=== PATIENT | female | born 1955 | race American Indian/Alaskan Native ===

== ENCOUNTER 2019-03-10 20:11 | Emergency (ER) | payer MEDICARE ==
--- NOTE | 2019-03-10 21:00 | Event Note ---
ED Screening Note Date of service: 03/10/19 Time: 20:46 ED Screening Note: 64 y/o female comes in detox and having thought of hurting herself. Wants to detox from cocaine and Alcohol. Last used cocaine 22 hours ago. Feeling jitter uses cocaine daily. This initial assessment/diagnostic orders/clinical plan/treatment(s) is/are subject to change based on patients health status, clinical progression and re- assessment by fellow clinical providers in the ED. Further treatment and workup at subsequent clinical providers discretion. Patient/guardian urged not to elope from the ED as their condition may be serious if not clinically assessed and managed. Initial orders include:
--- NOTE | 2019-03-10 21:11 | Emergency Department Report ---
ED Psych HPI - General Chief Complaint: Medical Clearance Stated Complaint: DETOX Time Seen by Provider: 03/10/19 20:45 Source: patient Mode of arrival: Ambulatory Limitations: No Limitations - History of Present Illness Initial Comments: Is a 64-year-old female that presents emergency room with complaints of desiring detox and suicidal ideations. Patient states she started using drugs. Patient states she is cocaine and alcohol regularly. Patient states she is having suicidal thoughts with plan. Patient states her plan is overdose. Patient stat es she feels depressed. Patient states she wants some help. MD Complaint: suicidal ideation, feels depressed -: Sudden Associated Psychiatric Symptoms: depression, suicidal ideation History of same: Yes Quality: constant Improves With: none Worsens With: none Context: recent alcohol abuse, recent drug abuse Associated Symptoms: denies: confusion, headache, shortness of breath, nausea, vomiting, syncope, insomnia If Self Harm: admits thoughts of, has plan - Related Data Home Medications Medication Instructions Recorded Confirmed Last Taken Lisinopril [Zestril] 20 mg PO QDAY 07/11/13 03/10/19 04/06/14 hydroCHLOROthiazide [Hctz] 20 mg PO QDAY 07/11/13 03/10/19 04/06/14 traZODone [Desyrel] 50 mg PO QHS 08/09/13 03/10/19 04/05/14 ARIPiprazole [Abilify TAB] 10 mg PO DAILY 03/23/14 03/10/19 04/06/14 Carvedilol [Coreg] 6.25 mg PO DAILY 04/06/14 03/10/19 04/06/14 Oxybutynin [Ditropan] 5 mg PO DAILY 04/06/14 03/10/19 04/06/14 Allopurinol [Zyloprim] 100 mg PO QDAY 03/10/19 03/10/19 03/10/19 Amiodarone HCl [Amiodarone 100 MG 200 mg PO BID 03/10/19 03/10/19 03/10/19 TAB] Budesonide/Formoterol Fumarate 10.2 gm IH Q4H 03/10/19 03/10/19 03/10/19 [Symbicort 160-4.5 Mcg Inhaler] Chlorpheniramine/Dextromethorp 1 each PO Q6HR 03/10/19 03/10/19 03/10/19 [Cough-Cold Tablet] Citalopram [celeXA] 10 mg PO QDAY 03/10/19 03/10/19 03/10/19 Pantoprazole [Protonix] 40 mg PO QDAY 03/10/19 03/10/19 03/10/19 amLODIPine [Norvasc] 10 mg PO DAILY 03/10/19 03/10/19 03/10/19 Previous Rx's Medication Instructions Recorded Last Taken Type Naproxen [Naprosyn TAB] 500 mg PO BID PRN #30 tablet 04/07/14 Unknown Rx Allergies Allergy/AdvReac Type Severity Reaction Status Date / Time codeine Allergy Rash Verified 07/11/13 09:12 Sulfa (Sulfonamide Allergy Rash Verified 07/11/13 09:12 Antibiotics) ED Review of Systems ROS: Stated complaint: DETOX Other details as noted in HPI Constitutional: denies: chills, fever Eyes: denies: eye pain, eye discharge, vision change ENT: denies: ear pain, throat pain Respiratory: denies: cough, shortness of breath, wheezing Cardiovascular: denies: chest pain, palpitations Endocrine: no symptoms reported Gastrointestinal: denies: abdominal pain, nausea, diarrhea Genitourinary: denies: urgency, dysuria, discharge Musculoskeletal: denies: back pain, joint swelling, arthralgia Skin: denies: rash, lesions Neurological: denies: headache, weakness, paresthesias Psychiatric: depression, suicidal thoughts. denies: anxiety Hematological/Lymphatic: denies: easy bleeding, easy bruising ED Past Medical Hx - Past Medical History Previous Medical History?: Yes Hx Hypertension: Yes Hx Congestive Heart Failure: Yes Hx GERD: Yes Hx Renal Disease: Yes (ckd) Hx Arthritis: Yes Hx Psychiatric Treatment: Yes (SCHIZO-AFFECTIVE) Hx COPD: Yes - Surgical History Past Surgical History?: Yes Hx Cholecystectomy: Yes Additional Surgical History: Cholecystectomy and hysterectomy, rt roary cuff, heart ablation - Family History Family history: no significant - Social History Smoking Status: Current Every Day Smoker Substance Use Type: Alcohol, Cocaine - Medications Home Medications: Home Medications Medication Instructions Recorded Confirmed Last Taken Type Lisinopril [Zestril] 20 mg PO QDAY 07/11/13 03/10/19 04/06/14 History hydroCHLOROthiazide [Hctz] 20 mg PO QDAY 07/11/13 03/10/19 04/06/14 History traZODone [Desyrel] 50 mg PO QHS 08/09/13 03/10/19 04/05/14 History ARIPiprazole [Abilify TAB] 10 mg PO DAILY 03/23/14 03/10/19 04/06/14 History Carvedilol [Coreg] 6.25 mg PO DAILY 04/06/14 03/10/19 04/06/14 History Oxybutynin [Ditropan] 5 mg PO DAILY 04/06/14 03/10/19 04/06/14 History Naproxen [Naprosyn TAB] 500 mg PO BID PRN #30 tablet 04/07/14 03/10/19 Unknown Rx Allopurinol [Zyloprim] 100 mg PO QDAY 03/10/19 03/10/19 03/10/19 History Amiodarone HCl [Amiodarone 100 MG 200 mg PO BID 03/10/19 03/10/19 03/10/19 History TAB] Budesonide/Formoterol Fumarate 10.2 gm IH Q4H 03/10/19 03/10/19 03/10/19 History [Symbicort 160-4.5 Mcg Inhaler] Chlorpheniramine/Dextromethorp 1 each PO Q6HR 03/10/19 03/10/19 03/10/19 History [Cough-Cold Tablet] Citalopram [celeXA] 10 mg PO QDAY 03/10/19 03/10/19 03/10/19 History Pantoprazole [Protonix] 40 mg PO QDAY 03/10/19 03/10/19 03/10/19 History amLODIPine [Norvasc] 10 mg PO DAILY 03/10/19 03/10/19 03/10/19 History ED Physical Exam - General Limitations: No Limitations General appearance: alert, in no apparent distress - Head Head exam: Present: atraumatic, normocephalic - Eye Eye exam: Present: normal appearance - ENT ENT exam: Present: mucous membranes moist - Neck Neck exam: Present: normal inspection - Respiratory Respiratory exam: Present: normal lung sounds bilaterally. Absent: respiratory distress - Cardiovascular Cardiovascular Exam: Present: regular rate, normal rhythm. Absent: systolic murmur, diastolic murmur, rubs, gallop - GI/Abdominal GI/Abdominal exam: Present: soft, normal bowel sounds - Rectal Rectal exam: Present: deferred - Extremities Exam Extremities exam: Present: normal inspection - Back Exam Back exam: Present: normal inspection - Neurological Exam Neurological exam: Present: alert, oriented X3 - Psychiatric Psychiatric exam: Present: depressed, suicidal ideation - Skin Skin exam: Present: warm, dry, intact, normal color. Absent: rash ED Course Vital Signs 03/10/19 03/11/19 03/11/19 20:46 01:57 07:00 Temperature 97.9 F 98.4 F 98.1 F Pulse Rate 80 89 80 Respiratory 16 18 18 Rate Blood Pressure 177/80 Blood Pressure 158/75 161/76 [Left] O2 Sat by Pulse 100 98 99 Oximetry 03/11/19 03/11/19 10:08 10:09 Temperature Pulse Rate 80 80 Respiratory Rate Blood Pressure 161/76 161/76 Blood Pressure [Left] O2 Sat by Pulse Oximetry - Reevaluation(s) Reevaluation #1: I discussed all results with patient. Patient is medically clear. Patient will remain in the ER until she is cleared by psychiatry. 03/11/19 00:09 ED Medical Decision Making - Lab Data Result diagrams: 03/10/19 21:32 03/10/19 21:32 - Medical Decision Making pt is 64-year-old female that presents emergency room with complaints of sore ideations, depression. Patient has a plan to overdose. Patient also came to the ER for detox. Patient is medically clear. Patient's labs are essentially unremarkable except for elevated creatinine acute dehydration. - Differential Diagnosis suicidal ideations. Depression. Critical care attestation.: If time is entered above; I have spent that time in minutes in the direct care of this critically ill patient, excluding procedure time. ED Disposition Clinical Impression: Suicidal ideations, Drug abuse, Alcohol abuse, Desire for detoxification, Medical clearance for psychiatric admission Depression Qualifiers: Depression Type: unspecified Qualified Code(s): F32.9 - Major depressive disorder, single episode, unspecified CKD (chronic kidney disease) Qualifiers: Chronic kidney disease stage: unspecified stage Qualified Code(s): N18.9 - Chronic kidney disease, unspecified Disposition: DC/TX-65 PSY HOSP/PSY UNIT Is pt being admited?: No Does the pt Need Aspirin: No Condition: Stable Time of Disposition: 00:11
[2019-03-10 21:51] LABS: Mean Corpuscular HGB Conc 32 % (30-34); Mean Corpuscular Volume 89 fl (79-97); Platelet Count 412 K/mm3 (140-440); Red Blood Count 4.48 M/mm3 (3.65-5.03)
[2019-03-10 22:07] LABS: Alanine Aminotransferase 7 units/L (7-56); Albumin 3.7 g/dL (3.9-5); BUN/Creatinine Ratio 12; Blood Urea Nitrogen 22 mg/dL (7-17); Hemolysis Index 8
[2019-03-10 22:59] LABS: Basophils % (Manual) 0 % (0.0-1.8); Total Cells Counted 100
[2019-03-10 23:00] LABS: Anisocytosis 1+; Ovalocytes 1+; Platelet Estimate Consistent w Auto
[2019-03-11 00:31] LABS: Bilirubin,Urine NEG (Negative); Blood,Urine NEG (Negative); Color,Urine Yellow (Yellow); Mucus,Urine FEW /HPF; Protein,Urine <15 mg/dL mg/dL (Negative); Urobilinogen,Urine < 2.0 mg/dL (<2.0)
[2019-03-11 00:32] LABS: Amphetamine Screen,Urine PRESUMPTIVE NEGATIVE; Benzodiazepines Screen,Urine PRESUMPTIVE NEGATIVE; Cannabinoid Screen,Urine PRESUMPTIVE NEGATIVE; Methadone Screen,Urine PRESUMPTIVE NEGATIVE; Opiate Screen,Urine PRESUMPTIVE NEGATIVE
[2019-03-11 00:50] LABS: Cocaine Screen,Urine PRESUMPTIVE POSITIVE
[2019-03-11] MEDS: ACETAMINOPHEN 325 MG TAB PO PRN ×2 (03:10→11:41)
[2019-03-11] MEDS ORDERED: amLODIPine 10 MG TAB PO SCH (10:00)
[2019-03-11] MEDS ORDERED: LISINOPRIL 20 MG TAB PO SCH (10:00)
[2019-03-11 10:09] VITALS: BP 161/76
--- NOTE | 2019-03-11 13:04 | Consultation ---
History of Present Illness - Reason for Consult Consult date: 03/11/19 Reason for consult: Mental Health Evaluation Requesting physician: BOY CRUMP III - Chief Complaint Chief complaint: " I can't take it no more" - History of Present Psychiatric Illness Patient is a 64 y/o female that presents for evaluation. Patient presented to the ER with complaints of pain to hip. She reported ongoing pain for the past 4 months that has been diagnosed as either gout or arthritis. She reports the pain has been so significant that she had begun self-medicating. She was smoking crack cocaine to help manage her pain and her depression. She recently lost the love of her life to cancer and that along with the pain made her suicidal. She states she knows it is not her time, but she doesn't want to be here. She denies auditory and visual hallucinations. She denies any homicidal ideation. Medications and Allergies Allergies Allergy/AdvReac Type Severity Reaction Status Date / Time codeine Allergy Rash Verified 07/11/13 09:12 Sulfa (Sulfonamide Allergy Rash Verified 07/11/13 09:12 Antibiotics) Home Medications Medication Instructions Recorded Confirmed Last Taken Type Lisinopril [Zestril] 20 mg PO QDAY 07/11/13 03/10/19 04/06/14 History hydroCHLOROthiazide [Hctz] 20 mg PO QDAY 07/11/13 03/10/19 04/06/14 History traZODone [Desyrel] 50 mg PO QHS 08/09/13 03/10/19 04/05/14 History ARIPiprazole [Abilify TAB] 10 mg PO DAILY 03/23/14 03/10/19 04/06/14 History Carvedilol [Coreg] 6.25 mg PO DAILY 04/06/14 03/10/19 04/06/14 History Oxybutynin [Ditropan] 5 mg PO DAILY 04/06/14 03/10/19 04/06/14 History Naproxen [Naprosyn TAB] 500 mg PO BID PRN #30 tablet 04/07/14 03/10/19 Unknown Rx Allopurinol [Zyloprim] 100 mg PO QDAY 03/10/19 03/10/19 03/10/19 History Amiodarone HCl [Amiodarone 100 MG 200 mg PO BID 10/04/1803/10/19 03/10/19 History TAB] Budesonide/Formoterol Fumarate 10.2 gm IH Q4H 03/10/19 03/10/19 03/10/19 History [Symbicort 160-4.5 Mcg Inhaler] Chlorpheniramine/Dextromethorp 1 each PO Q6HR 03/10/19 03/10/19 03/10/19 History [Cough-Cold Tablet] Citalopram [celeXA] 10 mg PO QDAY 03/10/19 03/10/19 03/10/19 History Pantoprazole [Protonix] 40 mg PO QDAY 03/10/19 03/10/19 03/10/19 History amLODIPine [Norvasc] 10 mg PO DAILY 03/10/19 03/10/19 03/10/19 History Active Meds: Active Medications Acetaminophen (Tylenol) 650 mg PO Q8H PRN PRN Reason: Pain, Mild (1-3) Stop: 03/15/19 02:42 Last Admin: 03/11/19 11:41 Dose: 650 mg Documented by: Amlodipine Besylate (Norvasc) 10 mg PO DAILY [facility] Last Admin: 03/11/19 10:08 Dose: 10 mg Documented by: Lisinopril (Zestril) 20 mg PO QDAY [facility] Last Admin: 03/11/19 10:09 Dose: 20 mg Documented by: Trazodone HCl (Desyrel) 50 mg PO QHS [facility] Past psychiatric history - Past Medical History Past Medical History: hypertension - past Psychiatric treatment and history Psych: Anxiety, Depression - Social History Social history: smoking Mental Status Exam - Vital signs Last Vital Signs Temp 98.1 F 03/11/19 07:00 Pulse 80 03/11/19 10:09 Resp 18 03/11/19 07:00 BP 161/76 03/11/19 10:09 Pulse Ox 99 03/11/19 07:00 - Exam Orientation: time, place, person Affect: depressed, anxious Mood: congruent with affect Thought Process: Circumstantial Perceptions: none Speech: normal rate and pattern Concentration: distractible Motor activity: restless Level of consciousness: alert Memory: Intact Sleep Symptoms: Insomnia Interaction: irritable, guarded Results Result Diagrams: 03/10/19 21:32 03/10/19 21:32 Abnormal lab results 03/10/19 03/10/19 03/10/19 Range/Units 21:32 21:32 21:32 RDW 17.0 H (13.2-15.2) % Lymphocytes % (Manual) 39.0 H (13.4-35.0) % BUN 22 H (7-17) mg/dL Creatinine 1.8 H (0.7-1.2) mg/dL Glucose 149 H (65-100) mg/dL Albumin 3.7 L (3.9-5) g/dL Salicylates < 0.3 L (2.8-20.0) mg/dL Acetaminophen (10.0-30.0) ug/mL 03/10/19 Range/Units 21:32 RDW (13.2-15.2) % Lymphocytes % (Manual) (13.4-35.0) % BUN (7-17) mg/dL Creatinine (0.7-1.2) mg/dL Glucose (65-100) mg/dL Albumin (3.9-5) g/dL Salicylates (2.8-20.0) mg/dL Acetaminophen < 5.0 L (10.0-30.0) ug/mL All other labs normal. Assessment and Plan Assessment and plan: Assessment and Plan MDD and SI Patient to continue abilify. we discussed current meds and side effects. She has been accepted at [facility]. No changes at this time. We will staff with Dr. Cody MD
[2019-03-11] MEDS ORDERED: traZODone 50 MG TAB PO SCH (22:00)
== END 2019-03-11 15:17 ==
LOC: ED 20:11
DX: F32.9 Major depressive disorder, single episode, unspecified (principal); Z88.2 Allergy status to sulfonamides; Z88.6 Allergy status to analgesic agent
CPT/HCPCS: 36415; 80053; 80307; 80320; 81001; 85007; 85025; G0480

== ENCOUNTER 2019-03-24 06:11 | Inpatient (IN) | payer MEDICARE ==
--- NOTE | 2019-03-24 06:45 | XRay Report ---
CHEST 1 VIEW INDICATION / CLINICAL INFORMATION: Chest Pain. COMPARISON: None available. FINDINGS: SUPPORT DEVICES: None. HEART / MEDIASTINUM: No significant abnormality. LUNGS / PLEURA: No significant pulmonary or pleural abnormality. No pneumothorax. ADDITIONAL FINDINGS: No significant additional findings. IMPRESSION: 1. No acute findings. Signer Name: Titus Kaur MD Signed: 03/24/2019 6:41 AM Workstation Name: [email or web address]
--- NOTE | 2019-03-24 08:24 | Emergency Department Report ---
ED Chest Pain HPI - General Chief Complaint: Chest Pain Stated Complaint: VALERIO/FEVER/CP/VISION BLURRED Time Seen by Provider: 03/24/19 08:18 Source: patient Mode of arrival: Wheelchair Limitations: Physical Limitation - History of Present Illness Initial Comments: 64-year-old -[place] female patient with history of hypertension, CKD, and drug and alcohol abuse presents to the ED with complaints of left-sided chest pain this morning. Patient states the pain is stabbing and 8 out of 10 in severity. She denies history of AR/CVA/DVT/PE, recent long travel, or leg pain/swelling. Denies hormonal therapy. She states she is also having some sh ortness of breath. Mom has history of heart disease. Pain worsens with exertion. She also states she is having chills and feels like she has a fever. -: Sudden Onset: during rest Pain Location: left chest Severity scale (0 -10): 8 Quality: sharp Consistency: constant Improves With: nothing Worsens With: inspiration re: denies: sense of impending doom Treatments Prior to Arrival: none - Related Data Home Medications Medication Instructions Recorded Confirmed Last Taken Lisinopril [Zestril] 20 mg PO QDAY 07/11/13 03/10/19 04/06/14 hydroCHLOROthiazide [Hctz] 20 mg PO QDAY 07/11/13 03/10/19 04/06/14 traZODone [Desyrel] 50 mg PO QHS 08/09/13 03/10/19 04/05/14 ARIPiprazole [Abilify TAB] 10 mg PO DAILY 03/23/14 03/10/19 04/06/14 Carvedilol [Coreg] 6.25 mg PO DAILY 04/06/14 03/10/19 04/06/14 Oxybutynin [Ditropan] 5 mg PO DAILY 04/06/14 03/10/19 04/06/14 Allopurinol [Zyloprim] 100 mg PO QDAY 03/10/19 03/10/19 03/10/19 Amiodarone HCl [Amiodarone 100 MG 200 mg PO BID 03/10/19 03/10/19 03/10/19 TAB] Budesonide/Formoterol Fumarate 10.2 gm IH Q4H 03/10/19 03/10/1903/10/19 [Symbicort 160-4.5 Mcg Inhaler] Chlorpheniramine/Dextromethorp 1 each PO Q6HR 03/10/19 03/10/19 03/10/19 [Cough-Cold Tablet] Citalopram [celeXA] 10 mg PO QDAY 03/10/19 03/10/19 03/10/19 Pantoprazole [Protonix] 40 mg PO QDAY 03/10/19 03/10/19 03/10/19 amLODIPine [Norvasc] 10 mg PO DAILY 03/10/19 03/10/19 03/10/19 Previous Rx's Medication Instructions Recorded Last Taken Type Naproxen [Naprosyn TAB] 500 mg PO BID PRN #30 tablet 04/07/14 Unknown Rx Allergies Allergy/AdvReac Type Severity Reaction Status Date / Time codeine Allergy Rash Verified 07/11/13 09:12 Sulfa (Sulfonamide Allergy Rash Verified 07/11/13 09:12 Antibiotics) Heart Score - HEART Score History: Slightly suspicious EKG: Non-specific Age: 45-65 Risk factors: > 3 risk factors or hx of atherosclerotic disease Troponin: < normal limit HEART Score: 4 - Critical Actions Critical Actions: 4-6 pts:12-16.6% risk of adverse cardiac event. Should be admitted ED Review of Systems ROS: Stated complaint: VALERIO/FEVER/CP/VISION BLURRED Other details as noted in HPI Constitutional: no symptoms reported, chills, fever Eyes: denies: vision change ENT: throat pain. denies: ear pain Respiratory: cough (non productive, very mild per pt ), shortness of breath Cardiovascular: chest pain Gastrointestinal: denies: abdominal pain, nausea, vomiting Neurological: denies: headache, weakness, numbness, confusion, abnormal gait ED Past Medical Hx - Past Medical History Previous Medical History?: Yes Hx Hypertension: Yes Hx Congestive Heart Failure: Yes Hx GERD: Yes Hx Renal Disease: Yes (ckd) Hx Arthritis: Yes Hx Psychiatric Treatment: Yes (SCHIZO-AFFECTIVE) Hx COPD: Yes - Surgical History Past Surgical History?: Yes Hx Cholecystectomy: Yes Additional Surgical History: Cholecystectomy and hysterectomy, rt roary cuff, heart ablation - Social History Smoking Status: Current Every Day Smoker Substance Use Type: None - Medications Home Medications: Home Medications Medication Instructions Recorded Confirmed Last Taken Type Lisinopril [Zestril] 20 mg PO QDAY 07/11/13 03/10/19 04/06/14 History hydroCHLOROthiazide [Hctz] 20 mg PO QDAY 07/11/13 03/10/19 04/06/14 History traZODone [Desyrel] 50 mg PO QHS 08/09/13 03/10/19 04/05/14 History ARIPiprazole [Abilify TAB] 10 mg PO DAILY 03/23/14 03/10/19 04/06/14 History Carvedilol [Coreg] 6.25 mg PO DAILY 04/06/14 03/10/19 04/06/14 History Oxybutynin [Ditropan] 5 mg PO DAILY 04/06/14 03/10/19 04/06/14 History Naproxen [Naprosyn TAB] 500 mg PO BID PRN #30 tablet 04/07/14 03/10/19 Unknown Rx Allopurinol [Zyloprim] 100 mg PO QDAY 03/10/19 03/10/19 03/10/19 History Amiodarone HCl [Amiodarone 100 MG 200 mg PO BID 03/10/19 03/10/19 03/10/19 History TAB] Budesonide/Formoterol Fumarate 10.2 gm IH Q4H 03/10/19 03/10/19 03/10/19 History [Symbicort 160-4.5 Mcg Inhaler] Chlorpheniramine/Dextromethorp 1 each PO Q6HR 03/10/19 03/10/19 03/10/19 History [Cough-Cold Tablet] Citalopram [celeXA] 10 mg PO QDAY 03/10/19 03/10/19 03/10/19 History Pantoprazole [Protonix] 40 mg PO QDAY 03/10/19 03/10/19 03/10/19 History amLODIPine [Norvasc] 10 mg PO DAILY 03/10/19 03/10/19 03/10/19 History ED Physical Exam - General Limitations: Physical Limitation - Head Head exam: Present: atraumatic, normocephalic - Eye Eye exam: Present: normal appearance, PERRL - ENT ENT exam: Present: mucous membranes moist, other (minimal erythema noted of oropharynx) - Neck Neck exam: Present: normal inspection. Absent: tenderness, lymphadenopathy - Respiratory Respiratory exam: Present: normal lung sounds bilaterally. Absent: respiratory distress - Cardiovascular Cardiovascular Exam: Present: regular rate, normal rhythm, normal heart sounds - GI/Abdominal GI/Abdominal exam: Present: soft, normal bowel sounds. Absent: tenderness - Extremities Exam Extremities exam: Present: normal inspection. Absent: pedal edema, joint swelling, calf tenderness - Back Exam Back exam: Present: normal inspection - Neurological Exam Neurological exam: Present: alert, oriented X3 - Psychiatric Psychiatric exam: Present: normal affect, normal mood - Skin Skin exam: Present: warm, dry, intact, normal color. Absent: rash ED Course Vital Signs 03/24/19 03/24/19 03/24/19 06:14 08:08 08:30 Temperature 97.7 F Pulse Rate 62 60 62 Respiratory 22 13 10 L Rate Blood Pressure 140/57 163/65 Blood Pressure [Right] O2 Sat by Pulse 98 98 Oximetry 03/24/19 03/24/19 03/24/19 08:40 09:00 09:30 Temperature 98.0 F Pulse Rate 59 L 61 64 Respiratory 15 12 16 Rate Blood Pressure 139/70 157/67 Blood Pressure 132/54 [Right] O2 Sat by Pulse 100 96 97 Oximetry 03/24/19 03/24/19 03/24/19 10:00 10:30 11:00 Temperature Pulse Rate 64 76 70 Respiratory 14 14 22 Rate Blood Pressure 170/67 152/74 152/74 Blood Pressure [Right] O2 Sat by Pulse 97 98 93 Oximetry ED Medical Decision Making - Lab Data Result diagrams: 03/24/19 08:10 03/24/19 08:10 Lab Results 03/24/19 03/24/19 03/24/19 Range/Units 08:10 08:10 08:10 WBC 5.5 (4.5-11.0) K/mm3 RBC 4.26 (3.65-5.03) M/mm3 Hgb 12.1 (10.1-14.3) gm/dl Hct 37.9 (30.3-42.9) % MCV 89 (79-97) fl MCH 28 (28-32) pg MCHC 32 (30-34) % RDW 17.1 H (13.2-15.2) % Plt Count 334 (140-440) K/mm3 Lymph % (Auto) 33.7 (13.4-35.0) % [place] % (Auto) 10.9 H (0.0-7.3) % Eos % (Auto) 1.9 (0.0-4.3) % Baso % (Auto) 0.8 (0.0-1.8) % Lymph # 1.9 (1.2-5.4) K/mm3 [place] # 0.6 (0.0-0.8) K/mm3 Eos # 0.1 (0.0-0.4) K/mm3 Baso # 0.0 (0.0-0.1) K/mm3 Seg Neutrophils % 52.7 (40.0-70.0) % Seg Neutrophils # 2.9 (1.8-7.7) K/mm3 Sodium 143 (137-145) mmol/L Potassium 4.6 (3.6-5.0) mmol/L Chloride 104.4 (98-107) mmol/L Carbon Dioxide 25 (22-30) mmol/L Anion Gap 18 mmol/L BUN 25 H (7-17) mg/dL Creatinine 2.0 H (0.7-1.2) mg/dL Estimated GFR 30 ml/min BUN/Creatinine Ratio 13 % Glucose 81 (65-100) mg/dL Calcium 8.6 (8.4-10.2) mg/dL Total Creatine Kinase 57 (30-135) units/L Troponin T < 0.010 (0.00-0.029) ng/mL - EKG Data Rate: normal - Radiology Data Radiology results: report reviewed CHEST 1 VIEW INDICATION / CLINICAL INFORMATION: Chest Pain. COMPARISON: None available. FINDINGS: SUPPORT DEVICES: None. HEART / MEDIASTINUM: No significant abnormality. LUNGS / PLEURA: No significant pulmonary or pleural abnormality. No pneumothorax. ADDITIONAL FINDINGS: No significant additional findings. IMPRESSION: 1. No acute findings. - Medical Decision Making Patient here were complaints of chest pain and shortness of breath. History of cocaine abuse. Troponin and normal EKG without acute findings. Chest x-ray without acute findings. Heart Score = 4. Patient to be admitted for observation given heart score. Critical care attestation.: If time is entered above; I have spent that time in minutes in the direct care of this critically ill patient, excluding procedure time. ED Disposition Clinical Impression: Chest pain Qualifiers: Chest pain type: other chest pain Qualified Code(s): R07.89 - Other chest pain; R07.8 - Other chest pain Disposition: DC-09 OP ADMIT IP TO THIS HOSP Is pt being admited?: Yes Condition: Stable
[2019-03-24] MEDS ORDERED: ASPIRIN 81 MG TAB CHEW PO ONE (08:26)
[2019-03-24 08:39] LABS: Basophils % (Auto) 0.8 % (0.0-1.8); Eosinophils # (Auto) 0.1 K/mm3 (0.0-0.4); Eosinophils % (Auto) 1.9 % (0.0-4.3); Hematocrit 37.9 % (30.3-42.9); Hemoglobin 12.1 gm/dl (10.1-14.3); Lymphocytes # (Auto) 1.9 K/mm3 (1.2-5.4); Lymphocytes % (Auto) 33.7 % (13.4-35.0); Mean Corpuscular HGB Conc 32 % (30-34); Mean Corpuscular Volume 89 fl (79-97); Monocytes # (Auto) 0.6 K/mm3 (0.0-0.8); Monocytes % (Auto) 10.9 % (0.0-7.3); Platelet Count 334 K/mm3 (140-440); Red Blood Count 4.26 M/mm3 (3.65-5.03); Red Cell Distribution Width 17.1 % (13.2-15.2)
[2019-03-24 09:01] LABS: BUN/Creatinine Ratio 13; Blood Urea Nitrogen 25 mg/dL (7-17); Calcium 8.6 mg/dL (8.4-10.2); Hemolysis Index 2
--- NOTE | 2019-03-24 11:53 | History and Physical Report ---
History of Present Illness Date of examination: 03/24/19 Date of admission: 03/24/19 10:18 Chief complaint: Chest pain History of present illness: Patient is 64-year-old with history of hypertension and hyperlipidemia, CHF and COPD. He presents with chest pain and shortness of breath with generalized weakness. Chest pain is 8 out of 10 left-sided chest. It is a sharp pain with no radiation. Pain gets worse on exertion. She also complains of shortness of breath worse on exertion, and generalized weakness. Patient therefore came to the Emergency Department for Further Evaluation. She was seen and examined in Emergency Department. Initial Troponin Was Normal. Chest X-Ray Was Normal. Will place on Obervation to rule out acute coronary syndrome. Past History Past Medical History: COPD, heart failure, hypertension, hyperlipidemia, renal failure (chronic kidney disease), other (Schizophrenia,bipolar) Past Surgical History: hysterectomy, tonsillectomy, Other (shoulder surgery, cardiac cath) Social history: , smoking, alcohol abuse, full code Family history: CAD, cancer, diabetes, hypertension Medications and Allergies Allergies Allergy/AdvReac Type Severity Reaction Status Date / Time codeine Allergy Rash Verified 07/11/13 09:12 Sulfa (Sulfonamide Allergy Rash Verified 07/11/13 09:12 Antibiotics) Home Medications Medication Instructions Recorded Confirmed Last Taken Type Lisinopril [Zestril] 20 mg PO QDAY 07/11/13 03/10/19 04/06/14 History hydroCHLOROthiazide [Hctz] 20 mg PO QDAY 07/11/13 03/10/19 04/06/14 History traZODone [Desyrel] 50 mg PO QHS 08/09/13 03/10/19 04/05/14 History ARIPiprazole [Abilify TAB] 10 mg PO DAILY 03/23/14 03/10/19 04/06/14 History Carvedilol [Coreg] 6.25 mg PO DAILY 04/06/14 03/10/19 04/06/14 History Oxybutynin [Ditropan] 5 mg PO DAILY 04/06/14 03/10/19 04/06/14 History Naproxen [Naprosyn TAB] 500 mg PO BID PRN #30 tablet 04/07/14 03/10/19 Unknown Rx Allopurinol [Zyloprim] 100 mg PO QDAY 03/10/19 03/10/19 03/10/19 History Amiodarone HCl [Amiodarone 100 MG 200 mg PO BID 03/10/19 03/10/19 03/10/19 History TAB] Budesonide/Formoterol Fumarate 10.2 gm IH Q4H 03/10/19 03/10/19 03/10/19 History [Symbicort 160-4.5 Mcg Inhaler] Chlorpheniramine/Dextromethorp 1 each PO Q6HR 03/10/19 03/10/19 03/10/19 History [Cough-Cold Tablet] Citalopram [celeXA] 10 mg PO QDAY 03/10/19 03/10/19 03/10/19 History Pantoprazole [Protonix] 40 mg PO QDAY 03/10/19 03/10/19 03/10/19 History amLODIPine [Norvasc] 10 mg PO DAILY 03/10/19 03/10/19 03/10/19 History Review of Systems All systems: negative (No fever, No headache, no abd pain. All other systems reviewed and are negative) Exam - Physical Exam Narrative exam: Gen: Not in acute distress, lying in bed, HEENT: Normocephalic, atraumatic Neck: supple, no JVD Heart: S1 and S2 reg, no murmurs, rubs or gallop Lungs: Clear to auscultation, no rhonchi, no wheeze Abd: soft, non tender, non distended, normal BS, Ext: No edema, no clubbing, no cyanosis Neuro: Awake, alert, oriented X 3, no focal neurological signs - Constitutional Vitals: Temp Pulse Resp BP Pulse Ox 98.0 F 70 22 152/74 93 03/24/19 08:40 03/24/19 11:00 03/24/19 11:00 03/24/19 11:00 03/24/19 11:00 Results - Labs CBC & Chem 7: 03/25/19 04:11 03/25/19 04:11 Labs: Abnormal lab results 03/24/19 03/24/19 03/24/19 Range/Units 08:10 08:10 10:33 RDW 17.1 H (13.2-15.2) % Weber % (Auto) 10.9 H (0.0-7.3) % D-Dimer 342.50 H (0-234) ng/mlDDU BUN 25 H (7-17) mg/dL Creatinine 2.0 H (0.7-1.2) mg/dL Assessment and Plan Chest pain and shortness of breath Place on Observation serial Troponin stress test in am Urine drug screen elevated d-dimer. Will get V/Q scan Hypertension Resume home meds Monitor BP Hyperlipidemia chronic CHF Details unclear Will get Echo Chronic kidney disease Cr 2.0 COPD Schizophrenia stable Full code status
--- NOTE | 2019-03-24 13:00 | Nuclear Medicine Report ---
VENTILATION PERFUSION PULMONARY SCINTIGRAPHY HISTORY: Shortness of breath, chest pain COMPARISON: 03/24/2019 chest radiograph. TECHNIQUE: Radiopharmaceutical was inhaled. Tc-99m-MAA was then injected. Ventilation and perfusion images were acquired. RADIOPHARMACEUTICAL: 22 mCi of Xe-133 inhaled 5.3 mCi of Tc-99m-MAA injected FINDINGS: VENTILATION: No significant air trapping or defect. PERFUSION: No significant segmental or non-segmental defect. Additional Findings: None. IMPRESSION: 1. Low probability for pulmonary embolism. Signer Name: Javier Augustine Jr, MD Signed: 03/24/2019 12:56 PM Workstation Name: [id number]
--- NOTE | 2019-03-24 14:06 | Vascular Lab Report ---
DUPLEX DOPPLER LOWER EXTREMITY VEINS, BILATERAL INDICATION: Bilateral leg pain for 3 days. TECHNIQUE: Duplex doppler imaging was performed through the veins of both lower extremities using ve nous compression and other maneuvers. COMPARISON: No relevant prior imaging study available. FINDINGS: Right Common femoral vein: Negative. Right Superficial femoral vein: Negative. Right Popliteal vein: Negative. Right Calf veins: Negative. Left Common femoral vein: Negative. Left Superficial femoral vein: Negative. Left Popliteal vein: Negative. Left Calf veins: Negative. Additional findings: None.. IMPRESSION: No sonographic evidence for DVT in either lower extremity. Signer Name: Javier Augustine Jr, MD Signed: 03/24/2019 2:01 PM Workstation Name: [id number]
[2019-03-24] MEDS ORDERED: ONDANSETRON 4 MG/2 ML INJ IV PRN (14:37)
[2019-03-24] MEDS ORDERED: NITROGLYCERIN 0.4 MG TAB SUBL SL PRN (14:50)
[2019-03-24] MEDS: MORPHINE 2 MG/1 ML INJ IV PRN ×2 (16:27→22:05)
[2019-03-24] MEDS: CARVEDILOL 6.25 MG TAB PO SCH ×2 (16:28→22:03)
[2019-03-24] MEDS: SODIUM CHLORIDE 0.9% 1000 ML 1,000 ML IV SCH (16:28)
[2019-03-24 18:03] LABS: Creatine Kinase MB 1.3 ng/mL (0.0-4.0)
[2019-03-24] MEDS: PANTOPRAZOLE 40 MG TAB PO SCH (18:52)
[2019-03-24] MEDS ORDERED: LORazepam 2 MG/ML VIAL IV PRN (21:00)
[2019-03-24] MEDS: amLODIPine 10 MG TAB PO SCH (22:02)
[2019-03-24] MEDS: traZODone 50 MG TAB PO SCH (22:02)
[2019-03-24] MEDS: FLUTICASONE PROPIONATE NASAL SPRAY 16 GM NS SCH (22:03)
[2019-03-24] MEDS: HEPARIN 5,000 UNIT/1 ML VIAL SUB-Q SCH (22:08)
[2019-03-24] MEDS: ACETAMINOPHEN 325 MG TAB PO PRN (23:55)
[2019-03-25 04:51] LABS: Basophils # (Auto) 0.1 K/mm3 (0.0-0.1); Basophils % (Auto) 0.9 % (0.0-1.8); Eosinophils # (Auto) 0.1 K/mm3 (0.0-0.4); Hematocrit 32.7 % (30.3-42.9); Hemoglobin 10.7 gm/dl (10.1-14.3); Lymphocytes # (Auto) 2.1 K/mm3 (1.2-5.4); Lymphocytes % (Auto) 31.5 % (13.4-35.0); Mean Corpuscular HGB Conc 33 % (30-34); Mean Corpuscular Volume 87 fl (79-97); Monocytes # (Auto) 0.9 K/mm3 (0.0-0.8); Monocytes % (Auto) 14.4 % (0.0-7.3); Platelet Count 298 K/mm3 (140-440); Red Blood Count 3.74 M/mm3 (3.65-5.03); Red Cell Distribution Width 17.3 % (13.2-15.2)
[2019-03-25 05:02] LABS: Calcium 7.8 mg/dL (8.4-10.2)
[2019-03-25] MEDS: SODIUM CHLORIDE 0.9% 1000 ML 1,000 ML IV SCH (06:05)
[2019-03-25] MEDS: PANTOPRAZOLE 40 MG TAB PO SCH (10:21)
[2019-03-25] MEDS: amLODIPine 10 MG TAB PO SCH (10:21)
[2019-03-25] MEDS: CARVEDILOL 6.25 MG TAB PO SCH ×2 (10:21→23:00)
[2019-03-25] MEDS: ASPIRIN EC 325 MG TAB PO SCH (10:22)
[2019-03-25] MEDS: HEPARIN 5,000 UNIT/1 ML VIAL SUB-Q SCH ×2 (10:22→23:00)
[2019-03-25] MEDS: FLUTICASONE PROPIONATE NASAL SPRAY 16 GM NS SCH (10:28)
--- NOTE | 2019-03-25 15:59 | Progress Note ---
Assessment and Plan Assessment and plan: Chest pain and shortness of breath Placed on Observation serial Troponins neg stress test not done because she did V/Q scan and needs 24 hrs. Urine drug screen pending Consult cardiology Hypertension Resume home meds Monitor BP Hyperlipidemia chronic CHF Details unclear Will get Echo Chronic kidney disease Cr 1.9 today COPD Schizophrenia stable Fever 100.9 last night Obtain UA, urinalysis, blood cultures X 2. may start empiric Antibiotics if any more fever Full code status History Interval history: No chest pain currently Fever last night Hospitalist Physical - Physical exam Narrative exam: Gen: Not in acute distress, lying in bed, HEENT: Normocephalic, atraumatic Neck: supple, no JVD Heart: S1 and S2 reg, no murmurs, rubs or gallop Lungs: Clear to auscultation, no rhonchi, no wheeze Abd: soft, non tender, non distended, normal BS, Ext: No edema, no clubbing, no cyanosis Neuro: Awake, alert, oriented X 3, no focal neurological signs - Constitutional Vitals: Temp Pulse Resp BP Pulse Ox 98.9 F 71 22 143/61 94 03/25/19 05:25 03/25/19 10:21 03/25/19 05:25 03/25/19 10:21 03/25/19 05:25 Results - Labs CBC & Chem 7: 03/25/19 04:11 03/25/19 04:11 Labs: Laboratory Last Values WBC 6.5 K/mm3 (4.5-11.0) 03/25/19 04:11 RBC 3.74 M/mm3 (3.65-5.03) 03/25/19 04:11 Hgb 10.7 gm/dl (10.1-14.3) 03/25/19 04:11 Hct 32.7 % (30.3-42.9) 03/25/19 04:11 MCV 87 fl (79-97) 03/25/19 04:11 MCH 29 pg (28-32) 03/25/19 04:11 MCHC 33 % (30-34) 03/25/19 04:11 RDW 17.3 % (13.2-15.2) H 03/25/19 04:11 Plt Count 298 K/mm3 (140-440) 03/25/19 04:11 Lymph % (Auto) 31.5 % (13.4-35.0) 03/25/19 04:11 [place] % (Auto) 14.4 % (0.0-7.3) H 03/25/19 04:11 Eos % (Auto) 1.0 % (0.0-4.3) 03/25/19 04:11 Baso % (Auto) 0.9 % (0.0-1.8) 03/25/19 04:11 Lymph # 2.1 K/mm3 (1.2-5.4) 03/25/19 04:11 [place] # 0.9 K/mm3 (0.0-0.8) H 03/25/19 04:11 Eos # 0.1 K/mm3 (0.0-0.4) 03/25/19 04:11 Baso # 0.1 K/mm3 (0.0-0.1) 03/25/19 04:11 Seg Neutrophils % 52.2 % (40.0-70.0) 03/25/19 04:11 Seg Neutrophils # 3.4 K/mm3 (1.8-7.7) 03/25/19 04:11 D-Dimer 342.50 ng/mlDDU (0-234) H 03/24/19 10:33 Sodium 138 mmol/L (137-145) 03/25/19 04:11 Potassium 4.6 mmol/L (3.6-5.0) 03/25/19 04:11 Chloride 103.5 mmol/L (98-107) 03/25/19 04:11 Carbon Dioxide 24 mmol/L (22-30) 03/25/19 04:11 Anion Gap 15 mmol/L 03/25/19 04:11 BUN 19 mg/dL (7-17) H 03/25/19 04:11 Creatinine 1.9 mg/dL (0.7-1.2) H 03/25/19 04:11 Estimated GFR 32 ml/min 03/25/19 04:11 BUN/Creatinine Ratio 10 % 03/25/19 04:11 Glucose 83 mg/dL (65-100) 03/25/19 04:11 Calcium 7.8 mg/dL (8.4-10.2) L 03/25/19 04:11 Total Creatine Kinase 59 units/L (30-135) 03/24/19 17:20 CK-MB (CK-2) 1.3 ng/mL (0.0-4.0) 03/24/19 17:20 CK-MB (CK-2) Rel Index 2.2 (0-4) 03/24/19 17:20 Troponin T < 0.010 ng/mL (0.00-0.029) 03/24/19 17:20 Active Medications - Current Medications Current Medications: Generic Name Dose Route Start Last Admin Trade Name Freq PRN Reason Stop Dose Admin Acetaminophen 650 mg 03/24/19 14:37 03/24/19 23:55 Tylenol PO 650 mg Q4H PRN Administration Pain MILD(1-3)/Fever >100.5/CARROLL Amlodipine Besylate 10 mg 03/24/19 22:00 03/25/19 10:21 Amlodipine PO 10 mg QDAY MARCIO Administration Aspirin 325 mg 03/25/19 10:00 03/25/19 10:22 Ecotrin PO 325 mg QDAY MARCIO Administration Carvedilol 6.25 mg 03/24/19 15:00 03/25/19 10:21 Coreg PO 6.25 mg BID MARCIO Administration Fluticasone Propionate 100 mcg 03/24/19 22:00 03/25/19 10:28 Flonase NS 100 mcg QDAY MARCIO Administration Heparin Sodium (Porcine) 5,000 unit 03/24/19 22:00 03/25/19 10:22 Heparin SUB-Q 5,000 unit Q12HR MARCIO Administration Sodium Chloride 1,000 mls @ 75 mls/hr 03/24/19 15:00 03/25/19 06:05 Nacl 0.9% 1000 Ml IV 75 mls/hr DIRECT MARCIO Administration Lorazepam 0.5 mg 03/24/19 21:00 03/24/19 20:50 Ativan IV 0.5 mg Q8HR PRN Administration Anxiety Morphine Sulfate 2 mg 03/24/19 14:37 03/24/19 22:05 Morphine IV 2 mg Q4H PRN Administration Pain, Moderate (4-6) Nitroglycerin 0.4 mg 03/24/19 14:50 Nitrostat SL Q5M PRN Chest Pain Ondansetron HCl 4 mg 03/24/19 14:37 Zofran IV Q8H PRN Nausea And Vomiting Pantoprazole Sodium 40 mg 03/24/19 19:00 03/25/19 10:21 Protonix PO 40 mg QDAY MRACIO Administration Sodium Chloride 10 ml 03/24/19 22:00 03/25/19 10:22 Sodium Chloride Flush Syringe 10 Ml IV 10 ml BID MARCIO Administration Sodium Chloride 10 ml 03/24/19 14:37 Sodium Chloride Flush Syringe 10 Ml IV PRN PRN LINE FLUSH Trazodone HCl 50 mg 03/24/19 22:00 03/24/19 22:02 Desyrel PO 50 mg QHS MARCIO Administration
[2019-03-25 18:33] LABS: Bilirubin,Urine NEG (Negative); Blood,Urine NEG (Negative); Color,Urine Straw (Yellow); Hyaline Casts,Urine 1 /LPF; Mucus,Urine FEW /HPF; Protein,Urine <15 mg/dL mg/dL (Negative); Urobilinogen,Urine < 2.0 mg/dL (<2.0)
[2019-03-25 18:39] LABS: Amphetamine Screen,Urine PRESUMPTIVE NEGATIVE; Benzodiazepines Screen,Urine PRESUMPTIVE NEGATIVE; Cannabinoid Screen,Urine PRESUMPTIVE NEGATIVE; Cocaine Screen,Urine PRESUMPTIVE NEGATIVE; Methadone Screen,Urine PRESUMPTIVE NEGATIVE; Opiate Screen,Urine PRESUMPTIVE NEGATIVE
[2019-03-25] MEDS: MORPHINE 2 MG/1 ML INJ IV PRN (20:27)
[2019-03-25] MEDS: traZODone 50 MG TAB PO SCH (23:00)
[2019-03-26 04:53] LABS: Hematocrit 33.8 % (30.3-42.9); Hemoglobin 11.1 gm/dl (10.1-14.3); Mean Corpuscular HGB Conc 33 % (30-34); Mean Corpuscular Volume 88 fl (79-97); Platelet Count 285 K/mm3 (140-440); Red Blood Count 3.86 M/mm3 (3.65-5.03); Red Cell Distribution Width 17.4 % (13.2-15.2)
[2019-03-26 05:02] LABS: Calcium 7.9 mg/dL (8.4-10.2)
[2019-03-26] MEDS: SODIUM CHLORIDE 0.9% 1000 ML 1,000 ML IV SCH ×2 (06:06→22:46)
[2019-03-26] MEDS: FLUTICASONE PROPIONATE NASAL SPRAY 16 GM NS SCH (09:51)
[2019-03-26] MEDS: CARVEDILOL 6.25 MG TAB PO SCH ×2 (09:51→21:45)
[2019-03-26] MEDS: amLODIPine 10 MG TAB PO SCH (09:51)
[2019-03-26] MEDS: ASPIRIN EC 325 MG TAB PO SCH (09:51)
[2019-03-26] MEDS: HEPARIN 5,000 UNIT/1 ML VIAL SUB-Q SCH ×2 (09:51→21:45)
[2019-03-26] MEDS: PANTOPRAZOLE 40 MG TAB PO SCH (09:53)
[2019-03-26] MEDS: MORPHINE 2 MG/1 ML INJ IV PRN (09:59)
--- NOTE | 2019-03-26 13:35 | Consultation ---
History of Present Illness Consult date: 03/26/19 Consult reason: chest pain History of present illness: 64-year-old woman with a history of chronic tobacco abuse who presents with p ersistent symptoms of upper respiratory tract infection, cough and shortness of breath. In addition, there was a poorly characterized chest pain located below her left breast and radiating to the left axilla. Cardiology consultation was requested for chest pain evaluation. The patient has a history of paroxysmal atrial fibrillation. She lived in [facility] until she relocated to the [facility] just recently. 2 months ago while in [place], she underwent atrial fibrillation ablation. Prior to the ablation, she had a negative pharmacologic stress test. She was treated with oral anticoagulation Eliquis, for a short period after the ablation and it was stopped by her doctors prior to her relocation to this area. Currently there are no complaints of palpitations or dizziness. EKG here was in normal sinus rhythm, leftward axis, otherwise normal ECG. There has been no recurrent atrial fibrillation on telemetry monitoring. Chest x-ray reveals normal cardiac silhouette, clear lungs. Echocardiogram done today, shows normal left ventricular systolic function, ejection fraction 60%, mild to moderate concentric left ventricular hypertrophy. We also found mild dilatation of the left atrium, and mild calcific aortic stenosis. Past History Past Medical History: atrial fib, COPD, hypertension, hyperlipidemia, renal failure (chronic kidney disease), other (Schizophrenia,bipolar) Past Surgical History: hysterectomy, tonsillectomy, Other (atrial fibrillation ablation) Social history: , smoking, alcohol abuse, full code Family history: CAD, cancer, diabetes, hypertension Medications and Allergies Allergies Allergy/AdvReac Type Severity Reaction Status Date / Time codeine Allergy Rash Verified 07/11/13 09:12 Sulfa (Sulfonamide Allergy Rash Verified 07/11/13 09:12 Antibiotics) Home Medications Medication Instructions Recorded Confirmed Last Taken Type Lisinopril [Zestril] 20 mg PO QDAY 07/11/13 03/10/19 04/06/14 History hydroCHLOROthiazide [Hctz] 20 mg PO QDAY 07/11/13 03/10/19 04/06/14 History traZODone [Desyrel] 50 mg PO QHS 08/09/13 03/10/19 04/05/14 History ARIPiprazole [Abilify TAB] 10 mg PO DAILY 03/23/14 03/10/19 04/06/14 History Carvedilol [Coreg] 6.25 mg PO DAILY 04/06/14 03/10/19 04/06/14 History Oxybutynin [Ditropan] 5 mg PO DAILY 04/06/14 03/10/19 04/06/14 History Naproxen [Naprosyn TAB] 500 mg PO BID PRN #30 tablet 04/07/14 03/10/19 Unknown Rx Allopurinol [Zyloprim] 100 mg PO QDAY 03/10/19 03/10/19 03/10/19 History Amiodarone HCl [Amiodarone 100 MG 200 mg PO BID 03/10/19 03/10/19 03/10/19 History TAB] Budesonide/Formoterol Fumarate 10.2 gm IH Q4H 03/10/19 03/10/19 03/10/19 History [Symbicort 160-4.5 Mcg Inhaler] Chlorpheniramine/Dextromethorp 1 each PO Q6HR 03/10/19 03/10/19 03/10/19 History [Cough-Cold Tablet] Citalopram [celeXA] 10 mg PO QDAY 03/10/19 03/10/19 03/10/19 History Pantoprazole [Protonix] 40 mg PO QDAY 03/10/19 03/10/19 03/10/19 History amLODIPine [Norvasc] 10 mg PO DAILY 03/10/19 03/10/19 03/10/19 History Active Meds: Active Medications Acetaminophen (Tylenol) 650 mg PO Q4H PRN PRN Reason: Pain MILD(1-3)/Fever >100.5/CARROLL Last Admin: 03/24/19 23:55 Dose: 650 mg Documented by: Amlodipine Besylate (Amlodipine) 10 mg PO QDAY [facility] Last Admin: 03/26/19 09:51 Dose: 10 mg Documented by: Aspirin (Ecotrin) 325 mg PO QDAY [facility] Last Admin: 03/26/19 09:51 Dose: 325 mg Documented by: Carvedilol (Coreg) 6.25 mg PO BID [facility] Last Admin: 03/26/19 09:51 Dose: 6.25 mg Documented by: Fluticasone Propionate (Flonase) 100 mcg NS QDAY [facility] Last Admin: 03/26/19 09:51 Dose: 100 mcg Documented by: Heparin Sodium (Porcine) (Heparin) 5,000 unit SUB-Q Q12HR [facility] Last Admin: 03/26/19 09:51 Dose: 5,000 unit Documented by: Sodium Chloride (Nacl 0.9% 1000 Ml) 1,000 mls @ 75 mls/hr IV DIRECT [facility] Last Admin: 03/26/19 06:06 Dose: 75 mls/hr Documented by: Lorazepam (Ativan) 0.5 mg IV Q8HR PRN PRN Reason: Anxiety Last Admin: 03/24/19 20:50 Dose: 0.5 mg Documented by: Morphine Sulfate (Morphine) 2 mg IV Q4H PRN PRN Reason: Pain, Moderate (4-6) Last Admin: 03/26/19 09:59 Dose: 2 mg Documented by: Nitroglycerin (Nitrostat) 0.4 mg SL Q5M PRN PRN Reason: Chest Pain Ondansetron HCl (Zofran) 4 mg IV Q8H PRN PRN Reason: Nausea And Vomiting Pantoprazole Sodium (Protonix) 40 mg PO QDAY [facility] Last Admin: 03/26/19 09:53 Dose: 40 mg Documented by: Sodium Chloride (Sodium Chloride Flush Syringe 10 Ml) 10 ml IV BID [facility] Last Admin: 03/26/19 09:52 Dose: 10 ml Documented by: Sodium Chloride (Sodium Chloride Flush Syringe 10 Ml) 10 ml IV PRN PRN PRN Reason: LINE FLUSH Trazodone HCl (Desyrel) 50 mg PO QHS [facility] Last Admin: 03/25/19 23:00 Dose: 50 mg Documented by: Review of Systems Cardiovascular: chest pain, shortness of breath, no orthopnea, no palpitations, no rapid/irregular heart beat, no edema, no syncope, no lightheadedness Physical Examination Vital Signs Temp Pulse Resp BP Pulse Ox 97.7 F 62 22 140/57 98 03/24/19 06:14 03/24/19 06:14 03/24/19 06:14 03/24/19 06:14 03/24/19 06:14 General appearance: no acute distress HEENT: Positive: PERRL Neck: Positive: neck supple Cardiac: Positive: Reg Rate and Rhythm Lungs: Positive: Decreased Breath Sounds Neuro: Positive: Grossly Intact Abdomen: Positive: Soft Female genitourinary: deferred Skin: Positive: Clear Extremities: Absent: edema Results 03/26/19 04:09 03/26/19 04:09 CBC 03/26/19 Range/Units 04:09 WBC 4.7 (4.5-11.0) K/mm3 RBC 3.86 (3.65-5.03) M/mm3 Hgb 11.1 (10.1-14.3) gm/dl Hct 33.8 (30.3-42.9) % Plt Count 285 (140-440) K/mm3 Comprehensive Metabolic Panel 03/26/19 Range/Units 04:09 Sodium 137 (137-145) mmol/L Potassium 4.1 (3.6-5.0) mmol/L Chloride 105.6 (98-107) mmol/L Carbon Dioxide 24 (22-30) mmol/L BUN 17 (7-17) mg/dL Creatinine 1.6 H (0.7-1.2) mg/dL Glucose 126 H (65-100) mg/dL Calcium 7.9 L (8.4-10.2) mg/dL EKG interpretations - Telemetry EKG Rhythm: Sinus Rhythm Assessment and Plan - Patient Problems (1) Atypical chest pain Current Visit: Yes Status: Acute Plan to address problem: Patient's chest pain is atypical, appears musculoskeletal. She had a negative thallium stress test just 2 months ago while in [facility]. No further cardiac ischemic workup is indicated. We will defer to internal medicine and pulmonology for further evaluation and management of her upper respiratory tract infection. I have strongly recommended to patient that she should stop sm oking. (2) Paroxysmal atrial fibrillation Current Visit: Yes Status: Acute Plan to address problem: Patient has had successful ablation 2 months ago, and completed the recommended course of oral anticoagulation. No further atrial fibrillation has been demonstrated on this presentation, we will continue to manage conservatively. (3) Aortic stenosis Current Visit: Yes Status: Acute Plan to address problem: Mild asymptomatic calcific aortic stenosis is recommended for conservative management and serial outpatient follow-up with echocardiography.
--- NOTE | 2019-03-26 17:18 | Progress Note ---
Assessment and Plan Chest pain and shortness of breath Placed on Observation serial Troponins neg stress test not done because she did V/Q scan and needs 24 hrs. Urine drug screen negative Consult cardiology Hypertension Controlled on oral antihypertensives Hyperlipidemia On statins chronic CHF Details unclear Echo of 03/26/2019 shows preserved ejection fraction of 60% Acute on Chronic kidney disease secondary to acute to the necrosis Cr 1.9 on admission Schizophrenia stable Fever 100.9 03/25/2019 UA unremarkable, blood cultures X 2 -no growth so far may start empiric Antibiotics if any more fever Full code status DVT prophylaxis with Lovenox and GI with Pepcid discussion and disposition: Patient is lesions in [facility]. Case management to arrange discharge planning. Subjective Date of service: 03/26/19 Principal diagnosis: chest pain, shortness of breath, KARI, Interval history: Patient seen and examined. Chest pain has resolved. Still having shortness of breath. No abdominal pain nausea vomiting. Complains of left hip pain related to the buttock. Objective - Exam Narrative Exam: Constitutional: Well-nourished well-developed. In no distress Head: Normocephalic atraumatic Eyes: Pupils are equal round and reactive to light Nose: No enlarged turbinates, no septal deviation. Mouth: Moist mucous membranes. Neck: Supple no thyromegaly. No bruit. No JVD Heart: Regular rate and rhythm, S1-S2 normal. No rubs murmurs or gallop Lungs: Clear to auscultation bilaterally. no rales or rhonchi Abdomen: Soft, nontender. Bowel sound are present. Extremities: No edema, no cyanosis, no clubbing. Neuro: Alert oriented Oriented x3. No focal sensory or motor deficit. Skin: No rashes or hyperpigmented spots Musculoskeletal system: No joint pain or swelling Hematological: No petechia or subcutanous hemorrhages. Immunological: No multiple septic spots on the skin Lymphatic: No generalized lymphadenopathy Psychiatry: Euthymic. Calm. - Constitutional Vitals: Vital Signs - 12hr 03/26/19 03/26/19 03/26/19 09:51 09:52 11:26 Temperature 99.5 F Pulse Rate 63 66 Respiratory 18 Rate Blood Pressure 143/62 143/62 139/56 O2 Sat by Pulse 96 Oximetry 03/26/19 16:10 Temperature Pulse Rate 66 Respiratory Rate Blood Pressure O2 Sat by Pulse 98 Oximetry - Labs CBC & Chem 7: 03/26/19 04:09 03/26/19 04:09 Labs: Abnormal lab results 03/26/19 03/26/19 Range/Units 04:09 04:09 RDW 17.4 H (13.2-15.2) % Creatinine 1.6 H (0.7-1.2) mg/dL Glucose 126 H (65-100) mg/dL Calcium 7.9 L (8.4-10.2) mg/dL
[2019-03-26] MEDS ORDERED: ALBUTEROL 2.5 MG/3 ML NEBU IH PRN (21:05)
[2019-03-26] MEDS: traZODone 50 MG TAB PO SCH (21:45)
[2019-03-26] MEDS ORDERED: ALBUTEROL 2.5 MG/3 ML NEBU IH SCH (22:30)
[2019-03-27] MEDS: MORPHINE 2 MG/1 ML INJ IV PRN (04:17)
[2019-03-27 04:57] LABS: Alanine Aminotransferase 10 units/L (7-56); Albumin 3.2 g/dL (3.9-5); BUN/Creatinine Ratio 9; Blood Urea Nitrogen 17 mg/dL (7-17); Calcium 8.3 mg/dL (8.4-10.2); Hemolysis Index 0
--- NOTE | 2019-03-27 10:18 | Progress Note ---
Assessment and Plan Upper respiratory tract infection Depression Tobacco abuse Atypical chest pain normal MPI while living in [place] 2 months ago per pt. Hx of paroxysmal atrial fibrillation s/p ablation 2 months ago per pt while living in [place]. no longer on oral anticoagulation. An echocardiogram shows normal LVEF, EF 60%. There was also mild dilatation of the left atrium, and mild calcific aortic stenosis. Conservative cardiac management. Subjective Date of service: 03/27/19 Principal diagnosis: chest pain, shortness of breath, KARI, Interval history: Patient is resting in bed comfortably. Complains of congestion and left hip pain. Stable sinus rhythm on telemetry. Objective Vital Signs Temp Pulse Pulse Resp Resp BP Pulse Ox 03/27/19 04:19 99.0 F 65 19 117/44 95 03/26/19 22:25 110 H 19 03/26/19 22:14 99 03/26/19 21:45 98.3 F 69 28 H 146/54 94 03/26/19 16:10 66 98 03/26/19 11:26 99.5 F 66 18 139/56 96 - Physical Examination General: No Apparent Distress HEENT: Positive: PERRL Neck: Positive: trachea midline Cardiac: Positive: Reg Rate and Rhythm Lungs: Positive: Decreased Breath Sounds Neuro: Positive: Grossly Intact Extremities: Absent: edema - Labs and Meds Cardiac Enzymes 03/27/19 Range/Units 04:08 AST 14 (5-40) units/L Comprehensive Metabolic Panel 03/27/19 Range/Units 04:08 Sodium 139 (137-145) mmol/L Potassium 4.4 (3.6-5.0) mmol/L Chloride 104.3 (98-107) mmol/L Carbon Dioxide 23 (22-30) mmol/L BUN 17 (7-17) mg/dL Creatinine 2.0 H (0.7-1.2) mg/dL Glucose 101 H (65-100) mg/dL Calcium 8.3 L (8.4-10.2) mg/dL AST 14 (5-40) units/L ALT 10 (7-56) units/L Alkaline Phosphatase 69 (35-129) units/L Total Protein 6.3 (6.3-8.2) g/dL Albumin 3.2 L (3.9-5) g/dL
[2019-03-27] MEDS ORDERED: NON-FORMULARY EACH (Atorvastatin 80 MG) PO SCH (11:15)
[2019-03-27] MEDS ORDERED: LASIX 40 MG PO SCH (11:15)
[2019-03-27] MEDS ORDERED: DEPAKOTE 250 MG PO SCH (11:15)
[2019-03-27] MEDS ORDERED: LOPRESSOR 50 MG PO SCH (11:15)
[2019-03-27] MEDS ORDERED: NON-FORMULARY EACH (Budesonide/Formoterol Fumarate [Symbicort 160-4.5 Mcg Inhaler] 10.2 GM IH SCH (11:15)
[2019-03-27] MEDS ORDERED: SUCRALFATE PO SCH (11:15)
--- NOTE | 2019-03-27 11:18 | Progress Note ---
Assessment and Plan Chest pain and shortness of breath serial Troponins neg stress test not done. Had recent cardiac negative stress test 2 months ago in [place] also had VQ scan and cannot have immediate dye test Urine drug screen negative Consult cardiology Hypertension Controlled on oral antihypertensives Hyperlipidemia On statins Chronic CHF Details unclear Echo of 03/26/2019 shows preserved ejection fraction of 60% Acute on Chronic kidney disease secondary to acute to the necrosis Cr 1.9 on admission Nephrology Schizophrenia For psych eval stable Topbacco use d/o couselling on tobacco cessation was done Pain left hip For xray left hip Fever 100.9 03/25/2019 UA unremarkable, blood cultures X 2 -no growth so far may start empiric Antibiotics if any more fever Full code status DVT prophylaxis with Lovenox and GI with Pepcid Discussion and disposition: Psych eval before she can be allowed back to the hotel where she lives per pt. Case management to arrange discharge planning. Subjective Date of service: 03/27/19 Principal diagnosis: chest pain, shortness of breath, KARI, Interval history: Patient seen and examined. Chest pain has resolved. Still having shortness of breath. No abdominal pain nausea vomiting. Complains of left hip pain radiating to the buttock. Objective - Exam Narrative Exam: Constitutional: Well-nourished well-developed. In no distress Head: Normocephalic atraumatic Eyes: Pupils are equal round and reactive to light Nose: No enlarged turbinates, no septal deviation. Mouth: Moist mucous membranes. Neck: Supple no thyromegaly. No bruit. No JVD Heart: Regular rate and rhythm, S1-S2 normal. No rubs murmurs or gallop Lungs: Clear to auscultation bilaterally. no rales or rhonchi Abdomen: Soft, nontender. Bowel sound are present. Extremities: No edema, no cyanosis, no clubbing. Neuro: Alert oriented Oriented x3. No focal sensory or motor deficit. Skin: No rashes or hyperpigmented spots Musculoskeletal system: No joint pain or swelling Hematological: No petechia or subcutanous hemorrhages. Immunological: No multiple septic spots on the skin Lymphatic: No generalized lymphadenopathy Psychiatry: Euthymic. Calm. - Constitutional Vitals: Vital Signs - 12hr 03/27/19 04:19 Temperature 99.0 F Pulse Rate 65 Respiratory 19 Rate Blood Pressure 117/44 O2 Sat by Pulse 95 Oximetry - Labs CBC & Chem 7: 03/26/19 04:09 03/27/19 04:08 Labs: Abnormal lab results 03/27/19 Range/Units 04:08 Creatinine 2.0 H (0.7-1.2) mg/dL Glucose 101 H (65-100) mg/dL Calcium 8.3 L (8.4-10.2) mg/dL Albumin 3.2 L (3.9-5) g/dL
[2019-03-27] MEDS: PANTOPRAZOLE 40 MG TAB PO SCH (11:33)
[2019-03-27] MEDS: amLODIPine 10 MG TAB PO SCH (11:33)
[2019-03-27] MEDS: CARVEDILOL 6.25 MG TAB PO SCH ×2 (11:33→22:12)
[2019-03-27] MEDS: HEPARIN 5,000 UNIT/1 ML VIAL SUB-Q SCH ×2 (11:33→22:13)
[2019-03-27] MEDS: ASPIRIN EC 325 MG TAB PO SCH (11:33)
[2019-03-27] MEDS: FLUTICASONE PROPIONATE NASAL SPRAY 16 GM NS SCH (11:38)
[2019-03-27] MEDS ORDERED: amLODIPine 10 MG TAB PO SCH (12:00)
[2019-03-27] MEDS ORDERED: PANTOPRAZOLE 40 MG TAB PO SCH (12:00)
[2019-03-27] MEDS ORDERED: CARVEDILOL 6.25 MG TAB PO SCH (12:00)
[2019-03-27] MEDS ORDERED: CHLORPHENIRAMINE PO SCH (12:00)
[2019-03-27] MEDS ORDERED: DEXTROMETHORP PO SCH (12:00)
[2019-03-27] MEDS: hydrALAZINE 25 MG TAB PO SCH ×2 (13:55→23:31)
[2019-03-27] MEDS: FUROSEMIDE 40 MG TAB PO SCH (13:57)
[2019-03-27] MEDS: hydroCHLOROthiazide 25 MG TAB PO SCH (13:57)
[2019-03-27] MEDS: LISINOPRIL 40 MG TAB PO SCH (13:57)
--- NOTE | 2019-03-27 13:57 | XRay Report ---
Left hip-2 views INDICATION: left hip pain. COMPARISON: None. IMPRESSION: No acute osseous or soft tissue abnormality. Moderate DJD in both hips. Signer Name: Edward De La Rosa MD Signed: 03/27/2019 1:52 PM Workstation Name: [id number]
[2019-03-27] MEDS: CITALOPRAM 20 MG TAB PO SCH (13:58)
[2019-03-27] MEDS ORDERED: NON-FORMULARY EACH (Hydralazine 25 MG) PO SCH (14:00)
[2019-03-27] MEDS: OXYBUTYNIN 5 MG TAB PO SCH (14:04)
[2019-03-27] MEDS: ARIPiprazole 10 MG TAB PO SCH (14:04)
[2019-03-27] MEDS: SODIUM CHLORIDE 0.9% 1000 ML 1,000 ML IV SCH (14:05)
[2019-03-27] MEDS ORDERED: SUCRALFATE 1 GM TAB PO SCH (17:00)
[2019-03-27] MEDS: DIVALPROEX ER 250 MG TAB PO SCH ×2 (19:19→22:09)
[2019-03-27] MEDS: BUDESONIDE 0.5 MG/2 ML NEBU IH SCH (20:30)
[2019-03-27] MEDS: ARFORMOTEROL 15 MCG/2 ML NEBU IH SCH (20:30)
[2019-03-27] MEDS ORDERED: traZODone 50 MG TAB PO SCH (22:00)
[2019-03-27] MEDS: traZODone 50 MG TAB PO SCH (22:12)
[2019-03-27] MEDS: ACETAMINOPHEN 325 MG TAB PO PRN (22:21)
[2019-03-28] MEDS: SODIUM CHLORIDE 0.9% 1000 ML 1,000 ML IV SCH (02:30)
[2019-03-28] MEDS: ARFORMOTEROL 15 MCG/2 ML NEBU IH SCH (07:46)
[2019-03-28] MEDS: BUDESONIDE 0.5 MG/2 ML NEBU IH SCH (07:46)
[2019-03-28] MEDS: ACETAMINOPHEN 325 MG TAB PO PRN (08:06)
[2019-03-28] MEDS: hydrALAZINE 25 MG TAB PO SCH (08:07)
--- NOTE | 2019-03-28 08:32 | Discharge Summary ---
Providers - Providers Date of Admission: 03/24/19 10:18 Attending physician: CAORL GARIBAY MD 03/24/19 Consult to Cardiac Rehabilitation [CONS] Routine Reason For Exam: Phase I 03/27/19 11:08 Consult to Mental Health [CONS] Urgent Reason For Exam: schizophremnia and bipolar d/o Place consult to:: psych Notified:: no Hospitalization Condition: Stable Hospital course: 64-year-old woman who presents to the hospital with left-sided chest pain. She was diagnosed with upper respiratory tract infection, she received supportive care and improved. Tobacco abuse/dependence Smoking cessation counseling performed for 10 minutes, nicotine patches when necessary History of proximal atrial fibrillation status post ablation 2 months prior. No longer on anticoagulation. Cardiology input appreciated, no active cardiac issues, no further work-up indicated. Patient was reassured, she is advised to take [id number] supportive medications for upper respiratory tract infection. She improved and was discharged -Bilateral hip x-ray showed moderate DJD -Creatinine was stable at her baseline throughout her admission. Diagnosis Chest pain due to upper respiratory tract infection Tobacco abuse/dependence Hypertension Schizophrenia Moderate DJD of both hips Chronic kidney disease stage III Disposition: DC-01 TO HOME OR SELFCARE Time spent for discharge: 33 mins Core Measure Documentation - Palliative Care Palliative Care/ Comfort Measures: Not Applicable - Core Measures Any of the following diagnoses?: none Exam - Constitutional Vitals: Temp Pulse Resp BP Pulse Ox 98.1 F 70 18 148/63 96 03/28/19 05:17 03/28/19 08:07 03/28/19 07:48 03/28/19 08:07 03/28/19 05:17 General appearance: Present: no acute distress, well-nourished - EENT Eyes: Present: PERRL ENT: hearing intact, clear oral mucosa - Neck Neck: Present: supple, normal ROM - Respiratory Respiratory effort: normal Respiratory: bilateral: CTA - Cardiovascular Heart Sounds: Present: S1 & S2. Absent: rub, click - Extremities Extremities: pulses symmetrical, No edema Peripheral Pulses: within normal limits - Abdominal General gastrointestinal: Present: soft, non-tender, non-distended, normal bowel sounds Female genitourinary: Present: normal - Integumentary Integumentary: Present: clear, warm, dry - Musculoskeletal Musculoskeletal: gait normal, strength equal bilaterally - Psychiatric Psychiatric: appropriate mood/affect, intact judgment & insight - Neurologic Neurologic: CNII-XII intact, moves all extremities Plan Follow up with: EAN VELA MD [Other] - 3-5 Days CATRACHITO DAVENPORT MD [Staff Physician] - 7 Days KRISTIN VALVERDE MD [Staff Physician] - 7 Days GIBRAN PEACOCK DPM [Staff Physician] - 7 Days Prescriptions: Aspirin EC 325 mg PO QDAY #30 tablet Fluticasone [Flonase] 100 mcg NS QDAY #1 bottle
[2019-03-28] MEDS: ASPIRIN EC 325 MG TAB PO SCH (11:36)
[2019-03-28] MEDS: FUROSEMIDE 40 MG TAB PO SCH (11:36)
[2019-03-28] MEDS: PANTOPRAZOLE 40 MG TAB PO SCH (11:37)
[2019-03-28] MEDS: CITALOPRAM 20 MG TAB PO SCH (11:39)
[2019-03-28] MEDS: LISINOPRIL 40 MG TAB PO SCH ×2 (11:40→12:03)
[2019-03-28] MEDS: hydroCHLOROthiazide 25 MG TAB PO SCH (11:45)
[2019-03-28] MEDS: amLODIPine 10 MG TAB PO SCH (11:46)
[2019-03-28] MEDS: CARVEDILOL 6.25 MG TAB PO SCH (11:47)
[2019-03-28] MEDS: OXYBUTYNIN 5 MG TAB PO SCH (11:50)
[2019-03-28] MEDS: HEPARIN 5,000 UNIT/1 ML VIAL SUB-Q SCH (11:51)
[2019-03-28] MEDS: FLUTICASONE PROPIONATE NASAL SPRAY 16 GM NS SCH (11:52)
[2019-03-28] MEDS: DIVALPROEX ER 250 MG TAB PO SCH (11:52)
[2019-03-28 11:56] VITALS: BP 155/60
[2019-03-28] MEDS: ARIPiprazole 10 MG TAB PO SCH (12:04)
--- NOTE | 2019-03-28 14:01 | Consultation ---
History of Present Illness - Reason for Consult Consult date: 03/28/19 Reason for consult: Mental Health Evaluation Requesting physician: KRISTI MCCOY - Chief Complaint Chief complaint: "I feel much better" - History of Present Psychiatric Illness 64 y.o. AA female who presented to the ER for chest pain from [facility]. Per the patient, she needed a psy assessment so she can return to [facility]. Today the patient was calm and cooperative during the assessment. She stated that she was a patient at [facility] for "suicidal thoughts" before going to [facility]. She stated that she feel much better and want to return to [facility]) to complete her treatment. She denies SI/HI's and AVH's. She denies erratic sleep and poor appetite. She denies recreational drug use and alcohol consumption (etoh). Medications and Allergies Allergies Allergy/AdvReac Type Severity Reaction Status Date / Time codeine Allergy Rash Verified 07/11/13 09:12 Sulfa (Sulfonamide Allergy Rash Verified 07/11/13 09:12 Antibiotics) Home Medications Medication Instructions Recorded Confirmed Last Taken Type Lisinopril [Zestril] 20 mg PO QDAY 07/11/13 03/10/19 04/06/14 History hydroCHLOROthiazide [HCTZ] 20 mg PO QDAY 07/11/13 03/10/19 04/06/14 History traZODone [Desyrel] 50 mg PO QHS 08/09/13 03/10/19 04/05/14 History ARIPiprazole [Abilify TAB] 10 mg PO DAILY 03/23/14 03/10/19 04/06/14 History Carvedilol [Coreg] 6.25 mg PO DAILY 04/06/14 03/10/19 04/06/14 History Oxybutynin [Ditropan] 5 mg PO DAILY 04/06/14 03/10/19 04/06/14 History Naproxen [Naprosyn TAB] 500 mg PO BID PRN #30 tablet 04/07/14 03/10/19 Unknown Rx Allopurinol [Zyloprim] 100 mg PO QDAY 03/10/19 03/10/19 03/10/19 History Budesonide/Formoterol Fumarate 10.2 gm IH Q4H 03/10/19 03/10/19 03/10/19 History [Symbicort 160-4.5 Mcg Inhaler] Chlorpheniramine/Dextromethorp 1 each PO Q6HR 03/10/19 03/10/19 03/10/19 History [Cough-Cold Tablet] Citalopram [Celexa] 10 mg PO QDAY 03/10/19 03/10/19 03/10/19 History Pantoprazole [Protonix TAB] 40 mg PO QDAY 03/10/19 03/10/19 03/10/19 History amLODIPine 10 mg PO DAILY 03/10/19 03/10/19 03/10/19 History Atorvastatin 80 mg PO DAILY 03/27/19 03/27/19 Unknown History Depakote ER 250 mg PO BID 03/27/19 03/27/19 Unknown History Lasix TAB 40 mg PO DAILY 03/27/19 03/27/19 Unknown History hydrALAZINE 25 mg PO TID 03/27/19 03/27/19 Unknown History methOCARBAMOL 500 mg PO Q6HR PRN 03/27/19 03/27/19 Unknown History Aspirin EC 325 mg PO QDAY #30 tablet 03/28/19 Unknown Rx Fluticasone [Flonase] 100 mcg NS QDAY #1 bottle 03/28/19 Unknown Rx Active Meds: Active Medications Acetaminophen (Tylenol) 650 mg PO Q4H PRN PRN Reason: Pain MILD(1-3)/Fever >100.5/CARROLL Last Admin: 03/28/19 08:06 Dose: 650 mg Documented by: Albuterol (Proventil) 2.5 mg IH Q4HRT PRN PRN Reason: Shortness Of Breath Last Admin: 03/26/19 22:25 Dose: 2.5 mg Documented by: Amlodipine Besylate (Amlodipine) 10 mg PO QDAY [facility] Last Admin: 03/28/19 11:46 Dose: 10 mg Documented by: Arformoterol Tartrate (Brovana Nebu) 15 mcg IH Q12HRT [facility] Last Admin: 03/28/19 07:46 Dose: 15 mcg Documented by: Aripiprazole (Aripiprazole) 10 mg PO DAILY [facility] Last Admin: 03/28/19 12:04 Dose: 10 mg Documented by: Aspirin (Ecotrin) 325 mg PO QDAY [facility] Last Admin: 03/28/19 11:36 Dose: 325 mg Documented by: Atorvastatin Calcium (Lipitor) 80 mg PO QHS [facility] Last Admin: 03/27/19 22:10 Dose: 80 mg Documented by: Budesonide (Pulmicort) 0.5 mg IH Q12HRT [facility] Last Admin: 03/28/19 07:46 Dose: 0.5 mg Documented by: Carvedilol (Coreg) 6.25 mg PO BID [facility] Last Admin: 03/28/19 11:47 Dose: 6.25 mg Documented by: Citalopram Hydrobromide (Celexa) 10 mg PO QDAY [facility] Last Admin: 03/28/19 11:39 Dose: 10 mg Documented by: Divalproex Sodium (Depakote Er) 250 mg PO BID [facility] Last Admin: 03/28/19 11:52 Dose: 250 mg Documented by: Fluticasone Propionate (Flonase) 100 mcg NS QDAY [facility] Last Admin: 03/28/19 11:52 Dose: 100 mcg Documented by: Furosemide (Lasix) 40 mg PO DAILY [facility] Last Admin: 03/28/19 11:36 Dose: 40 mg Documented by: Heparin Sodium (Porcine) (Heparin) 5,000 unit SUB-Q Q12HR [facility] Last Admin: 03/28/19 11:51 Dose: Not Given Documented by: Hydralazine HCl (Apresoline) 25 mg PO TID [facility] Last Admin: 03/28/19 08:07 Dose: 25 mg Documented by: Hydrochlorothiazide (Hctz) 20 mg PO QDAY [facility] Last Admin: 03/28/19 11:45 Dose: 20 mg Documented by: Sodium Chloride (Nacl 0.9% 1000 Ml) 1,000 mls @ 75 mls/hr IV DIRECT [facility] Last Admin: 03/28/19 02:30 Dose: 75 mls/hr Documented by: Lisinopril (Zestril) 20 mg PO QDAY [facility] Last Admin: 03/28/19 12:03 Dose: Not Given Documented by: Lorazepam (Ativan) 0.5 mg IV Q8HR PRN PRN Reason: Anxiety Last Admin: 03/24/19 20:50 Dose: 0.5 mg Documented by: Morphine Sulfate (Morphine) 2 mg IV Q4H PRN PRN Reason: Pain, Moderate (4-6) Last Admin: 03/27/19 04:17 Dose: 2 mg Documented by: Nitroglycerin (Nitrostat) 0.4 mg SL Q5M PRN PRN Reason: Chest Pain Ondansetron HCl (Zofran) 4 mg IV Q8H PRN PRN Reason: Nausea And Vomiting Oxybutynin Chloride (Ditropan) 5 mg PO DAILY [facility] Last Admin: 03/28/19 11:50 Dose: Not Given Documented by: Pantoprazole Sodium (Protonix) 40 mg PO QDAY [facility] Last Admin: 03/28/19 11:37 Dose: 40 mg Documented by: Sodium Chloride (Sodium Chloride Flush Syringe 10 Ml) 10 ml IV BID [facility] Last Admin: 03/28/19 12:04 Dose: 10 ml Documented by: Sodium Chloride (Sodium Chloride Flush Syringe 10 Ml) 10 ml IV PRN PRN PRN Reason: LINE FLUSH Sucralfate (Carafate) 1 gm PO DAILY@1700 [facility] Last Admin: 03/27/19 19:22 Dose: 1 gm Documented by: Trazodone HCl (Desyrel) 50 mg PO QHS [facility] Last Admin: 03/27/19 22:12 Dose: 50 mg Documented by: Past psychiatric history - Past Medical History Past Medical History: GERD, hypertension Past Surgical History: No surgical history - past Psychiatric treatment and history psychiatric treatment history: 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 Denies a fam psy hx. - Social History Social history: lives with family Mental Status Exam - Vital signs Last Vital Signs Temp 98.1 F 03/28/19 05:17 Pulse 69 03/28/19 11:47 Resp 18 03/28/19 07:48 BP 155/60 03/28/19 11:47 Pulse Ox 96 03/28/19 05:17 - Exam Narrative exam: MSE: Appearance: calm, cooperative Behavior: regular eye contact Speech: regular rate and tone Mood: "okay" Affect: congruent to mood Thought Process: linear Thought Content: denies SI/HI's and AVH's Motor Activity: lying in bed Cognition: A/O x 3 Insight: fair Judgment: fair Results Result Diagrams: 03/26/19 04:09 03/27/19 04:08 All other labs normal. Assessment and Plan Assessment and plan: Impression: Hx of Mood DO. Today the patient was calm and cooperative during the assessment. Recommendation/Plan: Continue Abilify 10 mg PO daily for mood and Depakote 250 mg PO BID for mood. Discussed possible metabolic side effects from Abilify with the patient, she verbalized understanding. Dipso: The patient plan to return to [facility] (voluntary) once discharged. Staffed with Dr Laurie Ross.
== END 2019-03-28 15:20 | disposition home or self-care (01) | DRG 153 ==
LOC: ED 06:11 → 3A 10:18 → OBSVTOIN 10:18
PROVIDERS: ADMIT Internal Medicine; ATTEND Internal Medicine
DX: J06.9 Acute upper respiratory infection, unspecified (principal); I13.0 Hypertensive heart and chronic kidney disease with heart failure and stage 1 through stage 4 chronic kidney disease, or unspecified chronic kidney disease; I50.32 Chronic diastolic (congestive) heart failure; N17.9 Acute kidney failure, unspecified; R07.89 Other chest pain; I48.0 Paroxysmal atrial fibrillation; I35.0 Nonrheumatic aortic (valve) stenosis; K21.9 Gastro-esophageal reflux disease without esophagitis; F17.200 Nicotine dependence, unspecified, uncomplicated; F20.9 Schizophrenia, unspecified; M16.0 Bilateral primary osteoarthritis of hip; N18.3 Chronic kidney disease, stage 3 (moderate); E78.5 Hyperlipidemia, unspecified; J44.9 Chronic obstructive pulmonary disease, unspecified; M19.90 Unspecified osteoarthritis, unspecified site; F32.9 Major depressive disorder, single episode, unspecified; Z90.710 Acquired absence of both cervix and uterus; Z82.49 Family history of ischemic heart disease and other diseases of the circulatory system; Z88.5 Allergy status to narcotic agent; Z88.2 Allergy status to sulfonamides; Z79.899 Other long term (current) drug therapy; Z79.82 Long term (current) use of aspirin; Z71.6 Tobacco abuse counseling; Z80.9 Family history of malignant neoplasm, unspecified; Z83.3 Family history of diabetes mellitus
CPT/HCPCS: 36415; 71045; 78582; 80048; 80053; 80307; 81001; 82550; 82553; 84484; 85025; 85027; 85379; 87040; 87086; 87116; 93005; 93010; 93306; 93970; 94640; 96374; 99406; G0378; A9270-GY; A9540; A9558; J1644; J2060; J2270; J7030

== ENCOUNTER 2019-04-05 17:29 | Observation (INO) | payer MEDICARE ==
[2019-04-05] MEDS ORDERED: ASPIRIN 325 MG TAB PO ONE (18:01)
--- NOTE | 2019-04-05 18:02 | Event Note ---
ED Screening Note Date of service: 04/05/19 Time: 17:57 ED Screening Note: This is a 64 y.o. F. that presents to the ER with chest pain and abdominal pain PMH of CKD, HTN, schizoaffective, COPD, and Atrial fib Reports chest pain as stabbing on left side. She reports abdominal pain is on left side with nausea. This initial assessment/diagnostic orders/clinical plan/treatment(s) is/are subject to change based on patients health status, clinical progression and re- assessment by fellow clinical providers in the ED. Further treatment and workup at subsequent clinical providers discretion. Patient/guardian urged not to elope from the ED as their condition may be serious if not clinically assessed and managed. Initial orders include: Labs, EKG, and CXR
[2019-04-05 18:49] LABS: Basophils # (Auto) 0.1 K/mm3 (0.0-0.1); Basophils % (Auto) 1.1 % (0.0-1.8); Eosinophils # (Auto) 0.1 K/mm3 (0.0-0.4); Eosinophils % (Auto) 1.9 % (0.0-4.3); Hematocrit 35.9 % (30.3-42.9); Hemoglobin 11.7 gm/dl (10.1-14.3); Lymphocytes # (Auto) 3.3 K/mm3 (1.2-5.4); Lymphocytes % (Auto) 44.2 % (13.4-35.0); Mean Corpuscular HGB Conc 33 % (30-34); Mean Corpuscular Volume 88 fl (79-97); Monocytes # (Auto) 0.8 K/mm3 (0.0-0.8); Monocytes % (Auto) 10.7 % (0.0-7.3); Platelet Count 382 K/mm3 (140-440); Red Blood Count 4.09 M/mm3 (3.65-5.03); Red Cell Distribution Width 17.4 % (13.2-15.2)
[2019-04-05 18:53] LABS: INR 0.88 (0.87-1.13)
[2019-04-05 18:55] LABS: Partial Thromboplastin Time 27.2 Sec. (24.2-36.6)
--- NOTE | 2019-04-05 19:03 | Emergency Department Report ---
ED Chest Pain HPI - General Chief Complaint: Abdominal Pain Stated Complaint: CHEST PAIN/ABD PAIN Time Seen by Provider: 04/05/19 18:32 Source: patient Mode of arrival: Wheelchair Limitations: No Limitations - History of Present Illness Initial Comments: Patient is a 64-year-old female that presents emergency room with complaints of chest pain. Patient states his chest pain is left chest and radiates to her left arm. Patient is also complaining of epigastric pain. Patient states her chest pain is a 10 out of 10. Patient states it is better with rest and worse with exertion. Patient states that she is having mild shortness of breath. Patient states her shortness respiratory distress and worse with exertion. Patient states her chest pain started today at 7 AM but was intermittent. States her epigastric pain started at noon today. Patient states it is worse with movement and better with rest. Patient denies nausea vomiting. She states she has a past medical history of CAD, [place], congestive heart failure, COPD, GERD, hypertension, arthritis, CKD, A. fib MD Complaint: chest pain Severity: severe Severity scale (0 -10): 10 - Related Data Home Medications Medication Instructions Recorded Confirmed Last Taken traZODone [Desyrel] 50 mg PO QHS 08/09/13 04/05/19 04/05/14 ARIPiprazole [Abilify TAB] 10 mg PO DAILY 03/23/14 04/05/19 04/06/14 Carvedilol [Coreg] 6.25 mg PO DAILY 04/06/14 04/05/19 04/06/14 Oxybutynin [Ditropan] 5 mg PO DAILY 04/06/14 04/05/19 04/06/14 Allopurinol [Zyloprim] 100 mg PO QDAY 03/10/19 04/05/19 03/10/19 Budesonide/Formoterol Fumarate 10.2 gm IH Q4H 03/10/19 04/05/19 03/10/19 [Symbicort 160-4.5 Mcg Inhaler] Chlorpheniramine/Dextromethorp 1 each PO Q6HR 03/10/19 04/05/19 03/10/19 [Cough-Cold Tablet] Citalopram [Celexa] 10 mg PO QDAY 03/10/19 04/05/19 03/10/19 Pantoprazole [Protonix TAB] 40 mg PO QDAY 03/10/19 04/05/19 03/10/19 Depakote ER 250 mg PO BID 03/27/19 04/05/19 Unknown hydrALAZINE 25 mg PO TID 03/27/19 04/05/19 Unknown methOCARBAMOL 500 mg PO Q6HR PRN 03/27/19 04/05/19 Unknown Previous Rx's Medication Instructions Recorded Last Taken Type Naproxen [Naprosyn TAB] 500 mg PO BID PRN #30 tablet 04/07/14 Unknown Rx Fluticasone [Flonase] 100 mcg NS QDAY #1 bottle 03/28/19 Unknown Rx Allergies Allergy/AdvReac Type Severity Reaction Status Date / Time codeine Allergy Rash Verified 07/11/13 09:12 Sulfa (Sulfonamide Allergy Rash Verified 07/11/13 09:12 Antibiotics) lisinopril AdvReac Unknown Verified 04/05/19 18:48 Heart Score - HEART Score History: Moderately suspicious EKG: Non-specific Age: 45-65 Risk factors: > 3 risk factors or hx of atherosclerotic disease Troponin: < normal limit HEART Score: 5 ED Review of Systems ROS: Stated complaint: CHEST PAIN/ABD PAIN Other details as noted in HPI Constitutional: denies: chills, fever Eyes: denies: eye pain, eye discharge, vision change ENT: denies: ear pain, throat pain Respiratory: shortness of breath, SOB with exertion, SOB at rest. denies: cough, wheezing Cardiovascular: chest pain, palpitations, dyspnea on exertion Endocrine: no symptoms reported Gastrointestinal: abdominal pain. denies: nausea, vomiting, diarrhea Genitourinary: denies: urgency, dysuria, discharge Musculoskeletal: denies: back pain, joint swelling, arthralgia Skin: denies: rash, lesions Neurological: denies: headache, weakness, paresthesias Psychiatric: denies: anxiety, depression Hematological/Lymphatic: denies: easy bleeding, easy bruising ED Past Medical Hx - Past Medical History Previous Medical History?: Yes Hx Hypertension: Yes Hx Heart Attack/AMI: Yes Hx Congestive Heart Failure: Yes Hx GERD: Yes Hx Renal Disease: Yes (ckd) Hx Arthritis: Yes Hx Psychiatric Treatment: Yes (SCHIZO-AFFECTIVE) Hx COPD: Yes Additional medical history: AFIB, bells palsy - Surgical History Past Surgical History?: Yes Hx Cholecystectomy: Yes Additional Surgical History: Cholecystectomy and hysterectomy, rt roary cuff, heart ablation - Family History Family history: no significant - Social History Smoking Status: Never Smoker Substance Use Type: None - Medications Home Medications: Home Medications Medication Instructions Recorded Confirmed Last Taken Type traZODone [Desyrel] 50 mg PO QHS 08/09/13 04/05/19 04/05/14 History ARIPiprazole [Abilify TAB] 10 mg PO DAILY 03/23/14 04/05/19 04/06/14 History Carvedilol [Coreg] 6.25 mg PO DAILY 04/06/14 04/05/19 04/06/14 History Oxybutynin [Ditropan] 5 mg PO DAILY 04/06/14 04/05/19 04/06/14 History Naproxen [Naprosyn TAB] 500 mg PO BID PRN #30 tablet 04/07/14 04/05/19 Unknown Rx Allopurinol [Zyloprim] 100 mg PO QDAY 03/10/19 04/05/19 03/10/19 History Budesonide/Formoterol Fumarate 10.2 gm IH Q4H 03/10/19 04/05/19 03/10/19 History [Symbicort 160-4.5 Mcg Inhaler] Chlorpheniramine/Dextromethorp 1 each PO Q6HR 03/10/19 04/05/19 03/10/19 History [Cough-Cold Tablet] Citalopram [Celexa] 10 mg PO QDAY 03/10/19 04/05/19 03/10/19 History Pantoprazole [Protonix TAB] 40 mg PO QDAY 03/10/19 04/05/19 03/10/19 History Depakote ER 250 mg PO BID 03/27/19 04/05/19 Unknown History hydrALAZINE 25 mg PO TID 03/27/19 04/05/19 Unknown History methOCARBAMOL 500 mg PO Q6HR PRN 03/27/19 04/05/19 Unknown History Fluticasone [Flonase] 100 mcg NS QDAY #1 bottle 03/28/19 04/05/19 Unknown Rx ED Physical Exam - General Limitations: No Limitations General appearance: alert, in no apparent distress - Head Head exam: Present: atraumatic, normocephalic - Eye Eye exam: Present: normal appearance - ENT ENT exam: Present: mucous membranes moist - Neck Neck exam: Present: normal inspection - Respiratory Respiratory exam: Present: normal lung sounds bilaterally. Absent: respiratory distress - Cardiovascular Cardiovascular Exam: Present: regular rate, normal rhythm. Absent: systolic murmur, diastolic murmur, rubs, gallop - GI/Abdominal GI/Abdominal exam: Present: soft, tenderness (epigastric tenderness), normal bowel sounds. Absent: distended, guarding, rebound - Extremities Exam Extremities exam: Present: normal inspection - Back Exam Back exam: Present: normal inspection - Neurological Exam Neurological exam: Present: alert, oriented X3 - Psychiatric Psychiatric exam: Present: normal affect, normal mood - Skin Skin exam: Present: warm, dry, intact, normal color. Absent: rash ED Course Vital Signs 04/05/19 04/05/19 04/05/19 17:58 18:42 19:15 Temperature 98 F 97.7 F 98.3 F Pulse Rate 64 67 70 Respiratory 20 18 21 Rate Blood Pressure 139/52 Blood Pressure 132/57 138/58 [Left] O2 Sat by Pulse 100 100 98 Oximetry 04/05/19 04/05/19 04/05/19 19:30 20:00 20:30 Temperature Pulse Rate 76 75 73 Respiratory 20 18 18 Rate Blood Pressure 122/48 136/53 129/50 Blood Pressure [Left] O2 Sat by Pulse 94 94 92 Oximetry 04/05/19 04/05/19 04/05/19 21:00 21:20 21:30 Temperature Pulse Rate 66 64 64 Respiratory 17 16 15 Rate Blood Pressure 127/56 129/50 130/61 Blood Pressure [Left] O2 Sat by Pulse 95 99 98 Oximetry 04/05/19 04/05/19 04/05/19 21:40 21:50 22:00 Temperature Pulse Rate 68 64 70 Respiratory 14 17 18 Rate Blood Pressure 130/61 130/61 130/61 Blood Pressure [Left] O2 Sat by Pulse 77 L 98 98 Oximetry - Reevaluation(s) Reevaluation #1: I discussed all results with patient. I discussed plan of care with patient. Patient agrees with plan of care and admission. Patient will be admitted to the hospital service. 04/05/19 20:17 - Consultations Consultation #1: Hospitalist consult for admission. Hospitalist admit patient. Bridge orders place. 04/05/19 20:17 MAGALYS score - Magalys Score Age > 65: (0) No Aspirin use within the Past 7 Days: (1) Yes 3 or more CAD Risk Factors: (1) Yes 2 or more Angina events in past 24 hrs: (1) Yes Known CAD with more than 50% Stenosis: (0) No Elevated Cardiac Markers: (0) No ST Deviation Greater than 0.5mm: (0) No MAGALYS Score: 3 ED Medical Decision Making - Lab Data Result diagrams: 04/05/19 18:07 04/05/19 21:38 - EKG Data -: EKG Interpreted by Me EKG shows normal: sinus rhythm, axis, intervals, QRS complexes, ST-T waves Rate: normal - Radiology Data Radiology results: report reviewed, image reviewed interpreted by me: No acute findings on chest x-ray. - Medical Decision Making Patient is a 64-year-old female that presents emergency room with complaints of chest pain, shortness of breath, abdominal pain. Patient abdominal pain consistent with gastritis. Patient admitted to the hospital service to rule out ACS and further evaluation treatment. Patient initial cardiac workup negative. Patient's EKG review. Patient's chest x-ray negative. Patient's labs unremarkable except for chronic renal disease. - Differential Diagnosis acs. cp. sob/ abd pain. gastritis Critical Care Time: Yes Critical care time in (mins) excluding proc time.: 35 Critical care attestation.: If time is entered above; I have spent that time in minutes in the direct care of this critically ill patient, excluding procedure time. Critical Care Time: 35 minutes ED Disposition Clinical Impression: SOB (shortness of breath), Epigastric pain CKD (chronic kidney disease) Qualifiers: Chronic kidney disease stage: unspecified stage Qualified Code(s): N18.9 - Chronic kidney disease, unspecified Chest pain Qualifiers: Chest pain type: unspecified Qualified Code(s): R07.9 - Chest pain, unspecified Gastritis Qualifiers: Gastritis type: unspecified gastritis Chronicity: acute Gastritis bleeding: without bleeding Qualified Code(s): K29.00 - Acute gastritis without bleeding Disposition: OP ADMIT IP TO THIS HOSP Is pt being admited?: Yes Does the pt Need Aspirin: No Condition: Fair Time of Disposition: 20:21
--- NOTE | 2019-04-05 19:07 | XRay Report ---
CHEST 1 VIEW INDICATION: Chest Pain. COMPARISON: 03/24/2019 FINDINGS: Support devices: None. Heart: Within normal limits. Lungs/Pleura: No acute air space or interstitial disease. Additional findings: None. IMPRESSION: 1. No acute findings. Signer Name: Edward De La Rosa MD Signed: 04/05/2019 7:03 PM Workstation Name: [id number]
[2019-04-05 19:09] LABS: Alanine Aminotransferase 9 units/L (7-56); Albumin 3.9 g/dL (3.9-5); BUN/Creatinine Ratio 18; Blood Urea Nitrogen 36 mg/dL (7-17); Calcium 8.9 mg/dL (8.4-10.2); Hemolysis Index 1
[2019-04-05] MEDS ORDERED: MORPHINE 2 MG/1 ML INJ IV ONE (20:56)
[2019-04-05] MEDS ORDERED: MORPHINE 2 MG/1 ML INJ ONE (21:00)
[2019-04-05] MEDS ORDERED: NON-FORMULARY EACH (Budesonide/Formoterol Fumarate [Symbicort 160-4.5 Mcg Inhaler] 10.2 GM IH SCH (21:15)
[2019-04-05] MEDS ORDERED: MORPHINE 2 MG/1 ML INJ IV PRN (21:17)
[2019-04-05] MEDS ORDERED: ONDANSETRON 4 MG/2 ML INJ IV PRN (21:17)
[2019-04-05] MEDS ORDERED: ACETAMINOPHEN 325 MG TAB PO PRN (21:17)
[2019-04-05] MEDS ORDERED: NITROGLYCERIN 0.4 MG TAB SUBL SL PRN (21:27)
[2019-04-05 21:35] LABS: Bilirubin,Urine NEG (Negative); Blood,Urine NEG (Negative); Color,Urine Yellow (Yellow); Protein,Urine <15 mg/dL mg/dL (Negative); Urobilinogen,Urine < 2.0 mg/dL (<2.0); WBC,Urine < 1.0 /HPF (0.0-6.0)
[2019-04-05 21:48] LABS: Amphetamine Screen,Urine PRESUMPTIVE NEGATIVE; Benzodiazepines Screen,Urine PRESUMPTIVE NEGATIVE; Cannabinoid Screen,Urine PRESUMPTIVE NEGATIVE; Cocaine Screen,Urine PRESUMPTIVE NEGATIVE; Methadone Screen,Urine PRESUMPTIVE NEGATIVE; Opiate Screen,Urine PRESUMPTIVE NEGATIVE
[2019-04-05 22:12] LABS: Calcium 8.6 mg/dL (8.4-10.2)
[2019-04-05] MEDS ORDERED: LORazepam 2 MG/ML VIAL IV PRN ×2 (22:50)
--- NOTE | 2019-04-05 22:53 | History and Physical Report ---
History of Present Illness Date of examination: 04/05/19 Date of admission: 04/05/19 20:22 Chief complaint: Chest Pain History of present illness: 63-year-old -T[place] female with history of depression, bipolar, schizophrenia, COPD, hypertension, hyperlipidemia, chronic renal failure who presents to [facility] ED with complaints of left-sided chest pain with radiation to left arm. Since 8 AM this morning, patient has been experiencing intermittent left side chest pain with radiation to left arm. She described her pain as dull and achy. The pain varies in intensity's and at its worst it's 8/10. The pain is aggravated with movement and exertion. She admits to feeling nauseous but denies diaphoresis and shortness of breath. Review of medical records shows the patient was admitted on 03/24/19 with similar complaints of chest pain. At [facility] time echocardiogram was performed which showed normal LVEF of 60%. She states that she had an NV approximately a month ago to on previous admission, but was unable to find documentation to support this when reviewing medical records. Past History Past Medical History: arthritis (chronic), COPD, GERD, other (depression, schizophrenia, bipolar, mild dilation of left atrium, mild aortic stenosis) Past Surgical History: hysterectomy, tonsillectomy, Other (shoulder surgery, [facility] 03/25/19) Social history: , lives with family, smoking, alcohol abuse Family history: CAD, cancer, diabetes, hypertension Medications and Allergies Allergies Allergy/AdvReac Type Severity Reaction Status Date / Time codeine Allergy Rash Verified 07/11/13 09:12 Sulfa (Sulfonamide Allergy Rash Verified 07/11/13 09:12 Antibiotics) lisinopril AdvReac Unknown Verified 04/05/19 18:48 Home Medications Medication Instructions Recorded Confirmed Last Taken Type traZODone [Desyrel] 50 mg PO QHS 08/09/13 04/05/19 04/05/14 History ARIPiprazole [Abilify TAB] 10 mg PO DAILY 03/23/14 04/05/19 04/06/14 History Carvedilol [Coreg] 6.25 mg PO DAILY 04/06/14 04/05/19 04/06/14 History Oxybutynin [Ditropan] 5 mg PO DAILY 04/06/14 04/05/19 04/06/14 History Naproxen [Naprosyn TAB] 500 mg PO BID PRN #30 tablet 04/07/14 04/05/19 Unknown Rx Allopurinol [Zyloprim] 100 mg PO QDAY 03/10/19 04/05/19 03/10/19 History Budesonide/Formoterol Fumarate 10.2 gm IH Q4H 03/10/19 04/05/19 03/10/19 History [Symbicort 160-4.5 Mcg Inhaler] Chlorpheniramine/Dextromethorp 1 each PO Q6HR 03/10/19 04/05/19 03/10/19 History [Cough-Cold Tablet] Citalopram [Celexa] 10 mg PO QDAY 03/10/19 04/05/19 03/10/19 History Pantoprazole [Protonix TAB] 40 mg PO QDAY 03/10/19 04/05/19 03/10/19 History Depakote ER 250 mg PO BID 03/27/19 04/05/19 Unknown History hydrALAZINE 25 mg PO TID 03/27/19 04/05/19 Unknown History methOCARBAMOL 500 mg PO Q6HR PRN 03/27/19 04/05/19 Unknown History Fluticasone [Flonase] 100 mcg NS QDAY #1 bottle 03/28/19 04/05/19 Unknown Rx Active Meds: Active Medications Acetaminophen (Tylenol) 650 mg PO Q4H PRN PRN Reason: Pain MILD(1-3)/Fever >100.5/C[place]OLL Allopurinol (Zyloprim) 100 mg PO QDAY [facility] Arformoterol Tartrate (Brovana Nebu) 15 mcg IH Q12HRT [facility] Aripiprazole (Aripiprazole) 10 mg PO DAILY [facility] Aspirin (Baby Aspirin) 81 mg PO QDAY [facility] Atorvastatin Calcium (Lipitor) 40 mg PO QHS [facility] Budesonide (Pulmicort) 0.5 mg IH Q12HRT [facility] Carvedilol (Coreg) 6.25 mg PO DAILY [facility] Citalopram Hydrobromide (Celexa) 10 mg PO QDAY [facility] Divalproex Sodium (Depakote Er) 250 mg PO BID [facility] Docusate Sodium (Colace) 100 mg PO BID [facility] Fluticasone Propionate (Flonase) 100 mcg NS QDAY [facility] Hydralazine HCl (Apresoline) 25 mg PO TID [facility] Morphine Sulfate (Morphine) 2 mg IV Q4H PRN PRN Reason: Pain, Moderate (4-6) Nicotine (Habitrol) 14 mg TD QDAY [facility] Nitroglycerin (Nitrostat) 0.4 mg SL Q5M PRN PRN Reason: Chest Pain Ondansetron HCl (Zofran) 4 mg IV Q6H PRN PRN Reason: Nausea And Vomiting Oxybutynin Chloride (Ditropan) 5 mg PO DAILY [facility] Pantoprazole Sodium (Protonix) 40 mg PO QDAY [facility] Sodium Chloride (Sodium Chloride Flush Syringe 10 Ml) 10 ml IV BID [facility] Sodium Chloride (Sodium Chloride Flush Syringe 10 Ml) 10 ml IV PRN PRN PRN Reason: LINE FLUSH Sodium Chloride (Sodium Chloride Flush Syringe 10 Ml) 10 ml IV PRN PRN PRN Reason: LINE FLUSH Review of Systems All systems: negative Cardiovascular: chest pain (radiation to left upper extremity) Gastrointestinal: other (intermittent epigastric pain) Exam - Physical Exam Narrative exam: General appearance: Present: No acute distress, anxious, alert and oriented 3, older adult female - EENT Eyes: Present: PERRL, EOM intact ENT: hearing intact, missing teeth - Neck Neck: Present: supple, normal ROM - Respiratory Respiratory effort: Non-labored Respiratory: bilateral: CTA with diminished bases bilaterally - Cardiovascular Heart rate:82 (bpm) Rhythm:SR Heart Sounds: Present: S1, S2. - Extremities Extremities: no ischemia, pulses intact - Peripheral Assessment Peripheral Pulses: within normal limits - Abdominal General gastrointestinal: soft, non-tender, normal bowel sounds, - Integumentary Integumentary: Present: warm, dry - Musculoskeletal Musculoskeletal: generalized weakness, ambulates with electric wheelchair due to chronic arthritis -Neurological Neurological: CN II-XII grossly intact - Psychiatric Psychiatric: cooperative - Constitutional Vitals: Temp Pulse Resp BP Pulse Ox 98.3 F 66 17 127/56 95 04/05/19 19:15 04/05/19 21:00 04/05/19 21:00 04/05/19 21:00 04/05/19 21:00 Results - Labs CBC & Chem 7: 04/05/19 18:07 04/05/19 21:38 Labs: Laboratory Last Values WBC 7.4 K/mm3 (4.5-11.0) 11/06/19 18:07 RBC 4.09 M/mm3 (3.65-5.03) 04/05/19 18:07 Hgb 11.7 gm/dl (10.1-14.3) 04/05/19 18:07 Hct 35.9 % (30.3-42.9) 04/05/19 18:07 MCV 88 fl (79-97) 04/05/19 18:07 MCH 29 pg (28-32) 04/05/19 18:07 MCHC 33 % (30-34) 04/05/19 18:07 RDW 17.4 % (13.2-15.2) H 04/05/19 18:07 Plt Count 382 K/mm3 (140-440) 04/05/19 18:07 Lymph % (Auto) 44.2 % (13.4-35.0) H 04/05/19 18:07 [place] % (Auto) 10.7 % (0.0-7.3) H 04/05/19 18:07 Eos % (Auto) 1.9 % (0.0-4.3) 04/05/19 18:07 Baso % (Auto) 1.1 % (0.0-1.8) 04/05/19 18:07 Lymph # 3.3 K/mm3 (1.2-5.4) 04/05/19 18:07 [place] # 0.8 K/mm3 (0.0-0.8) 04/05/19 18:07 Eos # 0.1 K/mm3 (0.0-0.4) 04/05/19 18:07 Baso # 0.1 K/mm3 (0.0-0.1) 04/05/19 18:07 Seg Neutrophils % 42.1 % (40.0-70.0) 04/05/19 18:07 Seg Neutrophils # 3.1 K/mm3 (1.8-7.7) 04/05/19 18:07 PT 11.9 Sec. (12.2-14.9) L 04/05/19 18:07 INR 0.88 (0.87-1.13) 04/05/19 18:07 APTT 27.2 Sec. (24.2-36.6) 04/05/19 18:07 Sodium 140 mmol/L (137-145) 04/05/19 21:38 Potassium 4.5 mmol/L (3.6-5.0) 04/05/19 21:38 Chloride 102.6 mmol/L (98-107) 04/05/19 21:38 Carbon Dioxide 27 mmol/L (22-30) 04/05/19 21:38 Anion Gap 15 mmol/L 04/05/19 21:38 BUN 34 mg/dL (7-17) H 04/05/19 21:38 Creatinine 2.0 mg/dL (0.7-1.2) H 04/05/19 21:38 Estimated GFR 30 ml/min 04/05/19 21:38 BUN/Creatinine Ratio 17 % 04/05/19 21:38 Glucose 88 mg/dL (65-100) 04/05/19 21:38 Calcium 8.6 mg/dL (8.4-10.2) 04/05/19 21:38 Total Bilirubin < 0.20 mg/dL (0.1-1.2) 04/05/19 18:41 AST 12 units/L (5-40) 04/05/19 18:41 ALT 9 units/L (7-56) 04/05/19 18:41 Alkaline Phosphatase 92 units/L (35-129) 04/05/19 18:41 Troponin T < 0.010 ng/mL (0.00-0.029) 04/05/19 20:34 Total Protein 6.7 g/dL (6.3-8.2) 04/05/19 18:41 Albumin 3.9 g/dL (3.9-5) 04/05/19 18:41 Albumin/Globulin Ratio 1.4 % 04/05/19 18:41 Lipase 62 units/L (13-60) H 04/05/19 18:41 Urine Color Yellow (Yellow) 04/05/19 20:45 Urine Turbidity Clear (Clear) 04/05/19 20:45 Urine pH 6.0 (5.0-7.0) 04/05/19 20:45 Ur Specific Jonancy 1.017 (1.003-1.030) 04/05/19 20:45 Urine Protein <15 mg/dl mg/dL (Negative) 04/05/19 20:45 Urine Glucose (UA) Neg mg/dL (Negative) 04/05/19 20:45 Urine Ketones Neg mg/dL (Negative) 04/05/19 20:45 Urine Blood Neg (Negative) 04/05/19 20:45 Urine Nitrite Neg (Negative) 04/05/19 20:45 Urine Bilirubin Neg (Negative) 04/05/19 20:45 Urine Urobilinogen < 2.0 mg/dL (<2.0) 04/05/19 20:45 Ur Leukocyte Esterase Neg (Negative) 04/05/19 20:45 Urine WBC (Auto) < 1.0 /HPF (0.0-6.0) 04/05/19 20:45 Urine RBC (Auto) 1.0 /HPF (0.0-6.0) 04/05/19 20:45 U Epithel Cells (Auto) 1.0 /HPF (0-13.0) 04/05/19 20:45 Urine Opiates Screen Presumptive negative 04/05/19 20:45 Urine Methadone Screen Presumptive negative 04/05/19 20:45 Ur Barbiturates Screen Presumptive negative 04/05/19 20:45 Ur Phencyclidine Scrn Presumptive negative 04/05/19 20:45 Ur Amphetamines Screen Presumptive negative 04/05/19 20:45 U Benzodiazepines Scrn Presumptive negative 04/05/19 20:45 Urine Cocaine Screen Presumptive negative 04/05/19 20:45 U Marijuana (THC) Screen Presumptive negative 04/05/19 20:45 Drugs of Abuse Note Disclamer 04/05/19 20:45 - Imaging and Cardiology Imaging and Cardiology: CXR: FINDINGS: Support devices: None. Heart: Within normal limits. Lungs/Pleura: No acute air space or interstitial disease. Additional findings: None. IMPRESSION: 1. No acute findings. Assessment and Plan Assessment and plan: 63-year-old -T[place] female with history of depression, bipolar, schizophrenia, COPD, hypertension, hyperlipidemia, chronic renal failure who presents to [facility] ED with complaints of left-sided chest pain with radiation to left arm. Anterior and the examination room patient was noted to be resting comfortably in stretcher. As I approach patient and introduced myself patient immediately became anxious, tearful and started complaining of intermittent chest pain. Will admit as OBS, and consult cardiology recommendations appreciated. Acute atypical Chest Pain -CXR negative -EKG unrevealing for acute ischemic abnormalities -Initiate chest pain protocol -Continuous telemetry monitoring -Continue supportive care -Pain mgmt -Troponin neg x2, will continue to trend -Continue ASA and Statin -Echo done 03/25/19 showed: Normal LVEF 60%, mild dilation of left atrium, mild aortic stenosis -Per pt she had MPI stress test done in 12/2018 at a facility in [place] and it was normal -Per Pt history of NV in 02/2019, however no documentation in medical records to support -Cardiology consulted CKD 2 -Cr on admission 2.0 -At Baseline -Avoid nephrotoxin agents -Renal dose all meds -Nephrology consulted Hx Paroxysmal atrial fibrillation -S/p ablation 2 (12/2018) at a facility in [place], [place] -No longer on oral anticoagulation post ablation Tobacco abuse -Current every day smoker -Counseled for cessation -Nicotine patch when necessary Alcohol abuse -Hx alcohol dependence and abuse -Initiate CIWA protocol Hx Depression Hx Bipolar -Continue Abilify, Celexa, Depakote Advance Directives: No VTE prophylaxis?: Chemical Plan of care discussed with patient/family: Yes
[2019-04-05] MEDS: DIVALPROEX ER 250 MG TAB PO SCH (23:19)
[2019-04-05] MEDS: DOCUSATE SODIUM 100 MG CAP PO SCH (23:19)
[2019-04-05] MEDS: NICOTINE 14 MG/24 HR PATCH TD SCH (23:19)
[2019-04-06 05:46] LABS: Basophils % (Auto) 0.5 % (0.0-1.8); Eosinophils # (Auto) 0.1 K/mm3 (0.0-0.4); Hematocrit 34.4 % (30.3-42.9); Hemoglobin 11.2 gm/dl (10.1-14.3); Lymphocytes % (Auto) 44.4 % (13.4-35.0); Mean Corpuscular HGB Conc 33 % (30-34); Mean Corpuscular Volume 88 fl (79-97); Monocytes % (Auto) 14.8 % (0.0-7.3); Platelet Count 325 K/mm3 (140-440); Red Blood Count 3.91 M/mm3 (3.65-5.03); Red Cell Distribution Width 17.4 % (13.2-15.2)
[2019-04-06 06:11] LABS: Calcium 8.3 mg/dL (8.4-10.2)
[2019-04-06] MEDS: ARFORMOTEROL 15 MCG/2 ML NEBU IH SCH ×2 (07:57→19:35)
[2019-04-06] MEDS: BUDESONIDE 0.5 MG/2 ML NEBU IH SCH ×2 (07:57→19:35)
[2019-04-06] MEDS: hydrALAZINE 25 MG TAB PO SCH ×3 (08:08→21:41)
[2019-04-06] MEDS: allopurinoL 100 MG TAB PO SCH (09:44)
[2019-04-06] MEDS: DOCUSATE SODIUM 100 MG CAP PO SCH ×2 (09:44→21:41)
[2019-04-06] MEDS: ASPIRIN 81 MG TAB CHEW PO SCH (09:44)
[2019-04-06] MEDS: ARIPiprazole 10 MG TAB PO SCH (09:44)
[2019-04-06] MEDS: PANTOPRAZOLE 40 MG TAB PO SCH (09:45)
[2019-04-06] MEDS: NICOTINE 14 MG/24 HR PATCH TD SCH (09:45)
[2019-04-06] MEDS: carvediloL 6.25 MG TAB PO SCH (09:45)
[2019-04-06] MEDS: DIVALPROEX ER 250 MG TAB PO SCH ×2 (10:24→21:42)
[2019-04-06] MEDS: OXYBUTYNIN 5 MG TAB PO SCH (10:24)
[2019-04-06] MEDS: FLUTICASONE PROPIONATE NASAL SPRAY 16 GM NS SCH (10:24)
[2019-04-06] MEDS: CITALOPRAM 10 MG TAB PO SCH (10:25)
--- NOTE | 2019-04-06 11:18 | Consultation ---
History of Present Illness Consult date: 04/06/19 Consult reason: chest pain History of present illness: This is a 64-year old woman with chronic tobacco abuse and schizo-affective disorder with depression. She has a history of renal disease and hypertension. She also has a cardiac history of paroxysmal atrial fibrillation. 2 months ago while in [place], she underwent atrial fibrillation ablation. Prior to the ablation, she had a negative pharmacologic stress test. She was treated with oral anticoagulation Eliquis, for a short period after the ablation and it was stopped by her doctors prior to her relocation to this area. Her latest echocardiogram done a month ago, showed normal left ventricular systolic function, ejection fraction 60%, mild to moderate concentric left ventricular hy pertrophy. There was also mild dilatation of the left atrium, and mild calcific aortic stenosis. Patient returns to this hospital with multiple complaints. Patient complained of headaches, abdominal pain and chest pain. There are no complaints of palpitations or dizziness. She denies nausea vomiting. Chest x-ray is negative. Cycled troponins are normal and her EKG is benign, no acute ST or T wave changes. A cardiac consultation has been requested for chest pain evaluation. Past History Past Medical History: other (depression, schizophrenia, bipolar) Past Surgical History: hysterectomy, tonsillectomy, Other (shoulder surgery) Social history: , lives with family, smoking, alcohol abuse Family history: CAD, cancer, diabetes, hypertension Medications and Allergies Allergies Allergy/AdvReac Type Severity Reaction Status Date / Time codeine Allergy Rash Verified 07/11/13 09:12 Sulfa (Sulfonamide Allergy Rash Verified 07/11/13 09:12 Antibiotics) lisinopril AdvReac Unknown Verified 04/05/19 18:48 Home Medications Medication Instructions Recorded Confirmed Last Taken Type traZODone [Desyrel] 50 mg PO QHS 08/09/13 04/05/19 04/05/14 History ARIPiprazole [Abilify TAB] 10 mg PO DAILY 03/23/14 04/05/19 04/06/14 History Carvedilol [Coreg] 6.25 mg PO DAILY 04/06/14 04/05/19 04/06/14 History Oxybutynin [Ditropan] 5 mg PO DAILY 04/06/14 04/05/19 04/06/14 History Naproxen [Naprosyn TAB] 500 mg PO BID PRN #30 tablet 04/07/14 04/05/19 Unknown Rx Allopurinol [Zyloprim] 100 mg PO QDAY 03/10/19 04/05/19 03/10/19 History Budesonide/Formoterol Fumarate 10.2 gm IH Q4H 03/10/19 04/05/19 03/10/19 History [Symbicort 160-4.5 Mcg Inhaler] Chlorpheniramine/Dextromethorp 1 each PO Q6HR 03/10/19 04/05/19 03/10/19 History [Cough-Cold Tablet] Citalopram [Celexa] 10 mg PO QDAY 03/10/19 04/05/19 03/10/19 History Pantoprazole [Protonix TAB] 40 mg PO QDAY 03/10/19 04/05/19 03/10/19 History Depakote ER 250 mg PO BID 03/27/19 04/05/19 Unknown History hydrALAZINE 25 mg PO TID 03/27/19 04/05/19 Unknown History methOCARBAMOL 500 mg PO Q6HR PRN 03/27/19 04/05/19 Unknown History Fluticasone [Flonase] 100 mcg NS QDAY #1 bottle 03/28/19 04/05/19 Unknown Rx Active Meds: Active Medications Acetaminophen (Tylenol) 650 mg PO Q4H PRN PRN Reason: Pain MILD(1-3)/Fever >100.5/[place] Last Admin: 04/06/19 00:34 Dose: 650 mg Documented by: Allopurinol (Zyloprim) 100 mg PO QDAY [facility] Last Admin: 04/06/19 09:44 Dose: 100 mg Documented by: Arformoterol Tartrate (Brovana Nebu) 15 mcg IH Q12HRT [facility] Last Admin: 04/06/19 07:57 Dose: 15 mcg Documented by: Aripiprazole (Aripiprazole) 10 mg PO DAILY [facility] Last Admin: 04/06/19 09:44 Dose: 10 mg Documented by: Aspirin (Baby Aspirin) 81 mg PO QDAY [facility] Last Admin: 04/06/19 09:44 Dose: 81 mg Documented by: Atorvastatin Calcium (Lipitor) 40 mg PO QHS [facility] Last Admin: 04/05/19 23:19 Dose: 40 mg Documented by: Budesonide (Pulmicort) 0.5 mg IH Q12HRT [facility] Last Admin: 04/06/19 07:57 Dose: 0.5 mg Documented by: Carvedilol (Coreg) 6.25 mg PO DAILY [facility] Last Admin: 04/06/19 09:45 Dose: 6.25 mg Documented by: Citalopram Hydrobromide (Celexa) 10 mg PO QDAY [facility] Last Admin: 04/06/19 10:25 Dose: 10 mg Documented by: Divalproex Sodium (Depakote Er) 250 mg PO BID [facility] Last Admin: 04/06/19 10:24 Dose: 250 mg Documented by: Docusate Sodium (Colace) 100 mg PO BID [facility] Last Admin: 04/06/19 09:44 Dose: 100 mg Documented by: Fluticasone Propionate (Flonase) 100 mcg NS QDAY [facility] Last Admin: 04/06/19 10:24 Dose: 100 mcg Documented by: Hydralazine HCl (Apresoline) 25 mg PO TID [facility] Last Admin: 04/06/19 08:08 Dose: 25 mg Documented by: Lorazepam (Ativan) 2 mg IV Q1H PRN PRN Reason: CIWA-Ar 8-15 Lorazepam (Ativan) 4 mg IV Q1H PRN PRN Reason: CIWA-Ar 16-25 Morphine Sulfate (Morphine) 2 mg IV Q4H PRN PRN Reason: Pain, Moderate (4-6) Last Admin: 04/06/19 08:08 Dose: 2 mg Documented by: Nicotine (Habitrol) 14 mg TD QDAY [facility] Last Admin: 04/06/19 09:45 Dose: 14 mg Documented by: Nitroglycerin (Nitrostat) 0.4 mg SL Q5M PRN PRN Reason: Chest Pain Ondansetron HCl (Zofran) 4 mg IV Q6H PRN PRN Reason: Nausea And Vomiting Oxybutynin Chloride (Ditropan) 5 mg PO DAILY [facility] Last Admin: 04/06/19 10:24 Dose: 5 mg Documented by: Pantoprazole Sodium (Protonix) 40 mg PO QDAY [facility] Last Admin: 04/06/19 09:45 Dose: 40 mg Documented by: Sodium Chloride (Sodium Chloride Flush Syringe 10 Ml) 10 ml IV BID [facility] Last Admin: 04/06/19 09:47 Dose: 10 ml Documented by: Sodium Chloride (Sodium Chloride Flush Syringe 10 Ml) 10 ml IV PRN PRN PRN Reason: LINE FLUSH Sodium Chloride (Sodium Chloride Flush Syringe 10 Ml) 10 ml IV PRN PRN PRN Reason: LINE FLUSH Physical Examination Vital Signs Temp Pulse Resp BP Pulse Ox 98 F 64 20 139/52 100 04/05/19 17:58 04/05/19 17:58 04/05/19 17:58 04/05/19 17:58 04/05/19 17:58 General appearance: no acute distress HEENT: Positive: PERRL Neck: Positive: trachea midline Cardiac: Positive: Reg Rate and Rhythm Lungs: Positive: Normal Breath Sounds Neuro: Positive: Grossly Intact Extremities: Absent: edema Results 04/06/19 04:39 04/06/19 04:39 Cardiac Enzymes 04/05/19 Range/Units 18:41 AST 12 (5-40) units/L Coagulation 04/05/19 Range/Units 18:07 PT 11.9 L (12.2-14.9) Sec. INR 0.88 (0.87-1.13) APTT 27.2 (24.2-36.6) Sec. CBC 04/05/19 04/06/19 Range/Units 18:07 04:39 WBC 7.4 6.8 (4.5-11.0) K/mm3 RBC 4.09 3.91 (3.65-5.03) M/mm3 Hgb 11.7 11.2 (10.1-14.3) gm/dl Hct 35.9 34.4 (30.3-42.9) % Plt Count 382 325 (140-440) K/mm3 Lymph # 3.3 3.0 (1.2-5.4) K/mm3 [place] # 0.8 1.0 H (0.0-0.8) K/mm3 Eos # 0.1 0.1 (0.0-0.4) K/mm3 Baso # 0.1 0.0 (0.0-0.1) K/mm3 Comprehensive Metabolic Panel 04/05/19 04/05/19 04/06/19 Range/Units 18:41 21:38 04:39 Sodium 140 140 141 (137-145) mmol/L Potassium 4.2 4.5 4.1 (3.6-5.0) mmol/L Chloride 100.1 102.6 103.0 (98-107) mmol/L Carbon Dioxide 25 27 24 (22-30) mmol/L BUN 36 H 34 H 32 H (7-17) mg/dL Creatinine 2.0 H 2.0 H 1.7 H (0.7-1.2) mg/dL Glucose 116 H 88 88 (65-100) mg/dL Calcium 8.9 8.6 8.3 L (8.4-10.2) mg/dL AST 12 (5-40) units/L ALT 9 (7-56) units/L Alkaline Phosphatase 92 (35-129) units/L Total Protein 6.7 (6.3-8.2) g/dL Albumin 3.9 (3.9-5) g/dL Assessment and Plan Hx of schizo-affective disorder with depression Chronic renal failure Hypertension Tobacco abuse Atypical chest pain normal MPI while living in [place] 2 months ago per pt. Hx of paroxysmal atrial fibrillation s/p ablation 2 months ago per pt while living in [place]. no longer on oral anticoagulation. An echocardiogram done 02/2019 reports normal LVEF, EF 60%. There was also mild dilatation of the left atrium, and mild calcific aortic stenosis.
[2019-04-06] MEDS: KETOROLAC 30 MG/1 ML INJ IV SCH ×2 (12:00→21:42)
--- NOTE | 2019-04-06 15:05 | Progress Note ---
Assessment and Plan Assessment and plan: 63-year-old -Tuval[place] female with history of depression, bipolar, schizophrenia, COPD, hypertension, hyperlipidemia, chronic renal failure who presents to [facility] ED with complaints of left-sided chest pain with radiation to left arm. Anterior and the examination room patient was noted to be resting comfortably in stretcher. As I approach patient and introduced myself patient immediately became anxious, tearful and started complaining of intermittent chest pain. Will admit as OBS, and consult cardiology recommendations appreciated. Acute atypical Chest Pain -CXR negative -EKG unrevealing for acute ischemic abnormalities -Initiate chest pain protocol -Continuous telemetry monitoring -Continue supportive care -Pain mgmt -Troponin neg x2, will continue to trend -Continue ASA and Statin -Echo done 03/25/19 showed: Normal LVEF 60%, mild dilation of left atrium, mild aortic stenosis -stress test 3 months ago in other hospital was negative -Cardiology consulted and recommend no further test recommended CKD 2 -Cr on admission 2.0 -At Baseline -Avoid nephrotoxin agents -Renal dose all meds -Nephrology consulted Hx Paroxysmal atrial fibrillation -S/p ablation 2 (12/2018) at a facility in [place], [place] -No longer on oral anticoagulation post ablation Tobacco abuse -Current every day smoker -Counseled for cessation -Nicotine patch when necessary Alcohol abuse -Hx alcohol dependence and abuse -Initiate CIWA protocol Hx Depression Hx Bipolar -Continue Abilify, Celexa, Depakote -Consult mental health History Interval history: Patient was seen and evaluated this morning. patient complains left sided non specific chest pain. Hospitalist Physical - Physical exam Narrative exam: Not in cardiopulmonary distress. The patient appeared well nourished and normally developed. Vital signs as documented. Head exam is unremarkable. No scleral icterus . Neck is without jugular venous distension, thyromegaly, or carotid bruits. Lungs are clear to auscultation. Cardiac exam reveals regular rate and Rhythm. Abdominal exam reveals normal bowel sounds, nontender, no organomegaly. Extremities are nonedematous and both femoral and pedal pulses are normal. 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 No focal weakness. - Constitutional Vitals: Temp Pulse Resp BP Pulse Ox 98.0 F 69 18 134/58 99 04/06/19 12:35 04/06/19 13:34 04/06/19 12:35 04/06/19 13:34 04/06/19 12:35 General appearance: Present: no acute distress Results - Labs CBC & Chem 7: 04/06/19 04:39 04/06/19 04:39 Labs: Laboratory Last Values WBC 6.8 K/mm3 (4.5-11.0) 04/06/19 04:39 RBC 3.91 M/mm3 (3.65-5.03) 04/06/19 04:39 Hgb 11.2 gm/dl (10.1-14.3) 04/06/19 04:39 Hct 34.4 % (30.3-42.9) 04/06/19 04:39 MCV 88 fl (79-97) 04/06/19 04:39 MCH 29 pg (28-32) 04/06/19 04:39 MCHC 33 % (30-34) 04/06/19 04:39 RDW 17.4 % (13.2-15.2) H 04/06/19 04:39 Plt Count 325 K/mm3 (140-440) 04/06/19 04:39 Lymph % (Auto) 44.4 % (13.4-35.0) H 04/06/19 04:39 [place] % (Auto) 14.8 % (0.0-7.3) H 04/06/19 04:39 Eos % (Auto) 2.0 % (0.0-4.3) 04/06/19 04:39 Baso % (Auto) 0.5 % (0.0-1.8) 04/06/19 04:39 Lymph # 3.0 K/mm3 (1.2-5.4) 04/06/19 04:39 [place] # 1.0 K/mm3 (0.0-0.8) H 04/06/19 04:39 Eos # 0.1 K/mm3 (0.0-0.4) 04/06/19 04:39 Baso # 0.0 K/mm3 (0.0-0.1) 04/06/19 04:39 Seg Neutrophils % 38.3 % (40.0-70.0) L 04/06/19 04:39 Seg Neutrophils # 2.6 K/mm3 (1.8-7.7) 04/06/19 04:39 PT 11.9 Sec. (12.2-14.9) L 04/05/19 18:07 INR 0.88 (0.87-1.13) 04/05/19 18:07 APTT 27.2 Sec. (24.2-36.6) 04/05/19 18:07 Sodium 141 mmol/L (137-145) 04/06/19 04:39 Potassium 4.1 mmol/L (3.6-5.0) 04/06/19 04:39 Chloride 103.0 mmol/L (98-107) 04/06/19 04:39 Carbon Dioxide 24 mmol/L (22-30) 04/06/19 04:39 Anion Gap 18 mmol/L 04/06/19 04:39 BUN 32 mg/dL (7-17) H 04/06/19 04:39 Creatinine 1.7 mg/dL (0.7-1.2) H 04/06/19 04:39 Estimated GFR 37 ml/min 04/06/19 04:39 BUN/Creatinine Ratio 19 % 04/06/19 04:39 Glucose 88 mg/dL (65-100) 04/06/19 04:39 Calcium 8.3 mg/dL (8.4-10.2) L 04/06/19 04:39 Total Bilirubin < 0.20 mg/dL (0.1-1.2) 04/05/19 18:41 AST 12 units/L (5-40) 04/05/19 18:41 ALT 9 units/L (7-56) 04/05/19 18:41 Alkaline Phosphatase 92 units/L (35-129) 04/05/19 18:41 Troponin T < 0.010 ng/mL (0.00-0.029) 04/06/19 00:16 Total Protein 6.7 g/dL (6.3-8.2) 04/05/19 18:41 Albumin 3.9 g/dL (3.9-5) 04/05/19 18:41 Albumin/Globulin Ratio 1.4 % 04/05/19 18:41 Lipase 62 units/L (13-60) H 04/05/19 18:41 Urine Color Yellow (Yellow) 04/05/19 20:45 Urine Turbidity Clear (Clear) 04/05/19 20:45 Urine pH 6.0 (5.0-7.0) 04/05/19 20:45 Ur Specific [place] 1.017 (1.003-1.030) 04/05/19 20:45 Urine Protein <15 mg/dl mg/dL (Negative) 04/05/19 20:45 Urine Glucose (UA) Neg mg/dL (Negative) 04/05/19 20:45 Urine Ketones Neg mg/dL (Negative) 04/05/19 20:45 Urine Blood Neg (Negative) 04/05/19 20:45 Urine Nitrite Neg (Negative) 04/05/19 20:45 Urine Bilirubin Neg (Negative) 04/05/19 20:45 Urine Urobilinogen < 2.0 mg/dL (<2.0) 04/05/19 20:45 Ur Leukocyte Esterase Neg (Negative) 04/05/19 20:45 Urine WBC (Auto) < 1.0 /HPF (0.0-6.0) 04/05/19 20:45 Urine RBC (Auto) 1.0 /HPF (0.0-6.0) 04/05/19 20:45 U Epithel Cells (Auto) 1.0 /HPF (0-13.0) 04/05/19 20:45 Urine Opiates Screen Presumptive negative 04/05/19 20:45 Urine Methadone Screen Presumptive negative 04/05/19 20:45 Ur Barbiturates Screen Presumptive negative 04/05/19 20:45 Ur Phencyclidine Scrn Presumptive negative 04/05/19 20:45 Ur Amphetamines Screen Presumptive negative 04/05/19 20:45 U Benzodiazepines Scrn Presumptive negative 04/05/19 20:45 Urine Cocaine Screen Presumptive negative 04/05/19 20:45 U Marijuana (THC) Screen Presumptive negative 04/05/19 20:45 Drugs of Abuse Note Disclamer 04/05/19 20:45 Active Medications - Current Medications Current Medications: Generic Name Dose Route Start Last Admin Trade Name Freq PRN Reason Stop Dose Admin Acetaminophen 650 mg 04/05/19 21:17 04/06/19 00:34 Tylenol PO 650 mg Q4H PRN Administration Pain MILD(1-3)/Fever >100.5/CARR[place]LL Allopurinol 100 mg 04/06/19 10:00 04/06/19 09:44 Zyloprim PO 100 mg QDAY MARCIO Administration Arformoterol Tartrate 15 mcg 04/06/19 08:00 04/06/19 07:57 Brovana Nebu IH 15 mcg Q12HRT MARCIO Administration Aripiprazole 10 mg 04/06/19 10:00 04/06/19 09:44 Aripiprazole PO 10 mg DAILY MARCIO Administration Aspirin 81 mg 04/06/19 10:00 04/06/19 09:44 Baby Aspirin PO 81 mg QDAY MARCIO Administration Atorvastatin Calcium 40 mg 04/05/19 22:00 04/05/19 23:19 Lipitor PO 40 mg QHS MARCIO Administration Budesonide 0.5 mg 04/06/19 08:00 04/06/19 07:57 Pulmicort IH 0.5 mg Q12HRT MARCIO Administration Carvedilol 6.25 mg 04/06/19 10:00 04/06/19 09:45 Coreg PO 6.25 mg DAILY MARCIO Administration Citalopram Hydrobromide 10 mg 04/06/19 10:00 04/06/19 10:25 Celexa PO 10 mg QDAY MARCIO Administration Divalproex Sodium 250 mg 04/05/19 22:00 04/06/19 10:24 Depakote Er PO 250 mg BID MARCIO Administration Docusate Sodium 100 mg 04/05/19 22:00 04/06/19 09:44 Colace PO 100 mg BID MARCIO Administration Fluticasone Propionate 100 mcg 04/06/19 10:00 04/06/19 10:24 Flonase NS 100 mcg QDAY MARCIO Administration Hydralazine HCl 25 mg 04/06/19 08:00 04/06/19 13:34 Apresoline PO 25 mg TID MARCIO Administration Ketorolac Tromethamine 15 mg 04/06/19 12:00 04/06/19 12:00 Toradol IV 04/08/19 11:59 15 mg Q8H MARCIO Administration Lorazepam 2 mg 04/05/19 22:50 Ativan IV Q1H PRN CIWA-Ar 8-15 Lorazepam 4 mg 04/05/19 22:50 Ativan IV Q1H PRN CIWA-Ar 16-25 Morphine Sulfate 2 mg 04/05/19 21:17 04/06/19 08:08 Morphine IV 2 mg Q4H PRN Administration Pain, Moderate (4-6) Nicotine 14 mg 04/05/19 22:00 04/06/19 09:45 Habitrol TD 14 mg QDAY MARCIO Administration Nitroglycerin 0.4 mg 04/05/19 21:27 Nitrostat SL Q5M PRN Chest Pain Ondansetron HCl 4 mg 04/05/19 21:17 Zofran IV Q6H PRN Nausea And Vomiting Oxybutynin Chloride 5 mg 04/06/19 10:00 04/06/19 10:24 Ditropan PO 5 mg DAILY MARCIO Administration Pantoprazole Sodium 40 mg 04/06/19 10:00 04/06/19 09:45 Protonix PO 40 mg QDAY MARCIO Administration Sodium Chloride 10 ml 04/05/19 22:00 04/06/19 09:47 Sodium Chloride Flush Syringe 10 Ml IV 10 ml BID MARCIO Administration Sodium Chloride 10 ml 04/05/19 21:17 Sodium Chloride Flush Syringe 10 Ml IV PRN PRN LINE FLUSH Sodium Chloride 10 ml 04/05/19 21:27 Sodium Chloride Flush Syringe 10 Ml IV PRN PRN LINE FLUSH
[2019-04-07 04:45] LABS: Calcium 8.5 mg/dL (8.4-10.2)
[2019-04-07] MEDS: KETOROLAC 30 MG/1 ML INJ IV SCH ×2 (05:37→11:08)
--- NOTE | 2019-04-07 07:20 | Event Note ---
Date: 04/07/19 Patient is medically stable for DC need assessment by psych if she need to go back to [facility] or any other psych facility.
[2019-04-07] MEDS: ARFORMOTEROL 15 MCG/2 ML NEBU IH SCH (07:50)
[2019-04-07] MEDS: BUDESONIDE 0.5 MG/2 ML NEBU IH SCH (07:50)
--- NOTE | 2019-04-07 08:38 | Progress Note ---
Assessment and Plan Hx of schizo-affective disorder with depression Chronic renal failure Hypertension Tobacco abuse Atypical chest pain, appears likely musculoskeletal normal MPI while living in [place] 2 months ago per pt. Hx of paroxysmal atrial fibrillation s/p ablation 2 months ago per pt while living in [place]. no longer on oral anticoagulation. An echocardiogram done 02/2019 reports normal LVEF, EF 60%. There was also mild dilatation of the left atrium, and mild calcific aortic stenosis. No further cardiac workup is indicated. Conservative cardiac management. Subjective Date of service: 04/07/19 Interval history: Patient reports she is feeling better. She denies chest pain and shortness of breath. Objective Vital Signs Temp Pulse Pulse Pulse Pulse Pulse Pulse 04/07/19 08:12 66 04/07/19 05:13 98.3 F 04/07/19 05:00 98.3 F 65 04/07/19 01:00 72 04/06/19 19:35 71 04/06/19 19:25 98.0 F 67 04/06/19 17:00 68 04/06/19 16:24 97.9 F 62 04/06/19 13:34 69 04/06/19 12:35 98.0 F 68 04/06/19 12:00 67 04/06/19 10:42 70 04/06/19 10:00 69 69 69 04/06/19 09:45 69 Resp Resp Resp BP BP Pulse Ox 04/07/19 08:12 20 04/07/19 05:13 20 137/58 04/07/19 05:00 20 137/58 04/07/19 01:00 04/06/19 19:35 18 04/06/19 19:25 18 131/58 97 04/06/19 17:00 04/06/19 16:24 18 138/61 100 04/06/19 13:34 134/58 04/06/19 12:35 18 142/51 99 04/06/19 12:00 04/06/19 10:42 124/67 100 04/06/19 10:00 19 99 04/06/19 09:45 124/67 - Physical Examination General: No Apparent Distress HEENT: Positive: PERRL Neck: Positive: trachea midline Cardiac: Positive: Reg Rate and Rhythm Lungs: Positive: Normal Breath Sounds Neuro: Positive: Grossly Intact Extremities: Absent: edema - Labs and Meds Comprehensive Metabolic Panel 11/08/19 Range/Units 03:30 Sodium 142 (137-145) mmol/L Potassium 4.7 (3.6-5.0) mmol/L Chloride 105.1 (98-107) mmol/L Carbon Dioxide 24 (22-30) mmol/L BUN 34 H (7-17) mg/dL Creatinine 1.8 H (0.7-1.2) mg/dL Glucose 110 H (65-100) mg/dL Calcium 8.5 (8.4-10.2) mg/dL
[2019-04-07] MEDS: carvediloL 6.25 MG TAB PO SCH (09:50)
[2019-04-07] MEDS: ARIPiprazole 10 MG TAB PO SCH (09:50)
[2019-04-07] MEDS: PANTOPRAZOLE 40 MG TAB PO SCH (09:51)
[2019-04-07] MEDS: CITALOPRAM 10 MG TAB PO SCH (09:51)
[2019-04-07] MEDS: OXYBUTYNIN 5 MG TAB PO SCH (09:51)
[2019-04-07] MEDS: ASPIRIN 81 MG TAB CHEW PO SCH (09:51)
[2019-04-07] MEDS: DOCUSATE SODIUM 100 MG CAP PO SCH (09:51)
[2019-04-07] MEDS: DIVALPROEX ER 250 MG TAB PO SCH (09:51)
[2019-04-07] MEDS: allopurinoL 100 MG TAB PO SCH (09:51)
[2019-04-07] MEDS: hydrALAZINE 25 MG TAB PO SCH (09:51)
[2019-04-07] MEDS: NICOTINE 14 MG/24 HR PATCH TD SCH (09:54)
--- NOTE | 2019-04-07 10:09 | Discharge Summary ---
Providers - Providers Date of Admission: 04/05/19 20:22 Attending physician: KANCHAN CERON MD 04/05/19 21:17 Consult to Physician [CONS] Routine Comment: Consulting Provider: CATRACHITO DAVENPORT Physician Instructions: Reason For Exam: est pt c/o cp; 04/06/19 14:36 Consult to Mental Health [CONS] Routine Reason For Exam: bipolar disorder, MDD Place consult to:: mental health Notified:: Nora FUCHS Phone number called:: Ext. 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 Anterior and the examination room patient was noted to be resting comfortably in stretcher. As I approach patient and introduced myself patient immediately became anxious, tearful and started complaining of intermittent karina [address] pain. Will admit as OBS, and consult cardiology recommendations appreciated. Patient was admitted to the floor and cardiology evaluated her and, no further workup. Agent had recent negative stress test and echo. Patient's atypical chest pain resolved. Patient was hemodynamically stable. I consulted meantime his for disposition and cleared her medically. Disposition is per mental health either to send to [facility] her home.. Disposition: DC- TO HOME OR SELFCARE Time spent for discharge: 32 minutes - Discharge Diagnoses (1) CKD (chronic kidney disease) Status: Acute Qualifiers: Chronic kidney disease stage: unspecified stage Qualified Code(s): N18.9 - Chronic kidney disease, unspecified (2) Chest pain Status: Acute Qualifiers: Chest pain type: unspecified Qualified Code(s): R07.9 - Chest pain, unspecified (3) Alcohol abuse Status: Acute (4) Depression Status: Acute Qualifiers: Depression Type: unspecified Qualified Code(s): F32.9 - Major depressive disorder, single episode, unspecified (5) Paroxysmal atrial fibrillation Status: Acute Core Measure Documentation - Palliative Care Palliative Care/ Comfort Measures: Not Applicable - Core Measures Any of the following diagnoses?: none Exam - Physical Exam Narrative exam: Not in cardiopulmonary distress. The patient appeared well nourished and normally developed. Vital signs as documented. Head exam is unremarkable. No scleral icterus . Neck is without jugular venous distension, thyromegaly, or carotid bruits. Lungs are clear to auscultation. Cardiac exam reveals regular rate and Rhythm. Abdominal exam reveals normal bowel sounds, nontender, no organomegaly. Extremities are nonedematous and both femoral and pedal pulses are normal. 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 No focal weakness. - Constitutional Vitals: Temp Pulse Resp BP Pulse Ox 98.3 F 66 20 137/58 97 04/07/19 05:13 04/07/19 08:12 04/07/19 08:12 04/07/19 05:13 04/06/19 19:25 Plan Activity: no restrictions Weight Bearing Status: Full Weight Bearing Diet: low salt Follow up with: PRIMARY CARE, [Primary Care Provider] - 3-5 Days Forms: Discharge Signature Page Prescriptions: AtorvaSTATin [Lipitor] 40 mg PO QHS #30 tablet
[2019-04-07] MEDS: FLUTICASONE PROPIONATE NASAL SPRAY 16 GM NS SCH (11:09)
[2019-04-07 11:38] VITALS: BP 127/65
== END 2019-04-07 12:57 | disposition home or self-care (01) ==
LOC: ED 17:29 → 4A 20:22 → INTOOBSV 20:22
PROVIDERS: ADMIT Internal Medicine; ATTEND Internal Medicine
DX: R07.89 Other chest pain (principal); I48.0 Paroxysmal atrial fibrillation; I12.9 Hypertensive chronic kidney disease with stage 1 through stage 4 chronic kidney disease, or unspecified chronic kidney disease; N18.2 Chronic kidney disease, stage 2 (mild); F10.10 Alcohol abuse, uncomplicated; F31.9 Bipolar disorder, unspecified; F20.9 Schizophrenia, unspecified; J44.9 Chronic obstructive pulmonary disease, unspecified; E78.5 Hyperlipidemia, unspecified; I25.2 Old myocardial infarction; M19.90 Unspecified osteoarthritis, unspecified site; K21.9 Gastro-esophageal reflux disease without esophagitis; I35.0 Nonrheumatic aortic (valve) stenosis; F17.200 Nicotine dependence, unspecified, uncomplicated; Z90.710 Acquired absence of both cervix and uterus; Z90.89 Acquired absence of other organs; Z71.6 Tobacco abuse counseling; Z79.51 Long term (current) use of inhaled steroids; Z79.899 Other long term (current) drug therapy; Z79.82 Long term (current) use of aspirin; Z88.5 Allergy status to narcotic agent; Z88.2 Allergy status to sulfonamides; Z88.8 Allergy status to other drugs, medicaments and biological substances
CPT/HCPCS: 36415; 71045; 80048; 80053; 80307; 81001; 83690; 84484; 85025; 85610; 85730; 93005; 93010; 94640; 96374; 96375; 96376; 99291; 99406; A9270; G0378; J1885; J2270; 96360

== ENCOUNTER 2019-04-22 02:29 | Emergency (ER) | payer MEDICARE ==
[2019-04-22] MEDS ORDERED: KETOROLAC 30 MG/1 ML INJ IM ONE (05:53)
[2019-04-22] MEDS ORDERED: predniSONE 20 MG TAB PO ONE (05:57)
--- NOTE | 2019-04-22 06:03 | Emergency Department Report ---
ED Back Pain/Injury HPI - General Chief Complaint: Back Pain/Injury Stated Complaint: BACK PAIN Time Seen by Provider: 04/22/19 05:51 Source: patient Limitations: No Limitations - History of Present Illness Initial Comments: Ms. Constantino is a 64 y/o aaf who presents for low back pain radiating to left hip x 2 days, pt has hx chronic low back pain for past several yrs. pt deneis fall injury, or trauma. pt state she have accupuncture 2 days ago but no improvement in symptoms. Pain is described as 5/10 aching, there is no numbness, no tingling, no weakness, no loss or decrease in bowel or bladder function. Pt deneis dysuria , frequency , urgency, or hematuria. Pt remian ambulatory to baseline per patient. MD Complaint: back pain Onset/Timin -: days(s), unknown (5 yrs chronic ) Similar Symptoms Previously: Yes Place: home Radiation: left leg Severity: moderate Severity scale (0 -10): 5 Quality: aching Consistency: constant Improves With: none Worsens With: movement, sitting upright Context: unknown Associated Symptoms: denies: weakness, difficulty walking, difficulty urinating, incontinence, fever/chills, constipation, headaches - Related Data Home Medications Medication Instructions Recorded Confirmed Last Taken traZODone [Desyrel] 50 mg PO QHS 08/09/13 04/05/19 04/05/14 ARIPiprazole [Abilify TAB] 10 mg PO DAILY 03/23/14 04/05/19 04/06/14 Oxybutynin [Ditropan] 5 mg PO DAILY 04/06/14 04/05/19 04/06/14 carvediloL [Coreg] 6.25 mg PO DAILY 04/06/14 04/05/19 04/06/14 Allopurinol [Zyloprim] 100 mg PO QDAY 03/10/19 04/05/19 03/10/19 Budesonide/Formoterol Fumarate 10.2 gm IH Q4H 03/10/19 04/05/19 03/10/19 [Symbicort 160-4.5 Mcg Inhaler] Chlorpheniramine/Dextromethorp 1 each PO Q6HR 03/10/19 04/05/19 03/10/19 [Cough-Cold Tablet] Citalopram [Celexa] 10 mg PO QDAY 03/10/19 04/05/19 03/10/19 Pantoprazole [Protonix TAB] 40 mg PO QDAY 03/10/19 04/05/19 03/10/19 Depakote ER 250 mg PO BID 03/27/19 04/05/19 Unknown hydrALAZINE 25 mg PO TID 03/27/19 04/05/19 Unknown methOCARBAMOL 500 mg PO Q6HR PRN 03/27/19 04/05/19 Unknown Previous Rx's Medication Instructions Recorded Last Taken Type Fluticasone [Flonase] 100 mcg NS QDAY #1 bottle 03/28/19 Unknown Rx AtorvaSTATin [Lipitor] 40 mg PO QHS #30 tablet 04/07/19 Unknown Rx traMADoL [Ultram] 50 mg PO Q6HR PRN #12 tablet 04/22/19 Unknown Rx Allergies Allergy/AdvReac Type Severity Reaction Status Date / Time codeine Allergy Rash Verified 07/11/13 09:12 Sulfa (Sulfonamide Allergy Rash Verified 07/11/13 09:12 Antibiotics) lisinopril AdvReac Unknown Verified 04/05/19 18:48 ED Review of Systems ROS: Stated complaint: BACK PAIN Other details as noted in HPI Constitutional: denies: chills, fever Eyes: denies: eye pain, eye discharge, vision change ENT: denies: ear pain, throat pain Respiratory: denies: cough, shortness of breath, wheezing Cardiovascular: denies: chest pain, palpitations Endocrine: no symptoms reported Gastrointestinal: as per HPI. denies: abdominal pain, nausea, vomiting Genitourinary: frequency. denies: urgency, dysuria, hematuria, discharge Musculoskeletal: back pain, arthralgia, myalgia Skin: denies: rash, lesions Neurological: denies: headache, weakness, paresthesias Psychiatric: denies: anxiety, depression Hematological/Lymphatic: denies: easy bleeding, easy bruising ED Past Medical Hx - Past Medical History Previous Medical History?: Yes Hx Hypertension: Yes Hx Heart Attack/AMI: Yes Hx Congestive Heart Failure: Yes Hx GERD: Yes Hx Renal Disease: Yes (ckd) Hx Arthritis: Yes (Osteo) Hx Psychiatric Treatment: Yes (SCHIZO-AFFECTIVE) Hx COPD: Yes Additional medical history: AFIB, bells palsy, back pain - Surgical History Hx Cholecystectomy: Yes Additional Surgical History: Cholecystectomy and hysterectomy, rt roary cuff, heart ablation - Social History Smoking Status: Current Every Day Smoker Substance Use Type: None - Medications Home Medications: Home Medications Medication Instructions Recorded Confirmed Last Taken Type traZODone [Desyrel] 50 mg PO QHS 08/09/13 04/05/19 04/05/14 History ARIPiprazole [Abilify TAB] 10 mg PO DAILY 03/23/14 04/05/19 04/06/14 History Oxybutynin [Ditropan] 5 mg PO DAILY 04/06/14 04/05/19 04/06/14 History carvediloL [Coreg] 6.25 mg PO DAILY 04/06/14 04/05/19 04/06/14 History Allopurinol [Zyloprim] 100 mg PO QDAY 03/10/19 04/05/19 03/10/19 History Budesonide/Formoterol Fumarate 10.2 gm IH Q4H 03/10/19 04/05/19 03/10/19 History [Symbicort 160-4.5 Mcg Inhaler] Chlorpheniramine/Dextromethorp 1 each PO Q6HR 03/10/19 04/05/19 03/10/19 History [Cough-Cold Tablet] Citalopram [Celexa] 10 mg PO QDAY 03/10/19 04/05/19 03/10/19 History Pantoprazole [Protonix TAB] 40 mg PO QDAY 03/10/19 04/05/19 03/10/19 History Depakote ER 250 mg PO BID 03/27/19 04/05/19 Unknown History hydrALAZINE 25 mg PO TID 03/27/19 04/05/19 Unknown History methOCARBAMOL 500 mg PO Q6HR PRN 03/27/19 04/05/19 Unknown History Fluticasone [Flonase] 100 mcg NS QDAY #1 bottle 03/28/19 04/05/19 Unknown Rx AtorvaSTATin [Lipitor] 40 mg PO QHS #30 tablet 04/07/19 Unknown Rx traMADoL [Ultram] 50 mg PO Q6HR PRN #12 tablet 04/22/19 Unknown Rx ED Physical Exam - General Limitations: No Limitations General appearance: alert, in no apparent distress - Head Head exam: Present: atraumatic, normocephalic - Eye Eye exam: Present: normal appearance, PERRL, EOMI Pupils: Present: normal accommodation - ENT ENT exam: Present: mucous membranes moist - Neck Neck exam: Present: normal inspection, full ROM. Absent: tenderness, meningismus, lymphadenopathy, thyromegaly - Respiratory Respiratory exam: Present: normal lung sounds bilaterally. Absent: respiratory distress, wheezes, stridor - Cardiovascular Cardiovascular Exam: Present: regular rate, normal rhythm, normal heart sounds. Absent: systolic murmur, diastolic murmur, rubs, gallop - GI/Abdominal GI/Abdominal exam: Present: soft, normal bowel sounds. Absent: distended, tenderness, guarding, rebound, rigid, bruit, hernia - Rectal Rectal exam: Present: deferred - Extremities Exam Extremities exam: Present: normal inspection, full ROM, normal capillary refill. Absent: tenderness, pedal edema, joint swelling - Back Exam Back exam: Present: normal inspection, full ROM, tenderness (mild paraspinus muscle tenderness to deep palpation, no posterior vertebral point tenderness), muscle spasm, paraspinal tenderness. Absent: CVA tenderness (R), CVA tenderness (L), vertebral tenderness, rash noted - Expanded Back Exam Expanded Back exam: Absent: saddle anesthesia Back exam: Sciatic Notch Tenderness: Left, Positive Straight Leg Raise: Left, Negative Straight Leg Raising: Right - Neurological Exam Neurological exam: Present: alert, oriented X3, CN II-XII intact, normal gait, reflexes normal. Absent: motor sensory deficit - Psychiatric Psychiatric exam: Present: normal affect, normal mood - Skin Skin exam: Present: warm, dry, intact, normal color. Absent: rash ED Course Vital Signs 04/22/19 04/22/19 02:47 06:11 Temperature 97.7 F Pulse Rate 70 Respiratory 23 18 Rate Blood Pressure 146/71 O2 Sat by Pulse 100 Oximetry ED Medical Decision Making - Medical Decision Making This is an acute on chronic flare , there has been no new fall , injury, or trauma, pt denies numbness no tingling , loss or decrease in bowel or bladder function. Pain is improved with medications given in ed. pt is ambulatory with steady gait at this time. plan: improved, to 07/10 plan dc to home with rx for ultram, pt will follow up with pcp on wednesday as scheduled, pt is curently a/o x 3 ambulatory with steady gait. Critical care attestation.: If time is entered above; I have spent that time in minutes in the direct care of this critically ill patient, excluding procedure time. ED Disposition Clinical Impression: Back pain Qualifiers: Back pain location: low back pain Chronicity: acute Back pain laterality: left Sciatica presence: with sciatica Sciatica laterality: sciatica of left side Qualified Code(s): M54.42 - Lumbago with sciatica, left side Disposition: TO HOME OR SELFCARE Is pt being admited?: No Does the pt Need Aspirin: No Condition: Stable Instructions: Low Back Strain (ED), Chronic Back Pain (ED) Prescriptions: traMADoL [Ultram] 50 mg PO Q6HR PRN #12 tablet PRN Reason: Pain Referrals: JOHN WHELAN MD [Staff Physician] - 3-5 Days Forms: Work/School Release Form(ED) Time of Disposition: 07:08
[2019-04-22 07:16] VITALS: BP 147/67
== END 2019-04-22 07:15 | disposition home or self-care (01) ==
LOC: ED 02:29
DX: M54.42 Lumbago with sciatica, left side (principal); G89.29 Other chronic pain; I13.0 Hypertensive heart and chronic kidney disease with heart failure and stage 1 through stage 4 chronic kidney disease, or unspecified chronic kidney disease; I50.9 Heart failure, unspecified; N18.9 Chronic kidney disease, unspecified; K21.9 Gastro-esophageal reflux disease without esophagitis; J44.9 Chronic obstructive pulmonary disease, unspecified; F25.9 Schizoaffective disorder, unspecified; I48.91 Unspecified atrial fibrillation; F17.200 Nicotine dependence, unspecified, uncomplicated; Z88.5 Allergy status to narcotic agent; Z88.2 Allergy status to sulfonamides; Z79.899 Other long term (current) drug therapy; Z79.1 Long term (current) use of non-steroidal anti-inflammatories (NSAID); Z90.49 Acquired absence of other specified parts of digestive tract; Z90.710 Acquired absence of both cervix and uterus
CPT/HCPCS: 96372; 99282; J1885; J7512

== ENCOUNTER 2019-05-24 13:41 | Emergency (ER) | payer MEDICARE ==
[2019-05-24] MEDS ORDERED: ASPIRIN 325 MG TAB PO ONE (13:59)
--- NOTE | 2019-05-24 14:18 | XRay Report ---
CHEST 2 VIEWS INDICATION: Chest Pain. COMPARISON: 04/05/2019. FINDINGS: Support devices: None. Heart: Within normal limits. Lungs/Pleura: Stable mild interstitial thickening. No significant pleural effusion. IMPRESSION: No acute findings. Signer Name: Barrett Laura MD Signed: 05/24/2019 2:13 PM Workstation Name: [id number]
[2019-05-24 15:51] LABS: Basophils % (Auto) 0.7 % (0.0-1.8); Eosinophils # (Auto) 0.2 K/mm3 (0.0-0.4); Eosinophils % (Auto) 2.7 % (0.0-4.3); Hematocrit 35.7 % (30.3-42.9); Hemoglobin 11.8 gm/dl (10.1-14.3); Lymphocytes # (Auto) 2.4 K/mm3 (1.2-5.4); Lymphocytes % (Auto) 39.6 % (13.4-35.0); Mean Corpuscular HGB Conc 33 % (30-34); Mean Corpuscular Volume 89 fl (79-97); Monocytes # (Auto) 0.6 K/mm3 (0.0-0.8); Monocytes % (Auto) 9.5 % (0.0-7.3); Platelet Count 335 K/mm3 (140-440); Red Blood Count 4.02 M/mm3 (3.65-5.03); Red Cell Distribution Width 16.6 % (13.2-15.2)
[2019-05-24 16:13] LABS: BUN/Creatinine Ratio 12; Blood Urea Nitrogen 24 mg/dL (7-17); Hemolysis Index 6
[2019-05-24 21:15] VITALS: BP 181/60
[2019-05-24] MEDS ORDERED: ACETAMINOPHEN 325 MG TAB PO ONE (21:37)
[2019-05-24] MEDS ORDERED: FAMOTIDINE 20 MG TAB PO ONE (21:37)
--- NOTE | 2019-05-24 21:41 | Emergency Department Report ---
ED General Adult HPI - General Chief complaint: Chest Pain Stated complaint: CHEST PAIN Time Seen by Provider: 05/24/19 20:48 Source: patient, RN notes reviewed, old records reviewed Mode of arrival: Wheelchair Limitations: No Limitations - History of Present Illness Initial comments: Cardiology: Dr Davenport Past medical history: Bipolar disease, chronic tobacco abuse, chronic depression, history of systemic atrial fibrillation, status post ablation per formed in [facility] earlier on this year, currently not on systemic anticoagulation. No history of heart disease or cardiomyopathy, had a negative nuclear stress test performed in [place] earlier on this year, negative for acute disease. Has occasional admissions to this hospital for chest wall pain. Seen by her private broadcast operations director last month, Dr. Davenport who after by weight and the patient recommended that the chest pain is atypical, likely musculoskeletal, and no further cardiac workup is indicated. The patient is a 64-year-old female presenting with the complaint of central and left-sided chest wall pain, that moves up to her throat, similar to prior episodes of pain. The pain lasted for 4 hours. The pain did not radiate to the back, arms and neck. There is no vomiting or diaphoresis. The patient denies headache, posterior neck pain, lower abdominal pain, recent travel, recent surgery, recent immobilization. Patient has had multiple evaluations at this hospital for similar symptoms, had a low probability nuclear medicine study February 2019, had negative DVT study [place] [id number]. In addition, she was admitted last month for chest wall pain, and conservative cardiac management was recommended by her broadcast operations director of record. -: Gradual Location: chest Radiation: other Severity scale (0 -10): 6 Quality: aching Consistency: now resolved Improves with: rest Worsens with: other (palpation) - Related Data Home Medications Medication Instructions Recorded Confirmed Last Taken traZODone [Desyrel] 50 mg PO QHS 08/09/13 04/05/19 04/05/14 ARIPiprazole [Abilify TAB] 10 mg PO DAILY 03/23/14 04/05/19 04/06/14 Oxybutynin [Ditropan] 5 mg PO DAILY 04/06/14 04/05/19 04/06/14 carvediloL [Coreg] 6.25 mg PO DAILY 04/06/14 04/05/19 04/06/14 Budesonide/Formoterol Fumarate 10.2 gm IH Q4H 03/10/19 04/05/19 03/10/19 [Symbicort 160-4.5 Mcg Inhaler] Chlorpheniramine/Dextromethorp 1 each PO Q6HR 03/10/19 04/05/19 03/10/19 [Cough-Cold Tablet] Citalopram [Celexa] 10 mg PO QDAY 03/10/19 04/05/19 03/10/19 Pantoprazole [Protonix TAB] 40 mg PO QDAY 03/10/19 04/05/19 03/10/19 allopurinoL [Zyloprim] 100 mg PO QDAY 03/10/19 04/05/19 03/10/19 Depakote ER 250 mg PO BID 03/27/19 04/05/19 Unknown hydrALAZINE 25 mg PO TID 03/27/19 04/05/19 Unknown methOCARBAMOL 500 mg PO Q6HR PRN 03/27/19 04/05/19 Unknown Previous Rx's Medication Instructions Recorded Last Taken Type Fluticasone [Flonase] 100 mcg NS QDAY #1 bottle 03/28/19 Unknown Rx AtorvaSTATin [Lipitor] 40 mg PO QHS #30 tablet 04/07/19 Unknown Rx traMADoL [Ultram] 50 mg PO Q6HR PRN #12 tablet 04/22/19 Unknown Rx Allergies Allergy/AdvReac Type Severity Reaction Status Date / Time codeine Allergy Rash Verified 07/11/13 09:12 Sulfa (Sulfonamide Allergy Rash Verified 07/11/13 09:12 Antibiotics) lisinopril AdvReac Unknown Verified 04/05/19 18:48 ED Review of Systems ROS: Stated complaint: CHEST PAIN Other details as noted in HPI Constitutional: denies: fever Eyes: denies: eye discharge ENT: denies: congestion Respiratory: denies: wheezing Cardiovascular: chest pain. denies: syncope Gastrointestinal: denies: vomiting Musculoskeletal: myalgia Skin: denies: lesions Neurological: denies: confusion Hematological/Lymphatic: denies: easy bleeding ED Past Medical Hx - Past Medical History Hx Hypertension: Yes Hx Heart Attack/AMI: Yes Hx Congestive Heart Failure: Yes Hx GERD: Yes Hx Renal Disease: Yes (ckd) Hx Arthritis: Yes (Osteo) Hx Psychiatric Treatment: Yes (SCHIZO-AFFECTIVE) Hx COPD: Yes Additional medical history: AFIB, bells palsy, back pain - Surgical History Hx Cholecystectomy: Yes Additional Surgical History: Cholecystectomy and hysterectomy, rt roary cuff, heart ablation - Social History Smoking Status: Current Some Day Smoker Substance Use Type: None - Medications Home Medications: Home Medications Medication Instructions Recorded Confirmed Last Taken Type traZODone [Desyrel] 50 mg PO QHS 08/09/13 04/05/19 04/05/14 History ARIPiprazole [Abilify TAB] 10 mg PO DAILY 03/23/14 04/05/19 04/06/14 History Oxybutynin [Ditropan] 5 mg PO DAILY 04/06/14 04/05/19 04/06/14 History carvediloL [Coreg] 6.25 mg PO DAILY 04/06/14 04/05/19 04/06/14 History Budesonide/Formoterol Fumarate 10.2 gm IH Q4H 03/10/19 04/05/19 03/10/19 History [Symbicort 160-4.5 Mcg Inhaler] Chlorpheniramine/Dextromethorp 1 each PO Q6HR 03/10/19 04/05/19 03/10/19 History [Cough-Cold Tablet] Citalopram [Celexa] 10 mg PO QDAY 03/10/19 04/05/19 03/10/19 History Pantoprazole [Protonix TAB] 40 mg PO QDAY 03/10/19 04/05/19 03/10/19 History allopurinoL [Zyloprim] 100 mg PO QDAY 03/10/19 04/05/19 03/10/19 History Depakote ER 250 mg PO BID 03/27/19 04/05/19 Unknown History hydrALAZINE 25 mg PO TID 03/27/19 04/05/19 Unknown History methOCARBAMOL 500 mg PO Q6HR PRN 03/27/19 04/05/19 Unknown History Fluticasone [Flonase] 100 mcg NS QDAY #1 bottle 03/28/19 04/05/19 Unknown Rx AtorvaSTATin [Lipitor] 40 mg PO QHS #30 tablet 04/07/19 Unknown Rx traMADoL [Ultram] 50 mg PO Q6HR PRN #12 tablet 04/22/19 Unknown Rx ED Physical Exam - General Limitations: No Limitations, Other (chaperoned by ER electronic bench technician Carol Condon) General appearance: alert, in no apparent distress - Head Head exam: Present: atraumatic, normocephalic - Eye Eye exam: Present: normal appearance, EOMI. Absent: nystagmus - ENT ENT exam: Present: normal exam, normal orophraynx, mucous membranes moist, normal external ear exam - Neck Neck exam: Present: normal inspection, full ROM. Absent: tenderness, meningismus - Respiratory Respiratory exam: Present: normal lung sounds bilaterally, chest wall tenderness. Absent: respiratory distress - Cardiovascular Cardiovascular Exam: Present: regular rate, normal rhythm, normal heart sounds. Absent: bradycardia, tachycardia, irregular rhythm, systolic murmur, diastolic murmur, rubs, gallop - GI/Abdominal GI/Abdominal exam: Present: soft. Absent: distended, tenderness, guarding, rebound, rigid, pulsatile mass - Extremities Exam Extremities exam: Present: normal inspection, full ROM, other (2+ pulses noted in the bilateral upper and lower extremities. The pelvis is stable. There is no long bony tenderness. The muscular compartments are soft. There is no redness, pus, streaking or erythema.). Absent: calf tenderness - Back Exam Back exam: Present: normal inspection, full ROM. Absent: tenderness, CVA tenderness (R), CVA tenderness (L), paraspinal tenderness, vertebral tenderness - Neurological Exam Neurological exam: Present: alert, oriented X3, normal gait, other (there is no facial droop. The tongue is midline. Extraocular movements are intact bilaterally. Speaking in full sentences. Hearing is grossly intact. 5 out of 5 strength bilateral upper and lower extremities. Sensation is intact to light touch bilateral upper and lower extremities.). Absent: motor sensory deficit - Psychiatric Psychiatric exam: Present: anxious - Skin Skin exam: Present: warm, dry, intact, normal color. Absent: rash ED Course Vital Signs 05/24/19 05/24/19 05/24/19 13:56 21:13 21:14 Temperature 97.5 F L 97.9 F Pulse Rate 72 67 Respiratory 16 18 22 Rate Blood Pressure 197/68 Blood Pressure 181/60 [Right] O2 Sat by Pulse 100 98 Oximetry ED Medical Decision Making - Lab Data Result diagrams: 05/24/19 15:30 05/24/19 15:30 Vital Signs 05/24/19 05/24/19 05/24/19 13:56 21:13 21:14 Temperature 97.5 F L 97.9 F Pulse Rate 72 67 Respiratory 16 18 22 Rate Blood Pressure 197/68 Blood Pressure 181/60 [Right] O2 Sat by Pulse 100 98 Oximetry Lab Results 05/24/19 05/24/19 05/24/19 Range/Units 15:30 15:30 17:01 WBC 6.0 (4.5-11.0) K/mm3 RBC 4.02 (3.65-5.03) M/mm3 Hgb 11.8 (10.1-14.3) gm/dl Hct 35.7 (30.3-42.9) % MCV 89 (79-97) fl MCH 29 (28-32) pg MCHC 33 (30-34) % RDW 16.6 H (13.2-15.2) % Plt Count 335 (140-440) K/mm3 Lymph % (Auto) 39.6 H (13.4-35.0) % [place] % (Auto) 9.5 H (0.0-7.3) % Eos % (Auto) 2.7 (0.0-4.3) % Baso % (Auto) 0.7 (0.0-1.8) % Lymph # 2.4 (1.2-5.4) K/mm3 [place] # 0.6 (0.0-0.8) K/mm3 Eos # 0.2 (0.0-0.4) K/mm3 Baso # 0.0 (0.0-0.1) K/mm3 Seg Neutrophils % 47.5 (40.0-70.0) % Seg Neutrophils # 2.9 (1.8-7.7) K/mm3 Sodium 141 (137-145) mmol/L Potassium 4.3 (3.6-5.0) mmol/L Chloride 104.4 (98-107) mmol/L Carbon Dioxide 21 L (22-30) mmol/L Anion Gap 20 mmol/L BUN 24 H (7-17) mg/dL Creatinine 2.0 H (0.7-1.2) mg/dL Estimated GFR 30 ml/min BUN/Creatinine Ratio 12 % Glucose 97 (65-100) mg/dL Calcium 9.0 (8.4-10.2) mg/dL Troponin T < 0.010 < 0.010 (0.00-0.029) ng/mL - EKG Data -: EKG Interpreted by Me EKG shows normal: sinus rhythm - EKG Data 05/24/19 21:40 Both EKGs today are unchanged from prior EKG from March 2019. Today's EKG shows a sinus rhythm, 68 bpm, there is a left axis deviation, there is a left anterior fascicular block, there is poor R-wave progression, the EKG is not consistent with ST elevation myocardial infarction. EKG #2 is unchanged from prior. Both EKGs unchanged from prior EKG. - Radiology Data Radiology results: pending, report reviewed, image reviewed Print Report Referring Physician: RACHEL GARZON Patient Name: FRANCIA COATS Date of : 1955 Sex: Female Report Date: 2019-05-24 Report Status: [place] [address] XRay Report Signed Patient: FRANCIA COATS MR#: [id number] : 1955 Acct:[id number] Age/Sex: 64 / F ADM Date: 05/24/19 Loc: ED Attending Dr: Ordering Physician: RACHEL GARZON MD Date of Service: 05/24/19 Procedure(s): XR chest routine 2V Accession Number(s): [id number] cc: RACHEL GARZON MD Fluoro Time In Minutes: CHEST 2 VIEWS INDICATION: Chest Pain. COMPARISON: 04/05/2019. FINDINGS: Support devices: None. Heart: Within normal limits. Lungs/Pleura: Stable mild interstitial thickening. No significant pleural effusion. IMPRESSION: No acute findings. Signer Name: Barrett Laura MD Signed: 05/24/2019 2:13 PM Workstation Name: [id number] Transcribed By: JUDI Dictated By: Barrett Laura MD Electronically Authenticated By: Barrett Laura MD Signed Date/Time: 05/24/19 1413 - Medical Decision Making Differential diagnosis, including but not limited to: GERD, gastritis, hiatal hernia, costochondritis\ Assessment and plan: 64-year-old female with reproducible chest wall pain, EKG unchanged 2, troponin negative 2, recent negative nuclear cardiac stress test, seen by cardiology last month, who did not recommend any further ischemic workup. Patient is afebrile with reassuring vital signs with the exception of chronic hypertension. She was recently evaluated for possible DVT and pulmonary embolism in February. She is not tachycardic, tachypneic or hypoxic, I find her to be low risk by well's criteria. The patient has been observed in this department for hours without clinical decompensation. She is resting comfortably, and while occasionally anxious, otherwise does not appear to be in any acute distress. Does not meet criteria for hospitalization, she can closely follow up with her outpatient primary care doctor or broadcast operations director. Renal insufficiency is chronic when compared to baseline. Critical care attestation.: If time is entered above; I have spent that time in minutes in the direct care of this critically ill patient, excluding procedure time. ED Disposition Clinical Impression: Chest wall pain, CKD (chronic kidney disease) Disposition: TO HOME OR SELFCARE Is pt being admited?: No Does the pt Need Aspirin: No Condition: Stable Instructions: Chest Pain (ED) Additional Instructions: Rest, avoid heavy lifting, and avoid strenuous physical activities. Patient may take [id number] Tylenol, 650 mg by mouth, every 4-6 hours as needed for pain, alternating with Pepcid, 20 mg by mouth, every 12 hours as needed for pain. Avoid consumption of Motrin, ibuprofen, Naprosyn, Aleve, heavy and spicy foods. Follow-up with the primary care doctor or broadcast operations director within the next week. Follow up with the primary care doctor or kidney doctor for chronic renal insufficiency within the next month. Return to the emergency room right away with new, worsened or different symptoms, or symptoms not present on initial emergency room evaluation. Referrals: GRISEL RUBY MD [Staff Physician] - 7-10 days CATRACHITO DAVENPORT MD [Staff Physician] - as needed
== END 2019-05-24 22:01 | disposition home or self-care (01) ==
LOC: ED 13:41
DX: I12.9 Hypertensive chronic kidney disease with stage 1 through stage 4 chronic kidney disease, or unspecified chronic kidney disease (principal); N18.9 Chronic kidney disease, unspecified; I21.9 Acute myocardial infarction, unspecified; I50.9 Heart failure, unspecified; K21.9 Gastro-esophageal reflux disease without esophagitis; M19.90 Unspecified osteoarthritis, unspecified site; F20.9 Schizophrenia, unspecified; J44.9 Chronic obstructive pulmonary disease, unspecified; F17.200 Nicotine dependence, unspecified, uncomplicated; Z97.10 Presence of artificial limb (complete) (partial), unspecified; Z90.49 Acquired absence of other specified parts of digestive tract; Z98.890 Other specified postprocedural states; Z79.899 Other long term (current) drug therapy; Z88.4 Allergy status to anesthetic agent; Z88.2 Allergy status to sulfonamides; Z88.8 Allergy status to other drugs, medicaments and biological substances
CPT/HCPCS: 36415; 71046; 80048; 84484; 85025; 93005; 93010

== ENCOUNTER 2019-07-17 03:11 | Inpatient (IN) | payer MEDICARE ==
[2019-07-17] MEDS ORDERED: ASPIRIN 325 MG TAB PO ONE (03:28)
--- NOTE | 2019-07-17 04:11 | XRay Report ---
CHEST 2 VIEWS INDICATION / CLINICAL INFORMATION: Chest Pain. COMPARISON: 05/24/2019 FINDINGS: SUPPORT DEVICES: None. HEART / MEDIASTINUM: No significant abnormality. LUNGS / PLEURA: There is mild increase in the interstitial markings bilaterally suggesting mild edema . .No pneumothorax. ADDITIONAL FINDINGS: No significant additional findings. IMPRESSION: 1. Mild increase in interstitial markings suggesting mild edema. Signer Name: Varnu Dunne MD Signed: 07/17/2019 4:07 AM Workstation Name: [id number]
[2019-07-17 04:15] LABS: Basophils # (Auto) 0.1 K/mm3 (0.0-0.1); Basophils % (Auto) 0.8 % (0.0-1.8); Eosinophils # (Auto) 0.3 K/mm3 (0.0-0.4); Eosinophils % (Auto) 4.1 % (0.0-4.3); Hematocrit 34.6 % (30.3-42.9); Hemoglobin 11.1 gm/dl (10.1-14.3); Lymphocytes # (Auto) 3.1 K/mm3 (1.2-5.4); Lymphocytes % (Auto) 45.2 % (13.4-35.0); Mean Corpuscular HGB Conc 32 % (30-34); Mean Corpuscular Volume 89 fl (79-97); Monocytes # (Auto) 0.7 K/mm3 (0.0-0.8); Monocytes % (Auto) 10.3 % (0.0-7.3); Platelet Count 311 K/mm3 (140-440); Red Blood Count 3.87 M/mm3 (3.65-5.03); Red Cell Distribution Width 15.1 % (13.2-15.2)
[2019-07-17 04:33] LABS: BUN/Creatinine Ratio 11; Blood Urea Nitrogen 21 mg/dL (7-17); Calcium 8.4 mg/dL (8.4-10.2); Hemolysis Index 1
[2019-07-17] MEDS ORDERED: FUROSEMIDE 40 MG/4 ML INJ IV ONE (06:24)
[2019-07-17] MEDS ORDERED: IPRATROPIUM/ALBUTEROL SULFATE 3 ML AMPUL.NEB IH ONE (06:24)
[2019-07-17] MEDS ORDERED: methylPREDNISolone Sod Succinate 125 MG/2 ML INJ IV ONE (06:24)
--- NOTE | 2019-07-17 06:46 | Emergency Department Report ---
ED Shortness of Breath HPI - General Chief Complaint: Dyspnea/Respdistress Stated Complaint: VALERIO Time Seen by Provider: 07/17/19 06:13 Source: patient, EMS, old records reviewed (Echo 03/25/2090 EF of 60 to 65%. Neg stress test in [place] 01/2019 as per med record) Mode of arrival: Ambulatory Limitations: No Limitations - History of Present Illness Initial Comments: 64-year-old female with a past medical history of chronic kidney disease, schizoaffective disorder, paroxysmal atrial fibrillation currently on Eliquis, CHF, COPD, GERD, and hypertension presents to the hospital with complaints of shortness of breath for the past week worsening today. Patient states she had cough and cold symptoms with subjective fever last week. She continues to have a dry cough but today shortness of breath worsened and was not improved with 4 nebulizer treatments prior to arrival. Patient endorses worsening in her baseline 3 pillow orthopnea. Patient also complains of chest pressure while lying supine. No calf tenderness or leg edema reported. Translator: Dr. Richards - Related Data Home Medications Medication Instructions Recorded Confirmed Last Taken traZODone [Desyrel] 50 mg PO QHS 08/09/13 04/05/19 04/05/14 ARIPiprazole [Abilify TAB] 10 mg PO DAILY 03/23/14 04/05/19 04/06/14 Oxybutynin [Ditropan] 5 mg PO DAILY 04/06/14 04/05/19 04/06/14 carvediloL [Coreg] 6.25 mg PO DAILY 04/06/14 04/05/19 04/06/14 Budesonide/Formoterol Fumarate 10.2 gm IH Q4H 03/10/19 04/05/19 03/10/19 [Symbicort 160-4.5 Mcg Inhaler] Chlorpheniramine/Dextromethorp 1 each PO Q6HR 03/10/19 04/05/19 03/10/19 [Cough-Cold Tablet] Citalopram [Celexa] 10 mg PO QDAY 03/10/19 04/05/19 03/10/19 Pantoprazole [Protonix TAB] 40 mg PO QDAY 03/10/19 04/05/19 03/10/19 allopurinoL [Zyloprim] 100 mg PO QDAY 03/10/19 04/05/19 03/10/19 Depakote ER 250 mg PO BID 03/27/19 04/05/19 Unknown hydrALAZINE 25 mg PO TID 03/27/19 04/05/19 Unknown methOCARBAMOL 500 mg PO Q6HR PRN 03/27/19 04/05/19 Unknown Previous Rx's Medication Instructions Recorded Last Taken Type Fluticasone [Flonase] 100 mcg NS QDAY #1 bottle 03/28/19 Unknown Rx AtorvaSTATin [Lipitor] 40 mg PO QHS #30 tablet 04/07/19 Unknown Rx traMADoL [Ultram] 50 mg PO Q6HR PRN #12 tablet 04/22/19 Unknown Rx Allergies Allergy/AdvReac Type Severity Reaction Status Date / Time codeine Allergy Rash Verified 07/11/13 09:12 Sulfa (Sulfonamide Allergy Rash Verified 07/11/13 09:12 Antibiotics) lisinopril AdvReac Unknown Verified 04/05/19 18:48 ED Review of Systems ROS: Stated complaint: VALERIO Other details as noted in HPI Comment: All other systems reviewed and negative ED Past Medical Hx - Past Medical History Previous Medical History?: Yes Hx Hypertension: Yes Hx Heart Attack/AMI: Yes Hx Congestive Heart Failure: Yes Hx GERD: Yes Hx Renal Disease: Yes (ckd) Hx Arthritis: Yes (Osteo) Hx Psychiatric Treatment: Yes (SCHIZO-AFFECTIVE) Hx COPD: Yes Additional medical history: AFIB, bells palsy, back pain - Surgical History Past Surgical History?: Yes Hx Cholecystectomy: Yes Additional Surgical History: Cholecystectomy and hysterectomy, rt roary cuff, heart ablation - Social History Smoking Status: Former Smoker Substance Use Type: None - Medications Home Medications: Home Medications Medication Instructions Recorded Confirmed Last Taken Type traZODone [Desyrel] 50 mg PO QHS 08/09/13 04/05/19 04/05/14 History ARIPiprazole [Abilify TAB] 10 mg PO DAILY 03/23/14 04/05/19 04/06/14 History Oxybutynin [Ditropan] 5 mg PO DAILY 04/06/14 04/05/19 04/06/14 History carvediloL [Coreg] 6.25 mg PO DAILY 04/06/14 04/05/19 04/06/14 History Budesonide/Formoterol Fumarate 10.2 gm IH Q4H 03/10/19 04/05/19 03/10/19 History [Symbicort 160-4.5 Mcg Inhaler] Chlorpheniramine/Dextromethorp 1 each PO Q6HR 03/10/19 04/05/19 03/10/19 History [Cough-Cold Tablet] Citalopram [Celexa] 10 mg PO QDAY 03/10/19 04/05/19 03/10/19 History Pantoprazole [Protonix TAB] 40 mg PO QDAY 03/10/19 04/05/19 03/10/19 History allopurinoL [Zyloprim] 100 mg PO QDAY 03/10/19 04/05/19 03/10/19 History Depakote ER 250 mg PO BID 03/27/19 04/05/19 Unknown History hydrALAZINE 25 mg PO TID 03/27/19 04/05/19 Unknown History methOCARBAMOL 500 mg PO Q6HR PRN 03/27/19 04/05/19 Unknown History Fluticasone [Flonase] 100 mcg NS QDAY #1 bottle 03/28/19 04/05/19 Unknown Rx AtorvaSTATin [Lipitor] 40 mg PO QHS #30 tablet 04/07/19 Unknown Rx traMADoL [Ultram] 50 mg PO Q6HR PRN #12 tablet 04/22/19 Unknown Rx ED Physical Exam - General Limitations: No Limitations - Other Other exam information: General: No acute distress Head: Atraumatic Eyes: normal appearance ENT: Moist mucous membranes Neck: Normal appearance, no midline tenderness Chest: Clear to auscultation bilaterally, no tachypnea or accessory muscle use CV: Regular rate and rhythm Abdomen: Soft, normal bowel sounds, nontender, nondistended, no rebound or guarding Back: Normal inspection Extremity: Normal inspection, full range of motion, no calf tenderness or leg edema Neuro: Alert O x 3, no facial asymmetry, speech clear, no gross motor sensory deficit Psych: Appropriate behavior Skin: No rash ED Course Vital Signs 07/17/19 07/17/19 07/17/19 03:14 04:37 06:30 Temperature 97.9 F Pulse Rate 76 74 Pulse Rate [ 63 Anterior Bilateral Throughout] Respiratory 18 16 Rate Respiratory 19 Rate [Anterior Bilateral Throughout] Blood Pressure 158/78 Blood Pressure 140/77 [Left] O2 Sat by Pulse 98 97 Oximetry - Reevaluation(s) Reevaluation #1: 07/17/19 06:49 Patient has clear breath sounds without wheezing on exam or signs of respiratory distress. Patient complains of feel like her chest is tight and has some mild shortness of breath reports continued orthopnea. Patient will be treated with Lasix 40 mg IV based on mild edema chest x-ray and provided DuoNeb and steroids. ED Medical Decision Making - Lab Data Result diagrams: 07/17/19 03:37 07/17/19 03:37 Lab Results 07/17/19 07/17/19 07/17/19 Range/Units 03:37 03:37 06:09 WBC 6.9 (4.5-11.0) K/mm3 RBC 3.87 (3.65-5.03) M/mm3 Hgb 11.1 (10.1-14.3) gm/dl Hct 34.6 (30.3-42.9) % MCV 89 (79-97) fl MCH 29 (28-32) pg MCHC 32 (30-34) % RDW 15.1 (13.2-15.2) % Plt Count 311 (140-440) K/mm3 Lymph % (Auto) 45.2 H (13.4-35.0) % [place] % (Auto) 10.3 H (0.0-7.3) % Eos % (Auto) 4.1 (0.0-4.3) % Baso % (Auto) 0.8 (0.0-1.8) % Lymph # 3.1 (1.2-5.4) K/mm3 [place] # 0.7 (0.0-0.8) K/mm3 Eos # 0.3 (0.0-0.4) K/mm3 Baso # 0.1 (0.0-0.1) K/mm3 Seg Neutrophils % 39.6 L (40.0-70.0) % Seg Neutrophils # 2.7 (1.8-7.7) K/mm3 Sodium 141 (137-145) mmol/L Potassium 4.1 (3.6-5.0) mmol/L Chloride 106.9 (98-107) mmol/L Carbon Dioxide 19 L (22-30) mmol/L Anion Gap 19 mmol/L BUN 21 H (7-17) mg/dL Creatinine 1.9 H (0.7-1.2) mg/dL Estimated GFR 32 ml/min BUN/Creatinine Ratio 11 % Glucose 99 (65-100) mg/dL Calcium 8.4 (8.4-10.2) mg/dL Troponin T < 0.010 < 0.010 (0.00-0.029) ng/mL NT-Pro-B Natriuret Pep (0-900) pg/mL 07/17/19 Range/Units 06:09 WBC (4.5-11.0) K/mm3 RBC (3.65-5.03) M/mm3 Hgb (10.1-14.3) gm/dl Hct (30.3-42.9) % MCV (79-97) fl MCH (28-32) pg MCHC (30-34) % RDW (13.2-15.2) % Plt Count (140-440) K/mm3 Lymph % (Auto) (13.4-35.0) % [place] % (Auto) (0.0-7.3) % Eos % (Auto) (0.0-4.3) % Baso % (Auto) (0.0-1.8) % Lymph # (1.2-5.4) K/mm3 [place] # (0.0-0.8) K/mm3 Eos # (0.0-0.4) K/mm3 Baso # (0.0-0.1) K/mm3 Seg Neutrophils % (40.0-70.0) % Seg Neutrophils # (1.8-7.7) K/mm3 Sodium (137-145) mmol/L Potassium (3.6-5.0) mmol/L Chloride (98-107) mmol/L Carbon Dioxide (22-30) mmol/L Anion Gap mmol/L BUN (7-17) mg/dL Creatinine (0.7-1.2) mg/dL Estimated GFR ml/min BUN/Creatinine Ratio % Glucose (65-100) mg/dL Calcium (8.4-10.2) mg/dL Troponin T (0.00-0.029) ng/mL NT-Pro-B Natriuret Pep 6517 H (0-900) pg/mL - EKG Data -: EKG Interpreted by Mi EKG shows normal: sinus rhythm, ST-T waves (no stemi) Rate: normal (73) - EKG Data When compared to previous EKG there are: no significant change - Radiology Data Radiology results: report reviewed CHEST 2 VIEWS INDICATION / CLINICAL INFORMATION: Chest Pain. COMPARISON: 05/24/2019 FINDINGS: SUPPORT DEVICES: None. HEART / MEDIASTINUM: No significant abnormality. LUNGS / PLEURA: There is mild increase in the interstitial markings bilaterally suggesting mild edema. .No pneumothorax. ADDITIONAL FINDINGS: No significant additional findings. IMPRESSION: 1. Mild increase in interstitial markings suggesting mild edema. - Medical Decision Making Patient presents to the hospital with shortness of breath with signs and symptoms of CHF exacerbation. Patient provided bronchodilators and steroids in the ED for COPD and Lasix IV with urine output in the ED. Patient reports a hi story of CHF however, previous chest x-rays were negative for pulmonary edema and last echo in February showed an EF of 60 to 65% and patient also has aortic stenosis patient also complains of chest pain with negative stress test last year, unchanged EKG today, and troponin negative x2. Patient states she is compliant with her Eliquis for paroxysmal atrial fibrillation and is currently in sinus rhythm. Case discussed with inspector screen printing Dr. Richards who will consult during admission. Hospitalist informed for admission As per medical record patient has a history of alcohol and drug abuse. UDS has been ordered and pending at dispo - Differential Diagnosis CHF, COPD, pneumonia, bronchitis Critical Care Time: No Critical care attestation.: If time is entered above; I have spent that time in minutes in the direct care of this critically ill patient, excluding procedure time. ED Disposition Clinical Impression: CHF exacerbation, COPD (chronic obstructive pulmonary disease), Chest pain, Anticoagulant long-term use, Paroxysmal atrial fibrillation, CKD (chronic kidney disease) Disposition: 09 OP ADMIT IP TO THIS HOSP Is pt being admited?: Yes Does the pt Need Aspirin: No (on eliquis) Time of Disposition: 07:48 (Dr Ferrara/jori/[facility])
[2019-07-17] MEDS ORDERED: ASPIRIN 325 MG TAB ONE (08:40)
--- NOTE | 2019-07-17 10:14 | History and Physical Report ---
History of Present Illness Date of examination: 07/17/19 Date of admission: 07/17/19 07:53 Chief complaint: Worsening shortness of breath History of present illness: 64-year-old female patient with significant past medical history of chronic kidney disease, schizoaffective disorder, paroxysmal atrial fibrillation currently on Eliquis, CHF, COPD, GERD, and hypertension presents to the hospital with worsening shortness of breath for 1 week duration Patient claims compliance with medications. Patient also complains of upper respiratory symptoms and cough nonproductive, wheezing did not improve with nebulizer treatments Patient also complains of orthopnea and worsening effort tolerance At the time of my evaluation patient feels slightly better after treatment in the emergency room Patient denies chest pain nausea vomiting or abdominal pain Past History Past Medical History: atrial fib, heart failure, hypertension, hyperlipidemia, renal failure, other (Schizoaffective disorder) Past Surgical History: Other (Ablation paroxysmal atrial fibrillation) Social history: lives with family, smoking. denies: alcohol abuse, prescription drug abuse Family history: hypertension Medications and Allergies Allergies Allergy/AdvReac Type Severity Reaction Status Date / Time codeine Allergy Rash Verified 07/11/13 09:12 Sulfa (Sulfonamide Allergy Rash Verified 07/11/13 09:12 Antibiotics) lisinopril AdvReac Unknown Verified 04/05/19 18:48 Home Medications Medication Instructions Recorded Confirmed Last Taken Type traZODone [Desyrel] 50 mg PO QHS 08/09/13 07/17/19 04/05/14 History ARIPiprazole [Abilify TAB] 10 mg PO DAILY 03/23/14 07/17/19 04/06/14 History Oxybutynin [Ditropan] 5 mg PO DAILY 04/06/14 07/17/19 04/06/14 History carvediloL [Coreg] 6.25 mg PO DAILY 04/06/14 07/17/19 04/06/14 History Budesonide/Formoterol Fumarate 10.2 gm IH Q4H 03/10/19 07/17/19 03/10/19 History [Symbicort 160-4.5 Mcg Inhaler] Chlorpheniramine/Dextromethorp 1 each PO Q6HR 03/10/19 07/17/19 03/10/19 History [Cough-Cold Tablet] Citalopram [Celexa] 10 mg PO QDAY 03/10/19 07/17/19 03/10/19 History Pantoprazole [Protonix TAB] 40 mg PO QDAY 03/10/19 07/17/19 03/10/19 History allopurinoL [Zyloprim] 100 mg PO QDAY 03/10/19 07/17/19 03/10/19 History Depakote ER 250 mg PO BID 03/27/19 07/17/19 Unknown History hydrALAZINE 25 mg PO TID 03/27/19 07/17/19 Unknown History methOCARBAMOL 500 mg PO Q6HR PRN 03/27/19 07/17/19 Unknown History Fluticasone [Flonase] 100 mcg NS QDAY #1 bottle 03/28/19 07/17/19 Unknown Rx AtorvaSTATin [Lipitor] 40 mg PO QHS #30 tablet 04/07/19 07/17/19 Unknown Rx traMADoL [Ultram] 50 mg PO Q6HR PRN #12 tablet 04/22/19 07/17/19 Unknown Rx Review of Systems Constitutional: fatigue, weakness, no weight loss, no weight gain Ears, nose, mouth and throat: no nasal congestion, no nasal discharge Cardiovascular: orthopnea, shortness of breath, no chest pain Respiratory: cough, shortness of breath, dyspnea on exertion Gastrointestinal: no abdominal pain, no nausea, no vomiting Musculoskeletal: no myalgias, no arthritis Integumentary: no rash, no lesions Neurological: no parathesias, no numbness, no tingling, no seizures Psychiatric: depression, other (Schizoaffective disorder), no anxiety Endocrine: no cold intolerance, no heat intolerance Hematologic/Lymphatic: no easy bruising, no easy bleeding Allergic/Immunologic: no urticaria, no allergic rhinitis Exam - Constitutional Vitals: Temp Pulse Resp BP Pulse Ox 97.9 F 74 15 185/79 96 07/17/19 03:14 07/17/19 09:16 07/17/19 09:16 07/17/19 09:28 07/17/19 09:16 General appearance: Present: mild distress, well-nourished - EENT Eyes: Present: PERRL, EOM intact - Neck Neck: Present: supple, normal ROM - Respiratory Respiratory effort: normal Respiratory: bilateral: diminished, rales, negative: rhonchi, wheezing - Cardiovascular Rhythm: regular Heart Sounds: Present: S1 & S2 - Extremities Extremities: no ischemia Extremity abnormal: edema - Abdominal General gastrointestinal: Present: soft, non-tender, non-distended, normal bowel sounds - Integumentary Integumentary: Present: clear, warm - Musculoskeletal Musculoskeletal: strength equal bilaterally, generalized weakness - Psychiatric Psychiatric: appropriate mood/affect, cooperative - Neurologic Neurologic: CNII-XII intact, moves all extremities Results - Labs CBC & Chem 7: 07/17/19 03:37 07/17/19 03:37 Labs: Abnormal lab results 07/17/19 07/17/19 07/17/19 Range/Units 03:37 03:37 06:09 Lymph % (Auto) 45.2 H (13.4-35.0) % [place] % (Auto) 10.3 H (0.0-7.3) % Seg Neutrophils % 39.6 L (40.0-70.0) % Carbon Dioxide 19 L (22-30) mmol/L BUN 21 H (7-17) mg/dL Creatinine 1.9 H (0.7-1.2) mg/dL NT-Pro-B Natriuret Pep 6517 H (0-900) pg/mL Assessment and Plan --Acute diastolic congestive heart failure[Heart failure with preserved LV function] IV diuretics, input output monitoring; beta-blockers Low-sodium diet, fluid restriction, cardiology evaluation Echocardiogram last 6 months EF 60%, mild aortic stenosis --History of paroxysmal atrial fibrillation; status post ablation Patient no longer on anticoagulation Continue current management cardiology following --Chronic kidney disease stage III; Monitor renal function, avoid nephrotoxins, nephrology evaluation if needed --Hypertension; moderate control Continue current antihypertensives and PRN medications --History of schizoaffective disorder; With depression, continue psych medications psych consult if needed --Ongoing tobacco use; smoking cessation counseling Nicotine patch as needed --DVT prophylaxis; Lovenox Monitor closely and adjust management as needed Follow cardiology evaluation and recommendations Disposition; follow clinically Discharge when medically stable
[2019-07-17] MEDS ORDERED: NON-FORMULARY EACH (Budesonide/Formoterol Fumarate [Symbicort 160-4.5 Mcg Inhaler] 10.2 GM IH SCH (10:30)
[2019-07-17 10:37] LABS: Amphetamine Screen,Urine PRESUMPTIVE NEGATIVE; Benzodiazepines Screen,Urine PRESUMPTIVE NEGATIVE; Cannabinoid Screen,Urine PRESUMPTIVE NEGATIVE; Methadone Screen,Urine PRESUMPTIVE NEGATIVE; Opiate Screen,Urine PRESUMPTIVE NEGATIVE
[2019-07-17 10:49] LABS: Cocaine Screen,Urine PRESUMPTIVE POSITIVE
[2019-07-17] MEDS: hydrALAZINE 25 MG TAB PO SCH ×2 (14:02→22:36)
--- NOTE | 2019-07-17 15:31 | Consultation ---
History of Present Illness Consult date: 07/17/19 Consult reason: congestive heart failure History of present illness: This is a 64-year old woman with chronic tobacco abuse and schizo-affective disorder with depression. She has a history of renal disease and hypertension. She also has a cardiac history of paroxysmal atrial fibrillation status post ablation, no longer on anticoagulation. There is no history of coronary artery disease. 6 months ago while in [place], she had a negative stress test. Her latest echocardiogram showed normal left ventricular systolic function, ejection fraction 60%, mild to moderate concentric left ventricular hypertrophy. There was also mild dilatation of the left atrium, and mild calcific aortic stenosis. Patient presents to the hospital with complaints of shortness of breath, coughs and congestion. There is no lower extremity edema. A chest x-ray reports mild interstitial edema. Labs shows an elevated BNP. ECG is in normal sinus rhythm, no acute ischemic changes. A cardiac consultation has been requested for CHF evaluation. Medications and Allergies Allergies Allergy/AdvReac Type Severity Reaction Status Date / Time codeine Allergy Rash Verified 07/11/13 09:12 Sulfa (Sulfonamide Allergy Rash Verified 07/11/13 09:12 Antibiotics) lisinopril AdvReac Unknown Verified 04/05/19 18:48 Home Medications Medication Instructions Recorded Confirmed Last Taken Type traZODone [Desyrel] 50 mg PO QHS 08/09/13 04/05/19 04/05/14 History ARIPiprazole [Abilify TAB] 10 mg PO DAILY 03/23/14 04/05/19 04/06/14 History Oxybutynin [Ditropan] 5 mg PO DAILY 04/06/14 04/05/19 04/06/14 History carvediloL [Coreg] 6.25 mg PO DAILY 04/06/14 04/05/19 04/06/14 History Budesonide/Formoterol Fumarate 10.2 gm IH Q4H 03/10/19 04/05/19 03/10/19 History [Symbicort 160-4.5 Mcg Inhaler] Chlorpheniramine/Dextromethorp 1 each PO Q6HR 03/10/19 04/05/19 03/10/19 History [Cough-Cold Tablet] Citalopram [Celexa] 10 mg PO QDAY 03/10/19 04/05/19 03/10/19 History Pantoprazole [Protonix TAB] 40 mg PO QDAY 03/10/19 04/05/19 03/10/19 History allopurinoL [Zyloprim] 100 mg PO QDAY 03/10/19 04/05/19 03/10/19 History Depakote ER 250 mg PO BID 03/27/19 04/05/19 Unknown History hydrALAZINE 25 mg PO TID 03/27/19 04/05/19 Unknown History methOCARBAMOL 500 mg PO Q6HR PRN 03/27/19 04/05/19 Unknown History Fluticasone [Flonase] 100 mcg NS QDAY #1 bottle 03/28/19 04/05/19 Unknown Rx AtorvaSTATin [Lipitor] 40 mg PO QHS #30 tablet 04/07/19 Unknown Rx traMADoL [Ultram] 50 mg PO Q6HR PRN #12 tablet 04/22/19 Unknown Rx Active Meds: Active Medications Allopurinol (Zyloprim) 100 mg PO QDAY [facility] Arformoterol Tartrate (Brovana Nebu) 15 mcg IH Q12HRT [facility] Aripiprazole (Aripiprazole) 10 mg PO DAILY [facility] Atorvastatin Calcium (Lipitor) 40 mg PO QHS [facility] Budesonide (Pulmicort) 1 mg IH Q12HRT [facility] Carvedilol (Coreg) 6.25 mg PO DAILY [facility] Citalopram Hydrobromide (Celexa) 10 mg PO QDAY [facility] Divalproex Sodium (Depakote Er) 250 mg PO BID [facility] Fluticasone Propionate (Flonase) 100 mcg NS QDAY [facility] Hydralazine HCl (Apresoline) 25 mg PO TID [facility] Last Admin: 07/17/19 14:02 Dose: 25 mg Documented by: Oxybutynin Chloride (Ditropan) 5 mg PO DAILY [facility] Pantoprazole Sodium (Protonix) 40 mg PO QDAY [facility] Tramadol HCl (Ultram) 50 mg PO Q6HR PRN PRN Reason: PAIN Trazodone HCl (Desyrel) 50 mg PO QHS [facility] Physical Examination Vital Signs Temp Pulse Resp BP Pulse Ox 97.9 F 76 18 158/78 98 07/17/19 03:14 07/17/19 03:14 07/17/19 03:14 07/17/19 03:14 07/17/19 03:14 General appearance: no acute distress HEENT: Positive: PERRL Neck: Positive: trachea midline Cardiac: Positive: Reg Rate and Rhythm Lungs: Positive: Decreased Breath Sounds Neuro: Positive: Grossly Intact Extremities: Absent: edema Results 07/17/19 03:37 07/17/19 03:37 CBC 07/17/19 Range/Units 03:37 WBC 6.9 (4.5-11.0) K/mm3 RBC 3.87 (3.65-5.03) M/mm3 Hgb 11.1 (10.1-14.3) gm/dl Hct 34.6 (30.3-42.9) % Plt Count 311 (140-440) K/mm3 Lymph # 3.1 (1.2-5.4) K/mm3 [place] # 0.7 (0.0-0.8) K/mm3 Eos # 0.3 (0.0-0.4) K/mm3 Baso # 0.1 (0.0-0.1) K/mm3 Comprehensive Metabolic Panel 07/17/19 Range/Units 03:37 Sodium 141 (137-145) mmol/L Potassium 4.1 (3.6-5.0) mmol/L Chloride 106.9 (98-107) mmol/L Carbon Dioxide 19 L (22-30) mmol/L BUN 21 H (7-17) mg/dL Creatinine 1.9 H (0.7-1.2) mg/dL Glucose 99 (65-100) mg/dL Calcium 8.4 (8.4-10.2) mg/dL Assessment and Plan Shortness of breath Hx of schizo-affective disorder with depression Chronic renal failure Hypertension Tobacco abuse Hx of paroxysmal atrial fibrillation s/p ablation per pt while living in [place]; no longer on oral anticoagulation. normal MPI while living in [place] 6 months ago per pt. An echocardiogram done 02/2019 reports normal LVEF, EF 60%. There was also mild dilatation of the left atrium, and mild calcific aortic stenosis.
[2019-07-17] MEDS: traMADol 50 MG TAB PO PRN (16:49)
[2019-07-17] MEDS: GABAPENTIN 300 MG CAP PO SCH ×2 (18:16→22:32)
[2019-07-17] MEDS: BUDESONIDE 0.5 MG/2 ML NEBU IH SCH (21:06)
[2019-07-17] MEDS: ARFORMOTEROL 15 MCG/2 ML NEBU IH SCH (21:06)
[2019-07-17] MEDS: traZODone 50 MG TAB PO SCH (22:35)
[2019-07-17] MEDS: DIVALPROEX ER 250 MG TAB PO SCH (22:36)
[2019-07-18] MEDS: hydrALAZINE 25 MG TAB PO SCH ×3 (08:00→22:20)
[2019-07-18] MEDS: GABAPENTIN 300 MG CAP PO SCH ×3 (08:00→22:20)
[2019-07-18] MEDS: ARFORMOTEROL 15 MCG/2 ML NEBU IH SCH ×2 (09:02→21:53)
[2019-07-18] MEDS: BUDESONIDE 0.5 MG/2 ML NEBU IH SCH ×2 (09:02→21:53)
[2019-07-18] MEDS: PANTOPRAZOLE 40 MG TAB PO SCH (09:41)
[2019-07-18] MEDS: CITALOPRAM 20 MG TAB PO SCH (09:42)
[2019-07-18] MEDS: carvediloL 6.25 MG TAB PO SCH (09:42)
[2019-07-18] MEDS: FLUTICASONE PROPIONATE NASAL SPRAY 16 GM NS SCH (09:43)
[2019-07-18] MEDS: OXYBUTYNIN 5 MG TAB PO SCH (09:43)
[2019-07-18] MEDS: DIVALPROEX ER 250 MG TAB PO SCH ×2 (09:44→22:20)
[2019-07-18] MEDS: ARIPiprazole 10 MG TAB PO SCH (09:44)
[2019-07-18] MEDS: allopurinoL 100 MG TAB PO SCH (09:45)
--- NOTE | 2019-07-18 10:07 | Progress Note ---
Assessment and Plan Heart failure with a preserved ejection fraction Hx of schizo-affective disorder with depression Chronic renal failure Hypertension Tobacco abuse Hx of paroxysmal atrial fibrillation s/p ablation per pt while living in [place]; no longer on oral anticoagulation. normal MPI while living in [place] 6 months ago per pt. Substance abuse An echocardiogram done 02/2019 reports normal LVEF, EF 60%. There was also mild dilatation of the left atrium, and mild calcific aortic stenosis. Subjective Date of service: 07/18/19 Interval history: Patient is resting in bed comfortably. She reports her breathing is better. Objective Vital Signs Temp Pulse Pulse Resp Resp BP Pulse Ox 07/18/19 09:42 86 155/63 07/18/19 09:03 68 18 07/18/19 09:01 99 07/18/19 07:40 97.9 F 77 18 186/77 95 07/18/19 04:16 97.4 F L 72 16 149/61 94 07/17/19 22:36 169/66 07/17/19 21:05 90 20 169/66 96 07/17/19 18:19 97.7 F 87 20 168/61 100 07/17/19 17:23 76 07/17/19 16:22 87 170/65 94 07/17/19 14:02 77 178/76 07/17/19 12:49 100 07/17/19 12:20 87 178/76 98 07/17/19 10:19 72 158/52 100 - Physical Examination General: No Apparent Distress HEENT: Positive: PERRL Neck: Positive: trachea midline Cardiac: Positive: Reg Rate and Rhythm Lungs: Positive: Decreased Breath Sounds Neuro: Positive: Grossly Intact Extremities: Absent: edema
--- NOTE | 2019-07-18 16:52 | Progress Note ---
Assessment and Plan /Acute diastolic congestive heart failure[Heart failure with preserved LV function] IV diuretics, input output monitoring; beta-blockers Low-sodium diet, fluid restriction, cardiology evaluation Echocardiogram last 6 months EF 60%, mild aortic stenosis plan for cardiac cath to further assess for aortic stenosis /Respiratory distress vs dyspnea on exertion -Complains of dyspnea on ambulation but maintaining O2 sat greater than 92% on p ulse ox -Per 2D echo patient has mild aortic stenosis -Cardiology decided for right and left heart cath to further revealed a possible cause for dyspnea /History of paroxysmal atrial fibrillation; status post ablation Patient no longer on anticoagulation Continue current management cardiology following /Chronic kidney disease stage III; Monitor renal function, avoid nephrotoxins, nephrology evaluation for possible cardiac cath /Hypertension; moderate control Continue current antihypertensives and PRN medications /History of schizoaffective disorder; With depression, continue psych medications psych consult if needed /Ongoing tobacco use; smoking cessation counseling Nicotine patch as needed /Cocaine abuse, counselled, UDS is positive for cocaine --DVT prophylaxis; Lovenox Monitor closely and adjust management as needed Follow cardiology evaluation and recommendations Physical exam: GENERAL: well-developed and well-nourished white female lying on bed appeared to be in no discomfort. HEENT: Normocephalic. Atraumatic. No conjunctival congestion or icterus. Patient has moist mucous membranes. NECK: Supple. Trachea midline. CHEST/LUNGS: Clear to auscultated bilaterally, breathing nonlabored. No wheezes crackles or rhonchi. HEART/CARDIOVASCULAR: Regular in rate and rhythm. S1 and S2 positive. ABDOMEN: Abdomen is soft, nontender. Patient has normal bowel sounds. SKIN: There is no rash. Warm and dry. NEURO: No focal motor deficit. Follows command. MUSCULOSKELETAL: No joint effusion or tenderness. EXTRIMITY: No edema, no cyanosis or clubbing. PSYCH: Cooperative. Subjective Date of service: 07/18/19 Interval history: Patient seen and examined. Medical records and medication list reviewed. No acute event overnight noted by the RN. Patient denies any chest pain but complains of difficulty breathing on exertion. Patient is tolerating diet. Discussed plan of care at bedside with patient. Objective - Constitutional Vitals: Vital Signs - 12hr 07/18/19 07/18/19 07/18/19 07:40 09:00 09:01 Temperature 97.9 F Pulse Rate 77 90 Pulse Rate [ 76 Apical] Pulse Rate [ 76 Left Radial] Pulse Rate [ Posterior Bilateral Throughout] Pulse Rate [ 76 Right Radial] Respiratory 18 19 Rate Respiratory Rate [Posterior Bilateral Throughout] Blood Pressure 186/77 O2 Sat by Pulse 95 99 99 Oximetry 07/18/19 07/18/19 07/18/19 09:03 09:42 10:38 Temperature Pulse Rate 86 75 Pulse Rate [ Apical] Pulse Rate [ Left Radial] Pulse Rate [ 68 Posterior Bilateral Throughout] Pulse Rate [ Right Radial] Respiratory Rate Respiratory 18 Rate [Posterior Bilateral Throughout] Blood Pressure 155/63 155/63 O2 Sat by Pulse 96 Oximetry 07/18/19 07/18/19 07/18/19 11:02 12:00 13:23 Temperature 97.9 F Pulse Rate 76 91 H 86 Pulse Rate [ Apical] Pulse Rate [ Left Radial] Pulse Rate [ Posterior Bilateral Throughout] Pulse Rate [ Right Radial] Respiratory 18 Rate Respiratory Rate [Posterior Bilateral Throughout] Blood Pressure 161/60 161/68 O2 Sat by Pulse 99 Oximetry 07/18/19 16:12 Temperature 98.3 F Pulse Rate 77 Pulse Rate [ Apical] Pulse Rate [ Left Radial] Pulse Rate [ Posterior Bilateral Throughout] Pulse Rate [ Right Radial] Respiratory 18 Rate Respiratory Rate [Posterior Bilateral Throughout] Blood Pressure 164/63 O2 Sat by Pulse 96 Oximetry - Labs CBC & Chem 7: 07/17/19 03:37 07/21/19 06:02
[2019-07-18] MEDS: traZODone 50 MG TAB PO SCH (22:20)
[2019-07-19 06:35] LABS: Calcium 8.5 mg/dL (8.4-10.2)
--- NOTE | 2019-07-19 07:37 | Consultation ---
History of Present Illness - Reason for Consult Consult date: 07/19/19 - History of Present Illness This is a 64 year old female with pmh significant for CKD, schizoaffective disorder, paroxysmal atrial fibrillation (on Eliquis), CHF, COPD, GERD, and hypertension who presented to the ED with complaints of worsening shortness of breath over 1 week duration. She also complained of nonproductive cough and wheezing. She states she is compliant with all prescribed medications. At time of consultation she stated she was feeling better and breathing had improved. She denies chest pain, nausea, vomiting, diarrhea, rash, fevers, or chills. She denies use of NSAIDs. Although it appears she has CKD, patient not aware of any history of this and denies outpatient nephrology. She follows cardiac diet but admits that she does not follow fluid restrictions for her CHF. She indulges in occasional alcohol, 6 cigarettes per day, and smokes cocaine a few times per month. She denies family history of kidney disease. Denies personal history of hematuria, kidney stones, frequent urinary tract infections, pain or burning with urination. She does report seeing cardiology regularly on outpatient basis. Nephrology was consulted for further evaluation and treatment of CKD and clearance for angiogram. Past History Past Medical History: atrial fib, heart failure, hypertension, hyperlipidemia, renal failure, other (Schizoaffective disorder) Past Surgical History: Other (Ablation paroxysmal atrial fibrillation) Social history: lives with family, smoking. denies: alcohol abuse, prescription drug abuse Family history: hypertension Medications and Allergies Allergies Allergy/AdvReac Type Severity Reaction Status Date / Time codeine Allergy Rash Verified 07/11/13 09:12 Sulfa (Sulfonamide Allergy Rash Verified 07/11/13 09:12 Antibiotics) lisinopril AdvReac Unknown Verified 04/05/19 18:48 Home Medications Medication Instructions Recorded Confirmed Last Taken Type traZODone [Desyrel] 50 mg PO QHS 08/09/13 07/17/19 04/05/14 History Budesonide/Formoterol Fumarate 10.2 gm IH Q4H 03/10/19 07/17/19 03/10/19 History [Symbicort 160-4.5 Mcg Inhaler] Chlorpheniramine/Dextromethorp 1 each PO Q6HR 10/11/19 02/17/20 10/11/19 History [Cough-Cold Tablet] allopurinoL [Zyloprim] 100 mg PO QDAY 03/10/19 07/17/19 03/10/19 History methOCARBAMOL 500 mg PO Q6HR PRN 03/27/19 07/17/19 Unknown History AtorvaSTATin [Lipitor] 40 mg PO QHS #30 tablet 04/07/19 07/17/19 Unknown Rx traMADoL [Ultram 50 MG tab] 50 mg PO Q6HR PRN #12 tablet 04/22/19 07/17/19 Unknown Rx ARIPiprazole [Abilify TAB] 10 mg PO DAILY #7 07/18/19 Unknown Rx Aspirin EC [Halfprin EC] 81 mg PO DAILY #30 tablet. 07/18/19 Unknown Rx Citalopram [Celexa] 10 mg PO QDAY #7 07/18/19 Unknown Rx Depakote ER 250 mg PO BID #14 07/18/19 Unknown Rx Fluticasone [Flonase] 100 mcg NS QDAY #1 bottle 07/18/19 Unknown Rx Oxybutynin [Ditropan] 5 mg PO DAILY #7 07/18/19 Unknown Rx Pantoprazole [Protonix TAB] 40 mg PO QDAY #30 07/18/19 Unknown Rx carvediloL [Coreg] 6.25 mg PO DAILY #60 07/18/19 Unknown Rx hydrALAZINE 25 mg PO TID #90 07/18/19 Unknown Rx Active Meds: Active Medications Allopurinol (Zyloprim) 100 mg PO QDAY [facility] Last Admin: 07/18/19 09:45 Dose: 100 mg Documented by: Arformoterol Tartrate (Brovana Nebu) 15 mcg IH Q12HRT [facility] Last Admin: 07/18/19 21:53 Dose: 15 mcg Documented by: Aripiprazole (Aripiprazole) 10 mg PO DAILY [facility] Last Admin: 07/18/19 09:44 Dose: 10 mg Documented by: Atorvastatin Calcium (Lipitor) 40 mg PO QHS [facility] Last Admin: 07/18/19 22:20 Dose: 40 mg Documented by: Budesonide (Pulmicort) 0.5 mg IH Q12HRT [facility] Carvedilol (Coreg) 6.25 mg PO DAILY [facility] Last Admin: 07/18/19 09:42 Dose: 6.25 mg Documented by: Citalopram Hydrobromide (Celexa) 10 mg PO QDAY [facility] Last Admin: 07/18/19 09:42 Dose: 10 mg Documented by: Divalproex Sodium (Depakote Er) 250 mg PO BID [facility] Last Admin: 07/18/19 22:20 Dose: 250 mg Documented by: Fluticasone Propionate (Flonase) 100 mcg NS QDAY [facility] Last Admin: 07/18/19 09:43 Dose: 100 mcg Documented by: Gabapentin (Gabapentin) 600 mg PO TID [facility] Last Admin: 07/18/19 22:20 Dose: 600 mg Documented by: Hydralazine HCl (Apresoline) 25 mg PO TID [facility] Last Admin: 07/18/19 22:20 Dose: 25 mg Documented by: Oxybutynin Chloride (Ditropan) 5 mg PO DAILY [facility] Last Admin: 07/18/19 09:43 Dose: 5 mg Documented by: Pantoprazole Sodium (Protonix) 40 mg PO QDAY [facility] Last Admin: 07/18/19 09:41 Dose: 40 mg Documented by: Tramadol HCl (Ultram) 50 mg PO Q6HR PRN PRN Reason: PAIN Last Admin: 07/17/19 16:49 Dose: 50 mg Documented by: Trazodone HCl (Desyrel) 50 mg PO QHS [facility] Last Admin: 07/18/19 22:20 Dose: 50 mg Documented by: Review of Systems Constitutional: no weight loss, no weight gain, no fever, no chills, no sweats, no weakness Ears, nose, mouth and throat: no nasal discharge, no epistaxis Cardiovascular: shortness of breath, no chest pain, no lightheadedness Respiratory: cough (nonproductive), shortness of breath, dyspnea on exertion Gastrointestinal: no abdominal pain, no nausea, no vomiting, no diarrhea Musculoskeletal: no muscle weakness, no muscle cramps Integumentary: no rash, no pruritis, no wounds Neurological: no head injury Exam - Vital Signs Vital signs: Vital Signs Temp Pulse Resp BP Pulse Ox 97.9 F 76 18 158/78 98 07/17/19 03:14 07/17/19 03:14 07/17/19 03:14 07/17/19 03:14 07/17/19 03:14 - General Appearance General appearance: well-developed, well-nourished, appears stated age EENT: ATNC, PERRL, mucous membranes moist Neck: Present: neck supple, trachea midline Respiratory: Decreased Breath Sounds (bilateral lung pierer) Heart: regular, normal heart rate, S1S2, no murmurs Gastrointestinal: Present: normal, normoactive bowel sounds. Absent: tenderness, masses, organomegaly Integumentary: no rash, warm and dry Neurologic: alert and oriented x3 Musculoskeletal: Present: other (FROM all extremities) Psychiatric: mood/affect appropriate, cooperative Results - Lab Results 07/17/19 03:37 07/19/19 05:37 Most recent lab results Calcium 8.5 mg/dL (8.4-10.2) 07/19/19 05:37 Assessment and Plan 1. Chronic kidney disease: Unclear what baseline is as patient does not recall being diagnosed CKD. Creatinine appears stable at this time 1.8. Avoid nephrotoxic agents. Meds dosage based on GFR. Cards planning R/L cath on 07/20. Patient at high risk for contrast nephropathy. Explained risks of using contrast and patient elected to proceed with cardiology plan of gentle IV hydration and cath. Will monitor creatinine level closely. 2. Heart failure: Strict I&O. R/L cath planned 07/20. Last EF 6 months ago, EF 60%. 3. H/o schizoaffective disorder with depression: 4. Hypertension: Monitor BP. 5. Substance abuse: 6. Tobacco abuse: 7. H/o Afib: Cards following. s/p ablation in [place]. Not currently on oral anticoag.
[2019-07-19] MEDS: BUDESONIDE 0.5 MG/2 ML NEBU IH SCH ×2 (07:50→20:08)
[2019-07-19] MEDS: ARFORMOTEROL 15 MCG/2 ML NEBU IH SCH ×2 (07:50→20:08)
--- NOTE | 2019-07-19 10:11 | Progress Note ---
Assessment and Plan Heart failure with a preserved ejection fraction Hx of schizo-affective disorder with depression Chronic renal failure Hypertension Tobacco abuse Hx of paroxysmal atrial fibrillation s/p ablation per pt while living in [place]; no longer on oral anticoagulation. normal MPI while living in [place] 6 months ago per pt. Substance abuse An echocardiogram done 02/2019 reports normal LVEF, EF 60%. There was also mild dilatation of the left atrium, and mild calcific aortic stenosis. Patient has been recommended a right/left heart catheterization for further assessment of heart failure and aortic stenosis. Due to chronic kidney disease, patient informed she will be a high risk for contrast nephropathy. Patient understands and wishes to proceed. We will initiate normal saline for gentle hydration and plan for a cardiac cath on . Subjective Date of service: 07/19/19 Interval history: Patient is resting in bed comfortably. She has no complaints Objective Vital Signs Temp Pulse Pulse Resp Resp BP BP 07/19/19 08:40 18 07/19/19 08:14 97.6 F 67 20 137/65 07/19/19 07:52 72 18 07/19/19 06:18 97.7 F 72 18 152/55 07/19/19 05:07 72 07/19/19 04:00 82 07/18/19 23:36 85 07/18/19 23:35 98.5 F 88 18 150/63 07/18/19 22:20 70 166/61 07/18/19 21:58 07/18/19 21:53 80 14 07/18/19 20:10 98.4 F 69 18 166/61 07/18/19 20:00 70 07/18/19 16:12 98.3 F 77 18 164/63 07/18/19 13:23 86 161/68 07/18/19 12:00 91 H 07/18/19 11:02 97.9 F 76 18 161/60 07/18/19 10:38 75 155/63 Pulse Ox 07/19/19 08:40 07/19/19 08:14 98 07/19/19 07:52 99 07/19/19 06:18 100 07/19/19 05:07 98 07/19/19 04:00 07/18/19 23:36 95 07/18/19 23:35 95 07/18/19 22:20 07/18/19 21:58 97 07/18/19 21:53 07/18/19 20:10 93 07/18/19 20:00 07/18/19 16:12 96 07/18/19 13:23 07/18/19 12:00 07/18/19 11:02 99 07/18/19 10:38 96 - Physical Examination General: No Apparent Distress HEENT: Positive: PERRL Neck: Positive: trachea midline Cardiac: Positive: Reg Rate and Rhythm Lungs: Positive: Decreased Breath Sounds Neuro: Positive: Grossly Intact Extremities: Absent: edema - Labs and Meds Comprehensive Metabolic Panel 07/19/19 Range/Units 05:37 Sodium 142 (137-145) mmol/L Potassium 4.1 (3.6-5.0) mmol/L Chloride 106.4 (98-107) mmol/L Carbon Dioxide 21 L (22-30) mmol/L BUN 29 H (7-17) mg/dL Creatinine 1.8 H (0.7-1.2) mg/dL Glucose 98 (65-100) mg/dL Calcium 8.5 (8.4-10.2) mg/dL
[2019-07-19] MEDS: hydrALAZINE 25 MG TAB PO SCH ×3 (10:32→20:36)
[2019-07-19] MEDS: GABAPENTIN 300 MG CAP PO SCH ×3 (10:33→20:37)
[2019-07-19] MEDS: OXYBUTYNIN 5 MG TAB PO SCH (10:51)
[2019-07-19] MEDS: carvediloL 6.25 MG TAB PO SCH (10:54)
[2019-07-19] MEDS: ARIPiprazole 10 MG TAB PO SCH (10:54)
[2019-07-19] MEDS: PANTOPRAZOLE 40 MG TAB PO SCH (10:55)
[2019-07-19] MEDS: CITALOPRAM 20 MG TAB PO SCH (10:55)
[2019-07-19] MEDS: DIVALPROEX ER 250 MG TAB PO SCH ×2 (10:56→21:01)
[2019-07-19] MEDS: allopurinoL 100 MG TAB PO SCH (10:56)
[2019-07-19] MEDS: FLUTICASONE PROPIONATE NASAL SPRAY 16 GM NS SCH (10:57)
[2019-07-19] MEDS: SODIUM CHLORIDE 0.9% 1000 ML 1,000 ML IV SCH (10:59)
--- NOTE | 2019-07-19 15:50 | Progress Note ---
Assessment and Plan /Acute diastolic congestive heart failure[Heart failure with preserved LV function] IV diuretics, input output monitoring; beta-blockers Low-sodium diet, fluid restriction, cardiology evaluation Echocardiogram last 6 months EF 60%, mild aortic stenosis /Aortic stenosis -mild plan for cardiac cath tomorrow to further assess for aortic stenosis in light of patient's complaints of dyspnea /Respiratory distress vs dyspnea on exertion -Complains of dyspnea on ambulation but maintaining O2 sat greater than 92% on pulse ox -Per 2D echo patient has mild aortic stenosis -Cardiology decided for right and left heart cath to further revealed a possible cause for dyspnea /History of paroxysmal atrial fibrillation; status post ablation Patient no longer on anticoagulation Continue current management cardiology following /Chronic kidney disease stage III; Monitor renal function, avoid nephrotoxins, nephrology consulted for further management as patient is going for cardiac cath tomorrow Continue mild IV fluid for now /Hypertension; moderate control Continue current antihypertensives and PRN medications /History of schizoaffective disorder; With depression, continue psych medications psych consult if needed /Ongoing tobacco use; smoking cessation counseling Nicotine patch as needed /Cocaine abuse, counselled, UDS is positive for cocaine --DVT prophylaxis; Lovenox Monitor closely and adjust management as needed Follow cardiology evaluation and recommendations -cardiac cath tomorrow, monitor renal function Physical exam: GENERAL: well-developed and well-nourished white female lying on bed appeared to be in no discomfort. HEENT: Normocephalic. Atraumatic. No conjunctival congestion or icterus. Patient has moist mucous membranes. NECK: Supple. Trachea midline. CHEST/LUNGS: Clear to auscultated bilaterally, breathing nonlabored. No wheezes crackles or rhonchi. HEART/CARDIOVASCULAR: Regular in rate and rhythm. S1 and S2 positive. ABDOMEN: Abdomen is soft, nontender. Patient has normal bowel sounds. SKIN: There is no rash. Warm and dry. NEURO: No focal motor deficit. Follows command. MUSCULOSKELETAL: No joint effusion or tenderness. EXTRIMITY: No edema, no cyanosis or clubbing. PSYCH: Cooperative. Subjective Date of service: 07/19/19 Interval history: Patient seen and examined. Medical records and medication list reviewed. No acute event overnight noted by the RN. Patient denies any chest pain but complains of difficulty breathing on exertion. Patient is tolerating diet. Discussed plan of care at bedside with patient. Plan for cardiac cath tomorrow Objective - Constitutional Vitals: Vital Signs - 12hr 07/19/19 07/19/19 07/19/19 04:00 05:07 06:18 Temperature 97.7 F Pulse Rate 82 72 72 Pulse Rate [ Posterior Bilateral Throughout] Respiratory 18 Rate Respiratory Rate [Posterior Bilateral Throughout] Blood Pressure Blood Pressure 152/55 [Left] O2 Sat by Pulse 98 100 Oximetry 07/19/19 07/19/19 07/19/19 07:52 08:14 08:40 Temperature 97.6 F Pulse Rate 67 Pulse Rate [ 72 Posterior Bilateral Throughout] Respiratory 20 18 Rate Respiratory 18 Rate [Posterior Bilateral Throughout] Blood Pressure Blood Pressure 137/65 [Left] O2 Sat by Pulse 99 98 Oximetry 07/19/19 07/19/19 10:54 13:28 Temperature Pulse Rate 67 68 Pulse Rate [ Posterior Bilateral Throughout] Respiratory Rate Respiratory Rate [Posterior Bilateral Throughout] Blood Pressure 137/65 167/49 Blood Pressure [Left] O2 Sat by Pulse Oximetry - Labs CBC & Chem 7: 07/17/19 03:37 07/21/19 06:02 Labs: Abnormal lab results 07/19/19 Range/Units 05:37 Carbon Dioxide 21 L (22-30) mmol/L BUN 29 H (7-17) mg/dL Creatinine 1.8 H (0.7-1.2) mg/dL
[2019-07-19] MEDS: traMADol 50 MG TAB PO PRN (19:31)
[2019-07-19] MEDS: traZODone 50 MG TAB PO SCH (21:01)
[2019-07-20 06:50] LABS: INR 1.02 (0.87-1.13)
[2019-07-20 07:02] LABS: Calcium 8.2 mg/dL (8.4-10.2)
--- NOTE | 2019-07-20 07:22 | Progress Note ---
Assessment and Plan 1. Chronic kidney disease: Unclear what baseline is as patient does not recall being diagnosed CKD. Creatinine appears stable at this time 1.8. Avoid nephrotoxic agents. Meds dosage based on GFR. Cards planning R/L cath on 07/20. Patient at high risk for contrast nephropathy. Explained risks of using contrast and patient elected to proceed with cardiology plan of gentle IV hydration and cath. Will monitor creatinine level closely after cath today. 2. Heart failure: Strict I&O. R/L cath planned today, 07/20. Last EF 6 months ago, EF 60%. 3. H/o schizoaffective disorder with depression: 4. Hypertension: Monitor BP. 5. Substance abuse: 6. Tobacco abuse: 7. H/o Afib: Cards following. s/p ablation in [place]. Not currently on oral anticoag. Subjective Date of service: 07/20/19 Interval history: Patient was seen and examined at the bedside. She is sleeping but easily aroused and cooperative with exam. No acute events overnight. Objective - Exam Narrative Exam: General appearance: well-developed, well-nourished, appears stated age EENT: ATNC, PERRL, mucous membranes moist Neck: Present: neck supple, trachea midline Respiratory: Decreased Breath Sounds (bilateral lung pierre) Heart: regular, normal heart rate, S1S2, no murmurs Gastrointestinal: Present: normal, normoactive bowel sounds. Absent: tenderness, masses, organomegaly Integumentary: no rash, warm and dry Neurologic: alert and oriented x3 Musculoskeletal: Present: other (FROM all extremities) Psychiatric: mood/affect appropriate, cooperative - Vital Signs Vital signs: Vital Signs - 12hr 07/19/19 07/19/19 07/19/19 19:34 20:10 20:36 Temperature 98.5 F Pulse Rate 79 78 78 Pulse Rate [ 78 Anterior Bilateral Throughout] Pulse Rate [ 77 Posterior Bilateral Throughout] Respiratory 20 Rate Respiratory 18 Rate [Anterior Bilateral Throughout] Respiratory 18 Rate [Posterior Bilateral Throughout] Blood Pressure 165/74 165/74 O2 Sat by Pulse 96 Oximetry 07/19/19 07/20/19 07/20/19 23:25 00:27 04:00 Temperature 122.0 F H 98.2 F Pulse Rate 72 75 Pulse Rate [ Anterior Bilateral Throughout] Pulse Rate [ Posterior Bilateral Throughout] Respiratory 12 Rate Respiratory Rate [Anterior Bilateral Throughout] Respiratory Rate [Posterior Bilateral Throughout] Blood Pressure 165/60 O2 Sat by Pulse 95 Oximetry 07/20/19 04:17 Temperature 98.9 F Pulse Rate 75 Pulse Rate [ Anterior Bilateral Throughout] Pulse Rate [ Posterior Bilateral Throughout] Respiratory 16 Rate Respiratory Rate [Anterior Bilateral Throughout] Respiratory Rate [Posterior Bilateral Throughout] Blood Pressure 142/50 O2 Sat by Pulse 96 Oximetry - Lab 07/17/19 03:37 07/20/19 06:07 Most recent lab results Calcium 8.2 mg/dL (8.4-10.2) L 07/20/19 06:07 Medications & Allergies - Medications Allergies/Adverse Reactions: Allergies codeine Allergy (Verified 07/11/13 09:12) Rash Sulfa (Sulfonamide Antibiotics) Allergy (Verified 07/11/13 09:12) Rash lisinopril Adverse Reaction (Verified 04/05/19 18:48) Unknown Cough Home Medications: Home Medications Medication Instructions Recorded Confirmed Last Taken Type traZODone [Desyrel] 50 mg PO QHS 08/09/13 07/17/19 04/05/14 History Budesonide/Formoterol Fumarate 10.2 gm IH Q4H 03/10/19 07/17/19 03/10/19 History [Symbicort 160-4.5 Mcg Inhaler] Chlorpheniramine/Dextromethorp 1 each PO Q6HR 03/10/19 07/17/19 03/10/19 History [Cough-Cold Tablet] allopurinoL [Zyloprim] 100 mg PO QDAY 03/10/19 07/17/19 03/10/19 History methOCARBAMOL 500 mg PO Q6HR PRN 03/27/19 07/17/19 Unknown History AtorvaSTATin [Lipitor] 40 mg PO QHS #30 tablet 04/07/19 07/17/19 Unknown Rx traMADoL [Ultram 50 MG tab] 50 mg PO Q6HR PRN #12 tablet 04/22/19 07/17/19 Unknown Rx ARIPiprazole [Abilify TAB] 10 mg PO DAILY #7 07/18/19 Unknown Rx Aspirin EC [Halfprin EC] 81 mg PO DAILY #30 tablet. 07/18/19 Unknown Rx Citalopram [Celexa] 10 mg PO QDAY #7 07/18/19 Unknown Rx Depakote ER 250 mg PO BID #14 07/18/19 Unknown Rx Fluticasone [Flonase] 100 mcg NS QDAY #1 bottle 07/18/19 Unknown Rx Oxybutynin [Ditropan] 5 mg PO DAILY #7 07/18/19 Unknown Rx Pantoprazole [Protonix TAB] 40 mg PO QDAY #30 07/18/19 Unknown Rx carvediloL [Coreg] 6.25 mg PO DAILY #60 07/18/19 Unknown Rx hydrALAZINE 25 mg PO TID #90 07/18/19 Unknown Rx Active Medications: Generic Name Dose Route Start Last Admin Trade Name Freq PRN Reason Stop Dose Admin Allopurinol 100 mg 07/18/19 10:00 07/19/19 10:56 Zyloprim PO 100 mg QDAY MARCIO Administration Arformoterol Tartrate 15 mcg 07/17/19 20:00 07/19/19 20:08 Brovana Nebu IH 15 mcg Q12HRT MARCIO Administration Aripiprazole 10 mg 07/18/19 10:00 07/19/19 10:54 Aripiprazole PO 10 mg DAILY MARCIO Administration Atorvastatin Calcium 40 mg 07/17/19 22:00 07/19/19 21:01 Lipitor PO 40 mg QHS MARCIO Administration Budesonide 0.5 mg 07/19/19 08:00 07/19/19 20:08 Pulmicort IH 0.5 mg Q12HRT MARCIO Administration Carvedilol 6.25 mg 07/18/19 10:00 07/19/19 10:54 Coreg PO 6.25 mg DAILY MARCIO Administration Citalopram Hydrobromide 10 mg 07/18/19 10:00 07/19/19 10:55 Celexa PO 10 mg QDAY MARCIO Administration Divalproex Sodium 250 mg 07/17/19 22:00 07/19/19 21:01 Depakote Er PO 250 mg BID MARCIO Administration Fluticasone Propionate 100 mcg 07/18/19 10:00 07/19/19 10:57 Flonase NS 100 mcg QDAY MARCIO Administration Gabapentin 600 mg 07/17/19 18:00 07/19/19 20:37 Gabapentin PO 600 mg TID MARCIO Administration Hydralazine HCl 25 mg 07/17/19 14:00 07/19/19 20:36 Apresoline PO 25 mg TID MARCIO Administration Sodium Chloride 1,000 mls @ 42 mls/hr 07/19/19 10:15 07/19/19 10:59 Nacl 0.9% 1000 Ml IV 42 mls/hr DIRECT MARCIO Administration Oxybutynin Chloride 5 mg 07/18/19 10:00 07/19/19 10:51 Ditropan PO 5 mg DAILY MARCIO Administration Pantoprazole Sodium 40 mg 07/18/19 10:00 07/19/19 10:55 Protonix PO 40 mg QDAY MARCIO Administration Tramadol HCl 50 mg 07/17/19 10:19 07/19/19 19:31 Ultram PO 50 mg Q6HR PRN Administration PAIN Trazodone HCl 50 mg 07/17/19 22:00 07/19/19 21:01 Desyrel PO 50 mg QHS MARCIO Administration
[2019-07-20] MEDS: BUDESONIDE 0.5 MG/2 ML NEBU IH SCH ×2 (08:56→19:40)
[2019-07-20] MEDS: ARFORMOTEROL 15 MCG/2 ML NEBU IH SCH ×2 (08:56→19:40)
[2019-07-20] MEDS ORDERED: SODIUM CHLORIDE 0.9% 500 ML 500 ML ONE (11:30)
[2019-07-20] MEDS ORDERED: HEPARIN 10,000 UNITS/10 ML VIAL ONE (11:47)
[2019-07-20] MEDS ORDERED: HEPARIN/NS 5000 UNIT/500ML 1,000 ML IR ONE (11:47)
[2019-07-20] MEDS ORDERED: VERAPAMIL 5 MG/2 ML INJ ONE (11:47)
[2019-07-20] MEDS ORDERED: NITROGLYCERIN SYRINGE 0 ML ONE (11:48)
[2019-07-20] MEDS: MIDAZOLAM 2 MG/2 ML INJ ONE ×2 (12:20→12:31)
[2019-07-20] MEDS: LIDOCAINE (2%) 20 MG/1 ML VIAL 20 ML MDV INFILTRATI ONE ×2 (12:20→12:32)
[2019-07-20] MEDS: fentaNYL 100 MCG/2 ML INJ ONE ×2 (12:20→12:31)
[2019-07-20] MEDS ORDERED: hydrALAZINE 20 MG/1 ML INJ ONE (12:55)
--- NOTE | 2019-07-20 13:16 | Event Note ---
Date: 07/20/19 R/L heart cath completed, no complications. Total contrast 30cc of visipaque. Findings: Moderate-severe pulm hypertension, PASP 60. No significant aortic stenosis. Normal coronaries. LVEF 45%. Recommend: Medical therapy as outlined for HFpEF. Outpatient pulmonary evaluation for pHTN. Overnight observation/gentle hydration. Discharge tomorrow if Cr stable.
--- NOTE | 2019-07-20 13:26 | Progress Note ---
Assessment and Plan /Acute diastolic congestive heart failure[Heart failure with preserved LV function] s/p diuretics, input output monitoring; beta-blockers Low-sodium diet, fluid restriction, cardiology following Echocardiogram last 6 months EF 60%, mild aortic stenosis /Aortic stenosis -mild, need medical Mx Status post cardiac cath today to further assess for aortic stenosis in light of patient's complaints of dyspnea R/L heart cath: Moderate-severe pulm hypertension, PASP 60. No significant aortic stenosis. Normal coronaries. LVEF 45%. /Respiratory distress vs dyspnea on exertion -due to pHTN -Complains of dyspnea on ambulation but maintaining O2 sat greater than 92% on pulse ox -Per 2D echo patient has mild aortic stenosis, cardiac cath today showed moderate to severe pulmonary hypertension - PASP 60. -Patient needs further outpatient follow-up with wallpape[facility] for evaluation of pHTN /History of paroxysmal atrial fibrillation; status post ablation Patient no longer on anticoagulation Continue current management cardiology following /Chronic kidney disease stage III; Monitor renal function, avoid nephrotoxins, nephrology consulted for further management as patient required cardiac cath Continue mild IV fluid for now, creatinine remains stable /Hypertension; moderate control Continue current antihypertensives and PRN medications /History of schizoaffective disorder; With depression, continue psych medications psych consult if needed /Ongoing tobacco use; smoking cessation counseling Nicotine patch as needed /Cocaine abuse, counselled, UDS is positive for cocaine --DVT prophylaxis; Lovenox Monitor closely and adjust management as needed Possible DC tomorrow if renal function remains stable, monitor BMP Physical exam: GENERAL: well-developed and well-nourished white female lying on bed appeared to be in no discomfort. HEENT: Normocephalic. Atraumatic. No conjunctival congestion or icterus. Patient has moist mucous membranes. NECK: Supple. Trachea midline. CHEST/LUNGS: Clear to auscultated bilaterally, breathing nonlabored. No wheezes crackles or rhonchi. HEART/CARDIOVASCULAR: Regular in rate and rhythm. S1 and S2 positive. ABDOMEN: Abdomen is soft, nontender. Patient has normal bowel sounds. SKIN: There is no rash. Warm and dry. NEURO: No focal motor deficit. Follows command. MUSCULOSKELETAL: No joint effusion or tenderness. EXTRIMITY: No edema, no cyanosis or clubbing. PSYCH: Cooperative. Subjective Date of service: 07/20/19 Interval history: Patient seen and examined. Medical records and medication list reviewed. No acute event overnight noted by the RN. Patient denies any chest pain but complains of difficulty breathing on exertion. Patient is tolerating diet. Discussed plan of care at bedside with patient. Status post cardiac cath today Objective - Constitutional Vitals: Vital Signs - 12hr 07/20/19 07/20/19 07/20/19 04:00 04:17 08:00 Temperature 98.9 F Pulse Rate 75 75 74 Pulse Rate [ Anterior Bilateral Throughout] Pulse Rate [ Posterior Bilateral Throughout] Respiratory 16 Rate Respiratory Rate [Anterior Bilateral Throughout] Respiratory Rate [Posterior Bilateral Throughout] Blood Pressure 142/50 O2 Sat by Pulse 96 Oximetry 07/20/19 07/20/19 07/20/19 08:56 09:54 11:10 Temperature 98.5 F Pulse Rate 71 Pulse Rate [ 84 Anterior Bilateral Throughout] Pulse Rate [ 84 Posterior Bilateral Throughout] Respiratory 18 Rate Respiratory 18 Rate [Anterior Bilateral Throughout] Respiratory 18 Rate [Posterior Bilateral Throughout] Blood Pressure 179/58 O2 Sat by Pulse 95 97 Oximetry - Labs CBC & Chem 7: 07/17/19 03:37 07/21/19 06:02 Labs: Abnormal lab results 07/20/19 Range/Units 06:07 Chloride 108.3 H (98-107) mmol/L Carbon Dioxide 21 L (22-30) mmol/L BUN 29 H (7-17) mg/dL Creatinine 1.8 H (0.7-1.2) mg/dL Calcium 8.2 L (8.4-10.2) mg/dL
[2019-07-20] MEDS: NIFEdipine XL 60 MG TAB PO SCH (13:56)
[2019-07-20] MEDS: traMADol 50 MG TAB PO PRN ×2 (13:56→19:51)
[2019-07-20] MEDS: ARIPiprazole 10 MG TAB PO SCH (13:57)
[2019-07-20] MEDS: PANTOPRAZOLE 40 MG TAB PO SCH (13:57)
[2019-07-20] MEDS: hydrALAZINE 25 MG TAB PO SCH ×3 (13:57→21:46)
[2019-07-20] MEDS: GABAPENTIN 300 MG CAP PO SCH ×3 (13:57→19:52)
[2019-07-20] MEDS: OXYBUTYNIN 5 MG TAB PO SCH (13:58)
[2019-07-20] MEDS: DIVALPROEX ER 250 MG TAB PO SCH (13:58)
[2019-07-20] MEDS: allopurinoL 100 MG TAB PO SCH (13:58)
[2019-07-20] MEDS: CITALOPRAM 20 MG TAB PO SCH (13:58)
[2019-07-20] MEDS: carvediloL 6.25 MG TAB PO SCH (13:58)
[2019-07-20] MEDS: FLUTICASONE PROPIONATE NASAL SPRAY 16 GM NS SCH (13:59)
[2019-07-20] MEDS: traZODone 50 MG TAB PO SCH (21:46)
[2019-07-20] MEDS: SODIUM CHLORIDE 0.9% 1000 ML 1,000 ML IV SCH (21:53)
[2019-07-21] MEDS: NIFEdipine XL 60 MG TAB PO SCH ×3 (01:13→22:36)
[2019-07-21] MEDS: DIVALPROEX ER 250 MG TAB PO SCH (01:15)
[2019-07-21] MEDS: DIVALPROEX ER 500 MG TAB PO SCH ×3 (01:16→22:54)
[2019-07-21] MEDS: hydrALAZINE 25 MG TAB PO SCH ×3 (05:31→22:37)
[2019-07-21 06:54] LABS: Calcium 8.7 mg/dL (8.4-10.2)
--- NOTE | 2019-07-21 07:39 | Progress Note ---
Assessment and Plan 1. Chronic kidney disease: Unclear what baseline is as patient does not recall being diagnosed CKD. Creatinine appears stable at this time 1.7 s/p cardiac cath on 07/20. Avoid nephrotoxic agents. Meds dosage based on GFR.. Advised patient to f/u in our office in 1 week for CKD. 2. Heart failure: Strict I&O. S/p R/L cath 07/20. Last EF 6 months ago, EF 60%. 3. H/o schizoaffective disorder with depression: 4. Hypertension: Monitor BP. 5. Substance abuse: 6. Tobacco abuse: 7. H/o Afib: Cards following. s/p ablation in [place]. Not currently on oral anticoag. Subjective Date of service: 07/21/19 Interval history: Patient was seen and examined at the bedside. She is awake and ambulating in room. No acute events overnight. She states she feels well after cath 07/20. Objective - Exam Narrative Exam: General appearance: well-developed, well-nourished, appears stated age EENT: ATNC, PERRL, mucous membranes moist Neck: Present: neck supple, trachea midline Respiratory: Decreased Breath Sounds (bibasilar) Heart: regular, normal heart rate, S1S2, no murmurs Gastrointestinal: Present: normal, normoactive bowel sounds. Absent: tenderness, masses, organomegaly Integumentary: no rash, warm and dry Neurologic: alert and oriented x3 Musculoskeletal: Present: other (FROM all extremities) Psychiatric: mood/affect appropriate, cooperative - Vital Signs Vital signs: Vital Signs - 12hr 07/20/19 07/20/19 07/20/19 19:40 19:42 19:46 Temperature 97.3 F L Pulse Rate 63 Pulse Rate [ 69 Anterior Bilateral Throughout] Pulse Rate [ 71 Posterior Bilateral Throughout] Respiratory 18 Rate Respiratory 18 Rate [Anterior Bilateral Throughout] Respiratory 18 Rate [Posterior Bilateral Throughout] Blood Pressure 163/78 Blood Pressure [Left] O2 Sat by Pulse 98 95 Oximetry 07/20/19 07/20/19 07/21/19 19:51 23:24 04:56 Temperature 97.6 F 98.0 F Pulse Rate 64 83 Pulse Rate [ Anterior Bilateral Throughout] Pulse Rate [ Posterior Bilateral Throughout] Respiratory 18 16 18 Rate Respiratory Rate [Anterior Bilateral Throughout] Respiratory Rate [Posterior Bilateral Throughout] Blood Pressure 182/69 Blood Pressure 176/88 [Left] O2 Sat by Pulse 96 90 Oximetry - Lab 07/17/19 03:37 07/21/19 06:02 Most recent lab results Calcium 8.7 mg/dL (8.4-10.2) 07/21/19 06:02 Medications & Allergies - Medications Allergies/Adverse Reactions: Allergies codeine Allergy (Verified 07/11/13 09:12) Rash Sulfa (Sulfonamide Antibiotics) Allergy (Verified 07/11/13 09:12) Rash lisinopril Adverse Reaction (Verified 04/05/19 18:48) Unknown Cough Home Medications: Home Medications Medication Instructions Recorded Confirmed Last Taken Type traZODone [Desyrel] 50 mg PO QHS 08/09/13 07/17/19 04/05/14 History Budesonide/Formoterol Fumarate 10.2 gm IH Q4H 03/10/19 07/17/19 03/10/19 History [Symbicort 160-4.5 Mcg Inhaler] Chlorpheniramine/Dextromethorp 1 each PO Q6HR 03/10/19 07/17/19 03/10/19 History [Cough-Cold Tablet] allopurinoL [Zyloprim] 100 mg PO QDAY 03/10/19 07/17/19 03/10/19 History methOCARBAMOL 500 mg PO Q6HR PRN 03/27/19 07/17/19 Unknown History AtorvaSTATin [Lipitor] 40 mg PO QHS #30 tablet 04/07/19 07/17/19 Unknown Rx traMADoL [Ultram 50 MG tab] 50 mg PO Q6HR PRN #12 tablet 04/22/19 07/17/19 Unknown Rx ARIPiprazole [Abilify TAB] 10 mg PO DAILY #7 07/18/19 Unknown Rx Aspirin EC [Halfprin EC] 81 mg PO DAILY #30 tablet. 07/18/19 Unknown Rx Citalopram [Celexa] 10 mg PO QDAY #7 07/18/19 Unknown Rx Depakote ER 250 mg PO BID #14 07/18/19 Unknown Rx Fluticasone [Flonase] 100 mcg NS QDAY #1 bottle 07/18/19 Unknown Rx Oxybutynin [Ditropan] 5 mg PO DAILY #7 07/18/19 Unknown Rx Pantoprazole [Protonix TAB] 40 mg PO QDAY #30 07/18/19 Unknown Rx carvediloL [Coreg] 6.25 mg PO DAILY #60 07/18/19 Unknown Rx hydrALAZINE 25 mg PO TID #90 07/18/19 Unknown Rx Active Medications: Generic Name Dose Route Start Last Admin Trade Name Josiahq PRN Reason Stop Dose Admin Allopurinol 100 mg 07/18/19 10:00 07/20/19 13:58 Zyloprim PO 100 mg QDAY MARCIO Administration Arformoterol Tartrate 15 mcg 07/17/19 20:00 07/20/19 19:40 Brovana Nebu IH 15 mcg Q12HRT MARCIO Administration Aripiprazole 10 mg 07/18/19 10:00 07/20/19 13:57 Aripiprazole PO 10 mg DAILY MARCIO Administration Atorvastatin Calcium 40 mg 07/17/19 22:00 07/20/19 21:45 Lipitor PO 40 mg QHS MARCIO Administration Budesonide 0.5 mg 07/19/19 08:00 07/20/19 19:40 Pulmicort IH 0.5 mg Q12HRT MARCIO Administration Carvedilol 6.25 mg 07/18/19 10:00 07/20/19 13:58 Coreg PO 6.25 mg DAILY MARCIO Administration Citalopram Hydrobromide 10 mg 07/18/19 10:00 07/20/19 13:58 Celexa PO 10 mg QDAY MRACIO Administration Divalproex Sodium 250 mg 07/20/19 23:45 07/21/19 01:16 Depakote Er PO 250 mg BID MARCIO Administration Fluticasone Propionate 100 mcg 07/18/19 10:00 07/20/19 13:59 Flonase NS 100 mcg QDAY MARCIO Administration Gabapentin 600 mg 07/17/19 18:00 07/20/19 19:52 Gabapentin PO 600 mg TID MARCIO Administration Hydralazine HCl 50 mg 07/20/19 14:00 07/21/19 05:31 Apresoline PO 50 mg Q8HR MARCIO Administration Nifedipine 60 mg 07/20/19 14:00 07/21/19 01:13 Procardia Xl PO 60 mg Q12HR MARCIO Administration Oxybutynin Chloride 5 mg 07/18/19 10:00 07/20/19 13:58 Ditropan PO 5 mg DAILY MARCIO Administration Pantoprazole Sodium 40 mg 07/18/19 10:00 07/20/19 13:57 Protonix PO 40 mg QDAY MARCIO Administration Tramadol HCl 50 mg 07/17/19 10:19 07/20/19 19:51 Ultram PO 50 mg Q6HR PRN Administration PAIN Trazodone HCl 50 mg 07/17/19 22:00 07/20/19 21:46 Desyrel PO 50 mg QHS MARCIO Administration
[2019-07-21] MEDS: ARFORMOTEROL 15 MCG/2 ML NEBU IH SCH ×2 (07:53→20:05)
[2019-07-21] MEDS: BUDESONIDE 0.5 MG/2 ML NEBU IH SCH ×2 (07:53→20:05)
--- NOTE | 2019-07-21 09:41 | Discharge Summary ---
Providers - Providers Date of Admission: 07/17/19 07:53 Date of discharge: 07/21/19 Attending physician: CAMERON HARDY 07/17/19 07:45 Consult to Physician [CONS] Urgent Comment: Consulting Provider: CATRACHITO DAVENPORT Physician Instructions: Reason For Exam: chf exacerbation 07/18/19 16:46 Consult to Physician [CONS] Routine Comment: Consulting Provider: GRISEL RUBY Physician Instructions: Reason For Exam: CKD need angiogram 07/20/19 13:16 Consult to Cardiac Rehabilitation [CONS] Routine Reason For Exam: Cardiac Rehab Evaluation Hospitalization Condition: Stable Hospital course: Discharge diagnosis: Acute diastolic congestive heart failure[Heart failure with preserved LV function] s/p diuretics, input output monitoring; beta-blockers Low-sodium diet, fluid restriction, cardiology following Echocardiogram last 6 months EF 60%, mild aortic stenosis /Aortic stenosis -mild, need medical Mx Status post cardiac cath today to further assess for aortic stenosis in light of patient's complaints of dyspnea R/L heart cath: Moderate-severe pulm hypertension, PASP 60. No significant aortic stenosis. Normal coronaries. LVEF 45%. /Respiratory distress vs dyspnea on exertion -due to pHTN -Complains of dyspnea on ambulation but maintaining O2 sat greater than 92% on pulse ox -Per 2D echo patient has mild aortic stenosis, cardiac cath today showed moderate to severe pulmonary hypertension - PASP 60. -Patient needs further outpatient follow-up with stock feeder for evaluation of pHTN /History of paroxysmal atrial fibrillation; status post ablation Patient no longer on anticoagulation Continue current management cardiology following /Chronic kidney disease stage III; Monitor renal function, avoid nephrotoxins, nephrology consulted for further management as patient required cardiac cath Continue mild IV fluid for now, creatinine remains stable /Hypertension; moderate control Continue current antihypertensives and PRN medications /History of schizoaffective disorder; With depression, continue psych medications psych consult if needed /Ongoing tobacco use; smoking cessation counseling Nicotine patch as needed /Cocaine abuse, counselled, UDS is positive for cocaine --DVT prophylaxis; Lovenox Monitor closely and adjust management as needed Possible DC tomorrow if renal function remains stable, monitor BMP Physical exam: GENERAL: well-developed and well-nourished white female lying on bed appeared to be in no discomfort. HEENT: Normocephalic. Atraumatic. No conjunctival congestion or icterus. Patient has moist mucous membranes. NECK: Supple. Trachea midline. CHEST/LUNGS: Clear to auscultated bilaterally, breathing nonlabored. No wheezes crackles or rhonchi. HEART/CARDIOVASCULAR: Regular in rate and rhythm. S1 and S2 positive. ABDOMEN: Abdomen is soft, nontender. Patient has normal bowel sounds. SKIN: There is no rash. Warm and dry. NEURO: No focal motor deficit. Follows command. MUSCULOSKELETAL: No joint effusion or tenderness. EXTRIMITY: No edema, no cyanosis or clubbing. PSYCH: Cooperative. Disposition: DC-01 TO HOME OR SELFCARE Time spent for discharge: 34 minutes Core Measure Documentation - Palliative Care Palliative Care/ Comfort Measures: Not Applicable - Core Measures Any of the following diagnoses?: heart failure - Heart Failure Discharge Requirements LISBETH/ARB for LVSD if EF <40%: No Reason for no LISBETH/ARB: Renal impairment Beta calderon at discharge: Yes Exam - Constitutional Vitals: Temp Pulse Resp BP Pulse Ox 97.4 F L 88 16 116/59 96 07/21/19 09:01 07/21/19 09:01 07/21/19 09:01 07/21/19 09:01 07/21/19 09:01 Plan Activity: advance as tolerated Weight Bearing Status: Non-Weight Bearing Diet: low fat, low salt Special Instructions: record daily BP diary, smoking cessation Additional Instructions: Advised patient to f/u in nephrology office in 1 week for CKD. Follow up with: EAN VELA [Other] - 3-5 Days SAEID LYNN MD [Staff Physician] - 7 Days Prescriptions: ARIPiprazole [Abilify TAB] 10 mg PO DAILY #7 Citalopram [Celexa] 10 mg PO QDAY #7 carvediloL [Coreg] 6.25 mg PO DAILY #60 Depakote ER 250 mg PO BID #14 Oxybutynin [Ditropan] 5 mg PO DAILY #7 Fluticasone [Flonase] 100 mcg NS QDAY #1 bottle Aspirin EC [Halfprin EC] 81 mg PO DAILY #30 tablet. hydrALAZINE 25 mg PO TID #90 Pantoprazole [Protonix TAB] 40 mg PO QDAY #30
--- NOTE | 2019-07-21 09:52 | Cardiac Catherization Report ---
CARDIAC CATHETERIZATION REPORT. REASON FOR PROCEDURE: Congestive heart failure. The patient is a 64-year-old woman who presented with congestive heart failure and pulmonary edema. Cardiac catheterization was recommended. 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 The patient understands the risks and wishes to proceed. PROCEDURE: 1. Right heart catheterization. 2. Left heart catheterization. 3. Selective left and right coronary angiography. 4. Left ventricular angiography. 5. Sedation time, start 12:31, end 12:55. PROCEDURES: The patient was prepped and draped in a sterile fashion after informed consent. Right femoral artery and vein were both entered using Seldinger technique followed by placement of a 6-Polish sheath in the artery and an 8-Polish sheath in the vein. A [place]Mary catheter was then advanced to the pulmonary artery position. Cardiac output was measured by thermodilution method. A dual lumen pigtail catheter was then advanced into the left ventricle. Simultaneous right and left heart filling pressures were then recorded following which the [place]-Mary was withdrawn and right heart pressures recorded on pullback. Simultaneous transaortic pressures were measured using the dual lumen pigtail catheter. Following this, left ventricular angiography was performed and the pigtail catheter was then withdrawn. We then performed selective left and right coronary angiography. The catheters were then withdrawn, sheath withdrawn and hemostasis achieved using an Angio-Seal device over the arterial site and manual compression over the venous site. The patient was returned to the postprocedure unit in stable condition. There were no complications. FINDINGS: HEMODYNAMICS: The mean right atrial pressure was 15. Right ventricular pressure was 60/20. Pulmonary artery systolic pressure was 60/40. The mean pulmonary artery wedge pressure was 25. Left ventricular end-diastolic pressure was 25. Ascending aortic pressure was 227/99. There was no significant transaortic pressure gradient measured using the dual lumen pigtail catheter. A cardiac output was 5.1 liters per minute. CORONARY ANGIOGRAPHY: The left main coronary artery was angiographically normal. The left anterior descending artery and its diagonal branches were angiographically normal. The circumflex artery and its obtuse marginal branches were angiographically normal. The right coronary artery was dominant and contained mild luminal irregularities. There was a very mild left ventricular systolic dysfunction with left ventricular ejection fraction estimated at 45%. The total contrast used for the entire procedure was 30 mL of Visipaque. CONCLUSION: 1. Moderate to severe elevation of the right and left heart filling pressures. 2. Moderately severe pulmonary hypertension with pulmonary artery systolic pressure of 60. 3. There is no significant aortic stenosis detected. No significant gradient across the aortic valve using a dual lumen pigtail catheter. 4. No significant coronary artery disease, essentially angiographically normal coronary arteries. 5. Very mild nonischemic cardiomyopathy with ejection fraction 45%. RECOMMENDATIONS: 1. Risk factor modification. 2. Medical therapy including blood pressure management for heart failure with preserved ejection fraction. 3. Pulmonary evaluation as indicated for pulmonary hypertension. JOB# [id number] RADHAMES/BERENICE
[2019-07-21] MEDS: allopurinoL 100 MG TAB PO SCH (10:01)
[2019-07-21] MEDS: CITALOPRAM 20 MG TAB PO SCH (10:01)
[2019-07-21] MEDS: GABAPENTIN 300 MG CAP PO SCH ×3 (10:01→22:38)
[2019-07-21] MEDS: PANTOPRAZOLE 40 MG TAB PO SCH (10:01)
[2019-07-21] MEDS: ARIPiprazole 10 MG TAB PO SCH (10:01)
[2019-07-21] MEDS: FLUTICASONE PROPIONATE NASAL SPRAY 16 GM NS SCH (10:02)
[2019-07-21] MEDS: OXYBUTYNIN 5 MG TAB PO SCH (10:03)
[2019-07-21] MEDS: carvediloL 6.25 MG TAB PO SCH (10:20)
--- NOTE | 2019-07-21 10:37 | Progress Note ---
Assessment and Plan Heart failure with a preserved ejection fraction Hx of schizo-affective disorder with depression Chronic renal failure Hypertension Tobacco abuse Hx of paroxysmal atrial fibrillation s/p ablation per pt while living in [place]; no longer on oral anticoagulation. normal MPI while living in [place] 6 months ago per pt. Substance abuse An echocardiogram done 02/2019 reports normal LVEF, EF 60%. There was also mild dilatation of the left atrium, and mild calcific aortic stenosis R/LHC this admission, findings: Moderate-severe pulm hypertension, PASP 60. No significant aortic stenosis. Normal coronaries. LVEF 45%. Recommend: Continue medical therapy for heart failure with a preserve ejection fraction. Outpatient pulmonary evaluation for pHTN. Stable cardiac alcantar for discharge. Patient will follow up in our office as scheduled . Subjective Date of service: 07/21/19 Interval history: Patient is resting in bed comfortably. She has no complaints. Objective Vital Signs Temp Pulse Pulse Pulse Resp Resp Resp 07/21/19 09:01 97.4 F L 88 16 07/21/19 04:56 98.0 F 83 18 07/20/19 23:24 97.6 F 64 16 07/20/19 19:51 18 07/20/19 19:46 97.3 F L 63 18 07/20/19 19:42 07/20/19 19:40 69 71 18 18 07/20/19 19:30 69 07/20/19 17:05 07/20/19 17:00 69 07/20/19 16:45 71 07/20/19 16:31 75 07/20/19 16:16 72 07/20/19 16:00 76 07/20/19 15:45 86 07/20/19 15:30 71 07/20/19 11:10 BP BP Pulse Ox 07/21/19 09:01 116/59 96 07/21/19 04:56 176/88 90 07/20/19 23:24 182/69 96 07/20/19 19:51 07/20/19 19:46 163/78 95 07/20/19 19:42 98 07/20/19 19:40 07/20/19 19:30 07/20/19 17:05 151/60 07/20/19 17:00 151/60 94 07/20/19 16:45 165/66 97 07/20/19 16:31 173/70 95 07/20/19 16:16 157/82 96 07/20/19 16:00 167/62 98 07/20/19 15:45 195/81 97 07/20/19 15:30 100 07/20/19 11:10 97 - Physical Examination General: No Apparent Distress HEENT: Positive: PERRL Neck: Positive: trachea midline Cardiac: Positive: Reg Rate and Rhythm Lungs: Positive: Decreased Breath Sounds Neuro: Positive: Grossly Intact Extremities: Absent: edema - Labs and Meds Comprehensive Metabolic Panel 07/21/19 Range/Units 06:02 Sodium 139 (137-145) mmol/L Potassium 4.2 (3.6-5.0) mmol/L Chloride 102.4 (98-107) mmol/L Carbon Dioxide 23 (22-30) mmol/L BUN 21 H (7-17) mg/dL Creatinine 1.7 H (0.7-1.2) mg/dL Glucose 126 H (65-100) mg/dL Calcium 8.7 (8.4-10.2) mg/dL
--- NOTE | 2019-07-21 12:55 | Cat Scan Report ---
CT head without contrast INDICATION : code stroke. TECHNIQUE: Axial imaging performed from the skull apex through the skull base without the use of con trast. All CT scans at this location are performed using CT dose reduction for ALARA by means of aut omated exposure control. COMPARISON: CT head from 03/23/2014 FINDINGS: Parenchyma: No acute intracranial hemorrhage or parenchymal abnormality. Ventricles: Ventricles are normal in size and appear symmetric. Soft tissues: Soft tissues including the orbits appear normal. Bones: No acute osseous abnormality. Sinuses: Sinuses and mastoid air cells are clear. IMPRESSION: No acute abnormality. COMMUNICATION: Time of Communication (LINK MACHINE OPERATOR/CDT): 11:51 AM Licensed Practitioner Receiving Report: environmental coordinator Susi Signer Name: Edward De La Rosa MD Signed: 07/21/2019 12:51 PM Workstation Name: [id number]
[2019-07-21] MEDS ORDERED: SODIUM CHLORIDE 0.9% 50 ML IVPB IV ONE (12:58)
[2019-07-21] MEDS ORDERED: ALTEPLASE 100 MG INJ KIT IV ONE ×2 (12:58)
--- NOTE | 2019-07-21 13:04 | Event Note ---
Date: 07/21/19 Patient became lethargic and developed leftsided weakness while sitting over the commode code stroke called, patient taken to the CT head, teleneurology consulted, plan to give tPA transfer the pt to ICU, ordered for MRI brain
--- NOTE | 2019-07-21 13:42 | Consultation ---
History of Present Illness Consult date: 07/21/19 Reason for Consult: Stroke Alert Chief complaint: Syncope and left sided weakness History of present illness: [facility] TeleStroke Metrics: LKW: 1200 Door Time: N/A [facility] Contacted: 1235 [facility] at Bedside: 1243 NIHSS (assessment time): 1249 Interventional Candidate: Likely not a candidate as symptoms are not consistent with a large vessel proximal occlusion. Stat MRI brain/MRA's are pending. Chief Complaint: Syncope with left-sided weakness HPI: Asked to see this patient in emergent telemedicine consultation utilizing interactive audio and video technologies. Consultation was performed with assistance of ancillary / medical staff at bedside. 64-year-old -[place] female with a history of paroxysmal atrial fibrillation status post ablation, schizoaffective disorder, tobacco abuse, and cocaine abuse who was originally admitted on 07/17 for acute diastolic congestive heart failure and shortness of breath. She had a left heart catheterization yesterday, and was noted to have an ejection fraction of around 45%. Patient currently is only on an aspirin. Patient did come in positive for cocaine as w natalie. It appears the patient was going to be discharged today. Nursing reports that the patient was completely fine at 12 PM this afternoon prior to walking to the bathroom. She ambulated to the bathroom on her own. Then staff found her on the toilet and she appeared passed out. She also was noted to have drooling on the left side of her mouth and had left-sided weakness. Therefore, an inpatient stroke alert was initiated. Patient also had complained of chest pain and double vision. Currently on examination, the patient is asleep and somewhat arousable. She keeps going in and out of consciousness. She is able to tell us that it is 2020 and her name. However, she quickly falls back to sleep. At one point, she sat up and had some vomiting. She denied any headaches. Patient was following intermittent commands. She was globally weak but appeared to have more weakness on the left side. Head CT was negative. Blood sugar was stable at 99. Patient was normotensive with blood pressures in the 140s. No evidence of atrial fibrillation per staff. I tried to attempt a call the patient's brother ([phone]), but no one picked up the phone. Given her last known well time being less than 3 hours from discovery of her neurologic symptoms and she is still having significant altered mental status and left-sided weakness, it was decided to give the patient IV alteplase under emergent consent. Alteplase (tPA) Administration: Risk and benefit of IV Alteplase were attempted to be discussed with the patient. Risk includes a 6% chance of symptomatic intracranial hemorrhage. Benefit includes an approximate 30% chance of improving at 3 months with the medication versus a 20% chance of improving at 3 months without the medication. Inclusion criteria were reviewed. Exclusion criteria were reviewed and are all negative. No recent issues with internal bleeding. No recent surgeries. Alteplase Ordered: 1301 Alteplase Total Dose: 75.1 (weight 83.4 kg) Alteplase IV Bolus Dose: 7.5 mg given at 1317 Alteplase IV Infusion Dose: 67.6 mg started at 1320 Vial of Alteplase was visually confirmed by myself. Dosing of IV Alteplase was reviewed by myself and with the wedding day coordinator prior to Alteplase administration. Blood pressure Pre-Alteplase Administration: 121/49 at 1314 PMH: Paroxysmal atrial fibrillation status post ablation; chronic diastolic congestive heart failure; schizoaffective disorder; COPD; pulmonary hypertension; chronic kidney disease; and hypertension. SOC: Positive for tobacco and cocaine abuse. No alcohol abuse. She lives with family. FMH: Significant for hypertension. ROS: 13 point review of systems were reviewed with the patient, and are all negative with the exception of the aforementioned in the history of present illness. VS: Temperature 97.4 F, pulse 88, respirations 16, blood pressure 141/77 Exam: Patient is in no apparent distress. Patient appears as stated age. No obvious acute respiratory or cardiac distress. Patient is well groomed and well-nourished. 1a- LOC: Not keenly responsive - 1 1b- LOC questions: Answers both questions correctly - 0 1c- LOC commands- Performs 1 task correctly- 1 2- Gaze: Normal; no gaze paresis or gaze deviation - 0 3- Visual Gaffney: normal, no Visual field deficit - 0 4- Facial movements: no facial palsy - 0 5- Upper limb motor left greater than right arm drifts - 3 6- Lower limb motor left greater than right leg drifts - 6 7- Limb Coordination: absent ataxia - 0 8- Sensory: no sensory loss - 0 9- Language - Possible aphasia - 1 10- Speech - moderate dysarthria - 1 11- Neglect / Extinction - none found - 0 NIHSS score: 13 Diagnostic Data: CT of the head showed no acute intracranial process Blood glucose 99, PT 13.5, INR 1.02, sodium 139, potassium 4.2, BUN 18, creatinine 1.7 Medical Data Reviewed: 1.Data?reviewed include clinical labs, radiology,?and medical tests; 2.Tests?results discussed w/performing or interpreting physician; 3.Obtaining/reviewing old medical records; 4.Obtaining?case history from another source; 5.Independent?review of image, tracing, or specimen. Medical Decision Making: - Extensive number of diagnosis or management options are considered below. - Extensive amount of complex data reviewed. - High risk of complication and/or morbidity or mortality are associated with differential diagnostic considerations below. - There may be?uncertain?outcome and increased probability of prolonged functional impairment or high probability of severe prolonged functional impairment associated with some of these differential diagnosis. Differential Diagnosis for Stroke: 1.?Cardioembolic?stroke 2. Small vessel disease/lacune 3. Thromboembolic, [id number] mechanism 4.?Hypercoagulable?state-related infarct 5. Transient ischemic attack 6. Thrombotic mechanism, large artery disease Assessment: 1. Altered mental status with left-sided weakness. Possible right hemisphere stroke status post IV alteplase. 2. Syncope with possible vasovagal syncope. 3. Chest pain 4. Paroxysmal atrial fibrillation status post ablation 5. Acute on chronic diastolic congestive heart failure 6. Cocaine and tobacco abuse 7. Pulmonary hypertension 8. Chronic kidney disease 9. Hypertension 10. Schizoaffective disorder Recommendations: Patient should be monitored in the ICU. Further chest pain work-up per primary team. Monitor and document vital signs/blood pressure with neuro checks/NIHSS for the first 24 hours after receiving IV Alteplase using the following parameters: -Check every 15 minutes for 2 hours following IV Alteplase administration -Then check every 30 minutes for 6 hours -Then check every 1 hour for 16 hours Allow permissive hypertension. If SBP > 180 or DBP > 105 on 2 consecutive checks, then administer PRN IV anti- hypertensive medication (Labetalol 10-20 mg IV over 1-2 minutes or start Nicardipine drip at 5 mg/hr and can titrate up every 2.5 mg/hr until parameters are achieved) and notify MD. No anti-platelets or Lovenox for 24 hours s/p IV Alteplase per protocol. Place SCDs for DVT prevention. Repeat head CT in 24 hours s/p IV Alteplase per protocol. Obtain STAT head CT for any new acute headache or new neurological deficits Continue telemetry monitoring to look for paroxysmal atrial fibrillation. Check echocardiogram. Check STAT brain MRI and STAT MRA head and neck without contrast. Consult PT, OT, and ST. Check hemoglobin A1c and lipid panel. Would recommend to consult local Neurology provider to see patient in follow-up consultation on the floor. Thank you for allowing [facility] to participate in the care of your patient. Please call me, Dr. Andre, with any questions at [phone]. Case discussed with the RN and ICU staff. Attempts were made to speak with the primary attending, but she did not pick and shovel worker the phone and voicemail was full. Critical Care notation: I was called to see this critical patient emergently. I personally evaluated this critical patient for acute stroke evaluation, and determining their eligibility for IV Alteplase and interventional therapies. I have spent approximately 41 minutes with the patient, including time at bedside, time discussing the case with other physicians, reviewing plan of care, and time independently reviewing the records and scans. Past History Past Medical History: atrial fib, heart failure, hypertension, hyperlipidemia, renal failure, other (Schizoaffective disorder) Past Surgical History: Other (Ablation paroxysmal atrial fibrillation) Social history: lives with family, smoking. denies: alcohol abuse, prescription drug abuse Family history: hypertension Medications and Allergies Allergies Allergy/AdvReac Type Severity Reaction Status Date / Time codeine Allergy Rash Verified 07/11/13 09:12 Sulfa (Sulfonamide Allergy Rash Verified 07/11/13 09:12 Antibiotics) lisinopril AdvReac Unknown Verified 04/05/19 18:48 Home Medications Medication Instructions Recorded Confirmed Last Taken Type traZODone [Desyrel] 50 mg PO QHS 08/09/13 07/17/19 04/05/14 History Budesonide/Formoterol Fumarate 10.2 gm IH Q4H 03/10/19 07/17/19 03/10/19 History [Symbicort 160-4.5 Mcg Inhaler] Chlorpheniramine/Dextromethorp 1 each PO Q6HR 03/10/19 07/17/19 03/10/19 History [Cough-Cold Tablet] allopurinoL [Zyloprim] 100 mg PO QDAY 03/10/19 07/17/19 03/10/19 History methOCARBAMOL 500 mg PO Q6HR PRN 03/27/19 07/17/19 Unknown History AtorvaSTATin [Lipitor] 40 mg PO QHS #30 tablet 04/07/19 07/17/19 Unknown Rx traMADoL [Ultram 50 MG tab] 50 mg PO Q6HR PRN #12 tablet 04/22/19 07/17/19 Unknown Rx ARIPiprazole [Abilify TAB] 10 mg PO DAILY #7 07/18/19 Unknown Rx Aspirin EC [Halfprin EC] 81 mg PO DAILY #30 tablet. 07/18/19 Unknown Rx Citalopram [Celexa] 10 mg PO QDAY #7 07/18/19 Unknown Rx Depakote ER 250 mg PO BID #14 07/18/19 Unknown Rx Fluticasone [Flonase] 100 mcg NS QDAY #1 bottle 07/18/19 Unknown Rx Oxybutynin [Ditropan] 5 mg PO DAILY #7 07/18/19 Unknown Rx Pantoprazole [Protonix TAB] 40 mg PO QDAY #30 07/18/19 Unknown Rx carvediloL [Coreg] 6.25 mg PO DAILY #60 07/18/19 Unknown Rx hydrALAZINE 25 mg PO TID #90 07/18/19 Unknown Rx Active Meds: Active Medications Allopurinol (Zyloprim) 100 mg PO QDAY [facility] Last Admin: 07/21/19 10:01 Dose: 100 mg Documented by: Arformoterol Tartrate (Brovana Nebu) 15 mcg IH Q12HRT [facility] Last Admin: 07/21/19 07:53 Dose: 15 mcg Documented by: Aripiprazole (Aripiprazole) 10 mg PO DAILY [facility] Last Admin: 07/21/19 10:01 Dose: 10 mg Documented by: Atorvastatin Calcium (Lipitor) 40 mg PO QHS [facility] Last Admin: 07/20/19 21:45 Dose: 40 mg Documented by: Budesonide (Pulmicort) 0.5 mg IH Q12HRT [facility] Last Admin: 07/21/19 07:53 Dose: 0.5 mg Documented by: Carvedilol (Coreg) 6.25 mg PO DAILY [facility] Last Admin: 07/20/19 13:58 Dose: 6.25 mg Documented by: Divalproex Sodium (Depakote Er) 250 mg PO BID [facility] Last Admin: 07/21/19 01:16 Dose: 250 mg Documented by: Fluticasone Propionate (Flonase) 100 mcg NS QDAY [facility] Last Admin: 07/21/19 10:02 Dose: 100 mcg Documented by: Gabapentin (Gabapentin) 600 mg PO TID [facility] Last Admin: 07/21/19 10:01 Dose: 600 mg Documented by: Hydralazine HCl (Apresoline) 50 mg PO Q8HR [facility] Last Admin: 07/21/19 05:31 Dose: 50 mg Documented by: Nifedipine (Procardia Xl) 60 mg PO Q12HR [facility] Last Admin: 07/21/19 10:02 Dose: 60 mg Documented by: Ondansetron HCl (Zofran) 4 mg IV Q8H PRN PRN Reason: Nausea And Vomiting Oxybutynin Chloride (Ditropan) 5 mg PO DAILY [facility] Last Admin: 07/21/19 10:03 Dose: 5 mg Documented by: Pantoprazole Sodium (Protonix) 40 mg PO QDAY [facility] Last Admin: 07/21/19 10:01 Dose: 40 mg Documented by: Tramadol HCl (Ultram) 50 mg PO Q6HR PRN PRN Reason: PAIN Last Admin: 07/20/19 19:51 Dose: 50 mg Documented by: Trazodone HCl (Desyrel) 50 mg PO QHS [facility] Last Admin: 07/20/19 21:46 Dose: 50 mg Documented by: Physical Examination - Vital Signs Vital Signs: Vital Signs Temp Pulse Resp BP Pulse Ox 97.9 F 76 18 158/78 98 07/17/19 03:14 07/17/19 03:14 07/17/19 03:14 07/17/19 03:14 07/17/19 03:14 Results - Laboratory Findings CBC and BMP: 07/17/19 03:37 07/21/19 06:02 Abnormal Lab Findings: Abnormal Labs 07/17/19 07/17/19 07/17/19 03:37 03:37 06:09 Lymph % (Auto) 45.2 H [place] % (Auto) 10.3 H Seg Neutrophils % 39.6 L Chloride Carbon Dioxide 19 L BUN 21 H Creatinine 1.9 H Glucose Calcium NT-Pro-B Natriuret Pep 6517 H 07/19/19 07/20/19 07/21/19 05:37 06:07 06:02 Lymph % (Auto) [place] % (Auto) Seg Neutrophils % Chloride 108.3 H Carbon Dioxide 21 L 21 L BUN 29 H 29 H 21 H Creatinine 1.8 H 1.8 H 1.7 H Glucose 126 H Calcium 8.2 L NT-Pro-B Natriuret Pep
--- NOTE | 2019-07-21 16:02 | Progress Note ---
Assessment and Plan / Acute CVA ? - called stroke ángel today, s/p tPA - transfer to ICU /Acute diastolic congestive heart failure[Heart failure with preserved LV function] s/p diuretics, input output monitoring; beta-blockers Low-sodium diet, fluid restriction, cardiology following Echocardiogram last 6 months EF 60%, mild aortic stenosis /Aortic stenosis -mild, need medical Mx Status post cardiac cath today to further assess for aortic stenosis in light of patient's complaints of dyspnea R/L heart cath: Moderate-severe pulm hypertension, PASP 60. No significant aortic stenosis. Normal coronaries. LVEF 45%. /Respiratory distress vs dyspnea on exertion -due to pHTN -Complains of dyspnea on ambulation but maintaining O2 sat greater than 92% on pulse ox -Per 2D echo patient has mild aortic stenosis, cardiac cath today showed moderate to severe pulmonary hypertension - PASP 60. -Patient needs further outpatient follow-up with welding process specialist for evaluation of pHTN /History of paroxysmal atrial fibrillation; status post ablation Patient no longer on anticoagulation Continue current management cardiology following /Chronic kidney disease stage III; Monitor renal function, avoid nephrotoxins, nephrology consulted for further management as patient required cardiac cath Continue mild IV fluid for now, creatinine remains stable /Hypertension; moderate control Continue current antihypertensives and PRN medications /History of schizoaffective disorder; With depression, continue psych medications psych consult if needed /Ongoing tobacco use; smoking cessation counseling Nicotine patch as needed /Cocaine abuse, counselled, UDS is positive for cocaine --DVT prophylaxis; Lovenox Monitor closely and adjust management as needed Monitor at ICU, f/u MRI and neuro eval Physical exam: GENERAL: white female lying on bed appeared to be in no discomfort. HEENT: Normocephalic. Atraumatic. No conjunctival congestion or icterus. Patient has moist mucous membranes. NECK: Supple. Trachea midline. CHEST/LUNGS: Clear to auscultated bilaterally, breathing nonlabored. No wheezes crackles or rhonchi. HEART/CARDIOVASCULAR: Regular in rate and rhythm. S1 and S2 positive. ABDOMEN: Abdomen is soft, nontender. Patient has normal bowel sounds. SKIN: There is no rash. Warm and dry. NEURO: left sided weakness with reduce reflexes on the left. Follows command. MUSCULOSKELETAL: No joint effusion or tenderness. EXTRIMITY: No edema, no cyanosis or clubbing. PSYCH: Cooperative. Subjective Date of service: 07/21/19 Interval history: Patient seen and examined. Medical records and medication list reviewed. Patient had code stroke today, transferred to ICU, c/o left sided weakness Objective - Constitutional Vitals: Vital Signs - 12hr 07/21/19 07/21/19 07/21/19 04:56 07:53 09:01 Temperature 98.0 F 97.4 F L Pulse Rate 83 88 Pulse Rate [ 70 Anterior Bilateral Throughout] Respiratory 18 16 Rate Respiratory 20 Rate [Anterior Bilateral Throughout] Blood Pressure 116/59 Blood Pressure 176/88 [Left] O2 Sat by Pulse 90 98 96 Oximetry 07/21/19 07/21/19 10:20 13:20 Temperature Pulse Rate 75 74 Pulse Rate [ Anterior Bilateral Throughout] Respiratory 18 Rate Respiratory Rate [Anterior Bilateral Throughout] Blood Pressure 140/70 129/60 Blood Pressure 117/46 [Left] O2 Sat by Pulse Oximetry - Labs CBC & Chem 7: 07/22/19 04:29 07/23/19 07:15 Labs: Abnormal lab results 07/21/19 Range/Units 06:02 BUN 21 H (7-17) mg/dL Creatinine 1.7 H (0.7-1.2) mg/dL Glucose 126 H (65-100) mg/dL
--- NOTE | 2019-07-21 18:08 | Magnetic Resonance Report ---
MR MRA/MRV head wo con INDICATION / CLINICAL INFORMATION: 64 years Female; stroke alert. TECHNIQUE: 3-D time of flight. NASCET type criteria used to evaluate stenoses. COMPARISON: None available. FINDINGS: INTERNAL CAROTID ARTERIES: The motion significantly degrades the image quality. However, there is no clear evidence of significant focal stenosis involving the ICAs by NASCET criteria. VERTEBROBASILAR SYSTEM: There is developmental origin of the right CONFERENCE CENTER MANAGER. There is hypoplasia of the vertebral basilar system which appears reflect associated developmental finding. DISTAL BRANCHES: The distal left CONFER[employer] CENTER MANAGER is not well visualized on this exam which appears to be exacerba darcy by the degree of motion. There is no significant narrowing or large vessel occlusion involving th e proximal middle or anterior cerebral arteries. ANEURYSM: There is a small outpouching along the medial aspect of the anterior genu of the distal rig ht ICA measuring 2-3 mm. This finding would be indicative of a small aneurysm and appears to arise ju st proximal to the origin of the right ophthalmic artery. 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 The motion degrades image quality. However, there is developmental origin of the right CONFERENCE CENTER MANAGER and hypoplasia of the vertebral basilar system as described. There is no clear evidence of significant focal stenosis involving anterior circulation vessels. Signer Name: Herbert Nova MD Signed: 07/21/2019 6:04 PM Workstation Name: [id number]
--- NOTE | 2019-07-21 18:21 | Magnetic Resonance Report ---
MRI BRAIN WITHOUT CONTRAST INDICATION / CLINICAL INFORMATION: stroke alert. Weakness TECHNIQUE: Multiplanar, multisequence MR images of the brain were obtained. COMPARISON: Head CT 07/21/2019 and 03/23/2014 FINDINGS: BRAIN / INTRACRANIAL CONTENTS: Ventricles and cortical sulci are normal in size and configuration. Th ere is no mass effect. No evidence of intracranial hemorrhage or extra-axial fluid collection is seen . Bilaterally symmetrical T2 and FLAIR hyperintensities are observed in the anterior body of the ted us callosum. Smaller foci of white matter hyperintensity are present in the deep and subcortical whit e matter of both cerebral hemispheres. These could represent microvascular ischemic changes. The call osal lesions suggests the possibility of demyelinating disease. Marchiafava-Bignami disease could be considered. In retrospect, similar but more subtle findings can be identified on head CT dated 020. No comparable abnormalities are observed on 03/23/2014. Dilated perivascular spaces are present in the white matter of both cerebral hemispheres. No additional areas of abnormal brain parenchymal s ignal intensity are identified. There is no indication of remote cortical infarction. Diffusion weigh darcy scans are negative. There is no indication of acute ischemic injury. The brainstem and cerebellum have an unremarkable appearance. CRANIOCERVICAL JUNCTION: No abnormalities are identified at the craniocervical junction. VASCULAR FLOW-VOIDS: Normal flow-voids are present within the major intracranial vessels. ORBITS: The orbits have an unremarkable appearance. SINUSES / MASTOIDS: There is no indication of inflammatory disease in the paranasal sinuses or mastoi d air cells. ADDITIONAL FINDINGS: None. IMPRESSION: 1. No indication of recent infarction, mass or hemorrhage. 2. White matter disease as described above. Signer Name: Mike Darby MD Signed: 07/21/2019 6:16 PM Workstation Name: [id number]
--- NOTE | 2019-07-21 18:24 | Magnetic Resonance Report ---
MRA NECK WITHOUT CONTRAST HISTORY: Weakness. Cerebrovascular accident. COMPARISON: none TECHNIQUE: Routine MRA neck performed. 3-D/MIP reformats postprocessed. Percentage stenosis is dete rmined by direct quantitative measurements of distal internal carotid artery diameter compared with n ormal reference segments or by criteria similar to NASCET where applicable. CONTRAST: none FINDINGS: MRA NECK: Limitations: Patient motion artifact degrades image quality. Unfortunately, this is most problematic in the region of the carotid bifurcations. Aortic arch: Thoracic aorta is largely excluded from this examination. Vertebral arteries: No significant abnormality. Signal dropout in the region of the V3 segments likel y secondary to tortuosity of these vessels. Common carotid arteries: No significant abnormality. Right carotid artery:Right common carotid artery, the carotid bifurcation and cervical portions of th e right internal carotid arteries all have an unremarkable appearance. Carotid bifurcation analysis i s limited secondary to patient motion artifact. Left carotid artery:The left common carotid artery, left carotid bifurcation and cervical portions of the left internal carotid artery all have an unremarkable appearance. Evaluation of the carotid bifu rcation is limited by patient motion artifact. SUMMARY:The degree of stenosis, if any, is determined utilizing NASCET like criteria. In this case th ere is no indication of stenosis at the carotid bifurcations or elsewhere. As noted above evaluation of the carotid bifurcations is limited secondary to patient motion artifact. Consider correlation wit h carotid Doppler. Additional findings: None. IMPRESSION: 1. Evaluation of the carotid bifurcations is limited by patient motion artifact. 2. No definite abnormalities are identified on this limited MRA examination of the neck without contr ast. Signer Name: Mike Darby MD Signed: 07/21/2019 6:20 PM Workstation Name: [id number]
--- NOTE | 2019-07-21 20:14 | Event Note ---
Consultation was placed for nephrology, I reviewed the chart and found out that patient is already being followed by nephrology I did speak with the nurse to check with the hospital medicine service and let them know patient is already being followed by nephrology, and if still our services requested to let us know
[2019-07-21] MEDS: traZODone 50 MG TAB PO SCH (22:36)
[2019-07-22 05:31] LABS: Basophils % (Auto) 0.1 % (0.0-1.8); Eosinophils # (Auto) 0.1 K/mm3 (0.0-0.4); Eosinophils % (Auto) 0.5 % (0.0-4.3); Hematocrit 35.9 % (30.3-42.9); Hemoglobin 11.7 gm/dl (10.1-14.3); Lymphocytes # (Auto) 1.9 K/mm3 (1.2-5.4); Lymphocytes % (Auto) 13.6 % (13.4-35.0); Mean Corpuscular HGB Conc 33 % (30-34); Mean Corpuscular Volume 88 fl (79-97); Monocytes % (Auto) 7.3 % (0.0-7.3); Platelet Count 305 K/mm3 (140-440); Red Blood Count 4.07 M/mm3 (3.65-5.03); Red Cell Distribution Width 14.7 % (13.2-15.2)
[2019-07-22 05:50] LABS: Calcium 8.4 mg/dL (8.4-10.2)
[2019-07-22] MEDS: hydrALAZINE 25 MG TAB PO SCH ×3 (07:39→22:19)
[2019-07-22] MEDS: ARFORMOTEROL 15 MCG/2 ML NEBU IH SCH ×2 (08:10→20:45)
[2019-07-22] MEDS: BUDESONIDE 0.5 MG/2 ML NEBU IH SCH ×2 (08:10→20:45)
[2019-07-22] MEDS: GABAPENTIN 300 MG CAP PO SCH ×2 (08:55→22:16)
[2019-07-22] MEDS: traMADol 50 MG TAB PO PRN ×2 (08:55→22:17)
[2019-07-22] MEDS: allopurinoL 100 MG TAB PO SCH (10:59)
[2019-07-22] MEDS: DIVALPROEX ER 500 MG TAB PO SCH (10:59)
[2019-07-22] MEDS: NIFEdipine XL 60 MG TAB PO SCH (10:59)
[2019-07-22] MEDS: PANTOPRAZOLE 40 MG TAB PO SCH (10:59)
[2019-07-22] MEDS: carvediloL 6.25 MG TAB PO SCH (10:59)
[2019-07-22] MEDS: ARIPiprazole 10 MG TAB PO SCH (11:07)
[2019-07-22] MEDS: FLUTICASONE PROPIONATE NASAL SPRAY 16 GM NS SCH (11:08)
--- NOTE | 2019-07-22 11:25 | Progress Note ---
Assessment and Plan 1. Acute kidney injury: Acute kidney injury superimposed on CKD stage 3 in the setting of contrast induced nephropathy. No hypotension. She was on IV fluids until yesterday. Urine studies and Renal US ordered. Start on IV fluids. Monitor renal function. Avoid nephrotoxic agents. Meds dosage based on GFR. 2. FEN: Monitor lytes. 3. HFpEF: S/p R/L cath 07/20. Compensated. 4. Suspected acute CVA: Code stroke was called 07/21. P/p tPA. MRI negative for acute finding, but showed white matter disease. In ICU. 5. H/o schizoaffective disorder with depression. 6. Hypertension: Monitor BP. 7. Substance abuse: 8. Tobacco abuse: 9. H/o Afib: Cards following. S/p ablation in [place]. Subjective Date of service: 07/21/19 Interval history: Patient was seen and examined at the bedside. Transferred to ICU due to suspected CVA. Objective - Exam General appearance: well-developed, well-nourished, appears stated age EENT: ATNC, SHAE, mucous membranes moist Neck: neck supple, trachea midline Respiratory: CTAB Heart: regular, normal heart rate, S1S2, no murmur Gastrointestinal: soft, normoactive bowel sounds, not tender Integumentary: no rash, warm and dry Neurologic: alert and oriented x3 Ext: No edema Psychiatric: mood/affect appropriate, cooperative Subjective Date of service: 07/22/19 Objective - Vital Signs Vital signs: Vital Signs - 12hr 07/21/19 07/21/19 07/21/19 23:30 23:41 23:51 Temperature Pulse Rate 79 78 80 Pulse Rate [ Posterior Bilateral Throughout] Pulse Rate [ Right Arm] Respiratory 15 14 14 Rate Respiratory Rate [Posterior Bilateral Throughout] Respiratory Rate [Right Arm ] Blood Pressure 110/37 110/37 118/45 Blood Pressure [Right Arm] O2 Sat by Pulse 96 96 96 Oximetry O2 Sat by Pulse Oximetry [ Right Arm] 07/22/19 07/22/19 07/22/19 00:00 00:07 00:11 Temperature 98.8 F Pulse Rate 79 80 Pulse Rate [ Posterior Bilateral Throughout] Pulse Rate [ 78 Right Arm] Respiratory 14 13 Rate Respiratory Rate [Posterior Bilateral Throughout] Respiratory 17 Rate [Right Arm ] Blood Pressure 122/51 122/51 Blood Pressure 122/51 [Right Arm] O2 Sat by Pulse 96 95 Oximetry O2 Sat by Pulse 98 Oximetry [ Right Arm] 07/22/19 07/22/19 07/22/19 00:21 00:30 00:41 Temperature Pulse Rate 81 80 80 Pulse Rate [ Posterior Bilateral Throughout] Pulse Rate [ Right Arm] Respiratory 19 21 14 Rate Respiratory Rate [Posterior Bilateral Throughout] Respiratory Rate [Right Arm ] Blood Pressure 120/44 126/46 126/46 Blood Pressure [Right Arm] O2 Sat by Pulse 97 97 96 Oximetry O2 Sat by Pulse Oximetry [ Right Arm] 07/22/19 07/22/19 07/22/19 00:51 01:00 01:07 Temperature Pulse Rate 79 79 Pulse Rate [ Posterior Bilateral Throughout] Pulse Rate [ 80 Right Arm] Respiratory 14 15 Rate Respiratory Rate [Posterior Bilateral Throughout] Respiratory 17 Rate [Right Arm ] Blood Pressure 123/46 118/41 Blood Pressure 118/41 [Right Arm] O2 Sat by Pulse 96 97 Oximetry O2 Sat by Pulse 98 Oximetry [ Right Arm] 07/22/19 07/22/19 07/22/19 01:11 01:30 01:45 Temperature Pulse Rate 78 79 75 Pulse Rate [ Posterior Bilateral Throughout] Pulse Rate [ Right Arm] Respiratory 15 14 14 Rate Respiratory Rate [Posterior Bilateral Throughout] Respiratory Rate [Right Arm ] Blood Pressure 118/41 121/40 121/38 Blood Pressure [Right Arm] O2 Sat by Pulse 96 96 96 Oximetry O2 Sat by Pulse Oximetry [ Right Arm] 07/22/19 07/22/19 07/22/19 02:00 02:15 02:30 Temperature Pulse Rate 79 78 84 Pulse Rate [ Posterior Bilateral Throughout] Pulse Rate [ 80 Right Arm] Respiratory 18 13 14 Rate Respiratory Rate [Posterior Bilateral Throughout] Respiratory 17 Rate [Right Arm ] Blood Pressure 125/38 117/43 132/48 Blood Pressure 121/86 [Right Arm] O2 Sat by Pulse 95 94 96 Oximetry O2 Sat by Pulse 98 Oximetry [ Right Arm] 07/22/19 07/22/19 07/22/19 02:45 03:00 03:15 Temperature Pulse Rate 77 78 77 Pulse Rate [ Posterior Bilateral Throughout] Pulse Rate [ 80 Right Arm] Respiratory 15 13 13 Rate Respiratory Rate [Posterior Bilateral Throughout] Respiratory 17 Rate [Right Arm ] Blood Pressure 120/45 120/47 109/46 Blood Pressure 170/47 [Right Arm] O2 Sat by Pulse 95 96 96 Oximetry O2 Sat by Pulse 98 Oximetry [ Right Arm] 07/22/19 07/22/19 07/22/19 03:31 03:45 03:47 Temperature 98.5 F Pulse Rate 75 75 Pulse Rate [ Posterior Bilateral Throughout] Pulse Rate [ Right Arm] Respiratory 14 13 Rate Respiratory Rate [Posterior Bilateral Throughout] Respiratory Rate [Right Arm ] Blood Pressure 112/58 106/54 Blood Pressure [Right Arm] O2 Sat by Pulse 94 94 Oximetry O2 Sat by Pulse Oximetry [ Right Arm] 07/22/19 07/22/19 07/22/19 04:00 04:01 04:15 Temperature Pulse Rate 77 78 Pulse Rate [ Posterior Bilateral Throughout] Pulse Rate [ 80 Right Arm] Respiratory 15 13 Rate Respiratory Rate [Posterior Bilateral Throughout] Respiratory 17 Rate [Right Arm ] Blood Pressure 111/51 118/48 Blood Pressure 111/51 [Right Arm] O2 Sat by Pulse 96 97 Oximetry O2 Sat by Pulse 98 Oximetry [ Right Arm] 07/22/19 07/22/19 07/22/19 04:31 04:45 05:00 Temperature Pulse Rate 81 98 H Pulse Rate [ Posterior Bilateral Throughout] Pulse Rate [ 80 Right Arm] Respiratory 19 18 Rate Respiratory Rate [Posterior Bilateral Throughout] Respiratory 17 Rate [Right Arm ] Blood Pressure 118/48 106/69 109/76 Blood Pressure 109/69 [Right Arm] O2 Sat by Pulse 95 96 98 Oximetry O2 Sat by Pulse 98 Oximetry [ Right Arm] 07/22/19 07/22/19 07/22/19 05:15 05:31 05:45 Temperature Pulse Rate 98 H 86 79 Pulse Rate [ Posterior Bilateral Throughout] Pulse Rate [ Right Arm] Respiratory 20 23 20 Rate Respiratory Rate [Posterior Bilateral Throughout] Respiratory Rate [Right Arm ] Blood Pressure 123/75 136/56 131/61 Blood Pressure [Right Arm] O2 Sat by Pulse 96 97 95 Oximetry O2 Sat by Pulse Oximetry [ Right Arm] 07/22/19 07/22/19 07/22/19 06:00 06:01 06:15 Temperature Pulse Rate 76 78 Pulse Rate [ Posterior Bilateral Throughout] Pulse Rate [ 80 Right Arm] Respiratory 22 16 Rate Respiratory Rate [Posterior Bilateral Throughout] Respiratory 17 Rate [Right Arm ] Blood Pressure 142/60 116/40 Blood Pressure 142/60 [Right Arm] O2 Sat by Pulse 95 93 Oximetry O2 Sat by Pulse 98 Oximetry [ Right Arm] 07/22/19 07/22/19 07/22/19 06:30 06:45 07:00 Temperature Pulse Rate 79 78 Pulse Rate [ Posterior Bilateral Throughout] Pulse Rate [ 80 Right Arm] Respiratory 15 13 Rate Respiratory Rate [Posterior Bilateral Throughout] Respiratory 17 Rate [Right Arm ] Blood Pressure 113/40 122/47 Blood Pressure 119/57 [Right Arm] O2 Sat by Pulse 96 94 Oximetry O2 Sat by Pulse 98 Oximetry [ Right Arm] 07/22/19 07/22/19 07/22/19 07:01 07:15 07:30 Temperature Pulse Rate 92 H 87 78 Pulse Rate [ Posterior Bilateral Throughout] Pulse Rate [ Right Arm] Respiratory 18 21 28 H Rate Respiratory Rate [Posterior Bilateral Throughout] Respiratory Rate [Right Arm ] Blood Pressure 119/57 119/57 135/54 Blood Pressure [Right Arm] O2 Sat by Pulse 94 98 97 Oximetry O2 Sat by Pulse Oximetry [ Right Arm] 07/22/19 07/22/19 07/22/19 07:45 08:00 08:11 Temperature 98.2 F Pulse Rate 82 78 Pulse Rate [ Posterior Bilateral Throughout] Pulse Rate [ Right Arm] Respiratory 18 22 Rate Respiratory Rate [Posterior Bilateral Throughout] Respiratory Rate [Right Arm ] Blood Pressure 145/52 131/48 Blood Pressure [Right Arm] O2 Sat by Pulse 98 97 95 Oximetry O2 Sat by Pulse Oximetry [ Right Arm] 07/22/19 07/22/19 07/22/19 08:15 08:31 08:45 Temperature Pulse Rate 79 80 89 Pulse Rate [ 81 Posterior Bilateral Throughout] Pulse Rate [ Right Arm] Respiratory 20 21 20 Rate Respiratory 20 Rate [Posterior Bilateral Throughout] Respiratory Rate [Right Arm ] Blood Pressure 126/48 130/48 130/48 Blood Pressure [Right Arm] O2 Sat by Pulse 100 97 97 Oximetry O2 Sat by Pulse Oximetry [ Right Arm] 07/22/19 07/22/19 07/22/19 09:00 09:15 09:31 Temperature Pulse Rate 80 101 H 87 Pulse Rate [ Posterior Bilateral Throughout] Pulse Rate [ Right Arm] Respiratory 24 20 16 Rate Respiratory Rate [Posterior Bilateral Throughout] Respiratory Rate [Right Arm ] Blood Pressure 150/51 171/63 135/67 Blood Pressure [Right Arm] O2 Sat by Pulse 97 96 96 Oximetry O2 Sat by Pulse Oximetry [ Right Arm] 07/22/19 07/22/19 09:45 10:00 Temperature Pulse Rate 80 80 Pulse Rate [ Posterior Bilateral Throughout] Pulse Rate [ Right Arm] Respiratory 26 H 25 H Rate Respiratory Rate [Posterior Bilateral Throughout] Respiratory Rate [Right Arm ] Blood Pressure 140/51 138/53 Blood Pressure [Right Arm] O2 Sat by Pulse 93 96 Oximetry O2 Sat by Pulse Oximetry [ Right Arm] - Lab 07/22/19 04:29 07/22/19 04:29 Most recent lab results Calcium 8.4 mg/dL (8.4-10.2) 07/22/19 04:29 Phosphorus 4.90 mg/dL (2.5-4.5) H 07/22/19 04:29 Magnesium 2.20 mg/dL (1.7-2.3) 07/22/19 04:29 Medications & Allergies - Medications Allergies/Adverse Reactions: Allergies codeine Allergy (Verified 07/11/13 09:12) Rash Sulfa (Sulfonamide Antibiotics) Allergy (Verified 07/11/13 09:12) Rash lisinopril Adverse Reaction (Verified 04/05/19 18:48) Unknown Cough Home Medications: Home Medications Medication Instructions Recorded Confirmed Last Taken Type traZODone [Desyrel] 50 mg PO QHS 08/09/13 07/17/19 04/05/14 History Budesonide/Formoterol Fumarate 10.2 gm IH Q4H 03/10/19 07/17/19 03/10/19 History [Symbicort 160-4.5 Mcg Inhaler] Chlorpheniramine/Dextromethorp 1 each PO Q6HR 03/10/19 07/17/19 03/10/19 History [Cough-Cold Tablet] allopurinoL [Zyloprim] 100 mg PO QDAY 03/10/19 07/17/19 03/10/19 History methOCARBAMOL 500 mg PO Q6HR PRN 03/27/19 07/17/19 Unknown History AtorvaSTATin [Lipitor] 40 mg PO QHS #30 tablet 04/07/19 07/17/19 Unknown Rx traMADoL [Ultram 50 MG tab] 50 mg PO Q6HR PRN #12 tablet 04/22/19 07/17/19 Unknown Rx ARIPiprazole [Abilify TAB] 10 mg PO DAILY #7 02/18/20 Unknown Rx Aspirin EC [Halfprin EC] 81 mg PO DAILY #30 tablet. 07/18/19 Unknown Rx Citalopram [Celexa] 10 mg PO QDAY #7 07/18/19 Unknown Rx Depakote ER 250 mg PO BID #14 07/18/19 Unknown Rx Fluticasone [Flonase] 100 mcg NS QDAY #1 bottle 07/18/19 Unknown Rx Oxybutynin [Ditropan] 5 mg PO DAILY #7 07/18/19 Unknown Rx Pantoprazole [Protonix TAB] 40 mg PO QDAY #30 07/18/19 Unknown Rx carvediloL [Coreg] 6.25 mg PO DAILY #60 07/18/19 Unknown Rx hydrALAZINE 25 mg PO TID #90 07/18/19 Unknown Rx Active Medications: Generic Name Dose Route Start Last Admin Trade Name Freq PRN Reason Stop Dose Admin Allopurinol 100 mg 07/18/19 10:00 07/22/19 10:59 Zyloprim PO 100 mg QDAY MARCIO Administration Arformoterol Tartrate 15 mcg 07/17/19 20:00 07/22/19 08:10 Brovana Nebu IH 15 mcg Q12HRT MARCIO Administration Aripiprazole 10 mg 07/18/19 10:00 07/22/19 11:07 Aripiprazole PO Not Given DAILY MARCIO Atorvastatin Calcium 40 mg 07/17/19 22:00 07/21/19 22:36 Lipitor PO 40 mg QHS MARCIO Administration Budesonide 0.5 mg 07/19/19 08:00 07/22/19 08:10 Pulmicort IH 0.5 mg Q12HRT MARCIO Administration Carvedilol 6.25 mg 07/18/19 10:00 07/22/19 10:59 Coreg PO 6.25 mg DAILY MARCIO Administration Divalproex Sodium 250 mg 07/20/19 23:45 07/22/19 10:59 Depakote Er PO 250 mg BID MARCIO Administration Fluticasone Propionate 100 mcg 07/18/19 10:00 07/22/19 11:08 Flonase NS Not Given QDAY MARCIO Gabapentin 600 mg 07/17/19 18:00 07/22/19 08:55 Gabapentin PO 600 mg TID MARCIO Administration Hydralazine HCl 50 mg 07/20/19 14:00 07/22/19 07:39 Apresoline PO 50 mg Q8HR MARCIO Administration Sodium Chloride 1,000 mls @ 100 mls/hr 07/22/19 10:45 Nacl 0.9% 1000 Ml IV DIRECT MARCIO Nifedipine 60 mg 07/20/19 14:00 07/22/19 10:59 Procardia Xl PO 60 mg Q12HR MARCIO Administration Ondansetron HCl 4 mg 07/21/19 11:27 Zofran IV Q8H PRN Nausea And Vomiting Oxybutynin Chloride 5 mg 07/18/19 10:00 07/21/19 10:03 Ditropan PO 5 mg DAILY MARCIO Administration Pantoprazole Sodium 40 mg 07/18/19 10:00 07/22/19 10:59 Protonix PO 40 mg QDAY MARCIO Administration Tramadol HCl 50 mg 07/17/19 10:19 07/22/19 08:55 Ultram PO 50 mg Q6HR PRN Administration PAIN Trazodone HCl 50 mg 07/17/19 22:00 07/21/19 22:36 Desyrel PO 50 mg QHS MARCIO Administration
[2019-07-22] MEDS: SODIUM CHLORIDE 0.9% 1000 ML 1,000 ML IV SCH ×3 (11:27→22:11)
[2019-07-22] MEDS: OXYBUTYNIN 5 MG TAB PO SCH (11:29)
--- NOTE | 2019-07-22 15:03 | Progress Note ---
Assessment and Plan / Acute TIA - called stroke alert 07/21, s/p tPA - transferred to ICU - MRI brain showed white matter disease /Hypertension; normotensive now Had low BP this am - readjust medications gentle iv fluid /KARI on Chronic kidney disease stage III; not POA - likely due to due to low BP Monitor renal function, avoid nephrotoxins, nephrology following Continue mild IV fluid for now, creatinine slightly trended up today /Acute systolic congestive heart failure [Heart failure with reduced LV function] s/p diuretics, input output monitoring; cont beta-blockers with reduce dose Low-sodium diet, fluid restriction, cardiology following cardiac cath showed Ef of 45% /Aortic stenosis -mild, need medical Mx Status post cardiac cath today to further assess for aortic stenosis in light of patient's complaints of dyspnea R/L heart cath: Moderate-severe pulm hypertension, PASP 60. No significant aortic stenosis. Normal coronaries. LVEF 45%. /Respiratory distress vs dyspnea on exertion -due to pHTN -Complains of dyspnea on ambulation but maintaining O2 sat greater than 92% on pulse ox -Per 2D echo patient has mild aortic stenosis, cardiac cath today showed moderate to severe pulmonary hypertension - PASP 60. -Patient needs further outpatient follow-up with budget technician for evaluation of pHTN /History of paroxysmal atrial fibrillation; status post ablation Patient no longer on anticoagulation Continue current management cardiology following /History of schizoaffective disorder; With depression, continue psych medications psych consult if needed /Ongoing tobacco use; smoking cessation counseling Nicotine patch as needed /Cocaine abuse, counselled, UDS is positive for cocaine --DVT prophylaxis; Lovenox Monitor closely and adjust management as needed Possible DC tomorrow if renal function remains stable, monitor BMP Physical exam: GENERAL: well-developed and well-nourished white female lying on bed appeared to be in no discomfort. HEENT: Normocephalic. Atraumatic. No conjunctival congestion or icterus. Patient has moist mucous membranes. NECK: Supple. Trachea midline. CHEST/LUNGS: Clear to auscultated bilaterally, breathing nonlabored. No wheezes crackles or rhonchi. HEART/CARDIOVASCULAR: Regular in rate and rhythm. S1 and S2 positive. ABDOMEN: Abdomen is soft, nontender. Patient has normal bowel sounds. SKIN: There is no rash. Warm and dry. NEURO: No focal motor deficit. Follows command. MUSCULOSKELETAL: No joint effusion or tenderness. EXTRIMITY: No edema, no cyanosis or clubbing. PSYCH: Cooperative. Subjective Date of service: 07/22/19 Interval history: Patient seen and examined. Medical records and medication list reviewed. Patient developed low BP this am as low as SBP at 80s, cr also 2.4 transfer our of ICU, c/o lightheadedness from low BP Objective - Constitutional Vitals: Vital Signs - 12hr 07/22/19 07/22/19 07/22/19 03:15 03:31 03:45 Temperature Pulse Rate 77 75 75 Pulse Rate [ Posterior Bilateral Throughout] Pulse Rate [ Right Arm] Respiratory 13 14 13 Rate Respiratory Rate [Posterior Bilateral Throughout] Respiratory Rate [Right Arm ] Blood Pressure 109/46 112/58 106/54 Blood Pressure [Right Arm] O2 Sat by Pulse 96 94 94 Oximetry O2 Sat by Pulse Oximetry [ Right Arm] 07/22/19 07/22/19 07/22/19 03:47 04:00 04:01 Temperature 98.5 F Pulse Rate 77 Pulse Rate [ Posterior Bilateral Throughout] Pulse Rate [ 80 Right Arm] Respiratory 15 Rate Respiratory Rate [Posterior Bilateral Throughout] Respiratory 17 Rate [Right Arm ] Blood Pressure 111/51 Blood Pressure 111/51 [Right Arm] O2 Sat by Pulse 96 Oximetry O2 Sat by Pulse 98 Oximetry [ Right Arm] 07/22/19 07/22/19 07/22/19 04:15 04:31 04:45 Temperature Pulse Rate 78 81 98 H Pulse Rate [ Posterior Bilateral Throughout] Pulse Rate [ Right Arm] Respiratory 13 19 18 Rate Respiratory Rate [Posterior Bilateral Throughout] Respiratory Rate [Right Arm ] Blood Pressure 118/48 118/48 106/69 Blood Pressure [Right Arm] O2 Sat by Pulse 97 95 96 Oximetry O2 Sat by Pulse Oximetry [ Right Arm] 07/22/19 07/22/19 07/22/19 05:00 05:15 05:31 Temperature Pulse Rate 98 H 86 Pulse Rate [ Posterior Bilateral Throughout] Pulse Rate [ 80 Right Arm] Respiratory 20 23 Rate Respiratory Rate [Posterior Bilateral Throughout] Respiratory 17 Rate [Right Arm ] Blood Pressure 109/76 123/75 136/56 Blood Pressure 109/69 [Right Arm] O2 Sat by Pulse 98 96 97 Oximetry O2 Sat by Pulse 98 Oximetry [ Right Arm] 07/22/19 07/22/19 07/22/19 05:45 06:00 06:01 Temperature Pulse Rate 79 76 Pulse Rate [ Posterior Bilateral Throughout] Pulse Rate [ 80 Right Arm] Respiratory 20 22 Rate Respiratory Rate [Posterior Bilateral Throughout] Respiratory 17 Rate [Right Arm ] Blood Pressure 131/61 142/60 Blood Pressure 142/60 [Right Arm] O2 Sat by Pulse 95 95 Oximetry O2 Sat by Pulse 98 Oximetry [ Right Arm] 07/22/19 07/22/19 07/22/19 06:15 06:30 06:45 Temperature Pulse Rate 78 79 78 Pulse Rate [ Posterior Bilateral Throughout] Pulse Rate [ Right Arm] Respiratory 16 15 13 Rate Respiratory Rate [Posterior Bilateral Throughout] Respiratory Rate [Right Arm ] Blood Pressure 116/40 113/40 122/47 Blood Pressure [Right Arm] O2 Sat by Pulse 93 96 94 Oximetry O2 Sat by Pulse Oximetry [ Right Arm] 07/22/19 07/22/19 07/22/19 07:00 07:01 07:15 Temperature Pulse Rate 92 H 87 Pulse Rate [ Posterior Bilateral Throughout] Pulse Rate [ 80 Right Arm] Respiratory 18 21 Rate Respiratory Rate [Posterior Bilateral Throughout] Respiratory 17 Rate [Right Arm ] Blood Pressure 119/57 119/57 Blood Pressure 119/57 [Right Arm] O2 Sat by Pulse 94 98 Oximetry O2 Sat by Pulse 98 Oximetry [ Right Arm] 07/22/19 07/22/19 07/22/19 07:30 07:45 08:00 Temperature 98.2 F Pulse Rate 78 82 78 Pulse Rate [ Posterior Bilateral Throughout] Pulse Rate [ Right Arm] Respiratory 28 H 18 22 Rate Respiratory Rate [Posterior Bilateral Throughout] Respiratory Rate [Right Arm ] Blood Pressure 135/54 145/52 131/48 Blood Pressure [Right Arm] O2 Sat by Pulse 97 98 97 Oximetry O2 Sat by Pulse Oximetry [ Right Arm] 07/22/19 07/22/19 07/22/19 08:11 08:15 08:31 Temperature Pulse Rate 79 80 Pulse Rate [ 81 Posterior Bilateral Throughout] Pulse Rate [ Right Arm] Respiratory 20 21 Rate Respiratory 20 Rate [Posterior Bilateral Throughout] Respiratory Rate [Right Arm ] Blood Pressure 126/48 130/48 Blood Pressure [Right Arm] O2 Sat by Pulse 95 100 97 Oximetry O2 Sat by Pulse Oximetry [ Right Arm] 07/22/19 07/22/19 07/22/19 08:45 09:00 09:15 Temperature Pulse Rate 89 80 101 H Pulse Rate [ Posterior Bilateral Throughout] Pulse Rate [ Right Arm] Respiratory 20 24 20 Rate Respiratory Rate [Posterior Bilateral Throughout] Respiratory Rate [Right Arm ] Blood Pressure 130/48 150/51 171/63 Blood Pressure [Right Arm] O2 Sat by Pulse 97 97 96 Oximetry O2 Sat by Pulse Oximetry [ Right Arm] 07/22/19 07/22/19 07/22/19 09:31 09:45 10:00 Temperature Pulse Rate 87 80 80 Pulse Rate [ Posterior Bilateral Throughout] Pulse Rate [ Right Arm] Respiratory 16 26 H 25 H Rate Respiratory Rate [Posterior Bilateral Throughout] Respiratory Rate [Right Arm ] Blood Pressure 135/67 140/51 138/53 Blood Pressure [Right Arm] O2 Sat by Pulse 96 93 96 Oximetry O2 Sat by Pulse Oximetry [ Right Arm] 07/22/19 07/22/19 07/22/19 10:15 10:30 10:45 Temperature Pulse Rate 79 84 83 Pulse Rate [ Posterior Bilateral Throughout] Pulse Rate [ Right Arm] Respiratory 18 19 18 Rate Respiratory Rate [Posterior Bilateral Throughout] Respiratory Rate [Right Arm ] Blood Pressure 142/49 132/60 136/58 Blood Pressure [Right Arm] O2 Sat by Pulse 94 94 92 Oximetry O2 Sat by Pulse Oximetry [ Right Arm] 07/22/19 07/22/19 07/22/19 11:01 11:15 11:31 Temperature Pulse Rate 83 80 81 Pulse Rate [ Posterior Bilateral Throughout] Pulse Rate [ Right Arm] Respiratory 17 19 23 Rate Respiratory Rate [Posterior Bilateral Throughout] Respiratory Rate [Right Arm ] Blood Pressure 136/58 44/21 108/56 Blood Pressure [Right Arm] O2 Sat by Pulse 94 96 96 Oximetry O2 Sat by Pulse Oximetry [ Right Arm] 07/22/19 07/22/19 07/22/19 11:45 12:00 12:03 Temperature 98 F Pulse Rate 87 84 Pulse Rate [ Posterior Bilateral Throughout] Pulse Rate [ Right Arm] Respiratory 18 30 H Rate Respiratory Rate [Posterior Bilateral Throughout] Respiratory Rate [Right Arm ] Blood Pressure 146/63 112/56 Blood Pressure [Right Arm] O2 Sat by Pulse 95 97 Oximetry O2 Sat by Pulse Oximetry [ Right Arm] 07/22/19 07/22/19 07/22/19 12:15 12:30 12:45 Temperature Pulse Rate 83 84 88 Pulse Rate [ Posterior Bilateral Throughout] Pulse Rate [ Right Arm] Respiratory 22 20 20 Rate Respiratory Rate [Posterior Bilateral Throughout] Respiratory Rate [Right Arm ] Blood Pressure 112/56 141/52 141/54 Blood Pressure [Right Arm] O2 Sat by Pulse 95 96 97 Oximetry O2 Sat by Pulse Oximetry [ Right Arm] 07/22/19 07/22/19 07/22/19 13:00 13:15 13:30 Temperature Pulse Rate 87 92 H 94 H Pulse Rate [ Posterior Bilateral Throughout] Pulse Rate [ Right Arm] Respiratory 16 18 18 Rate Respiratory Rate [Posterior Bilateral Throughout] Respiratory Rate [Right Arm ] Blood Pressure 149/58 143/59 139/56 Blood Pressure [Right Arm] O2 Sat by Pulse 95 94 93 Oximetry O2 Sat by Pulse Oximetry [ Right Arm] - Labs CBC & Chem 7: 07/22/19 04:29 07/23/19 07:15 Labs: Abnormal lab results 07/22/19 07/22/19 Range/Units 04:29 04:29 WBC 13.7 H (4.5-11.0) K/mm3 [place] # 1.0 H (0.0-0.8) K/mm3 Seg Neutrophils % 78.5 H (40.0-70.0) % Seg Neutrophils # 10.8 H (1.8-7.7) K/mm3 BUN 34 H (7-17) mg/dL Creatinine 2.4 H (0.7-1.2) mg/dL Phosphorus 4.90 H (2.5-4.5) mg/dL
--- NOTE | 2019-07-22 15:41 | Progress Note ---
Subjective Date of service: 07/22/19 Interval history: Events from yesterday with possible TIA vs CVA noted. Objective Vital Signs Temp Pulse Pulse Pulse Pulse Resp Resp 07/22/19 15:15 81 29 H 07/22/19 15:00 88 19 07/22/19 14:45 88 23 07/22/19 14:30 92 H 26 H 07/22/19 14:15 93 H 18 07/22/19 14:00 92 H 14 07/22/19 13:45 95 H 17 07/22/19 13:30 94 H 18 07/22/19 13:15 92 H 18 07/22/19 13:00 87 16 07/22/19 12:45 88 20 07/22/19 12:30 84 20 07/22/19 12:15 83 22 07/22/19 12:03 98 F 07/22/19 12:00 84 30 H 07/22/19 11:45 87 18 07/22/19 11:31 81 23 07/22/19 11:15 80 19 07/22/19 11:01 83 17 07/22/19 10:45 83 18 07/22/19 10:30 84 19 07/22/19 10:15 79 18 07/22/19 10:00 80 25 H 07/22/19 09:45 80 26 H 07/22/19 09:31 87 16 07/22/19 09:15 101 H 20 07/22/19 09:00 80 24 07/22/19 08:45 89 20 07/22/19 08:31 80 81 21 07/22/19 08:15 79 20 07/22/19 08:11 07/22/19 08:00 98.2 F 78 22 07/22/19 07:45 82 18 07/22/19 07:30 78 28 H 07/22/19 07:15 87 21 07/22/19 07:01 92 H 18 07/22/19 07:00 80 07/22/19 06:45 78 13 07/22/19 06:30 79 15 07/22/19 06:15 78 16 07/22/19 06:01 76 22 07/22/19 06:00 80 07/22/19 05:45 79 20 07/22/19 05:31 86 23 07/22/19 05:15 98 H 20 07/22/19 05:00 80 07/22/19 04:45 98 H 18 07/22/19 04:31 81 19 07/22/19 04:15 78 13 07/22/19 04:01 77 15 07/22/19 04:00 80 07/22/19 03:47 98.5 F 07/22/19 03:45 75 13 07/22/19 03:31 75 14 07/22/19 03:15 77 13 07/22/19 03:00 78 80 13 07/22/19 02:45 77 15 07/22/19 02:30 84 14 07/22/19 02:15 78 13 07/22/19 02:00 79 80 18 07/22/19 01:45 75 14 07/22/19 01:30 79 14 07/22/19 01:11 78 15 07/22/19 01:07 80 07/22/19 01:00 79 15 07/22/19 00:51 79 14 07/22/19 00:41 80 14 07/22/19 00:30 80 21 07/22/19 00:21 81 19 07/22/19 00:11 80 13 07/22/19 00:07 78 07/22/19 00:00 98.8 F 79 14 07/21/19 23:51 80 14 07/21/19 23:41 78 14 07/21/19 23:30 79 15 07/21/19 23:21 77 14 07/21/19 23:11 79 15 07/21/19 23:07 79 07/21/19 23:00 80 15 07/21/19 22:51 78 14 07/21/19 22:41 79 16 07/21/19 22:37 79 20 22:30 79 16 07/21/19 22:21 83 19 20 22:10 79 15 07/21/19 22:07 81 07/21/19 22:00 77 13 07/21/19 21:50 81 17 20 21:40 76 14 20 21:30 77 15 20 21:20 77 14 20 21:10 81 20 07/21/19 21:00 77 14 20 20:50 76 12 20 20:40 76 14 07/21/19 20:30 78 15 07/21/19 20:20 75 14 07/21/19 20:10 72 13 07/21/19 20:09 07/21/19 20:05 78 78 16 07/21/19 20:00 98.6 F 80 14 07/21/19 19:50 79 15 07/21/19 19:46 77 14 07/21/19 19:40 78 16 07/21/19 19:37 78 07/21/19 19:30 78 13 07/21/19 19:26 80 15 07/21/19 19:20 81 15 07/21/19 19:10 82 16 07/21/19 19:07 80 07/21/19 19:00 80 16 07/21/19 18:50 81 17 07/21/19 18:40 81 14 07/21/19 18:37 86 07/21/19 18:30 87 12 07/21/19 18:20 85 18 07/21/19 18:10 88 14 07/21/19 18:07 90 07/21/19 18:00 92 H 18 07/21/19 17:55 85 07/21/19 17:50 85 30 H 07/21/19 17:40 80 22 07/21/19 17:37 84 07/21/19 17:07 84 07/21/19 16:37 84 07/21/19 16:10 84 18 07/21/19 16:07 84 07/21/19 16:00 98.3 F 84 21 07/21/19 15:50 83 28 H Resp Resp BP BP Pulse Ox Pulse Ox 07/22/19 15:15 132/56 97 07/22/19 15:00 134/55 97 07/22/19 14:45 145/56 98 07/22/19 14:30 144/65 97 07/22/19 14:15 117/47 95 07/22/19 14:00 127/47 92 07/22/19 13:45 137/53 93 07/22/19 13:30 139/56 93 07/22/19 13:15 143/59 94 07/22/19 13:00 149/58 95 07/22/19 12:45 141/54 97 07/22/19 12:30 141/52 96 07/22/19 12:15 112/56 95 07/22/19 12:03 07/22/19 12:00 112/56 97 07/22/19 11:45 146/63 95 07/22/19 11:31 108/56 96 07/22/19 11:15 44/21 96 07/22/19 11:01 136/58 94 07/22/19 10:45 136/58 92 07/22/19 10:30 132/60 94 07/22/19 10:15 142/49 94 07/22/19 10:00 138/53 96 07/22/19 09:45 140/51 93 07/22/19 09:31 135/67 96 07/22/19 09:15 171/63 96 07/22/19 09:00 150/51 97 07/22/19 08:45 130/48 97 07/22/19 08:31 20 130/48 97 07/22/19 08:15 126/48 100 07/22/19 08:11 95 07/22/19 08:00 131/48 97 07/22/19 07:45 145/52 98 07/22/19 07:30 135/54 97 07/22/19 07:15 119/57 98 07/22/19 07:01 119/57 94 07/22/19 07:00 17 119/57 98 07/22/19 06:45 122/47 94 07/22/19 06:30 113/40 96 07/22/19 06:15 116/40 93 07/22/19 06:01 142/60 95 07/22/19 06:00 17 142/60 98 07/22/19 05:45 131/61 95 07/22/19 05:31 136/56 97 07/22/19 05:15 123/75 96 07/22/19 05:00 17 109/76 109/69 98 98 07/22/19 04:45 106/69 96 07/22/19 04:31 118/48 95 07/22/19 04:15 118/48 97 07/22/19 04:01 111/51 96 07/22/19 04:00 17 111/51 98 07/22/19 03:47 02 03:45 106/54 94 07/22/19 03:31 112/58 94 02/22/20 03:15 109/46 96 20 03:00 17 120/47 170/47 96 98 20 02:45 120/45 95 0220 02:30 132/48 96 0220 02:15 117/43 94 20 02:00 17 125/38 121/86 95 98 20 01:45 121/38 96 20 01:30 121/40 96 20 01:11 118/41 96 07/22/19 01:07 17 118/41 98 07/22/19 01:00 118/41 97 20 00:51 123/46 96 20 00:41 126/46 96 07/22/19 00:30 126/46 97 07/22/19 00:21 120/44 97 07/22/19 00:11 122/51 95 20 00:07 17 122/51 98 07/22/19 00:00 122/51 96 20 23:51 118/45 96 0220 23:41 110/37 96 0220 23:30 110/37 96 022120 23:21 110/44 95 0220 23:11 116/49 95 022120 23:07 17 118/47 98 0220 23:00 118/47 95 0220 22:51 119/45 95 0221/20 22:41 113/44 94 022120 22:37 113/44 022120 22:30 118/48 95 0221/20 22:21 123/43 96 022120 22:10 120/42 96 022120 22:07 17 116/42 98 022120 22:00 116/42 95 0221/20 21:50 107/39 95 0221/20 21:40 114/39 94 0221/20 21:30 111/40 95 0221/20 21:20 113/41 95 0221/20 21:10 107/43 93 0221/20 21:00 113/42 95 0221/20 20:50 88/46 96 022120 20:40 103/36 100 022120 20:30 113/36 100 20 20:20 113/40 100 07/21/19 20:10 106/41 99 07/21/19 20:09 98 07/21/19 20:05 16 07/21/19 20:00 113/45 98 07/21/19 19:50 109/42 98 20 19:46 109/42 98 07/21/19 19:40 118/43 98 07/21/19 19:37 17 113/43 98 07/21/19 19:30 113/43 98 07/21/19 19:26 113/45 99 07/21/19 19:20 118/46 99 07/21/19 19:10 124/45 98 07/21/19 19:07 17 121/49 98 07/21/19 19:00 133/47 99 07/21/19 18:50 126/50 98 07/21/19 18:40 135/47 97 07/21/19 18:37 19 135/47 97 07/21/19 18:30 117/44 97 07/21/19 18:20 134/50 98 07/21/19 18:10 132/49 97 07/21/19 18:07 15 149/53 95 07/21/19 18:00 138/59 94 07/21/19 17:55 133/57 07/21/19 17:50 133/57 95 07/21/19 17:40 125/54 95 07/21/19 17:37 21 117/44 97 07/21/19 17:07 21 117/44 97 07/21/19 16:37 21 117/44 97 07/21/19 16:10 133/51 96 07/21/19 16:07 19 133/51 96 07/21/19 16:00 132/49 97 07/21/19 15:50 69/32 98 - Physical Examination General: No Apparent Distress HEENT: Positive: PERRL Neck: Positive: trachea midline Neuro: Positive: Grossly Intact Extremities: Absent: edema - Labs and Meds CBC 07/22/19 Range/Units 04:29 WBC 13.7 H (4.5-11.0) K/mm3 RBC 4.07 (3.65-5.03) M/mm3 Hgb 11.7 (10.1-14.3) gm/dl Hct 35.9 (30.3-42.9) % Plt Count 305 (140-440) K/mm3 Lymph # 1.9 (1.2-5.4) K/mm3 [place] # 1.0 H (0.0-0.8) K/mm3 Eos # 0.1 (0.0-0.4) K/mm3 Baso # 0.0 (0.0-0.1) K/mm3 Comprehensive Metabolic Panel 07/22/19 Range/Units 04:29 Sodium 140 (137-145) mmol/L Potassium 4.6 (3.6-5.0) mmol/L Chloride 102.0 (98-107) mmol/L Carbon Dioxide 22 (22-30) mmol/L BUN 34 H (7-17) mg/dL Creatinine 2.4 H (0.7-1.2) mg/dL Glucose 97 (65-100) mg/dL Calcium 8.4 (8.4-10.2) mg/dL
--- NOTE | 2019-07-22 15:45 | Progress Note ---
Assessment and Plan Heart failure with mildly depressed ejection fraction Hx of schizo-affective disorder with depression Chronic renal failure Hypertension Tobacco abuse Hx of paroxysmal atrial fibrillation s/p ablation per pt while living in [place]; no longer on oral anticoagulation. Normal MPI while living in [place] 6 months ago per pt. Substance abuse: UDS positive for cocaine Possible TIA vs. CVA An echocardiogram done 02/2019 reports normal LVEF, EF 60%. There was also mild dilatation of the left atrium, and mild calcific aortic stenosis R/LHC this admission, findings: Moderate-severe pulm hypertension, PASP 60. No significant aortic stenosis. Normal coronaries. LVEF 45%. Recommend: Continue medical therapy for heart failure Outpatient pulmonary evaluation for pHTN. Patient extensively counseled to refrain from substance abuse Patient will follow up in our office as scheduled . Subjective Date of service: 07/22/19 Interval history: Events from yesterday with possible TIA vs CVA noted. Objective Vital Signs Temp Pulse Pulse Pulse Pulse Resp Resp 07/22/19 15:15 81 29 H 07/22/19 15:00 88 19 07/22/19 14:45 88 23 07/22/19 14:30 92 H 26 H 07/22/19 14:15 93 H 18 07/22/19 14:00 92 H 14 07/22/19 13:45 95 H 17 07/22/19 13:30 94 H 18 07/22/19 13:15 92 H 18 07/22/19 13:00 87 16 07/22/19 12:45 88 20 07/22/19 12:30 84 20 07/22/19 12:15 83 22 07/22/19 12:03 98 F 07/22/19 12:00 84 30 H 07/22/19 11:45 87 18 07/22/19 11:31 81 23 07/22/19 11:15 80 19 07/22/19 11:01 83 17 07/22/19 10:45 83 18 07/22/19 10:30 84 19 07/22/19 10:15 79 18 07/22/19 10:00 80 25 H 07/22/19 09:45 80 26 H 07/22/19 09:31 87 16 07/22/19 09:15 101 H 20 07/22/19 09:00 80 24 07/22/19 08:45 89 20 07/22/19 08:31 80 81 21 07/22/19 08:15 79 20 07/22/19 08:11 07/22/19 08:00 98.2 F 78 22 07/22/19 07:45 82 18 07/22/19 07:30 78 28 H 07/22/19 07:15 87 21 07/22/19 07:01 92 H 18 07/22/19 07:00 80 07/22/19 06:45 78 13 07/22/19 06:30 79 15 07/22/19 06:15 78 16 07/22/19 06:01 76 22 07/22/19 06:00 80 07/22/19 05:45 79 20 07/22/19 05:31 86 23 07/22/19 05:15 98 H 20 07/22/19 05:00 80 07/22/19 04:45 98 H 18 07/22/19 04:31 81 19 07/22/19 04:15 78 13 07/22/19 04:01 77 15 07/22/19 04:00 80 07/22/19 03:47 98.5 F 07/22/19 03:45 75 13 07/22/19 03:31 75 14 07/22/19 03:15 77 13 07/22/19 03:00 78 80 13 07/22/19 02:45 77 15 07/22/19 02:30 84 14 07/22/19 02:15 78 13 07/22/19 02:00 79 80 18 07/22/19 01:45 75 14 07/22/19 01:30 79 14 07/22/19 01:11 78 15 07/22/19 01:07 80 07/22/19 01:00 79 15 07/22/19 00:51 79 14 07/22/19 00:41 80 14 07/22/19 00:30 80 21 07/22/19 00:21 81 19 07/22/19 00:11 80 13 07/22/19 00:07 78 07/22/19 00:00 98.8 F 79 14 07/21/19 23:51 80 14 07/21/19 23:41 78 14 07/21/19 23:30 79 15 07/21/19 23:21 77 14 07/21/19 23:11 79 15 02/21/20 23:07 79 07/21/19 23:00 80 15 07/21/19 22:51 78 14 07/21/19 22:41 79 16 07/21/19 22:37 79 07/21/19 22:30 79 16 07/21/19 22:21 83 19 07/21/19 22:10 79 15 07/21/19 22:07 81 07/21/19 22:00 77 13 07/21/19 21:50 81 17 07/21/19 21:40 76 14 07/21/19 21:30 77 15 07/21/19 21:20 77 14 07/21/19 21:10 81 20 07/21/19 21:00 77 14 07/21/19 20:50 76 12 07/21/19 20:40 76 14 07/21/19 20:30 78 15 07/21/19 20:20 75 14 07/21/19 20:10 72 13 07/21/19 20:09 07/21/19 20:05 78 78 16 07/21/19 20:00 98.6 F 80 14 07/21/19 19:50 79 15 07/21/19 19:46 77 14 07/21/19 19:40 78 16 07/21/19 19:37 78 07/21/19 19:30 78 13 07/21/19 19:26 80 15 07/21/19 19:20 81 15 07/21/19 19:10 82 16 07/21/19 19:07 80 07/21/19 19:00 80 16 07/21/19 18:50 81 17 07/21/19 18:40 81 14 07/21/19 18:37 86 07/21/19 18:30 87 12 07/21/19 18:20 85 18 07/21/19 18:10 88 14 07/21/19 18:07 90 07/21/19 18:00 92 H 18 07/21/19 17:55 85 07/21/19 17:50 85 30 H 07/21/19 17:40 80 22 07/21/19 17:37 84 07/21/19 17:07 84 07/21/19 16:37 84 07/21/19 16:10 84 18 07/21/19 16:07 84 07/21/19 16:00 98.3 F 84 21 07/21/19 15:50 83 28 H Resp Resp BP BP Pulse Ox Pulse Ox 07/22/19 15:15 132/56 97 07/22/19 15:00 134/55 97 07/22/19 14:45 145/56 98 07/22/19 14:30 144/65 97 07/22/19 14:15 117/47 95 07/22/19 14:00 127/47 92 07/22/19 13:45 137/53 93 07/22/19 13:30 139/56 93 07/22/19 13:15 143/59 94 07/22/19 13:00 149/58 95 07/22/19 12:45 141/54 97 07/22/19 12:30 141/52 96 07/22/19 12:15 112/56 95 07/22/19 12:03 07/22/19 12:00 112/56 97 07/22/19 11:45 146/63 95 07/22/19 11:31 108/56 96 07/22/19 11:15 44/21 96 07/22/19 11:01 136/58 94 07/22/19 10:45 136/58 92 07/22/19 10:30 132/60 94 07/22/19 10:15 142/49 94 07/22/19 10:00 138/53 96 07/22/19 09:45 140/51 93 07/22/19 09:31 135/67 96 07/22/19 09:15 171/63 96 07/22/19 09:00 150/51 97 07/22/19 08:45 130/48 97 07/22/19 08:31 20 130/48 97 07/22/19 08:15 126/48 100 07/22/19 08:11 95 07/22/19 08:00 131/48 97 07/22/19 07:45 145/52 98 07/22/19 07:30 135/54 97 07/22/19 07:15 119/57 98 07/22/19 07:01 119/57 94 07/22/19 07:00 17 119/57 98 07/22/19 06:45 122/47 94 07/22/19 06:30 113/40 96 07/22/19 06:15 116/40 93 07/22/19 06:01 142/60 95 07/22/19 06:00 17 142/60 98 07/22/19 05:45 131/61 95 07/22/19 05:31 136/56 97 07/22/19 05:15 123/75 96 07/22/19 05:00 17 109/76 109/69 98 98 07/22/19 04:45 106/69 96 07/22/19 04:31 118/48 95 07/22/19 04:15 118/48 97 07/22/19 04:01 111/51 96 07/22/19 04:00 17 111/51 98 07/22/19 03:47 07/22/19 03:45 106/54 94 07/22/19 03:31 112/58 94 07/22/19 03:15 109/46 96 07/22/19 03:00 17 120/47 170/47 96 98 07/22/19 02:45 120/45 95 07/22/19 02:30 132/48 96 07/22/19 02:15 117/43 94 07/22/19 02:00 17 125/38 121/86 95 98 07/22/19 01:45 121/38 96 07/22/19 01:30 121/40 96 07/22/19 01:11 118/41 96 07/22/19 01:07 17 118/41 98 07/22/19 01:00 118/41 97 07/22/19 00:51 123/46 96 07/22/19 00:41 126/46 96 07/22/19 00:30 126/46 97 07/22/19 00:21 120/44 97 20 00:11 122/51 95 07/22/19 00:07 17 122/51 98 20 00:00 122/51 96 20 23:51 118/45 96 0220 23:41 110/37 96 0220 23:30 110/37 96 0220 23:21 110/44 95 0220 23:11 116/49 95 0220 23:07 17 118/47 98 0220 23:00 118/47 95 20 22:51 119/45 95 02/21/20 22:41 113/44 94 02/21/20 22:37 113/44 02/21/20 22:30 118/48 95 02/21/20 22:21 123/43 96 02/21/20 22:10 120/42 96 02/21/20 22:07 17 116/42 98 02/21/20 22:00 116/42 95 02/21/20 21:50 107/39 95 02/21/20 21:40 114/39 94 02/21/20 21:30 111/40 95 02/21/20 21:20 113/41 95 02/21/20 21:10 107/43 93 02/21/20 21:00 113/42 95 02/21/20 20:50 88/46 96 02/21/20 20:40 103/36 100 02/21/20 20:30 113/36 100 02/21/20 20:20 113/40 100 02/21/20 20:10 106/41 99 02/21/20 20:09 98 02/21/20 20:05 16 0221/20 20:00 113/45 98 02/21/20 19:50 109/42 98 02/21/20 19:46 109/42 98 02/21/20 19:40 118/43 98 02/21/20 19:37 17 113/43 98 02/21/20 19:30 113/43 98 02/21/20 19:26 113/45 99 02/21/20 19:20 118/46 99 02/21/20 19:10 124/45 98 02/21/20 19:07 17 121/49 98 02/21/20 19:00 133/47 99 02/21/20 18:50 126/50 98 02/21/20 18:40 135/47 97 02/21/20 18:37 19 135/47 97 02/21/20 18:30 117/44 97 02/21/20 18:20 134/50 98 02/21/20 18:10 132/49 97 02/21/20 18:07 15 149/53 95 02/21/20 18:00 138/59 94 02/21/20 17:55 133/57 02/21/20 17:50 133/57 95 02/21/20 17:40 125/54 95 02/21/20 17:37 21 117/44 97 07/21/19 17:07 21 117/44 97 07/21/19 16:37 21 117/44 97 07/21/19 16:10 133/51 96 07/21/19 16:07 19 133/51 96 07/21/19 16:00 132/49 97 07/21/19 15:50 69/32 98 - Physical Examination General: No Apparent Distress HEENT: Positive: PERRL Neck: Positive: trachea midline Cardiac: Positive: Reg Rate and Rhythm, Systolic Murmur Lungs: Positive: clear to auscultation Neuro: Positive: Grossly Intact Extremities: Absent: edema - Labs and Meds CBC 07/22/19 Range/Units 04:29 WBC 13.7 H (4.5-11.0) K/mm3 RBC 4.07 (3.65-5.03) M/mm3 Hgb 11.7 (10.1-14.3) gm/dl Hct 35.9 (30.3-42.9) % Plt Count 305 (140-440) K/mm3 Lymph # 1.9 (1.2-5.4) K/mm3 [place] # 1.0 H (0.0-0.8) K/mm3 Eos # 0.1 (0.0-0.4) K/mm3 Baso # 0.0 (0.0-0.1) K/mm3 Comprehensive Metabolic Panel 07/22/19 Range/Units 04:29 Sodium 140 (137-145) mmol/L Potassium 4.6 (3.6-5.0) mmol/L Chloride 102.0 (98-107) mmol/L Carbon Dioxide 22 (22-30) mmol/L BUN 34 H (7-17) mg/dL Creatinine 2.4 H (0.7-1.2) mg/dL Glucose 97 (65-100) mg/dL Calcium 8.4 (8.4-10.2) mg/dL
--- NOTE | 2019-07-22 16:52 | Consultation ---
History of Present Illness Consult date: 07/22/19 Requesting physician: CAMERON HARDY History of present illness: PULMONARY/CCM CONSULT NOTE (Full dictation # [id number]) Please see dictated notes for full details Past History Past Medical History: atrial fib, heart failure, hypertension, hyperlipidemia, renal failure, other (Schizoaffective disorder) Past Surgical History: Other (Ablation paroxysmal atrial fibrillation) Social history: lives with family, smoking. denies: alcohol abuse, prescription drug abuse Family history: hypertension Medications and Allergies Allergies Allergy/AdvReac Type Severity Reaction Status Date / Time codeine Allergy Rash Verified 07/11/13 09:12 Sulfa (Sulfonamide Allergy Rash Verified 07/11/13 09:12 Antibiotics) lisinopril AdvReac Unknown Verified 04/05/19 18:48 Home Medications Medication Instructions Recorded Confirmed Last Taken Type RX: traZODone [Desyrel] 50 mg PO QHS 08/09/13 07/17/19 04/05/14 History RX: Budesonide/Formoterol Fumarate 10.2 gm IH Q4H 03/10/19 07/17/19 03/10/19 History [Symbicort 160-4.5 Mcg Inhaler] RX: Chlorpheniramine/Dextromethorp 1 each PO Q6HR 03/10/19 07/17/19 03/10/19 History [Cough-Cold Tablet] RX: allopurinoL [Zyloprim] 100 mg PO QDAY 03/10/19 07/17/19 03/10/19 History methOCARBAMOL 500 mg PO Q6HR PRN 03/27/19 07/17/19 Unknown History RX: AtorvaSTATin [Lipitor] 40 mg PO QHS #30 tablet 04/07/19 07/17/19 Unknown Rx RX: traMADoL [Ultram 50 MG tab] 50 mg PO Q6HR PRN #12 tablet 04/22/19 07/17/19 Unknown Rx Depakote ER 250 mg PO BID #14 07/18/19 Unknown Rx RX: Aspirin EC [Halfprin EC] 81 mg PO DAILY #30 tablet. 07/18/19 Unknown Rx RX: Fluticasone [Flonase] 100 mcg NS QDAY #1 bottle 07/18/19 Unknown Rx RX: Oxybutynin [Ditropan] 5 mg PO DAILY #7 07/18/19 Unknown Rx RX: Pantoprazole [Protonix TAB] 40 mg PO QDAY #30 07/18/19 Unknown Rx RX: carvediloL [Coreg] 6.25 mg PO DAILY #60 07/18/19 Unknown Rx RX: Aspirin [Aspirin BABY CHEW TAB] 81 mg PO QDAY #30 tab.chew 07/23/19 Unknown Rx RX: Azithromycin [Zithromax TAB] 500 mg PO QDAY #5 tablet 07/23/19 Unknown Rx Active Meds: Active Medications Allopurinol (Zyloprim) 100 mg PO QDAY [facility] Last Admin: 07/22/19 10:59 Dose: 100 mg Documented by: Arformoterol Tartrate (Brovana Nebu) 15 mcg IH Q12HRT [facility] Last Admin: 07/22/19 08:10 Dose: 15 mcg Documented by: Aripiprazole (Aripiprazole) 10 mg PO DAILY [facility] Last Admin: 07/22/19 11:07 Dose: Not Given Documented by: Atorvastatin Calcium (Lipitor) 40 mg PO QHS [facility] Last Admin: 07/21/19 22:36 Dose: 40 mg Documented by: Budesonide (Pulmicort) 0.5 mg IH Q12HRT [facility] Last Admin: 07/22/19 08:10 Dose: 0.5 mg Documented by: Carvedilol (Coreg) 3.125 mg PO BID [facility] Divalproex Sodium (Depakote Er) 250 mg PO BID [facility] Fluticasone Propionate (Flonase) 100 mcg NS QDAY [facility] Last Admin: 07/22/19 11:08 Dose: Not Given Documented by: Gabapentin (Gabapentin) 300 mg PO BID [facility] Hydralazine HCl (Apresoline) 25 mg PO Q8HR [facility] Sodium Chloride (Nacl 0.9% 1000 Ml) 1,000 mls @ 100 mls/hr IV DIRECT [facility] Last Admin: 07/22/19 11:27 Dose: 100 mls/hr Documented by: Ondansetron HCl (Zofran) 4 mg IV Q8H PRN PRN Reason: Nausea And Vomiting Oxybutynin Chloride (Ditropan) 5 mg PO DAILY [facility] Last Admin: 07/22/19 11:29 Dose: 5 mg Documented by: Pantoprazole Sodium (Protonix) 40 mg PO QDAY [facility] Last Admin: 07/22/19 10:59 Dose: 40 mg Documented by: Tramadol HCl (Ultram) 50 mg PO Q6HR PRN PRN Reason: PAIN Last Admin: 07/22/19 08:55 Dose: 50 mg Documented by: Trazodone HCl (Desyrel) 50 mg PO QHS [facility] Last Admin: 07/21/19 22:36 Dose: 50 mg Documented by: Physical Examination Vital signs: Vital Signs Temp Pulse Resp BP Pulse Ox 97.9 F 76 18 158/78 98 07/17/19 03:14 07/17/19 03:14 07/17/19 03:14 07/17/19 03:14 07/17/19 03:14 Results - Laboratory Findings CBC and BMP: 07/22/19 04:29 07/23/19 07:15 PT/INR, D-dimer PT 13.5 Sec. (12.2-14.9) 07/20/19 06:07 INR 1.02 (0.87-1.13) 07/20/19 06:07 Abnormal lab findings: Abnormal Labs 07/17/19 07/17/19 07/17/19 03:37 03:37 06:09 WBC Lymph % (Auto) 45.2 H [place] % (Auto) 10.3 H [place] # Seg Neutrophils % 39.6 L Seg Neutrophils # Chloride Carbon Dioxide 19 L BUN 21 H Creatinine 1.9 H Glucose Calcium Phosphorus NT-Pro-B Natriuret Pep 6517 H 07/19/19 07/20/19 07/21/19 05:37 06:07 06:02 WBC Lymph % (Auto) [place] % (Auto) [place] # Seg Neutrophils % Seg Neutrophils # Chloride 108.3 H Carbon Dioxide 21 L 21 L BUN 29 H 29 H 21 H Creatinine 1.8 H 1.8 H 1.7 H Glucose 126 H Calcium 8.2 L Phosphorus NT-Pro-B Natriuret Pep 07/22/19 07/22/19 04:29 04:29 WBC 13.7 H Lymph % (Auto) [place] % (Auto) [place] # 1.0 H Seg Neutrophils % 78.5 H Seg Neutrophils # 10.8 H Chloride Carbon Dioxide BUN 34 H Creatinine 2.4 H Glucose Calcium Phosphorus 4.90 H NT-Pro-B Natriuret Pep
[2019-07-22] MEDS: ASPIRIN 81 MG TAB CHEW PO SCH (17:30)
[2019-07-22] MEDS ORDERED: carvediloL 6.25 MG TAB PO SCH (22:00)
[2019-07-22] MEDS: traZODone 50 MG TAB PO SCH (22:11)
[2019-07-22] MEDS: ONDANSETRON 4 MG/2 ML INJ IV PRN (22:11)
[2019-07-22] MEDS: carvediloL 3.125 MG TAB PO SCH (22:20)
[2019-07-22] MEDS: DIVALPROEX ER 250 MG TAB PO SCH (22:55)
[2019-07-22 23:02] LABS: Bacteria,Urine 2+ /HPF (Negative); Bilirubin,Urine NEG (Negative); Blood,Urine NEG (Negative); Color,Urine Yellow (Yellow); Mucus,Urine FEW /HPF; Urobilinogen,Urine < 2.0 mg/dL (<2.0)
[2019-07-22 23:03] LABS: Creatinine,Urine 143.6 mg/dL (0.1-20.0)
[2019-07-23] MEDS: ONDANSETRON 4 MG/2 ML INJ IV PRN (06:39)
[2019-07-23] MEDS: hydrALAZINE 25 MG TAB PO SCH (06:39)
[2019-07-23] MEDS: traMADol 50 MG TAB PO PRN (06:39)
[2019-07-23] MEDS: BUDESONIDE 0.5 MG/2 ML NEBU IH SCH (08:02)
[2019-07-23] MEDS: ARFORMOTEROL 15 MCG/2 ML NEBU IH SCH (08:02)
[2019-07-23 08:17] LABS: Calcium 8.2 mg/dL (8.4-10.2)
[2019-07-23] MEDS: DIVALPROEX ER 250 MG TAB PO SCH (10:09)
[2019-07-23] MEDS: OXYBUTYNIN 5 MG TAB PO SCH (10:09)
[2019-07-23] MEDS: PANTOPRAZOLE 40 MG TAB PO SCH (10:10)
[2019-07-23] MEDS: ASPIRIN 81 MG TAB CHEW PO SCH (10:10)
[2019-07-23] MEDS: ARIPiprazole 10 MG TAB PO SCH (10:10)
[2019-07-23] MEDS: GABAPENTIN 300 MG CAP PO SCH (10:10)
[2019-07-23] MEDS: carvediloL 3.125 MG TAB PO SCH (10:10)
[2019-07-23] MEDS: allopurinoL 100 MG TAB PO SCH (10:10)
[2019-07-23] MEDS: FLUTICASONE PROPIONATE NASAL SPRAY 16 GM NS SCH (10:12)
--- NOTE | 2019-07-23 10:26 | Progress Note ---
Assessment and Plan 1. Acute kidney injury: Acute kidney injury superimposed on CKD stage 3 in the setting of contrast induced nephropathy. No hypotension. UA appears bland and Renal US was negative. Continue IV fluids. Renal function is improving. Monitor renal function. Avoid nephrotoxic agents. Meds dosage based on GFR. 2. FEN: Monitor lytes. 3. HFpEF: S/p R/L cath 07/20. Compensated. 4. Suspected acute CVA: Code stroke was called 07/21. P/p tPA. MRI negative for acute finding, but showed white matter disease. 5. H/o schizoaffective disorder with depression. 6. Hypertension: Monitor BP. 7. Substance abuse: 8. Tobacco abuse: 9. H/o Afib: Cards following. S/p ablation in [place]. F/u with me in 1-2 weeks. Subjective Interval history: Patient was seen and examined at the bedside. Transferred to the floor. Doing ok. Objective - Exam General appearance: well-developed, well-nourished, appears stated age EENT: ATNC, SHAE, mucous membranes moist Neck: neck supple, trachea midline Respiratory: CTAB Heart: regular, normal heart rate, S1S2, no murmur Gastrointestinal: soft, normoactive bowel sounds, not tender Integumentary: no rash, warm and dry Neurologic: alert and oriented x3 Ext: No edema Psychiatric: mood/affect appropriate, cooperative Subjective Date of service: 07/23/19 Objective - Vital Signs Vital signs: Vital Signs - 12hr 07/23/19 07/23/19 07/23/19 00:00 04:56 06:39 Temperature 98.7 F 99.1 F Pulse Rate 91 H 90 90 Pulse Rate [ Anterior Bilateral Throughout] Pulse Rate [ Posterior Bilateral Throughout] Respiratory 18 18 18 Rate Respiratory Rate [Anterior Bilateral Throughout] Respiratory Rate [Posterior Bilateral Throughout] Blood Pressure 162/67 136/53 136/53 O2 Sat by Pulse 92 94 Oximetry 07/23/19 07/23/19 07/23/19 07:49 08:00 08:01 Temperature 99.8 F H Pulse Rate 90 Pulse Rate [ 93 H Anterior Bilateral Throughout] Pulse Rate [ 93 H Posterior Bilateral Throughout] Respiratory 18 18 Rate Respiratory 18 Rate [Anterior Bilateral Throughout] Respiratory 18 Rate [Posterior Bilateral Throughout] Blood Pressure 112/77 O2 Sat by Pulse 94 99 Oximetry 07/23/19 10:10 Temperature Pulse Rate 93 H Pulse Rate [ Anterior Bilateral Throughout] Pulse Rate [ Posterior Bilateral Throughout] Respiratory Rate Respiratory Rate [Anterior Bilateral Throughout] Respiratory Rate [Posterior Bilateral Throughout] Blood Pressure 122/77 O2 Sat by Pulse Oximetry - Lab 07/22/19 04:29 07/23/19 07:15 Most recent lab results Calcium 8.2 mg/dL (8.4-10.2) L 07/23/19 07:15 Phosphorus 4.90 mg/dL (2.5-4.5) H 07/22/19 04:29 Magnesium 2.20 mg/dL (1.7-2.3) 07/22/19 04:29 Urine Creatinine 143.6 mg/dL (0.1-20.0) H 07/22/19 22:42 Urine Sodium 111 mmol/L 07/22/19 22:42 Medications & Allergies - Medications Allergies/Adverse Reactions: Allergies codeine Allergy (Verified 07/11/13 09:12) Rash Sulfa (Sulfonamide Antibiotics) Allergy (Verified 07/11/13 09:12) Rash lisinopril Adverse Reaction (Verified 04/05/19 18:48) Unknown Cough Home Medications: Home Medications Medication Instructions Recorded Confirmed Last Taken Type traZODone [Desyrel] 50 mg PO QHS 08/09/13 07/17/19 04/05/14 History Budesonide/Formoterol Fumarate 10.2 gm IH Q4H 03/10/19 07/17/19 03/10/19 History [Symbicort 160-4.5 Mcg Inhaler] Chlorpheniramine/Dextromethorp 1 each PO Q6HR 03/10/19 07/17/19 03/10/19 History [Cough-Cold Tablet] allopurinoL [Zyloprim] 100 mg PO QDAY 03/10/19 07/17/19 03/10/19 History methOCARBAMOL 500 mg PO Q6HR PRN 03/27/19 07/17/19 Unknown History AtorvaSTATin [Lipitor] 40 mg PO QHS #30 tablet 04/07/19 07/17/19 Unknown Rx traMADoL [Ultram 50 MG tab] 50 mg PO Q6HR PRN #12 tablet 04/22/19 07/17/19 Unknown Rx Aspirin EC [Halfprin EC] 81 mg PO DAILY #30 tablet. 07/18/19 Unknown Rx Depakote ER 250 mg PO BID #14 07/18/19 Unknown Rx Fluticasone [Flonase] 100 mcg NS QDAY #1 bottle 07/18/19 Unknown Rx Oxybutynin [Ditropan] 5 mg PO DAILY #7 07/18/19 Unknown Rx Pantoprazole [Protonix TAB] 40 mg PO QDAY #30 07/18/19 Unknown Rx carvediloL [Coreg] 6.25 mg PO DAILY #60 07/18/19 Unknown Rx Aspirin [Aspirin BABY CHEW TAB] 81 mg PO QDAY #30 tab.chew 07/23/19 Unknown Rx Azithromycin [Zithromax TAB] 500 mg PO QDAY #5 tablet 07/23/19 Unknown Rx Active Medications: Generic Name Dose Route Start Last Admin Trade Name Freq PRN Reason Stop Dose Admin Allopurinol 100 mg 07/18/19 10:00 07/23/19 10:10 Zyloprim PO 100 mg QDAY MARCIO Administration Arformoterol Tartrate 15 mcg 07/17/19 20:00 07/23/19 08:02 Brovana Nebu IH 15 mcg Q12HRT MARCIO Administration Aripiprazole 10 mg 07/18/19 10:00 07/23/19 10:10 Aripiprazole PO 10 mg DAILY MARCIO Administration Aspirin 81 mg 07/22/19 17:02 07/23/19 10:10 Baby Aspirin PO 81 mg QDAY MARCIO Administration Atorvastatin Calcium 40 mg 07/17/19 22:00 07/22/19 22:16 Lipitor PO 40 mg QHS MARCIO Administration Budesonide 0.5 mg 07/19/19 08:00 07/23/19 08:02 Pulmicort IH 0.5 mg Q12HRT MARCIO Administration Carvedilol 3.125 mg 07/22/19 22:00 07/23/19 10:10 Coreg PO 3.125 mg BID MARCIO Administration Divalproex Sodium 250 mg 07/22/19 22:00 07/23/19 10:09 Depakote Er PO 250 mg BID MARCIO Administration Fluticasone Propionate 100 mcg 07/18/19 10:00 07/23/19 10:12 Flonase NS 100 mcg QDAY MARCIO Administration Gabapentin 300 mg 07/22/19 22:00 07/23/19 10:10 Gabapentin PO 300 mg BID MARCIO Administration Hydralazine HCl 25 mg 07/22/19 15:00 07/23/19 06:39 Apresoline PO 25 mg Q8HR MARCIO Administration Sodium Chloride 1,000 mls @ 100 mls/hr 07/22/19 10:45 07/22/19 22:11 Nacl 0.9% 1000 Ml IV 100 mls/hr DIRECT MARCIO Administration Ondansetron HCl 4 mg 07/21/19 11:27 07/23/19 06:39 Zofran IV 4 mg Q8H PRN Administration Nausea And Vomiting Oxybutynin Chloride 5 mg 07/18/19 10:00 07/23/19 10:09 Ditropan PO 5 mg DAILY MARCIO Administration Pantoprazole Sodium 40 mg 07/18/19 10:00 07/23/19 10:10 Protonix PO 40 mg QDAY MARCIO Administration Tramadol HCl 50 mg 07/17/19 10:19 07/23/19 06:39 Ultram PO 50 mg Q6HR PRN Administration PAIN Trazodone HCl 50 mg 07/17/19 22:00 07/22/19 22:11 Desyrel PO 50 mg QHS MARCIO Administration
--- NOTE | 2019-07-23 10:38 | Ultrasound Report ---
ULTRASOUND RENAL INDICATION: Acute renal failure. COMPARISON: No relevant prior imaging study available. FINDINGS: RIGHT KIDNEY: Size: 9.1 cm. Echogenicity: Mildly increased. Cortical thickness: Normal. Stones: None. Hydronephrosis: None. Cyst or mass: None. LEFT KIDNEY: Size: 9.2 cm. Echogenicity: Mildly increased. Cortical thickness: Normal. Stones: None. Hydronephrosis: None. Cyst or mass: A 2.8 cm simple cyst is seen from the midportion. Urinary Bladder: No significant abnormality. Free Fluid: None. Additional Findings: None. IMPRESSION: No acute sonographic abnormality of the kidneys Signer Name: Tyree Sales MD Signed: 07/23/2019 10:34 AM Workstation Name: [id number]
[2019-07-23] MEDS ORDERED: carvediloL 3.125 MG TAB PO SCH (11:00)
--- NOTE | 2019-07-23 12:12 | Discharge Summary ---
Providers - Providers Date of Admission: 07/21/19 13:05 Date of discharge: 07/23/19 Attending physician: CAMERON HARDY 07/17/19 07:45 Consult to Physician [CONS] Urgent Comment: Consulting Provider: CATRACHITO DAVENPORT Physician Instructions: Reason For Exam: chf exacerbation 07/18/19 16:46 Consult to Physician [CONS] Routine Comment: Consulting Provider: GRISEL RUBY Physician Instructions: Reason For Exam: CKD need angiogram 07/20/19 13:16 Consult to Cardiac Rehabilitation [CONS] Routine Reason For Exam: Cardiac Rehab Evaluation 07/22/19 08:55 Consult to Physician [CONS] Routine Comment: Consulting Provider: JOSH BINGHAM Physician Instructions: Reason For Exam: critical care management 07/22/19 15:04 Physical Therapy Evaluation and Treat [CONS] Routine Comment: Reason For Exam: placement Hospitalization Condition: Stable Hospital course: Discharge Diagnosis; / Acute TIA - called stroke alert 07/21, s/p tPA - transferred to ICU - MRI brain showed white matter disease /Hypertension; normotensive now Had episodes of low BP - readjusted medications with gentle iv fluid /KARI on Chronic kidney disease stage III; not POA - likely due to due to low BP Monitor renal function, avoid nephrotoxins, nephrology following Continue mild IV fluid for now, creatinine slightly trended up today /Acute systolic congestive heart failure [Heart failure with reduced LV function] s/p diuretics, input output monitoring; cont beta-blockers with reduce dose Low-sodium diet, fluid restriction, cardiology following cardiac cath showed Ef of 45% /Aortic stenosis -mild, need medical Mx Status post cardiac cath to further assess for aortic stenosis in light of patient's complaints of dyspnea R/L heart cath: Moderate-severe pulm hypertension, PASP 60. No significant aortic stenosis. Normal coronaries. LVEF 45%. /Respiratory distress vs dyspnea on exertion -due to pHTN -Complains of dyspnea on ambulation but maintaining O2 sat greater than 92% on pulse ox -Per 2D echo patient has mild aortic stenosis, cardiac cath today showed moderate to severe pulmonary hypertension - PASP 60. -Patient needs further outpatient follow-up with [facility] for evaluation of pHTN /History of paroxysmal atrial fibrillation; status post ablation Patient no longer on anticoagulation Continue current management cardiology following /History of schizoaffective disorder; With depression, continue psych medications psych consult if needed /Ongoing tobacco use; smoking cessation counseling Nicotine patch as needed /Cocaine abuse, counselled, UDS is positive for cocaine --DVT prophylaxis; Lovenox d/c home with outpt f/u Physical exam: GENERAL: well-developed and well-nourished white female lying on bed appeared to be in no discomfort. HEENT: Normocephalic. Atraumatic. No conjunctival congestion or icterus. Patient has moist mucous membranes. NECK: Supple. Trachea midline. CHEST/LUNGS: Clear to auscultated bilaterally, breathing nonlabored. No wheezes crackles or rhonchi. HEART/CARDIOVASCULAR: Regular in rate and rhythm. S1 and S2 positive. ABDOMEN: Abdomen is soft, nontender. Patient has normal bowel sounds. SKIN: There is no rash. Warm and dry. NEURO: No focal motor deficit. Follows command. MUSCULOSKELETAL: No joint effusion or tenderness. EXTRIMITY: No edema, no cyanosis or clubbing. PSYCH: Cooperative. Disposition: DC-01 TO HOME OR SELFCARE Time spent for discharge: 34 minutes Core Measure Documentation - Palliative Care Palliative Care/ Comfort Measures: Not Applicable - Core Measures Any of the following diagnoses?: heart failure, stroke - Heart Failure Discharge Requirements LISBETH/ARB for LVSD if EF <40%: Not Applicable Reason for no LISBETH/ARB: Renal impairment Beta calderon at discharge: Yes - Stroke Discharge Requirements Statin for LDL = or >70 mg/dl on DC: Yes Anticoag for atrial fib/atrial flutter: Not Applicable Antithrombotic for ischemic stroke: Yes Exam - Constitutional Vitals: Temp Pulse Resp BP Pulse Ox 99.8 F H 93 H 18 122/77 99 07/23/19 07:49 07/23/19 10:10 07/23/19 08:00 07/23/19 10:10 07/23/19 08:01 Plan Activity: advance as tolerated, fall precautions Weight Bearing Status: Weight Bear as Tolerated Diet: low fat, low salt Special Instructions: record daily BP diary Follow up with: EAN VELA [Other] - 3-5 Days CATRACHITO DAVENPORT MD [Staff Physician] - 7 Days SAEID LYNN MD [Staff Physician] - 7 Days Prescriptions: Aspirin [Aspirin BABY CHEW TAB] 81 mg PO QDAY #30 tab.chew carvediloL [Coreg] 6.25 mg PO DAILY #60 Depakote ER 250 mg PO BID #14 Oxybutynin [Ditropan] 5 mg PO DAILY #7 Fluticasone [Flonase] 100 mcg NS QDAY #1 bottle Aspirin EC [Halfprin EC] 81 mg PO DAILY #30 tablet. Pantoprazole [Protonix TAB] 40 mg PO QDAY #30 Azithromycin [Zithromax TAB] 500 mg PO QDAY #5 tablet
[2019-07-23 12:45] VITALS: BP 137/55
[2019-07-23] MEDS ORDERED: AZITHROMYCIN 250 MG TAB PO SCH (13:00)
--- NOTE | 2019-07-23 14:49 | Progress Note ---
Subjective Date of service: 07/23/19 Interval history: Patient is seen today for: Seen and examined at bedside; 24hour events reviewed; nursing and respiratory care staff consulted; no adverse overnight events reported to me; Objective Vital Signs - 12hr 07/23/19 07/23/19 07/23/19 04:56 06:39 07:49 Temperature 99.1 F 99.8 F H Pulse Rate 90 90 90 Pulse Rate [ Anterior Bilateral Throughout] Pulse Rate [ Posterior Bilateral Throughout] Respiratory 18 18 18 Rate Respiratory Rate [Anterior Bilateral Throughout] Respiratory Rate [Posterior Bilateral Throughout] Blood Pressure 136/53 136/53 112/77 O2 Sat by Pulse 94 94 Oximetry 07/23/19 07/23/19 07/23/19 08:00 08:01 10:10 Temperature Pulse Rate 93 H Pulse Rate [ 93 H Anterior Bilateral Throughout] Pulse Rate [ 93 H Posterior Bilateral Throughout] Respiratory 18 Rate Respiratory 18 Rate [Anterior Bilateral Throughout] Respiratory 18 Rate [Posterior Bilateral Throughout] Blood Pressure 122/77 O2 Sat by Pulse 99 Oximetry 07/23/19 12:12 Temperature 98.5 F Pulse Rate 87 Pulse Rate [ Anterior Bilateral Throughout] Pulse Rate [ Posterior Bilateral Throughout] Respiratory 18 Rate Respiratory Rate [Anterior Bilateral Throughout] Respiratory Rate [Posterior Bilateral Throughout] Blood Pressure 137/55 O2 Sat by Pulse 93 Oximetry CBC and BMP: 07/22/19 04:29 07/23/19 07:15 ABG, PT/INR, D-dimer: PT/INR, D-dimer PT 13.5 Sec. (12.2-14.9) 07/20/19 06:07 INR 1.02 (0.87-1.13) 07/20/19 06:07 Abnormal lab findings: Abnormal Labs 07/17/19 07/17/19 07/17/19 03:37 03:37 06:09 WBC Lymph % (Auto) 45.2 H Daggett % (Auto) 10.3 H Daggett # Seg Neutrophils % 39.6 L Seg Neutrophils # Chloride Carbon Dioxide 19 L BUN 21 H Creatinine 1.9 H Glucose Calcium Phosphorus NT-Pro-B Natriuret Pep 6517 H Urine Creatinine 07/19/19 07/20/19 07/21/19 05:37 06:07 06:02 WBC Lymph % (Auto) Daggett % (Auto) Daggett # Seg Neutrophils % Seg Neutrophils # Chloride 108.3 H Carbon Dioxide 21 L 21 L BUN 29 H 29 H 21 H Creatinine 1.8 H 1.8 H 1.7 H Glucose 126 H Calcium 8.2 L Phosphorus NT-Pro-B Natriuret Pep Urine Creatinine 07/22/19 07/22/19 07/22/19 04:29 04:29 22:42 WBC 13.7 H Lymph % (Auto) Daggett % (Auto) Daggett # 1.0 H Seg Neutrophils % 78.5 H Seg Neutrophils # 10.8 H Chloride Carbon Dioxide BUN 34 H Creatinine 2.4 H Glucose Calcium Phosphorus 4.90 H NT-Pro-B Natriuret Pep Urine Creatinine 143.6 H 07/23/19 07:15 WBC Lymph % (Auto) Daggett % (Auto) Daggett # Seg Neutrophils % Seg Neutrophils # Chloride Carbon Dioxide BUN 25 H Creatinine 1.9 H Glucose Calcium 8.2 L Phosphorus NT-Pro-B Natriuret Pep Urine Creatinine
--- NOTE | 2019-07-23 18:38 | Consultation ---
CONSULTING PHYSICIAN: Dr. Ramos. REASON FOR CONSULT: Acute TIA versus acute CVA. CHIEF COMPLAINT AND HISTORY OF PRESENT ILLNESS: The patient is a 64-year-old -[place] female with past medical history significant amongst other things for a diagnosis of paroxysmal atrial fibrillation, on Eliquis, and chronic obstructive lung disease, came to the Emergency Room complaining of worsening shortness of breath, has been going on for about a week. She also complains of orthopnea and dyspnea on exertion. She denied any gross or streaky hemoptysis. She was admitted to the hospital with diagnosis of acute diastolic CHF exacerbation, paroxysmal atrial fibrillation, admitted to the medical floor. She does have 10+ pack year tobacco smoking history. She admitted to continuing to smoke in the ER, but denied that to me. Yesterday, she started to complain of lightheadedness. She was a little bit hypotensive. She showed some signs of a possible TIA versus stroke. She was transferred to the Emergency Room after a Stroke Alert was called and she received tPA. When I stopped by to see her, she was resting in bed, feeling perhaps a little bit better. No vomiting or overt aspiration, no fevers or chills, no witnessed seizures, no bleeding. This really is as much of the history of presentation as I have. PAST MEDICAL HISTORY: According to the records significant amongst other things for a diagnosis of chronic obstructive lung disease. Paroxysmal atrial fibrillation. Chronic kidney disease. Schizoaffective disorder. Congestive heart failure. Gastroesophageal reflux disease. Hypertension. Hyperlipidemia. Aortic stenosis. Tobacco use disorder. Cocaine abuse. PAST SURGICAL HISTORY: She has had an ablation for paroxysmal atrial fibrillation. MEDICATIONS: She was on at the time I stopped by to see her were reviewed. Pertinent medications included the following: She was on allopurinol 100 mg p.o. daily, Brovana 15 mcg nebulized q. 12 hours, aripiprazole 10 mg p.o. daily, Lipitor 40 mg p.o. at bedtime, Pulmicort 0.5 mg nebulized q. 12 hours, carvedilol 3.125 mg p.o. b.i.d., Depakote ER 250 mg p.o. b.i.d., Flonase 100 mcg each nostril daily, Neurontin 300 mg p.o. b.i.d., Apresoline 25 mg p.o. q. 8 hours, Zofran 4 mg IV q. 8 hours p.r.n. nausea and vomiting, Ditropan 5 mg p.o. daily, Protonix 40 mg p.o. daily, tramadol 50 mg p.o. q. 6 hours p.r.n. pain and trazodone 50 mg p.o. at bedtime. ALLERGIES: TO CODEINE, SULFA DRUGS, LISINOPRIL, nature of this allergy is unknown. DIET: Well-built, slightly obese female. Denies acute weight loss or gain in the preceding few weeks to months. FAMILY AND SOCIAL HISTORY: Lives in the community, has about a [id number] tobacco smoking history. Denied alcohol or prescription drug use. She has cocaine abuse. There is a family history of hypertension. REVIEW OF SYSTEMS: No loss of consciousness. No new onset seizures. She has had the near syncope. Denies gross hematochezia or melena. Denies gross hematuria or dysuria. No hematemesis, no hemoptysis, no palpitations. Denies heat or cold intolerance. Complete 13-system review of systems obtained. Pertinent positives and/or negatives as in body of history above, otherwise noncontributory. PHYSICAL EXAMINATION: VITAL SIGNS: At presentation in the Emergency Room, she was afebrile, temperature 97.9 degrees Fahrenheit with a pulse of 76, respiratory rate of 18, blood pressure 158/78, O2 sats were 98%, inspired oxygen concentration at that time was not recorded. When I stopped by to see her, O2 sats were 95% on room air. GENERAL: She is elderly looking obese -[place] female, normocephalic, atraumatic, talking to me in slow sentences, but uninterrupted with normal respiratory effort at rest. HEAD, EYES, EARS, NOSE AND THROAT: She is anicteric. No conjunctival erythema. Oropharynx was moist. Mallampati #2 oropharynx. No gross jugular venous distention, no thyromegaly. NECK: Grossly, there were no palpable lymph nodes in the supraclavicular or submandibular lymph node chains. LUNGS: Auscultation of both lung pierre significant initially for diminished bilateral breath sounds, slightly prolonged expiratory phase, inspiratory crackles in the left lower lobe region. No wheezing. HEART: Heart sounds 1 and 2 are heard. They were regular in rate and rhythm at the time of my evaluation without overt rubs or murmurs. ABDOMEN: Soft, full, bowel sounds are positive, nontender, no palpable hepatosplenomegaly. EXTREMITIES: Without overt digital clubbing or cyanosis. No pedal edema. Pedal pulses were 2+. NEUROLOGIC: Pupils were equal, round, about 3 mm, reactive to light. Extraocular muscle movements were intact. Her tongue protruded centrally. Power was symmetric in both extremities and 4-5/5. No focal deficits. No spasticity. No obvious fasciculations. SKIN: Normal turgor in the areas examined without overt cellulitis or rash. PSYCHIATRIC: Her mood was depressed. Affect was anxious. LABORATORY DATA: From my review are as follows: Admission white cell count 6900, hemoglobin 11.1, hematocrit 34.6, platelet count was 311. Serum sodium 141, potassium 4.1, chloride 107, bicarb 19, BUN 21, creatinine 1.9, glucose was 99. Urine drug screen at presentation was presumptive positive for cocaine. White count is now 13,700 today, BUN 34, creatinine 2.9. Urinalysis done today is unremarkable. No blood cultures for my review. DIAGNOSTIC DATA: An MRI was done yesterday really and it did not show any acute process. It showed some white matter disease. MRA was done also of the head and neck, about 2-3 mm small aneurysm; however, no obvious stenosis or cut-off sign. ASSESSMENT: 1. Possible acute transient ischemic attack, status post tissue plasminogen activator. 2. Chronic obstructive pulmonary disease. 3. History of diastolic heart failure. 4. History of atrial fibrillation. 5. Acute on chronic kidney disease. 6. Schizoaffective disorder. 7. Cocaine abuse. 8. Tobacco use disorder. 7. Leukocytosis. PLAN: We will observe her, make sure that there is no complication from the tPA, otherwise I will defer to the neurologist for further management. Tobacco abuse cessation has been strongly counseled for up to 10 minutes at the bedside. We will continue long and short-acting bronchodilators as well as inhaled corticosteroids for her COPD. Supplemental oxygen as necessary will be given to keep sats greater than or equal to about 90%. She will be placed on GI and DVT prophylaxis. I will defer to the attending her chronic home medications should be continued. Flu and pneumonia vaccination will be addressed per protocol. Thank you very much for the consult. We will follow along and make further recommendations as picture progresses/becomes clearer. JOB# [id number] NATHALIA/BERENICE
[2019-07-23] MEDS ORDERED: carvediloL 6.25 MG TAB PO SCH (22:00)
== END 2019-07-23 15:24 | disposition home or self-care (01) | DRG 61 ==
LOC: ED 03:11 → 4A 07:53 → OBSVTOIN 07-21 13:05 → CC1 07-21 13:06 → 4A 07-22 16:46
PROVIDERS: ADMIT Internal Medicine; ATTEND Internal Medicine
PROC: 4A023N8 Measurement of Cardiac Sampling and Pressure, Bilateral, Percutaneous Approach (ICD-10-PCS; 2019-07-20)
PROC: B2111ZZ Fluoroscopy of Multiple Coronary Arteries using Low Osmolar Contrast (ICD-10-PCS; 2019-07-20)
PROC: B2151ZZ Fluoroscopy of Left Heart using Low Osmolar Contrast (ICD-10-PCS; 2019-07-20)
PROC: 3E03317 Introduction of Other Thrombolytic into Peripheral Vein, Percutaneous Approach (ICD-10-PCS; principal; 2019-07-21)
DX: G45.9 Transient cerebral ischemic attack, unspecified (principal); I50.41 Acute combined systolic (congestive) and diastolic (congestive) heart failure; I13.0 Hypertensive heart and chronic kidney disease with heart failure and stage 1 through stage 4 chronic kidney disease, or unspecified chronic kidney disease; N17.9 Acute kidney failure, unspecified; J81.1 Chronic pulmonary edema; I42.8 Other cardiomyopathies; F25.9 Schizoaffective disorder, unspecified; I48.0 Paroxysmal atrial fibrillation; J44.9 Chronic obstructive pulmonary disease, unspecified; K21.9 Gastro-esophageal reflux disease without esophagitis; M19.90 Unspecified osteoarthritis, unspecified site; E78.5 Hyperlipidemia, unspecified; F14.10 Cocaine abuse, uncomplicated; F17.210 Nicotine dependence, cigarettes, uncomplicated; N18.3 Chronic kidney disease, stage 3 (moderate); I25.10 Atherosclerotic heart disease of native coronary artery without angina pectoris; F32.9 Major depressive disorder, single episode, unspecified; I35.0 Nonrheumatic aortic (valve) stenosis; R06.03 Acute respiratory distress; I27.20 Pulmonary hypertension, unspecified; R55 Syncope and collapse; Z79.01 Long term (current) use of anticoagulants; Z88.5 Allergy status to narcotic agent; Z88.2 Allergy status to sulfonamides; I25.2 Old myocardial infarction; Z90.49 Acquired absence of other specified parts of digestive tract; Z90.710 Acquired absence of both cervix and uterus; Z82.49 Family history of ischemic heart disease and other diseases of the circulatory system; Z71.6 Tobacco abuse counseling
CPT/HCPCS: 36415; 70450; 70544; 70547; 70551; 71046; 76770; 80048; 80307; 81001; 82570; 82962; 83735; 83880; 84100; 84300; 84484; 85025; 85610; 87116; 93005; 93010; 93460; 94640; 94644; 94760; G0378; A9270-GY; C1751; C1760; C1894; J0360; J1644; J1940; J2250; J2405; J2930; J2997; J3010; J7030; J7040; Q9967

== ENCOUNTER 2019-08-05 18:03 | Emergency (ER) | payer MEDICARE ==
[2019-08-05] MEDS ORDERED: LORazepam 2 MG/ML VIAL IV STA (20:36)
[2019-08-05] MEDS ORDERED: ONDANSETRON 4 MG/2 ML INJ IV ONE (20:36)
[2019-08-05] MEDS ORDERED: FAMOTIDINE 20 MG/2 ML INJ IV ONE (20:36)
[2019-08-05] MEDS ORDERED: SODIUM CHLORIDE 0.9% 250ML 250 ML IV ONE (20:37)
--- NOTE | 2019-08-05 20:38 | Emergency Department Report ---
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 I have evaluated this patient in the past. Her glue mixer that she will be seeing shortly is Dr. Mercer Her past medical history includes hypertension, renal insufficiency, nonischemic cardiomyopathy, ejection fraction 45%, pulmonary hypertension, had a cardiac catheterization performed at this hospital last month, showing no evidence of aortic stenosis, basically normal coronary arteries, and moderately severe pulmonary hypertension. Abdominal surgical history includes total abdominal hysterectomy, bilateral oophorectomy, history of paroxysmal A. fib, status post ablation, not currently on anticoagulation, also has a history of cocaine use, and depression as well as psychiatric disease. She is brought to the hospital by emergency medical services with a complaint of multiple episodes green emesis, nausea and vomiting, and a few episodes of nonbloody, nonbilious clear watery yellow diarrhea. She denies irritative and obstructive urinary symptoms. She also has diffuse abdominal cramping and retching. There is no complaint of headache, neck pain, chest pain, new or different shortness of breath, focal extremity weakness and or numbness. While in the emergency room, she is having generalized twitching. Her symptoms are much improved with antiemetic medication, nonnarcotic pain medication, and Ativan. At the moment, the patient is sleeping comfortably, on her stretcher, and she is in no acute distress. -: days(s) Radiation: abdomen Quality: other Consistency: now resolved Improves with: medication Worsens with: eating - Related Data Home Medications Medication Instructions Recorded Confirmed Last Taken traZODone [Desyrel] 50 mg PO QHS 08/09/13 07/17/19 04/05/14 Budesonide/Formoterol Fumarate 10.2 gm IH Q4H 03/10/19 07/17/19 03/10/19 [Symbicort 160-4.5 Mcg Inhaler] Chlorpheniramine/Dextromethorp 1 each PO Q6HR 03/10/19 07/17/19 03/10/19 [Cough-Cold Tablet] allopurinoL [Zyloprim] 100 mg PO QDAY 03/10/19 07/17/19 03/10/19 methOCARBAMOL 500 mg PO Q6HR PRN 03/27/19 07/17/19 Unknown Previous Rx's Medication Instructions Recorded Last Taken Type AtorvaSTATin [Lipitor] 40 mg PO QHS #30 tablet 04/07/19 Unknown Rx Aspirin EC [Halfprin EC] 81 mg PO DAILY #30 tablet. 07/18/19 Unknown Rx Depakote ER 250 mg PO BID #14 07/18/19 Unknown Rx Fluticasone [Flonase] 100 mcg NS QDAY #1 bottle 07/18/19 Unknown Rx Oxybutynin [Ditropan] 5 mg PO DAILY #7 07/18/19 Unknown Rx Pantoprazole [Protonix TAB] 40 mg PO QDAY #30 07/18/19 Unknown Rx carvediloL [Coreg] 6.25 mg PO DAILY #60 07/18/19 Unknown Rx Aspirin [Aspirin BABY CHEW TAB] 81 mg PO QDAY #30 tab.chew 07/23/19 Unknown Rx Acetaminophen [Non-Aspirin Extra 500 mg PO Q6HR PRN #30 tablet 08/05/19 Unknown Rx Strength] Agnieszka Root [Agnieszka] 250 mg PO QID PRN #30 capsule 08/05/19 Unknown Rx Metoclopramide [Reglan] 10 mg PO QID PRN #30 tablet 08/05/19 Unknown Rx Allergies Allergy/AdvReac Type Severity Reaction Status Date / Time codeine Allergy Rash Verified 08/05/19 18:06 Sulfa (Sulfonamide Allergy Rash Verified 08/05/19 18:06 Antibiotics) lisinopril AdvReac Unknown Verified 08/05/19 18:06 ED Review of Systems ROS: Stated complaint: N/V Other details as noted in HPI Constitutional: malaise. denies: fever Eyes: denies: eye discharge ENT: denies: congestion Respiratory: denies: wheezing Cardiovascular: denies: syncope Gastrointestinal: abdominal pain, nausea, vomiting, diarrhea Genitourinary: as per HPI Musculoskeletal: as per HPI Skin: as per HPI Neurological: as per HPI Psychiatric: as per HPI Hematological/Lymphatic: as per HPI ED Past Medical Hx - Past Medical History Previous Medical History?: Yes Hx Hypertension: Yes Hx Heart Attack/AMI: Yes Hx Congestive Heart Failure: Yes Hx GERD: Yes Hx Renal Disease: Yes (stage 3) Hx Arthritis: Yes (Osteo) Hx Psychiatric Treatment: Yes (SCHIZO-AFFECTIVE) Hx COPD: Yes Additional medical history: AFIB, bells palsy, back pain - Surgical History Hx Cholecystectomy: Yes Additional Surgical History: Cholecystectomy and hysterectomy, rt roary cuff, heart ablation - Social History Smoking Status: Current Every Day Smoker - Medications Home Medications: Home Medications Medication Instructions Recorded Confirmed Last Taken Type traZODone [Desyrel] 50 mg PO QHS 08/09/13 07/17/19 04/05/14 History Budesonide/Formoterol Fumarate 10.2 gm IH Q4H 03/10/19 07/17/19 03/10/19 History [Symbicort 160-4.5 Mcg Inhaler] Chlorpheniramine/Dextromethorp 1 each PO Q6HR 03/10/19 07/17/19 03/10/19 History [Cough-Cold Tablet] allopurinoL [Zyloprim] 100 mg PO QDAY 03/10/19 07/17/19 03/10/19 History methOCARBAMOL 500 mg PO Q6HR PRN 03/27/19 07/17/19 Unknown History AtorvaSTATin [Lipitor] 40 mg PO QHS #30 tablet 04/07/19 07/17/19 Unknown Rx Aspirin EC [Halfprin EC] 81 mg PO DAILY #30 tablet. 07/18/19 Unknown Rx Depakote ER 250 mg PO BID #14 07/18/19 Unknown Rx Fluticasone [Flonase] 100 mcg NS QDAY #1 bottle 07/18/19 Unknown Rx Oxybutynin [Ditropan] 5 mg PO DAILY #7 07/18/19 Unknown Rx Pantoprazole [Protonix TAB] 40 mg PO QDAY #30 07/18/19 Unknown Rx carvediloL [Coreg] 6.25 mg PO DAILY #60 07/18/19 Unknown Rx Aspirin [Aspirin BABY CHEW TAB] 81 mg PO QDAY #30 tab.chew 07/23/19 Unknown Rx Acetaminophen [Non-Aspirin Extra 500 mg PO Q6HR PRN #30 tablet 08/05/19 Unknown Rx Strength] Agnieszka Root [Agnieszka] 250 mg PO QID PRN #30 capsule 08/05/19 Unknown Rx Metoclopramide [Reglan] 10 mg PO QID PRN #30 tablet 08/05/19 Unknown Rx ED Physical Exam - General Limitations: No Limitations General appearance: alert, anxious, in distress, obese - Head Head exam: Present: atraumatic, normocephalic - Eye Eye exam: Present: normal appearance, EOMI. Absent: nystagmus - ENT ENT exam: Present: normal exam, normal orophraynx, mucous membranes moist, normal external ear exam - Neck Neck exam: Present: normal inspection, full ROM. Absent: tenderness, meningismus - Respiratory Respiratory exam: Present: normal lung sounds bilaterally. Absent: respiratory distress - Cardiovascular Cardiovascular Exam: Present: regular rate, normal rhythm, normal heart sounds. Absent: bradycardia, tachycardia, irregular rhythm, systolic murmur, diastolic murmur, rubs, gallop - GI/Abdominal GI/Abdominal exam: Present: soft, normal bowel sounds. Absent: distended, tenderness, guarding, rebound, rigid, pulsatile mass - Extremities Exam Extremities exam: Present: normal inspection, full ROM, other (2+ pulses noted in the bilateral upper and lower extremities. There is no palpable cord. negative Homans sign. Muscular compartments are soft. The pelvis is stable.). Absent: pedal edema, calf tenderness - Back Exam Back exam: Present: normal inspection, full ROM. Absent: tenderness, CVA tenderness (R), CVA tenderness (L), paraspinal tenderness, vertebral tenderness - Neurological Exam Neurological exam: Present: alert, other (There is no facial droop. The tongue is midline. Extraocular movements are intact bilaterally. There is 5 out of 5 strength in bilateral upper and lower extremities. Sensation is intact to light touch bilateral upper and lower extremities. There is a normal gait.). Absent: motor sensory deficit - Psychiatric Psychiatric exam: Present: anxious - Skin Skin exam: Present: warm, dry, intact, normal color. Absent: rash ED Course Vital Signs 08/05/19 08/05/19 08/05/19 18:11 20:25 20:30 Temperature 98.9 F Pulse Rate 77 71 Respiratory 18 22 36 H Rate Blood Pressure 181/68 O2 Sat by Pulse 98 99 99 Oximetry 08/05/19 08/05/19 08/05/19 20:31 20:45 21:00 Temperature Pulse Rate 71 69 Respiratory 34 H 19 46 H Rate Blood Pressure 155/68 155/68 129/69 O2 Sat by Pulse 98 98 96 Oximetry 08/05/19 08/05/19 08/05/19 21:31 22:08 23:00 Temperature Pulse Rate 74 75 74 Respiratory 24 22 25 H Rate Blood Pressure 155/68 157/51 O2 Sat by Pulse 97 98 95 Oximetry 08/05/19 08/06/19 08/06/19 23:15 00:00 01:00 Temperature Pulse Rate 72 75 71 Respiratory 24 24 21 Rate Blood Pressure 157/51 157/51 O2 Sat by Pulse 99 92 95 Oximetry 08/06/19 03:00 Temperature Pulse Rate 77 Respiratory 21 Rate Blood Pressure O2 Sat by Pulse 96 Oximetry ED Medical Decision Making - Lab Data Result diagrams: 08/05/19 20:48 08/05/19 20:48 Vital Signs 08/05/19 08/05/19 08/05/19 18:11 20:25 20:31 Temperature 98.9 F Pulse Rate 77 71 71 Respiratory 18 22 34 H Rate Blood Pressure 181/68 155/68 O2 Sat by Pulse 98 99 98 Oximetry 08/05/19 08/05/19 20:45 21:00 Temperature Pulse Rate 69 Respiratory 19 46 H Rate Blood Pressure 155/68 129/69 O2 Sat by Pulse 98 96 Oximetry Lab Results 08/05/19 08/05/19 08/05/19 Range/Units 20:48 20:48 20:48 Hgb 11.4 (10.1-14.3) gm/dl Hct 35.6 (30.3-42.9) % Plt Count 405 (140-440) K/mm3 Sodium 140 (137-145) mmol/L Potassium 3.9 (3.6-5.0) mmol/L Chloride 104.0 (98-107) mmol/L Carbon Dioxide 19 L (22-30) mmol/L Anion Gap 21 mmol/L BUN 19 H (7-17) mg/dL Creatinine 1.8 H (0.7-1.2) mg/dL Estimated GFR 34 ml/min BUN/Creatinine Ratio 11 % Glucose 84 (65-100) mg/dL Calcium 8.9 (8.4-10.2) mg/dL Magnesium 1.80 (1.7-2.3) mg/dL Total Bilirubin 0.30 (0.1-1.2) mg/dL AST 21 (5-40) units/L ALT 17 (7-56) units/L Alkaline Phosphatase 90 (35-129) units/L Total Creatine Kinase 91 (30-135) units/L Total Protein 7.0 (6.3-8.2) g/dL Albumin 3.6 L (3.9-5) g/dL Albumin/Globulin Ratio 1.1 % Lipase 30 (13-60) units/L - EKG Data -: EKG Interpreted by Il - EKG Data Interpretation: unchanged when compared t (07/21/2011) 08/05/19 21:39 Sinus rhythm, 67 bpm, left axis deviation, left ventricular hypertrophy, left anterior fascicular block, atrial enlargement, poor R wave progression. The EKG is abnormal, it is not consistent with ST elevation myocardial infarction. - Radiology Data Radiology results: report reviewed, image reviewed Print Report Referring Physician: BRAYAN DOE Patient Name: FRANCIA COATS Date of : 1955 Sex: Female Report Date: 2019-08-05 Report Status: Finalized Findings [facility] [address] [place] [address] Cat Scan Report Signed Patient: FRANCIA COATS MR#: [id number] : 1955 Acct:[id number] Age/Sex: 64 / F ADM Date: 08/05/19 Loc: ED Attending Dr: Ordering Physician: BRAYAN DOE MD Date of Service: 08/05/19 Procedure(s): CT abdomen pelvis wo con Accession Number(s): [id number] cc: BRAYAN DOE MD CT abdomen pelvis wo con INDICATION: MAIN: MID abd pain. NAUSEA, VOMITING, DIARRHEA. . TECHNIQUE: All CT scans at this location are performed using CT dose reduction for ALARA by means of automated exposure control. COMPARISON: None available. FINDINGS: No acute disease in the lung bases. Mild cardiomegaly. Cholecystectomy. Liver, spleen, pancreas appear unremarkable. Benign-appearing left renal cyst and benign-appearing right adrenal nodule. Kidneys and adrenals are otherwise negative. Abdominal aorta is atherosclerotic and slightly ectatic, maximum diameter 2.6 cm. No significant retroperitoneal adenopathy. Pelvis Appendix cannot be identified. No free fluid or inflammation. Urinary bladder is mostly collapsed but grossly negative. Uterus is absent. Mild sigmoid diverticulosis but no evidence of diverticulitis or other acute bowel abnormality. No acute skeletal lesions. IMPRESSION: 1. No acute abnormalities. Signer Name: Chu Silva MD Signed: 08/05/2019 9:24 PM Workstation Name: [id number] Transcribed By: TM Dictated By: Chu Silva MD Electronically Authenticated By: Chu Silva MD Signed Date/Time: 08/05/192123 DD/ 19 TD/TT: - Medical Decision Making Differential diagnosis, including but not limited to: Colitis, diverticulitis, enteritis, gastroenteritis, dehydration, anxiety Assessment and plan: 64-year-old female with a complaint of abdominal pain, nausea, vomiting and diarrhea. While I am speaking to the patient, she appears to be quite anxious, and has generalized abdominal contractions. However, her abdomen is nontender. She is treated with appropriate medications and all of her symptoms have resolved. Her objective testing is unremarkable. Her EKG is unchanged from prior. She did not endorse any urinary symptoms. She is sleeping comfortably at this time, and in no acute distress. Neither myself nor the nurse caring for the patient have witnessed any episodes of nausea, vomiting or diarrhea. Decreased bicarbonate is likely secondary to history of GI losses. The patient does not appear to have an emergent medical condition at this time, and she is suitable for discharge as an outpatient. She did not endorse any urinary symptoms. Critical care attestation.: If time is entered above; I have spent that time in minutes in the direct care of this critically ill patient, excluding procedure time. ED Disposition Clinical Impression: CKD (chronic kidney disease), History of nausea and vomiting, History of diarrhea, History of abdominal pain Disposition: -01 TO HOME OR SELFCARE Is pt being admited?: No Does the pt Need Aspirin: No Condition: Stable Additional Instructions: Advance diet as tolerated. Avoid consumption of Motrin, ibuprofen, Naprosyn, Aleve, heavy and/or spicy foods. Avoid consumption of alcohol, and cocaine/recreational drugs. Take the pain medication, nausea medication as needed/directed, patient may start to consume fiber, such as Metamucil, oatmeal, apples, bread, rice, toast, squash or pumpkin. Please drink 4 cups of water per day. Follow-up with a primary care doctor within the next 7 to 10 days. Follow-up with a glue mixer within the next [address] Mercer is a local glue mixer. Follow-up with a kidney doctor/nephrology specialist within the next [address] ruby is a local nephrology specialist. Please return to the emergency room right away with new, worsened or different symptoms, or symptoms not present on the initial emergency room evaluation. Prescriptions: Agnieszka Root [Agnieszka] 250 mg PO QID PRN #30 capsule PRN Reason: Nausea Acetaminophen [Non-Aspirin Extra Strength] 500 mg PO Q6HR PRN #30 tablet PRN Reason: Pain , Severe (7-10) Metoclopramide [Reglan] 10 mg PO QID PRN #30 tablet PRN Reason: Nausea Referrals: GRISEL RUBY MD [Staff Physician] - as needed LIEN MERCER MD [Staff Physician] - as needed FRANDY SAMUELS MD [Staff Physician] - 7-10 days
[2019-08-05 21:12] LABS: Hematocrit 35.6 % (30.3-42.9); Hemoglobin 11.4 gm/dl (10.1-14.3)
--- NOTE | 2019-08-05 21:28 | Cat Scan Report ---
CT abdomen pelvis wo con INDICATION: MAIN: MID abd pain. NAUSEA, VOMITING, DIARRHEA. . TECHNIQUE: All CT scans at this location are performed using CT dose reduction for ALARA by means of automated e xposure control. COMPARISON: None available. FINDINGS: No acute disease in the lung bases. Mild cardiomegaly. Cholecystectomy. Liver, spleen, pancreas appea r unremarkable. Benign-appearing left renal cyst and benign-appearing right adrenal nodule. Kidneys a nd adrenals are otherwise negative. Abdominal aorta is atherosclerotic and slightly ectatic, maximum diameter 2.6 cm. No significant retroperitoneal adenopathy. Pelvis Appendix cannot be identified. No free fluid or inflammation. Urinary bladder is mostly collapsed but grossly negative. Uterus is absent. Mild sigmoid diverticulosis but no evidence of diverticulitis or other acute bowel abnormality. No acute skeletal lesions. IMPRESSION: 1. No acute abnormalities. Signer Name: Chu Silva MD Signed: 08/05/2019 9:24 PM Workstation Name: [id number]
[2019-08-05 21:29] LABS: Albumin 3.6 g/dL (3.9-5); Calcium 8.9 mg/dL (8.4-10.2)
[2019-08-05 23:21] VITALS: BP 157/51
== END 2019-08-06 07:56 | disposition home or self-care (01) ==
LOC: ED 18:03
DX: I13.0 Hypertensive heart and chronic kidney disease with heart failure and stage 1 through stage 4 chronic kidney disease, or unspecified chronic kidney disease (principal); I50.9 Heart failure, unspecified; N18.6 End stage renal disease; R11.2 Nausea with vomiting, unspecified; R10.9 Unspecified abdominal pain; R19.7 Diarrhea, unspecified; I25.2 Old myocardial infarction; K21.9 Gastro-esophageal reflux disease without esophagitis; J44.9 Chronic obstructive pulmonary disease, unspecified; F20.9 Schizophrenia, unspecified; M19.90 Unspecified osteoarthritis, unspecified site; I48.91 Unspecified atrial fibrillation; F17.200 Nicotine dependence, unspecified, uncomplicated; Z88.2 Allergy status to sulfonamides; Z88.6 Allergy status to analgesic agent; Z79.899 Other long term (current) drug therapy; Z90.49 Acquired absence of other specified parts of digestive tract; Z90.710 Acquired absence of both cervix and uterus
CPT/HCPCS: 36415; 74176; 80053; 80164; 82550; 83690; 83735; 85014; 85018; 85049; 93005; 93010; 96374; 96375; 99284; J2060; J2405; J7050

== ENCOUNTER 2019-09-27 11:36 | Emergency (ER) | payer MEDICARE ==
[2019-09-27] MEDS ORDERED: KETOROLAC 30 MG/1 ML INJ IM ONE (13:36)
[2019-09-27 13:41] LABS: Basophils % (Auto) 0.2 % (0.0-1.8); Eosinophils # (Auto) 0.1 K/mm3 (0.0-0.4); Eosinophils % (Auto) 1.1 % (0.0-4.3); Hematocrit 39.4 % (30.3-42.9); Hemoglobin 12.6 gm/dl (10.1-14.3); Lymphocytes # (Auto) 1.6 K/mm3 (1.2-5.4); Lymphocytes % (Auto) 15.4 % (13.4-35.0); Mean Corpuscular HGB Conc 32 % (30-34); Mean Corpuscular Volume 86 fl (79-97); Monocytes # (Auto) 1.1 K/mm3 (0.0-0.8); Monocytes % (Auto) 10.2 % (0.0-7.3); Platelet Count 344 K/mm3 (140-440); Red Blood Count 4.61 M/mm3 (3.65-5.03); Red Cell Distribution Width 16.6 % (13.2-15.2)
[2019-09-27 13:59] LABS: Bilirubin,Urine NEG (Negative); Blood,Urine NEG (Negative); Color,Urine Yellow (Yellow); Mucus,Urine FEW /HPF; Protein,Urine <15 mg/dL mg/dL (Negative)
--- NOTE | 2019-09-27 14:03 | XRay Report ---
CHEST 1 VIEW INDICATION: posterior CP. COMPARISON: 07/17/2019 FINDINGS: Support devices: None. Heart: Within normal limits. Pulmonary vessels: Normal. Lungs/Pleura: No acute air space or interstitial disease. Bilateral interstitial markings are less pr ominent than on the last exam. Additional findings: None. IMPRESSION: 1. No acute findings. Signer Name: Miki Simpson MD Signed: 09/27/2019 1:58 PM Workstation Name: [id number]
[2019-09-27 14:04] LABS: Alanine Aminotransferase 9 units/L (7-56); Albumin 3.8 g/dL (3.9-5); BUN/Creatinine Ratio 12; Bilirubin,Direct < 0.2 mg/dL (0-0.2); Blood Urea Nitrogen 33 mg/dL (7-17); Calcium 9.2 mg/dL (8.4-10.2); Hemolysis Index 1
[2019-09-27 14:35] VITALS: BP 149/65
--- NOTE | 2019-09-27 14:40 | Emergency Department Report ---
ED General Adult HPI - General Chief complaint: Back Pain/Injury Stated complaint: NAUSEA,VOMITING,DIARRHEA/BACK PAIN Time Seen by Provider: 09/27/19 12:24 Source: patient, EMS Mode of arrival: Stretcher Limitations: No Limitations - History of Present Illness Initial comments: This is a 64-year-old female with multiple comorbidities who has been seen at this facility with significant regularity. She presents today with bilateral posterior chest pain above her flank area. She states that this is painful when she moves or bends. She does not endorse recent cough, fever, pleuritic pain or chills. She denies any recent travel. She is not on an anticoagulant. She denies a history of venous thromboembolism. She also denies any leg pain or swelling. She has a history of a psychiatric disorder and cocaine abuse. Last discharge summary 220 is indicative of the following: Discharge Diagnosis; / Acute TIA - called stroke alert 07/21, s/p tPA - transferred to ICU - MRI brain showed white matter disease /Hypertension; normotensive now Had episodes of low BP - readjusted medications with gentle iv fluid /KARI on Chronic kidney disease stage III; not POA - likely due to due to low BP Monitor renal function, avoid nephrotoxins, nephrology following Continue mild IV fluid for now, creatinine slightly trended up today /Acute systolic congestive heart failure [Heart failure with reduced LV function] s/p diuretics, input output monitoring; cont beta-blockers with reduce dose Low-sodium diet, fluid restriction, cardiology following cardiac cath showed Ef of 45% /Aortic stenosis -mild, need medical Mx Status post cardiac cath to further assess for aortic stenosis in light of patient's complaints of dyspnea R/L heart cath: Moderate-severe pulm hypertension, PASP 60. No significant aortic stenosis. Normal coronaries. LVEF 45%. /Respiratory distress vs dyspnea on exertion -due to pHTN -Complains of dyspnea on ambulation but maintaining O2 sat greater than 92% on pulse ox -Per 2D echo patient has mild aortic stenosis, cardiac cath today showed moderate to severe pulmonary hypertension - PASP 60. 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 evaluation of pHTN /History of paroxysmal atrial fibrillation; status post ablation Patient no longer on anticoagulation Continue current management cardiology following /History of schizoaffective disorder; With depression, continue psych medications psych consult if needed /Ongoing tobacco use; smoking cessation counseling Nicotine patch as needed /Cocaine abuse, counselled, UDS is positive for cocaine --DVT prophylaxis; Lovenox d/c home with outpt f/u -: Gradual, hour(s) Location: back Radiation: non-radiation Severity scale (0 -10): 7 Quality: aching Consistency: constant Improves with: none Worsens with: movement Associated Symptoms: denies other symptoms Treatments Prior to Arrival: none - Related Data Home Medications Medication Instructions Recorded Confirmed Last Taken traZODone [Desyrel] 50 mg PO QHS 08/09/13 07/17/19 04/05/14 Budesonide/Formoterol Fumarate 10.2 gm IH Q4H 03/10/19 07/17/19 03/10/19 [Symbicort 160-4.5 Mcg Inhaler] Chlorpheniramine/Dextromethorp 1 each PO Q6HR 03/10/19 07/17/19 03/10/19 [Cough-Cold Tablet] allopurinoL [Zyloprim] 100 mg PO QDAY 03/10/19 07/17/19 03/10/19 methOCARBAMOL 500 mg PO Q6HR PRN 03/27/19 07/17/19 Unknown Previous Rx's Medication Instructions Recorded Last Taken Type AtorvaSTATin [Lipitor] 40 mg PO QHS #30 tablet 04/07/19 Unknown Rx Aspirin EC [Halfprin EC] 81 mg PO DAILY #30 tablet. 07/18/19 Unknown Rx Depakote ER 250 mg PO BID #14 07/18/19 Unknown Rx Fluticasone [Flonase] 100 mcg NS QDAY #1 bottle 07/18/19 Unknown Rx Oxybutynin [Ditropan] 5 mg PO DAILY #7 07/18/19 Unknown Rx Pantoprazole [Protonix TAB] 40 mg PO QDAY #30 07/18/19 Unknown Rx carvediloL [Coreg] 6.25 mg PO DAILY #60 07/18/19 Unknown Rx Aspirin [Aspirin BABY CHEW TAB] 81 mg PO QDAY #30 tab.chew 07/23/19 Unknown Rx Acetaminophen [Non-Aspirin Extra 500 mg PO Q6HR PRN #30 tablet 08/05/19 Unknown Rx Strength] Agnieszka Root [Agnieszka] 250 mg PO QID PRN #30 capsule 08/05/19 Unknown Rx Metoclopramide [Reglan] 10 mg PO QID PRN #30 tablet 08/05/19 Unknown Rx traMADoL [Ultram 50 MG tab] 50 mg PO Q6HR PRN #7 tablet 09/27/19 Unknown Rx Allergies Allergy/AdvReac Type Severity Reaction Status Date / Time codeine Allergy Rash Verified 08/05/19 18:06 Sulfa (Sulfonamide Allergy Rash Verified 08/05/19 18:06 Antibiotics) lisinopril AdvReac Unknown Verified 08/05/19 18:06 ED Review of Systems ROS: Stated complaint: NAUSEA,VOMITING,DIARRHEA/BACK PAIN Other details as noted in HPI Constitutional: denies: chills, fever Eyes: denies: eye pain, eye discharge, vision change ENT: denies: ear pain, throat pain Respiratory: denies: cough, shortness of breath, wheezing Cardiovascular: chest pain. denies: palpitations Endocrine: no symptoms reported Gastrointestinal: denies: abdominal pain, nausea, diarrhea Genitourinary: denies: urgency, dysuria, discharge Musculoskeletal: as per HPI. denies: back pain, joint swelling, arthralgia Skin: denies: rash, lesions Neurological: denies: headache, weakness, paresthesias Psychiatric: denies: anxiety, depression Hematological/Lymphatic: denies: easy bleeding, easy bruising ED Past Medical Hx - Past Medical History Previous Medical History?: Yes Hx Hypertension: Yes Hx Heart Attack/AMI: Yes Hx Congestive Heart Failure: Yes Hx GERD: Yes Hx Renal Disease: Yes (stage 3) Hx Arthritis: Yes (Osteo) Hx Psychiatric Treatment: Yes (SCHIZO-AFFECTIVE) Hx COPD: Yes Additional medical history: AFIB, bells palsy, back pain - Surgical History Past Surgical History?: No Hx Cholecystectomy: Yes Additional Surgical History: Cholecystectomy and hysterectomy, rt roary cuff, heart ablation - Social History Smoking Status: Current Every Day Smoker Substance Use Type: None - Medications Home Medications: Home Medications Medication Instructions Recorded Confirmed Last Taken Type traZODone [Desyrel] 50 mg PO QHS 08/09/13 07/17/19 04/05/14 History Budesonide/Formoterol Fumarate 10.2 gm IH Q4H 03/10/19 07/17/19 03/10/19 History [Symbicort 160-4.5 Mcg Inhaler] Chlorpheniramine/Dextromethorp 1 each PO Q6HR 03/10/19 07/17/19 03/10/19 History [Cough-Cold Tablet] allopurinoL [Zyloprim] 100 mg PO QDAY 03/10/19 07/17/19 03/10/19 History methOCARBAMOL 500 mg PO Q6HR PRN 03/27/19 07/17/19 Unknown History AtorvaSTATin [Lipitor] 40 mg PO QHS #30 tablet 04/07/19 07/17/19 Unknown Rx Aspirin EC [Halfprin EC] 81 mg PO DAILY #30 tablet. 07/18/19 Unknown Rx Depakote ER 250 mg PO BID #14 07/18/19 Unknown Rx Fluticasone [Flonase] 100 mcg NS QDAY #1 bottle 07/18/19 Unknown Rx Oxybutynin [Ditropan] 5 mg PO DAILY #7 07/18/19 Unknown Rx Pantoprazole [Protonix TAB] 40 mg PO QDAY #30 07/18/19 Unknown Rx carvediloL [Coreg] 6.25 mg PO DAILY #60 07/18/19 Unknown Rx Aspirin [Aspirin BABY CHEW TAB] 81 mg PO QDAY #30 tab.chew 07/23/19 Unknown Rx Acetaminophen [Non-Aspirin Extra 500 mg PO Q6HR PRN #30 tablet 08/05/19 Unknown Rx Strength] Agnieszka Root [Agnieszka] 250 mg PO QID PRN #30 capsule 08/05/19 Unknown Rx Metoclopramide [Reglan] 10 mg PO QID PRN #30 tablet 08/05/19 Unknown Rx traMADoL [Ultram 50 MG tab] 50 mg PO Q6HR PRN #7 tablet 09/27/19 Unknown Rx ED Physical Exam - General Limitations: Other (Consistent with psychiatric disorder) General appearance: other (Somewhat agitated) - Head Head exam: Present: atraumatic, normocephalic - Eye Eye exam: Present: normal appearance. Absent: scleral icterus - ENT ENT exam: Present: mucous membranes moist - Neck Neck exam: Present: normal inspection. Absent: tenderness, meningismus - Respiratory Respiratory exam: Present: normal lung sounds bilaterally, chest wall tenderness. Absent: respiratory distress - Cardiovascular Cardiovascular Exam: Present: regular rate, normal rhythm. Absent: systolic murmur, diastolic murmur, rubs, gallop - GI/Abdominal GI/Abdominal exam: Present: soft, normal bowel sounds. Absent: distended, tenderness, guarding, rebound, rigid - Extremities Exam Extremities exam: Present: normal inspection. Absent: tenderness, pedal edema, joint swelling, calf tenderness - Back Exam Back exam: Present: normal inspection. Absent: CVA tenderness (R), CVA tenderness (L), muscle spasm, paraspinal tenderness, vertebral tenderness - Neurological Exam Neurological exam: Present: alert, oriented X3, CN II-XII intact. Absent: motor sensory deficit - Psychiatric Psychiatric exam: Present: agitated, flat affect - Skin Skin exam: Present: warm, dry, intact, normal color. Absent: rash ED Course Vital Signs 09/27/19 09/27/19 09/27/19 11:48 11:53 12:00 Temperature 98.1 F Pulse Rate 74 73 Respiratory 15 22 Rate Blood Pressure 152/69 Blood Pressure 149/59 [Right] O2 Sat by Pulse 100 100 98 Oximetry 09/27/19 09/27/19 09/27/19 12:15 12:30 12:45 Temperature Pulse Rate 75 78 80 Respiratory 20 17 24 Rate Blood Pressure 168/71 160/72 157/73 Blood Pressure [Right] O2 Sat by Pulse 100 98 99 Oximetry 09/27/19 09/27/19 09/27/19 13:00 13:15 13:54 Temperature Pulse Rate 77 78 Respiratory 20 18 16 Rate Blood Pressure 140/59 149/65 Blood Pressure [Right] O2 Sat by Pulse 98 99 Oximetry - Reevaluation(s) Reevaluation #1: On reexamination the patient is asymptomatic. She is resting comfortably. We have discussed her findings. She states she will follow-up with her usual physicians. 09/27/19 14:45 ED Medical Decision Making - Lab Data Result diagrams: 09/27/19 13:02 09/27/19 13:02 Laboratory Results - last 24 hr 09/27/19 09/27/19 09/27/19 13:02 13:02 13:32 WBC 10.4 RBC 4.61 Hgb 12.6 Hct 39.4 MCV 86 MCH 27 L MCHC 32 RDW 16.6 H Plt Count 344 Lymph % (Auto) 15.4 [place] % (Auto) 10.2 H Eos % (Auto) 1.1 Baso % (Auto) 0.2 Lymph # 1.6 [place] # 1.1 H Eos # 0.1 Baso # 0.0 Seg Neutrophils % 73.1 H Seg Neutrophils # 7.6 Sodium 138 Potassium 4.5 Chloride 101.5 Carbon Dioxide 24 Anion Gap 17 BUN 33 H Creatinine 2.7 H Estimated GFR 22 BUN/Creatinine Ratio 12 Glucose 97 Calcium 9.2 Magnesium 2.50 H Total Bilirubin 0.20 Direct Bilirubin < 0.2 Indirect Bilirubin 0.0 AST 14 ALT 9 Alkaline Phosphatase 95 Total Protein 6.7 Albumin 3.8 L Albumin/Globulin Ratio 1.3 Urine Color Yellow Urine Turbidity Clear Urine pH 6.0 Ur Specific [place] 1.023 Urine Protein <15 mg/dl Urine Glucose (UA) Neg Urine Ketones Neg Urine Blood Neg Urine Nitrite Neg Urine Bilirubin Neg Urine Urobilinogen 2.0 Ur Leukocyte Esterase Neg Urine WBC (Auto) 1.0 Urine RBC (Auto) 2.0 U Epithel Cells (Auto) 2.0 Urine Mucus Few - Radiology Data Radiology results: report reviewed (No acute finding), image reviewed Critical care attestation.: If time is entered above; I have spent that time in minutes in the direct care of this critically ill patient, excluding procedure time. ED Disposition Clinical Impression: Musculoskeletal pain, Chronic renal insufficiency, stage III (moderate) Schizoaffective disorder Qualifiers: Schizoaffective disorder type: unspecified Qualified Code(s): F25.9 - Schizoaffective disorder, unspecified Disposition: DC- TO HOME OR SELFCARE Is pt being admited?: No Does the pt Need Aspirin: No Condition: Stable Instructions: Chest Pain (ED), Chronic Kidney Disease (ED), Back Pain (ED) Additional Instructions: Return any acute change or problem. Follow-up with primary care and your kidney doctor, Dr. Ruby. Return to the emergency department any acute change or p roblem. Also follow-up with your mental health provider. Prescriptions: traMADoL [Ultram 50 MG tab] 50 mg PO Q6HR PRN #7 tablet PRN Reason: Pain Referrals: GRISEL RUBY MD [Staff Physician] - 3-5 Days LYRIC SIBLEY [Other] - 2-3 Days Time of Disposition: 14:48
== END 2019-09-27 15:10 | disposition home or self-care (01) ==
LOC: ED 11:36
DX: M79.18 Myalgia, other site (principal); F25.9 Schizoaffective disorder, unspecified; I13.0 Hypertensive heart and chronic kidney disease with heart failure and stage 1 through stage 4 chronic kidney disease, or unspecified chronic kidney disease; N18.3 Chronic kidney disease, stage 3 (moderate); I50.9 Heart failure, unspecified; I25.2 Old myocardial infarction; M13.88 Other specified arthritis, other site; J44.9 Chronic obstructive pulmonary disease, unspecified; G51.0 Bell's palsy; F17.200 Nicotine dependence, unspecified, uncomplicated; Z90.49 Acquired absence of other specified parts of digestive tract; Z88.6 Allergy status to analgesic agent; Z88.2 Allergy status to sulfonamides
CPT/HCPCS: 36415; 71045; 80048; 80076; 81001; 83735; 85025; 96372; 99284; J1885

== ENCOUNTER 2019-10-28 03:01 | Inpatient (IN) | payer MEDICARE ==
[2019-10-28] MEDS ORDERED: IPRATROPIUM 0.02% NEBU 2.5 ML IH ONE ×2 (03:48→03:51)
[2019-10-28] MEDS ORDERED: ALBUTEROL 2.5 MG/3 ML NEBU IH ONE ×2 (03:49→03:51)
[2019-10-28] MEDS ORDERED: methylPREDNISolone Sod Succinate 125 MG/2 ML INJ IV ONE (03:51)
[2019-10-28] MEDS ORDERED: MAGNESIUM SULFATE 2 GM/50 ML BAG IV ONE (03:51)
[2019-10-28] MEDS ORDERED: AZITHROMYCIN 500 MG in SODIUM CHLORIDE 0.9% 250ML 250 ML IV ONE (03:51)
--- NOTE | 2019-10-28 03:59 | Emergency Department Report ---
ED General Adult HPI - General Chief complaint: Dyspnea/Respdistress Stated complaint: DIFFICULTY BREATHING PUI?: Yes Time Seen by Provider: 10/28/19 03:10 Source: patient, EMS (Verbal report received from emergency medical services. EMS documentation not available at time of chart dictation ), RN notes reviewed, old records reviewed Mode of arrival: Stretcher Limitations: Physical Limitation - History of Present Illness Initial comments: Patient is a 64-year-old female. I have evaluated her in the past. Her tree inspector is Dr. Awad. Her past medical history includes hypertension, renal insufficiency, nonischemic cardiomyopathy, EF of 45%, pulmonary hypertension, had a cardiac catheterization performed at this hospital a few months ago which was negative for coronary artery disease, also ruling out aortic stenosis, also known to have moderate to severe pulmonary hypertension, also has a history of paroxysmal A. fib, reports that she is currently on systemic anticoagulation, also has history of hysterectomy, oophorectomy, cocaine use, depression, and psychiatric disease. She also has a history of COPD. She is brought to the hospital by emergency medical services. She complains of chest tightness, cough, shortness of breath, wheezing. The patient indicates her symptoms have been going on for about a day to a day and a half. The patient endorses compliance with her medications. She denies fever. Positive cough. Positive shortness of breath. Positive chest tightness. Emergency medical services were contacted. It is not clear what medications or interventions they performed in the field. In the emergency room, patient in moderate respiratory distress, with accessory muscle use, and tachypneic. She is saturating at 91%. This is on room air. She is placed on isolation precautions, BiPAP therapy, albuterol, Atrovent, steroids ordered. Patient was very anxious with BiPAP mask, and required Ativan to facilitate positive pressure ventilation. The patient has difficulty describing exacerbating, with relieving factors, or qualitative nature of her symptoms secondary to her acute respiratory distress -: days(s) Location: chest Quality: other Consistency: other Improves with: other Worsens with: other Associated Symptoms: chest pain, cough, shortness of breath, weakness - Related Data Home Medications Medication Instructions Recorded Confirmed Last Taken traZODone [Desyrel] 50 mg PO QHS 08/09/13 07/17/19 04/05/14 Budesonide/Formoterol Fumarate 10.2 gm IH Q4H 03/10/19 07/17/19 03/10/19 [Symbicort 160-4.5 Mcg Inhaler] Chlorpheniramine/Dextromethorp 1 each PO Q6HR 03/10/19 07/17/19 03/10/19 [Cough-Cold Tablet] allopurinoL [Zyloprim] 100 mg PO QDAY 03/10/19 07/17/19 03/10/19 methOCARBAMOL 500 mg PO Q6HR PRN 03/27/19 07/17/19 Unknown Previous Rx's Medication Instructions Recorded Last Taken Type AtorvaSTATin [Lipitor] 40 mg PO QHS #30 tablet 04/07/19 Unknown Rx Aspirin EC [Halfprin EC] 81 mg PO DAILY #30 tablet. 07/18/19 Unknown Rx Depakote ER 250 mg PO BID #14 07/18/19 Unknown Rx Fluticasone [Flonase] 100 mcg NS QDAY #1 bottle 07/18/19 Unknown Rx Oxybutynin [Ditropan] 5 mg PO DAILY #7 07/18/19 Unknown Rx Pantoprazole [Protonix TAB] 40 mg PO QDAY #30 07/18/19 Unknown Rx carvediloL [Coreg] 6.25 mg PO DAILY #60 07/18/19 Unknown Rx Aspirin [Aspirin BABY CHEW TAB] 81 mg PO QDAY #30 tab.chew 07/23/19 Unknown Rx Acetaminophen [Non-Aspirin Extra 500 mg PO Q6HR PRN #30 tablet 08/05/19 Unknown Rx Strength] Agnieszka Root [Agnieszka] 250 mg PO QID PRN #30 capsule 08/05/19 Unknown Rx Metoclopramide [Reglan] 10 mg PO QID PRN #30 tablet 08/05/19 Unknown Rx traMADoL [Ultram 50 MG tab] 50 mg PO Q6HR PRN #7 tablet 09/27/19 Unknown Rx Allergies Allergy/AdvReac Type Severity Reaction Status Date / Time codeine Allergy Rash Verified 08/05/19 18:06 Sulfa (Sulfonamide Allergy Rash Verified 08/05/19 18:06 Antibiotics) lisinopril AdvReac Unknown Verified 08/05/19 18:06 ED Review of Systems ROS: Stated complaint: DIFFICULTY BREATHING Other details as noted in HPI Comment: Unobtainable due to pts medical conditions Constitutional: malaise Respiratory: cough, shortness of breath Cardiovascular: chest pain Psychiatric: anxiety ED Past Medical Hx - Past Medical History Hx Hypertension: Yes Hx Heart Attack/AMI: Yes Hx Congestive Heart Failure: Yes Hx GERD: Yes Hx Renal Disease: Yes (stage 3) Hx Arthritis: Yes (Osteo) Hx Psychiatric Treatment: Yes (SCHIZO-AFFECTIVE) Hx COPD: Yes Additional medical history: AFIB, bells palsy, back pain - Surgical History Hx Cholecystectomy: Yes Additional Surgical History: Cholecystectomy and hysterectomy, rt roary cuff, heart ablation - Social History Smoking Status: Former Smoker Substance Use Type: Alcohol - Medications Home Medications: Home Medications Medication Instructions Recorded Confirmed Last Taken Type traZODone [Desyrel] 50 mg PO QHS 08/09/13 07/17/19 04/05/14 History Budesonide/Formoterol Fumarate 10.2 gm IH Q4H 03/10/19 07/17/19 03/10/19 History [Symbicort 160-4.5 Mcg Inhaler] Chlorpheniramine/Dextromethorp 1 each PO Q6HR 03/10/19 07/17/19 03/10/19 History [Cough-Cold Tablet] allopurinoL [Zyloprim] 100 mg PO QDAY 03/10/19 07/17/19 03/10/19 History methOCARBAMOL 500 mg PO Q6HR PRN 03/27/19 07/17/19 Unknown History AtorvaSTATin [Lipitor] 40 mg PO QHS #30 tablet 04/07/19 07/17/19 Unknown Rx Aspirin EC [Halfprin EC] 81 mg PO DAILY #30 tablet. 07/18/19 Unknown Rx Depakote ER 250 mg PO BID #14 07/18/19 Unknown Rx Fluticasone [Flonase] 100 mcg NS QDAY #1 bottle 07/18/19 Unknown Rx Oxybutynin [Ditropan] 5 mg PO DAILY #7 07/18/19 Unknown Rx Pantoprazole [Protonix TAB] 40 mg PO QDAY #30 07/18/19 Unknown Rx carvediloL [Coreg] 6.25 mg PO DAILY #60 07/18/19 Unknown Rx Aspirin [Aspirin BABY CHEW TAB] 81 mg PO QDAY #30 tab.chew 07/23/19 Unknown Rx Acetaminophen [Non-Aspirin Extra 500 mg PO Q6HR PRN #30 tablet 08/05/19 Unknown Rx Strength] Agnieszka Root [Agnieszka] 250 mg PO QID PRN #30 capsule 08/05/19 Unknown Rx Metoclopramide [Reglan] 10 mg PO QID PRN #30 tablet 08/05/19 Unknown Rx traMADoL [Ultram 50 MG tab] 50 mg PO Q6HR PRN #7 tablet 09/27/19 Unknown Rx ED Physical Exam - General Limitations: Physical Limitation General appearance: alert, anxious, in distress, obese - Head Head exam: Present: atraumatic, normocephalic - Eye Eye exam: Present: normal appearance - ENT ENT exam: Present: normal exam, normal orophraynx, mucous membranes moist, normal external ear exam - Neck Neck exam: Present: normal inspection, full ROM. Absent: tenderness, meningismus - Respiratory Respiratory exam: Present: respiratory distress, wheezes, rales, rhonchi, accessory muscle use - Cardiovascular Cardiovascular Exam: Present: regular rate, normal rhythm, normal heart sounds. Absent: tachycardia, irregular rhythm, systolic murmur, diastolic murmur, rubs, gallop - GI/Abdominal GI/Abdominal exam: Present: soft. Absent: distended, tenderness, guarding, rebound, rigid, pulsatile mass - Extremities Exam Extremities exam: Present: normal inspection, full ROM, other (2+ pulses noted in the bilateral upper and lower extremities. There is no palpable cord. negative Homans sign. Muscular compartments are soft. The pelvis is stable.). Absent: pedal edema (No significant edema is noted), calf tenderness - Back Exam Back exam: Present: normal inspection, full ROM. Absent: tenderness, CVA tenderness (R), CVA tenderness (L), paraspinal tenderness, vertebral tenderness - Neurological Exam Neurological exam: Present: alert, other (No facial droop. Tongue midline. Extraocular movements intact bilaterally. Facial sensation intact to light touch in V1, V2, V3 distribution bilaterally. 5 and a 5 strength in 4 extremities. Sensation intact to light touch in 4 extremities.). Absent: motor sensory deficit - Psychiatric Psychiatric exam: Present: anxious - Skin Skin exam: Present: warm, dry, intact, normal color. Absent: rash ED Course Vital Signs 10/28/19 10/28/19 10/28/19 03:16 03:32 03:46 Temperature 98.4 F Pulse Rate 71 78 Pulse Rate [ Bilateral] Respiratory 22 19 Rate Respiratory Rate [Bilateral ] Blood Pressure 186/71 Blood Pressure 165/63 [Right] O2 Sat by Pulse 95 93 92 Oximetry 10/28/19 10/28/19 04:24 04:59 Temperature Pulse Rate 71 Pulse Rate [ 77 Bilateral] Respiratory Rate Respiratory 30 H Rate [Bilateral ] Blood Pressure 105/52 Blood Pressure [Right] O2 Sat by Pulse 94 Oximetry - Reevaluation(s) Reevaluation #1: 10/28/19 04:20 Differential diagnosis, including but not limited to: COPD exacerbation, CHF exacerbation, pneumonia, suspected coronavirus infection, multifactorial respiratory failure Assessment and plan: 64-year-old female with known pulmonary hypertension, COPD, cardiomyopathy, recently ruled out for ischemic heart disease at this hospital, reports compliance with systemic anticoagulation, presenting with acute respiratory distress. We will treat her with albuterol, Atrovent, steroids, magnesium, antibiotics, and respiratory support. We will strive to avoid invasive ventilation strategies. Highly suspect multi factorial contributing factors. Laboratory studies pending. Anticipate admission once initial diagnostics are back. During the entire history and physical examination, I had on complete personal protective equipment. 10/28/19 05:00 Patient continued to become more agitated during her stay in the emergency room. She continued to take off her BiPAP support, and we informed the patient that she would likely require intubation and/or mechanical ventilation if she continue to do this. Patient continued to become more agitated, pulled out her IV, pulled off her cardiac leads, and pulled off her mask. X-ray of the chest was reviewed by myself, suspicious for pulmonary edema, and I emergently ordered nitroglycerin drip. Unfortunately, the patient deteriorated, and at this point in time is not a candidate for noninvasive ventilation. Patient then lost pulses, and received approximately 2 minutes of high-quality CPR, and was intubated by myself using a glide scope, with 1 attempt, and no difficulty. We have regained return of spontaneous circulation. She will be ventilated on a lung protective strategy. Blood pressure rather elevated, likely multifactorial, including probable flash pulmonary edema, hypertensive urgency, as well as ketamine induction agent. This hospital does not have a postarrest hypothermia protocol. Case was presented to critical care physician, Dr. Luis, who agrees with placement into the intensive care unit. Laboratory studies still pending. Care will be transferred to the oncoming physician, Dr. Le to arrange admission to the intensive care unit. ornamenter hand physician is not accepting any admissions at this time I suspect that the patient's arrest is secondary to acute respiratory failure, secondary to underlying COPD, CHF, and possible pneumonia. 10/28/19 05:15 10/28/19 05:44 - Intubation Time Out Performed: No (Emergency situation) Sedative: Ketamine Mg Given: 200 Assist Device Used: fiberoptic device ET Tube Size: 7.5 Tube Secured Location: teeth Tube Placement Confirmation: visualized tube passing t, equal breath sounds bilat, no breath sounds over epi, confirmation by capnometr Patient Tolerated Procedure: well Intubation Complications: none ED Medical Decision Making - Lab Data Result diagrams: 10/28/19 03:56 10/28/19 05:11 Vital Signs 10/28/19 10/28/19 10/28/19 03:16 03:32 03:46 Temperature 98.4 F Pulse Rate 71 78 Respiratory 22 19 Rate Blood Pressure 186/71 Blood Pressure 165/63 [Right] O2 Sat by Pulse 95 93 92 Oximetry Lab Results 10/28/19 10/28/19 10/28/19 Range/Units 03:56 03:56 03:56 WBC 8.8 (4.5-11.0) K/mm3 RBC 3.89 (3.65-5.03) M/mm3 Hgb 11.3 (10.1-14.3) gm/dl Hct 33.6 (30.3-42.9) % MCV 86 (79-97) fl MCH 29 (28-32) pg MCHC 34 (30-34) % RDW 18.2 H (13.2-15.2) % Plt Count 338 (140-440) K/mm3 PT 14.7 (12.2-14.9) Sec. INR 1.14 H (0.87-1.13) D-Dimer 386.89 H (0-234) ng/mlDDU ABG pH (7.350-7.450) pH Units ABG pCO2 mm Hg ABG pO2 (80.0-90.0) mm Hg ABG HCO3 (20.0-26.0) mmol/L ABG O2 Saturation (95.0-99.0) % ABG O2 Content (0.0-44) ABG Base Excess (-2.0-3.0) mmol/L ABG Hemoglobin (12.0-16.0) gm/dl ABG Carboxyhemoglobin (0.0-5.0) % ABG Methemoglobin (0.0-1.5) % Oxyhemoglobin (95.0-99.0) % FiO2 % Sodium (137-145) mmol/L Potassium (3.6-5.0) mmol/L Chloride (98-107) mmol/L Carbon Dioxide (22-30) mmol/L Anion Gap mmol/L BUN (7-17) mg/dL Creatinine (0.7-1.2) mg/dL Estimated GFR ml/min BUN/Creatinine Ratio % Glucose (65-100) mg/dL Lactic Acid (0.7-2.0) mmol/L Calcium (8.4-10.2) mg/dL Magnesium (1.7-2.3) mg/dL Total Bilirubin (0.1-1.2) mg/dL AST (5-40) units/L ALT (7-56) units/L Alkaline Phosphatase (35-129) units/L Lactate Dehydrogenase (91-180) units/L Troponin T < 0.010 (0.00-0.029) ng/mL C-Reactive Protein (0.00-1.30) mg/dL NT-Pro-B Natriuret Pep (0-900) pg/mL Total Protein (6.3-8.2) g/dL Albumin (3.9-5) g/dL Albumin/Globulin Ratio % 10/28/19 10/28/19 10/28/19 Range/Units 04:19 05:11 05:11 WBC (4.5-11.0) K/mm3 RBC (3.65-5.03) M/mm3 Hgb (10.1-14.3) gm/dl Hct (30.3-42.9) % MCV (79-97) fl MCH (28-32) pg MCHC (30-34) % RDW (13.2-15.2) % Plt Count (140-440) K/mm3 PT (12.2-14.9) Sec. INR (0.87-1.13) D-Dimer (0-234) ng/mlDDU ABG pH 7.368 (7.350-7.450) pH Units ABG pCO2 36.8 mm Hg ABG pO2 135.7 H (80.0-90.0) mm Hg ABG HCO3 20.7 (20.0-26.0) mmol/L ABG O2 Saturation 98.6 (95.0-99.0) % ABG O2 Content 14.3 (0.0-44) ABG Base Excess -4.1 L (-2.0-3.0) mmol/L ABG Hemoglobin 10.4 L (12.0-16.0) gm/dl ABG Carboxyhemoglobin 2.2 (0.0-5.0) % ABG Methemoglobin 0.5 (0.0-1.5) % Oxyhemoglobin 96.0 (95.0-99.0) % FiO2 40 % Sodium 138 (137-145) mmol/L Potassium 4.9 (3.6-5.0) mmol/L Chloride 102.6 (98-107) mmol/L Carbon Dioxide 16 L (22-30) mmol/L Anion Gap 24 mmol/L BUN 27 H (7-17) mg/dL Creatinine 2.7 H (0.7-1.2) mg/dL Estimated GFR 22 ml/min BUN/Creatinine Ratio 10 % Glucose 229 H (65-100) mg/dL Lactic Acid 7.20 H* (0.7-2.0) mmol/L Calcium 8.8 (8.4-10.2) mg/dL Magnesium 3.20 H (1.7-2.3) mg/dL Total Bilirubin 0.20 (0.1-1.2) mg/dL AST 169 H (5-40) units/L ALT 83 H (7-56) units/L Alkaline Phosphatase 210 H (35-129) units/L Lactate Dehydrogenase 353 H (91-180) units/L Troponin T (0.00-0.029) ng/mL C-Reactive Protein 1.80 H (0.00-1.30) mg/dL NT-Pro-B Natriuret Pep 36705 H (0-900) pg/mL Total Protein 7.1 (6.3-8.2) g/dL Albumin 3.7 L (3.9-5) g/dL Albumin/Globulin Ratio 1.1 % - EKG Data -: EKG Interpreted by Me EKG shows normal: sinus rhythm Rate: normal - EKG Data When compared to previous EKG there are: no significant change Interpretation: unchanged when compared t (July 2019) 10/28/19 04:22 Sinus rhythm, 74 bpm, left axis deviation, borderline left anterior fascicular block, left ventricular hypertrophy, T wave abnormality, atrial enlargement. Motion artifact. This is not a STEMI. - Radiology Data Radiology results: pending, report reviewed, image reviewed interpreted by me: X-ray of the chest shows cardiomegaly, pulmonary edema, lower lobe infiltrates. Post intubation x-ray shows appropriate endotracheal tube placement, pulmonary vascular congestion, and bilateral pulmonary infiltrates. Print Report Referring Physician: BRAYAN DOE Patient Name: FRANCIA COATS Date of : 1955 Sex: Female Report Date: 2019-10-28 Report Status: Finalized Findings [facility] [address] [place] [address] XRay Report Signed Patient: FRANCIA COATS MR#: [id number] : 1955 Acct:[id number] Age/Sex: 64 / F ADM Date: 10/28/19 Loc: ED Attending Dr: Ordering Physician: BRAYAN DOE MD Date of Service: 10/28/19 Procedure(s): XR chest 1V ap Accession Number(s): [id number] cc: BRAYAN DOE MD Fluoro Time In Minutes: Chest single view INDICATION: Chest pain with dyspnea IMPRESSION: Endotracheal tube terminates about 4 cm above the emily. Severe bilateral airspace disease has worsened since earlier today Signer Name: Titus Kaur MD Signed: 10/28/2019 5:38 AM Workstation Name: [id number] Transcribed By: BC Dictated By: Titus Kaur MD Electronically Authenticated By: Titus Kaur MD Signed Date/Time: 10/28/19537 DD/ 7 Critical Care Time: Yes Critical care time in (mins) excluding proc time.: 120 Critical care attestation.: If time is entered above; I have spent that time in minutes in the direct care of this critically ill patient, excluding procedure time. ED Disposition Clinical Impression: Acute respiratory failure, Suspected 2019 novel coronavirus infection, Flash pulmonary edema Disposition: DC09 OP ADMIT IP TO THIS HOSP Is pt being admited?: Yes Condition: Critical Instructions: Pulmonary Edema (ED) Referrals: PRIMARY CARE, [Primary Care Provider] - 3-5 Days
[2019-10-28] MEDS ORDERED: LORazepam 2 MG/ML VIAL IV STA (04:13)
[2019-10-28] MEDS ORDERED: LORazepam 2 MG/ML VIAL ONE (04:15)
[2019-10-28 04:23] LABS: Hematocrit 33.6 % (30.3-42.9); Hemoglobin 11.3 gm/dl (10.1-14.3); Mean Corpuscular HGB Conc 34 % (30-34); Mean Corpuscular Volume 86 fl (79-97); Platelet Count 338 K/mm3 (140-440); Red Blood Count 3.89 M/mm3 (3.65-5.03); Red Cell Distribution Width 18.2 % (13.2-15.2)
[2019-10-28 04:32] LABS: ABG Base Excess -4.1 mmol/L (-2.0-3.0); ABG HCO3 20.7 mmol/L (20.0-26.0); ABG Methemoglobin 0.5 % (0.0-1.5); ABG Oxygen Saturation 98.6 % (95.0-99.0); ABG PCO2 36.8 mm Hg; ABG PH 7.368 pH Units (7.350-7.450); ABG PO2 135.7 mm Hg (80.0-90.0)
[2019-10-28 04:39] LABS: INR 1.14 (0.87-1.13)
[2019-10-28] MEDS ORDERED: MIDAZOLAM 2 MG/2 ML INJ IV PRN (04:57)
[2019-10-28] MEDS ORDERED: fentaNYL 100 MCG/2 ML INJ IV PRN (04:57)
[2019-10-28] MEDS ORDERED: MINERAL OIL/PETROLATUM, WHITE OPHTH OINT 3.5 GM OU PRN (04:57)
[2019-10-28] MEDS ORDERED: LIP THERAPY VASELINE TP PRN (04:57)
[2019-10-28] MEDS ORDERED: NITROGLYCERIN DRIP 50 MG/250 ML BOTTLE IV SCH (05:00)
[2019-10-28] MEDS ORDERED: MIDAZOLAM 100 MG in SODIUM CHLORIDE 0.9% 80 ML IV SCH (05:00)
--- NOTE | 2019-10-28 05:12 | XRay Report ---
Chest single view INDICATION: Chest pain IMPRESSION: Large right pleural effusion with patchy consolidation of both lower lungs. The endotrach eal tube terminates about 5 cm above the emily. Signer Name: Titus Kaur MD Signed: 10/28/2019 5:07 AM Workstation Name: [id number]
[2019-10-28] MEDS: fentaNYL DRIP Premix 2,000 MCG/100 ML BAG IV SCH ×4 (05:15→21:26)
[2019-10-28 05:35] LABS: Albumin 3.7 g/dL (3.9-5); C-Reactive Protein 1.8 mg/dL (0.00-1.30); Calcium 8.8 mg/dL (8.4-10.2)
[2019-10-28] MEDS ORDERED: FUROSEMIDE 40 MG/4 ML INJ IV ONE ×2 (05:40→15:47)
[2019-10-28 05:43] LABS: Total Cells Counted 100
--- NOTE | 2019-10-28 05:43 | XRay Report ---
Chest single view INDICATION: Chest pain with dyspnea IMPRESSION: Endotracheal tube terminates about 4 cm above the emily. Severe bilateral airspace disea se has worsened since earlier today Signer Name: Titus Kaur MD Signed: 10/28/2019 5:38 AM Workstation Name: [id number]
[2019-10-28 05:44] LABS: Platelet Estimate Consistent w Auto
[2019-10-28 06:30] LABS: ABG Base Excess -9.6 mmol/L (-2.0-3.0); ABG HCO3 17.8 mmol/L (20.0-26.0); ABG PCO2 45.5 mm Hg; ABG PO2 96.5 mm Hg (80.0-90.0)
[2019-10-28 09:38] LABS: ABG Base Excess -5.5 mmol/L (-2.0-3.0); ABG HCO3 19.8 mmol/L (20.0-26.0); ABG PCO2 37.5 mm Hg; ABG PH 7.34 pH Units (7.350-7.450); ABG PO2 80.6 mm Hg (80.0-90.0)
[2019-10-28 09:56] LABS: ABG Oxygen Saturation 96.7 % (95.0-99.0)
[2019-10-28] MEDS ORDERED: EPINEPHrine 1 MG/10 ML SYRINGE ONE (10:31)
[2019-10-28] MEDS ORDERED: fentaNYL DRIP Premix 2,000 MCG/100 ML BAG IV ONE (11:04)
[2019-10-28] MEDS ORDERED: fentaNYL 100 MCG/2 ML INJ ONE (11:20)
[2019-10-28 11:29] LABS: Bilirubin,Urine NEG (Negative); Blood,Urine NEG (Negative); Color,Urine Straw (Yellow); Mucus,Urine FEW /HPF; Protein,Urine <15 mg/dL mg/dL (Negative); RBC,Urine < 1.0 /HPF (0.0-6.0); Urobilinogen,Urine < 2.0 mg/dL (<2.0)
--- NOTE | 2019-10-28 11:33 | History and Physical Report ---
History of Present Illness Date of examination: 10/28/19 Date of admission: 10/28/19 09:02 Chief complaint: Respiratory failure History of present illness: 64-year-old female with past medical history of hypertension, chronic kidney disease stage III, nonischemic cardiomyopathy, EF of 45%, pulmonary hypertension, moderate to severe pulmonary hypertension, paroxysmal A. fib, (on systemic anticoagulation) hysterectomy, oophorectomy, cocaine use, depression, schizoaffective disorder with depression and COPD who presents to the emergency department with complaints of chest tightness, cough, shortness of breath, wheezing.the patient had a cardiac catheterization performed at this hospital a few months ago which was negative for coronary artery disease, also ruling out aortic stenosis. Patient reportedly had the symptoms for approximately 2 days with associated cough. While in the emergency room, patient was noted to have moderate respiratory distress with accessory muscle use, and tachypnea. BiPAP was attempted but patient failed and thus ER physician made decision to intubate. All the history was obtained from the ER record due to patient being on mechanical ventilation and unable to provide history. Past History Past Medical History: atrial fib, heart failure, hypertension, renal failure Past Surgical History: Other (Unable to obtain due to ventilator) Social history: smoking, other (Cocaine abuse) Family history: other (Unable to obtain due to ventilator) Medications and Allergies Allergies Allergy/AdvReac Type Severity Reaction Status Date / Time codeine Allergy Rash Verified 08/05/19 18:06 Sulfa (Sulfonamide Allergy Rash Verified 08/05/19 18:06 Antibiotics) lisinopril AdvReac Unknown Verified 08/05/19 18:06 Home Medications Medication Instructions Recorded Confirmed Last Taken Type traZODone [Desyrel] 50 mg PO QHS 08/09/13 07/17/19 04/05/14 History Budesonide/Formoterol Fumarate 10.2 gm IH Q4H 03/10/19 07/17/19 03/10/19 History [Symbicort 160-4.5 Mcg Inhaler] Chlorpheniramine/Dextromethorp 1 each PO Q6HR 03/10/19 07/17/19 03/10/19 History [Cough-Cold Tablet] allopurinoL [Zyloprim] 100 mg PO QDAY 03/10/19 07/17/19 03/10/19 History methOCARBAMOL 500 mg PO Q6HR PRN 03/27/19 07/17/19 Unknown History AtorvaSTATin [Lipitor] 40 mg PO QHS #30 tablet 04/07/19 07/17/19 Unknown Rx Aspirin EC [Halfprin EC] 81 mg PO DAILY #30 tablet.dr 07/18/19 Unknown Rx Depakote ER 250 mg PO BID #14 07/18/19 Unknown Rx Fluticasone [Flonase] 100 mcg NS QDAY #1 bottle 07/18/19 Unknown Rx Oxybutynin [Ditropan] 5 mg PO DAILY #7 07/18/19 Unknown Rx Pantoprazole [Protonix TAB] 40 mg PO QDAY #30 07/18/19 Unknown Rx carvediloL [Coreg] 6.25 mg PO DAILY #60 07/18/19 Unknown Rx Aspirin [Aspirin BABY CHEW TAB] 81 mg PO QDAY #30 tab.chew 07/23/19 Unknown Rx Acetaminophen [Non-Aspirin Extra 500 mg PO Q6HR PRN #30 tablet 08/05/19 Unknown Rx Strength] Agnieszka Root [Agnieszka] 250 mg PO QID PRN #30 capsule 08/05/19 Unknown Rx Metoclopramide [Reglan] 10 mg PO QID PRN #30 tablet 08/05/19 Unknown Rx traMADoL [Ultram 50 MG tab] 50 mg PO Q6HR PRN #7 tablet 09/27/19 Unknown Rx Active Meds: Active Medications Allopurinol (Zyloprim) 100 mg PO QDAY [facility] Aspirin (Baby Aspirin) 81 mg PO QDAY [facility] Atorvastatin Calcium (Lipitor) 40 mg PO QHS [facility] Carvedilol (Coreg) 6.25 mg PO DAILY [facility] Divalproex Sodium (Depakote Dr) 250 mg PO BID [facility] Fentanyl (Sublimaze) 50 mcg IV Q10MIN PRN PRN Reason: ANALGESIA Hydrophilic Ointment (Vaseline Lip Therapy) 1 applic TP Q2HR PRN PRN Reason: Dry Lips Nitroglycerin/Dextrose (Tridil Drip 50mg/250ml) 50 mg in 250 mls @ 3 mls/hr IV TITR [facility]; Protocol Last Titration: 10/28/19 07:24 Dose: Infused Documented by: Fentanyl Citrate (Fentanyl Drip Premix) 2,000 mcg in 100 mls @ 3.493 mls/hr IV TITR [facility]; Protocol Last Titration: 10/28/19 08:00 Dose: 4 mcg/kg/hr, 13.971 mls/hr Documented by: Midazolam HCl 100 mg/ Sodium (Chloride) 100 mls @ 2 mls/hr IV TITR [facility]; Protocol Last Titration: 10/28/19 07:30 Dose: 1 mg/hr, 1 mls/hr Documented by: Midazolam HCl (Versed) 2 mg IV Q10MIN PRN PRN Reason: Sedation Multi-Ingred Cream/Lotion/Oil/Oint (Artificial Tears Ophth Oint) 1 applic OU Q4HR PRN PRN Reason: Dry Eye(s) Oxybutynin Chloride (Ditropan) 5 mg PO DAILY [facility] Review of Systems ROS unobtainable: due to endotracheal tube, due to mental status Exam - Constitutional Vitals: Temp Pulse Resp BP Pulse Ox 97.9 F 55 L 20 142/59 99 10/28/19 07:15 10/28/19 09:36 10/28/19 07:15 10/28/19 09:36 10/28/19 09:36 General appearance: Present: severe distress, well-nourished, other (Intubated on mechanical ventilation) - EENT Eyes: Present: PERRL ENT: hearing intact, clear oral mucosa - Neck Neck: Present: supple, normal ROM - Respiratory Respiratory effort: normal Respiratory: bilateral: diminished, rhonchi - Cardiovascular Heart Sounds: Present: S1 & S2. Absent: rub, click - Extremities Extremities: pulses symmetrical, No edema Peripheral Pulses: within normal limits - Abdominal General gastrointestinal: Present: soft, non-tender, non-distended, normal bowel sounds Female genitourinary: Present: normal - Integumentary Integumentary: Present: clear, warm, dry - Musculoskeletal Musculoskeletal: gait normal, strength equal bilaterally - Psychiatric Psychiatric: appropriate mood/affect, intact judgment & insight - Neurologic Neurologic: CNII-XII intact, moves all extremities HEART Score - HEART Score Troponin: Troponin T < 0.010 ng/mL (0.00-0.029) 10/28/19 03:56 Results - Labs CBC & Chem 7: 10/28/19 03:56 10/28/19 05:11 Labs: Laboratory Last Values WBC 8.8 K/mm3 (4.5-11.0) 10/28/19 03:56 RBC 3.89 M/mm3 (3.65-5.03) 10/28/19 03:56 Hgb 11.3 gm/dl (10.1-14.3) 10/28/19 03:56 Hct 33.6 % (30.3-42.9) 10/28/19 03:56 MCV 86 fl (79-97) 10/28/19 03:56 MCH 29 pg (28-32) 10/28/19 03:56 MCHC 34 % (30-34) 10/28/19 03:56 RDW 18.2 % (13.2-15.2) H 10/28/19 03:56 Plt Count 338 K/mm3 (140-440) 10/28/19 03:56 Add Manual Diff Complete 10/28/19 03:56 Total Counted 100 10/28/19 03:56 Seg Neuts % (Manual) 59.0 % (40.0-70.0) 10/28/19 03:56 Band Neutrophils % 0 % 10/28/19 03:56 Lymphocytes % (Manual) 30.0 % (13.4-35.0) 10/28/19 03:56 Reactive Lymphs % (Man) 0 % 10/28/19 03:56 Monocytes % (Manual) 5.0 % (0.0-7.3) 10/28/19 03:56 Eosinophils % (Manual) 5.0 % (0.0-4.3) H 10/28/19 03:56 Basophils % (Manual) 1.0 % (0.0-1.8) 10/28/19 03:56 Metamyelocytes % 0 % 10/28/19 03:56 Myelocytes % 0 % 10/28/19 03:56 Promyelocytes % 0 % 10/28/19 03:56 Blast Cells % 0 % 10/28/19 03:56 Nucleated RBC % Not Reportable 10/28/19 03:56 Seg Neutrophils # Man 5.2 K/mm3 (1.8-7.7) 10/28/19 03:56 Band Neutrophils # 0.0 K/mm3 10/28/19 03:56 Lymphocytes # (Manual) 2.6 K/mm3 (1.2-5.4) 10/28/19 03:56 Abs React Lymphs (Man) 0.0 K/mm3 10/28/19 03:56 Monocytes # (Manual) 0.4 K/mm3 (0.0-0.8) 10/28/19 03:56 Eosinophils # (Manual) 0.4 K/mm3 (0.0-0.4) 10/28/19 03:56 Basophils # (Manual) 0.1 K/mm3 (0.0-0.1) 10/28/19 03:56 Metamyelocytes # 0.0 K/mm3 10/28/19 03:56 Myelocytes # 0.0 K/mm3 10/28/19 03:56 Promyelocytes # 0.0 K/mm3 10/28/19 03:56 Blast Cells # 0.0 K/mm3 10/28/19 03:56 WBC Morphology Not Reportable 10/28/19 03:56 Hypersegmented Neuts Not Reportable 10/28/19 03:56 Hyposegmented Neuts Not Reportable 10/28/19 03:56 Hypogranular Neuts Not Reportable 10/28/19 03:56 Smudge Cells Not Reportable 10/28/19 03:56 Toxic Granulation Not Reportable 10/28/19 03:56 Toxic Vacuolation Not Reportable 10/28/19 03:56 Dohle Bodies Not Reportable 10/28/19 03:56 Pelger-Huet Anomaly Not Reportable 10/28/19 03:56 Guy Rods Not Reportable 10/28/19 03:56 Platelet Estimate Consistent w auto 10/28/19 03:56 Clumped Platelets Not Reportable 10/28/19 03:56 Plt Clumps, EDTA Not Reportable 10/28/19 03:56 Large Platelets Not Reportable 10/28/19 03:56 Giant Platelets Not Reportable 10/28/19 03:56 Platelet Satelliting Not Reportable 10/28/19 03:56 Plt Morphology Comment Not Reportable 10/28/19 03:56 RBC Morphology Not Reportable 10/28/19 03:56 Dimorphic RBCs Not Reportable 10/28/19 03:56 Polychromasia Not Reportable 10/28/19 03:56 Hypochromasia Not Reportable 10/28/19 03:56 Poikilocytosis Not Reportable 10/28/19 03:56 Anisocytosis Not Reportable 10/28/19 03:56 Microcytosis Not Reportable 10/28/19 03:56 Macrocytosis Not Reportable 10/28/19 03:56 Spherocytes Not Reportable 10/28/19 03:56 Pappenheimer Bodies Not Reportable 10/28/19 03:56 Sickle Cells Not Reportable 10/28/19 03:56 Target Cells Not Reportable 10/28/19 03:56 Tear Drop Cells Not Reportable 10/28/19 03:56 Ovalocytes Not Reportable 10/28/19 03:56 Helmet Cells Not Reportable 10/28/19 03:56 Barclay-Ossun Bodies Not Reportable 10/28/19 03:56 [place] Rings Not Reportable 10/28/19 03:56 Whit Cells Not Reportable 10/28/19 03:56 Bite Cells Not Reportable 10/28/19 03:56 Crenated Cell Not Reportable 10/28/19 03:56 Elliptocytes Not Reportable 10/28/19 03:56 Acanthocytes (Spur) Not Reportable 10/28/19 03:56 Rouleaux Not Reportable 10/28/19 03:56 Hemoglobin C Crystals Not Reportable 10/28/19 03:56 Schistocytes Not Reportable 10/28/19 03:56 Malaria parasites Not Reportable 10/28/19 03:56 Stefan Bodies Not Reportable 10/28/19 03:56 Hem Pathologist Commnt No 10/28/19 03:56 PT 14.7 Sec. (12.2-14.9) 10/28/19 03:56 INR 1.14 (0.87-1.13) H 10/28/19 03:56 D-Dimer 386.89 ng/mlDDU (0-234) H 10/28/19 03:56 ABG pH 7.340 pH Units (7.350-7.450) L 10/28/19 09:15 ABG pCO2 37.5 mm Hg 10/28/19 09:15 ABG pO2 80.6 mm Hg (80.0-90.0) 10/28/19 09:15 ABG HCO3 19.8 mmol/L (20.0-26.0) L 10/28/19 09:15 ABG O2 Saturation 96.7 % (95.0-99.0) 10/28/19 09:15 ABG O2 Content 13.9 (0.0-44) 10/28/19 09:15 ABG Base Excess -5.5 mmol/L (-2.0-3.0) L 10/28/19 09:15 ABG Hemoglobin 10.4 gm/dl (12.0-16.0) L 10/28/19 09:15 ABG Carboxyhemoglobin 2.3 % (0.0-5.0) 10/28/19 09:15 ABG Methemoglobin 0.0 % (0.0-1.5) 10/28/19 09:15 Oxyhemoglobin 94.4 % (95.0-99.0) L 10/28/19 09:15 FiO2 60 % 10/28/19 09:15 Sodium 138 mmol/L (137-145) 10/28/19 05:11 Potassium 4.9 mmol/L (3.6-5.0) 10/28/19 05:11 Chloride 102.6 mmol/L (98-107) 10/28/19 05:11 Carbon Dioxide 16 mmol/L (22-30) L 10/28/19 05:11 Anion Gap 24 mmol/L 10/28/19 05:11 BUN 27 mg/dL (7-17) H 10/28/19 05:11 Creatinine 2.7 mg/dL (0.7-1.2) H 10/28/19 05:11 Estimated GFR 22 ml/min 10/28/19 05:11 BUN/Creatinine Ratio 10 % 10/28/19 05:11 Glucose 229 mg/dL (65-100) H 10/28/19 05:11 Lactic Acid 1.50 mmol/L (0.7-2.0) 10/28/19 08:08 Calcium 8.8 mg/dL (8.4-10.2) 10/28/19 05:11 Magnesium 3.20 mg/dL (1.7-2.3) H 10/28/19 05:11 Ferritin 51.3 ng/mL (13.0-400.0) 10/28/19 05:11 Total Bilirubin 0.20 mg/dL (0.1-1.2) 10/28/19 05:11 AST 169 units/L (5-40) H 10/28/19 05:11 ALT 83 units/L (7-56) H 10/28/19 05:11 Alkaline Phosphatase 210 units/L (35-129) H 10/28/19 05:11 Lactate Dehydrogenase 353 units/L (91-180) H 10/28/19 05:11 Troponin T < 0.010 ng/mL (0.00-0.029) 10/28/19 03:56 C-Reactive Protein 1.80 mg/dL (0.00-1.30) H 10/28/19 05:11 NT-Pro-B Natriuret Pep 69705 pg/mL (0-900) H 10/28/19 05:11 Total Protein 7.1 g/dL (6.3-8.2) 10/28/19 05:11 Albumin 3.7 g/dL (3.9-5) L 10/28/19 05:11 Albumin/Globulin Ratio 1.1 % 10/28/19 05:11 Procalcitonin 0.11 ng/mL (<0.15) 10/28/19 05:11 Coronavirus (PCR) Negative (Negative) 10/28/19 08:24 Microbiology: Microbiology 10/28/19 05:11 Peripheral/Venous Blood Culture - Preliminary Culture in Progress 10/28/19 05:11 Peripheral/Venous Blood Culture - Preliminary Culture in Progress Stauffer/IV: IV Catheter Type [Right INT / Saline Lock Antecubital] Assessment and Plan Assessment and plan: Acute hypoxemic respiratory failure. Etiology is multifactorial secondary to bilateral pneumonia, heart failure and pulmonary hypertension. Bilateral pneumonia. R/O COVID-19 infection. Check inflammatory markers. Sepsis. Patient meets criteria given the tachycardia, tachypnea and diagnosis of pneumonia. Patient also had elevated lactic acid on admission greater than 7. IV antibiotics and ID consultation. Acute systolic heart failure. Echocardiogram completed 02/2019 revealed normal EF 60% with mild dilatation of the left atrium, and mild calcific aortic stenosis R/LHC 07/2019 revealed moderate severe pulmonary hypertension, PASP 60. No s ignificant aortic stenosis, normal coronary arteries and LVEF of 45%. Paroxysmal atrial fibrillation. Consult cardiology for further evaluation. Chronic kidney disease III. consult nephrology for further evaluation. Hypertension. Resume antihypertensive medications as needed. Patient was actua lly hypotensive on admission Schizoaffective disorder with depression. The high probability of a clinically significant, sudden or life threatening deterioration of the [cardiac and respiratory] system(s) required my full and direct attention, intervention and personal management. The aggregate critical care time was [74] minutes. This time is in addition to time spent performing reported procedures but includes the following: [x] Data Review and interpretation [x] Patient assessment and monitoring of vital signs [x] Documentation [x] Medication orders and management
[2019-10-28 13:40] LABS: C-Reactive Protein 2.6 mg/dL (0.00-1.30)
--- NOTE | 2019-10-28 14:00 | Consultation ---
History of Present Illness Consult date: 10/28/19 Requesting physician: BRAYAN DOE Reason for consult: other (Acute Hypoxemic Respiratory Failure) History of present illness: PULMONARY/CCM CONSULT NOTE (Full dictation # [id number]) Please see dictated notes for full details Past History Past Medical History: atrial fib, heart failure, hypertension, renal failure Past Surgical History: Other (Unable to obtain due to ventilator) Social history: smoking, other (Cocaine abuse) Family history: other (Unable to obtain due to ventilator) Medications and Allergies Allergies Allergy/AdvReac Type Severity Reaction Status Date / Time codeine Allergy Rash Verified 08/05/19 18:06 Sulfa (Sulfonamide Allergy Rash Verified 08/05/19 18:06 Antibiotics) lisinopril AdvReac Unknown Verified 08/05/19 18:06 Home Medications Medication Instructions Recorded Confirmed Last Taken Type traZODone [Desyrel] 50 mg PO QHS 08/09/13 07/17/19 04/05/14 History Budesonide/Formoterol Fumarate 10.2 gm IH Q4H 03/10/19 07/17/19 03/10/19 History [Symbicort 160-4.5 Mcg Inhaler] Chlorpheniramine/Dextromethorp 1 each PO Q6HR 03/10/19 07/17/19 03/10/19 History [Cough-Cold Tablet] allopurinoL [Zyloprim] 100 mg PO QDAY 03/10/19 07/17/19 03/10/19 History methOCARBAMOL 500 mg PO Q6HR PRN 03/27/19 07/17/19 Unknown History AtorvaSTATin [Lipitor] 40 mg PO QHS #30 tablet 04/07/19 07/17/19 Unknown Rx Aspirin EC [Halfprin EC] 81 mg PO DAILY #30 tablet. 07/18/19 Unknown Rx Depakote ER 250 mg PO BID #14 07/18/19 Unknown Rx Fluticasone [Flonase] 100 mcg NS QDAY #1 bottle 07/18/19 Unknown Rx Oxybutynin [Ditropan] 5 mg PO DAILY #7 07/18/19 Unknown Rx Pantoprazole [Protonix TAB] 40 mg PO QDAY #30 07/18/19 Unknown Rx carvediloL [Coreg] 6.25 mg PO DAILY #60 07/18/19 Unknown Rx Aspirin [Aspirin BABY CHEW TAB] 81 mg PO QDAY #30 tab.chew 07/23/19 Unknown Rx Acetaminophen [Non-Aspirin Extra 500 mg PO Q6HR PRN #30 tablet 08/05/19 Unknown Rx Strength] Agnieszka Root [Agnieszka] 250 mg PO QID PRN #30 capsule 08/05/19 Unknown Rx Metoclopramide [Reglan] 10 mg PO QID PRN #30 tablet 08/05/19 Unknown Rx traMADoL [Ultram 50 MG tab] 50 mg PO Q6HR PRN #7 tablet 09/27/19 Unknown Rx Active Meds: Active Medications Allopurinol (Zyloprim) 100 mg PO QDAY [facility] Aspirin (Baby Aspirin) 81 mg PO QDAY [facility] Atorvastatin Calcium (Lipitor) 40 mg PO QHS [facility] Carvedilol (Coreg) 6.25 mg PO DAILY [facility] Divalproex Sodium (Depakote Dr) 250 mg PO BID [facility] Enoxaparin Sodium (Enoxaparin) 30 mg SUB-Q QDAY [facility] Fentanyl (Sublimaze) 50 mcg IV Q10MIN PRN PRN Reason: ANALGESIA Hydrophilic Ointment (Vaseline Lip Therapy) 1 applic TP Q2HR PRN PRN Reason: Dry Lips Nitroglycerin/Dextrose (Tridil Drip 50mg/250ml) 50 mg in 250 mls @ 3 mls/hr IV TITR MARCIO; Protocol Last Titration: 10/28/19 07:24 Dose: Infused Documented by: Fentanyl Citrate (Fentanyl Drip Premix) 2,000 mcg in 100 mls @ 3.493 mls/hr IV TITR [facility]; Protocol Last Titration: 10/28/19 11:20 Dose: 4 mcg/kg/hr, 13.971 mls/hr Documented by: Midazolam HCl 100 mg/ Sodium (Chloride) 100 mls @ 2 mls/hr IV TITR MARCIO; Prot ocol Last Titration: 10/28/19 11:49 Dose: 1 mg/hr, 1 mls/hr Documented by: Ceftriaxone Sodium (Rocephin/Ns 2 Gm/100 Ml) 2 gm in 100 mls @ 200 mls/hr IV Q24HR [facility]; Protocol Azithromycin 500 mg/ Sodium (Chloride) 250 mls @ 250 mls/hr IV Q24HR [facility]; Protocol Midazolam HCl (Versed) 2 mg IV Q10MIN PRN PRN Reason: Sedation Multi-Ingred Cream/Lotion/Oil/Oint (Artificial Tears Ophth Oint) 1 applic OU Q4HR PRN PRN Reason: Dry Eye(s) Oxybutynin Chloride (Ditropan) 5 mg PO DAILY [facility] Sodium Chloride (Sodium Chloride Flush Syringe 10 Ml) 10 ml IV BID [facility] Sodium Chloride (Sodium Chloride Flush Syringe 10 Ml) 10 ml IV PRN PRN PRN Reason: LINE FLUSH Physical Examination Vital signs: Vital Signs Temp Pulse Resp BP Pulse Ox 98.4 F 71 22 165/63 95 10/28/19 03:16 10/28/19 03:16 10/28/19 03:16 10/28/19 03:16 10/28/19 03:16 Results - Laboratory Findings CBC and BMP: 10/28/19 03:56 10/28/19 12:41 ABG ABG pH 7.340 pH Units (7.350-7.450) L 10/28/19 09:15 ABG pCO2 37.5 mm Hg 10/28/19 09:15 ABG pO2 80.6 mm Hg (80.0-90.0) 10/28/19 09:15 ABG O2 Saturation 96.7 % (95.0-99.0) 10/28/19 09:15 PT/INR, D-dimer PT 14.7 Sec. (12.2-14.9) 10/28/19 03:56 INR 1.14 (0.87-1.13) H 10/28/19 03:56 D-Dimer 966.63 ng/mlDDU (0-234) H 10/28/19 12:41 Abnormal lab findings: Abnormal Labs 10/28/19 10/28/19 10/28/19 03:56 03:56 04:19 RDW 18.2 H Eosinophils % (Manual) 5.0 H INR 1.14 H D-Dimer 386.89 H ABG pH ABG pO2 135.7 H ABG HCO3 ABG Base Excess -4.1 L ABG Hemoglobin 10.4 L Oxyhemoglobin Carbon Dioxide BUN Creatinine Glucose Lactic Acid Magnesium AST ALT Alkaline Phosphatase Lactate Dehydrogenase C-Reactive Protein NT-Pro-B Natriuret Pep Albumin 10/28/19 10/28/19 10/28/19 05:11 05:11 06:20 RDW Eosinophils % (Manual) INR D-Dimer ABG pH 7.210 L ABG pO2 96.5 H ABG HCO3 17.8 L ABG Base Excess -9.6 L ABG Hemoglobin 9.4 L Oxyhemoglobin Carbon Dioxide 16 L BUN 27 H Creatinine 2.7 H Glucose 229 H Lactic Acid 7.20 H* Magnesium 3.20 H AST 169 H ALT 83 H Alkaline Phosphatase 210 H Lactate Dehydrogenase 353 H C-Reactive Protein 1.80 H NT-Pro-B Natriuret Pep 49406 H Albumin 3.7 L 10/28/19 10/28/19 10/28/19 09:15 12:41 12:41 RDW Eosinophils % (Manual) INR D-Dimer 966.63 H ABG pH 7.340 L ABG pO2 ABG HCO3 19.8 L ABG Base Excess -5.5 L ABG Hemoglobin 10.4 L Oxyhemoglobin 94.4 L Carbon Dioxide BUN Creatinine Glucose 130 H Lactic Acid Magnesium AST ALT Alkaline Phosphatase Lactate Dehydrogenase 307 H C-Reactive Protein 2.60 H NT-Pro-B Natriuret Pep Albumin
[2019-10-28] MEDS: ARFORMOTEROL 15 MCG/2 ML NEBU IH SCH (19:44)
[2019-10-28] MEDS: BUDESONIDE 0.5 MG/2 ML NEBU IH SCH (19:45)
[2019-10-28] MEDS: DIVALPROEX DR 250 MG TAB PO SCH (21:26)
[2019-10-28] MEDS ORDERED: DEPAKOTE 250 MG PO SCH (22:00)
--- NOTE | 2019-10-28 22:33 | Consultation ---
PULMONARY CRITICAL CARE CONSULT CONSULTING PHYSICIAN: Dr. Farias. REASON FOR CONSULTATION: Acute hypoxemic respiratory failure, on mechanical ventilatory support. CHIEF COMPLAINT AND HISTORY OF PRESENT ILLNESS: As follows, the patient is a 64-year-old -Gabonese female with past medical history significant according to the records for the diagnosis of congestive heart failure and COPD, who was brought into the Emergency Room yesterday by EMS complaining of chest tightness, cough, shortness of breath and wheezing that had been going on for about a couple of days. She continued with increased work of breathing, accessory muscle use, failed BiPAP and ultimately got intubated in the Emergency Room. I believe as part of the workup, a COVID-19 screen was done. We are asked to assist with management. When I stopped by to see her, she was on mechanical ventilation, sedated. She was on Versed and fentanyl, not responding to my prompts but taking some spontaneous breaths on the mechanical ventilator. I do not have any history of vomiting or overt aspiration. With regards to the patient's tobacco use/abuse history, she is described as a former smoker. This really is as much of the history of presentation as I have. PAST MEDICAL HISTORY: Hypertension, coronary artery disease, congestive heart failure, ejection fraction reported as 40%, gastroesophageal reflux disease, chronic kidney disease stage III, osteoarthritis, schizoaffective disorder, COPD, atrial fibrillation, Smiley's palsy and chronic back pain. PAST SURGICAL HISTORY: She has had a cholecystectomy. She has had a hysterectomy. She has had right rotator cuff surgery and ablation for I believe treatment of atrial fibrillation. MEDICATIONS: She was on at the time I stopped by to see were reviewed. Pertinent medications include the following: Allopurinol 100 mg p.o. daily, baby aspirin 81 mg p.o. daily, Lipitor 40 mg p.o. at bedtime, azithromycin 500 mg IV daily, Coreg 6.25 mg p.o. daily, Rocephin 2 g IV q. 24 hours, Depakote 250 mg p.o. b.i.d., Lovenox 30 mg subcutaneous daily, fentanyl drip was going at 4 mcg/kg per hour, Versed was going at 1 mg per hour. Nitroglycerin drip, Tridil drip had been going at 10 mcg per minute, Ditropan 5 mg p.o. daily. ALLERGIES: CODEINE, SULFA DRUGS, LISINOPRIL. Nature of this allergy is unknown. DIET: Well-built lady. Acute weight loss. Again history is unknown. FAMILY AND SOCIAL HISTORY: Apparently lives in the community, described as a former smoker. Also, uses alcohol or illicit drug use or abuse history is unknown. Family history is otherwise unknown. REVIEW OF SYSTEMS: Unobtainable secondary to patient's medical and mental condition. Since she has been here, no gross hematochezia or melena, no gross hematuria, no hematemesis, no bloody tracheal secretions, no witnessed seizures. Review of systems otherwise unobtainable or as in body of history above. PHYSICAL EXAMINATION: VITAL SIGNS: At presentation over here, she was afebrile, temperature 98.4 degrees Fahrenheit, pulse of 71, respiratory rate of 22, blood pressure 165/63, got as high as 194/95, O2 sats were 95%, inspired oxygen concentration at that time was not recorded. When I stopped by to see her, O2 sats were 100% that was on the assist control mode of ventilation, tidal volumes 500, I believe the rate was set at 20. The PEEP was set at 6 and the FiO2 was 60%. GENERAL: Elderly looking thin -Gabonese female, normocephalic, atraumatic with mildly increased respiratory effort on the mechanical ventilator. HEAD, EYES, EARS, NOSE AND THROAT: She was anicteric, no conjunctival erythema. Oropharynx was moist. ET tube was in place, taped around 24 cm at the left. No gross jugular venous distention, no thyromegaly. NECK: Grossly, there were no palpable lymph nodes in the supraclavicular or submandibular lymph node chains. LUNGS: Auscultation of both lung pierre significant for diminished bilateral breath sounds, prolonged expiratory phase. She has a barrel chest. No wheezing. HEART: Heart sounds 1 and 2 are heard at the time of my evaluation, regular rate and rhythm without overt rubs or murmurs. ABDOMEN: Soft, flat. Bowel sounds are positive, nontender, no palpable hepatosplenomegaly. EXTREMITIES: Without overt digital clubbing or cyanosis. No pedal edema. Pedal pulses are 2+ bilaterally. NEUROLOGIC: Pupils were equal, round, about 2 mm, sluggishly reactive to light. Extraocular muscle movements could not be assessed. She did have spontaneous movements to all extremities. SKIN: Normal turgor without overt cellulitis or rash in the areas examined. Please see the wound care nurse's notes for full description of her skin as appropriate. Mood and affect could not be evaluated. She was sedated. LABORATORY DATA: From my review are as follows: Admission white cell count 8800, hemoglobin 11.3, hematocrit 33.6, platelet count 338. No band neutrophils reported. INR was 1.14. D-dimer was 387. Arterial blood gas at presentation showed a pH of 7.21, pCO2 of 46, pO2 of 97 that was on 60% FiO2. Most recent gas, pH is 7.34, pCO2 is down to 38, pO2 is 81 that was on 60% on the above-mentioned ventilator settings. Serum sodium 138, potassium 4.9, chloride 103, bicarbonate 16, BUN 27, and creatinine 2.7. Lactic acid level was 7.2 at presentation, is now down to 1.50, glucose was 229 at presentation. AST up at 169, ALT 83, CRP 1.8. Procalcitonin essentially normal. Urinalysis was negative for nitrites and leukocyte esterase and essentially bland. Coronavirus PCR testing was negative. Two sets of blood cultures are no growth to date. Chest x-ray was done at presentation. I have reviewed the chest x-ray. It essentially shows gross cardiomegaly with increased interstitial markings and alveolar type infiltrates consistent with pulmonary edema. The most recent x-ray reveals an endotracheal tube with the tip at the level of the clavicular heads and persistent bilateral increased interstitial markings with some cephalization. No gross pneumothorax, no gross bony fracture. She does have an element of scoliosis. ASSESSMENT: 1. Acute hypoxemic respiratory failure, on mechanical ventilatory support. 2. Acute congestive heart failure exacerbation. 3. Acute chronic obstructive pulmonary disease exacerbation. 4. History of hypertension with hypertensive urgency at presentation. 5. Acute on chronic kidney disease. 6. History of gastroesophageal reflux disease. 7. Osteoarthritis. 8. Schizoaffective disorder. 9. Atrial fibrillation by history. 10. Chronic back pain. 11. Metabolic acidosis. 12. Lactic acidosis. 13. Elevated serum transaminases. 14. Oropharyngeal dysphagia. PLAN: I do feel like pulmonary edema is a major player here. However, in the setting of the renal injury, it is unclear if she is going to be responsive to diuresis. Her home medications also do not appear to include any diuretic. At this point, she is coming down on her breathing treatments in her oxygenation. I have dropped the FiO2 to 50%. Ventilator-associated pneumonia bundle has been instituted. Oxygen will be weaned to keep sats greater than or equal to about 90%. Daily sedation assessment trials and spontaneous breathing trials will be done. I will discontinue the Versed drip in a bit to reduce the occurrence of delirium and continue fentanyl. She probably could be weaned from the fentanyl. We will target RASS scale of 0 to -1 in the short time. Psychoactive medications can be introduced as necessary. I will give her a one-time dose of Lasix 40 mg IV and see how she responds to it. Nephrology evaluation will certainly be in order and I believe Nephrology consultation has been placed. I will order urine electrolytes though to assist with evaluation of the renal injury. Urine sodium, urine creatinine will be ordered. Lactic acid level is now within normal limits. In this lady with severe COPD and barrel chest, I agree with empiric antibiotic treatment for community-acquired pneumonia coverage. A tracheal aspirate has been sent for Gram stain, cultures and sensitivities. She is appropriately on DVT prophylaxis. She will be placed on GI prophylaxis, especially being on positive pressure ventilation. Chronic disease medications will be reintroduced by the attending physician. Again, enteral nutrition will be the feeding modality of choice. Flu and pneumonia vaccination will be addressed per protocol. Thank you very much for the consult. We will follow along and make further recommendations as picture progresses/becomes clearer. In further review, it seems like this patient is seeing Dr. Awad and I would request that she would be consulted and the patient will be transferred to her services. I have seen her today and they can begin to see the patient in the morning. At this time, I have spent about 30-35 minutes of critical care time. She is critically ill on life-sustaining interventions including mechanical ventilatory support at high risk of from cardiopulmonary and renal function deterioration. JOB# [id number] NATHALIA/BERENICE
[2019-10-29 04:16] LABS: ABG Base Excess -4.9 mmol/L (-2.0-3.0); ABG HCO3 19.9 mmol/L (20.0-26.0); ABG Methemoglobin 0.3 % (0.0-1.5); ABG Oxygen Saturation 99.3 % (95.0-99.0); ABG PCO2 35.5 mm Hg; ABG PH 7.366 pH Units (7.350-7.450); ABG PO2 215.8 mm Hg (80.0-90.0)
[2019-10-29] MEDS: fentaNYL DRIP Premix 2,000 MCG/100 ML BAG IV SCH ×3 (04:22→21:28)
--- NOTE | 2019-10-29 05:49 | XRay Report ---
Chest single view INDICATION: Respiratory distress IMPRESSION: Heart size is normal. The endotracheal tube and esophagogastric tube project in good posi tion. No acute airspace disease. Signer Name: Titus Kaur MD Signed: 10/29/2019 5:45 AM Workstation Name: [id number]
[2019-10-29 05:53] LABS: Basophils % (Auto) 0.1 % (0.0-1.8); Eosinophils % (Auto) 0.1 % (0.0-4.3); Hematocrit 31.3 % (30.3-42.9); Hemoglobin 10.2 gm/dl (10.1-14.3); Lymphocytes # (Auto) 1.6 K/mm3 (1.2-5.4); Lymphocytes % (Auto) 16.2 % (13.4-35.0); Mean Corpuscular HGB Conc 33 % (30-34); Mean Corpuscular Volume 87 fl (79-97); Monocytes # (Auto) 0.8 K/mm3 (0.0-0.8); Monocytes % (Auto) 8.8 % (0.0-7.3); Platelet Count 272 K/mm3 (140-440); Red Blood Count 3.62 M/mm3 (3.65-5.03); Red Cell Distribution Width 17.2 % (13.2-15.2)
[2019-10-29] MEDS ORDERED: ROCURONIUM 50 MG/5 ML INJ IV ONE (06:05)
[2019-10-29] MEDS ORDERED: KETAMINE 500 MG/5 ML VIAL MDV ONE (06:05)
[2019-10-29 06:18] LABS: Calcium 8.4 mg/dL (8.4-10.2)
[2019-10-29 06:54] LABS: Creatinine,Urine 137.7 mg/dL (0.1-20.0)
[2019-10-29] MEDS: BUDESONIDE 0.5 MG/2 ML NEBU IH SCH ×2 (07:58→19:46)
[2019-10-29] MEDS: ARFORMOTEROL 15 MCG/2 ML NEBU IH SCH ×2 (07:58→19:46)
[2019-10-29] MEDS ORDERED: SIMPLE SYRUP 15 ML FEEDTUBE PRN ×2 (08:06)
[2019-10-29] MEDS ORDERED: SODIUM BICARBONATE 325 MG TAB FEEDTUBE PRN (08:06)
[2019-10-29] MEDS ORDERED: LIPASE 10,500/PROTEASE 25,000/AMYLASE 43,750 (UNITS) DR CAP FEEDTUBE PRN (08:06)
--- NOTE | 2019-10-29 09:00 | Consultation ---
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 Echo pending Past History Past Medical History: atrial fib, heart failure, hypertension, renal failure Past Surgical History: Other (Unable to obtain due to ventilator) Social history: smoking, other (Cocaine abuse) Family history: other (Unable to obtain due to ventilator) Medications and Allergies Allergies Allergy/AdvReac Type Severity Reaction Status Date / Time codeine Allergy Rash Verified 08/05/19 18:06 Sulfa (Sulfonamide Allergy Rash Verified 08/05/19 18:06 Antibiotics) lisinopril AdvReac Unknown Verified 08/05/19 18:06 Home Medications Medication Instructions Recorded Confirmed Last Taken Type traZODone [Desyrel] 50 mg PO QHS 08/09/13 10/29/19 04/05/14 History Budesonide/Formoterol Fumarate 10.2 gm IH Q4H 03/10/19 10/29/19 03/10/19 History [Symbicort 160-4.5 Mcg Inhaler] Chlorpheniramine/Dextromethorp 1 each PO Q6HR 03/10/19 10/29/19 03/10/19 History [Cough-Cold Tablet] allopurinoL [Zyloprim] 100 mg PO QDAY 03/10/19 10/29/19 03/10/19 History methOCARBAMOL 500 mg PO Q6HR PRN 03/27/19 10/29/19 Unknown History AtorvaSTATin [Lipitor] 40 mg PO QHS #30 tablet 04/07/19 10/29/19 Unknown Rx Aspirin EC [Halfprin EC] 81 mg PO DAILY #30 tablet. 07/18/19 10/29/19 Unknown Rx Depakote ER 250 mg PO BID #14 07/18/19 10/29/19 Unknown Rx Fluticasone [Flonase] 100 mcg NS QDAY #1 bottle 07/18/19 10/29/19 Unknown Rx Oxybutynin [Ditropan] 5 mg PO DAILY #7 07/18/19 10/29/19 Unknown Rx Pantoprazole [Protonix TAB] 40 mg PO QDAY #30 07/18/19 10/29/19 Unknown Rx carvediloL [Coreg] 6.25 mg PO DAILY #60 07/18/19 10/29/19 Unknown Rx Aspirin [Aspirin BABY CHEW TAB] 81 mg PO QDAY #30 tab.chew 07/23/19 10/29/19 Unknown Rx Acetaminophen [Non-Aspirin Extra 500 mg PO Q6HR PRN #30 tablet 08/05/19 10/29/19 Unknown Rx Strength] Agnieskza Root [Agnieszka] 250 mg PO QID PRN #30 capsule 08/05/19 10/29/19 Unknown Rx Metoclopramide [Reglan] 10 mg PO QID PRN #30 tablet 08/05/19 10/29/19 Unknown Rx traMADoL [Ultram 50 MG tab] 50 mg PO Q6HR PRN #7 tablet 09/27/19 10/29/19 Unknown Rx Active Meds: Active Medications Allopurinol (Zyloprim) 100 mg PO QDAY [facility] Lipase/Protease/Amylase (Pancrecollins [place] 10,500 Unit) 1 each FEEDTUBE PRN PRN PRN Reason: For Clogged Feeding Tube Arformoterol Tartrate (Brovana Nebu) 15 mcg IH Q12HRT [facility] Last Admin: 10/29/19 07:58 Dose: 15 mcg Documented by: Aspirin (Baby Aspirin) 81 mg PO QDAY [facility] Atorvastatin Calcium (Lipitor) 40 mg PO QHS [facility] Last Admin: 10/28/19 21:26 Dose: 40 mg Documented by: Budesonide (Pulmicort) 0.5 mg IH Q12HRT [facility] Last Admin: 10/29/19 07:58 Dose: 0.5 mg Documented by: Carvedilol (Coreg) 6.25 mg PO DAILY [facility] Divalproex Sodium (Depakote Dr) 250 mg PO BID [facility] Last Admin: 10/28/19 21:26 Dose: 250 mg Documented by: Enoxaparin Sodium (Enoxaparin) 30 mg SUB-Q QDAY [facility] Fentanyl (Sublimaze) 50 mcg IV Q10MIN PRN PRN Reason: ANALGESIA Last Admin: 10/28/19 11:15 Dose: 50 mcg Documented by: Hydrophilic Ointment (Vaseline Lip Therapy) 1 applic TP Q2HR PRN PRN Reason: Dry Lips Nitroglycerin/Dextrose (Tridil Drip 50mg/250ml) 50 mg in 250 mls @ 3 mls/hr IV TITR MARCIO; Protocol Last Titration: 10/28/19 07:24 Dose: Infused Documented by: Fentanyl Citrate (Fentanyl Drip Premix) 2,000 mcg in 100 mls @ 3.493 mls/hr IV TITR MARCIO; Protocol Last Admin: 10/29/19 04:22 Dose: 4 mcg/kg/hr, 13.971 mls/hr Documented by: Midazolam HCl 100 mg/ Sodium (Chloride) 100 mls @ 2 mls/hr IV TITR MARCIO; Protocol Last Titration: 10/28/19 11:49 Dose: 1 mg/hr, 1 mls/hr Documented by: Ceftriaxone Sodium (Rocephin/Ns 2 Gm/100 Ml) 2 gm in 100 mls @ 200 mls/hr IV Q24HR MARCIO; Protocol Azithromycin 500 mg/ Sodium (Chloride) 250 mls @ 250 mls/hr IV Q24HR MARCIO; Protocol Midazolam HCl (Versed) 2 mg IV Q10MIN PRN PRN Reason: Sedation Multi-Ingred Cream/Lotion/Oil/Oint (Artificial Tears Ophth Oint) 1 applic OU Q4HR PRN PRN Reason: Dry Eye(s) Oxybutynin Chloride (Ditropan) 5 mg PO DAILY MARCIO Simple Syrup (Simple Syrup) 15 ml FEEDTUBE PRN PRN PRN Reason: Hypoglycemia Simple Syrup (Simple Syrup) 30 ml FEEDTUBE PRN PRN PRN Reason: Hypoglycemia Sodium Bicarbonate (Sodium Bicarbonate) 325 mg FEEDTUBE PRN PRN PRN Reason: For Clogged Feeding Tube Sodium Chloride (Sodium Chloride Flush Syringe 10 Ml) 10 ml IV BID [facility] Last Admin: 10/28/19 21:26 Dose: 10 ml Documented by: Sodium Chloride (Sodium Chloride Flush Syringe 10 Ml) 10 ml IV PRN PRN PRN Reason: LINE FLUSH Review of Systems ROS unobtainable: due to endotracheal tube Physical Examination Vital Signs Temp Pulse Resp BP Pulse Ox 98.4 F 71 22 165/63 95 10/28/19 03:16 10/28/19 03:16 10/28/19 03:16 10/28/19 03:16 10/28/19 03:16 General appearance: no acute distress, other (on vent) HEENT: Positive: PERRL Neck: Positive: neck supple Cardiac: Positive: Reg Rate and Rhythm, S1/S2 Lungs: Positive: Normal Exam Neuro: Positive: Grossly Intact Abdomen: Positive: Soft Extremities: Absent: edema Results 10/29/19 04:35 10/29/19 04:35 Cardiac Enzymes 10/28/19 Range/Units 12:41 Lactate Dehydrogenase 307 H (91-180) units/L CBC 10/29/19 Range/Units 04:35 WBC 9.5 (4.5-11.0) K/mm3 RBC 3.62 L (3.65-5.03) M/mm3 Hgb 10.2 (10.1-14.3) gm/dl Hct 31.3 (30.3-42.9) % Plt Count 272 (140-440) K/mm3 Lymph # 1.6 (1.2-5.4) K/mm3 [place] # 0.8 (0.0-0.8) K/mm3 Eos # 0.0 (0.0-0.4) K/mm3 Baso # 0.0 (0.0-0.1) K/mm3 Comprehensive Metabolic Panel 10/28/19 10/29/19 Range/Units 12:41 04:35 Sodium 142 (137-145) mmol/L Potassium 4.3 (3.6-5.0) mmol/L Chloride 105.4 (98-107) mmol/L Carbon Dioxide 18 L (22-30) mmol/L BUN 41 H (7-17) mg/dL Creatinine 3.2 H (0.7-1.2) mg/dL Glucose 130 H 88 (65-100) mg/dL Calcium 8.4 (8.4-10.2) mg/dL
--- NOTE | 2019-10-29 09:35 | Progress Note ---
Assessment and Plan Assessment and plan: Acute hypoxemic respiratory failure. Etiology is multifactorial secondary to bilateral pneumonia, heart failure and pulmonary hypertension. Bilateral pneumonia. COVID-19 negative on 10/28/2019. Sepsis. Patient meets criteria given the tachycardia, tachypnea and diagnosis of pneumonia. Patient also had elevated lactic acid on admission greater than 7. IV antibiotics and ID consultation. Acute systolic heart failure. Echocardiogram completed 02/2019 revealed normal EF 60% with mild dilatation of the left atrium, and mild calcific aortic stenosis R/LHC 07/2019 revealed moderate severe pulmonary hypertension, PASP 60. No significant aortic stenosis, normal coronary arteries and LVEF of 45%. Paroxysmal atrial fibrillation. Cardiology following Chronic kidney disease III. Nephrology consulted Hypertension. Resume antihypertensive medications as needed. Schizoaffective disorder with depression. 10/29/2019. Patient currently with AC/PRVC mode ventilation with rate 20, tidal volume 450, FiO2 28% and PEEP of 6. Continue SBT per pulmonary. Continue bronchodilators/nebulizers. Continue IV antibiotics. Patient currently with Versed for sedation. Continue diuresis per cardiology/nephrology recommendations. Echocardiogram pending. The high probability of a clinically significant, sudden or life threatening deterioration of the [cardiac and respiratory] system(s) required my full and direct attention, intervention and personal management. The aggregate critical care time was [32] minutes. This time is in addition to time spent performing reported procedures but includes the following: [x] Data Review and interpretation [x] Patient assessment and monitoring of vital signs [x] Documentation [x] Medication orders and management History Interval history: No new issues overnight. Hospitalist Physical - Constitutional Vitals: Temp Pulse Resp BP Pulse Ox 97.5 F L 57 L 20 124/41 97 10/29/19 07:54 10/29/19 08:08 10/29/19 07:58 10/29/19 08:08 10/29/19 08:08 General appearance: Present: no acute distress, other (on vent) - EENT Eyes: Present: PERRL, EOM intact ENT: hearing intact, clear oral mucosa, dentition normal - Neck Neck: Present: supple, normal ROM - Respiratory Respiratory effort: normal Respiratory: bilateral: CTA - Cardiovascular Rhythm: regular Heart Sounds: Present: S1 & S2. Absent: gallop, rub - Extremities Extremities: no ischemia, No edema, Full ROM - Abdominal General gastrointestinal: soft, non-tender, non-distended, normal bowel sounds - Integumentary Integumentary: Present: clear, warm, dry - Neurologic Neurologic: CNII-XII intact, moves all extremities HEART Score - HEART Score Troponin: Troponin T < 0.010 ng/mL (0.00-0.029) 10/28/19 03:56 Results - Labs CBC & Chem 7: 10/29/19 04:35 10/29/19 04:35 Labs: Laboratory Last Values WBC 9.5 K/mm3 (4.5-11.0) 10/29/19 04:35 RBC 3.62 M/mm3 (3.65-5.03) L 10/29/19 04:35 Hgb 10.2 gm/dl (10.1-14.3) 10/29/19 04:35 Hct 31.3 % (30.3-42.9) 10/29/19 04:35 MCV 87 fl (79-97) 10/29/19 04:35 MCH 28 pg (28-32) 10/29/19 04:35 MCHC 33 % (30-34) 10/29/19 04:35 RDW 17.2 % (13.2-15.2) H 10/29/19 04:35 Plt Count 272 K/mm3 (140-440) 10/29/19 04:35 Lymph % (Auto) 16.2 % (13.4-35.0) 10/29/19 04:35 [place] % (Auto) 8.8 % (0.0-7.3) H 10/29/19 04:35 Eos % (Auto) 0.1 % (0.0-4.3) 10/29/19 04:35 Baso % (Auto) 0.1 % (0.0-1.8) 10/29/19 04:35 Lymph # 1.6 K/mm3 (1.2-5.4) 10/29/19 04:35 [place] # 0.8 K/mm3 (0.0-0.8) 10/29/19 04:35 Eos # 0.0 K/mm3 (0.0-0.4) 10/29/19 04:35 Baso # 0.0 K/mm3 (0.0-0.1) 10/29/19 04:35 Add Manual Diff Complete 10/28/19 03:56 Total Counted 100 10/28/19 03:56 Seg Neutrophils % 74.8 % (40.0-70.0) H 10/29/19 04:35 Seg Neuts % (Manual) 59.0 % (40.0-70.0) 10/28/19 03:56 Band Neutrophils % 0 % 10/28/19 03:56 Lymphocytes % (Manual) 30.0 % (13.4-35.0) 10/28/19 03:56 Reactive Lymphs % (Man) 0 % 10/28/19 03:56 Monocytes % (Manual) 5.0 % (0.0-7.3) 10/28/19 03:56 Eosinophils % (Manual) 5.0 % (0.0-4.3) H 10/28/19 03:56 Basophils % (Manual) 1.0 % (0.0-1.8) 10/28/19 03:56 Metamyelocytes % 0 % 10/28/19 03:56 Myelocytes % 0 % 10/28/19 03:56 Promyelocytes % 0 % 10/28/19 03:56 Blast Cells % 0 % 10/28/19 03:56 Nucleated RBC % Not Reportable 10/28/19 03:56 Seg Neutrophils # 7.1 K/mm3 (1.8-7.7) 10/29/19 04:35 Seg Neutrophils # Man 5.2 K/mm3 (1.8-7.7) 10/28/19 03:56 Band Neutrophils # 0.0 K/mm3 10/28/19 03:56 Lymphocytes # (Manual) 2.6 K/mm3 (1.2-5.4) 10/28/19 03:56 Abs React Lymphs (Man) 0.0 K/mm3 10/28/19 03:56 Monocytes # (Manual) 0.4 K/mm3 (0.0-0.8) 10/28/19 03:56 Eosinophils # (Manual) 0.4 K/mm3 (0.0-0.4) 10/28/19 03:56 Basophils # (Manual) 0.1 K/mm3 (0.0-0.1) 10/28/19 03:56 Metamyelocytes # 0.0 K/mm3 10/28/19 03:56 Myelocytes # 0.0 K/mm3 10/28/19 03:56 Promyelocytes # 0.0 K/mm3 10/28/19 03:56 Blast Cells # 0.0 K/mm3 10/28/19 03:56 WBC Morphology Not Reportable 10/28/19 03:56 Hypersegmented Neuts Not Reportable 10/28/19 03:56 Hyposegmented Neuts Not Reportable 10/28/19 03:56 Hypogranular Neuts Not Reportable 10/28/19 03:56 Smudge Cells Not Reportable 10/28/19 03:56 Toxic Granulation Not Reportable 10/28/19 03:56 Toxic Vacuolation Not Reportable 10/28/19 03:56 Dohle Bodies Not Reportable 10/28/19 03:56 Pelger-Huet Anomaly Not Reportable 10/28/19 03:56 Guy Rods Not Reportable 10/28/19 03:56 Platelet Estimate Consistent w auto 10/28/19 03:56 Clumped Platelets Not Reportable 10/28/19 03:56 Plt Clumps, EDTA Not Reportable 10/28/19 03:56 Large Platelets Not Reportable 10/28/19 03:56 Giant Platelets Not Reportable 10/28/19 03:56 Platelet Satelliting Not Reportable 10/28/19 03:56 Plt Morphology Comment Not Reportable 10/28/19 03:56 RBC Morphology Not Reportable 10/28/19 03:56 Dimorphic RBCs Not Reportable 10/28/19 03:56 Polychromasia Not Reportable 10/28/19 03:56 Hypochromasia Not Reportable 10/28/19 03:56 Poikilocytosis Not Reportable 10/28/19 03:56 Anisocytosis Not Reportable 10/28/19 03:56 Microcytosis Not Reportable 10/28/19 03:56 Macrocytosis Not Reportable 10/28/19 03:56 Spherocytes Not Reportable 10/28/19 03:56 Pappenheimer Bodies Not Reportable 10/28/19 03:56 Sickle Cells Not Reportable 10/28/19 03:56 Target Cells Not Reportable 10/28/19 03:56 Tear Drop Cells Not Reportable 10/28/19 03:56 Ovalocytes Not Reportable 10/28/19 03:56 Helmet Cells Not Reportable 10/28/19 03:56 Barclay-Cicero Bodies Not Reportable 10/28/19 03:56 Bagley Rings Not Reportable 10/28/19 03:56 Whit Cells Not Reportable 10/28/19 03:56 Bite Cells Not Reportable 10/28/19 03:56 Crenated Cell Not Reportable 10/28/19 03:56 Elliptocytes Not Reportable 10/28/19 03:56 Acanthocytes (Spur) Not Reportable 10/28/19 03:56 Rouleaux Not Reportable 10/28/19 03:56 Hemoglobin C Crystals Not Reportable 10/28/19 03:56 Schistocytes Not Reportable 10/28/19 03:56 Malaria parasites Not Reportable 10/28/19 03:56 Stefan Bodies Not Reportable 10/28/19 03:56 Hem Pathologist Commnt No 10/28/19 03:56 PT 14.7 Sec. (12.2-14.9) 10/28/19 03:56 INR 1.14 (0.87-1.13) H 10/28/19 03:56 D-Dimer 966.63 ng/mlDDU (0-234) H 10/28/19 12:41 ABG pH 7.366 pH Units (7.350-7.450) 10/29/19 04:05 ABG pCO2 35.5 mm Hg 10/29/19 04:05 ABG pO2 215.8 mm Hg (80.0-90.0) H 10/29/19 04:05 ABG HCO3 19.9 mmol/L (20.0-26.0) L 10/29/19 04:05 ABG O2 Saturation 99.3 % (95.0-99.0) H 10/29/19 04:05 ABG O2 Content 13.9 (0.0-44) 10/29/19 04:05 ABG Base Excess -4.9 mmol/L (-2.0-3.0) L 10/29/19 04:05 ABG Hemoglobin 9.8 gm/dl (12.0-16.0) L 10/29/19 04:05 ABG Carboxyhemoglobin 1.7 % (0.0-5.0) 10/29/19 04:05 ABG Methemoglobin 0.3 % (0.0-1.5) 10/29/19 04:05 Oxyhemoglobin 97.3 % (95.0-99.0) 10/29/19 04:05 FiO2 50 % 10/29/19 04:05 Sodium 142 mmol/L (137-145) 10/29/19 04:35 Potassium 4.3 mmol/L (3.6-5.0) 10/29/19 04:35 Chloride 105.4 mmol/L (98-107) 10/29/19 04:35 Carbon Dioxide 18 mmol/L (22-30) L 10/29/19 04:35 Anion Gap 23 mmol/L 10/29/19 04:35 BUN 41 mg/dL (7-17) H 10/29/19 04:35 Creatinine 3.2 mg/dL (0.7-1.2) H 10/29/19 04:35 Estimated GFR 18 ml/min 10/29/19 04:35 BUN/Creatinine Ratio 13 % 10/29/19 04:35 Glucose 88 mg/dL (65-100) 10/29/19 04:35 POC Glucose 89 (70-105) 10/28/19 22:55 Lactic Acid 1.50 mmol/L (0.7-2.0) 10/28/19 08:08 Calcium 8.4 mg/dL (8.4-10.2) 10/29/19 04:35 Magnesium 3.20 mg/dL (1.7-2.3) H 10/28/19 05:11 Ferritin 34.3 ng/mL (13.0-400.0) 10/28/19 12:41 Total Bilirubin 0.20 mg/dL (0.1-1.2) 10/28/19 05:11 AST 169 units/L (5-40) H 10/28/19 05:11 ALT 83 units/L (7-56) H 10/28/19 05:11 Alkaline Phosphatase 210 units/L (35-129) H 10/28/19 05:11 Lactate Dehydrogenase 307 units/L (91-180) H 10/28/19 12:41 Troponin T < 0.010 ng/mL (0.00-0.029) 10/28/19 03:56 C-Reactive Protein 2.60 mg/dL (0.00-1.30) H 10/28/19 12:41 NT-Pro-B Natriuret Pep 34951 pg/mL (0-900) H 10/28/19 05:11 Total Protein 7.1 g/dL (6.3-8.2) 10/28/19 05:11 Albumin 3.7 g/dL (3.9-5) L 10/28/19 05:11 Albumin/Globulin Ratio 1.1 % 10/28/19 05:11 Procalcitonin 0.63 ng/mL (<0.15) 10/28/19 12:41 Urine Color Straw (Yellow) 10/28/19 10:56 Urine Turbidity Slightly-cloudy (Clear) 10/28/19 10:56 Urine pH 5.0 (5.0-7.0) 10/28/19 10:56 Ur Specific [place] 1.008 (1.003-1.030) 10/28/19 10:56 Urine Protein <15 mg/dl mg/dL (Negative) 10/28/19 10:56 Urine Glucose (UA) Neg mg/dL (Negative) 10/28/19 10:56 Urine Ketones Neg mg/dL (Negative) 10/28/19 10:56 Urine Blood Neg (Negative) 10/28/19 10:56 Urine Nitrite Neg (Negative) 10/28/19 10:56 Urine Bilirubin Neg (Negative) 10/28/19 10:56 Urine Urobilinogen < 2.0 mg/dL (<2.0) 10/28/19 10:56 Ur Leukocyte Esterase Neg (Negative) 10/28/19 10:56 Urine WBC (Auto) 2.0 /HPF (0.0-6.0) 10/28/19 10:56 Urine RBC (Auto) < 1.0 /HPF (0.0-6.0) 10/28/19 10:56 U Epithel Cells (Auto) 1.0 /HPF (0-13.0) 10/28/19 10:56 Urine Mucus Few /HPF 10/28/19 10:56 Urine Creatinine 137.7 mg/dL (0.1-20.0) H 10/29/19 06:00 Urine Sodium 51 mmol/L 10/29/19 06:00 Coronavirus (PCR) Negative (Negative) 10/28/19 08:24 Microbiology: Microbiology 10/28/19 05:11 Peripheral/Venous Blood Culture - Preliminary NO GROWTH AFTER 24 HOURS 10/28/19 05:11 Peripheral/Venous Blood Culture - Preliminary NO GROWTH AFTER 24 HOURS Stauffer/IV: Voiding Method Indwelling Catheter IV Catheter Type [Left Hand] INT / Saline Lock IV Catheter Type [Right Hand] INT / Saline Lock IV Catheter Type [Right Peripheral IV Antecubital] Active Medications - Current Medications Current Medications: Generic Name Dose Route Start Last Admin Trade Name Freq PRN Reason Stop Dose Admin Allopurinol 100 mg 10/29/19 10:00 Zyloprim PO QDAY MARCIO Lipase/Protease/Amylase 1 each 10/29/19 08:[address] 10,500 Unit FEEDTUBE PRN PRN For Clogged Feeding Tube Arformoterol Tartrate 15 mcg 10/28/19 20:00 10/29/19 07:58 Brovana Nebu IH 15 mcg Q12HRT MARCIO Administration Aspirin 81 mg 10/29/19 10:00 Baby Aspirin PO QDAY [facility] Atorvastatin Calcium 40 mg 10/28/19 22:00 10/28/19 21:26 Lipitor PO 40 mg QHS MARCIO Administration Budesonide 0.5 mg 10/28/19 20:00 10/29/19 07:58 Pulmicort IH 0.5 mg Q12HRT MARCIO Administration Carvedilol 6.25 mg 10/29/19 10:00 Coreg PO DAILY [facility] Divalproex Sodium 250 mg 10/28/19 22:00 10/28/19 21:[address] PO 250 mg BID MARCIO Administration Enoxaparin Sodium 30 mg 10/29/19 10:00 Enoxaparin SUB-Q QDAY [facility] Fentanyl 50 mcg 10/28/19 04:57 10/28/19 11:15 Sublimaze IV 50 mcg Q10MIN PRN Administration ANALGESIA Hydrophilic Ointment 1 applic 10/28/19 04:57 Vaseline Lip Therapy TP Q2HR PRN Dry Lips Nitroglycerin/Dextrose 50 mg in 250 mls @ 3 mls/hr 10/28/19 05:00 10/28/19 07:24 Tridil Drip 50mg/250ml IV Infused TITR MARCIO Titration Protocol 10 MCG/MIN Fentanyl Citrate 2,000 mcg in 100 mls @ 3.493 mls/hr 10/28/19 05:00 10/29/19 04:22 Fentanyl Drip Premix IV 4 mcg/kg/hr TITR MARCIO 13.971 mls/hr Administration Protocol 1 MCG/KG/HR Midazolam HCl 100 mg/ Sodium 100 mls @ 2 mls/hr 10/28/19 05:00 10/28/19 11:49 Chloride IV 1 mg/hr TITR MARCIO 1 mls/hr Titration Protocol 2 MG/HR Ceftriaxone Sodium 2 gm in 100 mls @ 200 mls/hr 10/29/19 10:00 Rocephin/Ns 2 Gm/100 Ml IV Q24HR MARCIO Protocol Azithromycin 500 mg/ Sodium 250 mls @ 250 mls/hr 10/29/19 10:00 Chloride IV Q24HR MARCIO Protocol Midazolam HCl 2 mg 10/28/19 04:57 Versed IV Q10MIN PRN Sedation Multi-Ingred Cream/Lotion/Oil/Oint 1 applic 10/28/19 04:57 Artificial Tears Ophth Oint OU Q4HR PRN Dry Eye(s) Oxybutynin Chloride 5 mg 10/29/19 10:00 Ditropan PO DAILY MARCIO Simple Syrup 15 ml 10/29/19 08:06 Simple Syrup FEEDTUBE PRN PRN Hypoglycemia Simple Syrup 30 ml 10/29/19 08:06 Simple Syrup FEEDTUBE PRN PRN Hypoglycemia Sodium Bicarbonate 325 mg 10/29/19 08:06 Sodium Bicarbonate FEEDTUBE PRN PRN For Clogged Feeding Tube Sodium Chloride 10 ml 10/28/19 22:00 10/28/19 21:26 Sodium Chloride Flush Syringe 10 Ml IV 10 ml BID MARCIO Administration Sodium Chloride 10 ml 10/28/19 11:46 Sodium Chloride Flush Syringe 10 Ml IV PRN PRN LINE FLUSH Nutrition/Malnutrition Assess - Dietary Evaluation Nutrition/Malnutrition Findings: Nutrition Notes Start: 10/29/19 07:58 Freq: Status: Active Protocol: Document 10/29/19 07:58 LM (Rec: 10/29/19 08:06 LM [email or web address]) Nutrition Notes Need for Assessment generated from: MD Order Initial or Follow up Assessment Current Diagnosis CKD(stage I-IV),COPD, Hypertension,Heart Failure Other Pertinent Diagnosis R/O COVID-19, pneu, tobacco/ cocaine dependence, schizophrenia, depression Current Diet no diet Labs/Tests BUN 41 Cr 3.2 Pertinent Medications Reviewed Height 5 ft 4 in Weight 69.8 kg [place] Body Weight (kg) 54.54 BMI 26.4 Weight Status Overweight Subjective/Other Information MD consult to evaluate nutritional intake and for TF. RN screen for MST. Pt is on the vent. Burn Absent Trauma Absent Current % PO Negligible Minimum of two criteria No physical signs of malnutrition #1 Nutrition Diagnosis Inadequate oral intake Etiology mechanical vent As Evidenced by Signs and Symptoms Pt unable to consume PO Is patient on ventilator? Yes Is Patient Ambulatory and/or Out of Bed No REE-([place]-confined to bed) 1490.807 Calculation Used for Recommendations [place] Additional Notes Protein: 84-140g (1.2-2g/kg) Fluid: 1ml/kcal Nutrition Intervention Change Diet Order: TF Nutrition Support: Osmolite 1.5 at 40ml/hr Flush 120ml q4h Kcal 1,440 Protein (gm) 60 Fluid (mL) 732 Goal #1 TF start/tolerance Anticipated Discharge Needs: unable to determine at this time Follow-Up By: 10/31/19 Additional Comments F/U for TF start/tolerance
[2019-10-29] MEDS: cefTRIAXone/NS 2 GM/100 ML 2 GM/100 ML BAG IV SCH (10:08)
[2019-10-29] MEDS: allopurinoL 100 MG TAB PO SCH (10:10)
[2019-10-29] MEDS: ASPIRIN 81 MG TAB CHEW PO SCH (10:10)
[2019-10-29] MEDS: ENOXAPARIN 30 MG/0.3 ML INJ SUB-Q SCH (10:10)
[2019-10-29] MEDS: DIVALPROEX DR 250 MG TAB PO SCH ×2 (10:12→22:45)
[2019-10-29] MEDS: OXYBUTYNIN 5 MG TAB PO SCH (10:12)
[2019-10-29] MEDS: AZITHROMYCIN 500 MG in SODIUM CHLORIDE 0.9% 250ML 250 ML IV SCH (10:13)
[2019-10-29] MEDS: carvediloL 6.25 MG TAB PO SCH (10:14)
--- NOTE | 2019-10-29 10:53 | Consultation ---
History of Present Illness - Reason for Consult Consult date: 10/29/19 Sepsis Requesting physician: FATUMA ROBIN - History of Present Illness The patient is a 64-year-old female with hypertension, CKD, cardiomyopathy, pulmonary hypertension, paroxysmal atrial fibrillation on anticoagulation, history of substance abuse, depression, schizoaffective disorder was admitted to the hospital with complaints of chest tightness, cough and shortness of breath. She was noted to have respiratory distress and failed BiPAP in the ER and was subsequently intubated. Chest x-ray was suggestive of patchy bilateral airspace disease. Infectious diseases was consulted due to concerns for sepsis and infection. She has remained afebrile. Still on the vent but minimal settings. Review of Systems: Unable to obtain, patient intubated Past History Past Medical History: atrial fib, heart failure, hypertension, renal failure Past Surgical History: Other (Unable to obtain due to ventilator) Social history: smoking, other (Cocaine abuse) Family history: other (Unable to obtain due to ventilator) Medications and Allergies Allergies Allergy/AdvReac Type Severity Reaction Status Date / Time codeine Allergy Rash Verified 08/05/19 18:06 Sulfa (Sulfonamide Allergy Rash Verified 08/05/19 18:06 Antibiotics) lisinopril AdvReac Unknown Verified 08/05/19 18:06 Home Medications Medication Instructions Recorded Confirmed Last Taken Type traZODone [Desyrel] 50 mg PO QHS 08/09/13 10/29/19 04/05/14 History Budesonide/Formoterol Fumarate 10.2 gm IH Q4H 03/10/19 10/29/19 03/10/19 History [Symbicort 160-4.5 Mcg Inhaler] Chlorpheniramine/Dextromethorp 1 each PO Q6HR 03/10/19 10/29/19 03/10/19 History [Cough-Cold Tablet] allopurinoL [Zyloprim] 100 mg PO QDAY 03/10/19 10/29/19 03/10/19 History methOCARBAMOL 500 mg PO Q6HR PRN 03/27/19 10/29/19 Unknown History AtorvaSTATin [Lipitor] 40 mg PO QHS #30 tablet 04/07/19 10/29/19 Unknown Rx Aspirin EC [Halfprin EC] 81 mg PO DAILY #30 tablet. 07/18/19 10/29/19 Unknown Rx Depakote ER 250 mg PO BID #14 07/18/19 10/29/19 Unknown Rx Fluticasone [Flonase] 100 mcg NS QDAY #1 bottle 07/18/19 10/29/19 Unknown Rx Oxybutynin [Ditropan] 5 mg PO DAILY #7 07/18/19 10/29/19 Unknown Rx Pantoprazole [Protonix TAB] 40 mg PO QDAY #30 07/18/19 10/29/19 Unknown Rx carvediloL [Coreg] 6.25 mg PO DAILY #60 07/18/19 10/29/19 Unknown Rx Aspirin [Aspirin BABY CHEW TAB] 81 mg PO QDAY #30 tab.chew 07/23/19 10/29/19 Unknown Rx Acetaminophen [Non-Aspirin Extra 500 mg PO Q6HR PRN #30 tablet 08/05/19 10/29/19 Unknown Rx Strength] Agnieszka Root [Agnieszka] 250 mg PO QID PRN #30 capsule 08/05/19 10/29/19 Unknown Rx Metoclopramide [Reglan] 10 mg PO QID PRN #30 tablet 08/05/19 10/29/19 Unknown Rx traMADoL [Ultram 50 MG tab] 50 mg PO Q6HR PRN #7 tablet 09/27/19 10/29/19 Unknown Rx Active Meds: Active Medications Allopurinol (Zyloprim) 100 mg PO QDAY [facility] Last Admin: 10/29/19 10:10 Dose: 100 mg Documented by: Lipase/Protease/Amylase (Devin Grissom 10,500 Unit) 1 each FEEDTUBE PRN PRN PRN Reason: For Clogged Feeding Tube Arformoterol Tartrate (Brovana Nebu) 15 mcg IH Q12HRT [facility] Last Admin: 10/29/19 07:58 Dose: 15 mcg Documented by: Aspirin (Baby Aspirin) 81 mg PO QDAY [facility] Last Admin: 10/29/19 10:10 Dose: 81 mg Documented by: Atorvastatin Calcium (Lipitor) 40 mg PO QHS [facility] Last Admin: 10/28/19 21:26 Dose: 40 mg Documented by: Budesonide (Pulmicort) 0.5 mg IH Q12HRT [facility] Last Admin: 10/29/19 07:58 Dose: 0.5 mg Documented by: Carvedilol (Coreg) 6.25 mg PO DAILY [facility] Last Admin: 10/29/19 10:14 Dose: 6.25 mg Documented by: Divalproex Sodium (Depakote Dr) 250 mg PO BID [facility] Last Admin: 10/29/19 10:12 Dose: 250 mg Documented by: Enoxaparin Sodium (Enoxaparin) 30 mg SUB-Q QDAY [facility] Last Admin: 10/29/19 10:10 Dose: 30 mg Documented by: Fentanyl (Sublimaze) 50 mcg IV Q10MIN PRN PRN Reason: ANALGESIA Last Admin: 10/28/19 11:15 Dose: 50 mcg Documented by: Hydrophilic Ointment (Vaseline Lip Therapy) 1 applic TP Q2HR PRN PRN Reason: Dry Lips Nitroglycerin/Dextrose (Tridil Drip 50mg/250ml) 50 mg in 250 mls @ 3 mls/hr IV TITR MARCIO; Protocol Last Titration: 10/28/19 07:24 Dose: Infused Documented by: Fentanyl Citrate (Fentanyl Drip Premix) 2,000 mcg in 100 mls @ 3.493 mls/hr IV TITR MARCIO; Protocol Last Admin: 10/29/19 04:22 Dose: 4 mcg/kg/hr, 13.971 mls/hr Documented by: Midazolam HCl 100 mg/ Sodium (Chloride) 100 mls @ 2 mls/hr IV TITR MARCIO; Protocol Last Titration: 10/28/19 11:49 Dose: 1 mg/hr, 1 mls/hr Documented by: Ceftriaxone Sodium (Rocephin/Ns 2 Gm/100 Ml) 2 gm in 100 mls @ 200 mls/hr IV Q24HR MARCIO; Protocol Last Admin: 10/29/19 10:08 Dose: 200 mls/hr Documented by: Azithromycin 500 mg/ Sodium (Chloride) 250 mls @ 250 mls/hr IV Q24HR MARCIO; Protocol Last Admin: 10/29/19 10:13 Dose: 250 mls/hr Documented by: Midazolam HCl (Versed) 2 mg IV Q10MIN PRN PRN Reason: Sedation Multi-Ingred Cream/Lotion/Oil/Oint (Artificial Tears Ophth Oint) 1 applic OU Q4HR PRN PRN Reason: Dry Eye(s) Oxybutynin Chloride (Ditropan) 5 mg PO DAILY [facility] Last Admin: 05/31/20 10:12 Dose: 5 mg Documented by: Simple Syrup (Simple Syrup) 15 ml FEEDTUBE PRN PRN PRN Reason: Hypoglycemia Simple Syrup (Simple Syrup) 30 ml FEEDTUBE PRN PRN PRN Reason: Hypoglycemia Sodium Bicarbonate (Sodium Bicarbonate) 325 mg FEEDTUBE PRN PRN PRN Reason: For Clogged Feeding Tube Sodium Chloride (Sodium Chloride Flush Syringe 10 Ml) 10 ml IV BID MARCIO Last Admin: 10/29/19 10:13 Dose: 10 ml Documented by: Sodium Chloride (Sodium Chloride Flush Syringe 10 Ml) 10 ml IV PRN PRN PRN Reason: LINE FLUSH Physical Examination - Physical Exam Narrative exam: Physical Exam: Constitutional: sedated, intubated, on the vent Head, Ears, Nose: Normocephalic, atraumatic. External ears, nose normal Eyes: Conjunctivae/corneas clear. No icterus. No ptosis. Neck: intubated Oral: intubated Cardiovascular: S1, S2 + Respiratory: AE fair bilaterally and equal GI: Soft, bowel sounds + Musculoskeletal: No pedal edema, no cyanosis. Skin: No rash or abscess Hem/Lymphatic: No palpable cervical or supraclavicular nodes. No lymphangitis Psych: no agitation Neurological: sedated, intubated, on the vent, exam limited - Constitutional Vitals: Vital Signs Temp Pulse Resp BP Pulse Ox 97.5 F L 65 20 125/45 97 10/29/19 07:54 10/29/19 10:14 10/29/19 07:58 10/29/19 10:14 10/29/19 08:08 Temperature -Last 24 Hours Temperature 97.5 F Temperature 98.9 F Temperature 98.7 F Temperature 98.3 F Temperature 98.3 F Temperature 97.3 F Temperature 97.9 F Results - Labs CBC & Chem 7: 10/29/19 04:35 10/29/19 04:35 Labs: Abnormal lab results 10/28/19 10/28/19 10/29/19 Range/Units 12:41 12:41 04:05 RBC (3.65-5.03) M/mm3 RDW (13.2-15.2) % Brown % (Auto) (0.0-7.3) % Seg Neutrophils % (40.0-70.0) % D-Dimer 966.63 H (0-234) ng/mlDDU ABG pO2 215.8 H (80.0-90.0) mm Hg ABG HCO3 19.9 L (20.0-26.0) mmol/L ABG O2 Saturation 99.3 H (95.0-99.0) % ABG Base Excess -4.9 L (-2.0-3.0) mmol/L ABG Hemoglobin 9.8 L (12.0-16.0) gm/dl Carbon Dioxide (22-30) mmol/L BUN (7-17) mg/dL Creatinine (0.7-1.2) mg/dL Glucose 130 H (65-100) mg/dL Lactate Dehydrogenase 307 H (91-180) units/L C-Reactive Protein 2.60 H (0.00-1.30) mg/dL Urine Creatinine (0.1-20.0) mg/dL 10/29/19 10/29/19 10/29/19 Range/Units 04:35 04:35 06:00 RBC 3.62 L (3.65-5.03) M/mm3 RDW 17.2 H (13.2-15.2) % Brown % (Auto) 8.8 H (0.0-7.3) % Seg Neutrophils % 74.8 H (40.0-70.0) % D-Dimer (0-234) ng/mlDDU ABG pO2 (80.0-90.0) mm Hg ABG HCO3 (20.0-26.0) mmol/L ABG O2 Saturation (95.0-99.0) % ABG Base Excess (-2.0-3.0) mmol/L ABG Hemoglobin (12.0-16.0) gm/dl Carbon Dioxide 18 L (22-30) mmol/L BUN 41 H (7-17) mg/dL Creatinine 3.2 H (0.7-1.2) mg/dL Glucose (65-100) mg/dL Lactate Dehydrogenase (91-180) units/L C-Reactive Protein (0.00-1.30) mg/dL Urine Creatinine 137.7 H (0.1-20.0) mg/dL - Imaging and Cardiology Chest x-ray: report reviewed, image reviewed (rapid interval improvement) Assessment and Plan Cultures: 10/28/2019 blood culture: No growth 10/28/2019 coronavirus PCR: Negative Procalcitonin 0.11 and 0.63 A/P: 64-year-old female with hypertension, CKD, cardiomyopathy, pulmonary hype rtension, paroxysmal atrial fibrillation on anticoagulation, history of substance abuse, depression, schizoaffective disorder was admitted to the hospital with complaints of chest tightness, cough and shortness of breath: #Bilateral airspace disease on chest x-ray: CXR with rapid interval improvement. No fever, no leukocytosis. COVID-19 PCR is negative. proBNP elevated. Procalcitonin mild elevation could be related to renal dysfunction. Very low suspicion for pneumonia. Suspect CHF. #Acute respiratory failure: On mechanical ventilation #CKD stage III Recs: will d/c abx if cultures remain negative d/c isolation, COVID-19 PCR is negative Aguila Jordan MD, FACP [facility] ([facility] C: [phone] O: [phone] F: [phone]
--- NOTE | 2019-10-29 11:08 | Consultation ---
History of Present Illness - Reason for Consult Consult date: 10/29/19 acute renal failure, chronic renal failure - History of Present Illness The patient is a 64 YO female with history significant for HTN, CKD stage 3, Schizoaffective disorder, Cocaine use, Tobacco use, cardiomyopathy with EF 45%, moderate to severe pulmonary hypertension, Paroxysmal atrial fibrillation (on Eliquis), COPD and GERD who presented to [facility] ED 10/27 with complaints of chest tightness, cough, shortness of breath, wheezing. Unable to obtain any history from patient at this time as she in intubated and on mechanical ventilation. Patient reportedly had the symptoms for approximately 2 days with associated cough. While in the emergency room, patient was noted to have moderate respiratory distress with accessory muscle use, and tachypnea. BiPAP was tried intially but subsequently got intubated. The patient had a cardiac catheterization performed at this hospital a few months ago which was negative for coronary artery disease. On arrival to ED her BP was high but dropped SBP to 90s. Labs significant for Creat 3.2, BUN 41 and bicar 18. Nephrology was consulted for further evaluation and treatment of KARI superimposed on CKD. Past History Past Medical History: atrial fib, heart failure, hypertension, renal failure, other (See HPI.) Past Surgical History: Other (Unable to obtain due to ventilator) Social history: smoking, other (Cocaine abuse) Family history: other (Unable to obtain due to ventilator) Medications and Allergies Allergies Allergy/AdvReac Type Severity Reaction Status Date / Time codeine Allergy Rash Verified 08/05/19 18:06 Sulfa (Sulfonamide Allergy Rash Verified 08/05/19 18:06 Antibiotics) lisinopril AdvReac Unknown Verified 08/05/19 18:06 Home Medications Medication Instructions Recorded Confirmed Last Taken Type traZODone [Desyrel] 50 mg PO QHS 08/09/13 10/29/19 04/05/14 History Budesonide/Formoterol Fumarate 10.2 gm IH Q4H 03/10/19 10/29/19 03/10/19 History [Symbicort 160-4.5 Mcg Inhaler] Chlorpheniramine/Dextromethorp 1 each PO Q6HR 03/10/19 10/29/19 03/10/19 History [Cough-Cold Tablet] allopurinoL [Zyloprim] 100 mg PO QDAY 03/10/19 10/29/19 03/10/19 History methOCARBAMOL 500 mg PO Q6HR PRN 03/27/19 10/29/19 Unknown History AtorvaSTATin [Lipitor] 40 mg PO QHS #30 tablet 04/07/19 10/29/19 Unknown Rx Aspirin EC [Halfprin EC] 81 mg PO DAILY #30 tablet. 07/18/19 10/29/19 Unknown Rx Depakote ER 250 mg PO BID #14 07/18/19 10/29/19 Unknown Rx Fluticasone [Flonase] 100 mcg NS QDAY #1 bottle 07/18/19 10/29/19 Unknown Rx Oxybutynin [Ditropan] 5 mg PO DAILY #7 07/18/19 10/29/19 Unknown Rx Pantoprazole [Protonix TAB] 40 mg PO QDAY #30 07/18/19 10/29/19 Unknown Rx carvediloL [Coreg] 6.25 mg PO DAILY #60 07/18/19 10/29/19 Unknown Rx Aspirin [Aspirin BABY CHEW TAB] 81 mg PO QDAY #30 tab.chew 07/23/19 10/29/19 Un known Rx Acetaminophen [Non-Aspirin Extra 500 mg PO Q6HR PRN #30 tablet 08/05/19 10/29/19 Unknown Rx Strength] Agnieszka Root [Agnieszka] 250 mg PO QID PRN #30 capsule 08/05/19 10/29/19 Unknown Rx Metoclopramide [Reglan] 10 mg PO QID PRN #30 tablet 08/05/19 10/29/19 Unknown Rx traMADoL [Ultram 50 MG tab] 50 mg PO Q6HR PRN #7 tablet 09/27/19 10/29/19 Unknown Rx Active Meds: Active Medications Allopurinol (Zyloprim) 100 mg PO QDAY [facility] Last Admin: 10/29/19 10:10 Dose: 100 mg Documented by: Lipase/Protease/Amylase (Devin Grissom 10,500 Unit) 1 each FEEDTUBE PRN PRN PRN Reason: For Clogged Feeding Tube Arformoterol Tartrate (Brovana Nebu) 15 mcg IH Q12HRT [facility] Last Admin: 10/29/19 07:58 Dose: 15 mcg Documented by: Aspirin (Baby Aspirin) 81 mg PO QDAY [facility] Last Admin: 10/29/19 10:10 Dose: 81 mg Documented by: Atorvastatin Calcium (Lipitor) 40 mg PO QHS [facility] Last Admin: 10/28/19 21:26 Dose: 40 mg Documented by: Budesonide (Pulmicort) 0.5 mg IH Q12HRT [facility] Last Admin: 10/29/19 07:58 Dose: 0.5 mg Documented by: Carvedilol (Coreg) 6.25 mg PO DAILY [facility] Last Admin: 10/29/19 10:14 Dose: 6.25 mg Documented by: Divalproex Sodium (Depakote Dr) 250 mg PO BID [facility] Last Admin: 10/29/19 10:12 Dose: 250 mg Documented by: Enoxaparin Sodium (Enoxaparin) 30 mg SUB-Q QDAY [facility] Last Admin: 10/29/19 10:10 Dose: 30 mg Documented by: Fentanyl (Sublimaze) 50 mcg IV Q10MIN PRN PRN Reason: ANALGESIA Last Admin: 10/28/19 11:15 Dose: 50 mcg Documented by: Hydrophilic Ointment (Vaseline Lip Therapy) 1 applic TP Q2HR PRN PRN Reason: Dry Lips Nitroglycerin/Dextrose (Tridil Drip 50mg/250ml) 50 mg in 250 mls @ 3 mls/hr IV TITR [facility]; Protocol Last Titration: 10/28/19 07:24 Dose: Infused Documented by: Fentanyl Citrate (Fentanyl Drip Premix) 2,000 mcg in 100 mls @ 3.493 mls/hr IV TITR [facility]; Protocol Last Admin: 10/29/19 11:04 Dose: 4 mcg/kg/hr, 13.971 mls/hr Documented by: Midazolam HCl 100 mg/ Sodium (Chloride) 100 mls @ 2 mls/hr IV TITR [facility]; Protocol Last Titration: 10/28/19 11:49 Dose: 1 mg/hr, 1 mls/hr Documented by: Ceftriaxone Sodium (Rocephin/Ns 2 Gm/100 Ml) 2 gm in 100 mls @ 200 mls/hr IV Q24HR [facility]; Protocol Last Admin: 10/29/19 10:08 Dose: 200 mls/hr Documented by: Azithromycin 500 mg/ Sodium (Chloride) 250 mls @ 250 mls/hr IV Q24HR [facility]; Protocol Last Admin: 10/29/19 10:13 Dose: 250 mls/hr Documented by: Midazolam HCl (Versed) 2 mg IV Q10MIN PRN PRN Reason: Sedation Multi-Ingred Cream/Lotion/Oil/Oint (Artificial Tears Ophth Oint) 1 applic OU Q4HR PRN PRN Reason: Dry Eye(s) Oxybutynin Chloride (Ditropan) 5 mg PO DAILY [facility] Last Admin: 10/29/19 10:12 Dose: 5 mg Documented by: Simple Syrup (Simple Syrup) 15 ml FEEDTUBE PRN PRN PRN Reason: Hypoglycemia Simple Syrup (Simple Syrup) 30 ml FEEDTUBE PRN PRN PRN Reason: Hypoglycemia Sodium Bicarbonate (Sodium Bicarbonate) 325 mg FEEDTUBE PRN PRN PRN Reason: For Clogged Feeding Tube Sodium Chloride (Sodium Chloride Flush Syringe 10 Ml) 10 ml IV BID [facility] Last Admin: 10/29/19 10:13 Dose: 10 ml Documented by: Sodium Chloride (Sodium Chloride Flush Syringe 10 Ml) 10 ml IV PRN PRN PRN Reason: LINE FLUSH Review of Systems ROS unobtainable: due to endotracheal tube Exam - Vital Signs Vital signs: Vital Signs Temp Pulse Resp BP Pulse Ox 98.4 F 71 22 165/63 95 10/28/19 03:16 10/28/19 03:16 10/28/19 03:16 10/28/19 03:16 10/28/19 03:16 - General Appearance General appearance: well-developed, well-nourished, appears stated age, intubated, other (on vent, OG tube noted) EENT: ATNC, PERRL, hearing intact Neck: Present: neck supple, trachea midline Respiratory: Clear to Ascultation Heart: regular, S1S2, no murmurs Gastrointestinal: Present: normoactive bowel sounds. Absent: tenderness, distended Integumentary: no rash, warm and dry Neurologic: other (pt is able to move all 4 extremities) Musculoskeletal: Present: other (no edema) Psychiatric: cooperative Results - Lab Results 10/29/19 04:35 10/29/19 04:35 Most recent lab results ABG pH 7.366 pH Units (7.350-7.450) 10/29/19 04:05 ABG pCO2 35.5 mm Hg 10/29/19 04:05 ABG pO2 215.8 mm Hg (80.0-90.0) H 10/29/19 04:05 ABG HCO3 19.9 mmol/L (20.0-26.0) L 10/29/19 04:05 ABG O2 Saturation 99.3 % (95.0-99.0) H 10/29/19 04:05 Calcium 8.4 mg/dL (8.4-10.2) 10/29/19 04:35 Magnesium 3.20 mg/dL (1.7-2.3) H 10/28/19 05:11 Urine Creatinine 137.7 mg/dL (0.1-20.0) H 10/29/19 06:00 Urine Sodium 51 mmol/L 10/29/19 06:00 - Image Kidney/bladder ultrasound: pending Assessment and Plan 1. Acute kidney injury: Likely vasomotor Acute kidney injury superimposed on CKD stage 3 in the setting of hypotension and respiratory failure. UA is bland. Renal US ordered. Creatinine level increasing. Started on IV fluids 9d/w Intensivisit). Monitor renal function. Avoid nephrotoxic agents. Meds dosage based on GFR. 2. FEN: Metabolic acidosis, monitor. Monitor lytes. 3. Acute hypoxic respiratory failure: Multifactorial etiology secondary to bilateral pneumonia, heart failure and pulmonary hypertension. Currently intubated and on vent. Pulmonary following. 4. Bilateral pneumonia.: COVID-19 negative on 10/28/2019. 5. H/o HFpEF: S/p R & L cath 07/20. Appears compensated. 6. H/o schizoaffective disorder with depression. 7. Hypertension: Monitor BP. 8. Substance abuse. 9. Tobacco abuse. 10. H/o Afib: Cards following. S/p ablation in the past.
[2019-10-29] MEDS ORDERED: SODIUM CHLORIDE 0.45% 1000 ML 1,000 ML IV SCH (13:00)
[2019-10-29 18:34] LABS: Amphetamine Screen,Urine PRESUMPTIVE NEGATIVE; Cannabinoid Screen,Urine PRESUMPTIVE NEGATIVE; Methadone Screen,Urine PRESUMPTIVE NEGATIVE; Opiate Screen,Urine PRESUMPTIVE NEGATIVE
[2019-10-29 18:57] LABS: Benzodiazepines Screen,Urine PRESUMPTIVE POSITIVE; Cocaine Screen,Urine PRESUMPTIVE POSITIVE
--- NOTE | 2019-10-29 18:57 | Ultrasound Report ---
ULTRASOUND RENAL INDICATION: Acute renal failure.. COMPARISON: No relevant prior imaging study available. FINDINGS: RIGHT KIDNEY: Size: 8.4 cm. Echogenicity: Normal. Cortical thickness: Normal. Stones: None. Hydronephrosis: None. Cyst or mass: None. LEFT KIDNEY: Size: 8.4 cm. Echogenicity: Normal. Cortical thickness: Normal. Stones: None. Hydronephrosis: None. Cyst or mass: 3 cm left renal cyst. Urinary Bladder: Stauffer in place. Free Fluid: None. Additional Findings: None. IMPRESSION 1. No acute sonographic abnormality of the kidneys. Signer Name: Edu Cordero MD Signed: 10/29/2019 6:52 PM Workstation Name: [id number]
--- NOTE | 2019-10-29 20:18 | Consultation ---
History of Present Illness Consult date: 10/29/19 Requesting physician: FATUMA ROBIN Reason for consult: dyspnea History of present illness: 64-year-old female with hypertension, CKD, cardiomyopathy, pulmonary hypertension, paroxysmal atrial fibrillation on anticoagulation, history of substance abuse, depression, schizoaffective disorder was admitted to the hospital with complaints of chest tightness, cough and shortness of breath. She was noted to have respiratory distress and failed BiPAP in the ER and was subsequently intubated. Chest x-ray was suggestive of patchy bilateral airspace disease. No fevers, chills, hemoptysis. Patient admits to using cocaine of late. Care transferred to us b/c apparently she has seen Dr. Awad at some point. Active Medications Allopurinol (Zyloprim) 100 mg PO QDAY [facility] Last Admin: 10/29/19 10:10 Dose: 100 mg Documented by: Lipase/Protease/Amylase (Devin Grissom 10,500 Unit) 1 each FEEDTUBE PRN PRN PRN Reason: For Clogged Feeding Tube Arformoterol Tartrate (Brovana Nebu) 15 mcg IH Q12HRT [facility] Last Admin: 10/29/19 19:46 Dose: 15 mcg Documented by: Aspirin (Baby Aspirin) 81 mg PO QDAY [facility] Last Admin: 10/29/19 10:10 Dose: 81 mg Documented by: Atorvastatin Calcium (Lipitor) 40 mg PO QHS [facility] Last Admin: 10/28/19 21:26 Dose: 40 mg Documented by: Budesonide (Pulmicort) 0.5 mg IH Q12HRT [facility] Last Admin: 10/29/19 19:46 Dose: 0.5 mg Documented by: Carvedilol (Coreg) 6.25 mg PO DAILY [facility] Last Admin: 10/29/19 10:14 Dose: 6.25 mg Documented by: Divalproex Sodium (Depakote Dr) 250 mg PO BID [facility] Last Admin: 10/29/19 10:12 Dose: 250 mg Documented by: Enoxaparin Sodium (Enoxaparin) 30 mg SUB-Q QDAY [facility] Last Admin: 10/29/19 10:10 Dose: 30 mg Documented by: Fentanyl (Sublimaze) 50 mcg IV Q10MIN PRN PRN Reason: ANALGESIA Last Admin: 10/28/19 11:15 Dose: 50 mcg Documented by: Hydrophilic Ointment (Vaseline Lip Therapy) 1 applic TP Q2HR PRN PRN Reason: Dry Lips Nitroglycerin/Dextrose (Tridil Drip 50mg/250ml) 50 mg in 250 mls @ 3 mls/hr IV TITR [facility]; Protocol Last Titration: 10/28/19 07:24 Dose: Infused Documented by: Fentanyl Citrate (Fentanyl Drip Premix) 2,000 mcg in 100 mls @ 3.493 mls/hr IV TITR [facility]; Protocol Last Admin: 10/29/19 11:04 Dose: 4 mcg/kg/hr, 13.971 mls/hr Documented by: Midazolam HCl 100 mg/ Sodium (Chloride) 100 mls @ 2 mls/hr IV TITR MARCIO; Protocol Last Titration: 10/28/19 11:49 Dose: 1 mg/hr, 1 mls/hr Documented by: Ceftriaxone Sodium (Rocephin/Ns 2 Gm/100 Ml) 2 gm in 100 mls @ 200 mls/hr IV Q24HR [facility]; Protocol Last Infusion: 10/29/19 10:40 Dose: Infused Documented by: Azithromycin 500 mg/ Sodium (Chloride) 250 mls @ 250 mls/hr IV Q24HR [facility]; Protocol Last Infusion: 10/29/19 11:30 Dose: Infused Documented by: Sodium Chloride (Nacl 0.45% 1000 Ml) 1,000 mls @ 75 mls/hr IV DIRECT [facility] Midazolam HCl (Versed) 2 mg IV Q10MIN PRN PRN Reason: Sedation Multi-Ingred Cream/Lotion/Oil/Oint (Artificial Tears Ophth Oint) 1 applic OU Q4HR PRN PRN Reason: Dry Eye(s) Oxybutynin Chloride (Ditropan) 5 mg PO DAILY [facility] Last Admin: 10/29/19 10:12 Dose: 5 mg Documented by: Simple Syrup (Simple Syrup) 15 ml FEEDTUBE PRN PRN PRN Reason: Hypoglycemia Simple Syrup (Simple Syrup) 30 ml FEEDTUBE PRN PRN PRN Reason: Hypoglycemia Sodium Bicarbonate (Sodium Bicarbonate) 325 mg FEEDTUBE PRN PRN PRN Reason: For Clogged Feeding Tube Sodium Chloride (Sodium Chloride Flush Syringe 10 Ml) 10 ml IV BID [facility] Last Admin: 10/29/19 10:13 Dose: 10 ml Documented by: Sodium Chloride (Sodium Chloride Flush Syringe 10 Ml) 10 ml IV PRN PRN PRN Reason: LINE FLUSH Past History Past Medical History: atrial fib, heart failure, hypertension, renal failure, other (See HPI.) Past Surgical History: Other (Unable to obtain due to ventilator) Social history: smoking, other (Cocaine abuse). denies: alcohol abuse, prescription drug abuse Family history: other (Unable to obtain due to ventilator) Medications and Allergies Allergies Allergy/AdvReac Type Severity Reaction Status Date / Time codeine Allergy Rash Verified 08/05/19 18:06 Sulfa (Sulfonamide Allergy Rash Verified 08/05/19 18:06 Antibiotics) lisinopril AdvReac Unknown Verified 08/05/19 18:06 Home Medications Medication Instructions Recorded Confirmed Last Taken Type traZODone [Desyrel] 50 mg PO QHS 08/09/13 10/29/19 04/05/14 History Budesonide/Formoterol Fumarate 10.2 gm IH Q4H 03/10/19 10/29/19 03/10/19 History [Symbicort 160-4.5 Mcg Inhaler] Chlorpheniramine/Dextromethorp 1 each PO Q6HR 03/10/19 10/29/19 03/10/19 History [Cough-Cold Tablet] allopurinoL [Zyloprim] 100 mg PO QDAY 03/10/19 10/29/19 03/10/19 History methOCARBAMOL 500 mg PO Q6HR PRN 03/27/19 10/29/19 Unknown History AtorvaSTATin [Lipitor] 40 mg PO QHS #30 tablet 04/07/19 10/29/19 Unknown Rx Aspirin EC [Halfprin EC] 81 mg PO DAILY #30 tablet. 07/18/19 10/29/19 Unknown Rx Depakote ER 250 mg PO BID #14 07/18/19 10/29/19 Unknown Rx Fluticasone [Flonase] 100 mcg NS QDAY #1 bottle 07/18/19 10/29/19 Unknown Rx Oxybutynin [Ditropan] 5 mg PO DAILY #7 07/18/19 10/29/19 Unknown Rx Pantoprazole [Protonix TAB] 40 mg PO QDAY #30 07/18/19 10/29/19 Unknown Rx carvediloL [Coreg] 6.25 mg PO DAILY #60 07/18/19 10/29/19 Unknown Rx Aspirin [Aspirin BABY CHEW TAB] 81 mg PO QDAY #30 tab.chew 07/23/19 10/29/19 Unknown Rx Acetaminophen [Non-Aspirin Extra 500 mg PO Q6HR PRN #30 tablet 08/05/19 10/29/19 Unknown Rx Strength] Agnieszka Root [Agnieszka] 250 mg PO QID PRN #30 capsule 08/05/19 10/29/19 Unknown Rx Metoclopramide [Reglan] 10 mg PO QID PRN #30 tablet 08/05/19 10/29/19 Unknown Rx traMADoL [Ultram 50 MG tab] 50 mg PO Q6HR PRN #7 tablet 09/27/19 10/29/19 Unknown Rx Active Meds: Active Medications Allopurinol (Zyloprim) 100 mg PO QDAY [facility] Last Admin: 10/29/19 10:10 Dose: 100 mg Documented by: Lipase/Protease/Amylase (Devin Grissom 10,500 Unit) 1 each FEEDTUBE PRN PRN PRN Reason: For Clogged Feeding Tube Arformoterol Tartrate (Brovana Nebu) 15 mcg IH Q12HRT [facility] Last Admin: 10/29/19 19:46 Dose: 15 mcg Documented by: Aspirin (Baby Aspirin) 81 mg PO QDAY [facility] Last Admin: 10/29/19 10:10 Dose: 81 mg Documented by: Atorvastatin Calcium (Lipitor) 40 mg PO QHS [facility] Last Admin: 10/28/19 21:26 Dose: 40 mg Documented by: Budesonide (Pulmicort) 0.5 mg IH Q12HRT [facility] Last Admin: 10/29/19 19:46 Dose: 0.5 mg Documented by: Carvedilol (Coreg) 6.25 mg PO DAILY [facility] Last Admin: 10/29/19 10:14 Dose: 6.25 mg Documented by: Divalproex Sodium (Depakote Dr) 250 mg PO BID [facility] Last Admin: 10/29/19 10:12 Dose: 250 mg Documented by: Enoxaparin Sodium (Enoxaparin) 30 mg SUB-Q QDAY [facility] Last Admin: 10/29/19 10:10 Dose: 30 mg Documented by: Fentanyl (Sublimaze) 50 mcg IV Q10MIN PRN PRN Reason: ANALGESIA Last Admin: 10/28/19 11:15 Dose: 50 mcg Documented by: Hydrophilic Ointment (Vaseline Lip Therapy) 1 applic TP Q2HR PRN PRN Reason: Dry Lips Nitroglycerin/Dextrose (Tridil Drip 50mg/250ml) 50 mg in 250 mls @ 3 mls/hr IV TITR MARCIO; Protocol Last Titration: 10/28/19 07:24 Dose: Infused Documented by: Fentanyl Citrate (Fentanyl Drip Premix) 2,000 mcg in 100 mls @ 3.493 mls/hr IV TITR [facility]; Protocol Last Admin: 10/29/19 11:04 Dose: 4 mcg/kg/hr, 13.971 mls/hr Documented by: Midazolam HCl 100 mg/ Sodium (Chloride) 100 mls @ 2 mls/hr IV TITR [facility]; Protocol Last Titration: 10/28/19 11:49 Dose: 1 mg/hr, 1 mls/hr Documented by: Ceftriaxone Sodium (Rocephin/Ns 2 Gm/100 Ml) 2 gm in 100 mls @ 200 mls/hr IV Q24HR [facility]; Protocol Last Infusion: 10/29/19 10:40 Dose: Infused Documented by: Azithromycin 500 mg/ Sodium (Chloride) 250 mls @ 250 mls/hr IV Q24HR [facility]; Protocol Last Infusion: 10/29/19 11:30 Dose: Infused Documented by: Sodium Chloride (Nacl 0.45% 1000 Ml) 1,000 mls @ 75 mls/hr IV DIRECT [facility] Midazolam HCl (Versed) 2 mg IV Q10MIN PRN PRN Reason: Sedation Multi-Ingred Cream/Lotion/Oil/Oint (Artificial Tears Ophth Oint) 1 applic OU Q4HR PRN PRN Reason: Dry Eye(s) Oxybutynin Chloride (Ditropan) 5 mg PO DAILY [facility] Last Admin: 10/29/19 10:12 Dose: 5 mg Documented by: Simple Syrup (Simple Syrup) 15 ml FEEDTUBE PRN PRN PRN Reason: Hypoglycemia Simple Syrup (Simple Syrup) 30 ml FEEDTUBE PRN PRN PRN Reason: Hypoglycemia Sodium Bicarbonate (Sodium Bicarbonate) 325 mg FEEDTUBE PRN PRN PRN Reason: For Clogged Feeding Tube Sodium Chloride (Sodium Chloride Flush Syringe 10 Ml) 10 ml IV BID [facility] Last Admin: 05/31/20 10:13 Dose: 10 ml Documented by: Sodium Chloride (Sodium Chloride Flush Syringe 10 Ml) 10 ml IV PRN PRN PRN Reason: LINE FLUSH Review of Systems ROS unobtainable: due to endotracheal tube Physical Examination Vital signs: Vital Signs Temp Pulse Resp BP Pulse Ox 98.4 F 71 22 165/63 95 10/28/19 03:16 10/28/19 03:16 10/28/19 03:16 10/28/19 03:16 10/28/19 03:16 Vital Signs - 24 hr 10/28/19 10/28/19 10/28/19 20:30 20:40 20:50 Temperature Pulse Rate 63 56 L 61 Pulse Rate [ Bilateral] Pulse Rate [ From Monitor] Respiratory 19 17 20 Rate Respiratory Rate [Bilateral ] Blood Pressure 145/53 160/58 145/53 O2 Sat by Pulse 100 100 100 Oximetry 10/28/19 10/28/19 10/28/19 21:00 21:10 21:20 Temperature Pulse Rate 57 L 57 L 58 L Pulse Rate [ Bilateral] Pulse Rate [ From Monitor] Respiratory 20 17 20 Rate Respiratory Rate [Bilateral ] Blood Pressure 145/53 150/58 150/58 O2 Sat by Pulse 100 99 100 Oximetry 10/28/19 10/28/19 10/28/19 21:30 21:40 21:50 Temperature Pulse Rate 61 62 72 Pulse Rate [ Bilateral] Pulse Rate [ From Monitor] Respiratory 17 20 15 Rate Respiratory Rate [Bilateral ] Blood Pressure 150/58 158/62 150/58 O2 Sat by Pulse 100 100 99 Oximetry 10/28/19 10/28/19 10/28/19 22:00 22:10 22:20 Temperature Pulse Rate 64 61 61 Pulse Rate [ Bilateral] Pulse Rate [ From Monitor] Respiratory 18 21 19 Rate Respiratory Rate [Bilateral ] Blood Pressure 150/58 152/58 152/58 O2 Sat by Pulse 99 99 99 Oximetry 10/28/19 10/28/19 10/28/19 22:30 22:40 22:50 Temperature Pulse Rate 61 60 57 L Pulse Rate [ Bilateral] Pulse Rate [ From Monitor] Respiratory 20 19 17 Rate Respiratory Rate [Bilateral ] Blood Pressure 152/58 153/64 153/64 O2 Sat by Pulse 99 100 99 Oximetry 10/28/19 10/28/19 10/28/19 23:00 23:02 23:30 Temperature Pulse Rate 62 63 58 L Pulse Rate [ Bilateral] Pulse Rate [ From Monitor] Respiratory 11 L 17 20 Rate Respiratory Rate [Bilateral ] Blood Pressure 153/64 148/62 148/62 O2 Sat by Pulse 100 99 99 Oximetry 10/28/19 10/28/19 10/29/19 23:35 23:55 00:00 Temperature 98.7 F Pulse Rate 55 L 57 L Pulse Rate [ Bilateral] Pulse Rate [ From Monitor] Respiratory 17 Rate Respiratory Rate [Bilateral ] Blood Pressure 130/49 130/49 O2 Sat by Pulse 99 99 Oximetry 10/29/19 10/29/19 10/29/19 00:30 01:00 01:30 Temperature Pulse Rate 59 L 57 L 60 Pulse Rate [ Bilateral] Pulse Rate [ From Monitor] Respiratory 13 13 19 Rate Respiratory Rate [Bilateral ] Blood Pressure 127/48 132/49 122/43 O2 Sat by Pulse 100 99 100 Oximetry 10/29/19 10/29/19 10/29/19 02:00 02:30 03:00 Temperature Pulse Rate 56 L 56 L 56 L Pulse Rate [ Bilateral] Pulse Rate [ From Monitor] Respiratory 17 18 16 Rate Respiratory Rate [Bilateral ] Blood Pressure 122/43 116/43 126/47 O2 Sat by Pulse 100 100 100 Oximetry 10/29/19 10/29/19 10/29/19 03:30 04:00 04:02 Temperature 98.9 F Pulse Rate 59 L 66 62 Pulse Rate [ Bilateral] Pulse Rate [ From Monitor] Respiratory 17 15 Rate Respiratory Rate [Bilateral ] Blood Pressure 129/50 137/54 127/47 O2 Sat by Pulse 100 100 100 Oximetry 10/29/19 10/29/19 10/29/19 04:27 04:30 05:00 Temperature Pulse Rate 59 L 57 L 59 L Pulse Rate [ Bilateral] Pulse Rate [ From Monitor] Respiratory 16 20 Rate Respiratory Rate [Bilateral ] Blood Pressure 134/53 134/53 O2 Sat by Pulse 95 100 Oximetry 10/29/19 10/29/19 10/29/19 05:30 06:00 06:30 Temperature Pulse Rate 55 L 57 L 60 Pulse Rate [ Bilateral] Pulse Rate [ From Monitor] Respiratory 20 20 15 Rate Respiratory Rate [Bilateral ] Blood Pressure 129/45 124/41 116/35 O2 Sat by Pulse 98 97 97 Oximetry 10/29/19 10/29/19 10/29/19 07:00 07:30 07:54 Temperature 97.5 F L Pulse Rate 55 L 57 L Pulse Rate [ Bilateral] Pulse Rate [ From Monitor] Respiratory 18 16 Rate Respiratory Rate [Bilateral ] Blood Pressure 125/36 121/42 O2 Sat by Pulse 99 98 Oximetry 10/29/19 10/29/19 10/29/19 07:58 08:00 08:08 Temperature Pulse Rate 58 L 57 L Pulse Rate [ 62 Bilateral] Pulse Rate [ 58 L From Monitor] Respiratory 20 Rate Respiratory 20 Rate [Bilateral ] Blood Pressure 130/40 124/41 O2 Sat by Pulse 98 97 Oximetry 10/29/19 10/29/19 10/29/19 08:30 09:00 09:30 Temperature Pulse Rate 57 L 57 L 59 L Pulse Rate [ Bilateral] Pulse Rate [ From Monitor] Respiratory 20 20 14 Rate Respiratory Rate [Bilateral ] Blood Pressure 129/44 122/42 131/46 O2 Sat by Pulse 98 98 100 Oximetry 10/29/19 10/29/19 10/29/19 10:00 10:14 10:30 Temperature Pulse Rate 59 L 65 60 Pulse Rate [ Bilateral] Pulse Rate [ From Monitor] Respiratory 20 17 Rate Respiratory Rate [Bilateral ] Blood Pressure 131/46 125/45 125/45 O2 Sat by Pulse 99 100 Oximetry 10/29/19 10/29/19 10/29/19 11:00 11:30 11:31 Temperature Pulse Rate 67 62 65 Pulse Rate [ Bilateral] Pulse Rate [ From Monitor] Respiratory 16 15 Rate Respiratory Rate [Bilateral ] Blood Pressure 125/45 143/56 125/45 O2 Sat by Pulse 97 Oximetry 10/29/19 10/29/19 10/29/19 12:00 12:30 13:00 Temperature 97.4 F L Pulse Rate 63 61 55 L Pulse Rate [ Bilateral] Pulse Rate [ 63 From Monitor] Respiratory 20 9 L 17 Rate Respiratory Rate [Bilateral ] Blood Pressure 124/46 119/55 119/55 O2 Sat by Pulse 100 100 Oximetry 10/29/19 10/29/19 10/29/19 13:30 14:00 14:30 Temperature Pulse Rate 58 L 55 L 56 L Pulse Rate [ Bilateral] Pulse Rate [ From Monitor] Respiratory 15 19 20 Rate Respiratory Rate [Bilateral ] Blood Pressure 123/51 128/46 134/43 O2 Sat by Pulse 100 100 100 Oximetry 10/29/19 10/29/19 10/29/19 15:00 15:30 16:00 Temperature 97.9 F Pulse Rate 57 L 59 L 57 L Pulse Rate [ Bilateral] Pulse Rate [ 57 L From Monitor] Respiratory 14 20 19 Rate Respiratory Rate [Bilateral ] Blood Pressure 128/46 134/43 128/46 O2 Sat by Pulse 100 100 100 Oximetry 10/29/19 10/29/19 10/29/19 16:30 16:53 17:01 Temperature Pulse Rate 73 57 L 62 Pulse Rate [ Bilateral] Pulse Rate [ From Monitor] Respiratory 25 H 19 Rate Respiratory Rate [Bilateral ] Blood Pressure 117/48 128/46 119/50 O2 Sat by Pulse 100 100 100 Oximetry 10/29/19 10/29/19 10/29/19 17:31 18:00 18:31 Temperature Pulse Rate 60 62 Pulse Rate [ Bilateral] Pulse Rate [ From Monitor] Respiratory 20 20 Rate Respiratory Rate [Bilateral ] Blood Pressure 138/47 144/46 129/47 O2 Sat by Pulse 98 97 99 Oximetry 10/29/19 19:47 Temperature Pulse Rate 63 Pulse Rate [ 64 Bilateral] Pulse Rate [ From Monitor] Respiratory Rate Respiratory 19 Rate [Bilateral ] Blood Pressure 128/45 O2 Sat by Pulse 98 Oximetry General appearance: other (critically ill on vent, awake, alert) Eyes: non-icteric ENT: oropharynx moist Neck: supple Effort: normal Ascultation: Bilateral: other (coarse BS bilaterally) Cardiovascular: regular rate and rhythm (no mrg) Gastrointestinal: normoactive bowel sounds, soft, non-tender, non-distended Integumentary: normal normal mental status, non-focal exam, pupils equal and round, CN II-XII normal mood appropriate, affect normal Results - Laboratory Findings CBC and BMP: 10/29/19 04:35 10/29/19 04:35 ABG ABG pH 7.366 pH Units (7.350-7.450) 10/29/19 04:05 ABG pCO2 35.5 mm Hg 10/29/19 04:05 ABG pO2 215.8 mm Hg (80.0-90.0) H 10/29/19 04:05 ABG O2 Saturation 99.3 % (95.0-99.0) H 10/29/19 04:05 PT/INR, D-dimer PT 14.7 Sec. (12.2-14.9) 10/28/19 03:56 INR 1.14 (0.87-1.13) H 10/28/19 03:56 D-Dimer 966.63 ng/mlDDU (0-234) H 10/28/19 12:41 Abnormal lab findings: Abnormal Labs 10/28/19 10/28/19 10/28/19 03:56 03:56 04:19 RBC RDW 18.2 H Mcintosh % (Auto) Seg Neutrophils % Eosinophils % (Manual) 5.0 H INR 1.14 H D-Dimer 386.89 H ABG pH ABG pO2 135.7 H ABG HCO3 ABG O2 Saturation ABG Base Excess -4.1 L ABG Hemoglobin 10.4 L Oxyhemoglobin Carbon Dioxide BUN Creatinine Glucose Lactic Acid Magnesium AST ALT Alkaline Phosphatase Lactate Dehydrogenase C-Reactive Protein NT-Pro-B Natriuret Pep Albumin Urine Creatinine 10/28/19 10/28/19 10/28/19 05:11 05:11 06:20 RBC RDW Mcintosh % (Auto) Seg Neutrophils % Eosinophils % (Manual) INR D-Dimer ABG pH 7.210 L ABG pO2 96.5 H ABG HCO3 17.8 L ABG O2 Saturation ABG Base Excess -9.6 L ABG Hemoglobin 9.4 L Oxyhemoglobin Carbon Dioxide 16 L BUN 27 H Creatinine 2.7 H Glucose 229 H Lactic Acid 7.20 H* Magnesium 3.20 H AST 169 H ALT 83 H Alkaline Phosphatase 210 H Lactate Dehydrogenase 353 H C-Reactive Protein 1.80 H NT-Pro-B Natriuret Pep 24637 H Albumin 3.7 L Urine Creatinine 10/28/19 10/28/19 10/28/19 09:15 12:41 12:41 RBC RDW Mcintosh % (Auto) Seg Neutrophils % Eosinophils % (Manual) INR D-Dimer 966.63 H ABG pH 7.340 L ABG pO2 ABG HCO3 19.8 L ABG O2 Saturation ABG Base Excess -5.5 L ABG Hemoglobin 10.4 L Oxyhemoglobin 94.4 L Carbon Dioxide BUN Creatinine Glucose 130 H Lactic Acid Magnesium AST ALT Alkaline Phosphatase Lactate Dehydrogenase 307 H C-Reactive Protein 2.60 H NT-Pro-B Natriuret Pep Albumin Urine Creatinine 10/29/19 10/29/19 10/29/19 04:05 04:35 04:35 RBC 3.62 L RDW 17.2 H Mcintosh % (Auto) 8.8 H Seg Neutrophils % 74.8 H Eosinophils % (Manual) INR D-Dimer ABG pH ABG pO2 215.8 H ABG HCO3 19.9 L ABG O2 Saturation 99.3 H ABG Base Excess -4.9 L ABG Hemoglobin 9.8 L Oxyhemoglobin Carbon Dioxide 18 L BUN 41 H Creatinine 3.2 H Glucose Lactic Acid Magnesium AST ALT Alkaline Phosphatase Lactate Dehydrogenase C-Reactive Protein NT-Pro-B Natriuret Pep Albumin Urine Creatinine 10/29/19 06:00 RBC RDW Mcintosh % (Auto) Seg Neutrophils % Eosinophils % (Manual) INR D-Dimer ABG pH ABG pO2 ABG HCO3 ABG O2 Saturation ABG Base Excess ABG Hemoglobin Oxyhemoglobin Carbon Dioxide BUN Creatinine Glucose Lactic Acid Magnesium AST ALT Alkaline Phosphatase Lactate Dehydrogenase C-Reactive Protein NT-Pro-B Natriuret Pep Albumin Urine Creatinine 137.7 H - Diagnostic Findings Chest x-ray: report reviewed, image reviewed (bilateral infiltrates improved quickly) Assessment and Plan Imp: 1. NICMP 2. A/C systolic CHF with pulm edema 3. Cocaine abuse 4. KARI on CKD 5. Acute respiratory failure, hypoxia 6. Pulm HTN Rec: 1. Caution w/ IVFs; CXR improved rapidly c/w pulm edema and not pneumonia; believe ongoing cocaine abuse is the primary culprit 2. PSV trials and hopeful extubation in AM 3. ABX per ID; f/u cultures 4. DVT/GI PPx 5. Further plans pending clinical course CCt 31 minutes
--- NOTE | 2019-10-30 03:22 | XRay Report ---
Chest single view INDICATION: Dyspnea IMPRESSION: Lines and tubes project in good position. Cardiomegaly. Lungs are grossly clear without p neumothorax aside from faint right lower lobe airspace density.. Signer Name: Titus Kaur MD Signed: 10/30/2019 3:18 AM Workstation Name: [id number]
[2019-10-30] MEDS: fentaNYL DRIP Premix 2,000 MCG/100 ML BAG IV SCH (03:24)
[2019-10-30 04:37] LABS: ABG Base Excess -2.8 mmol/L (-2.0-3.0); ABG HCO3 21.2 mmol/L (20.0-26.0); ABG Methemoglobin 0.4 % (0.0-1.5); ABG Oxygen Saturation 96.9 % (95.0-99.0); ABG PCO2 33.9 mm Hg; ABG PH 7.414 pH Units (7.350-7.450)
[2019-10-30 06:24] LABS: Basophils % (Auto) 0.5 % (0.0-1.8); Eosinophils # (Auto) 0.1 K/mm3 (0.0-0.4); Eosinophils % (Auto) 0.8 % (0.0-4.3); Hemoglobin 9.1 gm/dl (10.1-14.3); Lymphocytes # (Auto) 1.9 K/mm3 (1.2-5.4); Mean Corpuscular HGB Conc 33 % (30-34); Mean Corpuscular Volume 86 fl (79-97); Monocytes # (Auto) 0.7 K/mm3 (0.0-0.8); Monocytes % (Auto) 9.2 % (0.0-7.3); Platelet Count 255 K/mm3 (140-440); Red Blood Count 3.25 M/mm3 (3.65-5.03); Red Cell Distribution Width 17.2 % (13.2-15.2)
[2019-10-30 06:46] LABS: BUN/Creatinine Ratio 14; Blood Urea Nitrogen 43 mg/dL (7-17); Calcium 7.9 mg/dL (8.4-10.2)
[2019-10-30] MEDS: BUDESONIDE 0.5 MG/2 ML NEBU IH SCH ×2 (08:01→21:03)
[2019-10-30] MEDS: ARFORMOTEROL 15 MCG/2 ML NEBU IH SCH ×2 (08:01→21:02)
--- NOTE | 2019-10-30 08:45 | Progress Note ---
Assessment and Plan 64 y/o female with known cardiomyopathy, admitted with acute respiratory failure secondary to pulmonary edema and cocaine abuse. 1. Stop all sedation 2. Extubate once awake 3. Follow up renal recs 4. Monitor volume status 5. Will discuss with primary and pharm, but can likely stop abx therapy CCt 31 minutes. Subjective Date of service: 10/30/19 Interval history: No acute events. Called Nurse to ask to turn of all sedation. ABG was good this am on minimal vent settings. Objective Vital Signs - 12hr 10/29/19 10/29/19 10/29/19 21:00 21:30 22:00 Temperature Pulse Rate 61 59 L 59 L Pulse Rate [ Bilateral] Respiratory 20 20 20 Rate Respiratory Rate [Bilateral ] Blood Pressure 118/39 129/47 137/48 O2 Sat by Pulse 98 99 100 Oximetry 10/29/19 10/29/19 10/29/19 22:30 23:00 23:19 Temperature Pulse Rate 58 L 59 L 60 Pulse Rate [ Bilateral] Respiratory 20 20 20 Rate Respiratory Rate [Bilateral ] Blood Pressure 124/52 131/44 131/44 O2 Sat by Pulse 98 98 99 Oximetry 10/29/19 10/30/19 10/30/19 23:30 00:00 00:03 Temperature 98.3 F Pulse Rate 62 61 62 Pulse Rate [ Bilateral] Respiratory 17 20 Rate Respiratory Rate [Bilateral ] Blood Pressure 139/37 136/50 136/50 O2 Sat by Pulse 100 93 99 Oximetry 10/30/19 10/30/19 10/30/19 00:30 01:00 01:01 Temperature Pulse Rate 72 58 L 68 Pulse Rate [ Bilateral] Respiratory 20 13 Rate Respiratory Rate [Bilateral ] Blood Pressure 153/61 143/51 O2 Sat by Pulse 98 95 Oximetry 10/30/19 10/30/19 10/30/19 01:30 02:00 02:30 Temperature Pulse Rate 66 67 65 Pulse Rate [ Bilateral] Respiratory 20 21 20 Rate Respiratory Rate [Bilateral ] Blood Pressure 138/48 130/46 123/48 O2 Sat by Pulse 90 92 93 Oximetry 10/30/19 10/30/19 10/30/19 03:00 03:30 04:00 Temperature 99.2 F Pulse Rate 66 65 61 Pulse Rate [ Bilateral] Respiratory 19 20 20 Rate Respiratory Rate [Bilateral ] Blood Pressure 124/45 124/48 134/50 O2 Sat by Pulse 95 94 95 Oximetry 10/30/19 10/30/19 10/30/19 04:15 04:30 05:01 Temperature Pulse Rate 63 63 63 Pulse Rate [ Bilateral] Respiratory 20 20 Rate Respiratory Rate [Bilateral ] Blood Pressure 134/50 123/46 123/44 O2 Sat by Pulse 96 93 94 Oximetry 10/30/19 10/30/19 10/30/19 05:30 06:00 06:30 Temperature Pulse Rate 63 65 67 Pulse Rate [ Bilateral] Respiratory 19 20 17 Rate Respiratory Rate [Bilateral ] Blood Pressure 134/52 132/49 128/41 O2 Sat by Pulse 95 95 94 Oximetry 10/30/19 10/30/19 08:00 08:01 Temperature 99.1 F Pulse Rate 69 Pulse Rate [ 68 Bilateral] Respiratory Rate Respiratory 20 Rate [Bilateral ] Blood Pressure 110/41 O2 Sat by Pulse 95 Oximetry Constitutional: other (critically ill on vent, awake, alert) Eyes: non-icteric ENT: oropharynx moist Neck: supple Effort: normal Ascultation: Bilateral: other (coarse BS bilaterally) Cardiovascular: regular rate and rhythm (no mrg) Gastrointestinal: normoactive bowel sounds, soft, non-tender, non-distended Integumentary: normal Neurologic: normal mental status, non-focal exam, pupils equal and round, CN II- XII normal Psychiatric: mood appropriate, affect normal CBC and BMP: 10/30/19 04:55 10/30/19 04:55 ABG, PT/INR, D-dimer: ABG ABG pH 7.414 pH Units (7.350-7.450) 10/30/19 04:15 ABG pCO2 33.9 mm Hg 10/30/19 04:15 ABG pO2 78.0 mm Hg (80.0-90.0) L 10/30/19 04:15 ABG O2 Saturation 96.9 % (95.0-99.0) 10/30/19 04:15 PT/INR, D-dimer PT 14.7 Sec. (12.2-14.9) 10/28/19 03:56 INR 1.14 (0.87-1.13) H 10/28/19 03:56 D-Dimer 966.63 ng/mlDDU (0-234) H 10/28/19 12:41 Abnormal lab findings: Abnormal Labs 10/28/19 10/28/19 10/28/19 03:56 03:56 04:19 RBC Hgb Hct RDW 18.2 H [place] % (Auto) Seg Neutrophils % Eosinophils % (Manual) 5.0 H INR 1.14 H D-Dimer 386.89 H ABG pH ABG pO2 135.7 H ABG HCO3 ABG O2 Saturation ABG Base Excess -4.1 L ABG Hemoglobin 10.4 L Oxyhemoglobin Carbon Dioxide BUN Creatinine Glucose Lactic Acid Calcium Magnesium AST ALT Alkaline Phosphatase Lactate Dehydrogenase C-Reactive Protein NT-Pro-B Natriuret Pep Albumin Urine Creatinine 10/28/19 10/28/19 10/28/19 05:11 05:11 06:20 RBC Hgb Hct RDW [place] % (Auto) Seg Neutrophils % Eosinophils % (Manual) INR D-Dimer ABG pH 7.210 L ABG pO2 96.5 H ABG HCO3 17.8 L ABG O2 Saturation ABG Base Excess -9.6 L ABG Hemoglobin 9.4 L Oxyhemoglobin Carbon Dioxide 16 L BUN 27 H Creatinine 2.7 H Glucose 229 H Lactic Acid 7.20 H* Calcium Magnesium 3.20 H AST 169 H ALT 83 H Alkaline Phosphatase 210 H Lactate Dehydrogenase 353 H C-Reactive Protein 1.80 H NT-Pro-B Natriuret Pep 23886 H Albumin 3.7 L Urine Creatinine 10/28/19 10/28/19 10/28/19 09:15 12:41 12:41 RBC Hgb Hct RDW [place] % (Auto) Seg Neutrophils % Eosinophils % (Manual) INR D-Dimer 966.63 H ABG pH 7.340 L ABG pO2 ABG HCO3 19.8 L ABG O2 Saturation ABG Base Excess -5.5 L ABG Hemoglobin 10.4 L Oxyhemoglobin 94.4 L Carbon Dioxide BUN Creatinine Glucose 130 H Lactic Acid Calcium Magnesium AST ALT Alkaline Phosphatase Lactate Dehydrogenase 307 H C-Reactive Protein 2.60 H NT-Pro-B Natriuret Pep Albumin Urine Creatinine 10/29/19 10/29/19 10/29/19 04:05 04:35 04:35 RBC 3.62 L Hgb Hct RDW 17.2 H [place] % (Auto) 8.8 H Seg Neutrophils % 74.8 H Eosinophils % (Manual) INR D-Dimer ABG pH ABG pO2 215.8 H ABG HCO3 19.9 L ABG O2 Saturation 99.3 H ABG Base Excess -4.9 L ABG Hemoglobin 9.8 L Oxyhemoglobin Carbon Dioxide 18 L BUN 41 H Creatinine 3.2 H Glucose Lactic Acid Calcium Magnesium AST ALT Alkaline Phosphatase Lactate Dehydrogenase C-Reactive Protein NT-Pro-B Natriuret Pep Albumin Urine Creatinine 10/29/19 10/30/19 10/30/19 06:00 04:15 04:55 RBC 3.25 L Hgb 9.1 L Hct 28.0 L RDW 17.2 H [place] % (Auto) 9.2 H Seg Neutrophils % Eosinophils % (Manual) INR D-Dimer ABG pH ABG pO2 78.0 L ABG HCO3 ABG O2 Saturation ABG Base Excess -2.8 L ABG Hemoglobin 10.8 L Oxyhemoglobin 94.7 L Carbon Dioxide BUN Creatinine Glucose Lactic Acid Calcium Magnesium AST ALT Alkaline Phosphatase Lactate Dehydrogenase C-Reactive Protein NT-Pro-B Natriuret Pep Albumin Urine Creatinine 137.7 H 10/30/19 04:55 RBC Hgb Hct RDW [place] % (Auto) Seg Neutrophils % Eosinophils % (Manual) INR D-Dimer ABG pH ABG pO2 ABG HCO3 ABG O2 Saturation ABG Base Excess ABG Hemoglobin Oxyhemoglobin Carbon Dioxide 20 L BUN 43 H Creatinine 3.0 H Glucose 107 H Lactic Acid Calcium 7.9 L Magnesium AST ALT Alkaline Phosphatase Lactate Dehydrogenase C-Reactive Protein NT-Pro-B Natriuret Pep Albumin Urine Creatinine
--- NOTE | 2019-10-30 09:23 | Progress Note ---
Assessment and Plan Assessment and plan: Acute hypoxemic respiratory failure. Etiology is multifactorial secondary to bilateral pneumonia, heart failure and pulmonary hypertension. Bilateral pneumonia. COVID-19 negative on 10/28/2019. Sepsis. Patient meets criteria given the tachycardia, tachypnea and diagnosis of pneumonia. Patient also had elevated lactic acid on admission greater than 7. IV antibiotics and ID consultation. Acute systolic heart failure. Echocardiogram completed 02/2019 revealed normal EF 60% with mild dilatation of the left atrium, and mild calcific aortic stenosis R/LHC 07/2019 revealed moderate severe pulmonary hypertension, PASP 60. No significant aortic stenosis, normal coronary arteries and LVEF of 45%. Paroxysmal atrial fibrillation. Cardiology following Chronic kidney disease III. Nephrology consulted Hypertension. Resume antihypertensive medications as needed. Schizoaffective disorder with depression. 10/29/2019. Patient currently with AC/PRVC mode ventilation with rate 20, tidal volume 450, FiO2 28% and PEEP of 6. Continue SBT per pulmonary. Continue bronchodilators/nebulizers. Continue IV antibiotics. Patient currently with Versed for sedation. Continue diuresis per cardiology/nephrology recommendations. Echocardiogram pending. 10/30/2019. Patient with Versed and fentanyl. Wean sedation. Patient currently on mechanical ventilation AC/PRVC mode ventilation with rate 20, tidal volume 450, FiO2 28% and PEEP of 6 but plans to extubate today. I discussed the case with pulmonary. Consider transfer to the floor after extubation. Creatinine at 3.0 today. The high probability of a clinically significant, sudden or life threatening deterioration of the [cardiac and respiratory] system(s) required my full and direct attention, intervention and personal management. The aggregate critical care time was [32] minutes. This time is in addition to time spent performing reported procedures but includes the following: [x] Data Review and interpretation [x] Patient assessment and monitoring of vital signs [x] Documentation [x] Medication orders and management History Interval history: No new issues overnight. Patient currently on mechanical ventilation. Hospitalist Physical - Constitutional Vitals: Temp Pulse Resp BP Pulse Ox 99.1 F 62 20 126/48 98 10/30/19 08:00 10/30/19 08:30 10/30/19 08:30 10/30/19 08:30 10/30/19 08:30 General appearance: Present: no acute distress, other (on vent) - EENT Eyes: Present: PERRL, EOM intact ENT: hearing intact, clear oral mucosa, dentition normal - Neck Neck: Present: supple, normal ROM - Respiratory Respiratory effort: normal Respiratory: bilateral: CTA - Cardiovascular Rhythm: regular Heart Sounds: Present: S1 & S2. Absent: gallop, rub - Extremities Extremities: no ischemia, No edema, Full ROM - Abdominal General gastrointestinal: soft, non-tender, non-distended, normal bowel sounds - Integumentary Integumentary: Present: clear, warm, dry - Neurologic Neurologic: CNII-XII intact, moves all extremities HEART Score - HEART Score Troponin: Troponin T < 0.010 ng/mL (0.00-0.029) 10/28/19 03:56 Results - Labs CBC & Chem 7: 10/30/19 04:55 10/30/19 04:55 Labs: Laboratory Last Values WBC 7.8 K/mm3 (4.5-11.0) 10/30/19 04:55 RBC 3.25 M/mm3 (3.65-5.03) L 10/30/19 04:55 Hgb 9.1 gm/dl (10.1-14.3) L 10/30/19 04:55 Hct 28.0 % (30.3-42.9) L 10/30/19 04:55 MCV 86 fl (79-97) 10/30/19 04:55 MCH 28 pg (28-32) 10/30/19 04:55 MCHC 33 % (30-34) 10/30/19 04:55 RDW 17.2 % (13.2-15.2) H 10/30/19 04:55 Plt Count 255 K/mm3 (140-440) 10/30/19 04:55 Lymph % (Auto) 25.0 % (13.4-35.0) 10/30/19 04:55 [place] % (Auto) 9.2 % (0.0-7.3) H 10/30/19 04:55 Eos % (Auto) 0.8 % (0.0-4.3) 10/30/19 04:55 Baso % (Auto) 0.5 % (0.0-1.8) 10/30/19 04:55 Lymph # 1.9 K/mm3 (1.2-5.4) 10/30/19 04:55 [place] # 0.7 K/mm3 (0.0-0.8) 10/30/19 04:55 Eos # 0.1 K/mm3 (0.0-0.4) 10/30/19 04:55 Baso # 0.0 K/mm3 (0.0-0.1) 10/30/19 04:55 Add Manual Diff Complete 10/28/19 03:56 Total Counted 100 10/28/19 03:56 Seg Neutrophils % 64.5 % (40.0-70.0) 10/30/19 04:55 Seg Neuts % (Manual) 59.0 % (40.0-70.0) 10/28/19 03:56 Band Neutrophils % 0 % 10/28/19 03:56 Lymphocytes % (Manual) 30.0 % (13.4-35.0) 10/28/19 03:56 Reactive Lymphs % (Man) 0 % 10/28/19 03:56 Monocytes % (Manual) 5.0 % (0.0-7.3) 10/28/19 03:56 Eosinophils % (Manual) 5.0 % (0.0-4.3) H 10/28/19 03:56 Basophils % (Manual) 1.0 % (0.0-1.8) 10/28/19 03:56 Metamyelocytes % 0 % 10/28/19 03:56 Myelocytes % 0 % 10/28/19 03:56 Promyelocytes % 0 % 10/28/19 03:56 Blast Cells % 0 % 10/28/19 03:56 Nucleated RBC % Not Reportable 10/28/19 03:56 Seg Neutrophils # 5.0 K/mm3 (1.8-7.7) 10/30/19 04:55 Seg Neutrophils # Man 5.2 K/mm3 (1.8-7.7) 10/28/19 03:56 Band Neutrophils # 0.0 K/mm3 10/28/19 03:56 Lymphocytes # (Manual) 2.6 K/mm3 (1.2-5.4) 10/28/19 03:56 Abs React Lymphs (Man) 0.0 K/mm3 10/28/19 03:56 Monocytes # (Manual) 0.4 K/mm3 (0.0-0.8) 10/28/19 03:56 Eosinophils # (Manual) 0.4 K/mm3 (0.0-0.4) 10/28/19 03:56 Basophils # (Manual) 0.1 K/mm3 (0.0-0.1) 10/28/19 03:56 Metamyelocytes # 0.0 K/mm3 10/28/19 03:56 Myelocytes # 0.0 K/mm3 10/28/19 03:56 Promyelocytes # 0.0 K/mm3 10/28/19 03:56 Blast Cells # 0.0 K/mm3 10/28/19 03:56 WBC Morphology Not Reportable 10/28/19 03:56 Hypersegmented Neuts Not Reportable 10/28/19 03:56 Hyposegmented Neuts Not Reportable 10/28/19 03:56 Hypogranular Neuts Not Reportable 10/28/19 03:56 Smudge Cells Not Reportable 10/28/19 03:56 Toxic Granulation Not Reportable 10/28/19 03:56 Toxic Vacuolation Not Reportable 10/28/19 03:56 Dohle Bodies Not Reportable 10/28/19 03:56 Pelger-Huet Anomaly Not Reportable 10/28/19 03:56 Guy Rods Not Reportable 10/28/19 03:56 Platelet Estimate Consistent w auto 10/28/19 03:56 Clumped Platelets Not Reportable 10/28/19 03:56 Plt Clumps, EDTA Not Reportable 10/28/19 03:56 Large Platelets Not Reportable 10/28/19 03:56 Giant Platelets Not Reportable 10/28/19 03:56 Platelet Satelliting Not Reportable 10/28/19 03:56 Plt Morphology Comment Not Reportable 10/28/19 03:56 RBC Morphology Not Reportable 10/28/19 03:56 Dimorphic RBCs Not Reportable 10/28/19 03:56 Polychromasia Not Reportable 10/28/19 03:56 Hypochromasia Not Reportable 10/28/19 03:56 Poikilocytosis Not Reportable 10/28/19 03:56 Anisocytosis Not Reportable 10/28/19 03:56 Microcytosis Not Reportable 10/28/19 03:56 Macrocytosis Not Reportable 10/28/19 03:56 Spherocytes Not Reportable 10/28/19 03:56 Pappenheimer Bodies Not Reportable 10/28/19 03:56 Sickle Cells Not Reportable 10/28/19 03:56 Target Cells Not Reportable 10/28/19 03:56 Tear Drop Cells Not Reportable 10/28/19 03:56 Ovalocytes Not Reportable 10/28/19 03:56 Helmet Cells Not Reportable 10/28/19 03:56 [place] Bodies Not Reportable 10/28/19 03:56 [place] Rings Not Reportable 10/28/19 03:56 [place] Cells Not Reportable 10/28/19 03:56 Bite Cells Not Reportable 10/28/19 03:56 Crenated Cell Not Reportable 10/28/19 03:56 Elliptocytes Not Reportable 10/28/19 03:56 Acanthocytes (Spur) Not Reportable 10/28/19 03:56 Rouleaux Not Reportable 10/28/19 03:56 Hemoglobin C Crystals Not Reportable 10/28/19 03:56 Schistocytes Not Reportable 10/28/19 03:56 Malaria parasites Not Reportable 10/28/19 03:56 Stefan Bodies Not Reportable 10/28/19 03:56 Hem Pathologist Commnt No 10/28/19 03:56 PT 14.7 Sec. (12.2-14.9) 10/28/19 03:56 INR 1.14 (0.87-1.13) H 10/28/19 03:56 D-Dimer 966.63 ng/mlDDU (0-234) H 10/28/19 12:41 ABG pH 7.414 pH Units (7.350-7.450) 10/30/19 04:15 ABG pCO2 33.9 mm Hg 10/30/19 04:15 ABG pO2 78.0 mm Hg (80.0-90.0) L 10/30/19 04:15 ABG HCO3 21.2 mmol/L (20.0-26.0) 10/30/19 04:15 ABG O2 Saturation 96.9 % (95.0-99.0) 10/30/19 04:15 ABG O2 Content 14.5 (0.0-44) 10/30/19 04:15 ABG Base Excess -2.8 mmol/L (-2.0-3.0) L 10/30/19 04:15 ABG Hemoglobin 10.8 gm/dl (12.0-16.0) L 10/30/19 04:15 ABG Carboxyhemoglobin 1.9 % (0.0-5.0) 10/30/19 04:15 ABG Methemoglobin 0.4 % (0.0-1.5) 10/30/19 04:15 Oxyhemoglobin 94.7 % (95.0-99.0) L 10/30/19 04:15 FiO2 28 % 10/30/19 04:15 Sodium 140 mmol/L (137-145) 10/30/19 04:55 Potassium 4.1 mmol/L (3.6-5.0) 10/30/19 04:55 Chloride 103.9 mmol/L (98-107) 10/30/19 04:55 Carbon Dioxide 20 mmol/L (22-30) L 10/30/19 04:55 Anion Gap 20 mmol/L 10/30/19 04:55 BUN 43 mg/dL (7-17) H 10/30/19 04:55 Creatinine 3.0 mg/dL (0.7-1.2) H 10/30/19 04:55 Estimated GFR 19 ml/min 10/30/19 04:55 BUN/Creatinine Ratio 14 % 10/30/19 04:55 Glucose 107 mg/dL (65-100) H 10/30/19 04:55 POC Glucose 93 (70-105) 10/29/19 17:22 Lactic Acid 1.50 mmol/L (0.7-2.0) 10/28/19 08:08 Calcium 7.9 mg/dL (8.4-10.2) L 10/30/19 04:55 Magnesium 3.20 mg/dL (1.7-2.3) H 10/28/19 05:11 Ferritin 34.3 ng/mL (13.0-400.0) 10/28/19 12:41 Total Bilirubin 0.20 mg/dL (0.1-1.2) 10/28/19 05:11 AST 169 units/L (5-40) H 10/28/19 05:11 ALT 83 units/L (7-56) H 10/28/19 05:11 Alkaline Phosphatase 210 units/L (35-129) H 10/28/19 05:11 Lactate Dehydrogenase 307 units/L (91-180) H 10/28/19 12:41 Troponin T < 0.010 ng/mL (0.00-0.029) 10/28/19 03:56 C-Reactive Protein 2.60 mg/dL (0.00-1.30) H 10/28/19 12:41 NT-Pro-B Natriuret Pep 36296 pg/mL (0-900) H 10/28/19 05:11 Total Protein 7.1 g/dL (6.3-8.2) 10/28/19 05:11 Albumin 3.7 g/dL (3.9-5) L 10/28/19 05:11 Albumin/Globulin Ratio 1.1 % 10/28/19 05:11 Procalcitonin 0.63 ng/mL (<0.15) 10/28/19 12:41 Urine Color Straw (Yellow) 10/28/19 10:56 Urine Turbidity Slightly-cloudy (Clear) 10/28/19 10:56 Urine pH 5.0 (5.0-7.0) 10/28/19 10:56 Ur Specific [place] 1.008 (1.003-1.030) 10/28/19 10:56 Urine Protein <15 mg/dl mg/dL (Negative) 10/28/19 10:56 Urine Glucose (UA) Neg mg/dL (Negative) 10/28/19 10:56 Urine Ketones Neg mg/dL (Negative) 10/28/19 10:56 Urine Blood Neg (Negative) 10/28/19 10:56 Urine Nitrite Neg (Negative) 10/28/19 10:56 Urine Bilirubin Neg (Negative) 10/28/19 10:56 Urine Urobilinogen < 2.0 mg/dL (<2.0) 10/28/19 10:56 Ur Leukocyte Esterase Neg (Negative) 10/28/19 10:56 Urine WBC (Auto) 2.0 /HPF (0.0-6.0) 10/28/19 10:56 Urine RBC (Auto) < 1.0 /HPF (0.0-6.0) 10/28/19 10:56 U Epithel Cells (Auto) 1.0 /HPF (0-13.0) 10/28/19 10:56 Urine Mucus Few /HPF 10/28/19 10:56 Urine Creatinine 137.7 mg/dL (0.1-20.0) H 10/29/19 06:00 Urine Sodium 51 mmol/L 10/29/19 06:00 Urine Opiates Screen Presumptive negative 10/29/19 18:15 Urine Methadone Screen Presumptive negative 10/29/19 18:15 Ur Barbiturates Screen Presumptive negative 10/29/19 18:15 Ur Phencyclidine Scrn Presumptive negative 10/29/19 18:15 Ur Amphetamines Screen Presumptive negative 10/29/19 18:15 U Benzodiazepines Scrn Presumptive positive 10/29/19 18:15 Urine Cocaine Screen Presumptive positive 10/29/19 18:15 U Marijuana (THC) Screen Presumptive negative 10/29/19 18:15 Drugs of Abuse Note Disclamer 10/29/19 18:15 Coronavirus (PCR) Negative (Negative) 10/29/19 09:50 Microbiology: Microbiology 10/28/19 05:11 Peripheral/Venous Blood Culture - Preliminary NO GROWTH AFTER 48 HOURS 10/28/19 05:11 Peripheral/Venous Blood Culture - Preliminary NO GROWTH AFTER 48 HOURS Stauffer/IV: Voiding Method Indwelling Catheter IV Catheter Type [Left Hand] INT / Saline Lock IV Catheter Type [Right Hand] INT / Saline Lock IV Catheter Type [Right Peripheral IV Antecubital] Active Medications - Current Medications Current Medications: Generic Name Dose Route Start Last Admin Trade Name Freq PRN Reason Stop Dose Admin Allopurinol 100 mg 10/29/19 10:00 10/29/19 10:10 Zyloprim PO 100 mg QDAY MARCIO Administration Lipase/Protease/Amylase 1 each 10/29/19 08:06 Devin Grissom 10,500 Unit FEEDTUBE PRN PRN For Clogged Feeding Tube Arformoterol Tartrate 15 mcg 10/28/19 20:00 10/30/19 08:01 Brovana Nebu IH 15 mcg Q12HRT MARCIO Administration Aspirin 81 mg 10/29/19 10:00 10/29/19 10:10 Baby Aspirin PO 81 mg QDAY MARCIO Administration Atorvastatin Calcium 40 mg 10/28/19 22:00 10/29/19 21:29 Lipitor PO 40 mg QHS MARCIO Administration Budesonide 0.5 mg 10/28/19 20:00 10/30/19 08:01 Pulmicort IH 0.5 mg Q12HRT MARCIO Administration Carvedilol 6.25 mg 10/29/19 10:00 10/29/19 10:14 Coreg PO 6.25 mg DAILY MARCIO Administration Divalproex Sodium 250 mg 10/28/19 22:00 10/29/19 22:[address] PO 250 mg BID MARCIO Administration Enoxaparin Sodium 30 mg 10/29/19 10:00 10/29/19 10:10 Enoxaparin SUB-Q 30 mg QDAY MARCIO Administration Hydrophilic Ointment 1 applic 10/28/19 04:57 Vaseline Lip Therapy TP Q2HR PRN Dry Lips Nitroglycerin/Dextrose 50 mg in 250 mls @ 3 mls/hr 10/28/19 05:00 10/28/19 07:24 Tridil Drip 50mg/250ml IV Infused TITR MARCIO Titration Protocol 10 MCG/MIN Ceftriaxone Sodium 2 gm in 100 mls @ 200 mls/hr 10/29/19 10:00 10/29/19 10:40 Rocephin/Ns 2 Gm/100 Ml IV Infused Q24HR MARCIO Infusion Protocol Azithromycin 500 mg/ Sodium 250 mls @ 250 mls/hr 10/29/19 10:00 10/29/19 11: 30 Chloride IV Infused Q24HR MARCIO Infusion Protocol Sodium Chloride 1,000 mls @ 75 mls/hr 10/29/19 13:00 10/30/19 03:27 Nacl 0.45% 1000 Ml IV 75 mls/hr DIRECT MARCIO Administration Multi-Ingred Cream/Lotion/Oil/Oint 1 applic 10/28/19 04:57 Artificial Tears Ophth Oint OU Q4HR PRN Dry Eye(s) Oxybutynin Chloride 5 mg 10/29/19 10:00 10/29/19 10:12 Ditropan PO 5 mg DAILY MARCIO Administration Simple Syrup 15 ml 10/29/19 08:06 Simple Syrup FEEDTUBE PRN PRN Hypoglycemia Simple Syrup 30 ml 10/29/19 08:06 Simple Syrup FEEDTUBE PRN PRN Hypoglycemia Sodium Bicarbonate 325 mg 10/29/19 08:06 Sodium Bicarbonate FEEDTUBE PRN PRN For Clogged Feeding Tube Sodium Chloride 10 ml 10/28/19 22:00 10/29/19 21:29 Sodium Chloride Flush Syringe 10 Ml IV 10 ml BID MARCIO Administration Sodium Chloride 10 ml 10/28/19 11:46 Sodium Chloride Flush Syringe 10 Ml IV PRN PRN LINE FLUSH Nutrition/Malnutrition Assess - Dietary Evaluation Nutrition/Malnutrition Findings: Nutrition Notes Start: 10/29/19 07:58 Freq: Status: Active Protocol: Document 10/29/19 07:58 LM (Rec: 10/29/19 08:06 LM [id number]) Nutrition Notes Need for Assessment generated from: MD Order Initial or Follow up Assessment Current Diagnosis CKD(stage I-IV),COPD, Hypertension,Heart Failure Other Pertinent Diagnosis R/O COVID-19, pneu, tobacco/ cocaine dependence, schizophrenia, depression Current Diet no diet Labs/Tests BUN 41 Cr 3.2 Pertinent Medications Reviewed Height 5 ft 4 in Weight 69.8 kg [place] Body Weight (kg) 54.54 BMI 26.4 Weight Status Overweight Subjective/Other Information MD consult to evaluate nutritional intake and for TF. RN screen for MST. Pt is on the vent. Burn Absent Trauma Absent Current % PO Negligible Minimum of two criteria No physical signs of malnutrition #1 Nutrition Diagnosis Inadequate oral intake Etiology mechanical vent As Evidenced by Signs and Symptoms Pt unable to consume PO Is patient on ventilator? Yes Is Patient Ambulatory and/or Out of Bed No REE-([facility]-confined to bed) 1490.808 Calculation Used for Recommendations [facility] Additional Notes Protein: 84-140g (1.2-2g/kg) Fluid: 1ml/kcal Nutrition Intervention Change Diet Order: TF Nutrition Support: Osmolite 1.5 at 40ml/hr Flush 120ml q4h Kcal 1,440 Protein (gm) 60 Fluid (mL) 732 Goal #1 TF start/tolerance Anticipated Discharge Needs: unable to determine at this time Follow-Up By: 10/31/19 Additional Comments F/U for TF start/tolerance
[2019-10-30] MEDS: DIVALPROEX DR 250 MG TAB PO SCH ×2 (09:49→22:04)
[2019-10-30] MEDS: ENOXAPARIN 30 MG/0.3 ML INJ SUB-Q SCH (09:49)
[2019-10-30] MEDS: allopurinoL 100 MG TAB PO SCH (09:49)
[2019-10-30] MEDS: ASPIRIN 81 MG TAB CHEW PO SCH (09:50)
[2019-10-30] MEDS: OXYBUTYNIN 5 MG TAB PO SCH (09:50)
[2019-10-30] MEDS: carvediloL 6.25 MG TAB PO SCH (09:50)
[2019-10-30] MEDS: cefTRIAXone/NS 2 GM/100 ML 2 GM/100 ML BAG IV SCH (09:51)
--- NOTE | 2019-10-30 09:57 | Progress Note ---
Assessment and Plan 1. Acute kidney injury: Likely vasomotor Acute kidney injury superimposed on CKD stage 3 in the setting of hypotension and respiratory failure. UA is bland. Renal US negative for hydro, left renal cyst noted. Creatinine level beginning to improve slightly, now 3.0 from 3.2. Continue IV fluids. Monitor renal function. Avoid nephrotoxic agents. Meds dosage based on GFR. 2. FEN: Metabolic acidosis, monitor. Hypocalcemia, monitor. Monitor lytes. 3. Acute hypoxic respiratory failure: Multifactorial etiology secondary to bilateral pneumonia, heart failure and pulmonary hypertension. Was extubated this morning. Currently on BiPap. Pulmonary following. 4. Bilateral pneumonia.: COVID-19 negative on 10/28/2019. 5. H/o HFpEF: S/p R & L cath 07/20. Appears compensated. 6. H/o schizoaffective disorder with depression. 7. Hypertension: Monitor BP. 8. Substance abuse. 9. Tobacco abuse. 10. H/o Afib: Cards following. S/p ablation in the past. Subjective Date of service: 10/30/19 Interval history: Patient was seen and examined at the bedside. She is awake, appears mildly distressed and was extubated this morning to BiPap. She is not responding verbally but able to nod head and some grunting. No other events reported by staff. Objective - Exam Narrative Exam: General appearance: well-developed, well-nourished, appears stated age, BiPap, restraints present, mild distress noted EENT: ATNC, PERRL, hearing intact Neck: neck supple, trachea midline Respiratory: Clear to Ascultation Heart: irregular rhythm, S1S2, no murmurs, tachycardic Gastrointestinal: normoactive bowel sounds, no tenderness, not distended Integumentary: no rash, warm and dry Neurologic: able to move all extremities, nods head to questions and some grunting noted, no verbal communication Musculoskeletal: no edema noted : cabello catheter noted Psychiatric: agitated at time of exam - Vital Signs Vital signs: Vital Signs - 12hr 10/29/19 10/29/19 10/29/19 22:00 22:30 23:00 Temperature Pulse Rate 59 L 58 L 59 L Pulse Rate [ Bilateral] Respiratory 20 20 20 Rate Respiratory Rate [Bilateral ] Blood Pressure 137/48 124/52 131/44 O2 Sat by Pulse 100 98 98 Oximetry 10/29/19 10/29/19 10/30/19 23:19 23:30 00:00 Temperature 98.3 F Pulse Rate 60 62 61 Pulse Rate [ Bilateral] Respiratory 20 17 20 Rate Respiratory Rate [Bilateral ] Blood Pressure 131/44 139/37 136/50 O2 Sat by Pulse 99 100 93 Oximetry 10/30/19 10/30/19 10/30/19 00:03 00:30 01:00 Temperature Pulse Rate 62 72 58 L Pulse Rate [ Bilateral] Respiratory 20 Rate Respiratory Rate [Bilateral ] Blood Pressure 136/50 153/61 O2 Sat by Pulse 99 98 Oximetry 10/30/19 10/30/19 10/30/19 01:01 01:30 02:00 Temperature Pulse Rate 68 66 67 Pulse Rate [ Bilateral] Respiratory 13 20 21 Rate Respiratory Rate [Bilateral ] Blood Pressure 143/51 138/48 130/46 O2 Sat by Pulse 95 90 92 Oximetry 10/30/19 10/30/19 10/30/19 02:30 03:00 03:30 Temperature Pulse Rate 65 66 65 Pulse Rate [ Bilateral] Respiratory 20 19 20 Rate Respiratory Rate [Bilateral ] Blood Pressure 123/48 124/45 124/48 O2 Sat by Pulse 93 95 94 Oximetry 10/30/19 10/30/19 10/30/19 04:00 04:15 04:30 Temperature 99.2 F Pulse Rate 61 63 63 Pulse Rate [ Bilateral] Respiratory 20 20 Rate Respiratory Rate [Bilateral ] Blood Pressure 134/50 134/50 123/46 O2 Sat by Pulse 95 96 93 Oximetry 10/30/19 10/30/19 10/30/19 05:01 05:30 06:00 Temperature Pulse Rate 63 63 65 Pulse Rate [ Bilateral] Respiratory 20 19 20 Rate Respiratory Rate [Bilateral ] Blood Pressure 123/44 134/52 132/49 O2 Sat by Pulse 94 95 95 Oximetry 10/30/19 10/30/19 10/30/19 06:30 07:00 07:30 Temperature Pulse Rate 67 65 66 Pulse Rate [ Bilateral] Respiratory 17 20 20 Rate Respiratory Rate [Bilateral ] Blood Pressure 128/41 132/48 125/46 O2 Sat by Pulse 94 96 95 Oximetry 10/30/19 10/30/19 10/30/19 08:00 08:01 08:30 Temperature 99.1 F Pulse Rate 67 69 62 Pulse Rate [ 68 Bilateral] Respiratory 20 20 Rate Respiratory 20 Rate [Bilateral ] Blood Pressure 110/41 110/41 126/48 O2 Sat by Pulse 94 95 98 Oximetry 10/30/19 09:50 Temperature Pulse Rate 102 H Pulse Rate [ Bilateral] Respiratory Rate Respiratory Rate [Bilateral ] Blood Pressure 130/55 O2 Sat by Pulse Oximetry - Lab 10/30/19 04:55 10/30/19 04:55 Most recent lab results ABG pH 7.414 pH Units (7.350-7.450) 10/30/19 04:15 ABG pCO2 33.9 mm Hg 10/30/19 04:15 ABG pO2 78.0 mm Hg (80.0-90.0) L 10/30/19 04:15 ABG HCO3 21.2 mmol/L (20.0-26.0) 10/30/19 04:15 ABG O2 Saturation 96.9 % (95.0-99.0) 10/30/19 04:15 Calcium 7.9 mg/dL (8.4-10.2) L 10/30/19 04:55 Magnesium 3.20 mg/dL (1.7-2.3) H 10/28/19 05:11 Urine Creatinine 137.7 mg/dL (0.1-20.0) H 10/29/19 06:00 Urine Sodium 51 mmol/L 10/29/19 06:00 Medications & Allergies - Medications Allergies/Adverse Reactions: Allergies codeine Allergy (Verified 08/05/19 18:06) Rash Sulfa (Sulfonamide Antibiotics) Allergy (Verified 08/05/19 18:06) Rash lisinopril Adverse Reaction (Verified 08/05/19 18:06) Unknown Cough Home Medications: Home Medications Medication Instructions Recorded Confirmed Last Taken Type traZODone [Desyrel] 50 mg PO QHS 08/09/13 10/29/19 04/05/14 History Budesonide/Formoterol Fumarate 10.2 gm IH Q4H 03/10/19 10/29/19 03/10/19 History [Symbicort 160-4.5 Mcg Inhaler] Chlorpheniramine/Dextromethorp 1 each PO Q6HR 03/10/19 10/29/19 03/10/19 History [Cough-Cold Tablet] allopurinoL [Zyloprim] 100 mg PO QDAY 03/10/19 10/29/19 03/10/19 History methOCARBAMOL 500 mg PO Q6HR PRN 03/27/19 10/29/19 Unknown History AtorvaSTATin [Lipitor] 40 mg PO QHS #30 tablet 04/07/19 10/29/19 Unknown Rx Aspirin EC [Halfprin EC] 81 mg PO DAILY #30 tablet. 07/18/19 10/29/19 Unknown Rx Depakote ER 250 mg PO BID #14 07/18/19 10/29/19 Unknown Rx Fluticasone [Flonase] 100 mcg NS QDAY #1 bottle 07/18/19 10/29/19 Unknown Rx Oxybutynin [Ditropan] 5 mg PO DAILY #7 07/18/19 10/29/19 Unknown Rx Pantoprazole [Protonix TAB] 40 mg PO QDAY #30 07/18/19 10/29/19 Unknown Rx carvediloL [Coreg] 6.25 mg PO DAILY #60 07/18/19 10/29/19 Unknown Rx Aspirin [Aspirin BABY CHEW TAB] 81 mg PO QDAY #30 tab.chew 07/23/19 10/29/19 Unknown Rx Acetaminophen [Non-Aspirin Extra 500 mg PO Q6HR PRN #30 tablet 08/05/19 10/29/19 Unknown Rx Strength] Agnieszka Root [Agnieszka] 250 mg PO QID PRN #30 capsule 08/05/19 10/29/19 Unknown Rx Metoclopramide [Reglan] 10 mg PO QID PRN #30 tablet 08/05/19 10/29/19 Unknown Rx traMADoL [Ultram 50 MG tab] 50 mg PO Q6HR PRN #7 tablet 09/27/19 10/29/19 Unkn own Rx Active Medications: Generic Name Dose Route Start Last Admin Trade Name Freq PRN Reason Stop Dose Admin Allopurinol 100 mg 10/29/19 10:00 10/30/19 09:49 Zyloprim PO 100 mg QDAY MARCIO Administration Lipase/Protease/Amylase 1 each 10/29/19 08:06 Pancrecollins [place] 10,500 Unit FEEDTUBE PRN PRN For Clogged Feeding Tube Arformoterol Tartrate 15 mcg 10/28/19 20:00 10/30/19 08:01 Brovana Nebu IH 15 mcg Q12HRT MARCIO Administration Aspirin 81 mg 10/29/19 10:00 10/30/19 09:50 Baby Aspirin PO 81 mg QDAY MARCIO Administration Atorvastatin Calcium 40 mg 10/28/19 22:00 10/29/19 21:29 Lipitor PO 40 mg QHS MARCIO Administration Budesonide 0.5 mg 10/28/19 20:00 10/30/19 08:01 Pulmicort IH 0.5 mg Q12HRT MARCIO Administration Carvedilol 6.25 mg 10/29/19 10:00 10/30/19 09:50 Coreg PO 6.25 mg DAILY MARCIO Administration Divalproex Sodium 250 mg 10/28/19 22:00 10/30/19 09:[address] PO 250 mg BID MARCIO Administration Enoxaparin Sodium 30 mg 10/29/19 10:00 10/30/19 09:49 Enoxaparin SUB-Q 30 mg QDAY MARCIO Administration Hydrophilic Ointment 1 applic 10/28/19 04:57 Vaseline Lip Therapy TP Q2HR PRN Dry Lips Nitroglycerin/Dextrose 50 mg in 250 mls @ 3 mls/hr 10/28/19 05:00 10/28/19 07:24 Tridil Drip 50mg/250ml IV Infused TITR MARCIO Titration Protocol 10 MCG/MIN Ceftriaxone Sodium 2 gm in 100 mls @ 200 mls/hr 10/29/19 10:00 10/30/19 09:51 Rocephin/Ns 2 Gm/100 Ml IV 200 mls/hr Q24HR MARCIO Administration Protocol Azithromycin 500 mg/ Sodium 250 mls @ 250 mls/hr 10/29/19 10:00 10/29/19 11:30 Chloride IV Infused Q24HR MARCIO Infusion Protocol Sodium Chloride 1,000 mls @ 75 mls/hr 10/29/19 13:00 10/30/19 03:27 Nacl 0.45% 1000 Ml IV 75 mls/hr DIRECT MARCIO Administration Multi-Ingred Cream/Lotion/Oil/Oint 1 applic 10/28/19 04:57 Artificial Tears Ophth Oint OU Q4HR PRN Dry Eye(s) Oxybutynin Chloride 5 mg 10/29/19 10:00 10/30/19 09:50 Ditropan PO 5 mg DAILY MARCIO Administration Simple Syrup 15 ml 10/29/19 08:06 Simple Syrup FEEDTUBE PRN PRN Hypoglycemia Simple Syrup 30 ml 10/29/19 08:06 Simple Syrup FEEDTUBE PRN PRN Hypoglycemia Sodium Bicarbonate 325 mg 10/29/19 08:06 Sodium Bicarbonate FEEDTUBE PRN PRN For Clogged Feeding Tube Sodium Chloride 10 ml 10/28/19 22:00 10/30/19 09:51 Sodium Chloride Flush Syringe 10 Ml IV 10 ml BID MARCIO Administration Sodium Chloride 10 ml 10/28/19 11:46 Sodium Chloride Flush Syringe 10 Ml IV PRN PRN LINE FLUSH
[2019-10-30] MEDS: AZITHROMYCIN 500 MG in SODIUM CHLORIDE 0.9% 250ML 250 ML IV SCH (10:00)
[2019-10-30] MEDS ORDERED: hydrALAZINE 20 MG/1 ML INJ IV PRN (10:27)
--- NOTE | 2019-10-30 11:23 | Progress Note ---
Assessment and Plan - Patient Problems (1) CHF exacerbation Current Visit: No Status: Acute Plan to address problem: Heart failure with a preserved ejection fraction /[facility] 07/2019: moderate -severe pulmonary HTN, PASP 60. No significant aortic stenosis. Normal coronaries, LVEF 45%. We will repeat an echocardiogram for reassessment. (2) Paroxysmal atrial fibrillation Current Visit: No Status: Acute Plan to address problem: status post atrial fibrillation ablation done while she lived in [place] year ago. sinus rhythm on telemetry. Subjective Date of service: 10/30/19 Interval history: Patient was extubated this morning, currently on Bipap therapy. Objective Vital Signs Temp Pulse Pulse Pulse Resp Resp BP 10/30/19 10:25 123 H 18 246/96 10/30/19 09:50 102 H 130/55 10/30/19 08:30 62 20 126/48 10/30/19 08:01 69 68 20 110/41 10/30/19 08:00 99.1 F 67 20 110/41 10/30/19 07:30 66 20 125/46 10/30/19 07:00 65 20 132/48 10/30/19 06:30 67 17 128/41 10/30/19 06:00 65 20 132/49 10/30/19 05:30 63 19 134/52 10/30/19 05:01 63 20 123/44 10/30/19 04:30 63 20 123/46 10/30/19 04:15 63 134/50 10/30/19 04:00 99.2 F 61 20 134/50 10/30/19 03:30 65 20 124/48 10/30/19 03:00 66 19 124/45 10/30/19 02:30 65 20 123/48 10/30/19 02:00 67 21 130/46 10/30/19 01:30 66 20 138/48 10/30/19 01:01 68 13 143/51 10/30/19 01:00 58 L 10/30/19 00:30 72 20 153/61 10/30/19 00:03 62 136/50 10/30/19 00:00 98.3 F 61 20 136/50 10/29/19 23:30 62 17 139/37 10/29/19 23:19 60 20 131/44 10/29/19 23:00 59 L 20 131/44 05/31/20 22:30 58 L 20 124/52 10/29/19 22:00 59 L 20 137/48 10/29/19 21:30 59 L 20 129/47 10/29/19 21:00 61 20 118/39 10/29/19 20:30 59 L 20 116/44 10/29/19 20:00 98.0 F 60 20 123/40 10/29/19 19:47 63 64 19 128/45 10/29/19 19:31 66 18 128/45 10/29/19 19:00 60 20 133/45 10/29/19 18:31 62 20 129/47 10/29/19 18:00 60 20 144/46 10/29/19 17:31 138/47 10/29/19 17:01 62 19 119/50 10/29/19 16:53 57 L 128/46 10/29/19 16:30 73 25 H 117/48 10/29/19 16:00 97.9 F 57 L 57 L 19 128/46 10/29/19 15:30 59 L 20 134/43 10/29/19 15:00 57 L 14 128/46 10/29/19 14:30 56 L 20 134/43 10/29/19 14:00 55 L 19 128/46 10/29/19 13:30 58 L 15 123/51 10/29/19 13:00 55 L 17 119/55 10/29/19 12:30 61 9 L 119/55 10/29/19 12:00 97.4 F L 63 63 20 124/46 10/29/19 11:31 65 125/45 10/29/19 11:30 62 15 143/56 Pulse Ox 10/30/19 10:25 92 10/30/19 09:50 10/30/19 08:30 98 10/30/19 08:01 95 10/30/19 08:00 94 10/30/19 07:30 95 10/30/19 07:00 96 10/30/19 06:30 94 10/30/19 06:00 95 10/30/19 05:30 95 10/30/19 05:01 94 10/30/19 04:30 93 10/30/19 04:15 96 10/30/19 04:00 95 10/30/19 03:30 94 10/30/19 03:00 95 10/30/19 02:30 93 10/30/19 02:00 92 10/30/19 01:30 90 10/30/19 01:01 95 10/30/19 01:00 10/30/19 00:30 98 10/30/19 00:03 99 10/30/19 00:00 93 10/29/19 23:30 100 10/29/19 23:19 99 10/29/19 23:00 98 10/29/19 22:30 98 10/29/19 22:00 100 10/29/19 21:30 99 10/29/19 21:00 98 10/29/19 20:30 99 10/29/19 20:00 96 10/29/19 19:47 98 10/29/19 19:31 97 10/29/19 19:00 98 10/29/19 18:31 99 10/29/19 18:00 97 10/29/19 17:31 98 10/29/19 17:01 100 10/29/19 16:53 100 10/29/19 16:30 100 10/29/19 16:00 100 10/29/19 15:30 100 10/29/19 15:00 100 10/29/19 14:30 100 10/29/19 14:00 10/29/19 13:30 100 10/29/19 13:00 10/29/19 12:30 10/29/19 12:00 10/29/19 11:31 97 10/29/19 11:30 - Physical Examination HEENT: Positive: PERRL Cardiac: Positive: Tachycardia - Labs and Meds CBC 10/30/19 Range/Units 04:55 WBC 7.8 (4.5-11.0) K/mm3 RBC 3.25 L (3.65-5.03) M/mm3 Hgb 9.1 L (10.1-14.3) gm/dl Hct 28.0 L (30.3-42.9) % Plt Count 255 (140-440) K/mm3 Lymph # 1.9 (1.2-5.4) K/mm3 [place] # 0.7 (0.0-0.8) K/mm3 Eos # 0.1 (0.0-0.4) K/mm3 Baso # 0.0 (0.0-0.1) K/mm3 Comprehensive Metabolic Panel 10/30/19 Range/Units 04:55 Sodium 140 (137-145) mmol/L Potassium 4.1 (3.6-5.0) mmol/L Chloride 103.9 (98-107) mmol/L Carbon Dioxide 20 L (22-30) mmol/L BUN 43 H (7-17) mg/dL Creatinine 3.0 H (0.7-1.2) mg/dL Glucose 107 H (65-100) mg/dL Calcium 7.9 L (8.4-10.2) mg/dL
--- NOTE | 2019-10-30 12:04 | Progress Note ---
Assessment and Plan Cultures: 10/28/2019 blood culture: No growth 10/28/2019 coronavirus PCR: Negative Procalcitonin 0.11 and 0.63 A/P: 64-year-old female with hypertension, CKD, cardiomyopathy, pulmonary hypertension, paroxysmal atrial fibrillation on anticoagulation, history of substance abuse, depression, schizoaffective disorder was admitted to the hospital with complaints of chest tightness, cough and shortness of breath: #Bilateral airspace disease on chest x-ray: CXR with rapid interval improvement. No fever, no leukocytosis. COVID-19 PCR is negative. proBNP elevated. Procalcitonin mild elevation could be related to renal dysfunction. Very low suspicion for pneumonia. Suspect CHF. #Acute respiratory failure: On mechanical ventilation #CKD stage III Recs: antibiotics discontinued ID will sign off. Please call with questions. Aguila Jordan MD, FACP [facility] ([facility]) C: [phone] O: [phone] F: [phone] Subjective Date of service: 10/30/19 Interval history: Extubated. No fever. Doing well. On BiPAP. Discussed with RN. Objective - Exam Narrative Exam: Physical Exam: Constitutional: awake, alert, on BiPAP Head, Ears, Nose: Normocephalic, atraumatic. External ears, nose normal Eyes: Conjunctivae/corneas clear. No icterus. No ptosis. Oral: BiPAP Cardiovascular: S1, S2 + Respiratory: AE fair bilaterally and equal GI: Soft, bowel sounds + Musculoskeletal: No pedal edema, no cyanosis. Skin: No rash or abscess Hem/Lymphatic: No palpable cervical or supraclavicular nodes. No lymphangitis Psych: calm, no agitation Neurological: awake, alert, responsive - Constitutional Vitals: Vital Signs Temp Pulse Resp BP Pulse Ox 99.1 F 123 H 18 246/96 92 10/30/19 08:00 10/30/19 10:25 10/30/19 10:25 10/30/19 10:25 10/30/19 10:25 Temperature -Last 24 Hours Temperature 99.1 F Temperature 99.2 F Temperature 98.3 F Temperature 98.0 F Temperature 98.0 F Temperature 97.9 F - Labs CBC & Chem 7: 10/30/19 04:55 10/30/19 04:55 Labs: Abnormal lab results 10/30/19 10/30/19 10/30/19 Range/Units 04:15 04:55 04:55 RBC 3.25 L (3.65-5.03) M/mm3 Hgb 9.1 L (10.1-14.3) gm/dl Hct 28.0 L (30.3-42.9) % RDW 17.2 H (13.2-15.2) % [place] % (Auto) 9.2 H (0.0-7.3) % ABG pO2 78.0 L (80.0-90.0) mm Hg ABG Base Excess -2.8 L (-2.0-3.0) mmol/L ABG Hemoglobin 10.8 L (12.0-16.0) gm/dl Oxyhemoglobin 94.7 L (95.0-99.0) % Carbon Dioxide 20 L (22-30) mmol/L BUN 43 H (7-17) mg/dL Creatinine 3.0 H (0.7-1.2) mg/dL Glucose 107 H (65-100) mg/dL Calcium 7.9 L (8.4-10.2) mg/dL
[2019-10-30] MEDS: cloNIDine 0.1 MG TAB PO SCH ×2 (14:00→22:04)
[2019-10-30] MEDS ORDERED: ONDANSETRON 4 MG/2 ML INJ IV PRN (14:12)
[2019-10-30] MEDS ORDERED: cloNIDine 0.1 MG TAB PO ONE (14:13)
[2019-10-31 06:24] LABS: Calcium 8.8 mg/dL (8.4-10.2)
[2019-10-31] MEDS: BUDESONIDE 0.5 MG/2 ML NEBU IH SCH ×2 (07:45→21:19)
[2019-10-31] MEDS: ARFORMOTEROL 15 MCG/2 ML NEBU IH SCH ×2 (07:45→21:18)
--- NOTE | 2019-10-31 09:09 | Progress Note ---
Assessment and Plan 64 y/o female with known cardiomyopathy, admitted with acute respiratory failure secondary to pulmonary edema and cocaine abuse. 1. Wean FiO2 to off as tolerated 2. BP control per primary team. Yesterday patient could not tell me any of the names of her meds. I selected the BB and alpha 1 inhibitor based on profile. She does have coreg on her home list so can change if needed but will likely need more clonidine 3. Will continue to follow. Subjective Date of service: 10/31/19 Interval history: No acute event. Successful transfer to floor on yesterday. BP was good on transition but started increasing during the night. Objective Vital Signs - 12hr 10/30/19 10/30/19 10/30/19 21:13 21:15 22:04 Temperature Pulse Rate 78 Pulse Rate [ 78 Bilateral] Pulse Rate [ From Monitor] Respiratory Rate Respiratory 20 Rate [Bilateral ] Blood Pressure 160/64 O2 Sat by Pulse 100 Oximetry 10/30/19 10/31/19 10/31/19 23:12 02:22 03:44 Temperature 98.0 F 98.0 F Pulse Rate 60 71 Pulse Rate [ Bilateral] Pulse Rate [ 70 From Monitor] Respiratory 18 12 18 Rate Respiratory Rate [Bilateral ] Blood Pressure 198/66 196/66 O2 Sat by Pulse 94 94 92 Oximetry 10/31/19 04:00 Temperature Pulse Rate 77 Pulse Rate [ Bilateral] Pulse Rate [ From Monitor] Respiratory Rate Respiratory Rate [Bilateral ] Blood Pressure O2 Sat by Pulse Oximetry Constitutional: other (critically ill on vent, awake, alert) Eyes: non-icteric ENT: oropharynx moist Neck: supple Effort: normal Ascultation: Bilateral: other (coarse BS bilaterally) Cardiovascular: regular rate and rhythm (no mrg) Gastrointestinal: normoactive bowel sounds, soft, non-tender, non-distended Integumentary: normal Neurologic: normal mental status, non-focal exam, pupils equal and round, CN II- XII normal Psychiatric: mood appropriate, affect normal CBC and BMP: 10/30/19 04:55 10/31/19 05:15 ABG, PT/INR, D-dimer: ABG ABG pH 7.414 pH Units (7.350-7.450) 10/30/19 04:15 ABG pCO2 33.9 mm Hg 10/30/19 04:15 ABG pO2 78.0 mm Hg (80.0-90.0) L 10/30/19 04:15 ABG O2 Saturation 96.9 % (95.0-99.0) 10/30/19 04:15 PT/INR, D-dimer PT 14.7 Sec. (12.2-14.9) 10/28/19 03:56 INR 1.14 (0.87-1.13) H 10/28/19 03:56 D-Dimer 966.63 ng/mlDDU (0-234) H 10/28/19 12:41 Abnormal lab findings: Abnormal Labs 10/28/19 10/28/19 10/28/19 03:56 03:56 04:19 RBC Hgb Hct RDW 18.2 H [place] % (Auto) Seg Neutrophils % Eosinophils % (Manual) 5.0 H INR 1.14 H D-Dimer 386.89 H ABG pH ABG pO2 135.7 H ABG HCO3 ABG O2 Saturation ABG Base Excess -4.1 L ABG Hemoglobin 10.4 L Oxyhemoglobin Carbon Dioxide BUN Creatinine Glucose Lactic Acid Calcium Magnesium AST ALT Alkaline Phosphatase Lactate Dehydrogenase C-Reactive Protein NT-Pro-B Natriuret Pep Albumin Urine Creatinine 10/28/19 10/28/19 10/28/19 05:11 05:11 06:20 RBC Hgb Hct RDW [place] % (Auto) Seg Neutrophils % Eosinophils % (Manual) INR D-Dimer ABG pH 7.210 L ABG pO2 96.5 H ABG HCO3 17.8 L ABG O2 Saturation ABG Base Excess -9.6 L ABG Hemoglobin 9.4 L Oxyhemoglobin Carbon Dioxide 16 L BUN 27 H Creatinine 2.7 H Glucose 229 H Lactic Acid 7.20 H* Calcium Magnesium 3.20 H AST 169 H ALT 83 H Alkaline Phosphatase 210 H Lactate Dehydrogenase 353 H C-Reactive Protein 1.80 H NT-Pro-B Natriuret Pep 60850 H Albumin 3.7 L Urine Creatinine 10/28/19 10/28/19 10/28/19 09:15 12:41 12:41 RBC Hgb Hct RDW [place] % (Auto) Seg Neutrophils % Eosinophils % (Manual) INR D-Dimer 966.63 H ABG pH 7.340 L ABG pO2 ABG HCO3 19.8 L ABG O2 Saturation ABG Base Excess -5.5 L ABG Hemoglobin 10.4 L Oxyhemoglobin 94.4 L Carbon Dioxide BUN Creatinine Glucose 130 H Lactic Acid Calcium Magnesium AST ALT Alkaline Phosphatase Lactate Dehydrogenase 307 H C-Reactive Protein 2.60 H NT-Pro-B Natriuret Pep Albumin Urine Creatinine 10/29/19 10/29/19 10/29/19 04:05 04:35 04:35 RBC 3.62 L Hgb Hct RDW 17.2 H [place] % (Auto) 8.8 H Seg Neutrophils % 74.8 H Eosinophils % (Manual) INR D-Dimer ABG pH ABG pO2 215.8 H ABG HCO3 19.9 L ABG O2 Saturation 99.3 H ABG Base Excess -4.9 L ABG Hemoglobin 9.8 L Oxyhemoglobin Carbon Dioxide 18 L BUN 41 H Creatinine 3.2 H Glucose Lactic Acid Calcium Magnesium AST ALT Alkaline Phosphatase Lactate Dehydrogenase C-Reactive Protein NT-Pro-B Natriuret Pep Albumin Urine Creatinine 10/29/19 10/30/19 10/30/19 06:00 04:15 04:55 RBC 3.25 L Hgb 9.1 L Hct 28.0 L RDW 17.2 H [place] % (Auto) 9.2 H Seg Neutrophils % Eosinophils % (Manual) INR D-Dimer ABG pH ABG pO2 78.0 L ABG HCO3 ABG O2 Saturation ABG Base Excess -2.8 L ABG Hemoglobin 10.8 L Oxyhemoglobin 94.7 L Carbon Dioxide BUN Creatinine Glucose Lactic Acid Calcium Magnesium AST ALT Alkaline Phosphatase Lactate Dehydrogenase C-Reactive Protein NT-Pro-B Natriuret Pep Albumin Urine Creatinine 137.7 H 10/30/19 10/31/19 04:55 05:15 RBC Hgb Hct RDW [place] % (Auto) Seg Neutrophils % Eosinophils % (Manual) INR D-Dimer ABG pH ABG pO2 ABG HCO3 ABG O2 Saturation ABG Base Excess ABG Hemoglobin Oxyhemoglobin Carbon Dioxide 20 L BUN 43 H 34 H Creatinine 3.0 H 2.4 H Glucose 107 H Lactic Acid Calcium 7.9 L Magnesium AST ALT Alkaline Phosphatase Lactate Dehydrogenase C-Reactive Protein NT-Pro-B Natriuret Pep Albumin Urine Creatinine
--- NOTE | 2019-10-31 10:02 | Progress Note ---
Assessment and Plan 1. Acute kidney injury: Likely vasomotor Acute kidney injury superimposed on CKD stage 3 in the setting of hypotension and respiratory failure. UA is bland. Renal US negative for hydro, left renal cyst noted. Creatinine level beginning to improve slightly, now 2.4 from 3.0 from 3.2. Continue IV fluids. Monitor renal function. Avoid nephrotoxic agents. Meds dosage based on GFR. 2. FEN: Metabolic acidosis, monitor. Hypocalcemia, monitor. Monitor lytes. 3. Acute hypoxic respiratory failure: Multifactorial etiology secondary to bilateral pneumonia, heart failure and pulmonary hypertension. Was extubated 10/29 and doing well since. Has been on BiPap PRN. Pulmonary following. 4. Bilateral pneumonia.: COVID-19 negative on 10/28/2019. 5. H/o HFpEF: S/p R & L cath 07/20. Appears compensated. ECHO pending. Cards following. 6. H/o schizoaffective disorder with depression. 7. Hypertension: BP elevated at time of exam, improved after am meds. Monitor BP. 8. Substance abuse. 9. Tobacco abuse. 10. H/o Afib: Cards following. S/p ablation in the past. Subjective Date of service: 10/31/19 Interval history: Patient was seen and examined at the bedside. She is alert, sitting up in bed talking on cell phone. She has no complaints at time of exam. No other events reported by staff. Objective - Exam Narrative Exam: General appearance: well-developed, well-nourished, appears stated age, no distress noted EENT: ATNC, PERRL, hearing intact Neck: neck supple, trachea midline Respiratory: Clear to Ascultation Heart: irregular rhythm, S1S2, no murmurs, tachycardic Gastrointestinal: normoactive bowel sounds, no tenderness, not distended Integumentary: no rash, warm and dry Neurologic: able to move all extremities, conversing appropriately Musculoskeletal: no edema noted : cabello catheter noted Psychiatric: cooperative, calm - Vital Signs Vital signs: Vital Signs - 12hr 10/30/19 10/30/19 10/31/19 22:04 23:12 02:22 Temperature 98.0 F Pulse Rate 78 60 Pulse Rate [ Bilateral] Pulse Rate [ 70 From Monitor] Respiratory 18 12 Rate Respiratory Rate [Bilateral ] Blood Pressure 160/64 198/66 O2 Sat by Pulse 94 94 Oximetry 10/31/19 10/31/19 10/31/19 03:44 04:00 08:00 Temperature 98.0 F Pulse Rate 71 77 Pulse Rate [ 77 Bilateral] Pulse Rate [ From Monitor] Respiratory 18 Rate Respiratory 18 Rate [Bilateral ] Blood Pressure 196/66 O2 Sat by Pulse 92 Oximetry 10/31/19 09:18 Temperature Pulse Rate Pulse Rate [ Bilateral] Pulse Rate [ From Monitor] Respiratory Rate Respiratory Rate [Bilateral ] Blood Pressure O2 Sat by Pulse 92 Oximetry - Lab 10/30/19 04:55 10/31/19 05:15 Most recent lab results ABG pH 7.414 pH Units (7.350-7.450) 10/30/19 04:15 ABG pCO2 33.9 mm Hg 10/30/19 04:15 ABG pO2 78.0 mm Hg (80.0-90.0) L 10/30/19 04:15 ABG HCO3 21.2 mmol/L (20.0-26.0) 10/30/19 04:15 ABG O2 Saturation 96.9 % (95.0-99.0) 10/30/19 04:15 Calcium 8.8 mg/dL (8.4-10.2) 10/31/19 05:15 Magnesium 3.20 mg/dL (1.7-2.3) H 10/28/19 05:11 Urine Creatinine 137.7 mg/dL (0.1-20.0) H 10/29/19 06:00 Urine Sodium 51 mmol/L 10/29/19 06:00 Medications & Allergies - Medications Allergies/Adverse Reactions: Allergies codeine Allergy (Verified 08/05/19 18:06) Rash Sulfa (Sulfonamide Antibiotics) Allergy (Verified 08/05/19 18:06) Rash lisinopril Adverse Reaction (Verified 08/05/19 18:06) Unknown Cough Home Medications: Home Medications Medication Instructions Recorded Confirmed Last Taken Type traZODone [Desyrel] 50 mg PO QHS 08/09/13 10/29/19 04/05/14 History Budesonide/Formoterol Fumarate 10.2 gm IH Q4H 03/10/19 10/29/19 03/10/19 History [Symbicort 160-4.5 Mcg Inhaler] Chlorpheniramine/Dextromethorp 1 each PO Q6HR 03/10/19 10/29/19 03/10/19 History [Cough-Cold Tablet] allopurinoL [Zyloprim] 100 mg PO QDAY 03/10/19 10/29/19 03/10/19 History methOCARBAMOL 500 mg PO Q6HR PRN 03/27/19 10/29/19 Unknown History AtorvaSTATin [Lipitor] 40 mg PO QHS #30 tablet 04/07/19 10/29/19 Unknown Rx Aspirin EC [Halfprin EC] 81 mg PO DAILY #30 tablet.dr 07/18/19 10/29/19 Unknown Rx Depakote ER 250 mg PO BID #14 07/18/19 10/29/19 Unknown Rx Fluticasone [Flonase] 100 mcg NS QDAY #1 bottle 07/18/19 10/29/19 Unknown Rx Oxybutynin [Ditropan] 5 mg PO DAILY #7 07/18/19 10/29/19 Unknown Rx Pantoprazole [Protonix TAB] 40 mg PO QDAY #30 07/18/19 10/29/19 Unknown Rx carvediloL [Coreg] 6.25 mg PO DAILY #60 07/18/19 10/29/19 Unknown Rx Aspirin [Aspirin BABY CHEW TAB] 81 mg PO QDAY #30 tab.chew 07/23/19 10/29/19 Unknown Rx Acetaminophen [Non-Aspirin Extra 500 mg PO Q6HR PRN #30 tablet 08/05/19 10/29/19 Unknown Rx Strength] Agnieszka Root [Agnieszka] 250 mg PO QID PRN #30 capsule 08/05/19 10/29/19 Unknown Rx Metoclopramide [Reglan] 10 mg PO QID PRN #30 tablet 08/05/19 10/29/19 Unknown Rx traMADoL [Ultram 50 MG tab] 50 mg PO Q6HR PRN #7 tablet 09/27/19 10/29/19 Unknown Rx Active Medications: Generic Name Dose Route Start Last Admin Trade Name Freq PRN Reason Stop Dose Admin Allopurinol 100 mg 10/29/19 10:00 10/30/19 09:49 Zyloprim PO 100 mg QDAY MARCIO Administration Lipase/Protease/Amylase 1 each 10/29/19 08:06 Pancreaze 10,500 Unit FEEDTUBE PRN PRN For Clogged Feeding Tube Arformoterol Tartrate 15 mcg 10/28/19 20:00 10/31/19 07:45 Brovana Nebu IH 15 mcg Q12HRT MARCIO Administration Aspirin 81 mg 10/29/19 10:00 10/30/19 09:50 Baby Aspirin PO 81 mg QDAY MARCIO Administration Atorvastatin Calcium 40 mg 10/28/19 22:00 10/30/19 22:04 Lipitor PO 40 mg QHS MARCIO Administration Budesonide 0.5 mg 10/28/19 20:00 10/31/19 07:45 Pulmicort IH 0.5 mg Q12HRT MARCIO Administration Carvedilol 6.25 mg 10/29/19 10:00 10/30/19 09:50 Coreg PO 6.25 mg DAILY MARCIO Administration Clonidine HCl 0.1 mg 10/30/19 14:00 10/30/19 22:04 Catapres PO 0.1 mg Q12HR MARCIO Administration Divalproex Sodium 250 mg 10/28/19 22:00 10/30/19 22:[address] PO 250 mg BID MARCIO Administration Enoxaparin Sodium 30 mg 10/29/19 10:00 10/30/19 09:49 Enoxaparin SUB-Q 30 mg QDAY [facility] Administration Hydralazine HCl 10 mg 10/30/19 10:27 10/30/19 10:30 Apresoline IV 10 mg Q6HR PRN Administration Blood Pressure Ceftriaxone Sodium 2 gm in 100 mls @ 200 mls/hr 10/29/19 10:00 10/30/19 10:25 Rocephin/Ns 2 Gm/100 Ml IV Infused Q24HR [facility] Infusion Protocol Azithromycin 500 mg/ Sodium 250 mls @ 250 mls/hr 10/29/19 10:00 10/30/19 11:00 Chloride IV Infused Q24HR [facility] Infusion Protocol Labetalol HCl 100 mg 10/30/19 14:00 10/30/19 22:04 Labetalol PO 100 mg BID MARCIO Administration Multi-Ingred Cream/Lotion/Oil/Oint 1 applic 10/28/19 04:57 Artificial Tears Ophth Oint OU Q4HR PRN Dry Eye(s) Ondansetron HCl 4 mg 10/30/19 14:12 10/30/19 14:31 Zofran IV 4 mg Q4H PRN Administration Nausea And Vomiting Oxybutynin Chloride 5 mg 10/29/19 10:00 10/30/19 09:50 Ditropan PO 5 mg DAILY MARCIO Administration Sodium Chloride 10 ml 10/28/19 22:00 10/30/19 22:04 Sodium Chloride Flush Syringe 10 Ml IV 10 ml BID MARCIO Administration Sodium Chloride 10 ml 10/28/19 11:46 Sodium Chloride Flush Syringe 10 Ml IV PRN PRN LINE FLUSH
[2019-10-31] MEDS: cloNIDine 0.1 MG TAB PO SCH ×2 (10:16→21:16)
[2019-10-31] MEDS: allopurinoL 100 MG TAB PO SCH (10:17)
[2019-10-31] MEDS: DIVALPROEX DR 250 MG TAB PO SCH ×2 (10:17→21:16)
[2019-10-31] MEDS: ENOXAPARIN 30 MG/0.3 ML INJ SUB-Q SCH (10:17)
[2019-10-31] MEDS: carvediloL 6.25 MG TAB PO SCH (10:17)
[2019-10-31] MEDS: ASPIRIN 81 MG TAB CHEW PO SCH (10:17)
[2019-10-31] MEDS: cefTRIAXone/NS 2 GM/100 ML 2 GM/100 ML BAG IV SCH (10:18)
[2019-10-31] MEDS: AZITHROMYCIN 500 MG in SODIUM CHLORIDE 0.9% 250ML 250 ML IV SCH (10:18)
[2019-10-31] MEDS: OXYBUTYNIN 5 MG TAB PO SCH (11:00)
--- NOTE | 2019-10-31 11:39 | Progress Note ---
Assessment and Plan - Patient Problems (1) CHF exacerbation Current Visit: No Status: Acute Plan to address problem: Heart failure with a preserved ejection fraction /[facility] 07/2019: moderate -severe pulmonary HTN, PASP 60. No significant aortic stenosis. Normal coronaries, LVEF 45%. Echocardiogram has been ordered for reassessment of left ventricular function. (2) Paroxysmal atrial fibrillation Current Visit: No Status: Acute Plan to address problem: status post atrial fibrillation ablation done while she lived in [place] year ago. sinus rhythm on telemetry. Subjective Date of service: 10/31/19 Interval history: Patient complains of musculoskeletal chest pain. Objective Vital Signs Temp Pulse Pulse Pulse Resp Resp BP 10/31/19 10:17 77 196/66 10/31/19 10:16 196/66 10/31/19 09:18 10/31/19 08:00 77 18 10/31/19 04:00 77 10/31/19 03:44 98.0 F 71 18 196/66 10/31/19 02:22 70 12 10/30/19 23:12 98.0 F 60 18 198/66 10/30/19 22:04 78 160/64 10/30/19 21:15 10/30/19 21:13 78 20 10/30/19 18:54 18 160/64 10/30/19 18:52 81 18 177/64 10/30/19 17:00 174/93 10/30/19 16:30 72 12 153/62 10/30/19 16:00 98.7 F 70 70 12 103/49 10/30/19 15:30 71 11 L 115/43 10/30/19 15:00 82 11 L 115/44 10/30/19 14:32 99 H 215/88 10/30/19 14:31 102 H 12 152/60 10/30/19 14:07 110 H 215/88 10/30/19 14:00 111 H 13 215/88 10/30/19 13:30 98 H 13 199/75 10/30/19 13:00 97 H 13 191/65 10/30/19 12:30 95 H 10 L 185/61 10/30/19 12:01 103 H 15 175/55 10/30/19 12:00 98.2 F 89 89 19 175/55 Pulse Ox 10/31/19 10:17 10/31/19 10:16 10/31/19 09:18 92 10/31/19 08:00 10/31/19 04:00 10/31/19 03:44 92 10/31/19 02:22 94 10/30/19 23:12 94 10/30/19 22:04 10/30/19 21:15 100 10/30/19 21:13 10/30/19 18:54 10/30/19 18:52 98 10/30/19 17:00 10/30/19 16:30 94 10/30/19 16:00 94 10/30/19 15:30 94 10/30/19 15:00 93 10/30/19 14:32 10/30/19 14:31 93 10/30/19 14:07 10/30/19 14:00 92 10/30/19 13:30 94 10/30/19 13:00 96 10/30/19 12:30 96 10/30/19 12:01 95 10/30/19 12:00 95 - Physical Examination General: No Apparent Distress HEENT: Positive: PERRL Cardiac: Positive: Reg Rate and Rhythm Neuro: Positive: Grossly Intact Extremities: Absent: edema - Labs and Meds Comprehensive Metabolic Panel 10/31/19 Range/Units 05:15 Sodium 144 (137-145) mmol/L Potassium 4.4 (3.6-5.0) mmol/L Chloride 104.9 (98-107) mmol/L Carbon Dioxide 22 (22-30) mmol/L BUN 34 H (7-17) mg/dL Creatinine 2.4 H (0.7-1.2) mg/dL Glucose 92 (65-100) mg/dL Calcium 8.8 (8.4-10.2) mg/dL
--- NOTE | 2019-10-31 13:34 | Progress Note ---
Assessment and Plan Assessment and plan: Acute hypoxemic respiratory failure due to CHF exacerbation Acute on chronic diastolic heart failure. Echocardiogram completed 02/2019 revealed normal EF 60% with mild dilatation of the left atrium, and mild calcific aortic stenosis R/LHC 07/2019 revealed moderate severe pulmonary hypertension, PASP 60. No significant aortic stenosis, normal coronary arteries and LVEF of 45%. Acute pulm edema. as per ID, CXR most likely CHF and not pneumonia. Pneumonia ruled out Sepsis ruled out Paroxysmal atrial fibrillation. Cardiology following Chronic kidney disease III. Nephrology consulted Hypertension. Resume antihypertensive medications as needed. Schizoaffective disorder with depression. 10/29/2019. Patient currently with AC/PRVC mode ventilation with rate 20, tidal volume 450, FiO2 28% and PEEP of 6. Continue SBT per pulmonary. Continue bronchodilators/nebulizers. Continue IV antibiotics. Patient currently with Versed for sedation. Continue diuresis per cardiology/nephrology andreina mmendations. Echocardiogram pending. 10/30/2019. Patient with Versed and fentanyl. Wean sedation. Patient currently on mechanical ventilation AC/PRVC mode ventilation with rate 20, tidal volume 450, FiO2 28% and PEEP of 6 but plans to extubate today. I discussed the case with pulmonary. Consider transfer to the floor after extubation. Creatinine at 3.0 today. 10/31/2019 Patient with acute resp failure, was intubated, now extubated. patient has acute on chronic diastolic CHF. She feels better, less shortness of breath. On Oxygen by NC. History Interval history: Patient with acute resp failure, was intubated, now extubated Less shortness of breath Hospitalist Physical - Physical exam Narrative exam: GEN: Not in acute distress, lying in bed HEENT: Normocephalic, atraumatic, Neck: supple, No JVD Lungs: Clear to auscultation bilaterally, heart;S1 and S2 reg, no murmurs, rubs or gallop Abd:soft, non tender, non distended, normal bowel sounds, Ext: No edema, no clubbing, no cyanosis, Neuro: Awake,alert,oriented X3 , no focal signs, - Constitutional Vitals: Temp Pulse Resp BP Pulse Ox 98.0 F 77 18 196/66 92 10/31/19 03:44 10/31/19 10:17 10/31/19 08:00 10/31/19 10:17 10/31/19 09:18 General appearance: Present: no acute distress, other (on vent) HEART Score - HEART Score Troponin: Troponin T < 0.010 ng/mL (0.00-0.029) 10/28/19 03:56 Results - Labs CBC & Chem 7: 10/30/19 04:55 11/01/19 04:39 Labs: Laboratory Last Values WBC 7.8 K/mm3 (4.5-11.0) 10/30/19 04:55 RBC 3.25 M/mm3 (3.65-5.03) L 10/30/19 04:55 Hgb 9.1 gm/dl (10.1-14.3) L 10/30/19 04:55 Hct 28.0 % (30.3-42.9) L 10/30/19 04:55 MCV 86 fl (79-97) 10/30/19 04:55 MCH 28 pg (28-32) 10/30/19 04:55 MCHC 33 % (30-34) 10/30/19 04:55 RDW 17.2 % (13.2-15.2) H 10/30/19 04:55 Plt Count 255 K/mm3 (140-440) 10/30/19 04:55 Lymph % (Auto) 25.0 % (13.4-35.0) 10/30/19 04:55 Swift % (Auto) 9.2 % (0.0-7.3) H 10/30/19 04:55 Eos % (Auto) 0.8 % (0.0-4.3) 10/30/19 04:55 Baso % (Auto) 0.5 % (0.0-1.8) 10/30/19 04:55 Lymph # 1.9 K/mm3 (1.2-5.4) 10/30/19 04:55 Swift # 0.7 K/mm3 (0.0-0.8) 10/30/19 04:55 Eos # 0.1 K/mm3 (0.0-0.4) 10/30/19 04:55 Baso # 0.0 K/mm3 (0.0-0.1) 10/30/19 04:55 Add Manual Diff Complete 10/28/19 03:56 Total Counted 100 10/28/19 03:56 Seg Neutrophils % 64.5 % (40.0-70.0) 10/30/19 04:55 Seg Neuts % (Manual) 59.0 % (40.0-70.0) 10/28/19 03:56 Band Neutrophils % 0 % 10/28/19 03:56 Lymphocytes % (Manual) 30.0 % (13.4-35.0) 10/28/19 03:56 Reactive Lymphs % (Man) 0 % 10/28/19 03:56 Monocytes % (Manual) 5.0 % (0.0-7.3) 10/28/19 03:56 Eosinophils % (Manual) 5.0 % (0.0-4.3) H 10/28/19 03:56 Basophils % (Manual) 1.0 % (0.0-1.8) 10/28/19 03:56 Metamyelocytes % 0 % 10/28/19 03:56 Myelocytes % 0 % 10/28/19 03:56 Promyelocytes % 0 % 10/28/19 03:56 Blast Cells % 0 % 10/28/19 03:56 Nucleated RBC % Not Reportable 10/28/19 03:56 Seg Neutrophils # 5.0 K/mm3 (1.8-7.7) 10/30/19 04:55 Seg Neutrophils # Man 5.2 K/mm3 (1.8-7.7) 10/28/19 03:56 Band Neutrophils # 0.0 K/mm3 10/28/19 03:56 Lymphocytes # (Manual) 2.6 K/mm3 (1.2-5.4) 10/28/19 03:56 Abs React Lymphs (Man) 0.0 K/mm3 10/28/19 03:56 Monocytes # (Manual) 0.4 K/mm3 (0.0-0.8) 10/28/19 03:56 Eosinophils # (Manual) 0.4 K/mm3 (0.0-0.4) 10/28/19 03:56 Basophils # (Manual) 0.1 K/mm3 (0.0-0.1) 10/28/19 03:56 Metamyelocytes # 0.0 K/mm3 10/28/19 03:56 Myelocytes # 0.0 K/mm3 10/28/19 03:56 Promyelocytes # 0.0 K/mm3 10/28/19 03:56 Blast Cells # 0.0 K/mm3 10/28/19 03:56 WBC Morphology Not Reportable 10/28/19 03:56 Hypersegmented Neuts Not Reportable 10/28/19 03:56 Hyposegmented Neuts Not Reportable 10/28/19 03:56 Hypogranular Neuts Not Reportable 10/28/19 03:56 Smudge Cells Not Reportable 10/28/19 03:56 Toxic Granulation Not Reportable 10/28/19 03:56 Toxic Vacuolation Not Reportable 10/28/19 03:56 Dohle Bodies Not Reportable 10/28/19 03:56 Pelger-Huet Anomaly Not Reportable 10/28/19 03:56 Guy Rods Not Reportable 10/28/19 03:56 Platelet Estimate Consistent w auto 10/28/19 03:56 Clumped Platelets Not Reportable 10/28/19 03:56 Plt Clumps, EDTA Not Reportable 10/28/19 03:56 Large Platelets Not Reportable 10/28/19 03:56 Giant Platelets Not Reportable 10/28/19 03:56 Platelet Satelliting Not Reportable 10/28/19 03:56 Plt Morphology Comment Not Reportable 10/28/19 03:56 RBC Morphology Not Reportable 10/28/19 03:56 Dimorphic RBCs Not Reportable 10/28/19 03:56 Polychromasia Not Reportable 10/28/19 03:56 Hypochromasia Not Reportable 10/28/19 03:56 Poikilocytosis Not Reportable 10/28/19 03:56 Anisocytosis Not Reportable 10/28/19 03:56 Microcytosis Not Reportable 10/28/19 03:56 Macrocytosis Not Reportable 10/28/19 03:56 Spherocytes Not Reportable 10/28/19 03:56 Pappenheimer Bodies Not Reportable 10/28/19 03:56 Sickle Cells Not Reportable 10/28/19 03:56 Target Cells Not Reportable 10/28/19 03:56 Tear Drop Cells Not Reportable 10/28/19 03:56 Ovalocytes Not Reportable 10/28/19 03:56 Helmet Cells Not Reportable 10/28/19 03:56 [place] Bodies Not Reportable 10/28/19 03:56 Garfield Rings Not Reportable 10/28/19 03:56 [place] Cells Not Reportable 10/28/19 03:56 Bite Cells Not Reportable 10/28/19 03:56 Crenated Cell Not Reportable 10/28/19 03:56 Elliptocytes Not Reportable 10/28/19 03:56 Acanthocytes (Spur) Not Reportable 10/28/19 03:56 Rouleaux Not Reportable 10/28/19 03:56 Hemoglobin C Crystals Not Reportable 10/28/19 03:56 Schistocytes Not Reportable 10/28/19 03:56 Malaria parasites Not Reportable 10/28/19 03:56 Stefan Bodies Not Reportable 10/28/19 03:56 Hem Pathologist Commnt No 10/28/19 03:56 PT 14.7 Sec. (12.2-14.9) 10/28/19 03:56 INR 1.14 (0.87-1.13) H 10/28/19 03:56 D-Dimer 966.63 ng/mlDDU (0-234) H 10/28/19 12:41 ABG pH 7.414 pH Units (7.350-7.450) 10/30/19 04:15 ABG pCO2 33.9 mm Hg 10/30/19 04:15 ABG pO2 78.0 mm Hg (80.0-90.0) L 10/30/19 04:15 ABG HCO3 21.2 mmol/L (20.0-26.0) 10/30/19 04:15 ABG O2 Saturation 96.9 % (95.0-99.0) 10/30/19 04:15 ABG O2 Content 14.5 (0.0-44) 10/30/19 04:15 ABG Base Excess -2.8 mmol/L (-2.0-3.0) L 10/30/19 04:15 ABG Hemoglobin 10.8 gm/dl (12.0-16.0) L 10/30/19 04:15 ABG Carboxyhemoglobin 1.9 % (0.0-5.0) 10/30/19 04:15 ABG Methemoglobin 0.4 % (0.0-1.5) 10/30/19 04:15 Oxyhemoglobin 94.7 % (95.0-99.0) L 10/30/19 04:15 FiO2 28 % 10/30/19 04:15 Sodium 144 mmol/L (137-145) 10/31/19 05:15 Potassium 4.4 mmol/L (3.6-5.0) 10/31/19 05:15 Chloride 104.9 mmol/L (98-107) 10/31/19 05:15 Carbon Dioxide 22 mmol/L (22-30) 10/31/19 05:15 Anion Gap 22 mmol/L 10/31/19 05:15 BUN 34 mg/dL (7-17) H 10/31/19 05:15 Creatinine 2.4 mg/dL (0.7-1.2) H 10/31/19 05:15 Estimated GFR 25 ml/min 10/31/19 05:15 BUN/Creatinine Ratio 14 % 10/31/19 05:15 Glucose 92 mg/dL (65-100) 10/31/19 05:15 POC Glucose 93 (70-105) 10/29/19 17:22 Lactic Acid 1.50 mmol/L (0.7-2.0) 10/28/19 08:08 Calcium 8.8 mg/dL (8.4-10.2) 10/31/19 05:15 Magnesium 3.20 mg/dL (1.7-2.3) H 10/28/19 05:11 Ferritin 34.3 ng/mL (13.0-400.0) 10/28/19 12:41 Total Bilirubin 0.20 mg/dL (0.1-1.2) 10/28/19 05:11 AST 169 units/L (5-40) H 10/28/19 05:11 ALT 83 units/L (7-56) H 10/28/19 05:11 Alkaline Phosphatase 210 units/L (35-129) H 10/28/19 05:11 Lactate Dehydrogenase 307 units/L (91-180) H 10/28/19 12:41 Troponin T < 0.010 ng/mL (0.00-0.029) 10/28/19 03:56 C-Reactive Protein 2.60 mg/dL (0.00-1.30) H 10/28/19 12:41 NT-Pro-B Natriuret Pep 85716 pg/mL (0-900) H 10/28/19 05:11 Total Protein 7.1 g/dL (6.3-8.2) 10/28/19 05:11 Albumin 3.7 g/dL (3.9-5) L 10/28/19 05:11 Albumin/Globulin Ratio 1.1 % 10/28/19 05:11 Procalcitonin 0.63 ng/mL (<0.15) 10/28/19 12:41 Urine Color Straw (Yellow) 10/28/19 10:56 Urine Turbidity Slightly-cloudy (Clear) 10/28/19 10:56 Urine pH 5.0 (5.0-7.0) 10/28/19 10:56 Ur Specific [place] 1.008 (1.003-1.030) 10/28/19 10:56 Urine Protein <15 mg/dl mg/dL (Negative) 10/28/19 10:56 Urine Glucose (UA) Neg mg/dL (Negative) 10/28/19 10:56 Urine Ketones Neg mg/dL (Negative) 10/28/19 10:56 Urine Blood Neg (Negative) 10/28/19 10:56 Urine Nitrite Neg (Negative) 10/28/19 10:56 Urine Bilirubin Neg (Negative) 10/28/19 10:56 Urine Urobilinogen < 2.0 mg/dL (<2.0) 10/28/19 10:56 Ur Leukocyte Esterase Neg (Negative) 10/28/19 10:56 Urine WBC (Auto) 2.0 /HPF (0.0-6.0) 10/28/19 10:56 Urine RBC (Auto) < 1.0 /HPF (0.0-6.0) 10/28/19 10:56 U Epithel Cells (Auto) 1.0 /HPF (0-13.0) 10/28/19 10:56 Urine Mucus Few /HPF 10/28/19 10:56 Urine Creatinine 137.7 mg/dL (0.1-20.0) H 10/29/19 06:00 Urine Sodium 51 mmol/L 10/29/19 06:00 Urine Opiates Screen Presumptive negative 10/29/19 18:15 Urine Methadone Screen Presumptive negative 10/29/19 18:15 Ur Barbiturates Screen Presumptive negative 10/29/19 18:15 Ur Phencyclidine Scrn Presumptive negative 10/29/19 18:15 Ur Amphetamines Screen Presumptive negative 10/29/19 18:15 U Benzodiazepines Scrn Presumptive positive 10/29/19 18:15 Urine Cocaine Screen Presumptive positive 10/29/19 18:15 U Marijuana (THC) Screen Presumptive negative 10/29/19 18:15 Drugs of Abuse Note Disclamer 10/29/19 18:15 Coronavirus (PCR) Negative (Negative) 10/29/19 09:50 Microbiology: Microbiology 10/28/19 05:11 Peripheral/Venous Blood Culture - Preliminary NO GROWTH AFTER 72 HOURS 10/28/19 05:11 Peripheral/Venous Blood Culture - Preliminary NO GROWTH AFTER 72 HOURS 10/28/19 04:57 Tracheal Aspirate Sputum Culture - Preliminary Stauffer/IV: Voiding Method Indwelling Catheter IV Catheter Type [Left Hand] INT / Saline Lock IV Catheter Type [Right Hand] INT / Saline Lock IV Catheter Type [Right Peripheral IV Antecubital] Active Medications - Current Medications Current Medications: Generic Name Dose Route Start Last Admin Trade Name Freq PRN Reason Stop Dose Admin Allopurinol 100 mg 10/29/19 10:00 10/31/19 10:17 Zyloprim PO 100 mg QDAY MARCIO Administration Lipase/Protease/Amylase 1 each 10/29/19 08:06 Pancrecollins [place] 10,500 Unit FEEDTUBE PRN PRN For Clogged Feeding Tube Arformoterol Tartrate 15 mcg 10/28/19 20:00 10/31/19 07:45 Brovana Nebu IH 15 mcg Q12HRT MARCIO Administration Aspirin 81 mg 10/29/19 10:00 10/31/19 10:17 Baby Aspirin PO 81 mg QDAY MARCIO Administration Atorvastatin Calcium 40 mg 10/28/19 22:00 10/30/19 22:04 Lipitor PO 40 mg QHS MARCIO Administration Budesonide 0.5 mg 10/28/19 20:00 10/31/19 07:45 Pulmicort IH 0.5 mg Q12HRT MARCIO Administration Carvedilol 6.25 mg 10/29/19 10:00 10/31/19 10:17 Coreg PO 6.25 mg DAILY MARCIO Administration Clonidine HCl 0.1 mg 10/30/19 14:00 10/31/19 10:16 Catapres PO 0.1 mg Q12HR MARCIO Administration Divalproex Sodium 250 mg 10/28/19 22:00 10/31/19 10:[address] PO 250 mg BID MARCIO Administration Enoxaparin Sodium 30 mg 10/29/19 10:00 10/31/19 10:17 Enoxaparin SUB-Q Not Given QDAY MARCIO Hydralazine HCl 10 mg 10/30/19 10:27 10/30/19 10:30 Apresoline IV 10 mg Q6HR PRN Administration Blood Pressure Labetalol HCl 100 mg 10/30/19 14:00 10/31/19 10:17 Labetalol PO 100 mg BID MARCIO Administration Multi-Ingred Cream/Lotion/Oil/Oint 1 applic 10/28/19 04:57 Artificial Tears Ophth Oint OU Q4HR PRN Dry Eye(s) Ondansetron HCl 4 mg 10/30/19 14:12 10/30/19 14:31 Zofran IV 4 mg Q4H PRN Administration Nausea And Vomiting Oxybutynin Chloride 5 mg 10/29/19 10:00 10/30/19 09:50 Ditropan PO 5 mg DAILY MARCIO Administration Pantoprazole Sodium 40 mg 10/31/19 12:00 Protonix PO QDAY MARCIO Sodium Chloride 10 ml 10/28/19 22:00 10/31/19 10:18 Sodium Chloride Flush Syringe 10 Ml IV 10 ml BID MARCIO Administration Sodium Chloride 10 ml 10/28/19 11:46 Sodium Chloride Flush Syringe 10 Ml IV PRN PRN LINE FLUSH Nutrition/Malnutrition Assess - Dietary Evaluation Nutrition/Malnutrition Findings: Nutrition Notes Start: 10/29/19 07:58 Freq: Status: Active Protocol: Document 10/29/19 07:58 LM (Rec: 10/29/19 08:06 LM [email or web address]) Nutrition Notes Need for Assessment generated from: MD Order Initial or Follow up Assessment Current Diagnosis CKD(stage I-IV),COPD, Hypertension,Heart Failure Other Pertinent Diagnosis R/O COVID-19, pneu, tobacco/ cocaine dependence, schizophrenia, depression Current Diet no diet Labs/Tests BUN 41 Cr 3.2 Pertinent Medications Reviewed Height 5 ft 4 in Weight 69.8 kg [place] Body Weight (kg) 54.54 BMI 26.4 Weight Status Overweight Subjective/Other Information MD consult to evaluate nutritional intake and for TF. RN screen for MST. Pt is on the vent. Burn Absent Trauma Absent Current % PO Negligible Minimum of two criteria No physical signs of malnutrition #1 Nutrition Diagnosis Inadequate oral intake Etiology mechanical vent As Evidenced by Signs and Symptoms Pt unable to consume PO Is patient on ventilator? Yes Is Patient Ambulatory and/or Out of Bed No REE-([facility]-confined to bed) 1490.808 Calculation Used for Recommendations [facility] Additional Notes Protein: 84-140g (1.2-2g/kg) Fluid: 1ml/kcal Nutrition Intervention Change Diet Order: TF Nutrition Support: Osmolite 1.5 at 40ml/hr Flush 120ml q4h Kcal 1,440 Protein (gm) 60 Fluid (mL) 732 Goal #1 TF start/tolerance Anticipated Discharge Needs: unable to determine at this time Follow-Up By: 10/31/19 Additional Comments F/U for TF start/tolerance
[2019-10-31] MEDS: ACETAMINOPHEN 325 MG TAB PO PRN ×2 (16:36→21:17)
[2019-10-31] MEDS: PANTOPRAZOLE 40 MG TAB PO SCH (18:06)
[2019-11-01] MEDS: ACETAMINOPHEN 325 MG TAB PO PRN ×2 (03:54→11:17)
[2019-11-01] MEDS ORDERED: diphenhydrAMINE 50 MG/ML VIAL IV ONE (05:00)
[2019-11-01 05:46] LABS: Calcium 8.7 mg/dL (8.4-10.2)
[2019-11-01 07:54] VITALS: BP 133/46
[2019-11-01] MEDS: ARFORMOTEROL 15 MCG/2 ML NEBU IH SCH (08:47)
[2019-11-01] MEDS: BUDESONIDE 0.5 MG/2 ML NEBU IH SCH (08:47)
[2019-11-01] MEDS: carvediloL 6.25 MG TAB PO SCH (09:05)
[2019-11-01] MEDS: cloNIDine 0.1 MG TAB PO SCH (09:05)
[2019-11-01] MEDS: allopurinoL 100 MG TAB PO SCH (09:05)
[2019-11-01] MEDS: PANTOPRAZOLE 40 MG TAB PO SCH (09:05)
[2019-11-01] MEDS: DIVALPROEX DR 250 MG TAB PO SCH (09:05)
[2019-11-01] MEDS: ASPIRIN 81 MG TAB CHEW PO SCH (09:06)
[2019-11-01] MEDS: ENOXAPARIN 30 MG/0.3 ML INJ SUB-Q SCH (09:06)
[2019-11-01] MEDS: OXYBUTYNIN 5 MG TAB PO SCH (09:06)
--- NOTE | 2019-11-01 10:10 | Progress Note ---
Assessment and Plan - Patient Problems (1) CHF exacerbation Current Visit: No Status: Acute Plan to address problem: Heart failure with a preserved ejection fraction /[facility] 07/2019: moderate -severe pulmonary HTN, PASP 60. No significant aortic stenosis. Normal coronaries, LVEF 45%. Echocardiogram this presentation shows atrial enlargement. There is moderate pulmonary hypertension, RVSP 55 mmHG. LVEF 55-60%. Continue optimal blood pressure management. Advised sodium and fluid restriction. (2) Paroxysmal atrial fibrillation Current Visit: No Status: Acute Plan to address problem: status post atrial fibrillation ablation done while she lived in [place] year ago. sinus rhythm on telemetry. Subjective Date of service: 11/01/19 Interval history: No interval cardiac change. Objective Vital Signs Temp Pulse Pulse Pulse Resp Resp BP 11/01/19 09:05 63 133/46 11/01/19 08:49 61 18 11/01/19 07:47 97.7 F 63 20 133/46 11/01/19 04:00 57 L 11/01/19 03:55 98.3 F 53 L 18 152/48 11/01/19 03:54 20 11/01/19 00:00 57 L 10/31/19 23:48 70 12 10/31/19 23:18 98.1 F 66 18 166/56 10/31/19 21:19 10/31/19 21:17 22 10/31/19 21:16 57 L 146/50 10/31/19 21:00 76 18 10/31/19 20:14 99.0 F 57 L 18 146/50 10/31/19 20:00 57 L 10/31/19 17:15 97.9 F 58 L 18 157/59 10/31/19 14:22 70 12 10/31/19 12:17 97.8 F 68 18 117/49 10/31/19 10:17 77 196/66 10/31/19 10:16 196/66 Pulse Ox 11/01/19 09:05 11/01/19 08:49 99 11/01/19 07:47 99 11/01/19 04:00 11/01/19 03:55 95 11/01/19 03:54 11/01/19 00:00 10/31/19 23:48 94 10/31/19 23:18 90 10/31/19 21:19 90 10/31/19 21:17 10/31/19 21:16 10/31/19 21:00 10/31/19 20:14 94 10/31/19 20:00 10/31/19 17:15 95 10/31/19 14:22 94 10/31/19 12:17 98 10/31/19 10:17 10/31/19 10:16 - Physical Examination General: No Apparent Distress HEENT: Positive: PERRL Neck: Positive: trachea midline Cardiac: Positive: Reg Rate and Rhythm Lungs: Positive: Decreased Breath Sounds Neuro: Positive: Grossly Intact Extremities: Absent: edema - Labs and Meds Comprehensive Metabolic Panel 11/01/19 Range/Units 04:39 Sodium 140 (137-145) mmol/L Potassium 4.7 (3.6-5.0) mmol/L Chloride 101.3 (98-107) mmol/L Carbon Dioxide 23 (22-30) mmol/L BUN 26 H (7-17) mg/dL Creatinine 2.2 H (0.7-1.2) mg/dL Glucose 94 (65-100) mg/dL Calcium 8.7 (8.4-10.2) mg/dL
--- NOTE | 2019-11-01 11:46 | Progress Note ---
Assessment and Plan 1. Acute kidney injury: Likely vasomotor Acute kidney injury superimposed on CKD stage 3 in the setting of hypotension and respiratory failure. UA is bland. Renal US negative for hydro, left renal cyst noted. Creatinine level beginning to improve slightly, now 2.2 from 2.4 from 3.0 from 3.2. Continue IV fluids. Monitor renal function. Avoid nephrotoxic agents. Meds dosage based on GFR. 2. FEN: Metabolic acidosis, monitor. Hypocalcemia, monitor. Monitor lytes. 3. Acute hypoxic respiratory failure: Multifactorial etiology secondary to bilateral pneumonia, heart failure and pulmonary hypertension. Was extubated 10/29 and doing well since. Has been on BiPap PRN. Pulmonary following. 4. Bilateral pneumonia.: COVID-19 negative on 10/28/2019. 5. H/o HFpEF: S/p R & L cath 07/20. Appears compensated. ECHO pending. Cards following. 6. H/o schizoaffective disorder with depression. 7. Hypertension: BP is better today. Monitor BP. 8. Substance abuse. 9. Tobacco abuse. 10. H/o Afib: Cards following. S/p ablation in the past. Plan is for pt to d/c today, she should f/u with us in 1-2 weeks. Subjective Date of service: 11/01/19 Interval history: Patient was seen and examined at the bedside. She is alert, sitting up in bed eating lunch. She has no complaints at time of exam. No other events reported by staff. Objective - Exam Narrative Exam: General appearance: well-developed, well-nourished, appears stated age, no distress noted EENT: ATNC, PERRL, hearing intact Neck: neck supple, trachea midline Respiratory: Clear to Ascultation Heart: irregular rhythm, S1S2, no murmurs, tachycardic Gastrointestinal: normoactive bowel sounds, no tenderness, not distended Integumentary: no rash, warm and dry Neurologic: able to move all extremities, conversing appropriately Musculoskeletal: no edema noted Psychiatric: cooperative, calm - Vital Signs Vital signs: Vital Signs - 12hr 10/31/19 11/01/19 11/01/19 23:48 00:00 03:54 Temperature Pulse Rate 57 L Pulse Rate [ Bilateral] Pulse Rate [ 70 From Monitor] Respiratory 12 20 Rate Respiratory Rate [Bilateral ] Blood Pressure O2 Sat by Pulse 94 Oximetry 11/01/19 11/01/19 11/01/19 03:55 04:00 07:47 Temperature 98.3 F 97.7 F Pulse Rate 53 L 57 L 63 Pulse Rate [ Bilateral] Pulse Rate [ From Monitor] Respiratory 18 20 Rate Respiratory Rate [Bilateral ] Blood Pressure 152/48 133/46 O2 Sat by Pulse 95 99 Oximetry 11/01/19 11/01/19 11/01/19 08:49 09:05 11:00 Temperature Pulse Rate 63 Pulse Rate [ 61 Bilateral] Pulse Rate [ 70 From Monitor] Respiratory 12 Rate Respiratory 18 Rate [Bilateral ] Blood Pressure 133/46 O2 Sat by Pulse 99 94 Oximetry - Lab 10/30/19 04:55 11/01/19 04:39 Most recent lab results ABG pH 7.414 pH Units (7.350-7.450) 10/30/19 04:15 ABG pCO2 33.9 mm Hg 10/30/19 04:15 ABG pO2 78.0 mm Hg (80.0-90.0) L 10/30/19 04:15 ABG HCO3 21.2 mmol/L (20.0-26.0) 10/30/19 04:15 ABG O2 Saturation 96.9 % (95.0-99.0) 10/30/19 04:15 Calcium 8.7 mg/dL (8.4-10.2) 11/01/19 04:39 Magnesium 3.20 mg/dL (1.7-2.3) H 10/28/19 05:11 Urine Creatinine 137.7 mg/dL (0.1-20.0) H 10/29/19 06:00 Urine Sodium 51 mmol/L 10/29/19 06:00 Medications & Allergies - Medications Allergies/Adverse Reactions: Allergies codeine Allergy (Verified 08/05/19 18:06) Rash Sulfa (Sulfonamide Antibiotics) Allergy (Verified 08/05/19 18:06) Rash lisinopril Adverse Reaction (Verified 08/05/19 18:06) Unknown Cough Home Medications: Home Medications Medication Instructions Recorded Confirmed Last Taken Type traZODone [Desyrel] 50 mg PO QHS 08/09/13 10/29/19 04/05/14 History Budesonide/Formoterol Fumarate 10.2 gm IH Q4H 10/04/1810/29/19 03/10/19 History [Symbicort 160-4.5 Mcg Inhaler] Chlorpheniramine/Dextromethorp 1 each PO Q6HR 03/10/19 10/29/19 03/10/19 History [Cough-Cold Tablet] allopurinoL [Zyloprim] 100 mg PO QDAY 03/10/19 10/29/19 03/10/19 History methOCARBAMOL 500 mg PO Q6HR PRN 03/27/19 10/29/19 Unknown History AtorvaSTATin [Lipitor] 40 mg PO QHS #30 tablet 04/07/19 10/29/19 Unknown Rx Aspirin EC [Halfprin EC] 81 mg PO DAILY #30 tablet. 07/18/19 10/29/19 Unknown Rx Depakote ER 250 mg PO BID #14 07/18/19 10/29/19 Unknown Rx Fluticasone [Flonase] 100 mcg NS QDAY #1 bottle 07/18/19 10/29/19 Unknown Rx Oxybutynin [Ditropan] 5 mg PO DAILY #7 07/18/19 10/29/19 Unknown Rx Pantoprazole [Protonix TAB] 40 mg PO QDAY #30 07/18/19 10/29/19 Unknown Rx carvediloL [Coreg] 6.25 mg PO DAILY #60 07/18/19 10/29/19 Unknown Rx Aspirin [Aspirin BABY CHEW TAB] 81 mg PO QDAY #30 tab.chew 07/23/19 10/29/19 Unknown Rx Acetaminophen [Non-Aspirin Extra 500 mg PO Q6HR PRN #30 tablet 08/05/19 10/29/19 Unknown Rx Strength] Agnieszka Root [Agnieszka] 250 mg PO QID PRN #30 capsule 08/05/19 10/29/19 Unknown Rx Metoclopramide [Reglan TAB] 10 mg PO QID PRN #30 tablet 08/05/19 10/29/19 Unknown Rx traMADoL [Ultram 50 MG tab] 50 mg PO Q6HR PRN #7 tablet 09/27/19 10/29/19 Unknown Rx cloNIDine [Catapres] 0.1 mg PO Q12HR #60 tablet 11/01/19 Unknown Rx Active Medications: Generic Name Dose Route Start Last Admin Trade Name Freq PRN Reason Stop Dose Admin Acetaminophen 650 mg 10/31/19 16:20 11/01/19 11:17 Tylenol PO 650 mg Q6H PRN Administration Pain, Mild (1-3) Allopurinol 100 mg 10/29/19 10:00 11/01/19 09:05 Zyloprim PO 100 mg QDAY MARCIO Administration Lipase/Protease/Amylase 1 each 10/29/19 08:06 Devin Grissom 10,500 Unit FEEDTUBE PRN PRN For Clogged Feeding Tube Arformoterol Tartrate 15 mcg 10/28/19 20:00 11/01/19 08:47 Brovana Nebu IH 15 mcg Q12HRT MARCIO Administration Aspirin 81 mg 10/29/19 10:00 11/01/19 09:06 Baby Aspirin PO 81 mg QDAY MARCIO Administration Atorvastatin Calcium 40 mg 10/28/19 22:00 10/31/19 21:15 Lipitor PO 40 mg QHS MARCIO Administration Budesonide 0.5 mg 10/28/19 20:00 11/01/19 08:47 Pulmicort IH 0.5 mg Q12HRT MARCIO Administration Carvedilol 6.25 mg 10/29/19 10:00 11/01/19 09:05 Coreg PO 6.25 mg DAILY MARCIO Administration Clonidine HCl 0.1 mg 10/30/19 14:00 11/01/19 09:05 Catapres PO 0.1 mg Q12HR MARCIO Administration Divalproex Sodium 250 mg 10/28/19 22:00 11/01/19 09:[address] PO 250 mg BID MARCIO Administration Enoxaparin Sodium 30 mg 10/29/19 10:00 11/01/19 09:06 Enoxaparin SUB-Q Not Given QDAY MARCIO Hydralazine HCl 10 mg 10/30/19 10:27 10/30/19 10:30 Apresoline IV 10 mg Q6HR PRN Administration Blood Pressure Labetalol HCl 100 mg 10/30/19 14:00 11/01/19 09:05 Labetalol PO 100 mg BID MARCIO Administration Multi-Ingred Cream/Lotion/Oil/Oint 1 applic 10/28/19 04:57 Artificial Tears Ophth Oint OU Q4HR PRN Dry Eye(s) Ondansetron HCl 4 mg 10/30/19 14:12 10/30/19 14:31 Zofran IV 4 mg Q4H PRN Administration Nausea And Vomiting Oxybutynin Chloride 5 mg 10/29/19 10:00 11/01/19 09:06 Ditropan PO 5 mg DAILY MARCIO Administration Pantoprazole Sodium 40 mg 10/31/19 12:00 11/01/19 09:05 Protonix PO 40 mg QDAY MARCIO Administration Sodium Chloride 10 ml 10/28/19 22:00 11/01/19 09:06 Sodium Chloride Flush Syringe 10 Ml IV 10 ml BID MARCIO Administration Sodium Chloride 10 ml 10/28/19 11:46 11/01/19 04:06 Sodium Chloride Flush Syringe 10 Ml IV 10 ml PRN PRN Administration LINE FLUSH
--- NOTE | 2019-11-01 11:54 | Progress Note ---
Assessment and Plan 64 y/o female with known cardiomyopathy, admitted with acute respiratory failure secondary to pulmonary edema and cocaine abuse. 1. Wean FiO2 to off as tolerated 2. BP control per primary team. Yesterday patient could not tell me any of the names of her meds. I selected the BB and alpha 1 inhibitor based on profile. She does have coreg on her home list so can change if needed but will likely need more clonidine 3. Will continue to follow. Subjective Date of service: 11/01/19 Interval history: No acute events. RT weaning FiO2. Objective Vital Signs - 12hr 11/01/19 11/01/19 11/01/19 00:00 03:54 03:55 Temperature 98.3 F Pulse Rate 57 L 53 L Pulse Rate [ Bilateral] Pulse Rate [ From Monitor] Respiratory 20 18 Rate Respiratory Rate [Bilateral ] Blood Pressure 152/48 O2 Sat by Pulse 95 Oximetry 11/01/19 11/01/19 11/01/19 04:00 07:47 08:49 Temperature 97.7 F Pulse Rate 57 L 63 Pulse Rate [ 61 Bilateral] Pulse Rate [ From Monitor] Respiratory 20 Rate Respiratory 18 Rate [Bilateral ] Blood Pressure 133/46 O2 Sat by Pulse 99 99 Oximetry 11/01/19 11/01/19 09:05 11:00 Temperature Pulse Rate 63 Pulse Rate [ Bilateral] Pulse Rate [ 70 From Monitor] Respiratory 12 Rate Respiratory Rate [Bilateral ] Blood Pressure 133/46 O2 Sat by Pulse 94 Oximetry Constitutional: other (critically ill on vent, awake, alert) Eyes: non-icteric ENT: oropharynx moist Neck: supple Effort: normal Ascultation: Bilateral: other (coarse BS bilaterally) Cardiovascular: regular rate and rhythm (no mrg) Gastrointestinal: normoactive bowel sounds, soft, non-tender, non-distended Integumentary: normal Neurologic: normal mental status, non-focal exam, pupils equal and round, CN II- XII normal Psychiatric: mood appropriate, affect normal CBC and BMP: 10/30/19 04:55 11/01/19 04:39 ABG, PT/INR, D-dimer: ABG ABG pH 7.414 pH Units (7.350-7.450) 10/30/19 04:15 ABG pCO2 33.9 mm Hg 10/30/19 04:15 ABG pO2 78.0 mm Hg (80.0-90.0) L 10/30/19 04:15 ABG O2 Saturation 96.9 % (95.0-99.0) 10/30/19 04:15 PT/INR, D-dimer PT 14.7 Sec. (12.2-14.9) 10/28/19 03:56 INR 1.14 (0.87-1.13) H 10/28/19 03:56 D-Dimer 966.63 ng/mlDDU (0-234) H 10/28/19 12:41 Abnormal lab findings: Abnormal Labs 10/28/19 10/28/19 10/28/19 03:56 03:56 04:19 RBC Hgb Hct RDW 18.2 H [place] % (Auto) Seg Neutrophils % Eosinophils % (Manual) 5.0 H INR 1.14 H D-Dimer 386.89 H ABG pH ABG pO2 135.7 H ABG HCO3 ABG O2 Saturation ABG Base Excess -4.1 L ABG Hemoglobin 10.4 L Oxyhemoglobin Carbon Dioxide BUN Creatinine Glucose Lactic Acid Calcium Magnesium AST ALT Alkaline Phosphatase Lactate Dehydrogenase C-Reactive Protein NT-Pro-B Natriuret Pep Albumin Urine Creatinine 10/28/19 10/28/19 10/28/19 05:11 05:11 06:20 RBC Hgb Hct RDW [place] % (Auto) Seg Neutrophils % Eosinophils % (Manual) INR D-Dimer ABG pH 7.210 L ABG pO2 96.5 H ABG HCO3 17.8 L ABG O2 Saturation ABG Base Excess -9.6 L ABG Hemoglobin 9.4 L Oxyhemoglobin Carbon Dioxide 16 L BUN 27 H Creatinine 2.7 H Glucose 229 H Lactic Acid 7.20 H* Calcium Magnesium 3.20 H AST 169 H ALT 83 H Alkaline Phosphatase 210 H Lactate Dehydrogenase 353 H C-Reactive Protein 1.80 H NT-Pro-B Natriuret Pep 25128 H Albumin 3.7 L Urine Creatinine 10/28/19 10/28/19 10/28/19 09:15 12:41 12:41 RBC Hgb Hct RDW [place] % (Auto) Seg Neutrophils % Eosinophils % (Manual) INR D-Dimer 966.63 H ABG pH 7.340 L ABG pO2 ABG HCO3 19.8 L ABG O2 Saturation ABG Base Excess -5.5 L ABG Hemoglobin 10.4 L Oxyhemoglobin 94.4 L Carbon Dioxide BUN Creatinine Glucose 130 H Lactic Acid Calcium Magnesium AST ALT Alkaline Phosphatase Lactate Dehydrogenase 307 H C-Reactive Protein 2.60 H NT-Pro-B Natriuret Pep Albumin Urine Creatinine 10/29/19 10/29/19 10/29/19 04:05 04:35 04:35 RBC 3.62 L Hgb Hct RDW 17.2 H [place] % (Auto) 8.8 H Seg Neutrophils % 74.8 H Eosinophils % (Manual) INR D-Dimer ABG pH ABG pO2 215.8 H ABG HCO3 19.9 L ABG O2 Saturation 99.3 H ABG Base Excess -4.9 L ABG Hemoglobin 9.8 L Oxyhemoglobin Carbon Dioxide 18 L BUN 41 H Creatinine 3.2 H Glucose Lactic Acid Calcium Magnesium AST ALT Alkaline Phosphatase Lactate Dehydrogenase C-Reactive Protein NT-Pro-B Natriuret Pep Albumin Urine Creatinine 10/29/19 10/30/19 10/30/19 06:00 04:15 04:55 RBC 3.25 L Hgb 9.1 L Hct 28.0 L RDW 17.2 H [place] % (Auto) 9.2 H Seg Neutrophils % Eosinophils % (Manual) INR D-Dimer ABG pH ABG pO2 78.0 L ABG HCO3 ABG O2 Saturation ABG Base Excess -2.8 L ABG Hemoglobin 10.8 L Oxyhemoglobin 94.7 L Carbon Dioxide BUN Creatinine Glucose Lactic Acid Calcium Magnesium AST ALT Alkaline Phosphatase Lactate Dehydrogenase C-Reactive Protein NT-Pro-B Natriuret Pep Albumin Urine Creatinine 137.7 H 10/30/19 10/31/19 11/01/19 04:55 05:15 04:39 RBC Hgb Hct RDW [place] % (Auto) Seg Neutrophils % Eosinophils % (Manual) INR D-Dimer ABG pH ABG pO2 ABG HCO3 ABG O2 Saturation ABG Base Excess ABG Hemoglobin Oxyhemoglobin Carbon Dioxide 20 L BUN 43 H 34 H 26 H Creatinine 3.0 H 2.4 H 2.2 H Glucose 107 H Lactic Acid Calcium 7.9 L Magnesium AST ALT Alkaline Phosphatase Lactate Dehydrogenase C-Reactive Protein NT-Pro-B Natriuret Pep Albumin Urine Creatinine
--- NOTE | 2019-11-01 12:47 | Discharge Summary ---
Providers - Providers Date of Admission: 10/28/19 09:02 Date of discharge: 11/01/19 Attending physician: BRAYAN JOHNSON 10/28/19 04:57 Consult to Dietitian/Nutrition [CONS] Routine Physician Instructions: Reason For Exam: Reason for Consult: Evaluate nutritional intake Consult to Physician [CONS] Stat Comment: CLD OFC LFT DETAILED MSSG ON CONSULT LINE @0969 Consulting Provider: JOSH BINGHAM Physician Instructions: Reason For Exam: acute resp failure 10/28/19 11:46 Consult to Dietitian/Nutrition [CONS] Routine Physician Instructions: Reason For Exam: Reason for Consult: Write/Manage Tube Feeding Consult to Physician [CONS] Routine Comment: Consulting Provider: CARLITA HOFFMAN Physician Instructions: Reason For Exam: chf Consult to Physician [CONS] Routine Comment: Consulting Provider: GRISEL RUBY Physician Instructions: Reason For Exam: CKD 10/28/19 11:51 Consult to Physician [CONS] Routine Comment: Consulting Provider: DELMER AREVALO Physician Instructions: Reason For Exam: sepsis 10/28/19 14:47 Consult to Physician [CONS] Routine Comment: Consulting Provider: LIEN MERCER Physician Instructions: Reason For Exam: acute hypoxemic resp failure; patient known to you Primary care physician: BURGLAR ALARM ASSEMBLER Hospitalization Condition: Fair Hospital course: Patient is 64-year-old female with past medical history of hypertension, chronic kidney disease stage III, nonischemic cardiomyopathy, EF of 45%, pulmonary hypertension, moderate to severe pulmonary hypertension, paroxysmal A. fib, (on systemic anticoagulation) hysterectomy, oophorectomy, cocaine use, depression, schizoaffective disorder with depression and COPD who presented to the emergency department with complaints of chest tightness, cough, shortness of breath, wheezing.the patient had a cardiac catheterization performed at this hospital a few months ago which was negative for coronary artery disease, also ruling out aortic stenosis. Patient reportedly had the symptoms for approximately 2 days with associated cough. While in the emergency room, patient was noted to have moderate respiratory distress with accessory muscle use, and tachypnea. BiPAP was attempted but patient failed and was intubated in Emergency Department. She was admitted to ICU, improved, was extubated and transferred to [facility]. Acute hypoxemic respiratory failure due to CHF exacerbation Acute on chronic diastolic heart failure. Echocardiogram completed 02/2019 revealed normal EF 60% with mild dilatation of the left atrium, and mild calcific aortic stenosis R/LHC 07/2019 revealed moderate severe pulmonary hypertension, PASP 60. No significant aortic stenosis, normal coronary arteries and LVEF of 45%. Acute pulm edema. as per ID, CXR most likely CHF and not pneumonia. Pneumonia ruled out Sepsis ruled out Paroxysmal atrial fibrillation. Cardiology following Acute on Chronic kidney disease III. managed by Nephrology Hypertension. Resume antihypertensive medications as needed. Schizoaffective disorder with depression. 10/29/2019. Patient currently with AC/PRVC mode ventilation with rate 20, tidal volume 450, FiO2 28% and PEEP of 6. Continue SBT per pulmonary. Continue bronchodilators/nebulizers. Continue IV antibiotics. Patient currently with Versed for sedation. Continue diuresis per cardiology/nephrology recommendations. Echocardiogram pending. 10/30/2019. Patient with Versed and fentanyl. Wean sedation. Patient currently on mechanical ventilation AC/PRVC mode ventilation with rate 20, tidal volume 450, FiO2 28% and PEEP of 6 but plans to extubate today. I discussed the case with pulmonary. Consider transfer to the floor after extubation. Creatinine at 3.0 today. 10/31/2019 Patient with acute resp failure, was intubated, now extubated. patient has acute on chronic diastolic CHF. She feels better, less shortness of breath. On Oxygen by NC. Total time spent on discharge, 35 mins Disposition: DC-01 TO HOME OR SELFCARE Core Measure Documentation - Palliative Care Palliative Care/ Comfort Measures: Not Applicable - Core Measures Any of the following diagnoses?: heart failure - Heart Failure Discharge Requirements LISBETH/ARB for LVSD if EF <40%: No Reason for no LISBETH/ARB: Renal impairment Beta calderon at discharge: Yes Exam - Constitutional Vitals: Temp Pulse Resp BP Pulse Ox 97.7 F 70 12 133/46 94 11/01/19 07:47 11/01/19 11:00 11/01/19 11:00 11/01/19 09:05 11/01/19 11:00 Plan Activity: advance as tolerated Diet: low fat, low cholesterol, low salt, renal Special Instructions: home health RN Additional Instructions: 1.Follow up with PCP in 1 week. 2.Follow up with Dr. Waggoner, Pulm in 1 week. [address] Richards, cardiology in 1 week Plan of Treatment: 1.Follow up with PCP in 1 week. 2.Follow up with Dr. Waggoner Pulwagner in [address] week[address] Richards, cardiology in 1 week Follow up with: PRIMARY CARE, [Primary Care Provider] - 3-5 Days Prescriptions: cloNIDine [Catapres] 0.1 mg PO Q12HR #60 tablet
== END 2019-11-01 15:00 | disposition home or self-care (01) | DRG 208 ==
LOC: ED 03:01 → CC1 09:02 → 4A 10-30 17:53
PROVIDERS: ADMIT Hospitalist; ATTEND Internal Medicine
PROC: 0BH17EZ Insertion of Endotracheal Airway into Trachea, Via Natural or Artificial Opening (ICD-10-PCS; principal; 2019-10-28)
PROC: 5A1945Z Respiratory Ventilation, 24-96 Consecutive Hours (ICD-10-PCS; 2019-10-28)
PROC: 4A033R1 Measurement of Arterial Saturation, Peripheral, Percutaneous Approach (ICD-10-PCS; 2019-10-28)
PROC: 5A09357 Assistance with Respiratory Ventilation, Less than 24 Consecutive Hours, Continuous Positive Airway Pressure (ICD-10-PCS; 2019-10-28)
PROC: 5A09357 Assistance with Respiratory Ventilation, Less than 24 Consecutive Hours, Continuous Positive Airway Pressure (ICD-10-PCS; 2019-10-30)
DX: J96.01 Acute respiratory failure with hypoxia (principal); I50.33 Acute on chronic diastolic (congestive) heart failure; J81.0 Acute pulmonary edema; J18.9 Pneumonia, unspecified organism; I42.8 Other cardiomyopathies; E87.2 Acidosis; I13.0 Hypertensive heart and chronic kidney disease with heart failure and stage 1 through stage 4 chronic kidney disease, or unspecified chronic kidney disease; N17.9 Acute kidney failure, unspecified; I27.20 Pulmonary hypertension, unspecified; I48.0 Paroxysmal atrial fibrillation; I25.2 Old myocardial infarction; M19.90 Unspecified osteoarthritis, unspecified site; K21.9 Gastro-esophageal reflux disease without esophagitis; N18.3 Chronic kidney disease, stage 3 (moderate); Z87.891 Personal history of nicotine dependence; G51.0 Bell's palsy; F25.1 Schizoaffective disorder, depressive type; F14.10 Cocaine abuse, uncomplicated; E83.51 Hypocalcemia; I95.9 Hypotension, unspecified; Z88.2 Allergy status to sulfonamides; Z88.6 Allergy status to analgesic agent; Z88.8 Allergy status to other drugs, medicaments and biological substances; Z90.710 Acquired absence of both cervix and uterus; Z90.721 Acquired absence of ovaries, unilateral; J44.9 Chronic obstructive pulmonary disease, unspecified; Z90.49 Acquired absence of other specified parts of digestive tract; Z03.818 Encounter for observation for suspected exposure to other biological agents ruled out; Z79.01 Long term (current) use of anticoagulants
CPT/HCPCS: 36415; 36600; 71045; 76770; 80048; 80053; 80307; 81001; 82140; 82570; 82728; 82803; 82947; 82962; 83615; 83735; 83880; 84145; 84300; 84484; 85007; 85025; 85379; 85610; 86140; 87040; 87070; 87205; 93005; 93306; 94002; 94003; 94640; 94644; 94660; 94760; G0378; A9270-GY; J0171; J0360; J0456; J0696; J1200; J1650; J1940; J2060; J2250; J2405; J2930; J3010; J3475; J7030; J7050; U0003-CS

== ENCOUNTER 2019-11-02 08:49 | Emergency (ER) | payer MEDICARE ==
[2019-11-02] MEDS ORDERED: ASPIRIN 325 MG TAB PO ONE (08:57)
--- NOTE | 2019-11-02 09:12 | Emergency Department Report ---
ED Chest Pain HPI - General Chief Complaint: Chest Pain Stated Complaint: CHEST PAIN/DIFFICULTY BREATHING Time Seen by Provider: 11/02/19 09:10 Source: patient Mode of arrival: Stretcher Limitations: No Limitations - History of Present Illness Initial Comments: This 64-year-old female with a history of a negative left heart cath. She does have a history of congestive cardiomyopathy and aortic stenosis which is mild and medically managed. She is recently discharged after respiratory failure requiring intubation. She has a history of cocaine abuse. She presents to the emergency department stating her entire chest is sore because she had "CPR on Wednesday". I do not mention any history of CPR in the available records. The patient does not emphasized shortness of breath although she states that she does have that chronically. She has not had any recent fever chills or significant cough. The patient has a history of chronic kidney disease stage III. Recent discharge summary: Initial comments: This is a 64-year-old female with multiple comorbidities who has been seen at this facility with significant regularity. She presents today with bilateral posterior chest pain above her flank area. She states that this is painful when she moves or bends. She does not endorse recent cough, fever, pleuritic pain or chills. She denies any recent travel. She is not on an anticoagulant. She denies a history of venous thromboembolism. She also denies any leg pain or swelling. She has a history of a psychiatric disorder and cocaine abuse. Last discharge summary 220 is indicative of the following: Discharge Diagnosis; / Acute TIA - called stroke alert 07/21, s/p tPA - transferred to ICU - MRI brain showed white matter disease /Hypertension; normotensive now Had episodes of low BP - readjusted medications with gentle iv fluid /KARI on Chronic kidney disease stage III; not POA - likely due to due to low BP Monitor renal function, avoid nephrotoxins, nephrology following Continue mild IV fluid for now, creatinine slightly trended up today /Acute systolic congestive heart failure [Heart failure with reduced LV f unction] s/p diuretics, input output monitoring; cont beta-blockers with reduce dose Low-sodium diet, fluid restriction, cardiology following cardiac cath showed Ef of 45% /Aortic stenosis -mild, need medical Mx Status post cardiac cath to further assess for aortic stenosis in light of patient's complaints of dyspnea R/L heart cath: Moderate-severe pulm hypertension, PASP 60. No significant aortic stenosis. Normal coronaries. LVEF 45%. /Respiratory distress vs dyspnea on exertion -due to pHTN -Complains of dyspnea on ambulation but maintaining O2 sat greater than 92% on pulse ox -Per 2D echo patient has mild aortic stenosis, cardiac cath today showed moderate to severe pulmonary hypertension - PASP 60. -Patient needs further outpatient follow-up with medical office assistant instructor for evaluation of pHTN /History of paroxysmal atrial fibrillation; status post ablation Patient no longer on anticoagulation Continue current management cardiology following /History of schizoaffective disorder; With depression, continue psych medications psych consult if needed /Ongoing tobacco use; smoking cessation counseling Nicotine patch as needed /Cocaine abuse, counselled, UDS is positive for cocaine --DVT prophylaxis; Lovenox d/c home with outpt f/u Complaint: chest pain -: Gradual, days(s) Onset: during rest Pain Location: other (Entire chest) Pain Radiation: none Severity: moderate Quality: aching Consistency: constant Improves With: nothing Worsens With: movement re: dyspnea (Chronic but not associated). denies: nausea, vomting, diaphoresis Other Symptoms: denies: cough, fever, syncope - Related Data Home Medications Medication Instructions Recorded Confirmed Last Taken traZODone [Desyrel] 50 mg PO QHS 08/09/13 10/29/19 04/05/14 Budesonide/Formoterol Fumarate 10.2 gm IH Q4H 03/10/19 10/29/19 03/10/19 [Symbicort 160-4.5 Mcg Inhaler] Chlorpheniramine/Dextromethorp 1 each PO Q6HR 03/10/19 10/29/19 03/10/19 [Cough-Cold Tablet] allopurinoL [Zyloprim] 100 mg PO QDAY 03/10/19 10/29/19 03/10/19 methOCARBAMOL 500 mg PO Q6HR PRN 03/27/19 10/29/19 Unknown Previous Rx's Medication Instructions Recorded Last Taken Type AtorvaSTATin [Lipitor] 40 mg PO QHS #30 tablet 04/07/19 Unknown Rx Aspirin EC [Halfprin EC] 81 mg PO DAILY #30 tablet. 07/18/19 Unknown Rx Depakote ER 250 mg PO BID #14 07/18/19 Unknown Rx Fluticasone [Flonase] 100 mcg NS QDAY #1 bottle 07/18/19 Unknown Rx Oxybutynin [Ditropan] 5 mg PO DAILY #7 07/18/19 Unknown Rx Pantoprazole [Protonix TAB] 40 mg PO QDAY #30 07/18/19 Unknown Rx carvediloL [Coreg] 6.25 mg PO DAILY #60 07/18/19 Unknown Rx Aspirin [Aspirin BABY CHEW TAB] 81 mg PO QDAY #30 tab.chew 07/23/19 Unknown Rx Acetaminophen [Non-Aspirin Extra 500 mg PO Q6HR PRN #30 tablet 08/05/19 Unknown Rx Strength] Agnieszka Root [Agnieszka] 250 mg PO QID PRN #30 capsule 08/05/19 Unknown Rx Metoclopramide [Reglan TAB] 10 mg PO QID PRN #30 tablet 08/05/19 Unknown Rx cloNIDine [Catapres] 0.1 mg PO Q12HR #60 tablet 11/01/19 Unknown Rx traMADoL [Ultram 50 MG tab] 50 mg PO Q6HR PRN #7 tablet 11/02/19 Unknown Rx Allergies Allergy/AdvReac Type Severity Reaction Status Date / Time codeine Allergy Rash Verified 08/05/19 18:06 Sulfa (Sulfonamide Allergy Rash Verified 08/05/19 18:06 Antibiotics) lisinopril AdvReac Unknown Verified 08/05/19 18:06 Heart Score - HEART Score History: Slightly suspicious EKG: Non-specific Age: 45-65 Risk factors: 1-2 risk factors Troponin: < normal limit HEART Score: 3 - Critical Actions Critical Actions: 0-3 pts:0.9-1.7%risk of adverse cardiac event.Candidate for discharge ED Review of Systems ROS: Stated complaint: CHEST PAIN/DIFFICULTY BREATHING Other details as noted in HPI Constitutional: denies: chills, fever Eyes: denies: eye pain, eye discharge, vision change ENT: denies: ear pain, throat pain Respiratory: shortness of breath. denies: cough, wheezing Cardiovascular: chest pain. denies: palpitations Endocrine: no symptoms reported Gastrointestinal: denies: abdominal pain, nausea, diarrhea Genitourinary: denies: urgency, dysuria, discharge Musculoskeletal: denies: back pain, joint swelling, arthralgia Skin: denies: rash, lesions Neurological: denies: headache, weakness, paresthesias Psychiatric: denies: anxiety, depression Hematological/Lymphatic: denies: easy bleeding, easy bruising ED Past Medical Hx - Past Medical History Previous Medical History?: Yes Hx Hypertension: Yes Hx Heart Attack/AMI: Yes Hx Congestive Heart Failure: Yes Hx GERD: Yes Hx Renal Disease: Yes (stage 3) Hx Arthritis: Yes (Osteo) Hx Psychiatric Treatment: Yes (SCHIZO-AFFECTIVE) Hx COPD: Yes Additional medical history: AFIB, bells palsy, back pain - Surgical History Past Surgical History?: Yes Hx Cholecystectomy: Yes Additional Surgical History: Cholecystectomy and hysterectomy, rt roary cuff, heart ablation - Social History Smoking Status: Never Smoker Substance Use Type: None - Medications Home Medications: Home Medications Medication Instructions Recorded Confirmed Last Taken Type traZODone [Desyrel] 50 mg PO QHS 08/09/13 10/29/19 04/05/14 History Budesonide/Formoterol Fumarate 10.2 gm IH Q4H 03/10/19 10/29/19 03/10/19 History [Symbicort 160-4.5 Mcg Inhaler] Chlorpheniramine/Dextromethorp 1 each PO Q6HR 03/10/19 10/29/19 03/10/19 History [Cough-Cold Tablet] allopurinoL [Zyloprim] 100 mg PO QDAY 03/10/19 10/29/19 03/10/19 History methOCARBAMOL 500 mg PO Q6HR PRN 03/27/19 10/29/19 Unknown History AtorvaSTATin [Lipitor] 40 mg PO QHS #30 tablet 04/07/19 10/29/19 Unknown Rx Aspirin EC [Halfprin EC] 81 mg PO DAILY #30 tablet. 07/18/19 10/29/19 Unknown Rx Depakote ER 250 mg PO BID #14 07/18/19 10/29/19 Unknown Rx Fluticasone [Flonase] 100 mcg NS QDAY #1 bottle 07/18/19 10/29/19 Unknown Rx Oxybutynin [Ditropan] 5 mg PO DAILY #7 07/18/19 10/29/19 Unknown Rx Pantoprazole [Protonix TAB] 40 mg PO QDAY #30 07/18/19 10/29/19 Unknown Rx carvediloL [Coreg] 6.25 mg PO DAILY #60 07/18/19 10/29/19 Unknown Rx Aspirin [Aspirin BABY CHEW TAB] 81 mg PO QDAY #30 tab.chew 07/23/19 10/29/19 Unknown Rx Acetaminophen [Non-Aspirin Extra 500 mg PO Q6HR PRN #30 tablet 08/05/19 10/29/19 Unknown Rx Strength] Agnieszka Root [Agnieszka] 250 mg PO QID PRN #30 capsule 08/05/19 10/29/19 Unknown Rx Metoclopramide [Reglan TAB] 10 mg PO QID PRN #30 tablet 08/05/19 10/29/19 Unknown Rx cloNIDine [Catapres] 0.1 mg PO Q12HR #60 tablet 11/01/19 Unknown Rx traMADoL [Ultram 50 MG tab] 50 mg PO Q6HR PRN #7 tablet 11/02/19 Unknown Rx ED Physical Exam - General Limitations: No Limitations General appearance: alert, in no apparent distress - Head Head exam: Present: atraumatic, normocephalic - Eye Eye exam: Present: normal appearance. Absent: scleral icterus - ENT ENT exam: Present: mucous membranes moist - Neck Neck exam: Present: normal inspection - Respiratory Respiratory exam: Present: normal lung sounds bilaterally, chest wall tenderness. Absent: respiratory distress - Cardiovascular Cardiovascular Exam: Present: regular rate, normal rhythm. Absent: systolic murmur, diastolic murmur, rubs, gallop - GI/Abdominal GI/Abdominal exam: Present: soft, normal bowel sounds. Absent: distended, tenderness, guarding, rebound - Extremities Exam Extremities exam: Present: normal inspection, normal capillary refill. Absent: pedal edema, joint swelling, calf tenderness - Back Exam Back exam: Present: normal inspection - Neurological Exam Neurological exam: Present: alert, oriented X3, CN II-XII intact. Absent: motor sensory deficit - Psychiatric Psychiatric exam: Present: normal affect, normal mood - Skin Skin exam: Present: warm, dry, intact, normal color. Absent: rash ED Course Vital Signs 11/02/19 11/02/19 11/02/19 08:52 09:00 09:16 Temperature 98.8 F Pulse Rate 60 67 60 Respiratory 16 19 18 Rate Blood Pressure 161/69 165/72 O2 Sat by Pulse 100 98 100 Oximetry 11/02/19 11/02/19 11/02/19 09:19 09:30 10:08 Temperature Pulse Rate 57 L 66 Respiratory 16 22 15 Rate Blood Pressure 156/58 156/58 O2 Sat by Pulse 100 100 100 Oximetry 11/02/19 11/02/19 11/02/19 11:08 11:30 12:00 Temperature Pulse Rate 57 L 61 Respiratory 16 26 H Rate Blood Pressure 156/58 149/55 179/73 O2 Sat by Pulse 100 100 97 Oximetry - Reevaluation(s) Reevaluation #1: Patient observed for quite some time. No significant chest pain. Remained stable. Appropriate for outpatient disposition. 11/02/19 15:33 MAGALYS score - Magalys Score Age > 65: (0) No Aspirin use within the Past 7 Days: (1) Yes 3 or more CAD Risk Factors: (1) Yes 2 or more Angina events in past 24 hrs: (1) Yes Known CAD with more than 50% Stenosis: (0) No Elevated Cardiac Markers: (0) No ST Deviation Greater than 0.5mm: (0) No MAGALYS Score: 3 ED Medical Decision Making - Lab Data Result diagrams: 11/02/19 09:03 11/02/19 09:03 Laboratory Results - last 24 hr 11/02/19 11/02/19 11/02/19 09:03 09:03 09:03 WBC 7.2 RBC 3.81 Hgb 10.7 Hct 32.9 MCV 87 MCH 28 MCHC 33 RDW 17.0 H Plt Count 287 Lymph % (Auto) 28.2 [place] % (Auto) 11.1 H Eos % (Auto) 4.6 H Baso % (Auto) 1.2 Lymph # 2.0 [place] # 0.8 Eos # 0.3 Baso # 0.1 Seg Neutrophils % 54.9 Seg Neutrophils # 3.9 PT INR APTT D-Dimer Sodium 139 Potassium 4.9 Chloride 104.3 Carbon Dioxide 23 Anion Gap 17 BUN 22 H Creatinine 2.3 H Estimated GFR 26 BUN/Creatinine Ratio 10 Glucose 82 Lactic Acid Calcium 9.2 Magnesium Total Bilirubin 0.30 Direct Bilirubin < 0.2 Indirect Bilirubin 0.1 AST 24 ALT 31 Alkaline Phosphatase 134 H Total Creatine Kinase 108 CK-MB (CK-2) 1.9 CK-MB (CK-2) Rel Index 1.7 Troponin T < 0.010 NT-Pro-B Natriuret Pep Total Protein 6.7 Albumin 3.6 L Albumin/Globulin Ratio 1.2 Urine Color Urine Turbidity Urine pH Ur Specific [place] Urine Protein Urine Glucose (UA) Urine Ketones Urine Blood Urine Nitrite Urine Bilirubin Urine Urobilinogen Ur Leukocyte Esterase Urine WBC (Auto) Urine RBC (Auto) U Epithel Cells (Auto) Urine Opiates Screen Urine Methadone Screen Ur Barbiturates Screen Ur Phencyclidine Scrn Ur Amphetamines Screen U Benzodiazepines Scrn Urine Cocaine Screen U Marijuana (THC) Screen 11/02/19 11/02/19 11/02/19 09:03 09:03 09:53 WBC RBC Hgb Hct MCV MCH MCHC RDW Plt Count Lymph % (Auto) [place] % (Auto) Eos % (Auto) Baso % (Auto) Lymph # [place] # Eos # Baso # Seg Neutrophils % Seg Neutrophils # PT 15.1 H INR 1.21 H APTT 31.8 D-Dimer 719.27 H Sodium Potassium Chloride Carbon Dioxide Anion Gap BUN Creatinine Estimated GFR BUN/Creatinine Ratio Glucose Lactic Acid 1.00 Calcium Magnesium 2.40 H Total Bilirubin Direct Bilirubin Indirect Bilirubin AST ALT Alkaline Phosphatase Total Creatine Kinase CK-MB (CK-2) CK-MB (CK-2) Rel Index Troponin T NT-Pro-B Natriuret Pep 02817 H Total Protein Albumin Albumin/Globulin Ratio Urine Color Urine Turbidity Urine pH Ur Specific [place] Urine Protein Urine Glucose (UA) Urine Ketones Urine Blood Urine Nitrite Urine Bilirubin Urine Urobilinogen Ur Leukocyte Esterase Urine WBC (Auto) Urine RBC (Auto) U Epithel Cells (Auto) Urine Opiates Screen Urine Methadone Screen Ur Barbiturates Screen Ur Phencyclidine Scrn Ur Amphetamines Screen U Benzodiazepines Scrn Urine Cocaine Screen U Marijuana (THC) Screen 11/02/19 11/02/19 11:10 11:10 WBC RBC Hgb Hct MCV MCH MCHC RDW Plt Count Lymph % (Auto) [place] % (Auto) Eos % (Auto) Baso % (Auto) Lymph # [place] # Eos # Baso # Seg Neutrophils % Seg Neutrophils # PT INR APTT D-Dimer Sodium Potassium Chloride Carbon Dioxide Anion Gap BUN Creatinine Estimated GFR BUN/Creatinine Ratio Glucose Lactic Acid Calcium Magnesium Total Bilirubin Direct Bilirubin Indirect Bilirubin AST ALT Alkaline Phosphatase Total Creatine Kinase CK-MB (CK-2) CK-MB (CK-2) Rel Index Troponin T NT-Pro-B Natriuret Pep Total Protein Albumin Albumin/Globulin Ratio Urine Color Yellow Urine Turbidity Clear Urine pH 6.0 Ur Specific [place] 1.017 Urine Protein <15 mg/dl Urine Glucose (UA) Neg Urine Ketones Neg Urine Blood Neg Urine Nitrite Neg Urine Bilirubin Neg Urine Urobilinogen < 2.0 Ur Leukocyte Esterase Neg Urine WBC (Auto) < 1.0 Urine RBC (Auto) 2.0 U Epithel Cells (Auto) 2.0 Urine Opiates Screen Presumptive negative Urine Methadone Screen Presumptive negative Ur Barbiturates Screen Presumptive negative Ur Phencyclidine Scrn Presumptive negative Ur Amphetamines Screen Presumptive negative U Benzodiazepines Scrn Presumptive positive Urine Cocaine Screen Presumptive positive U Marijuana (THC) Screen Presumptive negative Laboratory Results - last 24 hr 11/02/19 11/02/19 11/02/19 09:03 09:03 09:03 WBC 7.2 RBC 3.81 Hgb 10.7 Hct 32.9 MCV 87 MCH 28 MCHC 33 RDW 17.0 H Plt Count 287 Lymph % (Auto) 28.2 [place] % (Auto) 11.1 H Eos % (Auto) 4.6 H Baso % (Auto) 1.2 Lymph # 2.0 [place] # 0.8 Eos # 0.3 Baso # 0.1 Seg Neutrophils % 54.9 Seg Neutrophils # 3.9 PT INR APTT D-Dimer Sodium 139 Potassium 4.9 Chloride 104.3 Carbon Dioxide 23 Anion Gap 17 BUN 22 H Creatinine 2.3 H Estimated GFR 26 BUN/Creatinine Ratio 10 Glucose 82 Lactic Acid Calcium 9.2 Magnesium Total Bilirubin 0.30 Direct Bilirubin < 0.2 Indirect Bilirubin 0.1 AST 24 ALT 31 Alkaline Phosphatase 134 H Total Creatine Kinase 108 CK-MB (CK-2) 1.9 CK-MB (CK-2) Rel Index 1.7 Troponin T < 0.010 NT-Pro-B Natriuret Pep Total Protein 6.7 Albumin 3.6 L Albumin/Globulin Ratio 1.2 Urine Color Urine Turbidity Urine pH Ur Specific [place] Urine Protein Urine Glucose (UA) Urine Ketones Urine Blood Urine Nitrite Urine Bilirubin Urine Urobilinogen Ur Leukocyte Esterase Urine WBC (Auto) Urine RBC (Auto) U Epithel Cells (Auto) Urine Opiates Screen Urine Methadone Screen Ur Barbiturates Screen Ur Phencyclidine Scrn Ur Amphetamines Screen U Benzodiazepines Scrn Urine Cocaine Screen U Marijuana (THC) Screen Drugs of Abuse Note 11/02/19 11/02/19 11/02/19 09:03 09:03 09:53 WBC RBC Hgb Hct MCV MCH MCHC RDW Plt Count Lymph % (Auto) [place] % (Auto) Eos % (Auto) Baso % (Auto) Lymph # [place] # Eos # Baso # Seg Neutrophils % Seg Neutrophils # PT 15.1 H INR 1.21 H APTT 31.8 D-Dimer 719.27 H Sodium Potassium Chloride Carbon Dioxide Anion Gap BUN Creatinine Estimated GFR BUN/Creatinine Ratio Glucose Lactic Acid 1.00 Calcium Magnesium 2.40 H Total Bilirubin Direct Bilirubin Indirect Bilirubin AST ALT Alkaline Phosphatase Total Creatine Kinase CK-MB (CK-2) CK-MB (CK-2) Rel Index Troponin T NT-Pro-B Natriuret Pep 24695 H Total Protein Albumin Albumin/Globulin Ratio Urine Color Urine Turbidity Urine pH Ur Specific [place] Urine Protein Urine Glucose (UA) Urine Ketones Urine Blood Urine Nitrite Urine Bilirubin Urine Urobilinogen Ur Leukocyte Esterase Urine WBC (Auto) Urine RBC (Auto) U Epithel Cells (Auto) Urine Opiates Screen Urine Methadone Screen Ur Barbiturates Screen Ur Phencyclidine Scrn Ur Amphetamines Screen U Benzodiazepines Scrn Urine Cocaine Screen U Marijuana (THC) Screen Drugs of Abuse Note 11/02/19 11/02/19 11:10 11:10 WBC RBC Hgb Hct MCV MCH MCHC RDW Plt Count Lymph % (Auto) [place] % (Auto) Eos % (Auto) Baso % (Auto) Lymph # [place] # Eos # Baso # Seg Neutrophils % Seg Neutrophils # PT INR APTT D-Dimer Sodium Potassium Chloride Carbon Dioxide Anion Gap BUN Creatinine Estimated GFR BUN/Creatinine Ratio Glucose Lactic Acid Calcium Magnesium Total Bilirubin Direct Bilirubin Indirect Bilirubin AST ALT Alkaline Phosphatase Total Creatine Kinase CK-MB (CK-2) CK-MB (CK-2) Rel Index Troponin T NT-Pro-B Natriuret Pep Total Protein Albumin Albumin/Globulin Ratio Urine Color Yellow Urine Turbidity Clear Urine pH 6.0 Ur Specific [place] 1.017 Urine Protein <15 mg/dl Urine Glucose (UA) Neg Urine Ketones Neg Urine Blood Neg Urine Nitrite Neg Urine Bilirubin Neg Urine Urobilinogen < 2.0 Ur Leukocyte Esterase Neg Urine WBC (Auto) < 1.0 Urine RBC (Auto) 2.0 U Epithel Cells (Auto) 2.0 Urine Opiates Screen Presumptive negative Urine Methadone Screen Presumptive negative Ur Barbiturates Screen Presumptive negative Ur Phencyclidine Scrn Presumptive negative Ur Amphetamines Screen Presumptive negative U Benzodiazepines Scrn Presumptive positive Urine Cocaine Screen Presumptive positive U Marijuana (THC) Screen Presumptive negative Drugs of Abuse Note Disclamer - Radiology Data Radiology results: report reviewed (Chest CT no supplemental findings. Pleural fluid no infiltrate. Perfusion scan no defects.) Critical care attestation.: If time is entered above; I have spent that time in minutes in the direct care of this critically ill patient, excluding procedure time. ED Disposition Clinical Impression: Chest wall pain, Cocaine abuse Disposition: TO HOME OR SELFCARE Is pt being admited?: No Does the pt Need Aspirin: No Condition: Stable Instructions: Chest Pain (ED) Additional Instructions: Return any acute change or problem. Otherwise follow-up with your international first officer and primary care physician. Prescriptions: traMADoL [Ultram 50 MG tab] 50 mg PO Q6HR PRN #7 tablet PRN Reason: Pain Referrals: PRIMARY CARE, [Primary Care Provider] - 3-5 Days Usual, international first officer [Other] - 3-5 Days [facility] [Provider Group] - 24 Hours Time of Disposition: 15:32
[2019-11-02 09:26] LABS: Basophils # (Auto) 0.1 K/mm3 (0.0-0.1); Basophils % (Auto) 1.2 % (0.0-1.8); Eosinophils # (Auto) 0.3 K/mm3 (0.0-0.4); Eosinophils % (Auto) 4.6 % (0.0-4.3); Hematocrit 32.9 % (30.3-42.9); Hemoglobin 10.7 gm/dl (10.1-14.3); Lymphocytes % (Auto) 28.2 % (13.4-35.0); Mean Corpuscular HGB Conc 33 % (30-34); Mean Corpuscular Volume 87 fl (79-97); Monocytes # (Auto) 0.8 K/mm3 (0.0-0.8); Monocytes % (Auto) 11.1 % (0.0-7.3); Platelet Count 287 K/mm3 (140-440); Red Blood Count 3.81 M/mm3 (3.65-5.03)
[2019-11-02 09:42] LABS: BUN/Creatinine Ratio 10; Blood Urea Nitrogen 22 mg/dL (7-17); Calcium 9.2 mg/dL (8.4-10.2); Hemolysis Index 11
[2019-11-02 10:04] LABS: INR 1.21 (0.87-1.13); Partial Thromboplastin Time 31.8 Sec. (24.2-36.6)
--- NOTE | 2019-11-02 10:28 | Cat Scan Report ---
CT CHEST WITHOUT CONTRAST INDICATION / CLINICAL INFORMATION: abn CXR Pain h/o CPR 1 week ago. TECHNIQUE: Axial CT images were obtained through the chest without contrast. Sagittal and coronal reformatted im ages. All CT scans at this location are performed using CT dose reduction for ALARA by means of autom ated exposure control. COMPARISON: AP chest dated 10/30/2019. FINDINGS: HEART: Moderate cardiomegaly. No pericardial effusion. THORACIC AORTA: No significant abnormality. MEDIASTINUM and REVA: There are a few borderline paratracheal and AP window lymph nodes. The largest lymph node measures 1.5 x 0.9 cm in the AP window. LUNGS: Minimal centrilobular emphysematous changes are identified in the upper lobes. Mild underlying interstitial edema is also noted. No mass or infiltrate. PLEURA: Small layering left pleural effusion. No pneumothorax. SKELETAL SYSTEM: Mild thoracic spondylosis. No fracture or suspicious bony lesion. UPPER ABDOMEN: Cholecystectomy. 3 cm left renal cyst. ADDITIONAL FINDINGS: None. IMPRESSION: Moderate cardiomegaly and small left pleural effusion. Correlate for mild CHF. Minimal emphysematous changes in the upper lobes. Signer Name: Javier Augustine Jr, MD Signed: 11/02/2019 10:23 AM Workstation Name: [id number]
[2019-11-02 10:49] LABS: Alanine Aminotransferase 31 units/L (7-56); Albumin 3.6 g/dL (3.9-5); Creatine Kinase MB 1.9 ng/mL (0.0-4.0)
[2019-11-02 10:56] LABS: Bilirubin,Direct < 0.2 mg/dL (0-0.2)
[2019-11-02 11:22] LABS: Bilirubin,Urine NEG (Negative); Blood,Urine NEG (Negative); Color,Urine Yellow (Yellow); Protein,Urine <15 mg/dL mg/dL (Negative); Urobilinogen,Urine < 2.0 mg/dL (<2.0); WBC,Urine < 1.0 /HPF (0.0-6.0)
[2019-11-02 11:31] LABS: Amphetamine Screen,Urine PRESUMPTIVE NEGATIVE; Cannabinoid Screen,Urine PRESUMPTIVE NEGATIVE; Methadone Screen,Urine PRESUMPTIVE NEGATIVE; Opiate Screen,Urine PRESUMPTIVE NEGATIVE
[2019-11-02] MEDS ORDERED: HYDROcodone/ACETAMINOPHEN 5-325 MG TAB PO ONE (11:34)
[2019-11-02 12:18] LABS: Benzodiazepines Screen,Urine PRESUMPTIVE POSITIVE; Cocaine Screen,Urine PRESUMPTIVE POSITIVE
--- NOTE | 2019-11-02 14:05 | Nuclear Medicine Report ---
NM perfusion only lung scan INDICATION: CP elevated Dimer. TECHNIQUE: 5 mCi of technetium 99m leveled MAA COMPARISON: Chest CT and chest radiograph dated 11/02/2019 FINDINGS: There is relatively symmetric uptake and right and left lungs. Heart is enlarged. No significant perf usion defects are identified. IMPRESSION: 1. No significant scintigraphic abnormality.. No significant perfusion defects are seen. The heart is enlarged Signer Name: Varun Dunne MD Signed: 11/02/2019 2:00 PM Workstation Name: [id number]
--- NOTE | 2019-11-02 15:20 | XRay Report ---
CHEST 1 VIEW INDICATION: Chest Pain. COMPARISON: 10/30/2019 FINDINGS: Support devices: None. Heart: Borderline large. Pulmonary vasculature: Indistinct with central vascular congestion. Lungs/Pleura: Bilateral perihilar and bibasal interstitial opacities. Left basal opacification with s ilhouetting of the diaphragm and the left heart border. Opacification of the left costophrenic angle. Additional findings: The endotracheal tube has been removed and the nasogastric tube is been removed since the last exam. IMPRESSION: 1. CHF with new central and new bibasal pulmonary edema. 2. Left basal airspace disease or atelectasis and moderate size left pleural effusion. Signer Name: Miki Simpson MD Signed: 11/02/2019 3:16 PM Workstation Name: [id number]
[2019-11-02 16:09] VITALS: BP 145/62
== END 2019-11-02 15:47 | disposition home or self-care (01) ==
LOC: ED 08:49
DX: R07.89 Other chest pain (principal); F14.10 Cocaine abuse, uncomplicated; I13.0 Hypertensive heart and chronic kidney disease with heart failure and stage 1 through stage 4 chronic kidney disease, or unspecified chronic kidney disease; I50.9 Heart failure, unspecified; N18.3 Chronic kidney disease, stage 3 (moderate); I48.91 Unspecified atrial fibrillation; F20.9 Schizophrenia, unspecified; J44.9 Chronic obstructive pulmonary disease, unspecified; M19.90 Unspecified osteoarthritis, unspecified site; Z90.49 Acquired absence of other specified parts of digestive tract; Z90.710 Acquired absence of both cervix and uterus; Z88.8 Allergy status to other drugs, medicaments and biological substances; Z88.6 Allergy status to analgesic agent; Z79.899 Other long term (current) drug therapy; Z88.2 Allergy status to sulfonamides; Z98.890 Other specified postprocedural states
CPT/HCPCS: 36415; 71045; 71250; 78580; 80048; 80076; 80307; 81001; 82140; 82550; 82553; 83735; 83880; 84484; 85025; 85379; 85610; 85730; 93005; 99285; A9540

== ENCOUNTER 2020-03-17 10:06 | Inpatient (IN) | payer MEDICARE ==
[2020-03-17] MEDS ORDERED: MAGNESIUM SULFATE 2 GM/50 ML BAG IV ONE (10:26)
[2020-03-17] MEDS ORDERED: methylPREDNISolone Sod Succinate 125 MG/2 ML INJ IV ONE (10:38)
--- NOTE | 2020-03-17 10:41 | Emergency Department Report ---
HPI - General Chief Complaint: Dyspnea/Respdistress Time Seen by Provider: 03/17/20 10:17 - HPI HPI: Room 26 The patient is a 65-year-old female present with a chief complaint of shortness of breath. The patient states she is felt short of breath for the past 4 days. Patient admits to an occasional cough that is nonproductive. Patient denies history of fever. Patient states initially it feels like her COPD but then the patient states it feels like she has fluid on her lungs. Patient denies any contact with known Covid positive patients. The patient was administered Lasix 40 mg IV by EMS prior to arrival ED Past Medical Hx - Past Medical History Previous Medical History?: Yes Hx Hypertension: Yes Hx Heart Attack/AMI: Yes Hx Congestive Heart Failure: Yes Hx GERD: Yes Hx Renal Disease: Yes (stage 3) Hx Arthritis: Yes (Osteo) Hx Psychiatric Treatment: Yes (SCHIZO-AFFECTIVE) Hx Asthma: Yes Hx COPD: Yes Additional medical history: AFIB, bells palsy, back pain - Surgical History Past Surgical History?: Yes Hx Cholecystectomy: Yes Additional Surgical History: Cholecystectomy and hysterectomy, rt roary cuff, heart ablation - Family History Family history: no significant - Social History Smoking Status: Current Every Day Smoker Substance Use Type: Alcohol, Marijuana - Medications Home Medications: Home Medications Medication Instructions Recorded Confirmed Last Taken Type carvediloL [Coreg] 6.25 mg PO BID 11/10/19 11/10/19 1 Day Ago History ~11/09/19 AtorvaSTATin [Lipitor] 40 mg PO QHS #30 tablet 11/13/19 Unknown Rx Furosemide [Lasix TAB] 20 mg PO QDAY #20 tablet 11/13/19 Unknown Rx Acetaminophen [Acetaminophen TAB] 650 mg PO Q4H PRN tablet 12/10/19 Unknown Rx Apixaban [Eliquis] 2.5 mg PO BID tablet 12/10/19 Unknown Rx Metoclopramide [Reglan TAB] 10 mg PO ACHS tablet 12/10/19 Unknown Rx carvediloL [Coreg] 6.25 mg PO BID tablet 12/10/19 Unknown Rx dilTIAZem [Cardizem] 30 mg PO Q6HR #90 tablet 12/10/19 Unknown Rx hydrOXYzine PAMOATE [Vistaril] 50 mg PO Q6HR PRN capsule 12/10/19 Unknown Rx ED Review of Systems ROS: Stated complaint: VALERIO Other details as noted in HPI Constitutional: no symptoms reported Respiratory: no symptoms reported Endocrine: no symptoms reported Physical Exam - Physical Exam Physical Exam: GENERAL: The patient is well-developed well-nourished female sitting in chair holding CPAP to face exhibiting increased work of breathing. [] HEENT: Normocephalic. Atraumatic. Extraocular motions are intact. Patient has moist mucous membranes. NECK: Supple. Trachea midline CHEST/LUNGS: Clear to auscultation. There is accessory muscle use. No crackles auscultated. No wheezing auscultated HEART/CARDIOVASCULAR: Regular. There is no tachycardia. There is no gallop rub or murmur. ABDOMEN: Abdomen is soft, nontender. Patient has normal bowel sounds. There is no abdominal distention. SKIN: There is no rash. There is no edema. There is no diaphoresis. NEURO: The patient is awake, alert, and oriented. The patient is cooperative. The patient has normal speech MUSCULOSKELETAL: There is no evidence of acute injury. ED Course - Reevaluation(s) Reevaluation #1: 03/17/20 13:06 Patient states she feels improved but still has slightly increased work of breathing. We will admit the patient to the hospital for further management ED Medical Decision Making - Lab Data Result diagrams: 03/17/20 10:48 03/17/20 10:48 Laboratory Tests 03/17/20 03/17/20 03/17/20 10:48 10:48 10:48 WBC 10.8 RBC 3.86 Hgb 10.7 Hct 32.1 MCV 83 MCH 28 MCHC 33 RDW 19.7 H Plt Count 306 Lymph % (Auto) 19.2 [place] % (Auto) 5.4 Eos % (Auto) 0.4 Baso % (Auto) 0.6 Lymph # (Auto) 2.1 [place] # (Auto) 0.6 Eos # (Auto) 0.0 Baso # (Auto) 0.1 Seg Neutrophils % 74.4 H Seg Neutrophils # 8.1 H PT 12.9 INR 0.95 Sodium 135 L Potassium 4.3 Chloride 101.0 Carbon Dioxide 21 L Anion Gap 17 BUN 40 H Creatinine 1.9 H Estimated GFR 32 BUN/Creatinine Ratio 21 Glucose 93 Calcium 8.3 L Total Creatine Kinase 57 CK-MB (CK-2) 5.3 H CK-MB (CK-2) Rel Index 9.2 H Troponin T < 0.010 NT-Pro-B Natriuret Pep 90898 H - EKG Data -: EKG Interpreted by Me EKG shows normal: sinus rhythm Rate: normal - EKG Data When compared to previous EKG there are: previous EKG unavailable Interpretation: nonspecific ST-T wave declan (T wave inversions in leads aVL, V6) - Radiology Data Radiology results: report reviewed (Chest x-ray), image reviewed (Chest x-ray) [facility] [address] [place] [address] XRay Report Signed Patient: FRANCIA COATS MR#: [id number] : 1955 Acct:[id number] Age/Sex: 65 / F ADM Date: 03/17/20 Loc: ED Attending Dr: Ordering Physician: BAMBI SLOAN MD Date of Service: 03/17/20 Procedure(s): XR chest 1V ap Accession Number(s): [id number] cc: BAMBI SLOAN MD Fluoro Time In Minutes: CHEST 1 VIEW INDICATION: Shortness of breath COMPARISON: 12/08/2019 FINDINGS: SUPPORT DEVICES: None. HEART / MEDIASTINUM: No significant abnormality. LUNGS / PLEURA: Mild diffuse interstitial pulmonary edema. No pneumothorax. ADDITIONAL FINDINGS: IMPRESSION: 1. Recurrent diffuse interstitial pulmonary edema as compared to previous exam Signer Name: Nicko Poe MD Signed: 03/17/2020 11:05 AM Workstation Name: [id number] Transcribed By: WG Dictated By: Nicko Poe MD Electronically Authenticated By: Nicko Poe MD Signed Date/Time: 03/17/20 110 DD/ 1104 TD/TT: - Differential Diagnosis COPD exacerbation, CHF exacerbation, pneumonia, bronchitis Critical care attestation.: If time is entered above; I have spent that time in minutes in the direct care of this critically ill patient, excluding procedure time. ED Disposition Clinical Impression: CHF exacerbation, Shortness of breath Disposition: OP ADMIT IP TO THIS HOSP Is pt being admited?: Yes Does the pt Need Aspirin: Yes Condition: Fair Referrals: LYRIC SIBLEY MD [Primary Care Provider] - 3-5 Days Time of Disposition: 13:25 (Hospitalist paged (Dr. Javed))
--- NOTE | 2020-03-17 11:09 | XRay Report ---
CHEST 1 VIEW INDICATION: Shortness of breath COMPARISON: 12/08/2019 FINDINGS: SUPPORT DEVICES: None. HEART / MEDIASTINUM: No significant abnormality. LUNGS / PLEURA: Mild diffuse interstitial pulmonary edema. No pneumothorax. ADDITIONAL FINDINGS: IMPRESSION: 1. Recurrent diffuse interstitial pulmonary edema as compared to previous exam Signer Name: Nicko oPe MD Signed: 03/17/2020 11:05 AM Workstation Name: [id number]
[2020-03-17 11:34] LABS: Basophils # (Auto) 0.1 K/mm3 (0.0-0.1); Basophils % (Auto) 0.6 % (0.0-1.8); Eosinophils % (Auto) 0.4 % (0.0-4.3); Hematocrit 32.1 % (30.3-42.9); Hemoglobin 10.7 gm/dl (10.1-14.3); Lymphocytes # (Auto) 2.1 K/mm3 (1.2-5.4); Lymphocytes % (Auto) 19.2 % (13.4-35.0); Mean Corpuscular HGB Conc 33 % (30-34); Mean Corpuscular Volume 83 fl (79-97); Monocytes # (Auto) 0.6 K/mm3 (0.0-0.8); Monocytes % (Auto) 5.4 % (0.0-7.3); Platelet Count 306 K/mm3 (140-440); Red Blood Count 3.86 M/mm3 (3.65-5.03); Red Cell Distribution Width 19.7 % (13.2-15.2)
[2020-03-17 11:42] LABS: INR 0.95 (0.87-1.13)
[2020-03-17 11:50] LABS: Creatine Kinase MB 5.3 ng/mL (0.0-4.0)
[2020-03-17] MEDS ORDERED: cloNIDine 0.2 MG TAB ONE (11:50)
[2020-03-17 11:51] LABS: BUN/Creatinine Ratio 21; Blood Urea Nitrogen 40 mg/dL (7-17); Calcium 8.3 mg/dL (8.4-10.2); Hemolysis Index 0
[2020-03-17] MEDS ORDERED: cloNIDine 0.2 MG TAB PO ONE (11:53)
--- NOTE | 2020-03-17 13:44 | History and Physical Report ---
History of Present Illness Chief complaint: Im short of breath History of present illness: 65 YO Female with COPD, PSA, Diastolic CHF, OA, HTN, CKD, GERD, Atrial Fib currently on Therapeutic Anticoagulation S/P Ablation, ETOH Dependence, Nicotine Dependence presents to ED for evaluation. Patient states that she has e xperienced shortness of breath over the past 4 days with persistent and worsening symptoms over the past 1 day. Patient states that she has not experienced improvement in symptoms with increased frequency of nebulizer therapy. Patient acknowledges productive cough with increased production of tenzin ar sputum, decreased exercise tolerance, shortness of breath, dyspnea on exertion, dyspnea at rest, Orthopnea as well as PND. EMS notified and upon arrival the patient was found to be in distress and subsequently transported to [facility] for further care and evaluation of the aforementioned symptoms. Patient seen and evaluated in the emergency department. All lab and imaging studies reviewed. Patient found to have a pulse oximetry of 80% on room air which is consistent with acute hypoxemic respiratory failure. Patient also found to have symptoms consistent with CHF decompensation as well as hypertensive emergency with a blood pressure of 216/110. Patient treated with supplemental oxygen, IV steroid therapy, as well as CHF protocol. Patient admitted to telemetry due to increased risk of multi organ system decompensation. Patient denies fever, chills, chest pain, palpitation, skin rash, recent ill contacts, or known exposure to COVID-19. All medication listed at time of admission have been reconciled at the time of admission. Advanced care planning conducted in ED. prior admission on 12/08/2019 reviewed. Past History Past Medical History: atrial fib, arthritis, COPD, GERD, heart failure, hypertension, other (See HPI) Past Surgical History: cholecystectomy, hysterectomy, Other (Rotator cuff surgery, cardiac ablation) Social history: , smoking, alcohol abuse Family history: diabetes, hypertension Medications and Allergies Allergies Allergy/AdvReac Type Severity Reaction Status Date / Time codeine Allergy Rash Verified 08/05/19 18:06 Sulfa (Sulfonamide Allergy Rash Verified 08/05/19 18:06 Antibiotics) lisinopril AdvReac Unknown Verified 08/05/19 18:06 Home Medications Medication Instructions Recorded Confirmed Last Taken Type AtorvaSTATin [Lipitor] 40 mg PO QHS #30 tablet 11/13/19 03/17/20 1 Day Ago Rx ~03/16/20 Furosemide [Lasix TAB] 20 mg PO QDAY #20 tablet 11/13/19 03/17/20 1 Day Ago Rx ~03/16/20 Acetaminophen [Acetaminophen TAB] 650 mg PO Q4H PRN tablet 12/10/19 03/17/20 Unknown Rx Apixaban [Eliquis] 2.5 mg PO BID tablet 12/10/19 03/17/20 1 Day Ago Rx ~03/16/20 Metoclopramide [Reglan TAB] 10 mg PO ACHS tablet 12/10/19 03/17/20 1 Day Ago Rx ~03/16/20 carvediloL [Coreg] 6.25 mg PO BID tablet 12/10/19 03/17/20 1 Day Ago Rx ~03/16/20 hydrOXYzine PAMOATE [Vistaril] 50 mg PO Q6HR PRN capsule 12/10/19 03/17/20 1 Day Ago Rx ~03/16/20 Losartan [Cozaar] 50 mg PO QDAY 03/17/20 03/17/20 1 Day Ago History ~03/16/20 Omeprazole 20 mg PO QDAY 03/17/20 03/17/20 1 Day Ago History ~03/16/20 Review of Systems Constitutional: no weight loss, no weight gain, no fever, no chills Ears, nose, mouth and throat: no ear pain, no ear discharge, no decreased hearing, no nose pain, no nasal congestion Cardiovascular: orthopnea, shortness of breath, dyspnea on exertion, paroxysmal nocturnal dyspnea, decreased exercise tolerance, no chest pain, no rapid/irregular heart beat Respiratory: cough, cough with sputum, excessive sputum, shortness of breath, no congestion, no pain on inspiration Gastrointestinal: no abdominal pain, no nausea, no vomiting, no diarrhea, no constipation Genitourinary Female: no pelvic pain, no menorrhagia, no dysuria Rectal: no pain, no incontinence, no bleeding Musculoskeletal: no neck stiffness, no neck pain, no shooting arm pain, no arm numbness/tingling, no low back pain, no shooting leg pain Integumentary: no rash, no pruritis, no redness, no sores, no wounds Neurological: no transient paralysis, no paralysis, no weakness, no parathesias, no numbness, no tingling Psychiatric: no anxiety, no memory loss, no sleep disturbances, no insomnia, no hypersomnia, no change in appetite, no change in libido Endocrine: no cold intolerance, no polyphagia, no excessive thirst, no polyuria, no nocturia, no flushing Hematologic/Lymphatic: no easy bruising, no easy bleeding Allergic/Immunologic: no urticaria Exam - Constitutional Vitals: Temp Pulse Resp BP Pulse Ox 97.3 F L 83 15 164/80 100 03/17/20 10:23 03/17/20 13:00 03/17/20 13:00 03/17/20 13:00 03/17/20 13:00 General appearance: Present: mild distress - EENT Eyes: Present: PERRL ENT: hearing intact, clear oral mucosa - Neck Neck: Present: supple, normal ROM - Respiratory Respiratory effort: normal Respiratory: bilateral: diminished, rhonchi - Cardiovascular Rhythm: irregularly irregular Heart Sounds: Present: S1 & S2. Absent: rub, click - Extremities Extremities: pulses symmetrical Extremity abnormal: edema Peripheral Pulses: within normal limits - Abdominal General gastrointestinal: Present: soft, non-tender, non-distended, normal bowel sounds Female genitourinary: Present: normal - Integumentary Integumentary: Present: clear, warm, dry - Musculoskeletal Musculoskeletal: gait normal, strength equal bilaterally - Psychiatric Psychiatric: appropriate mood/affect, intact judgment & insight - Neurologic Neurologic: CNII-XII intact, moves all extremities HEART Score - HEART Score Troponin: Troponin T < 0.010 ng/mL (0.00-0.029) 03/17/20 10:48 Results - Labs CBC & Chem 7: 03/17/20 10:48 03/17/20 10:48 Labs: Abnormal lab results 03/17/20 03/17/20 Range/Units 10:48 10:48 RDW 19.7 H (13.2-15.2) % Seg Neutrophils % 74.4 H (40.0-70.0) % Seg Neutrophils # 8.1 H (1.8-7.7) K/mm3 Sodium 135 L (137-145) mmol/L Carbon Dioxide 21 L (22-30) mmol/L BUN 40 H (7-17) mg/dL Creatinine 1.9 H (0.6-1.2) mg/dL Calcium 8.3 L (8.4-10.2) mg/dL CK-MB (CK-2) 5.3 H (0.0-4.0) ng/mL CK-MB (CK-2) Rel Index 9.2 H (0-4) NT-Pro-B Natriuret Pep 79131 H (0-900) pg/mL Assessment and Plan - Patient Problems (1) Acute respiratory failure Current Visit: No Status: Acute Qualifiers: Respiratory failure complication: hypoxia Qualified Code(s): J96.01 - Acute respiratory failure with hypoxia Plan to address problem: Supplemental oxygen, pulse oximetry, nebulizer therapy, noninvasive positive pressure ventilation as clinically indicated, chest x-ray. (2) CHF exacerbation Current Visit: Yes Status: Acute Qualifiers: Heart failure type: diastolic Qualified Code(s): I50.33 - Acute on chronic diastolic (congestive) heart failure Plan to address problem: Strict I's/O, monitor urine output every shift, daily weight, afterload reduction, supportive care. (3) Hypertensive emergency Current Visit: Yes Status: Acute Plan to address problem: Monitor blood pressure every shift, continue medical management, resume clonidine therapy, supportive care. (4) Nicotine dependence Current Visit: Yes Status: Acute Qualifiers: Nicotine product type: cigarettes Substance use status: in withdrawal Qualified Code(s): F17.213 - Nicotine dependence, cigarettes, with withdrawal Plan to address problem: Supportive care, smoking cessation counseling, behavior change counseling, +15 minutes. (5) Pulmonary hypertension Current Visit: Yes Status: Acute Plan to address problem: Supportive care, submental oxygen, pulmonary team consulted, vasodilator therapy as per pulmonary team. (6) Alcohol abuse Current Visit: No Status: Acute Plan to address problem: CIWA protocol, thiamine, folic acid, multivitamin. (7) Polysubstance abuse Current Visit: No Status: Acute Plan to address problem: Patient counseled. Recommend outpatient substance abuse follow-up. (8) DVT prophylaxis Current Visit: No Status: Acute Plan to address problem: SCD to bilateral lower extremities while in bed, patient is ambulatory (9) Advance care planning Current Visit: No Status: Acute Plan to address problem: Disease education conducted, patient prognosis discussed, patient is full code, patient knowledges understanding and agreement with care plan, +30 minutes.
[2020-03-17] MEDS ORDERED: ACETAMINOPHEN 325 MG TAB PO PRN ×2 (13:56→13:59)
[2020-03-17] MEDS ORDERED: ALBUTEROL 2.5 MG/3 ML NEBU IH PRN (13:56)
[2020-03-17] MEDS ORDERED: LORazepam 2 MG/ML VIAL IV PRN (13:58)
[2020-03-17] MEDS ORDERED: ONDANSETRON 4 MG/2 ML INJ IV PRN (14:00)
[2020-03-17] MEDS ORDERED: hydrOXYzine PAMOATE 25 MG CAP ONE (16:59)
[2020-03-17] MEDS: FUROSEMIDE 20 MG/2 ML INJ IV SCH (17:39)
[2020-03-17] MEDS: METOCLOPRAMIDE 10 MG TAB PO SCH ×2 (17:39→22:27)
[2020-03-17] MEDS: dilTIAZem 30 MG TAB PO SCH (17:39)
[2020-03-17] MEDS: APIXABAN 2.5 MG TAB PO SCH (22:27)
[2020-03-17] MEDS: carvediloL 6.25 MG TAB PO SCH (22:27)
[2020-03-18] MEDS: dilTIAZem 30 MG TAB PO SCH ×4 (00:21→18:38)
[2020-03-18 05:44] LABS: Calcium 7.8 mg/dL (8.4-10.2)
[2020-03-18] MEDS: FUROSEMIDE 20 MG/2 ML INJ IV SCH ×2 (06:10→18:38)
--- NOTE | 2020-03-18 09:08 | Consultation ---
History of Present Illness Consult date: 03/18/20 Requesting physician: JULIANNE MCALLISTER Reason for consult: pulmonary hypertension History of present illness: 65 y/o female admitted with progressive dyspnea on exertion. Patient found to have BNP of >12K. CXR shows cardiomegaly pulmonary edema. She also endorsed 2 pillow orthopnea and PND. She has had no fever. Cough is not productive and no wheezing. Past History Past Medical History: atrial fib, arthritis, GERD, heart failure, hypertension, other (See HPI) Past Surgical History: cholecystectomy, hysterectomy, Other (Rotator cuff surgery, cardiac ablation) Social history: , smoking, alcohol abuse Family history: diabetes, hypertension Medications and Allergies Allergies Allergy/AdvReac Type Severity Reaction Status Date / Time codeine Allergy Rash Verified 08/05/19 18:06 Sulfa (Sulfonamide Allergy Rash Verified 08/05/19 18:06 Antibiotics) lisinopril AdvReac Unknown Verified 08/05/19 18:06 Home Medications Medication Instructions Recorded Confirmed Last Taken Type AtorvaSTATin [Lipitor] 40 mg PO QHS #30 tablet 11/13/19 03/17/20 1 Day Ago Rx ~03/16/20 Furosemide [Lasix TAB] 20 mg PO QDAY #20 tablet 11/13/19 03/17/20 1 Day Ago Rx ~03/16/20 Acetaminophen [Acetaminophen TAB] 650 mg PO Q4H PRN tablet 12/10/19 03/17/20 Unknown Rx Apixaban [Eliquis] 2.5 mg PO BID tablet 12/10/19 03/17/20 1 Day Ago Rx ~03/16/20 Metoclopramide [Reglan TAB] 10 mg PO ACHS tablet 12/10/19 03/17/20 1 Day Ago Rx ~03/16/20 carvediloL [Coreg] 6.25 mg PO BID tablet 12/10/19 03/17/20 1 Day Ago Rx ~03/16/20 hydrOXYzine PAMOATE [Vistaril] 50 mg PO Q6HR PRN capsule 12/10/19 03/17/20 1 Day Ago Rx ~03/16/20 Losartan [Cozaar] 50 mg PO QDAY 03/17/20 03/17/20 1 Day Ago History ~03/16/20 Omeprazole 20 mg PO QDAY 03/17/20 03/17/20 1 Day Ago History ~03/16/20 Active Meds: Active Medications Acetaminophen (Tylenol) 650 mg PO Q4H PRN PRN Reason: Pain MILD(1-3)/Fever >100.5/[place] Albuterol (Proventil) 2.5 mg IH Q4HRT PRN PRN Reason: Shortness Of Breath Apixaban (Eliquis) 2.5 mg PO BID [facility]; Protocol Last Admin: 03/17/20 22:27 Dose: 2.5 mg Documented by: Atorvastatin Calcium (Lipitor) 40 mg PO QHS [facility] Last Admin: 03/17/20 22:27 Dose: 40 mg Documented by: Carvedilol (Coreg) 6.25 mg PO BID [facility] Last Admin: 03/17/20 22:27 Dose: 6.25 mg Documented by: Diltiazem HCl (Cardizem) 30 mg PO Q6HR [facility] Last Admin: 03/18/20 06:10 Dose: 30 mg Documented by: Furosemide (Lasix) 20 mg IV 0600,1800 [facility] Last Admin: 03/18/20 06:10 Dose: 20 mg Documented by: Hydroxyzine Pamoate (Vistaril) 50 mg PO Q6HR PRN PRN Reason: Anxiety Last Admin: 03/17/20 17:01 Dose: 50 mg Documented by: Lorazepam (Ativan) 2 mg IV Q1HR PRN PRN Reason: CIWA-Ar 8-15 Metoclopramide HCl (Reglan) 10 mg PO ACHS [facility] Last Admin: 03/17/20 22:27 Dose: 10 mg Documented by: Ondansetron HCl (Zofran) 4 mg IV Q8H PRN PRN Reason: Nausea And Vomiting Sodium Chloride (Sodium Chloride Flush Syringe 10 Ml) 10 ml IV BID [facility] Last Admin: 03/17/20 22:27 Dose: 10 ml Documented by: Sodium Chloride (Sodium Chloride Flush Syringe 10 Ml) 10 ml IV PRN PRN PRN Reason: LINE FLUSH Last Admin: 03/18/20 06:16 Dose: 10 ml Documented by: Review of Systems All systems: negative Physical Examination Vital signs: Vital Signs Temp Resp Pulse Ox 97.3 F L 27 H 100 03/17/20 10:23 03/17/20 10:23 03/17/20 10:23 General appearance: no acute distress, alert Eyes: non-icteric ENT: oropharynx moist Neck: supple Effort: normal Ascultation: Bilateral: clear, diminished breath sounds Percussion: Bilateral: not dull Cardiovascular: regular rate and rhythm Gastrointestinal: normoactive bowel sounds Results - Laboratory Findings CBC and BMP: 03/17/20 10:48 03/18/20 04:49 PT/INR, D-dimer PT 12.9 Sec. (12.2-14.9) 03/17/20 10:48 INR 0.95 (0.87-1.13) 03/17/20 10:48 Abnormal lab findings: Abnormal Labs 03/17/20 03/17/20 03/18/20 10:48 10:48 04:49 RDW 19.7 H Seg Neutrophils % 74.4 H Seg Neutrophils # 8.1 H Sodium 135 L Carbon Dioxide 21 L BUN 40 H 48 H Creatinine 1.9 H 2.2 H Glucose 151 H Calcium 8.3 L 7.8 L CK-MB (CK-2) 5.3 H CK-MB (CK-2) Rel Index 9.2 H NT-Pro-B Natriuret Pep 50648 H - Diagnostic Findings Chest x-ray: image reviewed Assessment and Plan 65 y/o female with acute exacerbation of HF with preserved EF 1. Consult is for pulmonary hypertension, although it appears majority of issues are related to volume overload. Agree with BID diuretic therapy and may even need higher doses given renal disease. Stable on 2liters and comfortable. May need large doses of home diuretic to match output from here 2. No current indication for oral or IV steroids, please do not start 3. Most recent echo 4 months ago showed RVSP of 53, moderate pulmonary HTN. Can follow up in the office for further work up. Needs full PFT including lung volumes and dLCO 4. Patient was in hypertensive urgency on arrival. Has history of cocaine abuse/use in the past. Suggest checking UDS. Needs better afterload reduction. Thanks for the consult, will follow as needed. Patient has never followed up with us in the office and has never been seen by us.
[2020-03-18] MEDS: APIXABAN 2.5 MG TAB PO SCH ×2 (09:19→21:37)
[2020-03-18] MEDS: METOCLOPRAMIDE 10 MG TAB PO SCH ×4 (09:19→21:38)
[2020-03-18] MEDS: carvediloL 6.25 MG TAB PO SCH ×2 (09:19→21:38)
--- NOTE | 2020-03-18 11:40 | Consultation ---
History of Present Illness Consult date: 03/18/20 Consult reason: congestive heart failure History of present illness: This is a 65-year old woman with a history of heart failure with a preserved ejection fraction, paroxysmal atrial fibrillation, hypertension, COPD and pulmonary hypertension, chronic kidney disease and substance abuse. A cardiac catheterization 8 months ago showed moderate to severe pulmonary hypertension with a pulmonary artery systolic pressure of 60, angiographically normal coronary arteries, ejection fraction 45%. A follow up echocardiogram done at this hospital 4 months ago reports bi-atrial enlargement, mild aortic stenosis, moderate pulmonary hypertension, RVSP 55 mmHG, normal LVEF 55-60%. Patient is admitted with shortness of breath and uncontrolled hypertension. Systolic BP 190-216 on presentation. Chest x-ray shows no evidence of interstitial edema. Laboratory studies shows an elevated pBNP and a creatinine of 2.2. Patient reports since her initial treatment in the ED she is feeling better. Lower extremity edema has resolved. Past History Past Medical History: atrial fib, arthritis, GERD, heart failure, hypertension, other (See HPI) Past Surgical History: cholecystectomy, hysterectomy, Other (Rotator cuff surgery, cardiac ablation) Social history: , smoking, alcohol abuse Family history: diabetes, hypertension Medications and Allergies Allergies Allergy/AdvReac Type Severity Reaction Status Date / Time codeine Allergy Rash Verified 08/05/19 18:06 Sulfa (Sulfonamide Allergy Rash Verified 08/05/19 18:06 Antibiotics) lisinopril AdvReac Unknown Verified 08/05/19 18:06 Home Medications Medication Instructions Recorded Confirmed Last Taken Type AtorvaSTATin [Lipitor] 40 mg PO QHS #30 tablet 11/13/19 03/17/20 1 Day Ago Rx ~03/16/20 Furosemide [Lasix TAB] 20 mg PO QDAY #20 tablet 11/13/19 03/17/20 1 Day Ago Rx ~03/16/20 Acetaminophen [Acetaminophen TAB] 650 mg PO Q4H PRN tablet 12/10/19 03/17/20 Unknown Rx Apixaban [Eliquis] 2.5 mg PO BID tablet 12/10/19 03/17/20 1 Day Ago Rx ~03/16/20 Metoclopramide [Reglan TAB] 10 mg PO ACHS tablet 12/10/19 03/17/20 1 Day Ago Rx ~03/16/20 carvediloL [Coreg] 6.25 mg PO BID tablet 12/10/19 03/17/20 1 Day Ago Rx ~03/16/20 hydrOXYzine PAMOATE [Vistaril] 50 mg PO Q6HR PRN capsule 12/10/19 03/17/20 1 Day Ago Rx ~03/16/20 Losartan [Cozaar] 50 mg PO QDAY 03/17/20 03/17/20 1 Day Ago History ~03/16/20 Omeprazole 20 mg PO QDAY 03/17/20 03/17/20 1 Day Ago History ~03/16/20 Active Meds: Active Medications Acetaminophen (Tylenol) 650 mg PO Q4H PRN PRN Reason: Pain MILD(1-3)/Fever >100.5/C[place] Albuterol (Proventil) 2.5 mg IH Q4HRT PRN PRN Reason: Shortness Of Breath Apixaban (Eliquis) 2.5 mg PO BID [facility]; Protocol Last Admin: 03/18/20 09:19 Dose: 2.5 mg Documented by: Atorvastatin Calcium (Lipitor) 40 mg PO QHS [facility] Last Admin: 03/17/20 22:27 Dose: 40 mg Documented by: Carvedilol (Coreg) 6.25 mg PO BID [facility] Last Admin: 03/18/20 09:19 Dose: 6.25 mg Documented by: Diltiazem HCl (Cardizem) 30 mg PO Q6HR [facility] Last Admin: 03/18/20 06:10 Dose: 30 mg Documented by: Furosemide (Lasix) 20 mg IV 0600,1800 [facility] Last Admin: 03/18/20 06:10 Dose: 20 mg Documented by: Hydroxyzine Pamoate (Vistaril) 50 mg PO Q6HR PRN PRN Reason: Anxiety Last Admin: 03/17/20 17:01 Dose: 50 mg Documented by: Lorazepam (Ativan) 2 mg IV Q1HR PRN PRN Reason: CIWA-Ar 8-15 Metoclopramide HCl (Reglan) 10 mg PO ACHS [facility] Last Admin: 03/18/20 09:19 Dose: 10 mg Documented by: Ondansetron HCl (Zofran) 4 mg IV Q8H PRN PRN Reason: Nausea And Vomiting Sodium Chloride (Sodium Chloride Flush Syringe 10 Ml) 10 ml IV BID [facility] Last Admin: 03/18/20 09:19 Dose: 10 ml Documented by: Sodium Chloride (Sodium Chloride Flush Syringe 10 Ml) 10 ml IV PRN PRN PRN Reason: LINE FLUSH Last Admin: 03/18/20 06:16 Dose: 10 ml Documented by: Physical Examination Vital Signs Temp Resp Pulse Ox 97.3 F L 27 H 100 03/17/20 10:23 03/17/20 10:23 03/17/20 10:23 General appearance: no acute distress HEENT: Positive: PERRL Neck: Positive: trachea midline Cardiac: Positive: Reg Rate and Rhythm Lungs: Positive: Decreased Breath Sounds Neuro: Positive: Grossly Intact Extremities: Absent: edema Results 03/17/20 10:48 03/18/20 04:49 Cardiac Enzymes 03/17/20 Range/Units 10:48 CK-MB (CK-2) 5.3 H (0.0-4.0) ng/mL Coagulation 03/17/20 Range/Units 10:48 PT 12.9 (12.2-14.9) Sec. INR 0.95 (0.87-1.13) Comprehensive Metabolic Panel 03/17/20 03/18/20 Range/Units 10:48 04:49 Sodium 135 L 138 (137-145) mmol/L Potassium 4.3 4.8 (3.6-5.0) mmol/L Chloride 101.0 101.6 (98-107) mmol/L Carbon Dioxide 21 L 22 (22-30) mmol/L BUN 40 H 48 H (7-17) mg/dL Creatinine 1.9 H 2.2 H (0.6-1.2) mg/dL Glucose 93 151 H (65-100) mg/dL Calcium 8.3 L 7.8 L (8.4-10.2) mg/dL Assessment and Plan Heart failure with preserved ejection fraction Hx of schizo-affective disorder with depression Hx of Anxiety Chronic renal failure Hypertension Tobacco abuse Hx of paroxysmal atrial fibrillation s/p ablation per pt while living in [place] a year ago Hx of Substance abuse An echocardiogram done 10/2019 reports bi-atrial enlargement, mild aortic stenosis, moderate pulmonary hypertension, RVSP 55 mmHG, normal LVEF 55-60%. R/C 07/2019 findings: Moderate-severe pulm hypertension, PASP 60. No significant aortic stenosis. Normal coronaries. LVEF 45%. Recommendations: Optimal blood pressure control. Dietary restrictions. Medical management of heart failure with a preserved ejection fraction. Otherwise, conservative cardiac management.
--- NOTE | 2020-03-18 18:41 | Progress Note ---
Assessment and Plan Assessment and plan: -- Acute respiratory failure Current Visit: No Status: Acute Plan to address problem: Multifactorial, oxygen titrate O2 sats to more than 90% BiPAP as needed, pulmonary following --Acute on chronic diastolic CHF/ EF 55 to 60% Current Visit: Yes Status: Acute Plan to address problem: Antifailure medications Cardiology following -- Hypertensive emergency Current Visit: Yes Status: Acute Plan to address problem: Moderate control , continue current antihypertensives and as needed medications --Ongoing tobacco use; Current Visit: Yes Status: Acute smoking cessation counseling, Nicotine patch as needed --Acute on chronic kidney disease stage III Current Visit: Yes Status: Acute Plan to address problem: due to vasomotor nephropathy Gentle hydration, monitor renal function, avoid nephrotoxin Nephrology consult --Pulmonary hypertension Current Visit: Yes Status: Acute Plan to address problem: Supportive care, submental oxygen, pulmonary team consulted, vasodilator therapy as per pulmonary team. --History of alcohol abuse Current Visit: No Status: Acute Plan to address problem: CIWA protocol, thiamine, folic acid, multivitamin. -- Polysubstance abuse Current Visit: No Status: Acute Plan to address problem: Patient counseled. Recommend outpatient substance abuse follow-up. --DVT prophylaxis Current Visit: No Status: Acute Plan to address problem: SCD to bilateral lower extremities while in bed, patient is ambulatory -- Advance care planning Current Visit: No Status: Acute Plan to address problem: Full CODE STATUS Plan of care reviewed with the patient Answered all her questions History Interval history: I have seen and examined the patient at the bedside this afternoon Patient's chart and medications reviewed Patient complains of mild shortness of breath Pulmonary evaluation and recommendations noted appreciated Vital signs noted Hospitalist Physical - Constitutional Vitals: Temp Pulse Resp BP Pulse Ox 98.9 F 67 20 141/65 99 03/18/20 11:16 03/18/20 17:00 03/18/20 11:16 03/18/20 11:16 03/18/20 11:16 General appearance: Present: no acute distress, well-nourished - EENT Eyes: Present: PERRL, EOM intact - Neck Neck: Present: supple, normal ROM - Respiratory Respiratory effort: normal Respiratory: bilateral: diminished, rales, negative: rhonchi, wheezing - Cardiovascular Rhythm: regular Heart Sounds: Present: S1 & S2 - Extremities Extremities: no ischemia, No edema - Abdominal General gastrointestinal: soft, non-tender, non-distended, normal bowel sounds - Integumentary Integumentary: Present: clear, warm - Psychiatric Psychiatric: appropriate mood/affect, cooperative - Neurologic Neurologic: moves all extremities HEART Score - HEART Score Troponin: Troponin T < 0.010 ng/mL (0.00-0.029) 03/17/20 10:48 Results - Labs CBC & Chem 7: 03/17/20 10:48 03/18/20 04:49 Labs: Laboratory Last Values WBC 10.8 K/mm3 (4.5-11.0) 03/17/20 10:48 RBC 3.86 M/mm3 (3.65-5.03) 03/17/20 10:48 Hgb 10.7 gm/dl (10.1-14.3) 03/17/20 10:48 Hct 32.1 % (30.3-42.9) 03/17/20 10:48 MCV 83 fl (79-97) 03/17/20 10:48 MCH 28 pg (28-32) 03/17/20 10:48 MCHC 33 % (30-34) 03/17/20 10:48 RDW 19.7 % (13.2-15.2) H 03/17/20 10:48 Plt Count 306 K/mm3 (140-440) 03/17/20 10:48 Lymph % (Auto) 19.2 % (13.4-35.0) 03/17/20 10:48 [place] % (Auto) 5.4 % (0.0-7.3) 03/17/20 10:48 Eos % (Auto) 0.4 % (0.0-4.3) 03/17/20 10:48 Baso % (Auto) 0.6 % (0.0-1.8) 03/17/20 10:48 Lymph # (Auto) 2.1 K/mm3 (1.2-5.4) 03/17/20 10:48 [place] # (Auto) 0.6 K/mm3 (0.0-0.8) 03/17/20 10:48 Eos # (Auto) 0.0 K/mm3 (0.0-0.4) 03/17/20 10:48 Baso # (Auto) 0.1 K/mm3 (0.0-0.1) 03/17/20 10:48 Seg Neutrophils % 74.4 % (40.0-70.0) H 03/17/20 10:48 Seg Neutrophils # 8.1 K/mm3 (1.8-7.7) H 03/17/20 10:48 PT 12.9 Sec. (12.2-14.9) 03/17/20 10:48 INR 0.95 (0.87-1.13) 03/17/20 10:48 Sodium 138 mmol/L (137-145) 03/18/20 04:49 Potassium 4.8 mmol/L (3.6-5.0) 03/18/20 04:49 Chloride 101.6 mmol/L (98-107) 03/18/20 04:49 Carbon Dioxide 22 mmol/L (22-30) 03/18/20 04:49 Anion Gap 19 mmol/L 03/18/20 04:49 BUN 48 mg/dL (7-17) H 03/18/20 04:49 Creatinine 2.2 mg/dL (0.6-1.2) H 03/18/20 04:49 Estimated GFR 27 ml/min 03/18/20 04:49 BUN/Creatinine Ratio 22 % 03/18/20 04:49 Glucose 151 mg/dL (65-100) H 03/18/20 04:49 Calcium 7.8 mg/dL (8.4-10.2) L 03/18/20 04:49 Total Creatine Kinase 57 units/L (30-135) 03/17/20 10:48 CK-MB (CK-2) 5.3 ng/mL (0.0-4.0) H 03/17/20 10:48 CK-MB (CK-2) Rel Index 9.2 (0-4) H 03/17/20 10:48 Troponin T < 0.010 ng/mL (0.00-0.029) 03/17/20 10:48 NT-Pro-B Natriuret Pep 22556 pg/mL (0-900) H 03/17/20 10:48 Stauffer/IV: Voiding Method Toilet IV Catheter Type [Left Hand] INT / Saline Lock IV Catheter Type [Left INT / Saline Lock Antecubital] Active Medications - Current Medications Current Medications: Generic Name Dose Route Start Last Admin Trade Name Freq PRN Reason Stop Dose Admin Acetaminophen 650 mg 03/17/20 13:59 Tylenol PO Q4H PRN Pain MILD(1-3)/Fever >100.5/[place] Albuterol 2.5 mg 03/17/20 13:56 Proventil IH Q4HRT PRN Shortness Of Breath Apixaban 2.5 mg 03/17/20 22:00 03/18/20 09:19 Eliquis PO 2.5 mg BID MARCIO Administration Protocol Atorvastatin Calcium 40 mg 03/17/20 22:00 03/17/20 22:27 Lipitor PO 40 mg QHS MARCIO Administration Carvedilol 6.25 mg 03/17/20 22:00 03/18/20 09:19 Coreg PO 6.25 mg BID MARCIO Administration Diltiazem HCl 30 mg 03/17/20 18:00 03/18/20 12:49 Cardizem PO 30 mg Q6HR MARCIO Administration Furosemide 20 mg 03/17/20 18:00 03/18/20 06:10 Lasix IV 20 mg 0600,1800 MARCIO Administration Hydroxyzine Pamoate 50 mg 03/17/20 13:59 03/18/20 12:49 Vistaril PO 50 mg Q6HR PRN Administration Anxiety Lorazepam 2 mg 03/17/20 13:58 Ativan IV Q1HR PRN CIWA-Ar 8-15 Metoclopramide HCl 10 mg 03/17/20 16:30 03/18/20 12:49 Reglan PO 10 mg ACHS MARCIO Administration Ondansetron HCl 4 mg 03/17/20 14:00 Zofran IV Q8H PRN Nausea And Vomiting Sodium Chloride 10 ml 03/17/20 22:00 03/18/20 09:19 Sodium Chloride Flush Syringe 10 Ml IV 10 ml BID MARCIO Administration Sodium Chloride 10 ml 03/17/20 13:56 03/18/20 06:16 Sodium Chloride Flush Syringe 10 Ml IV 10 ml PRN PRN Administration LINE FLUSH
[2020-03-18] MEDS: NICOTINE 21 MG/24 HR PATCH TD SCH (21:37)
[2020-03-19] MEDS: dilTIAZem 30 MG TAB PO SCH ×3 (00:48→11:38)
[2020-03-19] MEDS: FUROSEMIDE 20 MG/2 ML INJ IV SCH (06:37)
[2020-03-19] MEDS: METOCLOPRAMIDE 10 MG TAB PO SCH ×2 (08:28→11:38)
[2020-03-19] MEDS: APIXABAN 2.5 MG TAB PO SCH (09:26)
[2020-03-19] MEDS: NICOTINE 21 MG/24 HR PATCH TD SCH (09:26)
[2020-03-19] MEDS: carvediloL 6.25 MG TAB PO SCH (09:27)
--- NOTE | 2020-03-19 10:53 | Progress Note ---
Assessment and Plan Heart failure with preserved ejection fraction Hx of schizo-affective disorder with depression Hx of Anxiety Chronic renal failure Hypertension Tobacco abuse Hx of paroxysmal atrial fibrillation s/p ablation per pt while living in [place] a year ago Hx of Substance abuse An echocardiogram done 10/2019 reports bi-atrial enlargement, mild aortic stenosis, moderate pulmonary hypertension, RVSP 55 mmHG, normal LVEF 55-60%. R/LHC 07/2019 findings: Moderate-severe pulm hypertension, PASP 60. No significant aortic stenosis. Normal coronaries. LVEF 45%. Recommendations: Advised dietary restrictions. Continue medical management of heart failure with a preserved ejection fraction. Otherwise, conservative cardiac management. Subjective Date of service: 03/19/20 Interval history: Patient is sitting up in the bedside chair and appears well. She has no cardiac complaints. Objective Vital Signs Temp Pulse Pulse Resp BP BP Pulse Ox 03/19/20 07:13 98.0 F 68 18 161/63 95 03/19/20 06:37 69 146/55 03/19/20 06:25 98.6 F 59 L 16 146/55 97 03/19/20 03:43 60 03/19/20 00:48 71 140/54 03/18/20 23:28 98.2 F 63 16 140/54 100 03/18/20 21:38 74 161/58 03/18/20 21:20 97 03/18/20 20:03 97.8 F 70 20 161/58 98 03/18/20 19:15 76 03/18/20 17:00 67 03/18/20 16:38 99 H 03/18/20 15:46 98.3 F 73 20 151/57 98 03/18/20 11:16 98.9 F 67 20 141/65 99 - Physical Examination General: No Apparent Distress HEENT: Positive: PERRL Neck: Positive: trachea midline Cardiac: Positive: Reg Rate and Rhythm Lungs: Positive: Decreased Breath Sounds Neuro: Positive: Grossly Intact Extremities: Absent: edema
[2020-03-19 11:37] VITALS: BP 155/70
--- NOTE | 2020-03-19 12:52 | Discharge Summary ---
Providers - Providers Date of Admission: 03/17/20 13:56 Date of discharge: 03/19/20 Attending physician: SERGEY NAIR 03/17/20 18:04 Consult to Physician [CONS] Routine Comment: Consulting Provider: CATRACHITO DAVENPORT Physician Instructions: Reason For Exam: chf Consult to Physician [CONS] Routine Comment: Consulting Provider: CHUY DOVE Physician Instructions: Reason For Exam: Pulmonary HTN 03/19/20 07:40 Consult to Physician [CONS] Routine (Cancelled) Comment: Consulting Provider: DIMITRI MARCH Physician Instructions: Reason For Exam: Acute on chronic kidney disease Primary care physician: LYRIC SIBLEY MD Hospitalization Condition: Fair Disposition: DC-01 TO HOME OR SELFCARE Time spent for discharge: 32 min Core Measure Documentation - Palliative Care Palliative Care/ Comfort Measures: Not Applicable - Core Measures Any of the following diagnoses?: none Exam - Constitutional Vitals: Temp Pulse Resp BP Pulse Ox 98.3 F 67 20 155/70 93 03/19/20 11:12 03/19/20 11:12 03/19/20 11:12 03/19/20 11:12 03/19/20 11:12 General appearance: Present: no acute distress, well-nourished - EENT Eyes: Present: PERRL, EOM intact - Neck Neck: Present: supple, normal ROM - Respiratory Respiratory effort: normal Respiratory: bilateral: diminished, negative: rales, rhonchi, wheezing - Cardiovascular Rhythm: regular Heart Sounds: Present: S1 & S2 - Extremities Extremities: no ischemia, No edema - Abdominal General gastrointestinal: Present: soft, non-tender, non-distended, normal bowel sounds - Integumentary Integumentary: Present: clear, warm - Musculoskeletal Musculoskeletal: strength equal bilaterally - Psychiatric Psychiatric: appropriate mood/affect, cooperative - Neurologic Neurologic: moves all extremities Plan Activity: advance as tolerated Diet: other (Cardiac diet) Additional Instructions: Advised to see [facility] or private psychiatrist in 3 to 5 days. Strongly advised to comply with medications, diet, follow-up visits. Smoking cessation advised. Advised to quit recreational drug use Follow up with: CATRACHITO DAVENPORT MD [Staff Physician] - 7 Days DIMITRI MARCH MD [Staff Physician] - 7 Days LYRIC SIBLEY MD [Primary Care Provider] - 3-5 Days CHUY DOVE MD [Staff Physician] - 7 Days Prescriptions: dilTIAZem CD [Cardizem Cd] 120 mg PO DAILY #30 cap Nicotine [Habitrol] 21 mg TD QDAY #30 patch
== END 2020-03-19 15:34 | disposition home or self-care (01) | DRG 291 ==
LOC: ED 10:06 → 4A 13:56
PROVIDERS: ADMIT Internal Medicine; ATTEND Internal Medicine
DX: I13.0 Hypertensive heart and chronic kidney disease with heart failure and stage 1 through stage 4 chronic kidney disease, or unspecified chronic kidney disease (principal); N17.0 Acute kidney failure with tubular necrosis; I50.33 Acute on chronic diastolic (congestive) heart failure; J96.01 Acute respiratory failure with hypoxia; I16.1 Hypertensive emergency; I27.20 Pulmonary hypertension, unspecified; N18.30 Chronic kidney disease, stage 3 unspecified; K21.9 Gastro-esophageal reflux disease without esophagitis; I48.91 Unspecified atrial fibrillation; J44.9 Chronic obstructive pulmonary disease, unspecified; F17.200 Nicotine dependence, unspecified, uncomplicated; F19.10 Other psychoactive substance abuse, uncomplicated; F10.10 Alcohol abuse, uncomplicated; Y90.9 Presence of alcohol in blood, level not specified; M19.90 Unspecified osteoarthritis, unspecified site; F41.9 Anxiety disorder, unspecified; G47.33 Obstructive sleep apnea (adult) (pediatric); F25.9 Schizoaffective disorder, unspecified; Z90.49 Acquired absence of other specified parts of digestive tract; Z90.710 Acquired absence of both cervix and uterus; Z79.899 Other long term (current) drug therapy; Z88.5 Allergy status to narcotic agent
CPT/HCPCS: 36415; 71045; 80048; 82550; 82553; 83880; 84484; 85025; 85610; 93005; 94760; 96374; 99406; G0378; A9270-GY; J1940; J2930; Q0177

== ENCOUNTER 2020-03-24 06:40 | Observation (INO) | payer MEDICARE ==
[2020-03-24] MEDS ORDERED: methylPREDNISolone Sod Succinate 125 MG/2 ML INJ IV ONE (06:51)
[2020-03-24] MEDS ORDERED: ALBUTEROL 2.5 MG/3 ML NEBU IH ONE ×2 (06:51→09:09)
[2020-03-24] MEDS ORDERED: IPRATROPIUM 0.02% NEBU 2.5 ML IH ONE ×2 (06:51→09:09)
[2020-03-24] MEDS ORDERED: MAGNESIUM SULFATE 2 GM/50 ML BAG IV ONE (06:51)
[2020-03-24] MEDS ORDERED: NITROGLYCERIN 2% OINT 1 GM TP ONE (06:53)
--- NOTE | 2020-03-24 07:20 | XRay Report ---
CHEST 1 VIEW 03/24/2020 6:02 AM INDICATION / CLINICAL INFORMATION: resp distress. COMPARISON: 03/17/20 FINDINGS: SUPPORT DEVICES: None. HEART / MEDIASTINUM: Heart is mildly enlarged but stable. LUNGS / PLEURA: Mild interstitial edema appear similar to the previous study. No acute airspace disea se. No pneumothorax. ADDITIONAL FINDINGS: No significant additional findings. IMPRESSION: 1. Mild cardiomegaly and pulmonary edema. Signer Name: Hodan Mccarthy MD Signed: 03/24/2020 7:15 AM Workstation Name: [id number]
[2020-03-24 07:36] LABS: Basophils # (Auto) 0.1 K/mm3 (0.0-0.1); Basophils % (Auto) 0.7 % (0.0-1.8); Eosinophils # (Auto) 0.2 K/mm3 (0.0-0.4); Eosinophils % (Auto) 1.4 % (0.0-4.3); Hemoglobin 9.3 gm/dl (10.1-14.3); Lymphocytes # (Auto) 2.6 K/mm3 (1.2-5.4); Lymphocytes % (Auto) 23.1 % (13.4-35.0); Mean Corpuscular HGB Conc 32 % (30-34); Mean Corpuscular Volume 83 fl (79-97); Monocytes # (Auto) 1.3 K/mm3 (0.0-0.8); Monocytes % (Auto) 11.7 % (0.0-7.3); Platelet Count 257 K/mm3 (140-440); Red Blood Count 3.51 M/mm3 (3.65-5.03); Red Cell Distribution Width 19.4 % (13.2-15.2)
--- NOTE | 2020-03-24 07:36 | Emergency Department Report ---
ED Shortness of Breath HPI - General Chief Complaint: Dyspnea/Respdistress Stated Complaint: COPD EXACERBATION Time Seen by Provider: 03/24/20 06:47 Source: EMS Mode of arrival: Stretcher Limitations: No Limitations - History of Present Illness Initial Comments: Patient is a 65-year-old F Pan[place]ian female with a past medical history of hypertension COPD pulmonary hypertension who is presenting with respiratory distress. Patient states last night through the morning her breathing became more labored. Paramedics state that she was in the mid 80s were O2 sat on their arrival. Patient was respiratory distress and was placed on CPAP. We continued her on BiPAP. Patient states she has a mild cough but denies fevers nausea vomiting body aches. - Related Data Home Medications Medication Instructions Recorded Confirmed Last Taken Omeprazole 20 mg PO QDAY 03/17/20 03/17/20 1 Day Ago ~03/16/20 Previous Rx's Medication Instructions Recorded Last Taken Type AtorvaSTATin [Lipitor] 40 mg PO QHS #30 tablet 11/13/19 1 Day Ago Rx ~03/16/20 Acetaminophen [Acetaminophen TAB] 650 mg PO Q4H PRN tablet 12/10/19 Unknown Rx Apixaban [Eliquis] 2.5 mg PO BID tablet 12/10/19 1 Day Ago Rx ~03/16/20 Metoclopramide [Reglan TAB] 10 mg PO ACHS tablet 12/10/19 1 Day Ago Rx ~03/16/20 carvediloL [Coreg] 6.25 mg PO BID tablet 12/10/19 1 Day Ago Rx ~03/16/20 hydrOXYzine PAMOATE [Vistaril] 50 mg PO Q6HR PRN capsule 12/10/19 1 Day Ago Rx ~03/16/20 Nicotine [Habitrol] 21 mg TD QDAY #30 patch 03/19/20 Unknown Rx dilTIAZem CD [Cardizem Cd] 120 mg PO DAILY #30 cap 03/19/20 Unknown Rx Allergies Allergy/AdvReac Type Severity Reaction Status Date / Time codeine Allergy Rash Verified 08/05/19 18:06 Sulfa (Sulfonamide Allergy Rash Verified 08/05/19 18:06 Antibiotics) lisinopril AdvReac Unknown Verified 08/05/19 18:06 ED Review of Systems ROS: Stated complaint: COPD EXACERBATION Other details as noted in HPI Comment: All other systems reviewed and negative ED Past Medical Hx - Past Medical History Hx Hypertension: Yes Hx Heart Attack/AMI: Yes Hx Congestive Heart Failure: Yes Hx Diabetes: No Hx GERD: Yes Hx Renal Disease: Yes (stage 3) Hx Arthritis: Yes (Osteo) Hx Headaches / Migraines: No Hx Seizures: No Hx Psychiatric Treatment: Yes (SCHIZO-AFFECTIVE) Hx Asthma: Yes Hx COPD: Yes Hx Dementia: No Additional medical history: AFIB, bells palsy, back pain - Surgical History Hx Cholecystectomy: Yes Additional Surgical History: Cholecystectomy and hysterectomy, rt roary cuff, heart ablation - Social History Smoking Status: Current Every Day Smoker - Medications Home Medications: Home Medications Medication Instructions Recorded Confirmed Last Taken Type AtorvaSTATin [Lipitor] 40 mg PO QHS #30 tablet 11/13/19 03/17/20 1 Day Ago Rx ~03/16/20 Acetaminophen [Acetaminophen TAB] 650 mg PO Q4H PRN tablet 12/10/19 03/17/20 Unknown Rx Apixaban [Eliquis] 2.5 mg PO BID tablet 12/10/19 03/17/20 1 Day Ago Rx ~03/16/20 Metoclopramide [Reglan TAB] 10 mg PO ACHS tablet 12/10/19 03/17/20 1 Day Ago Rx ~03/16/20 carvediloL [Coreg] 6.25 mg PO BID tablet 12/10/19 03/17/20 1 Day Ago Rx ~03/16/20 hydrOXYzine PAMOATE [Vistaril] 50 mg PO Q6HR PRN capsule 12/10/19 03/17/20 1 Day Ago Rx ~03/16/20 Omeprazole 20 mg PO QDAY 03/17/20 03/17/20 1 Day Ago History ~03/16/20 Nicotine [Habitrol] 21 mg TD QDAY #30 patch 03/19/20 Unknown Rx dilTIAZem CD [Cardizem Cd] 120 mg PO DAILY #30 cap 03/19/20 Unknown Rx ED Physical Exam - General Limitations: No Limitations General appearance: alert, in distress - Head Head exam: Present: atraumatic, normocephalic - Eye Eye exam: Present: normal appearance - ENT ENT exam: Present: mucous membranes moist - Neck Neck exam: Present: normal inspection - Respiratory Respiratory exam: Present: respiratory distress, wheezes, rales. Absent: normal lung sounds bilaterally, rhonchi - Cardiovascular Cardiovascular Exam: Present: regular rate, normal rhythm, normal heart sounds. Absent: systolic murmur, diastolic murmur, rubs, gallop - GI/Abdominal GI/Abdominal exam: Present: soft, normal bowel sounds. Absent: distended, tenderness, guarding - Extremities Exam Extremities exam: Present: normal inspection - Back Exam Back exam: Present: normal inspection - Neurological Exam Neurological exam: Present: alert, oriented X3 - Psychiatric Psychiatric exam: Present: normal affect, normal mood - Skin Skin exam: Present: warm, dry, intact, normal color. Absent: rash ED Course Vital Signs 03/24/20 03/24/20 03/24/20 06:44 06:45 06:50 Pulse Rate 86 84 89 Respiratory 17 17 28 H Rate Blood Pressure Blood Pressure 174/89 [Right] O2 Sat by Pulse 100 100 98 Oximetry 03/24/20 03/24/20 03/24/20 07:00 07:15 07:31 Pulse Rate 86 75 83 Respiratory 19 30 H 25 H Rate Blood Pressure 175/89 177/70 177/70 Blood Pressure [Right] O2 Sat by Pulse 100 98 98 Oximetry 03/24/20 03/24/20 07:37 07:45 Pulse Rate 81 71 Respiratory 33 H Rate Blood Pressure 134/64 Blood Pressure [Right] O2 Sat by Pulse 100 Oximetry ED Medical Decision Making - Lab Data Result diagrams: 03/24/20 07:01 03/24/20 07:01 Lab Results 03/24/20 03/24/20 03/24/20 Range/Units 07:01 07:01 07:01 WBC 11.1 H (4.5-11.0) K/mm3 RBC 3.51 L (3.65-5.03) M/mm3 Hgb 9.3 L (10.1-14.3) gm/dl Hct 29.0 L (30.3-42.9) % MCV 83 (79-97) fl MCH 27 L (28-32) pg MCHC 32 (30-34) % RDW 19.4 H (13.2-15.2) % Plt Count 257 (140-440) K/mm3 Lymph % (Auto) 23.1 (13.4-35.0) % [place] % (Auto) 11.7 H (0.0-7.3) % Eos % (Auto) 1.4 (0.0-4.3) % Baso % (Auto) 0.7 (0.0-1.8) % Lymph # (Auto) 2.6 (1.2-5.4) K/mm3 [place] # (Auto) 1.3 H (0.0-0.8) K/mm3 Eos # (Auto) 0.2 (0.0-0.4) K/mm3 Baso # (Auto) 0.1 (0.0-0.1) K/mm3 Seg Neutrophils % 63.1 (40.0-70.0) % Seg Neutrophils # 7.0 (1.8-7.7) K/mm3 Sodium 138 (137-145) mmol/L Potassium 4.2 (3.6-5.0) mmol/L Chloride 104.2 (98-107) mmol/L Carbon Dioxide 23 (22-30) mmol/L Anion Gap 15 mmol/L BUN 28 H (7-17) mg/dL Creatinine 2.0 H (0.6-1.2) mg/dL Estimated GFR 30 ml/min BUN/Creatinine Ratio 14 % Glucose 97 (65-100) mg/dL Lactic Acid 0.60 L (0.7-2.0) mmol/L Calcium 8.3 L (8.4-10.2) mg/dL Total Bilirubin 0.40 (0.1-1.2) mg/dL AST 32 (5-40) units/L ALT 42 (7-56) units/L Alkaline Phosphatase 112 (35-129) units/L Troponin T < 0.010 (0.00-0.029) ng/mL NT-Pro-B Natriuret Pep 8985 H (0-900) pg/mL Total Protein 5.9 L (6.3-8.2) g/dL Albumin 3.1 L (3.9-5) g/dL Albumin/Globulin Ratio 1.1 % - Radiology Data Patient: FRANCIA COATS MR#: [id number] : 1955 Acct:[id number] Age/Sex: 65 / F ADM Date: 03/24/20 Loc: ED Attending Dr: Ordering Physician: DARRICK RUBIN MD Date of Service: 03/24/20 Procedure(s): XR chest 1V ap Accession Number(s): [id number] cc: DARRICK RUBIN MD Fluoro Time In Minutes: CHEST 1 VIEW 03/24/2020 6:02 AM INDICATION / CLINICAL INFORMATION: resp distress. COMPARISON: 03/17/20 FINDINGS: SUPPORT DEVICES: None. HEART / MEDIASTINUM: Heart is mildly enlarged but stable. LUNGS / PLEURA: Mild interstitial edema appear similar to the previous study. No acute airspace disease. No pneumothorax. ADDITIONAL FINDINGS: No significant additional findings. IMPRESSION: 1. Mild cardiomegaly and pulmonary edema. Signer Name: Hodan Mccarthy MD Signed: 03/24/2020 7:15 AM Workstation Name: [employer] - Medical Decision Making Patient received 40 mg of Lasix prior to arrival to replace the Nitropaste on her chest for preload reduction. Patient given labetalol for blood pressure reduction. Blood pressure did decrease to the 130 systolic. I will continue the patient on BiPAP and the patient will be admitted. Critical Care Time: Yes (30) Critical care attestation.: If time is entered above; I have spent that time in minutes in the direct care of this critically ill patient, excluding procedure time. ED Disposition Clinical Impression: Acute respiratory distress, Pulmonary hypertension, Pulmonary edema, CKD (chronic kidney disease), COPD (chronic obstructive pulmonary disease), Hypertensive emergency Disposition: DC-09 OP ADMIT IP TO THIS HOSP Is pt being admited?: Yes Does the pt Need Aspirin: No Condition: Stable Time of Disposition: 08:38
[2020-03-24] MEDS: cefTRIAXone/NS 2 GM/100 ML 2 GM/100 ML BAG IV SCH (07:37)
[2020-03-24 07:49] LABS: Alanine Aminotransferase 42 units/L (7-56); Albumin 3.1 g/dL (3.9-5); BUN/Creatinine Ratio 14; Blood Urea Nitrogen 28 mg/dL (7-17); Calcium 8.3 mg/dL (8.4-10.2); Hemolysis Index 1
[2020-03-24] MEDS ORDERED: ONDANSETRON 4 MG/2 ML INJ IV PRN (10:33)
[2020-03-24] MEDS ORDERED: ACETAMINOPHEN 325 MG TAB PO PRN (10:33)
[2020-03-24] MEDS ORDERED: ALBUTEROL 2.5 MG/3 ML NEBU IH PRN (10:38)
[2020-03-24] MEDS ORDERED: oxyCODONE /ACETAMINOPHEN 5-325MG TAB PO PRN (10:38)
[2020-03-24] MEDS ORDERED: APIXABAN 5 MG TAB PO SCH (11:00)
[2020-03-24] MEDS ORDERED: carvediloL 12.5 MG TAB PO SCH (11:00)
--- NOTE | 2020-03-24 11:06 | History and Physical Report ---
History of Present Illness Date of examination: 03/24/20 Date of admission: 03/24/20 09:35 Chief complaint: sob Past History Past Medical History: arrhythmia, COPD, heart failure, hypertension, hyperlipidemia. denies: renal failure, seizures, stroke, sarcoidosis Past Surgical History: cholecystectomy, hysterectomy, Other (ablation) Social history: , Lives alone, smoking, alcohol abuse, other (polysubstance) Family history: hypertension Medications and Allergies Allergies Allergy/AdvReac Type Severity Reaction Status Date / Time codeine Allergy Rash Verified 08/05/19 18:06 Sulfa (Sulfonamide Allergy Rash Verified 08/05/19 18:06 Antibiotics) lisinopril AdvReac Unknown Verified 08/05/19 18:06 Home Medications Medication Instructions Recorded Confirmed Last Taken Type AtorvaSTATin [Lipitor] 40 mg PO QHS #30 tablet 11/13/19 03/17/20 1 Day Ago Rx ~03/16/20 Acetaminophen [Acetaminophen TAB] 650 mg PO Q4H PRN tablet 12/10/19 03/17/20 Unknown Rx Apixaban [Eliquis] 2.5 mg PO BID tablet 12/10/19 03/17/20 1 Day Ago Rx ~03/16/20 Metoclopramide [Reglan TAB] 10 mg PO ACHS tablet 12/10/19 03/17/20 1 Day Ago Rx ~03/16/20 carvediloL [Coreg] 6.25 mg PO BID tablet 12/10/19 03/17/20 1 Day Ago Rx ~03/16/20 hydrOXYzine PAMOATE [Vistaril] 50 mg PO Q6HR PRN capsule 12/10/19 03/17/20 1 Day Ago Rx ~03/16/20 Omeprazole 20 mg PO QDAY 03/17/20 03/17/20 1 Day Ago History ~03/16/20 Nicotine [Habitrol] 21 mg TD QDAY #30 patch 03/19/20 Unknown Rx dilTIAZem CD [Cardizem Cd] 120 mg PO DAILY #30 cap 03/19/20 Unknown Rx Active Meds: Active Medications Acetaminophen (Tylenol) 650 mg PO Q4H PRN PRN Reason: Pain MILD(1-3)/Fever >100.5/[place] Albuterol (Proventil) 2.5 mg IH Q4HRT PRN PRN Reason: Shortness Of Breath Alprazolam (Xanax) 0.125 mg PO Q8H PRN PRN Reason: Agitation Apixaban (Eliquis) 5 mg PO Q12HR [facility]; Protocol Apixaban (Eliquis) 2.5 mg PO BID [facility]; Protocol Atorvastatin Calcium (Lipitor) 40 mg PO QHS [facility] Budesonide (Pulmicort) 0.5 mg IH Q12HRT [facility] Carvedilol (Coreg) 12.5 mg PO BID [facility] Carvedilol (Coreg) 6.25 mg PO BID [facility] Diltiazem HCl (Cardizem Cd) 120 mg PO DAILY [facility] Famotidine (Pepcid) 20 mg IV BID [facility] Furosemide (Lasix) 20 mg IV BID@0600,1800 [facility] Hydroxyzine Pamoate (Vistaril) 50 mg PO Q6HR PRN PRN Reason: Anxiety Ceftriaxone Sodium (Rocephin/Ns 2 Gm/100 Ml) 2 gm in 100 mls @ 200 mls/hr IV Q24HR [facility]; Protocol Last Admin: 03/24/20 07:37 Dose: 200 mls/hr Documented by: Methylprednisolone Sodium Succinate (Solu-Medrol) 80 mg IV Q8HR [facility] Metoclopramide HCl (Reglan) 10 mg PO ACHS [facility] Nicotine (Habitrol) 21 mg TD QDAY [facility] Ondansetron HCl (Zofran) 4 mg IV Q8H PRN PRN Reason: Nausea And Vomiting Oxycodone/Acetaminophen (Percocet 5/325) 1 tab PO Q6H PRN PRN Reason: Pain, Moderate (4-6) Potassium Chloride (K-Dur) 10 meq PO BID [facility] Sodium Chloride (Sodium Chloride Flush Syringe 10 Ml) 10 ml IV BID [facility] Sodium Chloride (Sodium Chloride Flush Syringe 10 Ml) 10 ml IV PRN PRN PRN Reason: LINE FLUSH Review of Systems Constitutional: poor appetite, no weight loss, no weight gain, no fever, no chills, no sweats, no night sweats, no anorexia, no fatigue, no weakness, no malaise, no lethargy Ears, nose, mouth and throat: no ear pain, no ear discharge, no nasal congestion, no mouth pain, no dysphagia, no sore throat, no swelling in mouth, no post-nasal drip, no headache Cardiovascular: shortness of breath, dyspnea on exertion, paroxysmal nocturnal dyspnea, high blood pressure, leg edema, no chest pain, no orthopnea, no rapid/irregular heart beat, no lightheadedness, no decreased exercise tolerance Respiratory: cough, shortness of breath, dyspnea on exertion, wheezing, sleep apnea, no hemoptysis, no congestion, no pleurisy, no pain, no pain on inspiration, no snoring, no respiratory infections, no home oxygen Gastrointestinal: no nausea, no vomiting, no diarrhea, no hematochezia, no early satiety, no heartburn, no jaundice, no early satiety Menstruation: currently menstrual Musculoskeletal: muscle weakness, no neck stiffness, no neck pain, no arm numbness/tingling, no low back pain, no shooting leg pain, no morning stiffness, no muscle cramps, no limitation of motion, no gait dysfunction, no frequent falls, no loss of height Neurological: no head injury, no weakness, no parathesias, no tingling, no tremors, no ataxia, no headaches, no tic, no changes in smell/taste, no sensory deficit, no double vision Psychiatric: anxiety, depression, no memory loss, no change in sleep habits, no sleep disturbances, no insomnia, no hypersomnia, no disorientation, no anhedonia, no confusion, no irritability, no sadness/tearfullness Endocrine: no polyphagia, no excessive thirst, no recent glucocorticoid use Hematologic/Lymphatic: no easy bruising, no lymphadenopathy, no other Allergic/Immunologic: no wheezing, no gluten intolerance, no seasonal allergies Exam - Constitutional Vitals: Temp Pulse Resp BP Pulse Ox 67 20 145/64 97 03/24/20 09:30 03/24/20 09:30 03/24/20 09:30 03/24/20 09:30 General appearance: Present: mild distress - EENT Eyes: Present: PERRL ENT: hearing intact, clear oral mucosa - Neck Neck: Present: supple, normal ROM - Respiratory Respiratory: bilateral: diminished, wheezing - Cardiovascular Rhythm: regular - Extremities Extremities: pulses symmetrical Extremity abnormal: edema - Abdominal General gastrointestinal: Present: soft, non-tender, non-distended, normal bowel sounds - Musculoskeletal Musculoskeletal: generalized weakness - Psychiatric Psychiatric: appropriate mood/affect, intact judgment & insight - Neurologic Neurologic: CNII-XII intact, moves all extremities HEART Score - HEART Score History: Slightly suspicious EKG: Normal Age: 45-65 Risk factors: No known risk factors Troponin: Troponin T < 0.010 ng/mL (0.00-0.029) 03/24/20 07: Troponin: < normal limit HEART Score: 1 Results - Labs CBC & Chem 7: 03/24/20 07:01 03/24/20 07:01 Labs: Laboratory Last Values WBC 11.1 K/mm3 (4.5-11.0) H 03/24/20 07: RBC 3.51 M/mm3 (3.65-5.03) L 03/24/20 07:01 Hgb 9.3 gm/dl (10.1-14.3) L 03/24/20 07: Hct 29.0 % (30.3-42.9) L 03/24/20 07: MCV 83 fl (79-97) 03/24/20 07:01 MCH 27 pg (28-32) L 03/24/20 07: MCHC 32 % (30-34) 03/24/20 07: RDW 19.4 % (13.2-15.2) H 03/24/20 07:01 Plt Count 257 K/mm3 (140-440) 03/24/20 07:01 Lymph % (Auto) 23.1 % (13.4-35.0) 03/24/20 07:01 [place] % (Auto) 11.7 % (0.0-7.3) H 03/24/20 07:01 Eos % (Auto) 1.4 % (0.0-4.3) 03/24/20 07:01 Baso % (Auto) 0.7 % (0.0-1.8) 03/24/20 07:01 Lymph # (Auto) 2.6 K/mm3 (1.2-5.4) 03/24/20 07:01 [place] # (Auto) 1.3 K/mm3 (0.0-0.8) H 03/24/20 07:01 Eos # (Auto) 0.2 K/mm3 (0.0-0.4) 03/24/20 07:01 Baso # (Auto) 0.1 K/mm3 (0.0-0.1) 03/24/20 07:01 Seg Neutrophils % 63.1 % (40.0-70.0) 03/24/20 07:01 Seg Neutrophils # 7.0 K/mm3 (1.8-7.7) 03/24/20 07:01 Sodium 138 mmol/L (137-145) 03/24/20 07:01 Potassium 4.2 mmol/L (3.6-5.0) 03/24/20 07:01 Chloride 104.2 mmol/L (98-107) 03/24/20 07:01 Carbon Dioxide 23 mmol/L (22-30) 03/24/20 07:01 Anion Gap 15 mmol/L 03/24/20 07:01 BUN 28 mg/dL (7-17) H 03/24/20 07:01 Creatinine 2.0 mg/dL (0.6-1.2) H 03/24/20 07:01 Estimated GFR 30 ml/min 03/24/20 07:01 BUN/Creatinine Ratio 14 % 03/24/20 07:01 Glucose 97 mg/dL (65-100) 03/24/20 07:01 Lactic Acid 0.60 mmol/L (0.7-2.0) L 03/24/20 07:01 Calcium 8.3 mg/dL (8.4-10.2) L 03/24/20 07:01 Total Bilirubin 0.40 mg/dL (0.1-1.2) 03/24/20 07:01 AST 32 units/L (5-40) 03/24/20 07:01 ALT 42 units/L (7-56) 03/24/20 07:01 Alkaline Phosphatase 112 units/L (35-129) 03/24/20 07:01 Troponin T < 0.010 ng/mL (0.00-0.029) 03/24/20 07:01 NT-Pro-B Natriuret Pep 8985 pg/mL (0-900) H 03/24/20 07:01 Total Protein 5.9 g/dL (6.3-8.2) L 03/24/20 07:01 Albumin 3.1 g/dL (3.9-5) L 03/24/20 07:01 Albumin/Globulin Ratio 1.1 % 03/24/20 07:01 Microbiology: Microbiology 03/24/20 07:01 Peripheral/Venous Blood Culture - Preliminary Culture in Progress 03/24/20 07:01 Peripheral/Venous Blood Culture - Preliminary Culture in Progress Assessment and Plan Advance Directives: Yes VTE prophylaxis?: Chemical - Patient Problems (1) Acute respiratory distress Current Visit: Yes Status: Acute Plan to address problem: Multifactorial secondary to decompensated CHF and multiorgan system decompensation. Patient has wheezing and crackles consistent with COPD exacerbation and decompensated heart failure. I do feel polysubstance abuse plays a large role. Will place p -BiPAP Nebulizers every 6 hours as needed -Aggressive blood pressure control -Diuresis -Empiric antibiotics -IV Solu-Medrol (2) CKD (chronic kidney disease) Current Visit: Yes Status: Acute Qualifiers: Chronic kidney disease stage: stage 2 (mild) Qualified Code(s): N18.2 - Chronic kidney disease, stage 2 (mild) Plan to address problem: avoid nephrotoxic agents (3) COPD (chronic obstructive pulmonary disease) Current Visit: Yes Status: Acute Plan to address problem: COPD nebulizer treatments Solu-Medrol BiPAP for now. 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 With that pulmonology consult secondary to pulmonary edema. (4) Hypertensive emergency Current Visit: Yes Status: Acute Plan to address problem: will restart coreg amd cardiazem prn hydralazine (5) Pulmonary edema Current Visit: Yes Status: Acute Plan to address problem: iv lasix for cont diuresis for volume overload and pulmonary edema. (6) Pulmonary hypertension Current Visit: Yes Status: Acute Plan to address problem: Pulmonology consult. (7) Advance care planning Current Visit: No Status: Acute Plan to address problem: Discussed with advanced care planning. Patient asked which she a candidate for hospice. I do not feel that way at this particular time but I do not know the patient as well. Told patient to address this with her primary care physician who know her better. (8) Alcohol abuse Current Visit: No Status: Acute Plan to address problem: Patient should refrain from drinking I think she should not make a decision about hospice without being first sober from polysubstance abuse cocaine and alcohol. (9) Anxiety Current Visit: No Status: Acute (10) Atrial fibrillation Current Visit: No Status: Acute Qualifiers: Atrial fibrillation type: other persistent Plan to address problem: Patient is regular now will restart Eliquis she has had radioablation and has not had any problems with A. fib since that time. (11) Cocaine abuse Current Visit: No Status: Acute Plan to address problem: educated on abuse and lung dx (12) Polysubstance abuse Current Visit: No Status: Acute
[2020-03-24] MEDS ORDERED: METOCLOPRAMIDE 10 MG TAB PO SCH (11:30)
[2020-03-24] MEDS ORDERED: FAMOTIDINE 20 MG/2 ML INJ IV SCH (12:00)
--- NOTE | 2020-03-24 12:35 | Consultation ---
History of Present Illness Consult date: 03/24/20 Requesting physician: MANISHA SWAN Reason for consult: other (Acute Hypoxemic Respiratory Failure; Pulmonary HTN) History of present illness: PULMONARY/CCM CONSULT NOTE (Full dictation # [id number]) Please see dictated notes for full details Past History Past Medical History: arrhythmia, COPD, heart failure, hypertension, hyperlipidemia. denies: renal failure, seizures, stroke, sarcoidosis Past Surgical History: cholecystectomy, hysterectomy, Other (ablation) Social history: , Lives alone, smoking, alcohol abuse, other (polysubstance) Family history: hypertension Medications and Allergies Allergies Allergy/AdvReac Type Severity Reaction Status Date / Time codeine Allergy Rash Verified 08/05/19 18:06 Sulfa (Sulfonamide Allergy Rash Verified 08/05/19 18:06 Antibiotics) lisinopril AdvReac Unknown Verified 08/05/19 18:06 Home Medications Medication Instructions Recorded Confirmed Last Taken Type AtorvaSTATin [Lipitor] 40 mg PO QHS #30 tablet 11/13/19 03/24/20 03/23/20 Rx Acetaminophen [Acetaminophen TAB] 650 mg PO Q4H PRN tablet 12/10/19 03/24/20 Unknown Rx Apixaban [Eliquis] 2.5 mg PO BID tablet 12/10/19 03/24/20 03/23/20 Rx Metoclopramide [Reglan TAB] 10 mg PO ACHS tablet 12/10/19 03/24/20 03/23/20 Rx carvediloL [Coreg] 6.25 mg PO BID tablet 12/10/19 03/24/20 03/23/20 Rx hydrOXYzine PAMOATE [Vistaril] 50 mg PO Q6HR PRN capsule 12/10/19 03/24/20 1 Day Ago Rx ~03/16/20 Omeprazole 20 mg PO QDAY 03/17/20 03/24/20 03/23/20 History Nicotine [Habitrol] 21 mg TD QDAY #30 patch 03/19/20 03/24/20 Unknown Rx dilTIAZem CD [Cardizem Cd] 120 mg PO DAILY #30 cap 03/19/20 03/24/20 03/23/20 Rx Active Meds: Active Medications Acetaminophen (Tylenol) 650 mg PO Q4H PRN PRN Reason: Pain MILD(1-3)/Fever >100.5/[place] Albuterol (Proventil) 2.5 mg IH Q4H PRN PRN Reason: Shortness Of Breath Alprazolam (Xanax) 0.125 mg PO Q8H PRN PRN Reason: Agitation Apixaban (Eliquis) 2.5 mg PO BID [facility]; Protocol Atorvastatin Calcium (Lipitor) 40 mg PO QHS [facility] Budesonide (Pulmicort) 0.5 mg IH Q12HRT [facility] Carvedilol (Coreg) 6.25 mg PO BID [facility] Diltiazem HCl (Cardizem Cd) 120 mg PO DAILY [facility] Famotidine (Pepcid) 10 mg IV BID [facility] Furosemide (Lasix) 20 mg IV BID@0600,1800 [facility] Hydroxyzine Pamoate (Vistaril) 50 mg PO Q6H PRN PRN Reason: Anxiety Ceftriaxone Sodium (Rocephin/Ns 2 Gm/100 Ml) 2 gm in 100 mls @ 200 mls/hr IV Q24HR [facility]; Protocol Last Admin: 03/24/20 07:37 Dose: 200 mls/hr Documented by: Methylprednisolone Sodium Succinate (Solu-Medrol) 80 mg IV Q8H [facility] Metoclopramide HCl (Reglan) 5 mg PO ACHS [facility] Nicotine (Habitrol) 21 mg TD QDAY [facility] Ondansetron HCl (Zofran) 4 mg IV Q8H PRN PRN Reason: Nausea And Vomiting Oxycodone/Acetaminophen (Percocet 5/325) 1 tab PO Q6H PRN PRN Reason: Pain, Moderate (4-6) Potassium Chloride (K-Dur) 10 meq PO BID [facility] Sodium Chloride (Sodium Chloride Flush Syringe 10 Ml) 10 ml IV BID [facility] Sodium Chloride (Sodium Chloride Flush Syringe 10 Ml) 10 ml IV PRN PRN PRN Reason: LINE FLUSH Physical Examination Vital signs: Vital Signs Pulse Resp Pulse Ox 86 17 100 03/24/20 06:44 03/24/20 06:44 03/24/20 06:44 Results - Laboratory Findings CBC and BMP: 03/24/20 07:01 03/24/20 07:01 Abnormal lab findings: Abnormal Labs 03/24/20 03/24/20 03/24/20 07:01 07:01 07:01 WBC 11.1 H RBC 3.51 L Hgb 9.3 L Hct 29.0 L MCH 27 L RDW 19.4 H [place] % (Auto) 11.7 H [place] # (Auto) 1.3 H BUN 28 H Creatinine 2.0 H Lactic Acid 0.60 L Calcium 8.3 L NT-Pro-B Natriuret Pep 8985 H Total Protein 5.9 L Albumin 3.1 L
[2020-03-24] MEDS ORDERED: POTASSIUM CHLORIDE ER 20 MEQ TAB PO ONE (12:53)
[2020-03-24] MEDS ORDERED: METOCLOPRAMIDE 10 MG TAB ONE ×2 (12:53→17:29)
[2020-03-24] MEDS ORDERED: carvediloL 6.25 MG TAB ONE (12:53)
[2020-03-24] MEDS ORDERED: APIXABAN 5 MG TAB ONE ×2 (12:54→17:23)
[2020-03-24] MEDS ORDERED: FAMOTIDINE 20 MG/2 ML INJ IV ONE (12:54)
[2020-03-24] MEDS ORDERED: dilTIAZem 30 MG TAB ONE (12:54)
[2020-03-24] MEDS: carvediloL 6.25 MG TAB PO SCH ×3 (13:11→22:18)
[2020-03-24] MEDS: APIXABAN 2.5 MG TAB PO SCH ×2 (13:11→22:16)
[2020-03-24] MEDS: POTASSIUM CHLORIDE ER 10 MEQ TAB PO SCH ×2 (13:52→22:18)
[2020-03-24] MEDS: FAMOTIDINE 20 MG/2 ML INJ IV SCH ×2 (13:52→22:20)
[2020-03-24] MEDS: METOCLOPRAMIDE 10 MG TAB PO SCH ×3 (13:53→22:19)
[2020-03-24] MEDS: NICOTINE 21 MG/24 HR PATCH TD SCH (16:23)
[2020-03-24] MEDS ORDERED: methylPREDNISolone Sod Succinate 40 MG/1 ML INJ ONE ×2 (17:22→17:43)
[2020-03-24] MEDS ORDERED: FUROSEMIDE 20 MG/2 ML INJ ONE (17:29)
[2020-03-24] MEDS: dilTIAZem CD 120 MG CAP PO SCH (17:41)
[2020-03-24] MEDS: FUROSEMIDE 20 MG/2 ML INJ IV SCH (17:42)
[2020-03-24] MEDS: methylPREDNISolone Sod Succinate 125 MG/2 ML INJ IV SCH ×2 (17:44→22:23)
--- NOTE | 2020-03-24 20:25 | Consultation ---
PULMONARY CONSULT NOTE CONSULTING PHYSICIAN: Anam Zhou MD REASON FOR CONSULTATION: Shortness of breath, pulmonary hypertension. CHIEF COMPLAINT AND HISTORY OF PRESENT ILLNESS: The patient is a now 65-year-old female with a past medical history significant for COPD for which she denies being on home oxygen who came into the Emergency Room complaining of shortness of breath, dyspnea on exertion, and orthopnea. When the paramedics got to her house, she was reportedly in the mid 80s. She was placed on bilevel positive air pressure ventilation therapy with some improvement. She complains of chills. She complains of generalized body aches. She is not sure if she has been around anyone with COVID-19 infection, but states she was recently in this hospital just about a week ago and at that time, she was given some antibiotics for similar symptoms. She does have a 10+ pack year tobacco smoking history, continues to smoke about half a pack a day. She denied any new leg pain or swelling either unilaterally or bilaterally or any suggestion of deep venous thrombosis. Denies a history of venous thromboembolic phenomenon. She has a cough productive of clear phlegm. She also complained of a history of chronic kidney disease but denies being on dialysis. When I stopped by to see her, she was resting in bed, sitting up in bed. Work of breathing was increased. She was complaining of chills. Not sure if she has had any fevers. Again, denied nausea, vomiting, or overt aspiration. This really is as much of the history of presentation as I have. PAST MEDICAL HISTORY: History of hypertension, history of congestive heart failure, history of coronary artery disease, history of gastroesophageal reflux disease, chronic kidney disease stage 3, arthritis, history of schizoaffective disorder, history of COPD, history of atrial fibrillation, history of Smiley's palsy, history of back pain. PAST SURGICAL HISTORY: She has had a cholecystectomy. She has had a hysterectomy. She has had right rotator cuff surgery and heart ablation. MEDICATIONS: She was on at the time I stopped by to see her were reviewed. Pertinent medications include the following: Tylenol 650 mg p.o. q. 4 hours p.r.n. mild pain or fevers, albuterol nebulizer treatments 2.5 mg nebulized q. 4 hours p.r.n. shortness of breath, Xanax 0.125 mg p.o. q. 8 hours p.r.n. agitation, Eliquis 2.5 mg p.o. b.i.d. scheduled, Lipitor 40 mg p.o. at bedtime, Pulmicort 0.5 mg nebulized q. 12 hours, Coreg 6.25 mg p.o. b.i.d., Rocephin 2 g IV daily, diltiazem 120 mg p.o. daily extended release, Pepcid 10 mg IV b.i.d., Lasix 20 mg IV b.i.d., Vistaril 50 mg p.o. q. 6 hours p.r.n. anxiety, Solu-Medrol 80 mg IV q. 8 hours, Reglan 5 mg p.o. q.a.c. and at bedtime scheduled, nicotine 21 mg per day patch, Zofran 4 mg IV q. 8 hours p.r.n. nausea and vomiting, p.r.n. Percocet 1 tablet p.o. q. 6 hours for moderate pain, and potassium chloride 10 mEq p.o. b.i.d. ALLERGIES: TO CODEINE, TO SULFA DRUGS, TO LISINOPRIL, NATURE OF THIS ALLERGY IS UNKNOWN. DIET: Obese lady. Denies acute weight loss or gain in the preceding few weeks to months. FAMILY AND SOCIAL HISTORY: Lives in the community. She has a 10+ pack year tobacco smoking history. Denies alcohol or illicit drug use or abuse. FAMILY HISTORY: Otherwise, noncontributory. REVIEW OF SYSTEMS: No loss of consciousness. No new onset seizures. No new onset focal weakness. Denies gross hematochezia or melena. Denies gross hematuria or dysuria. No hematemesis. No hemoptysis, no palpitations. Denies heat or cold intolerance. She has had the chills. Denies polydipsia or polyuria. She denies any new lumps, bumps, or swellings on her body. Complete 13-system review of systems obtained. Pertinent positives and/or negatives as in body of history above, otherwise noncontributory. PHYSICAL EXAMINATION: VITAL SIGNS: At presentation, she was afebrile, temperature 97.6 degrees Fahrenheit, pulse 86, respiratory rate 28, blood pressure 174/89, O2 sats 100%, inspired oxygen concentration at that time was not recorded. When I stopped by to see her, O2 saturations were 97% that was on 40% FiO2. GENERAL: She is an elderly looking female, normocephalic, atraumatic, talking with me with mostly full sentences, but with mildly increased respiratory effort at rest. HEAD, EYES, EARS, NOSE AND THROAT: Anicteric. No conjunctival erythema. Oropharynx was moist. Mallampati #3. No gross jugular venous distention, no thyromegaly. NECK: Grossly, there were no palpable lymph nodes in the supraclavicular or submandibular lymph node chains. LUNGS: Auscultation of both lung pierre revealed diminished bilateral breath movements bibasilar rales, left greater than right. No wheezing. Slightly prolonged expiratory phase. HEART: Heart sounds 1 and 2 are heard. They were regular in rate and rhythm at time of my evaluation without overt rubs or murmurs. ABDOMEN: Soft, full, bowel sounds are positive, nontender, no palpable hepatosplenomegaly. EXTREMITIES: Without overt digital clubbing or cyanosis. No pedal edema. Pedal pulses are 2+ bilaterally. NEUROLOGIC: Pupils are equal, round, about 4 mm, reactive to light. Extraocular muscle movements are intact. She moves all 4 extremities spontaneously. SKIN: Normal turgor in the areas examined without overt cellulitis or rash. She was very warm to touch. I really like she had a fever. Please see the wound care nurse's note for full description of her skin. PSYCHIATRIC: Her mood and affect were anxious. LABORATORY DATA: From my review are as follows: White cell count 11,100, hemoglobin 9.3, hematocrit 29.0, platelet count 257. No manual differential. Serum sodium 132, potassium 4.2, chloride 104, bicarbonate 23, BUN 28, creatinine 2.0, glucose was 97. Lactic acid level within normal limits. Liver function test within normal limits. BNP elevated at 8985. Albumin low at 3.1. Two sets of blood cultures, no growth to date. Chest x-ray has been reviewed. I am able to compare it with the chest x-ray from 03/17/2020, exactly about a week ago from now and perhaps looks a little bit better. She has increased interstitial markings bilaterally, basilar predominant with gross cardiomegaly, volume overload pattern. No significant pleural effusions, no pneumothorax. There is a predominance of the left lower lobe infiltrate in this film. ASSESSMENT: 1. Acute hypoxemic respiratory failure. 2. Acute chronic obstructive pulmonary disease exacerbation. 3. Pneumonia. 4. Person under investigation for COVID-19 infection. 5. Acute congestive heart failure exacerbation. 6. Tobacco use disorder. 7. Coronary artery disease. 8. Hypertension. 9. Gastroesophageal reflux disease. 10. Schizoaffective disorder. 11. Arthritis. 12. History of atrial fibrillation. 13. History of Smiley's palsy. PLAN: I will go ahead and test her for possible COVID-19 infection, just based on her constellation of symptoms and presentation and her visits to the healthcare-associated facilities and Emergency Room. We will keep her oxygen wean to keep sats greater than or equal to about 92%. Aspiration precautions will be maintained. I will treat her empirically for community-acquired pneumonia. We will add azithromycin to her medications. A procalcitonin level will be ordered. I will start her empirically on ascorbic acid and zinc supplementation. I will continue systemic steroids as ordered for now. Infectious Disease consultation will be at the behest of the attending physician. She will be placed in airborne and contact isolation until we get our results back. Bilevel positive airway pressure ventilation therapy will be on a p.r.n. basis to avoid aerosolization if possible. She is appropriately on GI and DVT prophylaxis. Flu and pneumonia vaccination will be addressed per protocol. Adjunctive COVID-19 therapies, I will defer to Infectious Disease if she does become positive. Serum inflammatory markers will be ordered to include ferritin levels, D-dimer levels, and trend it to aid clinical decision making. Thank you very much for the consult. We will follow along and make further recommendations as picture progresses/becomes clearer. JOB# [id number] NATHALIA/BERENICE
[2020-03-24] MEDS ORDERED: BUDESONIDE 0.5 MG/2 ML NEBU IH ONE (21:11)
[2020-03-24] MEDS: BUDESONIDE 0.5 MG/2 ML NEBU IH SCH (21:44)
[2020-03-24] MEDS: ALPRAZolam 0.25 MG TAB PO PRN (22:17)
[2020-03-24] MEDS: ACETAMINOPHEN 325 MG TAB PO PRN (22:17)
[2020-03-24] MEDS: ZINC SULFATE 220 MG CAP PO SCH (22:19)
[2020-03-24] MEDS: ASCORBIC ACID 500 MG TAB PO SCH (22:19)
[2020-03-25] MEDS: FUROSEMIDE 20 MG/2 ML INJ IV SCH ×2 (06:18→17:13)
[2020-03-25] MEDS: methylPREDNISolone Sod Succinate 125 MG/2 ML INJ IV SCH ×3 (06:21→22:14)
--- NOTE | 2020-03-25 08:12 | Progress Note ---
Assessment and Plan - Patient Problems (1) Acute respiratory distress Current Visit: Yes Status: Acute Plan to address problem: Multifactorial secondary to decompensated CHF and multiorgan system decompensation. Patient has wheezing and crackles consistent with COPD exacerbation and decompensated heart failure. I do feel polysubstance abuse plays a large role. Will place p -BiPAP. Apparent much improved. Saturating 94% 2 L. Stable to transfer to unit. Continue aggressive treatment. Nebulizers every 6 hours as needed -Aggressive blood pressure control -Diuresis -Empiric antibiotics -IV Solu-Medrol (2) CKD (chronic kidney disease) Current Visit: Yes Status: Acute Qualifiers: Chronic kidney disease stage: stage 2 (mild) Qualified Code(s): N18.2 - Chronic kidney disease, stage 2 (mild) Plan to address problem: avoid nephrotoxic agents we will repeat BUN/creatinine today. Creatinine now 2.0. (3) COPD (chronic obstructive pulmonary disease) Current Visit: Yes Status: Acute Plan to address problem: COPD nebulizer treatments Solu-Medrol BiPAP for now. 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 With that pulmonology consult secondary to pulmonary edema. (4) Hypertensive emergency Current Visit: Yes Status: Acute Plan to address problem: Patient continues to have suboptimal control. Will increase Coreg to 12.5 twice daily (5) Pulmonary edema Current Visit: Yes Status: Acute Plan to address problem: iv lasix for cont diuresis for volume overload and pulmonary edema. (6) Pulmonary hypertension Current Visit: Yes Status: Acute Plan to address problem: Severe pulmonary hypertension. Patient appears possibly hospice appropriate. She does understand what hospice means. She does not want to come to the hospital and she feels she is suffering with pain and think hospice versus palliative care will help (7) Advance care planning Current Visit: No Status: Acute Plan to address problem: Hospice services. Patient is already may case management family aware. (8) Alcohol abuse Current Visit: No Status: Acute Plan to address problem: Patient should refrain from drinking I think she should not make a decision about hospice without being first sober from polysubstance abuse cocaine and alcohol. (9) Anxiety Current Visit: No Status: Acute (10) Atrial fibrillation Current Visit: No Status: Acute Qualifiers: Atrial fibrillation type: other persistent Plan to address problem: Patient is regular now will restart Eliquis she has had radioablation and has not had any problems with A. fib since that time. (11) Cocaine abuse Current Visit: No Status: Acute Plan to address problem: educated on abuse and lung dx (12) Polysubstance abuse Current Visit: No Status: Acute Subjective Date of service: 03/25/20 Principal diagnosis: Acute respiratory failure Interval history: Patient clinically looks better today. Off BiPAP. Patient still wheezing has profound dyspnea on exertion and dyspnea at rest. Can only speak about 5-6 sentences prior to an hypoxemic event. Patient has already spoken on her will with hospice from her insurance. Patient wishes to seek the hospice benefit. Objective - Constitutional Vitals: Vital Signs - 12hr 03/24/20 03/24/20 03/24/20 20:30 21:00 21:36 Temperature 97.9 F Pulse Rate 74 73 Pulse Rate [ Anterior Bilateral Throughout] Pulse Rate [ From Monitor] Respiratory 16 15 Rate Respiratory Rate [Anterior Bilateral Throughout] Blood Pressure 148/54 143/55 O2 Sat by Pulse 96 95 100 Oximetry 03/24/20 03/24/20 03/24/20 21:41 21:45 21:51 Temperature Pulse Rate 75 Pulse Rate [ 71 Anterior Bilateral Throughout] Pulse Rate [ From Monitor] Respiratory 15 Rate Respiratory 16 Rate [Anterior Bilateral Throughout] Blood Pressure 171/68 164/71 O2 Sat by Pulse 100 100 Oximetry 03/24/20 03/24/20 03/24/20 22:01 22:11 22:17 Temperature Pulse Rate 82 84 Pulse Rate [ Anterior Bilateral Throughout] Pulse Rate [ From Monitor] Respiratory 22 23 20 Rate Respiratory Rate [Anterior Bilateral Throughout] Blood Pressure 163/82 164/71 O2 Sat by Pulse 95 99 Oximetry 03/24/20 03/24/20 03/24/20 22:18 22:21 22:30 Temperature Pulse Rate 76 74 75 Pulse Rate [ Anterior Bilateral Throughout] Pulse Rate [ From Monitor] Respiratory 30 H 18 Rate Respiratory Rate [Anterior Bilateral Throughout] Blood Pressure 163/82 164/71 160/64 O2 Sat by Pulse 99 94 Oximetry 03/24/20 03/24/20 03/24/20 22:41 22:51 23:01 Temperature Pulse Rate 79 74 86 Pulse Rate [ Anterior Bilateral Throughout] Pulse Rate [ From Monitor] Respiratory 17 18 24 Rate Respiratory Rate [Anterior Bilateral Throughout] Blood Pressure 160/64 160/64 159/77 O2 Sat by Pulse 100 100 97 Oximetry 03/24/20 03/24/20 03/24/20 23:11 23:17 23:21 Temperature Pulse Rate 75 76 Pulse Rate [ Anterior Bilateral Throughout] Pulse Rate [ From Monitor] Respiratory 16 16 17 Rate Respiratory Rate [Anterior Bilateral Throughout] Blood Pressure 159/77 159/77 O2 Sat by Pulse 100 100 Oximetry 03/24/20 03/24/20 03/24/20 23:30 23:31 23:41 Temperature 97.6 F Pulse Rate 76 76 Pulse Rate [ Anterior Bilateral Throughout] Pulse Rate [ From Monitor] Respiratory 15 16 Rate Respiratory Rate [Anterior Bilateral Throughout] Blood Pressure 159/77 159/77 O2 Sat by Pulse 99 98 Oximetry 03/24/20 03/24/20 03/24/20 23:43 23:45 23:48 Temperature Pulse Rate 68 70 Pulse Rate [ Anterior Bilateral Throughout] Pulse Rate [ 70 From Monitor] Respiratory 16 17 Rate Respiratory Rate [Anterior Bilateral Throughout] Blood Pressure 159/77 O2 Sat by Pulse 100 100 Oximetry 03/24/20 03/25/20 03/25/20 23:51 00:00 00:31 Temperature Pulse Rate 70 69 71 Pulse Rate [ Anterior Bilateral Throughout] Pulse Rate [ From Monitor] Respiratory 17 18 16 Rate Respiratory Rate [Anterior Bilateral Throughout] Blood Pressure 159/77 146/57 146/57 O2 Sat by Pulse 100 96 100 Oximetry 03/25/20 03/25/20 03/25/20 01:00 02:00 03:00 Temperature Pulse Rate 69 67 68 Pulse Rate [ Anterior Bilateral Throughout] Pulse Rate [ From Monitor] Respiratory 16 16 18 Rate Respiratory Rate [Anterior Bilateral Throughout] Blood Pressure 130/51 141/58 122/51 O2 Sat by Pulse 99 95 99 Oximetry 03/25/20 03/25/20 03/25/20 03:33 03:43 04:00 Temperature 97.8 F Pulse Rate 64 Pulse Rate [ Anterior Bilateral Throughout] Pulse Rate [ From Monitor] Respiratory 18 16 Rate Respiratory Rate [Anterior Bilateral Throughout] Blood Pressure 114/60 O2 Sat by Pulse 99 99 Oximetry 03/25/20 03/25/20 03/25/20 05:01 05:02 06:01 Temperature Pulse Rate 74 70 68 Pulse Rate [ Anterior Bilateral Throughout] Pulse Rate [ From Monitor] Respiratory 17 20 11 L Rate Respiratory Rate [Anterior Bilateral Throughout] Blood Pressure 162/65 114/60 155/67 O2 Sat by Pulse 96 100 97 Oximetry General appearance: Present: mild distress - EENT Eyes: PERRL, EOM intact ENT: hearing intact, clear oral mucosa Ears: bilateral: normal - Respiratory Respiratory: right: other (Decreased breath sounds considerable wheezing poor air entry.), bilateral: diminished, rhonchi, wheezing - Cardiovascular Rhythm: regular Heart Sounds: Present: S1 & S2. Absent: gallop, rub Extremities: pulses intact, No edema, normal color, Full ROM - Gastrointestinal General gastrointestinal: Present: soft, non-tender, non-distended, normal bowel sounds - Musculoskeletal Musculoskeletal: generalized weakness - Labs CBC & Chem 7: 03/24/20 07:01 03/24/20 07:01 Labs: Abnormal lab results 03/24/20 03/24/20 Range/Units 15:26 15:26 D-Dimer 261.32 H (0-234) ng/mlDDU C-Reactive Protein 8.40 H (0.00-1.30) mg/dL - Imaging and cardiology Chest x-ray: image reviewed HEART Score - HEART Score EKG: Normal Age: 45-65 Risk factors: No known risk factors Troponin: Troponin T < 0.010 ng/mL (0.00-0.029) 03/24/20 07:01 Troponin: < normal limit
[2020-03-25] MEDS: BUDESONIDE 0.5 MG/2 ML NEBU IH SCH ×2 (08:48→22:03)
[2020-03-25] MEDS: METOCLOPRAMIDE 10 MG TAB PO SCH ×4 (08:57→22:05)
[2020-03-25] MEDS: FAMOTIDINE 20 MG/2 ML INJ IV SCH (09:00)
[2020-03-25] MEDS: cefTRIAXone/NS 2 GM/100 ML 2 GM/100 ML BAG IV SCH (09:00)
[2020-03-25] MEDS: dilTIAZem CD 120 MG CAP PO SCH (09:01)
[2020-03-25] MEDS: NICOTINE 21 MG/24 HR PATCH TD SCH (09:01)
[2020-03-25] MEDS: ZINC SULFATE 220 MG CAP PO SCH ×2 (09:01→22:32)
[2020-03-25] MEDS: POTASSIUM CHLORIDE ER 10 MEQ TAB PO SCH ×2 (09:01→22:07)
[2020-03-25] MEDS: ASCORBIC ACID 500 MG TAB PO SCH ×2 (09:01→22:07)
[2020-03-25] MEDS: carvediloL 6.25 MG TAB PO SCH ×2 (09:01→22:07)
[2020-03-25] MEDS: APIXABAN 2.5 MG TAB PO SCH ×2 (10:58→22:07)
[2020-03-25] MEDS: AZITHROMYCIN 500 MG in SODIUM CHLORIDE 0.9% 250ML 250 ML IV SCH (11:39)
--- NOTE | 2020-03-25 13:41 | Progress Note ---
Assessment and Plan Patient alert awake. Still complaining cough and shortness of breath. Patient is on 2 litres O2. O2 saturation 97%. Patient has heavy history of smoking. 2 packs x 53 years. Counseled to stop smoking. History of alcohol and drug abuse. Says not drinking alcohol or using drugs now. 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 Patient allergic to sulfa and codeine. Patient and she has 1 child. Patient has history of COPD , Hypertension and CKD and anxiety. Chest xray done 03/24/20 reported Mild cardiomegaly and pulmonary edema. Obtaining ABGs. Recommend PFTs as out patient. I spent critical care time of 40 minutes on this patient, reviewing the chart, obtaining history, examining the patient, review labs, chest xray ,talking to the respiratory therapy and nursing staff and work out plan of treatment. - Patient Problems (1) Acute respiratory distress Current Visit: Yes Status: Acute Plan to address problem: O2 2 litres via nasal canula. Albuterol/atrovent aerosol treatments q 6 hours. Continue I/V solumedrol. Patient is on zithromax and ceftriaxone. Patient is on Apixaban 2,5 mg po BID. Patient is on Famotidine. ABGs on room air. (2) COPD (chronic obstructive pulmonary disease) Current Visit: Yes Status: Acute Plan to address problem: O2 2 litres via nasal canula. Albuterol/atrovent aerosol treatments q 6 hours. Continue I/V solumedrol. Patient is on zithromax and ceftriaxone. Patient is on Apixaban 2,5 mg po BID. Patient is on Famotidine. Counseled to stop smoking. Patient is on Nicotin patch. Recommend PFTs as out patient. ABGs on room air. (3) Pulmonary hypertension Current Visit: Yes Status: Acute Plan to address problem: O2 supplementation Continue bronchodilators PFTs as out patient. Optimize treatment for CHF. (4) CKD (chronic kidney disease) Current Visit: Yes Status: Acute Qualifiers: Chronic kidney disease stage: stage 2 (mild) Qualified Code(s): N18.2 - Chronic kidney disease, stage 2 (mild) Plan to address problem: Management as per nephrology. (5) Hypertensive emergency Current Visit: Yes Status: Acute Plan to address problem: Management as per primary care. (6) Atrial fibrillation Current Visit: No Status: Acute Qualifiers: Atrial fibrillation type: other persistent Plan to address problem: Patient is on apixaban. Management as per cardiology. (7) CHF exacerbation Current Visit: No Status: Acute Qualifiers: Heart failure type: diastolic Qualified Code(s): I50.33 - Acute on chronic diastolic (congestive) heart failure Plan to address problem: Patient is on Coreg, Cardiazem and Lasix. Management as per cardiology. Subjective Date of service: 03/25/20 Principal diagnosis: Acute respiratory failure Interval history: Patient alert awake. Still complaining cough and shortness of breath. Patient is on 2 litres O2. O2 saturation 97%. Patient has heavy history of smoking. 2 packs x 53 years. Counseled to stop smoking. History of alcohol and drug abuse. Says not drinking alcohol or using drugs now. 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 Patient allergic to sulfa and codeine. Patient and she has 1 child. Patient has history of COPD , Hypertension and CKD and anxiety. Chest xray done 03/24/20 reported Mild cardiomegaly and pulmonary edema. Obtaining ABGs. Recommend PFTs as out patient. Objective Vital Signs - 12hr 03/25/20 03/25/20 03/25/20 02:00 03:00 03:33 Temperature 97.8 F Pulse Rate 67 68 Pulse Rate [ Anterior Bilateral Throughout] Pulse Rate [ From Monitor] Respiratory 16 18 Rate Respiratory Rate [Anterior Bilateral Throughout] Blood Pressure 141/58 122/51 O2 Sat by Pulse 95 99 Oximetry 03/25/20 03/25/20 03/25/20 03:43 04:00 05:01 Temperature Pulse Rate 64 74 Pulse Rate [ Anterior Bilateral Throughout] Pulse Rate [ From Monitor] Respiratory 18 16 17 Rate Respiratory Rate [Anterior Bilateral Throughout] Blood Pressure 114/60 162/65 O2 Sat by Pulse 99 99 96 Oximetry 03/25/20 03/25/20 03/25/20 05:02 06:01 07:00 Temperature Pulse Rate 70 68 74 Pulse Rate [ Anterior Bilateral Throughout] Pulse Rate [ 72 From Monitor] Respiratory 20 11 L 16 Rate Respiratory Rate [Anterior Bilateral Throughout] Blood Pressure 114/60 155/67 155/67 O2 Sat by Pulse 100 97 100 Oximetry 03/25/20 03/25/20 03/25/20 08:00 08:01 08:54 Temperature 98.5 F Pulse Rate 79 84 Pulse Rate [ 73 80 Anterior Bilateral Throughout] Pulse Rate [ From Monitor] Respiratory 15 Rate Respiratory 18 20 Rate [Anterior Bilateral Throughout] Blood Pressure 174/114 O2 Sat by Pulse 96 Oximetry 03/25/20 03/25/20 03/25/20 09:01 10:00 11:00 Temperature Pulse Rate 78 105 H Pulse Rate [ Anterior Bilateral Throughout] Pulse Rate [ 71 From Monitor] Respiratory 18 19 Rate Respiratory Rate [Anterior Bilateral Throughout] Blood Pressure 177/71 154/63 163/102 O2 Sat by Pulse 98 98 96 Oximetry 03/25/20 03/25/20 12:00 12:01 Temperature 98.7 F Pulse Rate 92 H 77 Pulse Rate [ Anterior Bilateral Throughout] Pulse Rate [ From Monitor] Respiratory 22 Rate Respiratory Rate [Anterior Bilateral Throughout] Blood Pressure 163/102 O2 Sat by Pulse 100 Oximetry Constitutional: no acute distress, alert Eyes: non-icteric ENT: oropharynx moist Neck: supple, no lymphadenopathy Ascultation: Bilateral: rales, other (Prolonged expiratory phase.) Cardiovascular: regular rate and rhythm Gastrointestinal: normoactive bowel sounds, soft, non-tender Integumentary: normal Extremities: no cyanosis, no edema Neurologic: normal mental status, non-focal exam, pupils equal and round, CN II- XII normal Psychiatric: anxious CBC and BMP: 03/24/20 07:01 03/24/20 07:01 ABG, PT/INR, D-dimer: PT/INR, D-dimer D-Dimer 261.32 ng/mlDDU (0-234) H 03/24/20 15:26 Abnormal lab findings: Abnormal Labs 03/24/20 03/24/20 03/24/20 07:01 07:01 07:01 WBC 11.1 H RBC 3.51 L Hgb 9.3 L Hct 29.0 L MCH 27 L RDW 19.4 H [place] % (Auto) 11.7 H [place] # (Auto) 1.3 H D-Dimer BUN 28 H Creatinine 2.0 H Lactic Acid 0.60 L Calcium 8.3 L C-Reactive Protein NT-Pro-B Natriuret Pep 8985 H Total Protein 5.9 L Albumin 3.1 L 03/24/20 03/24/20 15:26 15:26 WBC RBC Hgb Hct MCH RDW [place] % (Auto) [place] # (Auto) D-Dimer 261.32 H BUN Creatinine Lactic Acid Calcium C-Reactive Protein 8.40 H NT-Pro-B Natriuret Pep Total Protein Albumin Chest x-ray: report reviewed, image reviewed Additional Studies: CHEST 1 VIEW 03/24/2020 6:02 AM INDICATION / CLINICAL INFORMATION: resp distress. COMPARISON: 03/17/20 FINDINGS: SUPPORT DEVICES: None. HEART / MEDIASTINUM: Heart is mildly enlarged but stable. LUNGS / PLEURA: Mild interstitial edema appear similar to the previous study. No acute airspace disease. No pneumothorax. ADDITIONAL FINDINGS: No significant additional findings. IMPRESSION: 1. Mild cardiomegaly and pulmonary edema.
[2020-03-25] MEDS: ACETAMINOPHEN 325 MG TAB PO PRN (17:31)
[2020-03-25] MEDS: ALPRAZolam 0.25 MG TAB PO PRN (22:06)
[2020-03-25] MEDS: FAMOTIDINE 10 MG TAB PO SCH (22:08)
[2020-03-26] MEDS ORDERED: FUROSEMIDE 20 MG/2 ML INJ ONE ×2 (06:47→16:56)
[2020-03-26] MEDS ORDERED: carvediloL 6.25 MG TAB ONE (09:37)
[2020-03-26] MEDS ORDERED: NICOTINE 21 MG/24 HR PATCH TD ONE (09:37)
[2020-03-26] MEDS ORDERED: ASCORBIC ACID 500 MG TAB ONE (09:37)
[2020-03-26] MEDS ORDERED: METOCLOPRAMIDE 10 MG TAB ONE ×2 (09:37→16:56)
[2020-03-26] MEDS ORDERED: dilTIAZem CD 120 MG CAP PO ONE (09:37)
[2020-03-26] MEDS ORDERED: FAMOTIDINE 10 MG TAB ONE (09:37)
[2020-03-26] MEDS ORDERED: ALPRAZolam 0.25 MG TAB ONE (09:37)
[2020-03-26] MEDS ORDERED: POTASSIUM CHLORIDE ER 10 MEQ TAB PO ONE (09:37)
[2020-03-26] MEDS ORDERED: ALBUTEROL 2.5 MG/3 ML NEBU IH ONE (10:19)
[2020-03-26] MEDS ORDERED: methylPREDNISolone Sod Succinate 125 MG/2 ML INJ ONE (10:19)
[2020-03-26] MEDS: IPRATROPIUM/ALBUTEROL SULFATE 3 ML AMPUL.NEB IH SCH ×3 (17:07→21:18)
[2020-03-26] MEDS ORDERED: ALUM-MAG HYDROXIDE-SIMETHICONE 200-200-20MG/5ML ORAL LIQD 30 ML ONE ×2 (17:07)
--- NOTE | 2020-03-26 17:37 | Progress Note ---
Assessment and Plan Patient alert awake. Still complaining cough and shortness of breath. Patient is on room air O2 saturation 100%. Patient has heavy history of smoking. 2 packs x 53 years. Counseled to stop smoking. History of alcohol and drug abuse. Says not drinking alcohol or using drugs now. 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 Patient allergic to sulfa and codeine. Patient and she has 1 child. Patient has history of COPD , Hypertension and CKD and anxiety. Chest xray done 03/24/20 reported Mild cardiomegaly and pulmonary edema. Obtaining ABGs. Recommend PFTs as out patient. Patient undergoing physical therapy. - Patient Problems (1) Acute respiratory distress Current Visit: Yes Status: Acute Plan to address problem: O2 2 litres via nasal canula. Albuterol/atrovent aerosol treatments q 6 hours. Continue I/V solumedrol. Patient is on zithromax and ceftriaxone. Patient is on Apixaban 2,5 mg po BID. Patient is on Famotidine. ABGs on room air. (2) COPD (chronic obstructive pulmonary disease) Current Visit: Yes Status: Acute Plan to address problem: O2 2 litres via nasal canula. Albuterol/atrovent aerosol treatments q 6 hours. Continue I/V solumedrol. Patient is on zithromax and ceftriaxone. Patient is on Apixaban 2,5 mg po BID. Patient is on Famotidine. Counseled to stop smoking. Patient is on Nicotin patch. Recommend PFTs as out patient. ABGs on room air. (3) Pulmonary hypertension Current Visit: Yes Status: Acute Plan to address problem: O2 supplementation Continue bronchodilators PFTs as out patient. Optimize treatment for CHF. (4) CKD (chronic kidney disease) Current Visit: Yes Status: Acute Qualifiers: Chronic kidney disease stage: stage 2 (mild) Qualified Code(s): N18.2 - Chronic kidney disease, stage 2 (mild) Plan to address problem: Management as per nephrology. (5) Hypertensive emergency Current Visit: Yes Status: Acute Plan to address problem: Management as per primary care. (6) Atrial fibrillation Current Visit: No Status: Acute Qualifiers: Atrial fibrillation type: other persistent Plan to address problem: Patient is on apixaban. Management as per cardiology. (7) CHF exacerbation Current Visit: No Status: Acute Qualifiers: Heart failure type: diastolic Qualified Code(s): I50.33 - Acute on chronic diastolic (congestive) heart failure Plan to address problem: Patient is on Coreg, Cardiazem and Lasix. Management as per cardiology. Subjective Date of service: 03/26/20 Principal diagnosis: Acute respiratory failure Interval history: Patient alert awake. Still complaining cough and shortness of breath. Patient is on room air. O2 saturation 100%. Patient has heavy history of smoking. 2 packs x 53 years. Counseled to stop smoking. History of alcohol and drug abuse. Says not drinking alcohol or using drugs now. 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 Patient allergic to sulfa and codeine. Patient and she has 1 child. Patient has history of COPD , Hypertension and CKD and anxiety. Chest xray done 03/24/20 reported Mild cardiomegaly and pulmonary edema. Obtaining ABGs. Recommend PFTs as out patient. Patient undergoing physical therapy. Objective Vital Signs - 12hr 03/26/20 11:50 Pulse Rate [ 59 L Anterior Bilateral Throughout] Respiratory 17 Rate [Anterior Bilateral Throughout] Constitutional: no acute distress, alert Eyes: non-icteric ENT: oropharynx moist Neck: supple, no lymphadenopathy Ascultation: Bilateral: rales, other (Prolonged expiratory phase.) Cardiovascular: regular rate and rhythm Gastrointestinal: normoactive bowel sounds, soft, non-tender Integumentary: normal Extremities: no cyanosis, no edema Neurologic: normal mental status, non-focal exam, pupils equal and round, CN II- XII normal Psychiatric: anxious CBC and BMP: 03/24/20 07:01 03/24/20 07:01 ABG, PT/INR, D-dimer: PT/INR, D-dimer D-Dimer 261.32 ng/mlDDU (0-234) H 03/24/20 15:26 Abnormal lab findings: Abnormal Labs 03/24/20 03/24/20 03/24/20 07:01 07:01 07:01 WBC 11.1 H RBC 3.51 L Hgb 9.3 L Hct 29.0 L MCH 27 L RDW 19.4 H [place] % (Auto) 11.7 H [place] # (Auto) 1.3 H D-Dimer BUN 28 H Creatinine 2.0 H Lactic Acid 0.60 L Calcium 8.3 L C-Reactive Protein NT-Pro-B Natriuret Pep 8985 H Total Protein 5.9 L Albumin 3.1 L 03/24/20 03/24/20 15:26 15:26 WBC RBC Hgb Hct MCH RDW [place] % (Auto) [place] # (Auto) D-Dimer 261.32 H BUN Creatinine Lactic Acid Calcium C-Reactive Protein 8.40 H NT-Pro-B Natriuret Pep Total Protein Albumin
[2020-03-26] MEDS: BUDESONIDE 0.5 MG/2 ML NEBU IH SCH ×2 (17:48→21:19)
[2020-03-26] MEDS ORDERED: ALUM-MAG HYDROXIDE-SIMETHICONE 200-200-20MG/5ML ORAL LIQD 30 ML PO PRN (18:00)
[2020-03-26] MEDS: dilTIAZem CD 120 MG CAP PO SCH (19:37)
[2020-03-26] MEDS: methylPREDNISolone Sod Succinate 125 MG/2 ML INJ IV SCH ×2 (19:37→23:06)
[2020-03-26] MEDS: carvediloL 6.25 MG TAB PO SCH ×2 (19:37→21:36)
[2020-03-26] MEDS: FUROSEMIDE 20 MG/2 ML INJ IV SCH (19:37)
[2020-03-26] MEDS: METOCLOPRAMIDE 10 MG TAB PO SCH ×2 (19:37→21:36)
[2020-03-26] MEDS: FAMOTIDINE 10 MG TAB PO SCH ×2 (19:38→21:35)
[2020-03-26] MEDS: cefTRIAXone/NS 2 GM/100 ML 2 GM/100 ML BAG IV SCH (19:38)
[2020-03-26] MEDS: NICOTINE 21 MG/24 HR PATCH TD SCH (19:38)
[2020-03-26] MEDS: APIXABAN 2.5 MG TAB PO SCH ×2 (19:38→21:36)
[2020-03-26] MEDS: POTASSIUM CHLORIDE ER 10 MEQ TAB PO SCH ×2 (19:38→21:35)
[2020-03-26] MEDS: AZITHROMYCIN 500 MG in SODIUM CHLORIDE 0.9% 250ML 250 ML IV SCH (19:39)
[2020-03-26] MEDS: ASCORBIC ACID 500 MG TAB PO SCH ×2 (19:39→21:36)
[2020-03-26] MEDS: ZINC SULFATE 220 MG CAP PO SCH ×2 (19:39→21:35)
[2020-03-26] MEDS: ALPRAZolam 0.25 MG TAB PO PRN (21:35)
--- NOTE | 2020-03-26 23:03 | Progress Note ---
Assessment and Plan Assessment and plan: 03/26: States she is enrollong in Pallative care with hospice. Discussed with pulmonary, will adjust meds, recommend outpatient pulmonary eval - Patient Problems (1) Acute respiratory distress Current Visit: Yes Status: Acute Plan to address problem: Multifactorial secondary to decompensated CHF and multiorgan system decompensation. Patient has wheezing and crackles consistent with COPD exacerbation and decompensated heart failure. I do feel polysubstance abuse plays a large role. Will place p -BiPAP. Apparent much improved. Saturating 94% 2 L. Stable to transfer to unit. Continue aggressive treatment. Nebulizers every 6 hours as needed -Aggressive blood pressure control -Diuresis -Empiric antibiotics -IV Solu-Medrol (2) CKD (chronic kidney disease) Current Visit: Yes Status: Acute Qualifiers: Chronic kidney disease stage: stage 2 (mild) Qualified Code(s): N18.2 - Chronic kidney disease, stage 2 (mild) Plan to address problem: avoid nephrotoxic agents we will repeat BUN/creatinine today. Creatinine now 2.0. (3) COPD (chronic obstructive pulmonary disease) Current Visit: Yes Status: Acute Plan to address problem: COPD nebulizer treatments Solu-Medrol BiPAP for now. Patient does not have a assessment services manager. With that pulmonology consult secondary to pulmonary edema. (4) Hypertensive emergency Current Visit: Yes Status: Acute Plan to address problem: Patient continues to have suboptimal control. Will increase Coreg to 12.5 twice daily (5) Pulmonary edema Current Visit: Yes Status: Acute Plan to address problem: iv lasix for cont diuresis for volume overload and pulmonary edema. (6) Pulmonary hypertension Current Visit: Yes Status: Acute Plan to address problem: Severe pulmonary hypertension. Patient appears possibly hospice appropriate. She does understand what hospice means. She does not want to come to the hospital and she feels she is suffering with pain and think hospice versus palliative care will help (7) Advance care planning Current Visit: No Status: Acute Plan to address problem: Hospice services. Patient is already may case management family aware. (8) Alcohol abuse Current Visit: No Status: Acute Plan to address problem: Patient should refrain from drinking I think she should not make a decision about hospice without being first sober from polysubstance abuse cocaine and alcohol. (9) Anxiety Current Visit: No Status: Acute (10) Atrial fibrillation Current Visit: No Status: Acute Qualifiers: Atrial fibrillation type: other persistent Plan to address problem: Patient is regular now will restart Eliquis she has had radioablation and has not had any problems with A. fib since that time. (11) Cocaine abuse Current Visit: No Status: Acute Plan to address problem: educated on abuse and lung dx (12) Polysubstance abuse Current Visit: No Status: Acute (13) Anxiety: reassurance. History Interval history: Patient seen and examined, still with shortness of breath Hospitalist Physical - Physical exam Narrative exam: General appearance: Present: mild respiratory distress, anxious - EENT Eyes: PERRL, EOM intact ENT: hearing intact, clear oral mucosa Ears: bilateral: normal - Respiratory Respiratory: right: other (Decreased breath sounds considerable wheezing poor air entry.), bilateral: diminished, rhonchi, wheezing - Cardiovascular Rhythm: regular Heart Sounds: Present: S1 & S2. Absent: gallop, rub Extremities: pulses intact, No edema, normal color, Full ROM - Gastrointestinal General gastrointestinal: Present: soft, non-tender, non-distended, normal bowel sounds - Musculoskeletal Musculoskeletal: generalized weakness - Constitutional Vitals: Temp Pulse Resp BP Pulse Ox 98.0 F 64 22 133/78 100 03/26/20 19:24 03/26/20 22:15 03/26/20 22:15 03/26/20 21:36 03/26/20 22:15 General appearance: Present: mild distress HEART Score - HEART Score EKG: Normal Age: 45-65 Risk factors: No known risk factors Troponin: Troponin T < 0.010 ng/mL (0.00-0.029) 03/24/20 07:01 Troponin: < normal limit Results - Labs CBC & Chem 7: 03/27/20 06:39 03/27/20 06:39 Labs: Laboratory Last Values WBC 11.1 K/mm3 (4.5-11.0) H 03/24/20 07:01 RBC 3.51 M/mm3 (3.65-5.03) L 03/24/20 07:01 Hgb 9.3 gm/dl (10.1-14.3) L 03/24/20 07:01 Hct 29.0 % (30.3-42.9) L 03/24/20 07:01 MCV 83 fl (79-97) 03/24/20 07:01 MCH 27 pg (28-32) L 03/24/20 07:01 MCHC 32 % (30-34) 03/24/20 07:01 RDW 19.4 % (13.2-15.2) H 03/24/20 07:01 Plt Count 257 K/mm3 (140-440) 03/24/20 07:01 Lymph % (Auto) 23.1 % (13.4-35.0) 03/24/20 07:01 [place] % (Auto) 11.7 % (0.0-7.3) H 03/24/20 07:01 Eos % (Auto) 1.4 % (0.0-4.3) 03/24/20 07:01 Baso % (Auto) 0.7 % (0.0-1.8) 03/24/20 07:01 Lymph # (Auto) 2.6 K/mm3 (1.2-5.4) 03/24/20 07:01 [place] # (Auto) 1.3 K/mm3 (0.0-0.8) H 03/24/20 07:01 Eos # (Auto) 0.2 K/mm3 (0.0-0.4) 03/24/20 07:01 Baso # (Auto) 0.1 K/mm3 (0.0-0.1) 03/24/20 07:01 Seg Neutrophils % 63.1 % (40.0-70.0) 03/24/20 07:01 Seg Neutrophils # 7.0 K/mm3 (1.8-7.7) 03/24/20 07:01 D-Dimer 261.32 ng/mlDDU (0-234) H 03/24/20 15:26 Sodium 138 mmol/L (137-145) 03/24/20 07:01 Potassium 4.2 mmol/L (3.6-5.0) 03/24/20 07:01 Chloride 104.2 mmol/L (98-107) 03/24/20 07:01 Carbon Dioxide 23 mmol/L (22-30) 03/24/20 07:01 Anion Gap 15 mmol/L 03/24/20 07:01 BUN 28 mg/dL (7-17) H 03/24/20 07:01 Creatinine 2.0 mg/dL (0.6-1.2) H 03/24/20 07:01 Estimated GFR 30 ml/min 03/24/20 07:01 BUN/Creatinine Ratio 14 % 03/24/20 07:01 Glucose 97 mg/dL (65-100) 03/24/20 07:01 Lactic Acid 1.90 mmol/L (0.7-2.0) 03/24/20 10:20 Calcium 8.3 mg/dL (8.4-10.2) L 03/24/20 07:01 Ferritin 72.8 ng/mL (10.0-200.0) 03/24/20 15:26 Total Bilirubin 0.40 mg/dL (0.1-1.2) 03/24/20 07:01 AST 32 units/L (5-40) 03/24/20 07:01 ALT 42 units/L (7-56) 03/24/20 07:01 Alkaline Phosphatase 112 units/L (35-129) 03/24/20 07:01 Troponin T < 0.010 ng/mL (0.00-0.029) 03/24/20 07:01 C-Reactive Protein 8.40 mg/dL (0.00-1.30) H 03/24/20 15:26 NT-Pro-B Natriuret Pep 8985 pg/mL (0-900) H 03/24/20 07:01 Total Protein 5.9 g/dL (6.3-8.2) L 03/24/20 07:01 Albumin 3.1 g/dL (3.9-5) L 03/24/20 07:01 Albumin/Globulin Ratio 1.1 % 03/24/20 07:01 Procalcitonin 0.07 ng/mL (<0.15) 03/24/20 15:26 Nasal Screen MRSA (PCR) Negative (Negative) 03/25/20 00:01 Coronavirus (PCR) Negative (Negative) 03/25/20 Unknown [place]/IV: Voiding Method Toilet IV Catheter Type [Left Forearm INT / Saline Lock ] IV Catheter Type [Left INT / Saline Lock Antecubital] Active Medications - Current Medications Current Medications: Generic Name Dose Route Start Last Admin Trade Name Freq PRN Reason Stop Dose Admin Acetaminophen 650 mg 03/24/20 10:51 10/26/20 17:31 Tylenol PO 650 mg Q4H PRN Administration Pain MILD(1-3)/Fever >100.5/[place]ARR[place] Al Hydrox/Mg Hydrox/Simethicone 30 ml 03/26/20 18:00 Alum-Mag Hydrox-Simeth 094-218-69ii/5ml PO Q4H PRN Indigestion Albuterol 2.5 mg 03/24/20 10:38 03/26/20 11:50 Proventil IH 2.5 mg Q4H PRN Administration Shortness Of Breath Albuterol/Ipratropium 1 ampul 03/26/20 08:00 03/26/20 21:18 Duoneb *Not For Prn Use* IH 1 ampul TIDRT MARCIO Administration Alprazolam 0.125 mg 03/24/20 10:38 03/26/20 21:35 Xanax PO 0.125 mg Q8H PRN Administration Agitation Apixaban 2.5 mg 03/24/20 12:00 03/26/20 21:36 Eliquis PO 2.5 mg BID MARCIO Administration Protocol Ascorbic Acid 500 mg 03/24/20 22:00 03/26/20 21:36 Vitamin C PO 500 mg BID MARCIO Administration Atorvastatin Calcium 40 mg 03/24/20 22:00 03/26/20 21:35 Lipitor PO 40 mg QHS MARCIO Administration Budesonide 0.5 mg 03/24/20 20:00 03/26/20 21:19 Pulmicort IH 0.5 mg Q12HRT MARCIO Administration Carvedilol 6.25 mg 03/24/20 12:00 03/26/20 21:36 Coreg PO 6.25 mg BID MARCIO Administration Diltiazem HCl 120 mg 03/24/20 12:00 03/26/20 19:37 Cardizem Cd PO Not Given DAILY MARCIO Famotidine 10 mg 03/25/20 22:00 03/26/20 21:35 Pepcid PO 10 mg BID MARCIO Administration Furosemide 20 mg 03/24/20 18:00 03/26/20 19:37 Lasix IV Not Given BID@0600,1800 [facility] Hydroxyzine Pamoate 50 mg 03/24/20 10:51 Vistaril PO Q6H PRN Anxiety Ceftriaxone Sodium 2 gm in 100 mls @ 200 mls/hr 03/24/20 06:50 03/26/20 19:38 Rocephin/Ns 2 Gm/100 Ml IV Not Given Q24HR MARCIO Protocol Azithromycin 500 mg/ Sodium 250 mls @ 250 mls/hr 03/25/20 11:00 03/26/20 19:39 Chloride IV 03/30/20 10:59 Not Given Q24HR MARCIO Protocol Methylprednisolone Sodium Succinate 80 mg 03/24/20 15:00 03/26/20 19:37 Solu-Medrol IV Not Given Q8H MARCIO Metoclopramide HCl 5 mg 03/24/20 11:30 03/26/20 21:36 Reglan PO 5 mg ACHS MARCIO Administration Nicotine 21 mg 03/24/20 12:00 03/26/20 19:38 Habitrol TD Not Given QDAY MARCIO Ondansetron HCl 4 mg 03/24/20 10:33 Zofran IV Q8H PRN Nausea And Vomiting Oxycodone/Acetaminophen 1 tab 03/24/20 10:38 Percocet 5/325 PO Q6H PRN Pain, Moderate (4-6) Potassium Chloride 10 meq 03/24/20 12:00 03/26/20 21:35 K-Dur PO 10 meq BID MARCIO Administration Sodium Chloride 10 ml 03/24/20 22:00 03/26/20 21:36 Sodium Chloride Flush Syringe 10 Ml IV 10 ml BID MARCIO Administration Sodium Chloride 10 ml 03/24/20 10:33 Sodium Chloride Flush Syringe 10 Ml IV PRN PRN LINE FLUSH Zinc Sulfate 220 mg 03/24/20 22:00 03/26/20 21:35 Zinc Sulfate PO 220 mg BID MARCIO Administration
[2020-03-27] MEDS: FUROSEMIDE 20 MG/2 ML INJ IV SCH (05:36)
[2020-03-27] MEDS: IPRATROPIUM/ALBUTEROL SULFATE 3 ML AMPUL.NEB IH SCH ×2 (08:29→13:25)
[2020-03-27] MEDS: BUDESONIDE 0.5 MG/2 ML NEBU IH SCH (08:29)
[2020-03-27 08:31] LABS: Hematocrit 29.5 % (30.3-42.9); Hemoglobin 9.6 gm/dl (10.1-14.3); Mean Corpuscular HGB Conc 33 % (30-34); Mean Corpuscular Volume 85 fl (79-97); Platelet Count 276 K/mm3 (140-440); Red Cell Distribution Width 19.9 % (13.2-15.2)
[2020-03-27] MEDS: methylPREDNISolone Sod Succinate 125 MG/2 ML INJ IV SCH ×2 (08:40→15:26)
[2020-03-27] MEDS: METOCLOPRAMIDE 10 MG TAB PO SCH ×3 (08:41→15:30)
[2020-03-27] MEDS ORDERED: cefTRIAXone/NS 2 GM/100 ML IVPB IV ONE (10:00)
--- NOTE | 2020-03-27 10:21 | XRay Report ---
CHEST 2 VIEWS INDICATION / CLINICAL INFORMATION: Follow up on pulmonary edema.. COMPARISON: 03/24/2020 FINDINGS: SUPPORT DEVICES: None. HEART / MEDIASTINUM: Stable. LUNGS / PLEURA: Mild prominent central and perihilar interstitial opacities. No significant effusion. No pneumothorax. ADDITIONAL FINDINGS: No significant additional findings. IMPRESSION: 1. Unchanged findings suggestive of mild pulmonary edema. Signer Name: Patrick Hammer MD Signed: 03/27/2020 10:17 AM Workstation Name: [id number]
[2020-03-27] MEDS: dilTIAZem CD 120 MG CAP PO SCH (10:35)
[2020-03-27] MEDS: NICOTINE 21 MG/24 HR PATCH TD SCH (10:36)
[2020-03-27] MEDS: carvediloL 6.25 MG TAB PO SCH (10:36)
[2020-03-27] MEDS: FAMOTIDINE 10 MG TAB PO SCH (10:37)
[2020-03-27] MEDS: APIXABAN 2.5 MG TAB PO SCH (10:37)
[2020-03-27] MEDS: POTASSIUM CHLORIDE ER 10 MEQ TAB PO SCH (10:38)
[2020-03-27] MEDS: cefTRIAXone/NS 2 GM/100 ML 2 GM/100 ML BAG IV SCH (10:46)
[2020-03-27] MEDS: AZITHROMYCIN 500 MG in SODIUM CHLORIDE 0.9% 250ML 250 ML IV SCH (10:55)
[2020-03-27] MEDS: ASCORBIC ACID 500 MG TAB PO SCH (11:00)
[2020-03-27] MEDS: ZINC SULFATE 220 MG CAP PO SCH (11:01)
--- NOTE | 2020-03-27 13:10 | Discharge Summary ---
Providers - Providers Date of Admission: 03/24/20 09:35 Attending physician: AIMEE PITTMAN MD 03/24/20 10:38 Consult to Physician [CONS] Routine Comment: Consulting Provider: SAEID LYNN Physician Instructions: Reason For Exam: sob pulmonay htn 03/25/20 14:52 Physical Therapy Evaluation and Treat [CONS] Routine Comment: Reason For Exam: Debility Primary care physician: LYRIC SIBLEY MD Hospitalization Reason for admission: Shortness of breath Condition: Stable Hospital course: Patient is a 65-year-old female with past medical history of COPD, tobacco use which she says has cut down. With also associated history of substance abuse cocaine in particular anxiety disorder and hypertension who presents to the hospital with shortness of breath. Patient required BiPAP and oxygen while she has been here. Chest x-ray showed some mild pulmonary edema. She was initially managed in the IMCU and has since improved some. She was being planned for admission to home hospice for support services and palliative care management prior to this admission. She is clinically stable and will be discharged on 2 L of oxygen with home hospice. Extensive counseling has been provided to this patient on need to quit substance use and tobacco use disorder 15 to 20 minutes counseling was done. She verbalized understanding was advanced care planning was also discussed in detail. 03/26: States she is enrollong in Pallative care with hospice. Discussed with pulmonary, will adjust meds, recommend outpatient pulmonary eval 03/27: Clinically improved for discharge with home hospice FOR COPD PALLATIVE CARE - Patient Problems (1) Acute respiratory distress Current Visit: Yes Status: Acute Plan to address problem: Multifactorial secondary to decompensated CHF and multiorgan system decompensation. Patient has wheezing and crackles consistent with COPD exacerbation and decompensated heart failure. I do feel polysubstance abuse plays a large role. Will place p -BiPAP. Apparent much improved. Saturating 94% 2 L. Stable to transfer to unit. Continue aggressive treatment. Nebulizers every 6 hours as needed -Aggressive blood pressure control -Diuresis -Empiric antibiotics -IV Solu-Medrol (2) CKD (chronic kidney disease) Current Visit: Yes Status: Acute Qualifiers: Chronic kidney disease stage: stage 2 (mild) Qualified Code(s): N18.2 - Chronic kidney disease, stage 2 (mild) Plan to address problem: avoid nephrotoxic agents we will repeat BUN/creatinine today. Creatinine now 2.0. (3) COPD (chronic obstructive pulmonary disease) Current Visit: Yes Status: Acute Plan to address problem: COPD nebulizer treatments Solu-Medrol BiPAP for now. Patient does not have a slot floor attendant. With that pulmonology consult secondary to pulmonary edema. (4) Hypertensive emergency Current Visit: Yes Status: Acute Plan to address problem: Patient continues to have suboptimal control. Will increase Coreg to 12.5 twice daily (5) Pulmonary edema Current Visit: Yes Status: Acute Plan to address problem: iv lasix for cont diuresis for volume overload and pulmonary edema. (6) Pulmonary hypertension Current Visit: Yes Status: Acute Plan to address problem: Severe pulmonary hypertension. Patient appears possibly hospice appropriate. She does understand what hospice means. She does not want to come to the hospital and she feels she is suffering with pain and think hospice versus palliative care will help (7) Advance care planning Current Visit: No Status: Acute Plan to address problem: Hospice services. Patient is already may case management family aware. (8) Alcohol abuse Current Visit: No Status: Acute Plan to address problem: Patient should refrain from drinking I think she should not make a decision about hospice without being first sober from polysubstance abuse cocaine and alcohol. (9) Anxiety Current Visit: No Status: Acute (10) Atrial fibrillation Current Visit: No Status: Acute Qualifiers: Atrial fibrillation type: other persistent Plan to address problem: Patient is regular now will restart Eliquis she has had radioablation and has not had any problems with A. fib since that time. (11) Cocaine abuse Current Visit: No Status: Acute Plan to address problem: educated on abuse and lung dx (12) Polysubstance abuse Current Visit: No Status: Acute (13) Anxiety: reassurance. Disposition: DC-50 TO HOSPICE (HOME) Time spent for discharge: 35 minutes Core Measure Documentation - Palliative Care Palliative Care/ Comfort Measures: Palliative Care/Comfort Measures (Palliative care with hospice, for support services only) - Core Measures Any of the following diagnoses?: none Exam - Physical Exam Narrative exam: VITAL SIGNS: Reviewed. GENERAL: The patient appears normally developed, mildly anxious. Vital signs as documented. HEAD: No signs of head trauma. EYES: Pupils are equal. Extraocular motions intact. EARS: Hearing grossly intact. MOUTH: Oropharynx is normal. NECK: No adenopathy, no JVD. CHEST: Chest with dimished breath sounds bilaterally. No wheezes, rales, or rhonchi. CARDIAC: Regular rate and rhythm. S1 and S2, without murmurs, gallops, or rubs. VASCULAR: No Edema. Peripheral pulses normal and equal in all extremities. ABDOMEN: Soft, non tender and non distended. No rebound or guarding, and no masses palpated. Bowel Sounds normal. MUSCULOSKELETAL: Good range of motion of all major joints. Extremities without clubbing, cyanosis or edema. NEUROLOGIC EXAM: Alert and oriented x 3 No focal sensory or strength defic its. Speech normal. Follows commands. PSYCHIATRIC: Mood normal. SKIN: detail exam as documented in skin assessment - Constitutional Vitals: Temp Pulse Resp BP Pulse Ox 97.3 F L 72 20 174/79 99 03/27/20 11:53 03/27/20 11:53 03/27/20 10:00 03/27/20 11:53 03/27/20 11:53 Plan Activity: advance as tolerated, fall precautions Diet: low fat Special Instructions: record daily weights, record daily BP diary, home oxygen via (nasal cannula @ 2 liters per minute) Durable Medical Equipment Needed Upon Discharge: Oxygen Follow up with: PRIMARY CARE, [Referring] - 3-5 Days SAEID LYNN MD [Staff Physician] - 7 Days Prescriptions: AtorvaSTATin [Lipitor] 40 mg PO QHS #30 tablet dilTIAZem CD [Cardizem CD] 120 mg PO DAILY #30 cap carvediloL [Coreg] 6.25 mg PO BID #60 Apixaban [Eliquis] 2.5 mg PO BID #30 tablet oxyCODONE /ACETAMINOPHEN [Percocet 5/325 mg] 1 tab PO Q6H PRN #10 tablet PRN Reason: Pain, Moderate (4-6) hydrOXYzine PAMOATE [Vistaril] 50 mg PO Q6HR PRN #14 capsule PRN Reason: Anxiety Ascorbic Acid [Vitamin C] 500 mg PO BID #60 tablet Azithromycin [Zithromax TAB] 500 mg PO QDAY #3 tablet Ipratropium/Albuterol Sulfate [DUONEB *Not for PRN Use*] 1 ampul IH TIDRT #90 ampul.neb
--- NOTE | 2020-03-27 13:57 | Progress Note ---
Assessment and Plan Patient alert awake. Still complaining cough and shortness of breath. Patient is on room air O2 saturation 99%. Patient has heavy history of smoking. 2 packs x 53 years. Counseled to stop smoking. History of alcohol and drug abuse. Says not drinking alcohol or using drugs now. 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 Patient allergic to sulfa and codeine. Patient and she has 1 child. Patient has history of COPD , Hypertension and CKD and anxiety. Chest xray done 03/24/20 reported Mild cardiomegaly and pulmonary edema. Obtaining ABGs. Recommend PFTs as out patient. Patient undergoing physical therapy. Complaining some abdominal discomfort to day. - Patient Problems (1) Acute respiratory distress Current Visit: Yes Status: Acute Plan to address problem: O2 2 litres via nasal canula. Albuterol/atrovent aerosol treatments q 6 hours. Continue I/V solumedrol. Patient is on zithromax and ceftriaxone. Patient is on Apixaban 2,5 mg po BID. Patient is on Famotidine. ABGs on room air. (2) COPD (chronic obstructive pulmonary disease) Current Visit: Yes Status: Acute Plan to address problem: O2 2 litres via nasal canula. Albuterol/atrovent aerosol treatments q 6 hours. Continue I/V solumedrol. Patient is on zithromax and ceftriaxone. Patient is on Apixaban 2,5 mg po BID. Patient is on Famotidine. Counseled to stop smoking. Patient is on Nicotin patch. Recommend PFTs as out patient. (3) Pulmonary hypertension Current Visit: Yes Status: Acute Plan to address problem: O2 supplementation Continue bronchodilators PFTs as out patient. Optimize treatment for CHF. (4) CKD (chronic kidney disease) Current Visit: Yes Status: Acute Qualifiers: Chronic kidney disease stage: stage 2 (mild) Qualified Code(s): N18.2 - Chronic kidney disease, stage 2 (mild) Plan to address problem: Management as per nephrology. (5) Hypertensive emergency Current Visit: Yes Status: Acute Plan to address problem: Management as per primary care. (6) Atrial fibrillation Current Visit: No Status: Acute Qualifiers: Atrial fibrillation type: other persistent Plan to address problem: Patient is on apixaban. Management as per cardiology. (7) CHF exacerbation Current Visit: No Status: Acute Qualifiers: Heart failure type: diastolic Qualified Code(s): I50.33 - Acute on chronic diastolic (congestive) heart failure Plan to address problem: Patient is on Coreg, Cardiazem and Lasix. Management as per cardiology. Subjective Date of service: 03/27/20 Principal diagnosis: Acute respiratory failure Interval history: Patient alert awake. Still complaining cough and shortness of breath. Patient is on room air. O2 saturation 99%. Patient has heavy history of smoking. 2 packs x 53 years. Counseled to stop smoking. History of alcohol and drug abuse. Says not drinking alcohol or using drugs now. 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 Patient allergic to sulfa and codeine. Patient and she has 1 child. Patient has history of COPD , Hypertension and CKD and anxiety. Chest xray done 03/24/20 reported Mild cardiomegaly and pulmonary edema. Obtaining ABGs. Recommend PFTs as out patient. Patient undergoing physical therapy. Patient complaining some abdominal discomfort to day. Objective Vital Signs - 12hr 03/27/20 03/27/20 03/27/20 03:32 06:13 07:13 Temperature 97.7 F Pulse Rate 63 Pulse Rate [ Anterior Bilateral Throughout] Respiratory 16 16 20 Rate Respiratory Rate [Anterior Bilateral Throughout] Blood Pressure 131/47 O2 Sat by Pulse 95 Oximetry 03/27/20 03/27/20 03/27/20 07:46 08:29 10:00 Temperature 98.1 F Pulse Rate 71 72 Pulse Rate [ 69 Anterior Bilateral Throughout] Respiratory 20 20 Rate Respiratory 20 Rate [Anterior Bilateral Throughout] Blood Pressure 161/84 O2 Sat by Pulse 100 100 Oximetry 03/27/20 11:53 Temperature 97.3 F L Pulse Rate 72 Pulse Rate [ Anterior Bilateral Throughout] Respiratory Rate Respiratory Rate [Anterior Bilateral Throughout] Blood Pressure 174/79 O2 Sat by Pulse 99 Oximetry Constitutional: no acute distress, alert Eyes: non-icteric ENT: oropharynx moist Neck: supple, no lymphadenopathy Ascultation: Bilateral: rales, other (Prolonged expiratory phase.) Cardiovascular: regular rate and rhythm Gastrointestinal: normoactive bowel sounds, soft, non-tender Integumentary: normal Extremities: no cyanosis, no edema Neurologic: normal mental status, non-focal exam, pupils equal and round, CN II- XII normal Psychiatric: anxious CBC and BMP: 03/27/20 06:39 03/27/20 06:39 ABG, PT/INR, D-dimer: PT/INR, D-dimer D-Dimer 261.32 ng/mlDDU (0-234) H 03/24/20 15:26 Abnormal lab findings: Abnormal Labs 03/24/20 03/24/20 03/24/20 07:01 07:01 07:01 WBC 11.1 H RBC 3.51 L Hgb 9.3 L Hct 29.0 L MCH 27 L RDW 19.4 H [place] % (Auto) 11.7 H [place] # (Auto) 1.3 H D-Dimer Sodium BUN 28 H Creatinine 2.0 H Glucose Lactic Acid 0.60 L Calcium 8.3 L C-Reactive Protein NT-Pro-B Natriuret Pep 8985 H Total Protein 5.9 L Albumin 3.1 L 03/24/20 03/24/20 03/27/20 15:26 15:26 06:39 WBC RBC 3.50 L Hgb 9.6 L Hct 29.5 L MCH RDW 19.9 H [place] % (Auto) [place] # (Auto) D-Dimer 261.32 H Sodium BUN Creatinine Glucose Lactic Acid Calcium C-Reactive Protein 8.40 H NT-Pro-B Natriuret Pep Total Protein Albumin 03/27/20 06:39 WBC RBC Hgb Hct MCH RDW [place] % (Auto) [place] # (Auto) D-Dimer Sodium 135 L BUN 51 H Creatinine 2.2 H Glucose 129 H Lactic Acid Calcium 8.0 L C-Reactive Protein NT-Pro-B Natriuret Pep Total Protein Albumin Chest x-ray: report reviewed, image reviewed Additional Studies: CHEST 2 VIEWS 03/27/20 INDICATION / CLINICAL INFORMATION: Follow up on pulmonary edema.. COMPARISON: 03/24/2020 FINDINGS: SUPPORT DEVICES: None. HEART / MEDIASTINUM: Stable. LUNGS / PLEURA: Mild prominent central and perihilar interstitial opacities. No significant effusion. No pneumothorax. ADDITIONAL FINDINGS: No significant additional findings. IMPRESSION: 1. Unchanged findings suggestive of mild pulmonary edema.
[2020-03-27] MEDS: ACETAMINOPHEN 325 MG TAB PO PRN (15:22)
[2020-03-27] MEDS: ALPRAZolam 0.25 MG TAB PO PRN (15:22)
[2020-03-27 15:30] VITALS: BP 149/117
[2020-03-28] MEDS ORDERED: AZITHROMYCIN 250 MG TAB PO SCH (10:00)
== END 2020-03-27 18:03 | disposition hospice, home (50) ==
LOC: ED 06:40 → IMCU 09:35 → 4A 03-25 20:38
PROVIDERS: ADMIT Internal Medicine; ATTEND Internal Medicine
DX: I16.1 Hypertensive emergency (principal); Z20.828 Contact with and (suspected) exposure to other viral communicable diseases; I13.0 Hypertensive heart and chronic kidney disease with heart failure and stage 1 through stage 4 chronic kidney disease, or unspecified chronic kidney disease; I50.9 Heart failure, unspecified; N18.30 Chronic kidney disease, stage 3 unspecified; R06.03 Acute respiratory distress; J81.0 Acute pulmonary edema; J44.9 Chronic obstructive pulmonary disease, unspecified; I48.91 Unspecified atrial fibrillation; D86.9 Sarcoidosis, unspecified; F41.9 Anxiety disorder, unspecified; F10.10 Alcohol abuse, uncomplicated; F17.210 Nicotine dependence, cigarettes, uncomplicated; F25.9 Schizoaffective disorder, unspecified; G51.0 Bell's palsy; F14.10 Cocaine abuse, uncomplicated; Z90.49 Acquired absence of other specified parts of digestive tract; Z90.710 Acquired absence of both cervix and uterus
CPT/HCPCS: 36415; 71045; 71046; 80048; 80053; 82140; 82728; 83880; 84145; 84484; 85025; 85027; 85379; 86140; 87040; 87641; 93005; 94640; 94644; 94660; 96365; 96366; 96367; 96368; 96375; 96376; 97161; 99291; 99406; A9270; G0378; J0456; J0696; J1940; J2920; J2930; J3475; J7050; U0003